=== PATIENT | male | born 1955 | race Caucasian/White ===

== ENCOUNTER 2023-07-12 13:19 | Outpatient (CLI) | payer MEDICARE, OTHER, SELFPAY ==
[2023-07-12 15:19] LABS: Absolute Lymphocyte Count 1.41 X10^3/uL (0.83-4.51); Absolute Neutrophil Count 4.5 X10^3/uL (2.0-7.7); Basophil# 0.03 X10^3/uL; Basophil% 0.4 % (0-1); Eosinophil# 0.33 X10^3/uL; Eosinophils% 4.9 % (0-5); Hematocrit 40.2 % (40-54); Hemoglobin 13.6 g/dL (13.0-16.5); Lymphocyte # 1.41 X10^3/ul (0.83-4.51); Lymphocyte % 20.8 % (19-41); Mean Corp Hgb Conc 33.8 g/dL (32-36); Mean Corpuscular Hgb 30.6 pg (27.0-32.0); Mean Corpuscular Volume 90.5 fL (80-94); Mean Platelet Vol. 8.6 fl (6.2-12.0); Monocyte# 0.49 X10^3/uL; Monocyte% 7.2 % (0-10); NRBC Flagged by Analyzer 0 % (0-5); Neutrophil # 4.48 X10^3/uL (2.7-7.7); Neutrophil % 66.1 % (47-70); Platelet Count 188 K/mm3 (150-450); RBC Distribution Width CV 14.4 % (11.6-14.6); RBC Distribution Width SD 46.5 fl (35.1-43.9); Red Blood Count 4.44 M/mm3 (4.6-6.2); White Blood Count 6.8 K/mm3 (4.4-11.0)
[2023-07-12 15:41] LABS: ALB/GLOB Ratio 0.9 RATIO (0.9-2.4); AST(SGOT) 30 U/L (15-37); Alanine Aminotransfer ALT/SGPT 50 U/L (16-61); Albumin, Serum 3.6 g/dL (3.2-5.0); Alkaline Phosphatase 79 U/L (45-117); Anion Gap 5 (5-15); BUN 16 mg/dL (7-18); Calcium,Total 9.1 mg/dL (8.5-10.1); Chloride 105 mmol/L (98-107); Cholesterol 183 mg/dL (200); Creatinine, Serum 1.23 mg/dL (0.70-1.30); EST Glomerular Filtration Rate 62 mL/min (>60); Est Glom Filt Rate - Afr Amer 75 mL/min (>60); Globulin 4.2 g/dL (2.2-4.2); Glucose 176 mg/dL (74-106); High Density Lipoprotein 37 mg/dL; PSA,Total - Annual Screen 3.16 ng/mL (0.00-4.00); Potassium 4.4 mmol/L (3.5-5.1); Protein, Total 7.8 g/dL (6.4-8.2); Sodium Level 138 mmol/L (136-145); Triglycerides 205 mg/dL; Very Low Density Lipoprotein 41 mg/dL (5-40)
== END 2023-07-12 23:59 | disposition home or self-care (01) ==
LOC: BIMLAB 13:19
PROVIDERS: PCP Physician Assistant; Referring Provider Physician Assistant; Visit Provider Physician Assistant
DX: Z12.5 Encounter for screening for malignant neoplasm of prostate (principal); E11.65 Type 2 diabetes mellitus with hyperglycemia
CPT/HCPCS: 36415; 80053; 80061; 84153; 85025; G0103

== ENCOUNTER → 2023-07-28 | Outpatient (CLI) | payer MEDICARE, OTHER, SELFPAY ==
--- NOTE | 2023-07-28 07:55 | CT_ITS ---
STUDY: CT PELVIS WITH CONTRAST REASON FOR EXAM: Male, 68 years old. Rectal abscess vs fistula -- Fistulogram / attention superior rectum RADIATION DOSAGE (If Supplied By Facility): CTDIvol = ( 19.08 ) mGy, DLP = ( 1047.56 ) mGycm TECHNIQUE: Transaxial imaging of the pelvis was performed without oral contrast. 100 CC ISOVUE 300 was administered intravenously. Multiplanar coronal and sagittal images were reformatted. Individualized dose optimization techniques were used for this CT. COMPARISON: None. FINDINGS: Distended urinary bladder. Minimally thickened bladder wall. The prostate is enlarged. It measures 4.8 cm x 4.6 cm. This causes indentation at the bladder base. Normal visualized small intestine. There are scattered colonic diverticula of the sigmoid colon consistent with chronic diverticulosis. There is no pelvic fluid. There is no pelvic lymphadenopathy or mass lesion. There is scattered atherosclerotic calcification of the pelvic arteries. Small lymph nodes are seen in both groins. The largest lymph node in the right groin measures 1.4 cm. The largest lymph node in the left groin measures 2.1 cm. There are degenerative changes of the visualized lumbar spine. CT/Pelvis WITH IV Contrast IMPRESSION: No evidence of a perirectal abscess. Prostatic enlargement with indentation of the bladder base Mild degree of bladder wall thickening. Electronically Signed: Arnaud Bello MD at 13:35 EDT ,
== END | disposition home or self-care (01) ==
LOC: CT 07:55
PROVIDERS: PCP Physician Assistant; Referring Provider Physician Assistant; Visit Provider Physician Assistant
DX: K60.4 Rectal fistula (principal)
CPT/HCPCS: 72193; Q9967

== ENCOUNTER → 2024-07-12 | Outpatient (CLI) | payer MEDICARE, SELFPAY ==
[2024-07-12 18:12] LABS: Hematocrit 44.2 % (40-54); Mean Corp Hgb Conc 33.9 g/dL (32-36); Mean Corpuscular Hgb 31.1 pg (27.0-32.0); Mean Corpuscular Volume 91.5 fL (80-94); Platelet Count 219 K/mm3 (150-450); RBC Distribution Width CV 13.7 % (11.6-14.6); Red Blood Count 4.83 M/mm3 (4.6-6.2); White Blood Count 8.4 K/mm3 (4.4-11.0)
[2024-07-12 18:43] LABS: ALB/GLOB Ratio 1.2 RATIO (0.9-2.4); AST(SGOT) 42 U/L (<=37); Alanine Aminotransfer ALT/SGPT 67 U/L (<=46); Albumin, Serum 4.2 g/dL (3.4-4.8); Alkaline Phosphatase 80 U/L (40-129); Anion Gap 12 (5-15); BUN 21 mg/dL (4-19); BUN/Creat Ratio 16.1 RATIO (10-20); Calcium,Total 9.5 mg/dL (7.6-11.0); Carbon Dioxide 22.8 mmol/L (21.0-32.0); Chloride 102 mmol/L (98-108); Cholesterol 184 mg/dL (<=200); Creatinine, Serum 1.29 mg/dL (0.70-1.20); EST Glomerular Filtration Rate 60 (>60); Globulin 3.6 g/dL (2.2-4.2); Glucose 187 mg/dL (70-99); High Density Lipoprotein 34 mg/dL; Low Density Lipoprotein Calc. 119 mg/dL; Potassium 4.8 mmol/L (3.3-5.1); Protein, Total 7.7 g/dL (5.9-8.4); Sodium Level 136 mmol/L (133-145); Total Bilirubin 0.51 mg/dL (0.00-1.30); Triglycerides 152 mg/dL; Very Low Density Lipoprotein 30 mg/dL (5-40); cholesterol:hdl ratio screen 5.38
[2024-07-12 18:46] LABS: PSA,Total - Annual Screen 2.28 ng/mL (0.02-4.00)
== END | disposition home or self-care (01) ==
LOC: BIMLAB 14:57
PROVIDERS: PCP Physician Assistant; Referring Provider Physician Assistant; Visit Provider Physician Assistant
DX: E11.65 Type 2 diabetes mellitus with hyperglycemia (principal); R03.0 Elevated blood-pressure reading, without diagnosis of hypertension; E66.9 Obesity, unspecified; Z12.5 Encounter for screening for malignant neoplasm of prostate
CPT/HCPCS: 36415; 80053; 80061; 82306; 84153; 85027; G0103

== ENCOUNTER → 2024-12-11 | Outpatient (CLI) | payer MEDICARE, SELFPAY ==
[2024-12-11 13:06] LABS: Hematocrit 41.1 % (40-54); Hemoglobin 14.2 g/dL (13.0-16.5); Immature Granulocytes Count 0.100 X10^3/uL (0.0-0.0); Mean Corp Hgb Conc 34.5 g/dL (32-36); Mean Corpuscular Volume 86.5 fL (80-94); Mean Platelet Vol. 8.9 fl (6.2-12.0); NRBC Flagged by Analyzer 0 % (0-5); POSITIVE DIFFERENTIAL YES; Platelet Count 241 K/mm3 (150-450); RBC Distribution Width CV 15.3 % (11.6-14.6); RBC Distribution Width SD 47.4 fl (35.1-43.9); Red Blood Count 4.75 M/mm3 (4.6-6.2); White Blood Count 13.0 K/mm3 (4.4-11.0)
[2024-12-11 13:13] LABS: Differential Indicated SCAN CRITERIA MET
[2024-12-11 14:14] LABS: AST(SGOT) 19 U/L (<=37); Alanine Aminotransfer ALT/SGPT 12 U/L (<=46); Albumin, Serum 3.8 g/dL (3.4-4.8); Alkaline Phosphatase 91 U/L (40-129); Anion Gap 12 (5-15); BUN 27 mg/dL (4-19); BUN/Creat Ratio 20.5 RATIO (10-20); Calcium,Total 9.3 mg/dL (7.6-11.0); Carbon Dioxide 21.2 mmol/L (21.0-32.0); Chloride 107 mmol/L (98-108); Cholesterol 73 mg/dL (<=200); Globulin 3.3 g/dL (2.2-4.2); Glucose 95 mg/dL (70-99); Low Density Lipoprotein Calc. 16 mg/dL; Potassium 3.5 mmol/L (3.3-5.1); Triglycerides 110 mg/dL; Very Low Density Lipoprotein 22 mg/dL (5-40); cholesterol:hdl ratio screen 2.09
[2024-12-12 16:09] LABS: Immunoglobulin A 242 mg/dL (61-437)
== END | disposition home or self-care (01) ==
LOC: LAB 12:03
PROVIDERS: PCP Physician Assistant; Referring Provider Physician Assistant; Visit Provider Physician Assistant
DX: E11.65 Type 2 diabetes mellitus with hyperglycemia (principal); D64.9 Anemia, unspecified; R19.7 Diarrhea, unspecified; I25.10 Atherosclerotic heart disease of native coronary artery without angina pectoris
CPT/HCPCS: 36415; 80053; 80061; 82784; 83516; 85025; 86255

== ENCOUNTER → 2024-12-14 | Outpatient (CLI) | payer MEDICARE, SELFPAY ==
--- OUTSIDE RECORDS SUMMARY | 2024-12-14 07:08 | XMS RPT_ITS | CCD ---
Author Organization [facility] Care Team Providers Care Neurophysiologist Name Role Phone BOB FELDMAN Unavailable Unavailable IMCA Unavailable Unavailable IMCA Unavailable Unavailable Errol Dove Unavailable Unavailabl e IMCA Unavailable Unavailable BOB FELDMAN Unavailable Unavailable BOB FELDMAN Unavailable Unavailable IMCA Unavailable Unavailable Dave Osman Jr. Primary Care Provider Dave Osman Jr. Primary Care Provider Trisha DOZIER, Deirdre Pastrana Primary Care Provider AMADO Ta Attending Provider [phone] AMADO Ta Primary Care Provider DEBBY Ibrahim Attending Provider Unavailable Mario Ta Primary Care Provider [phone] Mario Ta Attending Provider [phone] Mario Ta Referring Provider [phone] Mario Bellamy Primary Care Provider [phone] JANAY WEBSTER Admitting Unavailable SEAMUS WEBSTERI Attending Unavailable MARIO BELLAMY Primary Care Unavailable OSBALDO ARREOLA Consulting Unavailable Mario Ta Primary Care Provider [phone] Mario Ta Attending Provider [phone] Mario Ta Referring Provider [phone] Mario Ta Primary Care Provider [phone] Mario Ta Attending Provider [phone] Mario Ta Referring Provider [phone] EMILY TOMAS Admitting Unavailable DAVE GAINES Attending Unavailable MARIO BELLAMY Primary Care Unavailable MOISES GARCIA Consulting Unavailable MICHALE MARINELLIH Attending Unavailable WAYT, MARIO P Primary Care Unavailable PISTONE, SHANTELL Attending Unavailable WAYT, MARIO P Primary Care Unavailable WAYT, MARIO P Primary Care Unavailable MAHENDRA DENT Referring Unavailable HAWRYLUK, TANI Attending Unavailable WAYT, MARIO P Primary Care Unavailable PISTONE, SHANTELL Attending Unavailable WAYT, MARIO P Primary Care Unavailable HAWRYLUK, TANI Referring Unavailable WAYT, MARIO P Primary Care Unavailable HAWRYLUK, TANI Attending Unavailable HAWRYLUK, TANI Referring Unavailable WAYT, MARIO P Primary Care Unavailable Wayt PA, Mario Referring Unavailable Wayt PA, Mario Attending Unavailable Wayt PA, Mario Primary Care Unavailable Wayt PA, Mario Primary Care Unavailable Wayt PA, Mario Referring Unavailable Wayt PA, Mario Attending Unavailable Wayt PA, Mario Referring Unavailable Wayt PA, Mario Attending Unavailable Wayt PA, Mario Primary Care Unavailable Wayt PA, Mario Referring Unavailable Wayt PA, Mario Attending Unavailable Wayt PA, Mario Primary Care Unavailable Wayt PA, Mario Referring Unavailable Wayt PA, Mario Attending Unavailable Wayt PA, Mario Primary Care Unavailable Wayt PA, Mario Referring Unavailable Wayt PA, Mario Attending Unavailable Wayt PA, Mario Primary Care Unavailable Wayt PA, Mario Primary Care Unavailable Wayt PA, Mario Referring Unavailable Wayt PA, Mario Attending Unavailable Wayt PA, Mario Primary Care Unavailable Wayt PA, Mario Referring Unavailable Wayt PA, Mario Attending Unavailable Wayt PA, Mario Referring Unavailable Wayt PA, Mario Attending Unavailable Wayt PA, Mario Primary Care Unavailable Wayt PA, Mario Primary Care Unavailable Wayt PA, Mario Referring Unavailable Wayt PA, Mario Attending Unavailable Medications Current Medications Medication Drug Class(es) Dates Sig (Normalized) Sig (Original) acetaminophen 500 mg oral capsule (15 sources) Start: 09-25-2024 take 2 capsules by mouth every four hours as needed Acetaminophen 500 mg capsule Active 1000 mg PO Q4H as needed September 25, 2024 12:00am Start: 09-05-2024 End: 10-03-2024 take 2 tablets by mouth four times daily acetaminophen (TYLENOL) 500 mg tablet Take 2 tablets by mouth four times daily. 09/05/2024 10/03/2024 Discontinued (Course of therapy completed) aspirin 81 mg oral tablet (19 sources) Platelet Aggregation Inhibitor, Nonsteroidal Anti-inflammatory Drug Start: 12-06-2024 take 1 tablet by mouth once daily in the morning Aspirin 81 mg tablet Active 81 mg PO EVERY MORNING December 06, 2024 2:49pm Start: 10-03-2024 End: 11-02-2024 take 1 tablet by mouth once daily aspirin 81 mg chewable tablet Take 1 tablet by mouth once daily. 420 tablet 10/03/2024 Active Start: 09-25-2024 End: 12-06-2024 take 2 tablets by mouth once daily in the morning Aspirin 81 mg tablet Discontinued 162 mg PO EVERY MORNING September 25, 2024 12:00am December 06, 2024 2:50pm Start: 09-06-2024 End: 10-06-2025 take 2 tablets by mouth once daily, then take 1 tablet by mouth once daily aspirin 81 mg chewable tablet Take 2 tablets by mouth once daily for 30 days, THEN 1 tablet once daily. 420 tablet 09/06/2024 10/03/2024 Discontinued (Adjust Sig - Block E-Cancel) atorvastatin 40 mg oral tablet (20 sources) HMG-CoA Reductase Inhibitor Start: 09-25-2024 End: 10-16-2024 take 2 tablets by mouth once daily Atorvastatin 20 mg tablet Discontinued 40 mg PO daily September 25, 2024 12:57pm October 16, 2024 4:06pm Start: 09-06-2024 End: 01-01-2025 take 1 tablet by mouth once daily atorvastatin (LIPITOR) 40 mg tablet Take 1 tablet by mouth once daily. 90 tablet 10/03/2024 01/01/2025 Active Start: 08-09-2024 End: 09-25-2024 take 1 tablet by mouth once daily Atorvastatin 20 mg tablet Discontinued 20 mg PO daily 30 2 August 09, 2024 12:00am September 25, 2024 1:02pm benoxinate hydrochloride 4 mg/ml / fluorescein sodium 2.5 mg/ml ophthalmic solution (3 sources) Diagnostic Dye Start: 12-20-2021 End: 12-20-2021 fluorescein-benoxinate 0.25-0.4 % 1 Drop (FLURESS) Start: 12-09-2021 End: 12-09-2021 fluorescein-benoxinate 0.25- 0.4 % 1 Drop (FLURESS) Start: 11-17-2021 End: 11-18-2021 fluorescein-benoxinate 0.25- 0.4 % 1 Drop (FLURESS) finasteride 5 mg oral tablet (12 sources) 5-alpha Reductase Inhibitor Start: 09-20-2024 End: 10-16-2024 finasteride (PROSCAR) 5 mg tablet Take 5 mg by mouth. 09/20/2024 Active glucagon (rdna) 1 mg injection (11 sources) Antihypoglycemic Agent Start: 09-05-2024 glucago n 1 mg/mL injection Inject 1 mg intramuscularly as needed (for hypoglycemia). 09/05/2024 Active 3 ml insulin glargine 100 unt/ml pen injector (20 sources) Insulin Analog Start: 10-16-2024 End: 10-29-2024 Insulin Glargine (Lantus Solostar U-100 Insulin) 100 unit/mL (3 mL) insulin pen Active 40 U SC EVERY MORNING 15 October 29, 2024 4:30pm Start: 10-03-2024 inject 40 [IU] by duff bcutaneous injection once daily in the morning insulin glargine 100 unit/mL (3 mL) Inject 40 Units subcutaneously every morning. 10/03/2024 Active Start: 09-25-2024 End: 10-16-2024 Insulin Glargine (Lantus Yamini ostar U-100 Insulin) 100 unit/mL (3 mL) insulin pen Discontinued 32 U SC EVERY MORNING 15 September 26, 2024 5:13pm October 16, 2024 4:09pm Start: 09-05-2024 End: 10-03-2024 inject 25 [IU] by subcutaneous injection once daily in the morning insulin glargine 100 unit/mL (3 mL) Inject 25 Units subcutaneously every morning. 09/05/2024 10/03/2024 Discontinued 3 ml insulin lispro 100 unt/ml pen injector (20 sources) Insulin Analog Start: 10-16-2024 End: 10-30-2024 Insulin Lispro (Humalog Kwikpen Insulin) 100 unit/mL insulin pen Active 1 sliding scale dose SC THREE TIMES A DAY 22 06October 30, 2024 4:22pm Glucose [id number] = 0 units glucose 150 to 200 = 2 units, glucose 200 to 250 = 4 units, glucose 250 to 300 = 6 units, glucose 300 to 350 = 8 units, glucose 350 to 400 = 12 units and notify provider Start: 09-25-2024 End: 10-16-2024 Insulin Lispro (Humalog Kwik pen Insulin) 100 unit/mL insulin pen Discontinued SC September 25, 2024 12:00am October 16, 2024 5:02pm Start: 09-05-2024 insulin lispro 100 unit/mL injection Give 6 units TID with meals AND ADMINISTER CORRECTIONAL INSULIN REGARDLESS OF MEAL OR NUTRITION INTAKE Scale 2 If Blood Glucose (mg/dL) is: Less than 110 Give 0 units 111-150 Give 0 units 151-200 Give 2 unit 201-250 Give 4 units 251-300 Give 6 units 301-350 Give 8 units 351-400 Give 10 units Greater than 400 Give 10 units and Notify Provider Notify provider if 2 consecutive blood glucose values in the previous 24 hours are greater than 250 mg/dL and there have been no changes to the insulin regimen in the previous 24 hours. 09/05/2024 Active L.Acidoph,Saliva-B.Bif-S.The rm 175 mg capsule (4 sources) Start: 09-25-2024 L.Acidoph,Saliva-B.Bif-S.The rm 175 mg capsule Active NMA PO September 25, 2024 12:00am methocarbamol 500 mg oral tablet (17 sources) Muscle Relaxa nt Start: 09-05-2024 End: 11-15-2024 take 1 tablet by mouth every eight hours as needed methocarbamol (ROBAXIN) 500 mg tablet Take 1 tablet by mouth three times a day as needed (muscle spasms). 09/05/2024 Active metoprolol tartrate 25 mg or al tablet (20 sources) beta-A [facility] [place] [facility] Start: 09-25-2024 End: 10-16-2024 Metoprolol Tartrate 25 mg tablet Active 12.5 mg PO TWICE A DAY 180 October 16, 2024 4:57pm Start: 09-05-2024 End: 01-01-2025 take 0.5 tablet by mouth every twelve hours metoprolol tartrate, short acting, (LOPRESSOR) 25 mg tablet Take 0.5 tablets by mouth every 12 hours. Hold if HR 90 tablet 10/03/2024 01/01/2025 Active ondansetron 4 mg disintegrating oral tablet (14 sources) Serotonin-3 Receptor Antagonist Start: 12-06-2024 take 1 tablet by mouth every six hours as needed for nausea and vomiting Ondansetron 4 mg tablet,disintegrating Active 4 mg PO EVERY 6 HOURS as needed for nausea and vomiting 20 December 06, 2024 12:00am Start: 11-11-2024 End: 11-15-2024 take 1 tablet by mouth every six hours as needed for nausea and vomiting Ondansetron 4 mg tablet,disintegrating Discontinued 4 mg PO EVERY 6 HOURS as needed for nausea and vomiting 14 November 11, 2024 12:00am November 15, 2024 1:48pm Start: 09-05-2024 End: 10-03-2024 take 4 mg intravenously every six hours as needed ondansetron, PF, (ZOFRAN) 4 mg/2 mL soln Inject 4 mg intravenously every 6 hours as needed for nausea/vomiting. 09/05/2024 10/03/2024 Discontinued (Course of therapy completed) oxyCODONE hydrochloride 5 mg oral tablet (2 sources) Opioid Agonist Start: 09-05-2024 End: 09-12-2024 take 1 tablet by mouth every four hours as needed oxyCODONE IR (ROXICODONE) 5 mg immediate release tablet Take 1 tablet by mouth every 4 hours as needed for pain for up to 7 days. 0 09/05/2024 09/12/2024 Active pantoprazole 40 mg delayed release oral tablet (18 sources) Proton Pump Inhibitor Start: 09-06-2024 End: 11-02-2024 take 1 tablet by mouth once daily in the morning pantoprazole DR (PROTONIX) 40 mg tablet Take 1 tablet by mouth daily at 6 am. 30 tablet 1 10/03/2024 Active phenylephrine hydrochloride 25 mg/ml ophthalmic solution (3 sources) alpha-1 Adrenergic Agonist Start: 12-20-2021 End: 12-20-2021 PHENYLephrine 2.5 % 1 Drop (AK-DILATE, MARIA DE JESUS-SYNEPHRINE) Start: 12-09-2021 End: 12-09-2021 PHENYLephrine 2.5 % 1 Drop ( AK-DILATE, MARIA DE JESUS-SYNEPHRINE) Start: 11-17-2021 End: 11-18-2021 PHENYLephrine 2.5 % 1 Drop ( AK-DILATE, MARIA DE JESUS-SYNEPHRINE) polyethylene glycol 3350 45160 mg powder for oral solution (15 sources) Osmotic Laxative Start: 09-06-2024 End: 10-03-2024 Polyethylene Glycol 3350 (Miralax) 17 gram/dose powder Active 4 g PO daily as needed September 25, 2024 12:00am proparacaine hydrochloride 5 mg/ml ophthalmic solution (2 sources) Local Anesthetic Start: 12-20-2021 End: 12-20-2021 proparacaine 0.5 % 1 Drop (ALCAINE) Start: 12-09-2021 End: 12-09-2021 proparacaine 0.5 % 1 Drop (A LCAINE) Selenium (2 sources) Start: 06-23-2023 take 200 ug by mouth once daily Selenium Active 200 MCG PO DAILY June 23, 2023 12:00am Selenium 200 mcg capsule (5 sources) Start: 06-23-2023 take 1 capsule by mouth once daily Selenium 200 mcg capsule Active 200 ug PO DAILY June 23, 2023 12:00am Sennosides (Senokot) 8.6 mg tablet (4 sources) Start: 09-25-2024 take 1 tablet by mouth once daily as needed Sennosides (Senokot) 8.6 mg tablet Active 8.6 mg PO daily as needed September 25, 2024 12:00am tamsulosin hydrochloride 0.4 mg oral capsule (12 sources) alpha-Adrenergi c Gustavo Start: 09-19-2024 End: 10-16-2024 tamsulosin (FLOMAX) 0.4 mg Take 0.4 mg by mouth. 09/19/2024 Active Thyroid (Pork) (Sand Operator Thyroid) 120 mg tablet (17 sources) Start: 06-13-2024 take 1 tablet by mouth once daily Thyroid (Pork) (Sand Operator Thyroid) 120 mg tablet Active 120 mg PO DAILY June 13, 2024 4:49pm Start: 06-13-2024 take 1 tablet by ervin th once daily Thyroid (Pork) (Sand Operator Thyroid) 120 mg tablet Active 120 mg PO DAILY June 13, 2024 4:49pm Start: 12-15-2023 End: 06-13-2024 take 1 tablet by mouth once daily Thyroid (Pork) (Sand Operator Thyroid) 120 mg tablet Discontinued 120 mg PO DAILY December 15, 2023 4:56pm June 13, 2024 4:50pm Start: 12-15-2023 End: 06-13-2024 take 1 tablet by mouth once daily Thyroid (Pork) (Sand Operator Thyroid) 120 mg tablet Discontinued 120 mg PO DAILY December 15, 2023 4:56pm June 13, 2024 4:50pm Start: 06-23-2023 End: 12-15-2023 take 1 tablet by mouth once daily Thyroid (Pork) (Sand Operator Thyroid) 120 mg tablet Discontinued 120 mg PO DAILY June 23, 2023 12:00am December 15, 2023 4:57pm Start: 06-23-2023 take 1 tablet by ervin th once daily Thyroid (Pork) (Sand Operator Thyroid) 120 mg tablet Active 120 MG PO DAILY June 23, 2023 12:00am thyroid (alf) 120 mg oral tablet (20 sources) Start: 09-29-2021 End: 09-05-2024 take 1 tablet by mouth once daily thyroid, pork, 120 mg tablet Take 1 tablet by mouth once daily. 09/05/2024 Active Comment on above: Take 120 mg by mouth once daily. tropicamide 10 mg/ml ophthalmic solution (3 sources) Anticholinergic Start: 12-20-2021 End: 12-20-2021 tropicamide 1 % 1 Drop (MYDRIACYL) Start: 12-09-2021 End: 12-09-2021 tropicamide 1 % 1 Drop (MYDR IACYL) Start: 11-17-2021 End: 11-18-2021 tropicamide 1 % 1 Drop (MYDR IACYL) Completed/Discontinued Medications Medication Drug Class(es) Dates Sig (Normalized) Sig (Original) Adren-all (7 sources) Start: 06-23-2023 Adren-all Acti ve PO 1 time daily June 23, 2023 12:00am On Hold: per [facility] Start: 06-23-2023 Adren-all Acti ve PO 1 time daily June 23, 2023 12:00am albuterol 0.83 mg/ml inhalation solution (11 sources) beta2-Adrenergic Agonist Start: 09-05-2024 End: 10-03-2024 take 2.5 mg by inhalation every two hours as needed albuterol (PROVENTIL) 2.5 mg /3 mL (0.083 %) nebulizer solution Use 3 mL via nebulizer every 2 hours as needed for wheezing/shortness of breath. 09/05/2024 10/03/2024 Discontinued (Course of therapy completed) ascorbic acid 1000 mg oral capsule (19 sources) Vitamin C Start: 06-23-2023 take 1 g by mouth once daily Ascorbic Acid (Vitamin C) 1,000 mg capsule Active 1 g PO DAILY June 23, 2023 12:00am On Hold: per [facility] Start: 06-23-2023 take 1 g by mouth once daily A scorbic Acid (Vitamin C) Active 1 GM PO DAILY June 23, 2023 12:00am End: 09-05-2024 take 1 tablet by mouth once daily Ascorbic Acid 1,000 mg tablet Take 1,000 mg by mouth once daily. 09/05/2024 Discontinued Comment on above: 1 tab(s) once daily. bacillus coagulans [id number] unt / inulin 250 mg oral capsule (8 sources) Bacillus coagula ns-Inulin (PROBIOTIC FORMULA, INULIN,) 1 billion-250 cell-mg cap once daily. 0 Active Bacillus coagula ns-Inulin (PROBIOTIC FORMULA, INULIN,) 1 billion-250 cell-mg cap 1 scoop 0 Active Comment on above: 1 scoop once daily. bethanechol chloride 5 mg oral tablet (10 sources) Cholinergic Muscarinic Agonist Start: End: take 3 tablets by mouth three times daily Bethanechol Chloride 5 mg tablet Discontinued 15 mg PO THREE TIMES A DAY 90 0 October 16, 2024 5:00pm December 06, 2024 2:49pm take 1 tablet by ervin three times daily bethanechol (URECHOLINE) 5 mg tablet Vadim e 5 mg by mouth three times a day. Active Calcium Carbonate / vitamin D3 (8 sources) CALCIUM CARBONATE/VITAMIN D3 (VITAMIN D-3 ORAL) Take by mouth twice daily. 0 Active Comment on above: Take by mouth twice daily. cholecalciferol 0.125 mg oral capsule (17 sources) Vitamin D Start: 06-23-19 End: 12-22-19 24 take 3 capsules by mouth every week Cholecalciferol (Vitamin D3) 125 mcg (5,000 unit) capsule Active 125 ug PO .three times weekly December 22, 2023 11:08am On Hold: per [facility] takes 3 x/wk Mon End: 09-05-2024 cholecalciferol (VITAMIN D3) 5,000 unit tab Take 5,000 Units by mouth. M-W-F 09/05/2024 Discontinued Comment on above: Take 5,000 Units by mouth. -W- DIETARY SUPPLEMENT ORAL (8 sources) DIETARY SUPPLEME NT ORAL Take by mouth once daily. Nature-throid 0 Active Comment on above: Take by mouth once d aily. Nature-throid docusate sodium 50 mg / sennosides, alf 8.6 mg oral tablet (11 sources) Start: 09-06-19 End: 10-04-19 take 2 tablets by mouth twice daily senna-docusate (SENNA-S) 8.6-50 mg per tablet Take 2 tablets by mouth two times a day. Hold for loose stool 09/05/2024 10/03/2024 Discontinued (Course of therapy completed) empagliflozin 25 mg oral tablet (18 sources) Sodium-Glucose Cotransporter 2 Inhibitor Start: 05-14-19 End: 09-26-19 take 1 tablet by mouth once daily in the morning Empagliflozin (Jardiance) 25 mg tablet Discontinued 25 mg PO EVERY MORNING August 14, 2024 10:24pm September 25, 2024 1:00pm Start: 04-12-2024 End: 05-14-2024 take 1 tablet by mouth once daily in the morning Empagliflozin (Jardiance) 10 mg tablet Discontinued 10 mg PO EVERY MORNING 30 April 12, 2024 1:00am May 14, 2024 10:41am 0.4 ml enoxaparin sodium 100 mg/ml prefilled syringe (11 sources) Low Molecular Weight Heparin Start: 09-06-2024 End: 10-03-2024 inject 0.4 mL by subcutaneous injection once daily enoxaparin (LOVENOX) 40 mg/0.4 mL Inject 0.4 mL subcutaneously once daily. 09/06/2024 10/03/2024 Discontinued (Course of therapy completed) folic acid 1 mg oral tablet (15 sources) Start: 09-06-2024 End: 10-16-2024 take 1 tablet by mouth once daily Folic Acid 1 mg tablet Discontinued 1 mg PO daily September 25, 2024 12:00am October 16, 2024 4:07pm furosemide 40 mg oral tablet (15 sources) Loop Diuretic Start: 09-06-2024 End: 10-16-2024 take 1 tablet by mouth once daily in the morning Furosemide 40 mg tablet Discontinued 40 mg PO EVERY MORNING September 25, 2024 12:00am October 16, 2024 4:07pm gatifloxacin 5 mg/ml ophthalmic solution (6 sources) Quinolone Antimicrobial Start: 12-20-2021 take 1 drop(s) into the eye(s) four times daily Gatifloxacin 0.5 % drop Use 1 Drop in the right eye four times daily. 2.5 mL 1 12/20/2021 Active Comment on above: Use 1 Drop in the ri ght eye four times daily. glipiZIDE 5 mg oral tablet (20 sources) Sulfonylurea Start: 05-31-2024 End: 09-05-2024 take 1 tablet by mouth every twelve hours glipiZIDE (GLUCOTROL) 5 mg tablet Take 1 tablet by mouth every 12 hours. 05/31/2024 09/05/2024 Discontinued Start: 06-23-2023 End: 09-25-2024 take 1 tablet by mouth twice daily Glipizide 5 mg tablet Discontinued 5 mg PO TWICE A DAY 180 1 May 31, 2024 2:44pm September 25, 2024 1:00pm IODINE, KELP, ORAL (12 sources) End: 09-05-2024 take 0.5 tablet by mouth once daily IODINE, KELP, ORAL Take 0.5 tablets by mouth once daily. 09/05/2024 Discontinued take 0.5 tablet by mouth once da darryl IODINE, KELP, ORAL Take 0.5 tablets by mouth once daily. Suspended IODINE, KELP, OR AL Take by mouth twice daily. 0 Active Comment on above: Take by mouth twice daily. iodoral (7 sources) Start: 06-23-2023 take 12.5 mg by mouth once daily iodoral Active 12.5 mg PO 1 time daily June 23, 2023 12:00am On Hold: per [facility] Start: 06-23-2023 take 12.5 mg by mouth once cathy ly iodoral Active 12.5 mg PO 1 time daily June 23, 2023 12:00am Start: 06-23-2023 take 12.5 mg by mouth once cathy ly iodoral Active 12.5 MG PO 1 time daily June 23, 2023 12:00am ketorolac tromethamine 5 mg/ml ophthalmic solution (6 sources) Nonsteroidal Anti-inflammatory Drug, Cyclooxygenase Inhibitor Start: 12-20-2021 take 1 drop(s) into the eye(s) four times daily keTORolac (ACULAR) 0.5 % ophthalmic solution Use 1 Drop in the right eye four times daily. 5 mL 1 12/20/2021 Active Comment on above: Use 1 Drop in the ri ght eye four times daily. L. acidophilus-L. salivarius-B. bifidum-S. thermophilus (ACIDOPHILUS) 175 mg capsule (3 sources) Start: 09-20-2024 End: 10-03-2024 take 1 capsule by mouth in the morning L. acidophilus-L. salivarius-B. bifidum-S. thermophilus (ACIDOPHILUS) 175 mg capsule TAKE 1 EACH BY MOUTH IN THE MORNING FOR 8 DAYS. 09/20/2024 10/03/2024 Discontinued (Course of therapy completed) Start: 09-20-2024 take 1 capsule by mo ut in the morning L. acidophilus-L. salivarius-B. bifidum-S. thermophilus (ACIDOPHILUS) 175 mg capsule TAKE 1 EACH BY MOUTH IN THE MORNING FOR 8 DAYS. 09/20/2024 Active lidocaine 0.04 mg/mg medicated patch (11 sources) Antiarrhythmic, Amide Local Anesthetic Start: 09-06-2024 End: 10-03-2024 lidocaine (SALONPAS) 4 % patch Apply 1 patch as directed once daily. Cut patch in half lengthwise and apply to either side of midsternal incision daily. Leave on x 12 hours then remove x 12 hours 09/06/2024 10/03/2024 Discontinued (Cost of medication) MEDICATION, NON-DATABASE (11 sources) End: 09-05-2024 take 1 tablet by mouth once daily MEDICATION, NON-DATABASE Take 1 tablet by mouth once daily. Test-boost testosterone Max supplement 09/05/2024 Discontinued take 1 tablet by mouth once tobias y MEDICATION, NON-DATABASE Take 1 tablet by mouth once daily. Test-boost testosterone Max supplement Suspended MEDICATION, NON- DATABASE Test-boost testosterone supllement 0 Active Comment on above: Test-boost testoster one supllement melatonin 3 mg oral tablet (11 sources) Start: End: take 1 tablet by mouth every twenty-four hours as needed melatonin 3 mg tablet Take 1 tablet by mouth at bedtime as needed (insomnia). 09/05/2024 10/03/2024 Discontinued (Course of therapy completed) NATURE THYROID ORAL (8 sources) NATURE THYROID O RAL Nature Thyroid 0 Active Comment on above: Nature Thyroid omega-3s/dha/epa/fis h oil/D3 (VITAMIN-D + OMEGA-3 ORAL) (8 sources) omega-3s/dha/epa /fis h oil/D3 (VITAMIN-D + OMEGA-3 ORAL) Vitamin D 0 Active Comment on above: Vitamin D optiprostat (7 sources) Start: optiprostat Active PO 1 time daily June 23, 2023 12:00am On Hold: per [facility] Start: 06-23-2023 optiprostat Ac tive PO 1 time daily June 23, 2023 12:00am ORGAN CONCENTRATES (ADRENAL ORAL) (12 sources) End: 09-05-2024 take 1 capsule by mouth once daily ORGAN CONCENTRATES (ADRENAL ORAL) Take 1 capsule by mouth once daily. 09/05/2024 Discontinued take 1 capsule by mouth once cathy ly ORGAN CONCENTRATES (ADRENAL ORAL) Take 1 capsule by mouth once daily. Suspended ORGAN CONCENTRAT ES (ADRENAL ORAL) Take by mouth twice daily. 0 Active Comment on above: Take by mouth twice daily. prednisoLONE acetate 10 mg/ml ophthalmic suspension (6 sources) Corticosteroid Start: 12-20-2021 prednisoLONE acetate (PRED FORTE, ECONOPRED PLUS) 1 % ophthalmic suspension Use 1 Drop in the right eye four times daily. 5 mL 1 12/20/2021 Active Comment on above: Use 1 Drop in the ri ght eye four times daily. selenium (12 sources) End: 09-05-2024 selenium Take by mouth once daily. 09/05/2024 Discontinued selenium Take by mouth once daily. Suspended selenium Take by mouth twice daily. 0 Active Comment on above: Take by mouth twice daily. simethicone 80 mg chewable tablet (11 sources) Start: 09-06-19 End: 10-04-19 take 1 tablet by mouth every six hours as needed simethicone, chewable (MYLICON) 80 mg chewable tablet Take 1 tablet by mouth four times a day as needed (gas, bloating). 09/05/2024 10/03/2024 Discontinued (Course of therapy completed) sulfamethoxazole 800 mg / trimethoprim 160 mg oral tablet (7 sources) Dihydrofolate Reductase Inhibitor Antibacterial, Sulfonamide Antimicrobial Start: 09-26-19 End: 11-16-19 Sulfamethoxazole-Tr imethoprim 800-160 mg tablet Discontinued {tbl} PO September 25, 2024 12:00am November 15, 2024 1:50pm sulfamethoxazole -trimethoprim (BACTRIM DS) 800-160 mg per tablet PLEASE SEE ATTACHED FOR DETAILED DIRECTIONS Active test boost max (7 sources) Start: 06-23-2023 End: 10-16-2024 test boost max Discontinued PO 1 time daily June 23, 2023 12:00am October 16, 2024 4:09pm On Hold: per [facility] Start: 06-23-2023 test boost max Active PO 1 time daily June 23, 2023 12:00am On Hold: per [facility] Start: 06-23-2023 test boost max Active PO 1 time daily June 23, 2023 12:00am Problems Active Problems Problem Classification Problem Date Documented Da te Episodic/Chronic Acute myocardial infarction (18 sources) Myocardial infarction; Translations: [Non-ST elevation (NSTEMI) myocardial infarction] Onset: 5 08-15-2024 Chronic Anal and rectal conditions (16 sources) Rectal fistula; Translations: [Rectal fistula] 06-23-2023 Episodic Cardiac dysrhythmias (2 sources) Supraventricular tachycardia; Translations: [SVT (supraventricular tachycardia) (HCC)] Onset: 5 12-11-2024 Chronic Cataract (20 sources) Posterior subcapsular polar senile cataract of right eye; Translations: [Posterior subcapsular polar age-related cataract, right eye] Onset: Chronic Complications of surgical procedures or medical care (19 sources) Postoperative hypothyroidism; Translations: [Postprocedural hypothyroidism] Onset: 4 01-21-2022 Chronic Conditions associated with dizziness or vertigo (8 sources) Dizziness; Translations: [Dizziness and giddiness] 08-09-2024 Episodic Congestive heart failure; nonhypertensive (3 sources) Chronic systolic heart failure; Translations: [Chronic systolic (congestive) heart failure] Onset: 5 12-11-2024 Chronic Coronary atherosclerosis and other heart disease (20 sources) Coronary arteriosclerosis; Translations: [Atherosclerotic heart disease of [place] coronary artery with unstable angina pectoris] Onset: 5 08-20-2024 Chronic Deficiency and other anemia (1 source) Anemia, unspecified; Translations: [Anemia, unspecified] Onset: 5 Episodic Diabetes mellitus with complications (20 sources) Type II diabetes mellitus uncontrolled; Translations: [Uncontrolled type 2 diabetes mellitus] Onset: 5 06-23-2023 Chronic Diabetes mellitus without complication (1 source) Prediabetes; Translations: [Prediabetes] Episodic Fluid and electrolyte disorders (1 source) Hypervolemia; Translations: [Fluid overload, unspecified] 09-16-2024 Episodic Genitourinary symptoms and ill-defined conditions (18 sources) Disorder of urinary tract; Translations: [Disorder of urinary system, unspecified] Onset: 5 Episodic Gout and other crystal arthropathies (1 source) Acute gout; Translations: [Gout, unspecified] Onset: 5 01-21-2022 Chronic Nutritional deficiencies (15 sources) Undernutrition; Translations: [Mild protein-calorie malnutrition] Onset: 5 08-23-2024 Chronic Other aftercare (1 source) Encounter for other specified aftercare; Translations: [Encounter for care involving use of rehabilitation procedure] Onset: 5 Episodic Other circulatory disease (14 sources) Elevated blood pressure; Translations: [Elevated blood-pressure reading, without diagnosis of hypertension] 12-25-2023 Episodic Other connective tissue disease (10 sources) H/O: gout; Translations: [Personal history of other diseases of the musculoskeletal system and connective tissue] 06-23-2023 Episodic Other connective tissue disease (2 sources) Personal history of other diseases of the musculoskeletal system and connective tissue; Translations: [Personal history of other endocrine, metabolic, and immunity disorders] 06-23-2023 Episodic Other eye disorders (20 sources) Vitreous syneresis; Translations: [Other vitreous opacities, bilateral] Onset: 1 Chronic Other gastrointestinal disorders (2 sources) Diarrhea; Translations: [Diarrhea, unspecified] 12-06-2024 Episodic Other gastrointestinal disorders (1 source) Diarrhea, unspecified; Translations: [Diarrhea, unspecified] Onset: 5 Episodic Other injuries and conditions due to external causes (2 sources) Fracture of bone; Translations: [Other injury of unspecified body region, initial encounter] 10-02-2024 Episodic Other injuries and conditions due to external causes (1 source) Other injury of unspecified body region, initial encounter; Translations: [Fracture] Onset: 5 Episodic Other nutritional; endocrine; and metabolic disorders (14 sources) Obese class I; Translations: [Obesity, Class I, BMI 30-34.9] Onset: 5 09-02-2024 Chronic Unclassified (1 source) Unknown / UNK(Unknown) Onset: 8 Unclassified (7 sources) N39.9 - Disorder of urinary system, unspecified Unclassified (1 source) Multiple vessel coronary artery disease Unclassified (1 source) I25.10 - Atherosclerotic heart disease of [place] coronary artery without angina pectoris Unclassified (1 source) Post Op Onset: 5 Past or Other Problems Problem Classification Problem Date Documented Da te Episodic/Chronic Abdominal hernia (18 sources) Umbilical hernia without obstruction or gangrene; Translations: [Umbilical hernia] Onset: 06-06-2017 Resolved: 06-19-2017 06-19-2017 Episodic Acute and unspecified renal failure (15 sources) Acute renal failure syndrome; Translations: [Acute kidney failure, unspecified] Onset: 08-24-2024 08-24-2024 Episodic Blindness and vision defects (20 sources) Bilateral myopia of eyes; Translations: [Myopia, bilateral] Onset: 10-14-2020 10-14-2020 Episodic Complications of surgical procedures or medical care (14 sources) Iatrogenic hypotension; Translations: [Postprocedural hypotension] Onset: 08-31-2024 08-31-2024 Episodic Coronary atherosclerosis and other heart disease (1 source) Presence of aortocoronary bypass graft; Translations: [S/P CABG (coronary artery bypass graft)] Onset: 09-05-2024 Episodic E Codes: Fall (1 source) Unspecified fall, initial encounter; Translations: [Fall, initial encounter] Onset: 08-15-2024 Episodic Intestinal obstruction without hernia (15 sources) Intestinal obstruction co-occurrent and due to decreased peristalsis; Translations: [Ileus, unspecified] Onset: 08-23-2024 08-23-2024 Episodic Other fractures (19 sources) Closed fracture thoracic vertebra; Translations: [Unspecified fracture of T7-T8 vertebra, subsequent encounter for fracture with routine healing] Onset: 08-21-2024 08-21-2024 Episodic Other fractures (1 source) Unspecified fracture of T7-T8 vertebra, subsequent encounter for fracture with routine healing; Translations: [Closed fracture of eighth thoracic vertebra with routine healing, unspecified fracture morphology, subsequent encounter] Onset: 08-31-2024 Episodic Other lower respiratory disease (16 sources) Restrictive lung disease; Translations: [Other disorders of lung] Onset: 08-21-2024 08-21-2024 Episodic Other screening for suspected conditions (not mental disorders or infectious disease) (15 sources) Patient encounter status; Translations: [Encounter for screening for malignant neoplasm of prostate] Onset: 07-10-2024 07-25-2023 Episodic Syncope (1 source) Syncope and collapse; Translations: [Syncope, unspecified syncope type] Onset: 08-15-2024 Episodic Results Test Name Value Interpretation Reference Range Facility Celiac Disease Profileon ENDOMYSIAL IGA Negative Normal Negative [facility] Comment on above: Performed By: #### L 500.4100, L3410.2400, L100.0100, L500.4050 ####[facility] [id number] [place], [address] IMMUNOGLOB A QN 242 mg/dL Normal 61-437 [facility] Comment on above: Result Comment: Perf ormed at: - [facility] [address] [id number] [employer] Miller: Jenaro Ambrocio PhD, Phone: [phone] Performed By: #### L 500.4100, L3410.2400, L100.0100, L500.4050 ####[facility] [id number] [place], [address] tTG IGA <2 Normal 0-3 [facility] Comment on above: Result Comment: Nega tive 0 - 3 Weak Positive 4 - 10 Positive >10 Tissue Transglutaminase (tTG) has been identified as the endomysial antigen. Studies have demonstr- ated that endomysial IgA antibodies have over 99% specificity for gluten sensitive enteropathy. Performed By: #### L 500.4100, L3410.2400, L100.0100, L500.4050 ####[facility] [id number] [place], [address] CBC W/Diff, Automatedon 09-0 SMEAR COMMENT COMMENT Normal [facility] Comment on above: Result Comment: EOSI NOPHILIA. Performed By: #### L 500.4100, L3410.2400, L100.0100, L500.4050 #### [facility] [address] [place], [address] CNOVon 12-11-2024 CNOV Normal [facility] Comprehensive Metabolic Prof ilon 12-11-2024 Albumin [Mass/Vol] 3.8 g/dL Normal 3.4-4.8 [facility] Comment on above: Performed By: #### L 500.4100, L3410.2400, L100.0100, L500.4050 #### [facility] [address] [place], [address] Albumin/Globulin [Mass ratio] 1.2 {ratio} Normal 0.9-2.4 [facility] Comment on above: Performed By: #### L 500.4100, L3410.2400, L100.0100, L500.4050 #### [facility] [address] [place], [address] ALK PHOS 91 U/L Normal 40-129 [facility] Comment on above: Performed By: #### L 500.4100, L3410.2400, L100.0100, L500.4050 #### [facility] [address] [place], [address] ALT [Catalytic activity/Vol] 12 U/L Normal <=46 [facility] Comment on above: Performed By: #### L 500.4100, L3410.2400, L100.0100, L500.4050 #### [facility] [address] [place], [address] AST [Catalytic activity/Vol] 19 U/L Normal <=37 [facility] Comment on above: Performed By: #### L 500.4100, L3410.2400, L100.0100, L500.4050 #### [facility] [address] [place], [address] Bilirubin [Mass/Vol] 0.50 mg/dL Normal 0.00-1.30 [facility] Comment on above: Performed By: #### L 500.4100, L3410.2400, L100.0100, L500.4050 #### [facility] [address] [place], [address] BUN/CRE 20.5 RATIO High 10-20 [facility] Comment on above: Performed By: #### L 500.4100, L3410.2400, L100.0100, L500.4050 #### [facility] [address] [place], [address] Calcium [Mass/Vol] 9.3 mg/dL Normal 7.6-11.0 [facility] Comment on above: Performed By: #### L 500.4100, L3410.2400, L100.0100, L500.4050 #### [facility] [address] [place], [address] Chloride [Moles/Vol] 107 mmol/L Normal 98-108 [facility] Comment on above: Performed By: #### L 500.4100, L3410.2400, L100.0100, L500.4050 #### [facility] [address] [place], [address] CO2 [Moles/Vol] 21.2 mmol/L Normal 21.0-32.0 [facility] Comment on above: Performed By: #### L 500.4100, L3410.2400, L100.0100, L500.4050 #### [facility] [address] [place], [address] Creatinine [Mass/Vol] 1.32 mg/dL High 0.70-1.20 [facility] Comment on above: Performed By: #### L 500.4100, L3410.2400, L100.0100, L500.4050 #### [facility] [address] [place], [address] GAP 12 Normal 5-15 [facility] Comment on above: Performed By: #### L 500.4100, L3410.2400, L100.0100, L500.4050 #### [facility] [address] [place], [address] GFR/1.73 sq M.predicted among non-blacks MDRD (S/P/Bld) [Vol rate/Area] 58 mL/min/{1.73_m2} Low >60 [facility] Comment on above: Result Comment: mL/m in/1.73m2 CKD-EPI Creatinine Equation (2020) Performed By: #### L 500.4100, L3410.2400, L100.0100, L500.4050 #### [facility] [address] [place], [address] Globulin (S) [Mass/Vol] 3.3 g/dL Normal 2.2-4.2 [facility] Comment on above: Performed By: #### L 500.4100, L3410.2400, L100.0100, L500.4050 #### [facility] [address] [place], [address] Glucose [Mass/Vol] 95 mg/dL Normal 70-99 [facility] Comment on above: Performed By: #### L 500.4100, L3410.2400, L100.0100, L500.4050 #### [facility] [address] [place], [address] Potassium [Moles/Vol] 3.5 mmol/L Normal 3.3-5.1 [facility] Comment on above: Performed By: #### L 500.4100, L3410.2400, L100.0100, L500.4050 #### [facility] [address] [place], [address] Sodium [Moles/Vol] 140 mmol/L Normal 133-145 [facility] Comment on above: Performed By: #### L 500.4100, L3410.2400, L100.0100, L500.4050 #### [facility] [address] [place], [address] T PROT 7.1 g/dL Normal 5.9-8.4 [facility] Comment on above: Performed By: #### L 500.4100, L3410.2400, L100.0100, L500.4050 #### [facility] [address] [place], [address] Urea nitrogen [Mass/Vol] 27 mg/dL High 4-19 [facility] Comment on above: Performed By: #### L 500.4100, L3410.2400, L100.0100, L500.4050 #### [facility] [address] [place], [address] ECG B/O W INTERP (MED OFFICE )on 12-11-2024 Normal sinus rhythm at 80 bpm, NV 160, QRS 90, QTc 440, polymorphic PVCs. [facility] Lipid Profileon 12-11-2024 CHOL:HDL 2.09 Normal [facility] Comment on above: Performed By: #### L 500.4100, L3410.2400, L100.0100, L500.4050 ####[facility] [id number] [place], [address] Cholesterol [Mass/Vol] 73 mg/dL Normal <=[address] [facility] Comment on above: Result Comment: Chol esterol level, Desirable <200 mg/dL Borderline high cholesterol 200-239 mg/dL High cholesterol >=240 mg/dL Recommendations of the NCEP Adult Treatment Panel for the following risk-cutoff thresholds for the [place] population. Performed By: #### L 500.4100, L3410.2400, L100.0100, L500.4050 ####[facility] [id number] [place], [address] Cholesterol in HDL [Mass/Vol] 35 mg/dL Low [facility] Comment on above: Result Comment: Leanna onal Cholesterol Education Program (NCEP) guidelines: <40 mg/dL: Low HDL-cholesterol (major risk factor for CHD) >= 60 mg/dL: High HDL-cholesterol (negative risk factor for CHD) HDL-cholesterol is affected by a number of factors, e.g. smoking, exercise, hormones, sex and age. Performed By: #### L 500.4100, L3410.2400, L100.0100, L500.4050 ####[facility] [id number] [place], [address] Cholesterol in LDL [Mass/Vol] 16 mg/dL Normal [facility] Comment on above: Result Comment: Bord pdjbwc=115-994 mg/dL Higher Uhwj=468 mg/dL or greater Friedwald Equation for LDL-C Performed By: #### L 500.4100, L3410.2400, L100.0100, L500.4050 ####[facility] [id number] [place], [address] Cholesterol in VLDL [Mass/Vol] 22 mg/dL Normal 5-40 [facility] Comment on above: Performed By: #### L 500.4100, L3410.2400, L100.0100, L500.4050 ####[facility] [id number] [place], [address] Triglyceride [Mass/Vol] 110 mg/dL Normal [facility] Comment on above: Result Comment: The drugs N-Acetylcysteine and Metamizole may falsely depress this assay. Normal range: <150 mg/dL Borderline High: 150-199 mg/dL High: 200-499 mg/dL Very High: >500 mg/dL Performed By: #### L 500.4100, L3410.2400, L100.0100, L500.4050 ####[facility] [id number] [place], [address] Internal Medicine Office Vis francois 12-06-2024 Internal Medicine Office Visit [facility] [address] [place] [address] [place] [address] OFFICE VISIT Date of Service: 12/06/24 MR#: [id number] Acct: [id number] Name: ARIS ATKINS Rep #: [id number] : 1955 Provider: AMADO Serra Age/Sex: 69/M Location: [facility] [place] Status: Signed Intake Vital Signs 11/15/24 13:04 12/06/24 14:52 Height 5 ft 10 in 5 ft 10 in Weight: 200 lb 195 lb BMI 28.7 27.9 BP 120/72 120/82 H Blood Pressure Location Lt brachial Lt brachial Position Sitting Sitting Respiration 16 16 Pulse 85 67 Pulse Source Monitor Monitor Temp 96.6 F L 96.7 F L Temp Source Temporal Temporal Pulse Oximetry (%) 98 98 Oxygen Delivery Method room air room air Intake Visit Reasons: Nausea and diarrhea Chief Complaint: NAUSEA AND DIARRHEA Is patient in pain?: No Allergies No Known Allergies Allergy (Unverified 12/06/24 14:48) Medications ???Medication ???Instructions ???Recorded ???Confirmed ???Type Adren-all PO 1XD 06/23/23 12/06/24 History Held on 09/25/24. Instructions: per [facility] ascorbic acid (vitamin C) 1,000 mg 1 g PO DAILY 06/23/23 12/06/24 H istory capsule Held on 09/25/24. Instructions: per [facility] iodoral 12.5 mg PO 1XD 06/23/23 12/06/24 H istory Held on 09/25/24. Instructions: per [facility] optiprostat PO 1XD 06/23/23 12/06/24 History Held on 09/25/24. Instructions: per [facility] selenium 200 mcg capsule 200 mcg PO DAILY 06/23/23 12/06/24 History cholecalciferol (vitamin D3) 125 125 mcg PO .three times weekly 12/06/24 History mcg (5,000 unit) capsule Held on 09/25/24. Instructions: per [facility] thyroid (pork) 120 mg tablet (DYE COLORIST DYER 120 mg PO DAILY #90 tabs 06/13/24 12/06/24 Rx Thyroid) L.acidophil,salivari- Bifido cap PO 09/25/24 11/15/24 History bifidum-Strep thermoph 175 mg capsule acetaminophen 500 mg capsule 1,000 mg PO Q4H PRN 09/25/2412/06 History atorvastatin 40 mg tablet 40 mg PO QAM 09/25/24 12/06/24 His tory polyethylene glycol 3350 17 4 g PO QDAY PRN 09/25/24 12/06/24 History gram/dose oral powder (Miralax) sennosides 8.6 mg tablet (Senokot) 8.6 mg PO QDAY PRN 09/25/2411/09 History finasteride 5 mg tablet 5 mg PO QAM #90 tabs 10/16/2411/09 Rx metoprolol tartrate 25 mg tablet 12.5 mg (1/2 x 25 mg) PO BID #180 10/16/24 12/06/24 Rx tabs tamsulosin 0.4 mg capsule 0.4 mg PO QHS #90 caps 10/16/24 Rx insulin glargine 100 unit/mL (3 40 unit (0.4 mL) subcut QAM #15 mL 10/29/24 12/06/24 Rx mL) subcutaneous pen (Lantus Solostar U-100 Insulin) pen needle, diabetic 32 gauge x #100 ea 10/29/24 12/06/24 Rx 5/32 (Saba Pen Needle) insulin lispro 100 unit/mL 1 sliding scale dose subcut TID 12/06/24 Rx subcutaneous pen (Humalog KwikPen #15 mL (U-100) Insulin) aspirin 81 mg tablet 81 mg PO QAM 12/06/24 12/06/24 His tory ondansetron 4 mg disintegrating 4 mg PO Q6H PRN nausea and 5 12/06/24 Rx tablet vomiting #20 tabs Have you fallen in the past year?: Yes (AUGUST WHEN HAD MO) [facility] Medical History Back fracture ( 08/2024) Amputation of ring finger Hernia, umbilical Hernia, inguinal Gout Diabetes Surgical History S/P CABG (coronary artery bypass graft) History of hernia repair H/O thyroidectomy (Unknown) Family History Father Colon cancer Diabetes Hypertension Thyroid disorder Social History adopted: No household members: other details: [place] housing: house number of children: 1 current occupational status: retired pets and animals: Yes (dogs x 2 ) pets and animals: dog(s) history of recent travel: No Smoking Status: Never smoker second hand exposure: No alcohol intake: current alcohol intake frequency: other Previous attempts at quittin details: once or twice a month caffeine: Yes (minimal) what type of physical activity do you participate in: walking frequency: daily duration: 30-45 minutes/day seatbelt use: always do you feel safe at home: Yes HPI HPI Chief Complaint: NAUSEA AND DIARRHEA Details: ARIS ATKINS, is a 69 M who presents to the office today for episodes of diarrhea and vomiting. He states that these episodes just seem to have come out of nowhere. He states that one episode lasted less than a day. The other two episodes lased a few days. HE states that they seem to come together (not really one or the other). He has not had fevers but definitely has had some chills. Patient states that the diarrhea is just very watery. There is no blood or mucus. He has not had any abdominal pains or cramping. He states that he just feels like the (more content not included)... Normal [facility] Internal Medicine Office Vis iton 11-15-2024 Internal Medicine Office Visit [facility] [address] [place] [address] [place] [address] OFFICE VISIT Date of Service: 11/15/24 MR#: [id number] Acct: [id number] Name: ARIS ATKINS Rep #: [id number] : 1955 Provider: AMADO Serra Age/Sex: 69/M Location: [facility] [place] Status: Signed Intake Vital Signs 10/16/24 16:10 11/15/24 13:04 Height 5 ft 10 in 5 ft 10 in Weight: 206 lb 200 lb BMI 29.5 28.7 BP 114/78 120/72 Blood Pressure Location Lt brachial Lt brachial Position Sitting Sitting Respiration 16 16 Pulse 70 85 Pulse Source Monitor Monitor Temp 97.5 F L 96.6 F L Temp Source Temporal Temporal Pulse Oximetry (%) 99 98 Oxygen Delivery Method room air room air Intake Visit Reasons: 1 M FU Chief Complaint: 1m f/u Bilingual Receptionist Required: No Accompanied by: Is patient in pain?: No Allergies No Known Allergies Allergy (Unverified 11/15/24 12:59) Medications ???Medication ???Instructions ???Recorded ???Confirmed ???Type Adren-all PO 1XD 06/23/23 11/15/24 History Held on 09/25/24. Instructions: per [facility] ascorbic acid (vitamin C) 1,000 mg 1 g PO DAILY 06/23/23 11/15/24 H istory capsule Held on 09/25/24. Instructions: per [facility] iodoral 12.5 mg PO 1XD 06/23/23 11/15/24 H istory Held on 09/25/24. Instructions: per [facility] optiprostat PO 1XD 06/23/23 11/15/24 History Held on 09/25/24. Instructions: per [facility] selenium 200 mcg capsule 200 mcg PO DAILY 06/23/23 11/15/24 History cholecalciferol (vitamin D3) 125 125 mcg PO .three times weekly 11/15/24 History mcg (5,000 unit) capsule Held on 09/25/24. Instructions: per [facility] thyroid (pork) 120 mg tablet (DYE COLORIST DYER 120 mg PO DAILY #90 tabs 06/13/24 11/15/24 Rx Thyroid) L.acidophil,salivari- Bifido cap PO 09/25/24 11/15/24 History bifidum-Strep thermoph 175 mg capsule acetaminophen 500 mg capsule 1,000 mg PO Q4H PRN 09/25/2411/15 History aspirin 81 mg tablet 162 mg PO QAM 09/25/24 11/15/24 Hi story atorvastatin 40 mg tablet 40 mg PO QAM 09/25/24 11/15/24 His tory polyethylene glycol 3350 17 4 g PO QDAY PRN 09/25/24 11/15/24 History gram/dose oral powder (Miralax) sennosides 8.6 mg tablet (Senokot) 8.6 mg PO QDAY PRN 09/25/2412/02 History bethanechol chloride 5 mg tablet 15 mg (3 x 5 mg) PO TID #90 tabs 0 10/16/24 11/15/24 Rx finasteride 5 mg tablet 5 mg PO QAM #90 tabs 10/16/2412/02 Rx metoprolol tartrate 25 mg tablet 12.5 mg (1/2 x 25 mg) PO BID #180 10/16/24 11/15/24 Rx tabs tamsulosin 0.4 mg capsule 0.4 mg PO QHS #90 caps 10/16/24 Rx insulin glargine 100 unit/mL (3 40 unit (0.4 mL) subcut QAM #15 mL 10/29/24 11/15/24 Rx mL) subcutaneous pen (Lantus Solostar U-100 Insulin) pen needle, diabetic 32 gauge x #100 ea 10/29/24 11/15/24 Rx /32 (Saba Pen Needle) insulin lispro 100 unit/mL 1 sliding scale dose subcut TID 11/15/24 Rx subcutaneous pen (Humalog KwikPen #15 mL (U-100) Insulin) Have you fallen in the past year?: Yes Nurse's Note: Patient presents for a 1 M F/U. He is 3 months removed from back fracture. He is wearing his back brace PRN, and says he is healing well. Today he is reportedly moving better than previously. [facility] Medical History Back fracture ( 08/2024) Amputation of ring finger Hernia, umbilical Hernia, inguinal Gout Diabetes Surgical History S/P CABG (coronary artery bypass graft) History of hernia repair H/O thyroidectomy (Unknown) Family History Father Colon cancer Diabetes Hypertension Thyroid disorder Social History adopted: No household members: other details: [place] housing: house number of children: 1 current occupational status: retired pets and animals: Yes (dogs x 2 ) pets and animals: dog(s) history of recent travel: No Smoking Status: Never smoker second hand exposure: No alcohol intake: current alcohol intake frequency: other Previous attempts at quittin details: once or twice a month caffeine: Yes (minimal) what type of physical activity do you participate in: walking frequency: daily duration: 30-45 minutes/day seatbelt use: always do you feel safe at home: Yes HPI HPI Chief Complaint: 1m f/u Details: ARIS ATKINS, is a 69 M who presents to the office today for HE has not been checking his BP at home. He has been to some other appts and numbers were good. PAtient has been feeling well without any current concerns or complaints He is sleeping well at this tie He did see his orthopedic doctor for the back fracture and they are weening him out of this starting this week. (more content not included)... Normal [facility] Laboratory - Hematology and Cell countsOrdered By: Mario [place] on 08-08-2025 HbA1c (Bld) [Mass fraction] 6.8 % High 4.2-6.3 [facility] CNOVon 11-13-2024 CNOV Normal [facility] XR THORACIC 2V AP/LATon - XR THORACIC 2V AP/LAT Normal [facility] Internal Medicine Office Vis iton 10-16-2024 Internal Medicine Office Visit [facility] [address] [place] [address] [place] [address] OFFICE VISIT Date of Service: 10/16/24 MR#: [id number] Acct: [id number] Name: ARIS ATKINS Rep #: [id number] : 1955 Provider: AMADO Serra Age/Sex: 69/M Location: [facility] [facility] Status: Signed Intake Vital Signs 08/09/24 08:07 10/16/24 16:10 Height 5 ft 10 in 5 ft 10 in Weight: 214 lb 8 oz 206 lb BMI 30.7 29.5 BP 132/80 H 114/78 Blood Pressure Location Rt brachial Lt brachial Position Sitting Sitting Respiration 16 16 Pulse 73 70 Pulse Source Monitor Monitor Temp 96.2 F L 97.5 F L Temp Source Temporal Temporal Pulse Oximetry (%) 96 99 Oxygen Delivery Method room air room air Intake Visit Reasons: 1 M FU Bilingual Receptionist Required: No Is patient in pain?: No Allergies No Known Allergies Allergy (Unverified 10/16/24 15:59) Medications ???Medication ???Instructions ???Recorded ???Confirmed ???Type Adren-all PO 1XD 06/23/23 10/16/24 History Held on 09/25/24. Instructions: per [facility] ascorbic acid (vitamin C) 1,000 mg 1 g PO DAILY 06/23/23 10/16/24 H istory capsule Held on 09/25/24. Instructions: per [facility] iodoral 12.5 mg PO 1XD 06/23/23 10/16/24 H istory Held on 09/25/24. Instructions: per [facility] optiprostat PO 1XD 06/23/23 10/16/24 History Held on 09/25/24. Instructions: per [facility] selenium 200 mcg capsule 200 mcg PO DAILY 06/23/23 10/16/24 History cholecalciferol (vitamin D3) 125 125 mcg PO .three times weekly 10/16/24 History mcg (5,000 unit) capsule Held on 09/25/24. Instructions: per [facility] thyroid (pork) 120 mg tablet (DYE COLORIST DYER 120 mg PO DAILY #90 tabs 06/13/24 10/16/24 Rx Thyroid) L.acidophil,salivari- Bifido cap PO 09/25/24 10/16/24 History bifidum-Strep thermoph 175 mg capsule acetaminophen 500 mg capsule 1,000 mg PO Q4H PRN 09/25/2410/16 History aspirin 81 mg tablet 162 mg PO QAM 09/25/24 10/16/24 Hi story atorvastatin 40 mg tablet 40 mg PO QAM 09/25/24 10/16/24 His tory methocarbamol 500 mg tablet 500 mg PO TID PRN muscle spasm 10/16/24 History polyethylene glycol 3350 17 4 g PO QDAY PRN 09/25/24 10/16/24 History gram/dose oral powder (Miralax) sennosides 8.6 mg tablet (Senokot) 8.6 mg PO QDAY PRN 09/25/2401/02 History sulfamethoxazole 800 tab PO 09/25/24 10/16/24 History mg-trimethoprim 160 mg tablet bethanechol chloride 5 mg tablet 15 mg (3 x 5 mg) PO TID #90 tabs 0 10/16/24 10/16/24 Rx finasteride 5 mg tablet 5 mg PO QAM #90 tabs 10/16/24 0701/02 Rx insulin glargine 100 unit/mL (3 40 unit subcut QAM 10/16/24 Histo ry mL) subcutaneous pen (Lantus Solostar U-100 Insulin) insulin lispro 100 unit/mL 1 sliding scale dose subcut TID 10/16/24 Rx subcutaneous pen (Humalog KwikPen #15 mL (U-100) Insulin) metoprolol tartrate 25 mg tablet 12.5 mg (1/2 x 25 mg) PO BID #180 10/16/24 10/16/24 Rx tabs tamsulosin 0.4 mg capsule 0.4 mg PO QHS #90 caps 10/16/24 Rx Have you fallen in the past year?: Yes Nurse's Note: Pt recently saw septic tank installer through [facility] brought summary from them. Pt wanted to discuss meds. He was not on insulin previously and doesn't want to keep poking himself [facility] Medical History Amputation of ring finger Hernia, umbilical Hernia, inguinal Gout Diabetes Surgical History S/P CABG (coronary artery bypass graft) History of hernia repair H/O thyroidectomy (Unknown) Family History Father Colon cancer Diabetes Hypertension Thyroid disorder Social History adopted: No household members: other details: richard housing: house number of children: 1 current occupational status: retired pets and animals: Yes (dogs x 2 ) pets and animals: dog(s) history of recent travel: No Smoking Status: Never smoker second hand exposure: No alcohol intake: current alcohol intake frequency: other Previous attempts at quittin details: once or twice a month caffeine: Yes (minimal) what type of physical activity do you participate in: walking frequency: daily duration: 30-45 minutes/day seatbelt use: always do you feel safe at home: Yes HPI HPI Details: ARIS ATKINS, is a 69 M who presents to the office today for 1 month follow-up after his CABG Patient has followed with his orthopedic physician regarding his back. He states one level of the fracture was healed and the other is healing well. They want him to continue with the brace for another 6 weeks. He states that he continues to not really having any pain i (more content not included)... Normal [facility] CNOV 10-03-2024 CNOV [facility] CNOVon 10-02-2024 CNOV [facility] XR THORACIC 2V AP/LATon 09-09 XR THORACIC 2V AP/LAT Normal [facility] CNPNon 09-30-2024 CNPN [facility] Internal Medicine Office Vis iton 09-25-2024 Internal Medicine Office Visit [facility] [address] [place] [address] [place] [address] OFFICE VISIT Date of Service: 09/25/24 MR#: [id number] Acct: [id number] Name: ARIS ATKINS Rep #: [id number] : 1955 Provider: AMADO Serra Age/Sex: 69/M Location: [facility] [place] [facility] Status: Signed Intake Vital Signs 08/09/24 08:07 09/25/24 13:03 Height 5 ft 10 in Weight: 214 lb 8 oz 212 lb BMI 30.7 BP 132/80 H 122/72 H Blood Pressure Location Rt brachial Lt brachial Position Sitting Sitting Respiration 16 16 Pulse 73 74 Pulse Source Monitor Monitor Temp 96.2 F L 97 F L Temp Source Temporal Temporal Pulse Oximetry (%) 96 97 Oxygen Delivery Method room air room air Intake Visit Reasons: FOLLOW UP FROM [facility] Chief Complaint: 3m f/u Bilingual Receptionist Required: No Accompanied by: Is patient in pain?: No Allergies No Known Allergies Allergy (Unverified 08/09/24 07:48) Medications ???Medication ???Instructions ???Recorded ???Confirmed ???Type Adren-all PO 1XD 06/23/23 09/25/24 History Held on 09/25/24. Instructions: per [facility] ascorbic acid (vitamin C) 1,000 mg 1 g PO DAILY 06/23/23 09/25/24 H istory capsule Held on 09/25/24. Instructions: per [facility] iodoral 12.5 mg PO 1XD 06/23/23 09/25/24 H istory Held on 09/25/24. Instructions: per [facility] optiprostat PO 1XD 06/23/23 09/25/24 History Held on 09/25/24. Instructions: per [facility] selenium 200 mcg capsule 200 mcg PO DAILY 06/23/23 09/25/24 History test boost max PO 1XD 06/23/23 09/25/24 History Held on 09/25/24. Instructions: per [facility] cholecalciferol (vitamin D3) 125 125 mcg PO .three times weekly 09/25/24 History mcg (5,000 unit) capsule Held on 09/25/24. Instructions: per [facility] thyroid (pork) 120 mg tablet (DYE COLORIST DYER 120 mg PO DAILY #90 tabs 06/13/24 09/25/24 Rx Thyroid) L.acidophil,salivari- Bifido cap PO 09/25/24 09/25/24 History bifidum-Strep thermoph 175 mg capsule acetaminophen 500 mg capsule 1,000 mg PO Q4H PRN 09/25/2409/25 History aspirin 81 mg tablet 162 mg PO QAM 09/25/24 09/25/24 Hi story atorvastatin 20 mg tablet 40 mg PO QDAY 09/25/24 History atorvastatin 40 mg tablet 40 mg PO QAM 09/25/24 09/25/24 His tory bethanechol chloride 5 mg tablet 15 mg PO TID 09/25/24 09/25/24 His tory finasteride 5 mg tablet 5 mg PO QAM 09/25/24 09/25/24 Hist ory folic acid 1 mg tablet 1 mg PO QDAY 09/25/24 09/25/24 His tory furosemide 40 mg tablet 40 mg PO QAM 09/25/24 09/25/24 His tory insulin glargine 100 unit/mL (3 32 unit subcut QAM 09/25/24 History mL) subcutaneous pen (Lantus Solostar U-100 Insulin) insulin lispro 100 unit/mL subcut 09/25/24 09/25/24 History subcutaneous pen (Humalog KwikPen (U-100) Insulin) methocarbamol 500 mg tablet 500 mg PO TID PRN muscle spasm 09/25/24 History metoprolol tartrate 25 mg tablet 12.5 mg PO BID 09/25/24 09/25/24 H istory pantoprazole 40 mg tablet,delayed 40 mg PO QAM 09/25/24 09/25/24 Hi story release polyethylene glycol 3350 17 4 g PO QDAY PRN 09/25/24 09/25/24 History gram/dose oral powder (Miralax) sennosides 8.6 mg tablet (Senokot) 8.6 mg PO QDAY PRN 09/25/2409/08 History sulfamethoxazole 800 tab PO 09/25/24 09/25/24 History mg-trimethoprim 160 mg tablet tamsulosin 0.4 mg capsule 0.4 mg PO QHS 09/25/24 09/25/24 Hi story Have you fallen in the past year?: Yes (syncope due to MO 08/15/24) Nurse's Note: Pt went to [facility] on 08/15/24, for a MO, and back fracture, was in need of CABG, was dc'd from [facility] on 09/04/24 Transferred to [facility] on 09/05/24-09/20/24 for rehab. Has an appointment w/ [facility] SERVICE DEVELOPER provider on 09/30 and cardiology Karoline celis on 10/04/24 and all through [facility]. Pt states he is doing, but appears highly aggravated. Pt does not have discharge ppwk. [facility] release signed, [facility] Medical History (Updated 09/26/24 @ 11:59 by Mario FISCHER, PA) Amputation of ring finger Hernia, umbilical Hernia, inguinal Gout Diabetes Surgical History (Updated 09/25/24 @ 12:52 by Eden Ibrahim MA) S/P CABG (coronary artery bypass graft) History of hernia repair H/O thyroidectomy (Unknown) Family History Father Colon cancer Diabetes Hypertension Thyroid disorder Social History adopted: No household members: other details: richard housing: house number of children: 1 current occupational status: retired pets and animals: Yes (dogs x 2 ) pets and animals: dog(s) history of recent travel: No Smoking Status: Never smoker second hand exposure: No alcohol intake: current alcohol intake frequency: other Previous attempts at quittin detai (more content not included)... Normal [facility] 09-23-2024 [facility] 09-20-2024 [facility] Basic metabolic 2000 panelon 09-19-2024 Anion gap [Moles/Vol] 11 mmol/L 8 - 15 mmol/L [facility] Calcium [Mass/Vol] 8.6 mg/dL 8.5 - 10. 2 mg/dL [facility] Chloride [Moles/Vol] 103 mmol/L 98 - 10 7 mmol/L [facility] CO2 [Moles/Vol] 22 mmol/L 22 - 30 mmol/L [facility] Creatinine [Mass/Vol] 1.08 mg/dL 0.73 - 1.22 mg/dL [facility] GFR/1.73 sq M.predicted among non-blacks MDRD (S/P/Bld) [Vol rate/Area] 74 mL/min/{1.73_m2} - PINF [facility] Comment on above: Estimated Glomerular Filtration Rate (eGFR) is calculated using the 2020 CKD-EPI creatinine equation. This equation utilizes serum creatinine, sex, and age as parameters. The creatinine assay has traceable calibration to isotope dilution-mass spectrometry. Refer to KDIGO guidelines for clinical interpretation. In patients with unstable renal function, e.g. those with acute kidney injury, the eGFR may not accurately reflect actual GFR. Glucose [Mass/Vol] 224 mg/dL High 74 - 99 mg/dL [facility] Comment on above: The [place] Diab[employer] s Association (ADA) provides guidance for cutoff values for fasting glucose and random glucose. The ADA defines fasting as no caloric intake for at least 8 hours. Fasting plasma glucose results between 100 to 125 mg/dL indicate increased risk for diabetes (prediabetes). Fasting plasma glucose results greater than or equal to 126 mg/dL meet the criteria for diagnosis of diabetes. In the absence of unequivocal hyperglycemia, results should be confirmed by repeat testing. In a patient with classic symptoms of hyperglycemia or hyperglycemic crisis, random plasma glucose results greater than or equal to 200 mg/dL meet the criteria for diagnosis of diabetes. Reference: Standards of Medical Care in Diabetes 2016, [place] Diabetes Association. Diabetes Care. 2016.39(Suppl 1). Interpretation and review of laboratory results Abnormal [facility] Potassium [Moles/Vol] 4 mmol/L 3.7 - 5.1 mmol/L [facility] Sodium [Moles/Vol] 136 mmol/L 136 - 144 mmol/L [facility] Urea nitrogen [Mass/Vol] 22 mg/dL 9 - 24 mg/d L [facility] Anion gap [Moles/Vol] 11 mmol/L Normal 8-15 [facility] Comment on above: Order Comment: Speci men Type: BLOOD SPECIMEN Ordering Facility: [facility] Address: [address] [place] [address] Performed By: #### 2 4321-2 #### [facility] CLIA [id number] [address] [place] [address] [place] Calcium [Mass/Vol] 8.6 mg/dL Normal 8.5-10.2 [facility] Comment on above: Order Comment: Speci men Type: BLOOD SPECIMEN Ordering Facility: [facility] Address: [address] [place] [address] Performed By: #### 2 4321-2 #### [facility] CLIA [id number] [address] [place] [address] [place] Chloride [Moles/Vol] 103 mmol/L Normal 98-107 [facility] Comment on above: Order Comment: Speci men Type: BLOOD SPECIMEN Ordering Facility: [facility] Address: [address] [place] [address] Performed By: #### 2 4321-2 #### [facility] CLIA [id number] [address] [place] [address] [place] CO2 [Moles/Vol] 22 mmol/L Normal 22-30 [facility] Comment on above: Order Comment: Speci men Type: BLOOD SPECIMEN Ordering Facility: [facility] Address: [address] [place] [address] Performed By: #### 2 4321-2 #### [facility] CLIA [id number] [address] [place] [address] [place] Creatinine [Mass/Vol] 1.08 mg/dL Normal 0.73-1.22 [facility] Comment on above: Order Comment: Speci men Type: BLOOD SPECIMEN Ordering Facility: [facility] Address: [address] [place] [address] Performed By: #### 2 4321-2 #### [facility] CLIA [id number] [address] [place] [address] [facility] [place] Creatinine and Glomerular filtration rate.predicted panel (S/P/Bld) 74 mL/min/1.73m??? Normal >=60 [facility] Comment on above: Order Comment: Speci men Type: BLOOD SPECIMEN Ordering Facility: [facility] Address: [address] [place] [address] Result Comment: Apple mated Glomerular Filtration Rate (eGFR) is calculated using the 2020 CKD-EPI creatinine equation. This equation utilizes serum creatinine, sex, and age as parameters. The creatinine assay has traceable calibration to isotope dilution-mass spectrometry. Refer to KDIGO guidelines for clinical interpretation. In patients with unstable renal function, e.g. those with acute kidney injury, the eGFR may not accurately reflect actual GFR. Performed By: #### 2 4321-2 #### [facility] CLIA [id number] [address] [place] [address] [place] Glucose [Mass/Vol] 224 mg/dL High 74-99 [facility] Comment on above: Order Comment: Yojana riggins Type: BLOOD SPECIMEN Ordering Facility: [facility] Address: [address] [place] [address] Result Comment: The [place] Diabetes Association (ADA) provides guidance for cutoff values for fasting glucose and random glucose. The ADA defines fasting as no caloric intake for at least 8 hours. Fasting plasma glucose results between 100 to 125 mg/dL indicate increased risk for diabetes (prediabetes). Fasting plasma glucose results greater than or equal to 126 mg/dL meet the criteria for diagnosis of diabetes. In the absence of unequivocal hyperglycemia, results should be confirmed by repeat testing. In a patient with classic symptoms of hyperglycemia or hyperglycemic crisis, random plasma glucose results greater than or equal to 200 mg/dL meet the criteria for diagnosis of diabetes. Reference: Standards of Medical Care in Diabetes 2016, [place] Diabetes Association. Diabetes Care. 2016.39(Suppl 1). Performed By: #### 2 4321-2 #### [facility] CLIA [id number] [address] [place] [address] [place] Potassium [Moles/Vol] 4.0 mmol/L Normal 3.7-5.1 [facility] Comment on above: Order Comment: Yojana riggins Type: BLOOD SPECIMEN Ordering Facility: [facility] Address: [address] [place] [address] Performed By: #### 2 4321-2 #### [facility] CLIA [id number] [address] [place] [address] Sodium [Moles/Vol] 136 mmol/L Normal 136-144 [facility] Comment on above: Order Comment: Speci men Type: BLOOD SPECIMEN Ordering Facility: [facility] Address: [address] [place] [address] Performed By: #### 2 4321-2 #### [facility] CLIA [id number] [address] Urea nitrogen [Mass/Vol] 22 mg/dL Normal 9-24 [facility] Comment on above: Order Comment: Speci men Type: BLOOD SPECIMEN Ordering Facility: [facility] Address: [address] [place] [address] Performed By: #### 2 4321-2 #### [facility] CLIA [id number] [address] STATES OF [facility] CBC panel Auto (Bld)on 09-19 Erythrocyte distribution width (RBC) [Ratio] 18.4 % High 11.5 - 15.0 % [facility] Hematocrit (Bld) [Volume fraction] 27.3 % Low 39.0 - 51.0 % [facility] Hemoglobin (Bld) [Mass/Vol] 8.5 g/dL Low 13.0 - 17.0 g/dL [facility] Interpretation and review of laboratory results Abnormal [facility] MCH (RBC) [Entitic mass] 30.1 pg 26. 0 - 34.0 pg [facility] MCHC (RBC) [Mass/Vol] 31.1 g/dL 30.5 - 36.0 g/dL [facility] MCV (RBC) [Entitic vol] 96.8 fL 80.0 - 100.0 fL [facility] Nucleated RBC (Bld) [#/Vol] NINF [facility] Platelet mean volume (Bld) [Entitic vol] 8.6 fL Low 9.0 - 12.7 fL [facility] Platelets (Bld) [#/Vol] 222 10*3/uL [facility] RBC (Bld) [#/Vol] 2.82 10*6/uL Low 4.20 - 6.0 0 m/uL [facility] WBC (Bld) [#/Vol] 5.17 10*3/uL [facility] Erythrocyte distribution width (RBC) [Ratio] 18.4 % High 11.5-15.0 [facility] Comment on above: Order Comment: Speci men Type: BLOOD SPECIMEN Ordering Facility: [facility] Address: [address] [place] [address] Performed By: #### 5 8410-2 #### [facility] CLIA [id number] [address] [place] Hematocrit (Bld) [Volume fraction] 27.3 % Low 39.0-51.0 [facility] Comment on above: Order Comment: Speci men Type: BLOOD SPECIMEN Ordering Facility: [facility] Address: [address] [place] [address] Performed By: #### 5 8410-2 #### [facility] CLIA [id number] [address] [place] Hemoglobin (Bld) [Mass/Vol] 8.5 g/dL Low 13.0-17.0 [facility] Comment on above: Order Comment: Speci men Type: BLOOD SPECIMEN Ordering Facility: [facility] Address: [address] [place] [address] Performed By: #### 5 8410-2 #### [facility] CLIA [id number] [address] [place] MCH (RBC) [Entitic mass] 30.1 pg Normal 26.0-34.0 [facility] Comment on above: Order Comment: Speci men Type: BLOOD SPECIMEN Ordering Facility: [facility] Address: [address] [place] [address] Performed By: #### 5 8410-2 #### [facility] CLIA [id number] [address] [place] MCHC (RBC) [Mass/Vol] 31.1 g/dL Normal 30.5-36.0 [facility] Comment on above: Order Comment: Speci men Type: BLOOD SPECIMEN Ordering Facility: [facility] Address: [address] [place] [address] Performed By: #### 5 8410-2 #### [facility] CLIA [id number] [address] [place] [address] [place] MCV (RBC) [Entitic vol] 96.8 fL Normal 80.0-100.0 [facility] Comment on above: Order Comment: Speci men Type: BLOOD SPECIMEN Ordering Facility: [facility] Address: [address] [place] [address] Performed By: #### 5 8410-2 #### [facility] CLIA [id number] [address] [place] [address] [place] Nucleated RBC (Bld) [#/Vol] 10*3/uL Normal <0.01 [facility] Comment on above: Order Comment: Speci men Type: BLOOD SPECIMEN Ordering Facility: [facility] Address: [address] [place] [address] Performed By: #### 5 8410-2 #### [facility] CLIA [id number] [address] [place] [address] [place] Platelet mean volume (Bld) [Entitic vol] 8.6 fL Low 9.0-12.7 [facility] Comment on above: Order Comment: Speci men Type: BLOOD SPECIMEN Ordering Facility: [facility] Address: [address] [place] [address] Performed By: #### 5 8410-2 #### [facility] CLIA [id number] [address] [place] [address] [place] Platelets (Bld) [#/Vol] 222 10*3/uL Normal 150-400 [facility] Comment on above: Order Comment: Speci men Type: BLOOD SPECIMEN Ordering Facility: [facility] Address: [address] [place] [address] Performed By: #### 5 8410-2 #### [facility] CLIA [id number] [address] [place] [address] [place] RBC (Bld) [#/Vol] 2.82 10*6/uL Low 4.20-6.00 [facility] Comment on above: Order Comment: Speci men Type: BLOOD SPECIMEN Ordering Facility: [facility] Address: [address] [place] [address] Performed By: #### 5 8410-2 #### [facility] CLIA [id number] [address] [place] [address] [place] WBC (Bld) [#/Vol] 5.17 10*3/uL Normal 3.70-11.00 [facility] Comment on above: Order Comment: Speci men Type: BLOOD SPECIMEN Ordering Facility: [facility] Address: [address] [place] [address] Performed By: #### 5 8410-2 #### [facility] CLIA [id number] [address] [place] [id number] [place] Basic metabolic 2000 panelon 09-18-2024 Anion gap [Moles/Vol] 9 mmol/L 8 - 15 mmol/L [facility] Calcium [Mass/Vol] 8.7 mg/dL 8.5 - 10. 2 mg/dL [facility] Chloride [Moles/Vol] 103 mmol/L 98 - 10 7 mmol/L [facility] CO2 [Moles/Vol] 23 mmol/L 22 - 30 mmol/L [facility] Creatinine [Mass/Vol] 1.35 mg/dL High 0.73 - 1.22 mg/dL [facility] GFR/1.73 sq M.predicted among non-blacks MDRD (S/P/Bld) [Vol rate/Area] 57 mL/min/{1.73_m2} Low - PINF [facility] Comment on above: Estimated Glomerular Filtration Rate (eGFR) is calculated using the 2020 CKD-EPI creatinine equation. This equation utilizes serum creatinine, sex, and age as parameters. The creatinine assay has traceable calibration to isotope dilution-mass spectrometry. Refer to KDIGO guidelines for clinical interpretation. In patients with unstable renal function, e.g. those with acute kidney injury, the eGFR may not accurately reflect actual GFR. Glucose [Mass/Vol] 186 mg/dL High 74 - 99 mg/dL [facility] Comment on above: The [place] Diab[employer] Association (ADA) provides guidance for cutoff values for fasting glucose and random glucose. The ADA defines fasting as no caloric intake for at least 8 hours. Fasting plasma glucose results between 100 to 125 mg/dL indicate increased risk for diabetes (prediabetes). Fasting plasma glucose results greater than or equal to 126 mg/dL meet the criteria for diagnosis of diabetes. In the absence of unequivocal hyperglycemia, results should be confirmed by repeat testing. In a patient with classic symptoms of hyperglycemia or hyperglycemic crisis, random plasma glucose results greater than or equal to 200 mg/dL meet the criteria for diagnosis of diabetes. Reference: Standards of Medical Care in Diabetes 2016, [place] [employer]. Diabetes Care. 2016.39(Suppl 1). Interpretation and review of laboratory results Abnormal [facility] Potassium [Moles/Vol] 4.5 mmol/L 3.7 - 5.1 mmol/L [facility] Sodium [Moles/Vol] 135 mmol/L Low 136 - 144 mmol/L [facility] Urea nitrogen [Mass/Vol] 21 mg/dL 9 - 24 mg/d L [facility] Anion gap [Moles/Vol] 9 mmol/L Normal 8-15 [facility] Comment on above: Order Comment: Yojana riggins Type: BLOOD SPECIMEN Ordering Facility: [facility] Address: [address] [place] [address] Performed By: #### 2 4321-2 #### [facility] CLIA [id number] [address] [place] [address] [place] Calcium [Mass/Vol] 8.7 mg/dL Normal 8.5-10.2 [facility] Comment on above: Order Comment: Yojana riggins Type: BLOOD SPECIMEN Ordering Facility: [facility] Address: [address] [place] [address] Performed By: #### 2 4321-2 #### [facility] CLIA [id number] [address] [place] [address] [place] Chloride [Moles/Vol] 103 mmol/L Normal 98-107 [facility] Comment on above: Order Comment: Yojana riggins Type: BLOOD SPECIMEN Ordering Facility: [facility] Address: [address] [place] [address] Performed By: #### 2 4321-2 #### [facility] CLIA [id number] [address] [place] [address] [place] CO2 [Moles/Vol] 23 mmol/L Normal 22-30 [facility] Comment on above: Order Comment: Yojana riggins Type: BLOOD SPECIMEN Ordering Facility: [facility] Address: [address] [place] [address] Performed By: #### 2 4321-2 #### [facility] CLIA [id number] [address] [place] Creatinine [Mass/Vol] 1.35 mg/dL High 0.73-1.22 [facility] Comment on above: Order Comment: Speci men Type: BLOOD SPECIMEN Ordering Facility: [facility] Address: [address] [place] [address] Performed By: #### 2 4321-2 #### [facility] CLIA [id number] [address] Creatinine and Glomerular filtration rate.predicted panel (S/P/Bld) 57 mL/min/1.73m??? Low >=60 [facility] Comment on above: Order Comment: Yojana men Type: BLOOD SPECIMEN Ordering Facility: [facility] Address: [address] [place] [address] Result Comment: Apple mated Glomerular Filtration Rate (eGFR) is calculated using the 2020 CKD-EPI creatinine equation. This equation utilizes serum creatinine, sex, and age as parameters. The creatinine assay has traceable calibration to isotope dilution-mass spectrometry. Refer to KDIGO guidelines for clinical interpretation. In patients with unstable renal function, e.g. those with acute kidney injury, the eGFR may not accurately reflect actual GFR. Performed By: #### 2 4321-2 #### [facility] CLIA [id number] [address] [place] Glucose [Mass/Vol] 186 mg/dL High 74-99 [facility] Comment on above: Order Comment: Yojana gilson Type: BLOOD SPECIMEN Ordering Facility: [facility] Address: [address] [place] [address] Result Comment: The [place] Diabetes Association (ADA) provides guidance for cutoff values for fasting glucose and random glucose. The ADA defines fasting as no caloric intake for at least 8 hours. Fasting plasma glucose results between 100 to 125 mg/dL indicate increased risk for diabetes (prediabetes). Fasting plasma glucose results greater than or equal to 126 mg/dL meet the criteria for diagnosis of diabetes. In the absence of unequivocal hyperglycemia, results should be confirmed by repeat testing. In a patient with classic symptoms of hyperglycemia or hyperglycemic crisis, random plasma glucose results greater than or equal to 200 mg/dL meet the criteria for diagnosis of diabetes. Reference: Standards of Medical Care in Diabetes 2016, [place] [employer]. Diabetes Care. 2016.39(Suppl 1). Performed By: #### 2 4321-2 #### [facility] CLIA [id number] [address] [place] [address] [place] Potassium [Moles/Vol] 4.5 mmol/L Normal 3.7-5.1 [facility] Comment on above: Order Comment: Speci men Type: BLOOD SPECIMEN Ordering Facility: [facility] Address: [address] [place] [address] Performed By: #### 2 4321-2 #### [facility] CLIA [id number] [address] [place] [address] [place] Sodium [Moles/Vol] 135 mmol/L Low 136-144 [facility] Comment on above: Order Comment: Yojana riggins Type: BLOOD SPECIMEN Ordering Facility: [facility] Address: [address] [place] [address] Performed By: #### 2 4321-2 #### [facility] CLIA [id number] [address] [place] [facility] Urea nitrogen [Mass/Vol] 21 mg/dL Normal 9-24 [facility] Comment on above: Order Comment: Simrani men Type: BLOOD SPECIMEN Ordering Facility: [facility] Address: [address] [place] [address] Performed By: #### 2 4321-2 #### [facility] CLIA [id number] [address] [place] [address] [place] Bacteria Ur Culton 5 Bacteria identified Cx Nom (U) ORGANISM ID: 1 >=100,000 CFU/ml Enterobacter cloacae complex Morphology 1 ORGANISM ID: 2 50,000-<100,000 CFU/ml Enterobacter cloacae complex Morphology 2 ORGANISM ID: 1 (ENTEROBACTER CLOACAE COMPLEX) ------ ANTIBIOTIC INTERPRETATION ANGY STATUS REFERENCE RANGE ------ Ampicillin R F Cefepime S <=1 F Susceptible <=2 , Susceptible-Dose Dependent >2 , Resistant >=16 Ertapenem S <=0.5 F Susceptible <=0.5 , Intermediate >.5 , Resistant >1 Meropenem S <=0.25 F Susceptible <=1 , Intermediate >1 , Resistant >2 Ampicillin/Sulbact R 8 F Piperacillin/Tazobac S 8 F Susceptible <16 , Susceptible-Dose Dependent >=16 , Resistant >=32 Gentamicin S <=1 F Susceptible <=2 , Intermediate >2 , Resistant >=8 Tobramycin S <=1 F Susceptible <4 , Intermediate >=4 , Resistant >=8 Trimeth sulfameth S <=20 F Susceptible <=40 , Resistant >40 Ciprofloxacin S <=0.25 F Susceptible <0.5 , Intermediate >=.5 , Resistant >=1 Nitrofurantoin S 32 F Susceptible <=32 , Intermediate >32 , Resistant >64 ORGANISM ID: 2 (ENTEROBACTER CLOACAE COMPLEX) ------ ANTIBIOTIC INTERPRETATION ANGY STATUS REFERENCE RANGE ------ Ampicillin R F Cefepime S <=1 F Susceptible <=2 , Susceptible-Dose Dependent >2 , Resistant >=16 Ertapenem S <=0.5 F Susceptible <=0.5 , Intermediate >.5 , Resistant >1 Meropenem S <=0.25 F Susceptible <=1 , Intermediate >1 , Resistant >2 Ampicillin/Sulbact R 4 F Piperacillin/Tazobac S <=4 F Susceptible <16 , Susceptible-Dose Dependent >=16 , Resistant >=32 Gentamicin S <=1 F Susceptible <=2 , Intermediate >2 , Resistant >=8 Tobramycin S <=1 F Susceptible <4 , Intermediate >=4 , Resistant >=8 Trimeth sulfameth S <=20 F Susceptible <=40 , Resistant >40 Ciprofloxacin S <=0.25 F Susceptible <0.5 , Intermediate >=.5 , Resistant >=1 Nitrofurantoin S 32 F Susceptible <=32 , Intermediate >32 , Resistant >64 Abnormal [facility] Comment on above: Performed By: #### 6 30-4 #### [facility] CLIA [id number] [address] [place] [address] [place] Urinalysis complete panel (U )on 09-17-2024 Bacteria LM.HPF (Urine sed) [#/Area] Moderate Abnormal None Seen [facility] Comment on above: Order Comment: Speci men Type: URINE SPECIMEN Ordering Facility: [facility] Address: [address] [place] [address] Performed By: #### 2 4356-8 #### [facility] CLIA [id number] [address] [place] [address] [place] Bilirubin Ql (U) Negative Normal Negative [facility] Comment on above: Order Comment: Speci men Type: URINE SPECIMEN Ordering Facility: [facility] Address: [address] [place] [address] Performed By: #### 2 4356-8 #### [facility] CLIA [id number] [address] Clarity (Unsp spec) Turbid Abnormal Clear [facility] Comment on above: Order Comment: Speci men Type: URINE SPECIMEN Ordering Facility: [facility] Address: [address] [place] [address] Performed By: #### 2 4356-8 #### [facility] CLIA [id number] [address] [place] Color (U) Yellow Normal Yellow [facility] Comment on above: Order Comment: Speci men Type: URINE SPECIMEN Ordering Facility: [facility] Address: [address] [place] [address] Performed By: #### 2 4356-8 #### [facility] CLIA [id number] [address] Glucose Test strip (U) [Mass/Vol] Negative Normal Negative [facility] Comment on above: Order Comment: Speci men Type: URINE SPECIMEN Ordering Facility: [facility] Address: [address] [place] [address] Performed By: #### 2 4356-8 #### [facility] CLIA [id number] [address] Hemoglobin Ql (U) 2+ Abnormal Negative [facility] Comment on above: Order Comment: Speci men Type: URINE SPECIMEN Ordering Facility: [facility] Address: [address] [place] [address] Performed By: #### 2 4356-8 #### [facility] CLIA [id number] [address] Ketones Ql (U) Negative Normal Negative [facility] Comment on above: Order Comment: Speci men Type: URINE SPECIMEN Ordering Facility: [facility] Address: [address] [place] [address] Performed By: #### 2 4356-8 #### [facility] CLIA [id number] [address] Leukocyte esterase Test strip Ql (U) 3+ Abnormal Negative [facility] Comment on above: Order Comment: Speci men Type: URINE SPECIMEN Ordering Facility: [facility] Address: [address] [place] [address] Performed By: #### 2 4356-8 #### [facility] CLIA [id number] [address] [place] [address] [place] Nitrite Ql (U) Negative Normal Negative [facility] Comment on above: Order Comment: Speci men Type: URINE SPECIMEN Ordering Facility: [facility] Address: [address] [place] [address] Performed By: #### 2 4356-8 #### [facility] CLIA [id number] [address] [place] pH (U) 6.0 [pH] Normal 5.0-8.0 [facility] Comment on above: Order Comment: Speci men Type: URINE SPECIMEN Ordering Facility: [facility] Address: [address] [place] [address] Performed By: #### 2 6-8 #### [facility] CLIA [id number] [address] Protein (U) [Mass/Vol] 1+ Abnormal Negative [facility] Comment on above: Order Comment: Speci men Type: URINE SPECIMEN Ordering Facility: [facility] Address: [address] [place] [address] Performed By: #### 2 6-8 #### [facility] CLIA [id number] [address] [place] RBC LM.HPF (Urine sed) [#/Area] 3-5 /HPF Abnormal 0-3 /HPF [facility] Comment on above: Order Comment: Speci men Type: URINE SPECIMEN Ordering Facility: [facility] Address: [address] [place] [address] Performed By: #### 2 4356-8 #### [facility] CLIA [id number] [address] Specific gravity (U) [Rel density] 1.020 Normal 1.005-1.030 [facility] Comment on above: Order Comment: Speci men Type: URINE SPECIMEN Ordering Facility: [facility] Address: [address] [place] [address] Performed By: #### 2 4356-8 #### [facility] CLIA [id number] [address] Urobilinogen Ql (U) 0.2 EU/dL Normal 0.2-1.0 EU/dL [facility] Comment on above: Order Comment: Speci men Type: URINE SPECIMEN Ordering Facility: [facility] Address: [address] [place] [address] Performed By: #### 2 4356-8 #### [facility] CLIA [id number] [address] WBC LM.HPF (Urine sed) [#/Area] /[HPF] Abnormal 0-5 /HPF [facility] Comment on above: Order Comment: Speci men Type: URINE SPECIMEN Ordering Facility: [facility] Address: [address] [place] [address] Performed By: #### 2 4356-8 #### [facility] CLIA [id number] [address] [place] Basic metabolic 2000 panelon 09-16-2024 Anion gap [Moles/Vol] 12 mmol/L 8 - 15 mmol/L [facility] Calcium [Mass/Vol] 8.7 mg/dL 8.5 - 10. 2 mg/dL [facility] Chloride [Moles/Vol] 102 mmol/L 98 - 10 7 mmol/L [facility] CO2 [Moles/Vol] 23 mmol/L 22 - 30 mmol/L [facility] Creatinine [Mass/Vol] 1.25 mg/dL High 0.73 - 1.22 mg/dL [facility] GFR/1.73 sq M.predicted among non-blacks MDRD (S/P/Bld) [Vol rate/Area] 62 mL/min/{1.73_m2} - PINF [facility] Comment on above: Estimated Glomerular Filtration Rate (eGFR) is calculated using the 2020 CKD-EPI creatinine equation. This equation utilizes serum creatinine, sex, and age as parameters. The creatinine assay has traceable calibration to isotope dilution-mass spectrometry. Refer to KDIGO guidelines for clinical interpretation. In patients with unstable renal function, e.g. those with acute kidney injury, the eGFR may not accurately reflect actual GFR. Glucose [Mass/Vol] 122 mg/dL High 74 - 99 mg/dL [facility] Comment on above: The [place] Diab[employer] Association (ADA) provides guidance for cutoff values for fasting glucose and random glucose. The ADA defines fasting as no caloric intake for at least 8 hours. Fasting plasma glucose results between 100 to 125 mg/dL indicate increased risk for diabetes (prediabetes). Fasting plasma glucose results greater than or equal to 126 mg/dL meet the criteria for diagnosis of diabetes. In the absence of unequivocal hyperglycemia, results should be confirmed by repeat testing. In a patient with classic symptoms of hyperglycemia or hyperglycemic crisis, random plasma glucose results greater than or equal to 200 mg/dL meet the criteria for diagnosis of diabetes. Reference: Standards of Medical Care in Diabetes 2016, [place] [employer]. Diabetes Care. 2016.39(Suppl 1). Potassium [Moles/Vol] 4.2 mmol/L 3.7 - 5.1 mmol/L [facility] Sodium [Moles/Vol] 137 mmol/L 136 - 144 mmol/L [facility] Urea nitrogen [Mass/Vol] 23 mg/dL 9 - 24 mg/d L [facility] Anion gap [Moles/Vol] 12 mmol/L Normal 8-15 [facility] Comment on above: Order Comment: Yojana riggins Type: BLOOD SPECIMEN Ordering Facility: [facility] Address: [address] [place] [address] Performed By: #### 2 4321-2 #### [facility] CLIA [id number] [address] [place] [address] [place] Calcium [Mass/Vol] 8.7 mg/dL Normal 8.5-10.2 [facility] Comment on above: Order Comment: Yojana riggins Type: BLOOD SPECIMEN Ordering Facility: [facility] Address: [address] [place] [address] Performed By: #### 2 4321-2 #### [facility] CLIA [id number] [address] [place] [address] [place] Chloride [Moles/Vol] 102 mmol/L Normal 98-107 [facility] Comment on above: Order Comment: Speci men Type: BLOOD SPECIMEN Ordering Facility: [facility] Address: [address] [place] [address] Performed By: #### 2 4321-2 #### [facility] CLIA [id number] [address] [place] [address] [place] CO2 [Moles/Vol] 23 mmol/L Normal 22-30 [facility] Comment on above: Order Comment: Speci men Type: BLOOD SPECIMEN Ordering Facility: [facility] Address: [address] [place] [address] Performed By: #### 2 4321-2 #### [facility] CLIA [id number] [address] [place] [address] [place] Creatinine [Mass/Vol] 1.25 mg/dL High 0.73-1.22 [facility] Comment on above: Order Comment: Speci men Type: BLOOD SPECIMEN Ordering Facility: [facility] Address: [address] [place] [address] Performed By: #### 2 4321-2 #### [facility] CLIA [id number] [address] Creatinine and Glomerular filtration rate.predicted panel (S/P/Bld) 62 mL/min/1.73m??? Normal >=60 [facility] Comment on above: Order Comment: Speci men Type: BLOOD SPECIMEN Ordering Facility: [facility] Address: [address] [place] [address] Result Comment: Apple mated Glomerular Filtration Rate (eGFR) is calculated using the 2020 CKD-EPI creatinine equation. This equation utilizes serum creatinine, sex, and age as parameters. The creatinine assay has traceable calibration to isotope dilution-mass spectrometry. Refer to KDIGO guidelines for clinical interpretation. In patients with unstable renal function, e.g. those with acute kidney injury, the eGFR may not accurately reflect actual GFR. Performed By: #### 2 4321-2 #### [facility] CLIA [id number] [address] [place] [address] [place] Glucose [Mass/Vol] 122 mg/dL High 74-99 [facility] Comment on above: Order Comment: Yojana riggins Type: BLOOD SPECIMEN Ordering Facility: [facility] Address: [address] [place] [address] Result Comment: The [place] Diabetes Association (ADA) provides guidance for cutoff values for fasting glucose and random glucose. The ADA defines fasting as no caloric intake for at least 8 hours. Fasting plasma glucose results between 100 to 125 mg/dL indicate increased risk for diabetes (prediabetes). Fasting plasma glucose results greater than or equal to 126 mg/dL meet the criteria for diagnosis of diabetes. In the absence of unequivocal hyperglycemia, results should be confirmed by repeat testing. In a patient with classic symptoms of hyperglycemia or hyperglycemic crisis, random plasma glucose results greater than or equal to 200 mg/dL meet the criteria for diagnosis of diabetes. Reference: Standards of Medical Care in Diabetes 2016, [place] [employer]. Diabetes Care. 2016.39(Suppl 1). Performed By: #### 2 4321-2 #### [facility] CLIA [id number] [address] [place] [address] [place] Potassium [Moles/Vol] 4.2 mmol/L Normal 3.7-5.1 [facility] Comment on above: Order Comment: Yojana riggins Type: BLOOD SPECIMEN Ordering Facility: [facility] Address: [address] [place] [address] Performed By: #### 2 4321-2 #### [facility] CLIA [id number] [address] [place] [address] [place] Sodium [Moles/Vol] 137 mmol/L Normal 136-144 [facility] Comment on above: Order Comment: Simrani gilson Type: BLOOD SPECIMEN Ordering Facility: [facility] Address: [address] [place] [address] Performed By: #### 2 4321-2 #### [facility] CLIA [id number] [address] [place] [address] [place] Urea nitrogen [Mass/Vol] 23 mg/dL Normal 9-24 [facility] Comment on above: Order Comment: Yojana riggins Type: BLOOD SPECIMEN [facility] Address: [address] [place] [address] Performed By: #### 2 4321-2 #### [facility] CLIA [id number] [address] [place] [address] [place] CBC panel Auto (Bld)on 09-16 Erythrocyte distribution width (RBC) [Ratio] 18.9 % High 11.5 - 15.0 % [facility] Hematocrit (Bld) [Volume fraction] 27 % Low 39.0 - 51.0 % [facility] Hemoglobin (Bld) [Mass/Vol] 8.5 g/dL Low 13.0 - 17.0 g/dL [facility] Interpretation and review of laboratory results Abnormal [facility] MCH (RBC) [Entitic mass] 30.8 pg 26. 0 - 34.0 pg [facility] MCHC (RBC) [Mass/Vol] 31.5 g/dL 30.5 - 36.0 g/dL [facility] MCV (RBC) [Entitic vol] 97.8 fL 80.0 - 100.0 fL [facility] Nucleated RBC (Bld) [#/Vol] NINF [facility] Platelet mean volume (Bld) [Entitic vol] 8.7 fL Low 9.0 - 12.7 fL [facility] Platelets (Bld) [#/Vol] 245 10*3/uL [facility] RBC (Bld) [#/Vol] 2.76 10*6/uL Low 4.20 - 6.0 0 m/uL [facility] WBC (Bld) [#/Vol] 6.73 10*3/uL [facility] Erythrocyte distribution width (RBC) [Ratio] 18.9 % High 11.5-15.0 [facility] Comment on above: Order Comment: Yojana riggins Type: BLOOD SPECIMEN Ordering Facility: [facility] [employer] Address: [address] [place] [address] Performed By: #### 5 8410-2 #### [facility] CLIA [id number] [address] [place] Hematocrit (Bld) [Volume fraction] 27.0 % Low 39.0-51.0 [facility] Comment on above: Order Comment: Speci men Type: BLOOD SPECIMEN Ordering Facility: [facility] Address: [address] [place] [address] Performed By: #### 5 8410-2 #### [facility] CLIA [id number] [address] Hemoglobin (Bld) [Mass/Vol] 8.5 g/dL Low 13.0-17.0 [facility] Comment on above: Order Comment: Speci men Type: BLOOD SPECIMEN Ordering Facility: [facility] Address: [address] [place] [address] Performed By: #### 5 8410-2 #### [facility] CLIA [id number] [address] MCH (RBC) [Entitic mass] 30.8 pg Normal 26.0-34.0 [facility] Comment on above: Order Comment: Speci men Type: BLOOD SPECIMEN Ordering Facility: [facility] Address: [address] [place] [address] Performed By: #### 5 8410-2 #### [facility] CLIA [id number] [address] MCHC (RBC) [Mass/Vol] 31.5 g/dL Normal 30.5-36.0 [facility] Comment on above: Order Comment: Speci men Type: BLOOD SPECIMEN Ordering Facility: [facility] Address: [address] [place] [address] Performed By: #### 5 8410-2 #### [facility] CLIA [id number] [address] MCV (RBC) [Entitic vol] 97.8 fL Normal 80.0-100.0 [facility] Comment on above: Order Comment: Speci men Type: BLOOD SPECIMEN Ordering Facility: [facility] Address: [address] [place] [address] Performed By: #### 5 8410-2 #### [facility] CLIA [id number] [address] [place] [address] [place] Nucleated RBC (Bld) [#/Vol] 10*3/uL Normal <0.01 [facility] Comment on above: Order Comment: Speci men Type: BLOOD SPECIMEN Ordering Facility: [facility] Address: [address] [place] [address] Performed By: #### 5 8410-2 #### [facility] CLIA [id number] [address] [place] [address] [place] Platelet mean volume (Bld) [Entitic vol] 8.7 fL Low 9.0-12.7 [facility] Comment on above: Order Comment: Speci men Type: BLOOD SPECIMEN Ordering Facility: [facility] Address: [address] [place] [address] Performed By: #### 5 8410-2 #### [facility] CLIA [id number] [address] [place] [address] [place] Platelets (Bld) [#/Vol] 245 10*3/uL Normal 150-400 [facility] Comment on above: Order Comment: Speci men Type: BLOOD SPECIMEN Ordering Facility: [facility] Address: [address] [place] [address] Performed By: #### 5 8410-2 #### [facility] CLIA [id number] [address] [place] [address] [place] RBC (Bld) [#/Vol] 2.76 10*6/uL Low 4.20-6.00 [facility] Comment on above: Order Comment: Speci men Type: BLOOD SPECIMEN Ordering Facility: [facility] Address: [address] [place] [address] Performed By: #### 5 8410-2 #### [facility] CLIA [id number] [address] [place] [address] [place] WBC (Bld) [#/Vol] 6.73 10*3/uL Normal 3.70-11.00 [facility] Comment on above: Order Comment: Speci men Type: BLOOD SPECIMEN Ordering Facility: [facility] Address: [address] [place] [address] Performed By: #### 5 8410-2 #### [facility] CLIA [id number] [address] CNOVon 09-16-2024 CNOV Normal [facility] CNPNon 09-16-2024 CNPN Normal [facility] NT PRO BNPon 09-16-2024 Natriuretic peptide.B prohormone N-Terminal [Mass/Vol] 5720 pg/mL High NINF - 125 pg/mL [facility] NT-proBNP SerPl-mCncon 09-16 Natriuretic peptide.B prohormone N-Terminal [Mass/Vol] 5720 pg/mL High <125 [facility] Comment on above: Order Comment: Speci men Type: BLOOD SPECIMEN Ordering Facility: [facility] Address: [address] [place] [address] Performed By: #### 2 4321-2 #### [facility] CLIA [id number] [address] No Panel Informationon 09-16 Interpretation and review of laboratory results Abnormal [facility] Basic metabolic 2000 panelon 09-12-2024 Anion gap [Moles/Vol] 11 mmol/L 8 - 15 mmol/L [facility] Calcium [Mass/Vol] 8.5 mg/dL 8.5 - 10. 2 mg/dL [facility] Chloride [Moles/Vol] 100 mmol/L 98 - 10 7 mmol/L [facility] CO2 [Moles/Vol] 24 mmol/L 22 - 30 mmol/L [facility] Creatinine [Mass/Vol] 1.17 mg/dL 0.73 - 1.22 mg/dL [facility] GFR/1.73 sq M.predicted among non-blacks MDRD (S/P/Bld) [Vol rate/Area] 67 mL/min/{1.73_m2} - PINF [facility] Comment on above: Estimated Glomerular Filtration Rate (eGFR) is calculated using the 2020 CKD-EPI creatinine equation. This equation utilizes serum creatinine, sex, and age as parameters. The creatinine assay has traceable calibration to isotope dilution-mass spectrometry. Refer to KDIGO guidelines for clinical interpretation. In patients with unstable renal function, e.g. those with acute kidney injury, the eGFR may not accurately reflect actual GFR. Glucose [Mass/Vol] 168 mg/dL High 74 - 99 mg/dL [facility] Comment on above: The [place] Di[employer] Association (ADA) provides guidance for cutoff values for fasting glucose and random glucose. The ADA defines fasting as no caloric intake for at least 8 hours. Fasting plasma glucose results between 100 to 125 mg/dL indicate increased risk for diabetes (prediabetes). Fasting plasma glucose results greater than or equal to 126 mg/dL meet the criteria for diagnosis of diabetes. In the absence of unequivocal hyperglycemia, results should be confirmed by repeat testing. In a patient with classic symptoms of hyperglycemia or hyperglycemic crisis, random plasma glucose results greater than or equal to 200 mg/dL meet the criteria for diagnosis of diabetes. Reference: Standards of Medical Care in Diabetes 2016, [place] [employer]. Diabetes Care. 2016.39(Suppl 1). Interpretation and review of laboratory results Abnormal [facility] Potassium [Moles/Vol] 4.7 mmol/L 3.7 - 5.1 mmol/L [facility] Sodium [Moles/Vol] 135 mmol/L Low 136 - 144 mmol/L [facility] Urea nitrogen [Mass/Vol] 17 mg/dL 9 - 24 mg/d L [facility] Anion gap [Moles/Vol] 11 mmol/L Normal 8-15 [facility] Comment on above: Order Comment: Yojana riggins Type: BLOOD SPECIMEN Ordering Facility: [facility] Address: [address] [place] [address] Performed By: #### 2 4321-2 #### [facility] CLIA [id number] [address] [place] [address] [place] Calcium [Mass/Vol] 8.5 mg/dL Normal 8.5-10.2 [facility] Comment on above: Order Comment: Yojana riggins Type: BLOOD SPECIMEN Ordering Facility: [facility] Address: [address] [place] [address] Performed By: #### 2 4321-2 #### [facility] CLIA [id number] [address] [place] [address] [place] Chloride [Moles/Vol] 100 mmol/L Normal 98-107 [facility] Comment on above: Order Comment: Speci men Type: BLOOD SPECIMEN Ordering Facility: [facility] Address: [address] [place] [address] Performed By: #### 2 4321-2 #### [facility] CLIA [id number] [address] [place] [address] [place] CO2 [Moles/Vol] 24 mmol/L Normal 22-30 [facility] Comment on above: Order Comment: Speci men Type: BLOOD SPECIMEN Ordering Facility: [facility] Address: [address] [place] [address] Performed By: #### 2 4321-2 #### [facility] CLIA [id number] [address] [place] [address] [place] Creatinine [Mass/Vol] 1.17 mg/dL Normal 0.73-1.22 [facility] Comment on above: Order Comment: Speci men Type: BLOOD SPECIMEN Ordering Facility: [facility] Address: [address] [place] [address] Performed By: #### 2 4321-2 #### [facility] CLIA [id number] [address] [place] [address] [place] Creatinine and Glomerular filtration rate.predicted panel (S/P/Bld) 67 mL/min/1.73m??? Normal >=60 [facility] Comment on above: Order Comment: Speci men Type: BLOOD SPECIMEN Ordering Facility: [facility] Address: [address] [place] [address] Result Comment: Apple mated Glomerular Filtration Rate (eGFR) is calculated using the 2020 CKD-EPI creatinine equation. This equation utilizes serum creatinine, sex, and age as parameters. The creatinine assay has traceable calibration to isotope dilution-mass spectrometry. Refer to KDIGO guidelines for clinical interpretation. In patients with unstable renal function, e.g. those with acute kidney injury, the eGFR may not accurately reflect actual GFR. Performed By: #### 2 4321-2 #### [facility] CLIA [id number] [address] [place] [address] [place] Glucose [Mass/Vol] 168 mg/dL High 74-99 [facility] Comment on above: Order Comment: Yojana men Type: BLOOD SPECIMEN Ordering Facility: [facility] Address: [address] [place] [address] Result Comment: The [place] Diabetes Association (ADA) provides guidance for cutoff values for fasting glucose and random glucose. The ADA defines fasting as no caloric intake for at least 8 hours. Fasting plasma glucose results between 100 to 125 mg/dL indicate increased risk for diabetes (prediabetes). Fasting plasma glucose results greater than or equal to 126 mg/dL meet the criteria for diagnosis of diabetes. In the absence of unequivocal hyperglycemia, results should be confirmed by repeat testing. In a patient with classic symptoms of hyperglycemia or hyperglycemic crisis, random plasma glucose results greater than or equal to 200 mg/dL meet the criteria for diagnosis of diabetes. Reference: Standards of Medical Care in Diabetes 2016, [place] [employer]. Diabetes Care. 2016.39(Suppl 1). Performed By: #### 2 4321-2 #### [facility] CLIA [id number] [address] [place] [address] [place] Potassium [Moles/Vol] 4.7 mmol/L Normal 3.7-5.1 [facility] Comment on above: Order Comment: Simrani men Type: BLOOD SPECIMEN Ordering Facility: [facility] Address: [address] [place] [address] Performed By: #### 2 4321-2 #### [facility] CLIA [id number] [address] [place] [address] [place] Sodium [Moles/Vol] 135 mmol/L Low 136-144 [facility] Comment on above: Order Comment: Speci men Type: BLOOD SPECIMEN Ordering Facility: [facility] Address: [address] [place] [address] Performed By: #### 2 4321-2 #### [facility] CLIA [id number] [address] [place] [address] [place] Urea nitrogen [Mass/Vol] 17 mg/dL Normal 9-24 [facility] Comment on above: Order Comment: Simrani men Type: BLOOD SPECIMEN Ordering Facility: [facility] Address: [address] [place] [address] Performed By: #### 2 4321-2 #### [facility] CLIA [id number] [address] [place] [address] [place] CBC panel Auto (Bld)on 09-12 Erythrocyte distribution width (RBC) [Ratio] 19 % High 11.5 - 15.0 % [facility] Hematocrit (Bld) [Volume fraction] 26.1 % Low 39.0 - 51.0 % [facility] Hemoglobin (Bld) [Mass/Vol] 8.1 g/dL Low 13.0 - 17.0 g/dL [facility] Interpretation and review of laboratory results Abnormal [facility] MCH (RBC) [Entitic mass] 30.6 pg 26. 0 - 34.0 pg [facility] MCHC (RBC) [Mass/Vol] 31 g/dL 30.5 - 36.0 g/dL [facility] MCV (RBC) [Entitic vol] 98.5 fL 80.0 - 100.0 fL [facility] Nucleated RBC (Bld) [#/Vol] NINF [facility] Platelet mean volume (Bld) [Entitic vol] 8.6 fL Low 9.0 - 12.7 fL [facility] Platelets (Bld) [#/Vol] 231 10*3/uL [facility] RBC (Bld) [#/Vol] 2.65 10*6/uL Low 4.20 - 6.0 0 m/uL [facility] WBC (Bld) [#/Vol] 6.84 10*3/uL [facility] Erythrocyte distribution width (RBC) [Ratio] 19.0 % High 11.5-15.0 [facility] Comment on above: Order Comment: Yojana riggins Type: BLOOD SPECIMEN Ordering Facility: [facility] Address: [address] [place] [address] Performed By: #### 5 8410-2 #### [facility] CLIA [id number] [address] [place] Hematocrit (Bld) [Volume fraction] 26.1 % Low 39.0-51.0 [facility] Comment on above: Order Comment: Yojana riggins Type: BLOOD SPECIMEN Ordering Facility: [facility] Address: [address] [place] [address] Performed By: #### 5 8410-2 #### [facility] CLIA [id number] [address] [facility] Hemoglobin (Bld) [Mass/Vol] 8.1 g/dL Low 13.0-17.0 [facility] Comment on above: Order Comment: Speci men Type: BLOOD SPECIMEN Ordering Facility: [facility] Address: [address] [place] [address] Performed By: #### 5 8410-2 #### [facility] CLIA [id number] [address] [place] MCH (RBC) [Entitic mass] 30.6 pg Normal 26.0-34.0 [facility] Comment on above: Order Comment: Speci men Type: BLOOD SPECIMEN Ordering Facility: [facility] Address: [address] [place] [address] Performed By: #### 5 8410-2 #### [facility] CLIA [id number] [address] MCHC (RBC) [Mass/Vol] 31.0 g/dL Normal 30.5-36.0 [facility] Comment on above: Order Comment: Speci men Type: BLOOD SPECIMEN Ordering Facility: [facility] Address: [address] [place] [address] Performed By: #### 5 8410-2 #### [facility] CLIA [id number] [address] MCV (RBC) [Entitic vol] 98.5 fL Normal 80.0-100.0 [facility] Comment on above: Order Comment: Speci men Type: BLOOD SPECIMEN Ordering Facility: [facility] Address: [address] [place] [address] Performed By: #### 5 8410-2 #### [facility] CLIA [id number] [address] Nucleated RBC (Bld) [#/Vol] 10*3/uL Normal <0.01 [facility] Comment on above: Order Comment: Speci men Type: BLOOD SPECIMEN Ordering Facility: [facility] Address: [address] [place] [address] Performed By: #### 5 8410-2 #### [facility] CLIA [id number] [address] [place] [address] [place] Platelet mean volume (Bld) [Entitic vol] 8.6 fL Low 9.0-12.7 [facility] Comment on above: Order Comment: Speci men Type: BLOOD SPECIMEN Ordering Facility: [facility] Address: [address] [place] [address] Performed By: #### 5 8410-2 #### [facility] CLIA [id number] [address] [place] [address] [place] Platelets (Bld) [#/Vol] 231 10*3/uL Normal 150-400 [facility] Comment on above: Order Comment: Speci men Type: BLOOD SPECIMEN Ordering Facility: [facility] Address: [address] [place] [address] Performed By: #### 5 8410-2 #### [facility] CLIA [id number] [address] [place] [address] [place] RBC (Bld) [#/Vol] 2.65 10*6/uL Low 4.20-6.00 [facility] Comment on above: Order Comment: Speci men Type: BLOOD SPECIMEN Ordering Facility: [facility] Address: [address] [place] [address] Performed By: #### 5 8410-2 #### [facility] CLIA [id number] [address] [place] [address] [place] WBC (Bld) [#/Vol] 6.84 10*3/uL Normal 3.70-11.00 [facility] Comment on above: Order Comment: Speci men Type: BLOOD SPECIMEN Ordering Facility: [facility] Address: [address] [place] [address] Performed By: #### 5 8410-2 #### [facility] CLIA [id number] [address] [place] [address] [place] Basic metabolic 2000 panelon 09-11-2024 Anion gap [Moles/Vol] 10 mmol/L 8 - 15 mmol/L [facility] Calcium [Mass/Vol] 8.2 mg/dL Low 8.5 - 10. 2 mg/dL [facility] Chloride [Moles/Vol] 99 mmol/L 98 - 10 7 mmol/L [facility] CO2 [Moles/Vol] 25 mmol/L 22 - 30 mmol/L [facility] Creatinine [Mass/Vol] 1.07 mg/dL 0.73 - 1.22 mg/dL [facility] GFR/1.73 sq M.predicted among non-blacks MDRD (S/P/Bld) [Vol rate/Area] 75 mL/min/{1.73_m2} - PINF [facility] Comment on above: Estimated Glomerular Filtration Rate (eGFR) is calculated using the 2020 CKD-EPI creatinine equation. This equation utilizes serum creatinine, sex, and age as parameters. The creatinine assay has traceable calibration to isotope dilution-mass spectrometry. Refer to KDIGO guidelines for clinical interpretation. In patients with unstable renal function, e.g. those with acute kidney injury, the eGFR may not accurately reflect actual GFR. Glucose [Mass/Vol] 214 mg/dL High 74 - 99 mg/dL [facility] Comment on above: The [place] Diab[employer] Association (ADA) provides guidance for cutoff values for fasting glucose and random glucose. The ADA defines fasting as no caloric intake for at least 8 hours. Fasting plasma glucose results between 100 to 125 mg/dL indicate increased risk for diabetes (prediabetes). Fasting plasma glucose results greater than or equal to 126 mg/dL meet the criteria for diagnosis of diabetes. In the absence of unequivocal hyperglycemia, results should be confirmed by repeat testing. In a patient with classic symptoms of hyperglycemia or hyperglycemic crisis, random plasma glucose results greater than or equal to 200 mg/dL meet the criteria for diagnosis of diabetes. Reference: Standards of Medical Care in Diabetes 2016, [place] [employer]. Diabetes Care. 2016.39(Suppl 1). Interpretation and review of laboratory results Abnormal [facility] Potassium [Moles/Vol] 4.2 mmol/L 3.7 - 5.1 mmol/L [facility] Sodium [Moles/Vol] 134 mmol/L Low 136 - 144 mmol/L [facility] Urea nitrogen [Mass/Vol] 18 mg/dL 9 - 24 mg/d L [facility] Anion gap [Moles/Vol] 10 mmol/L Normal 8-15 [facility] Comment on above: Order Comment: Speci men Type: BLOOD SPECIMEN Ordering Facility: [facility] Address: [address] [place] [address] Performed By: #### 2 4321-2 #### [facility] CLIA [id number] [address] [place] [address] [place] Calcium [Mass/Vol] 8.2 mg/dL Low 8.5-10.2 [facility] Comment on above: Order Comment: Speci men Type: BLOOD SPECIMEN Ordering Facility: [facility] Address: [address] [place] [address] Performed By: #### 2 4321-2 #### [facility] CLIA [id number] [address] [place] [address] [place] Chloride [Moles/Vol] 99 mmol/L Normal 98-107 [facility] Comment on above: Order Comment: Speci men Type: BLOOD SPECIMEN Ordering Facility: [facility] Address: [address] [place] [address] Performed By: #### 2 4321-2 #### [facility] CLIA [id number] [address] [place] [address] [place] CO2 [Moles/Vol] 25 mmol/L Normal 22-30 [facility] Comment on above: Order Comment: Speci men Type: BLOOD SPECIMEN Ordering Facility: [facility] Address: [address] [place] [address] Performed By: #### 2 4321-2 #### [facility] CLIA [id number] [address] [place] [address] [place] Creatinine [Mass/Vol] 1.07 mg/dL Normal 0.73-1.22 [facility] Comment on above: Order Comment: Speci men Type: BLOOD SPECIMEN Ordering Facility: [facility] Address: [address] [place] [address] Performed By: #### 2 4321-2 #### [facility] CLIA [id number] [address] [place] [address] [place] Creatinine and Glomerular filtration rate.predicted panel (S/P/Bld) 75 mL/min/1.73m??? Normal >=60 [facility] Comment on above: Order Comment: Yojana riggins Type: BLOOD SPECIMEN Ordering Facility: [facility] Address: [address] [place] [address] Result Comment: Apple mated Glomerular Filtration Rate (eGFR) is calculated using the 2020 CKD-EPI creatinine equation. This equation utilizes serum creatinine, sex, and age as parameters. The creatinine assay has traceable calibration to isotope dilution-mass spectrometry. Refer to KDIGO guidelines for clinical interpretation. In patients with unstable renal function, e.g. those with acute kidney injury, the eGFR may not accurately reflect actual GFR. Performed By: #### 2 4321-2 #### [facility] CLIA [id number] [address] [place] [address] [place] Glucose [Mass/Vol] 214 mg/dL High 74-99 [facility] Comment on above: Order Comment: Yojana riggins Type: BLOOD SPECIMEN Ordering Facility: [facility] Address: [address] [place] [address] Result Comment: The [place] Diabetes Association (ADA) provides guidance for cutoff values for fasting glucose and random glucose. The ADA defines fasting as no caloric intake for at least 8 hours. Fasting plasma glucose results between 100 to 125 mg/dL indicate increased risk for diabetes (prediabetes). Fasting plasma glucose results greater than or equal to 126 mg/dL meet the criteria for diagnosis of diabetes. In the absence of unequivocal hyperglycemia, results should be confirmed by repeat testing. In a patient with classic symptoms of hyperglycemia or hyperglycemic crisis, random plasma glucose results greater than or equal to 200 mg/dL meet the criteria for diagnosis of diabetes. Reference: Standards of Medical Care in Diabetes 2016, [place] [employer]. Diabetes Care. 2016.39(Suppl 1). Performed By: #### 2 4321-2 #### [facility] CLIA [id number] [address] [place] [id number] [place] Potassium [Moles/Vol] 4.2 mmol/L Normal 3.7-5.1 [facility] Comment on above: Order Comment: Speci men Type: BLOOD SPECIMEN Ordering Facility: [facility] Address: [address] [place] [address] Performed By: #### 2 4321-2 #### [facility] CLIA [id number] [address] [place] Sodium [Moles/Vol] 134 mmol/L Low 136-144 [facility] Comment on above: Order Comment: Speci men Type: BLOOD SPECIMEN Ordering Facility: [facility] Address: [address] [place] [address] Performed By: #### 2 4321-2 #### [facility] CLIA [id number] [address] [place] Urea nitrogen [Mass/Vol] 18 mg/dL Normal 9-24 [facility] Comment on above: Order Comment: Speci men Type: BLOOD SPECIMEN Ordering Facility: [facility] Address: [address] [place] [address] Performed By: #### 2 4321-2 #### [facility] CLIA [id number] [address] [place] CBC panel Auto (Bld)on 09-11 Erythrocyte distribution width (RBC) [Ratio] 18.8 % High 11.5 - 15.0 % [facility] Hematocrit (Bld) [Volume fraction] 24.7 % Low 39.0 - 51.0 % [facility] Hemoglobin (Bld) [Mass/Vol] 7.6 g/dL Low 13.0 - 17.0 g/dL [facility] Interpretation and review of laboratory results Abnormal [facility] MCH (RBC) [Entitic mass] 29.9 pg 26. 0 - 34.0 pg [facility] MCHC (RBC) [Mass/Vol] 30.8 g/dL 30.5 - 36.0 g/dL [facility] MCV (RBC) [Entitic vol] 97.2 fL 80.0 - 100.0 fL [facility] Nucleated RBC (Bld) [#/Vol] NINF [facility] Platelet mean volume (Bld) [Entitic vol] 8.4 fL Low 9.0 - 12.7 fL [facility] Platelets (Bld) [#/Vol] 220 10*3/uL [facility] RBC (Bld) [#/Vol] 2.54 10*6/uL Low 4.20 - 6.0 0 m/uL [facility] WBC (Bld) [#/Vol] 6.47 10*3/uL [facility] Erythrocyte distribution width (RBC) [Ratio] 18.8 % High 11.5-15.0 [facility] Comment on above: Order Comment: Speci men Type: BLOOD SPECIMEN Ordering Facility: [facility] Address: [address] [place] [address] Performed By: #### 5 8410-2 #### [facility] CLIA [id number] [address] Hematocrit (Bld) [Volume fraction] 24.7 % Low 39.0-51.0 [facility] Comment on above: Order Comment: Speci men Type: BLOOD SPECIMEN Ordering Facility: [facility] Address: [address] [place] [address] Performed By: #### 5 8410-2 #### [facility] CLIA [id number] [address] [place] OF [facility] Hemoglobin (Bld) [Mass/Vol] 7.6 g/dL Low 13.0-17.0 [facility] Comment on above: Order Comment: Speci men Type: BLOOD SPECIMEN Ordering Facility: [facility] Address: [address] [place] [address] Performed By: #### 5 8410-2 #### [facility] CLIA [id number] [address] [place] OF [facility] MCH (RBC) [Entitic mass] 29.9 pg Normal 26.0-34.0 [facility] Comment on above: Order Comment: Speci men Type: BLOOD SPECIMEN Ordering Facility: [facility] Address: [address] [place] [address] Performed By: #### 5 8410-2 #### [facility] CLIA [id number] [address] [place] MCHC (RBC) [Mass/Vol] 30.8 g/dL Normal 30.5-36.0 [facility] Comment on above: Order Comment: Speci men Type: BLOOD SPECIMEN Ordering Facility: [facility] Address: [address] [place] [address] Performed By: #### 5 8410-2 #### [facility] CLIA [id number] [address] [place] MCV (RBC) [Entitic vol] 97.2 fL Normal 80.0-100.0 [facility] Comment on above: Order Comment: Speci men Type: BLOOD SPECIMEN Ordering Facility: [facility] Address: [address] [place] [address] Performed By: #### 5 8410-2 #### [facility] CLIA [id number] [address] [place] Nucleated RBC (Bld) [#/Vol] 10*3/uL Normal <0.01 [facility] Comment on above: Order Comment: Speci men Type: BLOOD SPECIMEN Ordering Facility: [facility] Address: [address] [place] [address] Performed By: #### 5 8410-2 #### [facility] CLIA [id number] [address] [place] Platelet mean volume (Bld) [Entitic vol] 8.4 fL Low 9.0-12.7 [facility] Comment on above: Order Comment: Speci men Type: BLOOD SPECIMEN Ordering Facility: [facility] Address: [address] [place] [address] Performed By: #### 5 8410-2 #### [facility] CLIA [id number] [address] [place] [address] [place] Platelets (Bld) [#/Vol] 220 10*3/uL Normal 150-400 [facility] Comment on above: Order Comment: Speci men Type: BLOOD SPECIMEN Ordering Facility: [facility] Address: [address] [place] [address] Performed By: #### 5 8410-2 #### [facility] CLIA [id number] [address] RBC (Bld) [#/Vol] 2.54 10*6/uL Low 4.20-6.00 [facility] Comment on above: Order Comment: Speci men Type: BLOOD SPECIMEN Ordering Facility: [facility] Address: [address] [place] [address] Performed By: #### 5 8410-2 #### [facility] CLIA [id number] [address] WBC (Bld) [#/Vol] 6.47 10*3/uL Normal 3.70-11.00 [facility] Comment on above: Order Comment: Speci men Type: BLOOD SPECIMEN Ordering Facility: [facility] Address: [address] [place] [address] Performed By: #### 5 8410-2 #### [facility] CLIA [id number] [address] [place] Basic metabolic 2000 panelon 09-09-2024 Anion gap [Moles/Vol] 10 mmol/L 8 - 15 mmol/L [facility] Calcium [Mass/Vol] 8.3 mg/dL Low 8.5 - 10. 2 mg/dL [facility] Chloride [Moles/Vol] 99 mmol/L 98 - 10 7 mmol/L [facility] CO2 [Moles/Vol] 24 mmol/L 22 - 30 mmol/L [facility] Creatinine [Mass/Vol] 1.14 mg/dL 0.73 - 1.22 mg/dL [facility] GFR/1.73 sq M.predicted among non-blacks MDRD (S/P/Bld) [Vol rate/Area] 70 mL/min/{1.73_m2} - PINF [facility] Comment on above: Estimated Glomerular Filtration Rate (eGFR) is calculated using the 2020 CKD-EPI creatinine equation. This equation utilizes serum creatinine, sex, and age as parameters. The creatinine assay has traceable calibration to isotope dilution-mass spectrometry. Refer to KDIGO guidelines for clinical interpretation. In patients with unstable renal function, e.g. those with acute kidney injury, the eGFR may not accurately reflect actual GFR. Glucose [Mass/Vol] 111 mg/dL High 74 - 99 mg/dL [facility] Comment on above: The [place] Di[employer] Association (ADA) provides guidance for cutoff values for fasting glucose and random glucose. The ADA defines fasting as no caloric intake for at least 8 hours. Fasting plasma glucose results between 100 to 125 mg/dL indicate increased risk for diabetes (prediabetes). Fasting plasma glucose results greater than or equal to 126 mg/dL meet the criteria for diagnosis of diabetes. In the absence of unequivocal hyperglycemia, results should be confirmed by repeat testing. In a patient with classic symptoms of hyperglycemia or hyperglycemic crisis, random plasma glucose results greater than or equal to 200 mg/dL meet the criteria for diagnosis of diabetes. Reference: Standards of Medical Care in Diabetes 2016, [place] [employer]. Diabetes Care. 2016.39(Suppl 1). Potassium [Moles/Vol] 4.1 mmol/L 3.7 - 5.1 mmol/L [facility] Sodium [Moles/Vol] 133 mmol/L Low 136 - 144 mmol/L [facility] Urea nitrogen [Mass/Vol] 20 mg/dL 9 - 24 mg/d L [facility] Anion gap [Moles/Vol] 10 mmol/L Normal 8-15 [facility] Comment on above: Order Comment: Speci men Type: BLOOD SPECIMEN Ordering Facility: [facility] Address: [address] [place] [address] Performed By: #### 2 4321-2 #### [facility] CLIA [id number] [address] [place] [address] [place] Calcium [Mass/Vol] 8.3 mg/dL Low 8.5-10.2 [facility] Comment on above: Order Comment: Speci men Type: BLOOD SPECIMEN Ordering Facility: [facility] Address: [address] [place] [address] Performed By: #### 2 4321-2 #### [facility] CLIA [id number] [address] [place] [address] [place] Chloride [Moles/Vol] 99 mmol/L Normal 98-107 [facility] Comment on above: Order Comment: Speci men Type: BLOOD SPECIMEN Ordering Facility: [facility] Address: [address] [place], [place] [id number] Performed By: #### 2 4321-2 #### [facility] CLIA [id number] [address] [place] [address] [place] CO2 [Moles/Vol] 24 mmol/L Normal 22-30 [facility] Comment on above: Order Comment: Speci gilson Type: BLOOD SPECIMEN Ordering Facility: [facility] Address: [address] [place] [address] Performed By: #### 2 4321-2 #### [facility] CLIA [id number] [address] [place] [address] [place] Creatinine [Mass/Vol] 1.14 mg/dL Normal 0.73-1.22 [facility] Comment on above: Order Comment: Simrani men Type: BLOOD SPECIMEN Ordering Facility: [facility] Address: [address] [place] [address] Performed By: #### 2 4321-2 #### [facility] CLIA [id number] [address] Creatinine and Glomerular filtration rate.predicted panel (S/P/Bld) 70 mL/min/1.73m??? Normal >=60 [facility] Comment on above: Order Comment: Yojana riggins Type: BLOOD SPECIMEN Ordering Facility: [facility] Address: [address] [place] [address] Result Comment: Apple mated Glomerular Filtration Rate (eGFR) is calculated using the 2020 CKD-EPI creatinine equation. This equation utilizes serum creatinine, sex, and age as parameters. The creatinine assay has traceable calibration to isotope dilution-mass spectrometry. Refer to KDIGO guidelines for clinical interpretation. In patients with unstable renal function, e.g. those with acute kidney injury, the eGFR may not accurately reflect actual GFR. Performed By: #### 2 4321-2 #### [facility] CLIA [id number] [address] [place] [facility] Glucose [Mass/Vol] 111 mg/dL High 74-99 [facility] Comment on above: Order Comment: Simrani men Type: BLOOD SPECIMEN Ordering Facility: [facility] Address: [address] [place] [address] Result Comment: The [place] Diabetes Association (ADA) provides guidance for cutoff values for fasting glucose and random glucose. The ADA defines fasting as no caloric intake for at least 8 hours. Fasting plasma glucose results between 100 to 125 mg/dL indicate increased risk for diabetes (prediabetes). Fasting plasma glucose results greater than or equal to 126 mg/dL meet the criteria for diagnosis of diabetes. In the absence of unequivocal hyperglycemia, results should be confirmed by repeat testing. In a patient with classic symptoms of hyperglycemia or hyperglycemic crisis, random plasma glucose results greater than or equal to 200 mg/dL meet the criteria for diagnosis of diabetes. Reference: Standards of Medical Care in Diabetes 2016, [place] [employer]. Diabetes Care. 2016.39(Suppl 1). Performed By: #### 2 4321-2 #### [facility] CLIA [id number] [address] [place] [address] [place] Potassium [Moles/Vol] 4.1 mmol/L Normal 3.7-5.1 [facility] Comment on above: Order Comment: Speci men Type: BLOOD SPECIMEN Ordering Facility: [facility] Address: [address] [place] [address] Performed By: #### 2 4321-2 #### [facility] CLIA [id number] [address] [place] [address] [place] Sodium [Moles/Vol] 133 mmol/L Low 136-144 [facility] Comment on above: Order Comment: Speci men Type: BLOOD SPECIMEN Ordering Facility: [facility] Address: [address] [place] [address] Performed By: #### 2 4321-2 #### [facility] CLIA [id number] [address] [place] [address] [place] Urea nitrogen [Mass/Vol] 20 mg/dL Normal 9-24 [facility] Comment on above: Order Comment: Speci men Type: BLOOD SPECIMEN Ordering Facility: [facility] Address: [address] [place] [address] Performed By: #### 2 4321-2 #### [facility] CLIA [id number] [address] [place] [address] [place] CBC panel Auto (Bld)on 09-09 Erythrocyte distribution width (RBC) [Ratio] 18.9 % High 11.5 - 15.0 % [facility] Hematocrit (Bld) [Volume fraction] 23.3 % Low 39.0 - 51.0 % [facility] Hemoglobin (Bld) [Mass/Vol] 7.4 g/dL Low 13.0 - 17.0 g/dL [facility] Interpretation and review of laboratory results Abnormal [facility] MCH (RBC) [Entitic mass] 30.7 pg 26. 0 - 34.0 pg [facility] MCHC (RBC) [Mass/Vol] 31.8 g/dL 30.5 - 36.0 g/dL [facility] MCV (RBC) [Entitic vol] 96.7 fL 80.0 - 100.0 fL [facility] Nucleated RBC (Bld) [#/Vol] NINF [facility] Platelet mean volume (Bld) [Entitic vol] 8.6 fL Low 9.0 - 12.7 fL [facility] Platelets (Bld) [#/Vol] 211 10*3/uL [facility] RBC (Bld) [#/Vol] 2.41 10*6/uL Low 4.20 - 6.0 0 m/uL [facility] WBC (Bld) [#/Vol] 5.56 10*3/uL [facility] Erythrocyte distribution width (RBC) [Ratio] 18.9 % High 11.5-15.0 [facility] Comment on above: Order Comment: Yojana riggins Type: BLOOD SPECIMEN Ordering Facility: [facility] Address: [address] [place] [address] Performed By: #### 2 4321-2 #### [facility] CLIA [id number] [address] Hematocrit (Bld) [Volume fraction] 23.3 % Low 39.0-51.0 [facility] Comment on above: Order Comment: Yojana riggins Type: BLOOD SPECIMEN Ordering Facility: [facility] Address: [address] [place] [address] Performed By: #### 2 4321-2 #### [facility] CLIA [id number] [address] [facility] Hemoglobin (Bld) [Mass/Vol] 7.4 g/dL Low 13.0-17.0 [facility] Comment on above: Order Comment: Speci men Type: BLOOD SPECIMEN Ordering Facility: [facility] Address: [address] [place] [address] Performed By: #### 2 4321-2 #### [facility] CLIA [id number] [address] [place] MCH (RBC) [Entitic mass] 30.7 pg Normal 26.0-34.0 [facility] Comment on above: Order Comment: Speci men Type: BLOOD SPECIMEN Ordering Facility: [facility] Address: [address] [place] [address] Performed By: #### 2 4321-2 #### [facility] CLIA [id number] [address] MCHC (RBC) [Mass/Vol] 31.8 g/dL Normal 30.5-36.0 [facility] Comment on above: Order Comment: Speci men Type: BLOOD SPECIMEN Ordering Facility: [facility] Address: [address] [place] [address] Performed By: #### 2 4321-2 #### [facility] CLIA [id number] [address] OF [facility] MCV (RBC) [Entitic vol] 96.7 fL Normal 80.0-100.0 [facility] Comment on above: Order Comment: Speci men Type: BLOOD SPECIMEN Ordering Facility: [facility] Address: [address] [place] [address] Performed By: #### 2 4321-2 #### [facility] CLIA [id number] [address] Nucleated RBC (Bld) [#/Vol] 10*3/uL Normal <0.01 [facility] Comment on above: Order Comment: Speci men Type: BLOOD SPECIMEN Ordering Facility: [facility] Address: [address] [place] [address] Performed By: #### 2 4321-2 #### [facility] CLIA [id number] [address] [place] [address] [place] Platelet mean volume (Bld) [Entitic vol] 8.6 fL Low 9.0-12.7 [facility] Comment on above: Order Comment: Speci men Type: BLOOD SPECIMEN Ordering Facility: [facility] Address: [address] [place] [address] Performed By: #### 2 4321-2 #### [facility] CLIA [id number] [address] [place] [address] [place] Platelets (Bld) [#/Vol] 211 10*3/uL Normal 150-400 [facility] Comment on above: Order Comment: Speci men Type: BLOOD SPECIMEN Ordering Facility: [facility] Address: [address] [place] [address] Performed By: #### 2 4321-2 #### [facility] CLIA [id number] [address] [place] [address] [place] RBC (Bld) [#/Vol] 2.41 10*6/uL Low 4.20-6.00 [facility] Comment on above: Order Comment: Speci men Type: BLOOD SPECIMEN Ordering Facility: [facility] Address: [address] [place] [address] Performed By: #### 2 4321-2 #### [facility] CLIA [id number] [address] [place] [address] [place] WBC (Bld) [#/Vol] 5.56 10*3/uL Normal 3.70-11.00 [facility] Comment on above: Order Comment: Speci men Type: BLOOD SPECIMEN Ordering Facility: [facility] Address: [address] [place] [address] Performed By: #### 2 4321-2 #### [facility] CLIA [id number] [address] [place] [address] [place] CNPNon 09-09-2024 CNPN Normal [facility] NT PRO BNPon 09-09-2024 Natriuretic peptide.B prohormone N-Terminal [Mass/Vol] 5754 pg/mL High NINF - 125 pg/mL [facility] NT-proBNP SerPl-mCncon 09-09 Natriuretic peptide.B prohormone N-Terminal [Mass/Vol] 5754 pg/mL High <125 [facility] Comment on above: Order Comment: Speci men Type: BLOOD SPECIMEN Ordering Facility: [facility] Address: [address] [place] [address] Performed By: #### 2 4321-2 #### [facility] CLIA [id number] [address] [place] [address] [place] No Panel Informationon 09-09 Interpretation and review of laboratory results Abnormal [facility] Basic metabolic 2000 panelon 09-08-2024 Anion gap [Moles/Vol] 10 mmol/L Normal 8-15 [facility] Comment on above: Order Comment: Simrani men Type: BLOOD SPECIMEN Ordering Facility: [facility] Address: [address] [place] [address] Performed By: #### 2 4321-2 #### [facility] CLIA [id number] [address] [place] [address] [place] Calcium [Mass/Vol] 8.2 mg/dL Low 8.5-10.2 [facility] Comment on above: Order Comment: Speci men Type: BLOOD SPECIMEN Ordering Facility: [facility] Address: [address] [place] [address] Performed By: #### 2 4321-2 #### [facility] CLIA [id number] [address] [place] [address] [place] Chloride [Moles/Vol] 100 mmol/L Normal 98-107 [facility] Comment on above: Order Comment: Speci men Type: BLOOD SPECIMEN Ordering Facility: [facility] Address: [address] [place] [address] Performed By: #### 2 4321-2 #### [facility] CLIA [id number] [address] [place] [address] [place] CO2 [Moles/Vol] 24 mmol/L Normal 22-30 [facility] Comment on above: Order Comment: Speci men Type: BLOOD SPECIMEN Ordering Facility: [facility] Address: [address] [place] [address] Performed By: #### 2 4321-2 #### [facility] CLIA [id number] [address] Creatinine [Mass/Vol] 1.17 mg/dL Normal 0.73-1.22 [facility] Comment on above: Order Comment: Yojana men Type: BLOOD SPECIMEN Ordering Facility: [facility] Address: [address] [place] [address] Performed By: #### 2 4321-2 #### [facility] CLIA [id number] [address] Creatinine and Glomerular filtration rate.predicted panel (S/P/Bld) 67 mL/min/1.73m??? Normal >=60 [facility] Comment on above: Order Comment: Yojana riggins Type: BLOOD SPECIMEN Ordering Facility: [facility] Address: [address] [place] [address] Result Comment: Apple mated Glomerular Filtration Rate (eGFR) is calculated using the 2020 CKD-EPI creatinine equation. This equation utilizes serum creatinine, sex, and age as parameters. The creatinine assay has traceable calibration to isotope dilution-mass spectrometry. Refer to KDIGO guidelines for clinical interpretation. In patients with unstable renal function, e.g. those with acute kidney injury, the eGFR may not accurately reflect actual GFR. Performed By: #### 2 4321-2 #### [facility] CLIA [id number] [address] STATES OF [facility] Glucose [Mass/Vol] 148 mg/dL High 74-99 [facility] Comment on above: Order Comment: Simrani gilson Type: BLOOD SPECIMEN Ordering Facility: [facility] Address: [address] [place] [address] Result Comment: The [place] Diabetes [employer] (ADA) provides guidance for cutoff values for fasting glucose and random glucose. The ADA defines fasting as no caloric intake for at least 8 hours. Fasting plasma glucose results between 100 to 125 mg/dL indicate increased risk for diabetes (prediabetes). Fasting plasma glucose results greater than or equal to 126 mg/dL meet the criteria for diagnosis of diabetes. In the absence of unequivocal hyperglycemia, results should be confirmed by repeat testing. In a patient with classic symptoms of hyperglycemia or hyperglycemic crisis, random plasma glucose results greater than or equal to 200 mg/dL meet the criteria for diagnosis of diabetes. Reference: Standards of Medical Care in Diabetes 2016, [place] [employer]. Diabetes Care. 2016.39(Suppl 1). Performed By: #### 2 4321-2 #### [facility] CLIA [id number] [address] STATES OF [facility] Potassium [Moles/Vol] 4.2 mmol/L Normal 3.7-5.1 [facility] Comment on above: Order Comment: Yojana riggins Type: BLOOD SPECIMEN Ordering Facility: [facility] Address: [address] [place] [address] Performed By: #### 2 4321-2 #### [facility] CLIA [id number] [address] [place] [facility] Sodium [Moles/Vol] 134 mmol/L Low 136-144 [facility] Comment on above: Order Comment: Yojana riggins Type: BLOOD SPECIMEN Ordering Facility: [facility] Address: [address] [place] [address] Performed By: #### 2 4321-2 #### [facility] CLIA [id number] [address] [place] [facility] Urea nitrogen [Mass/Vol] 26 mg/dL High 9-24 [facility] Comment on above: Order Comment: Yojana riggins Type: BLOOD SPECIMEN Ordering Facility: [facility] Address: [address] [place] [address] Performed By: #### 2 4321-2 #### [facility] CLIA [id number] [address] [place] CBC panel Auto (Bld)on 09-08 Erythrocyte distribution width (RBC) [Ratio] 19.0 % High 11.5-15.0 [facility] Comment on above: Order Comment: Yojana riggins Type: BLOOD SPECIMEN Ordering Facility: [facility] Address: [address] [place] [address] Performed By: #### 5 8410-2 #### [facility] CLIA [id number] [address] Hematocrit (Bld) [Volume fraction] 22.8 % Low 39.0-51.0 [facility] Comment on above: Order Comment: Speci men Type: BLOOD SPECIMEN Ordering Facility: [facility] Address: [address] [place] [address] Performed By: #### 5 8410-2 #### [facility] CLIA [id number] [address] [place] Hemoglobin (Bld) [Mass/Vol] 7.3 g/dL Low 13.0-17.0 [facility] Comment on above: Order Comment: Speci men Type: BLOOD SPECIMEN Ordering Facility: [facility] Address: [address] [place] [address] Performed By: #### 5 8410-2 #### [facility] CLIA [id number] [address] MCH (RBC) [Entitic mass] 30.3 pg Normal 26.0-34.0 [facility] Comment on above: Order Comment: Speci men Type: BLOOD SPECIMEN Ordering Facility: [facility] Address: [address] [place] [address] Performed By: #### 5 8410-2 #### [facility] CLIA [id number] [address] [place] MCHC (RBC) [Mass/Vol] 32.0 g/dL Normal 30.5-36.0 [facility] Comment on above: Order Comment: Speci men Type: BLOOD SPECIMEN Ordering Facility: [facility] Address: [address] [place] [address] Performed By: #### 5 8410-2 #### [facility] CLIA [id number] [address] MCV (RBC) [Entitic vol] 94.6 fL Normal 80.0-100.0 [facility] Comment on above: Order Comment: Speci men Type: BLOOD SPECIMEN Ordering Facility: [facility] Address: [address] [place] [address] Performed By: #### 5 8410-2 #### [facility] CLIA [id number] [address] [place] [address] [place] Nucleated RBC (Bld) [#/Vol] 10*3/uL Normal <0.01 [facility] Comment on above: Order Comment: Speci men Type: BLOOD SPECIMEN Ordering Facility: [facility] Address: [address] [place] [address] Performed By: #### 5 8410-2 #### [facility] CLIA [id number] [address] [place] [address] [place] Platelet mean volume (Bld) [Entitic vol] 8.5 fL Low 9.0-12.7 [facility] Comment on above: Order Comment: Speci men Type: BLOOD SPECIMEN Ordering Facility: [facility] Address: [address] [place] [address] Performed By: #### 5 8410-2 #### [facility] CLIA [id number] [address] [place] [address] [place] Platelets (Bld) [#/Vol] 215 10*3/uL Normal 150-400 [facility] Comment on above: Order Comment: Speci men Type: BLOOD SPECIMEN Ordering Facility: [facility] Address: [address] [place] [address] Performed By: #### 5 8410-2 #### [facility] CLIA [id number] [address] [place] [address] [place] RBC (Bld) [#/Vol] 2.41 10*6/uL Low 4.20-6.[address] [facility] Comment on above: Order Comment: Speci men Type: BLOOD SPECIMEN Ordering Facility: [facility] Address: [address] [place] [address] Performed By: #### 5 8410-2 #### [facility] CLIA [id number] [address] [place] WBC (Bld) [#/Vol] 5.89 10*3/uL Normal 3.70-11.[address] [facility] Comment on above: Order Comment: Speci men Type: BLOOD SPECIMEN Ordering Facility: [facility] Address: [address] [place] [address] Performed By: #### 5 8410-2 #### [facility] CLIA [id number] [address] CBC panel Auto (Bld)on 09-07 Erythrocyte distribution width (RBC) [Ratio] 19.2 % High 11.5-15.0 [facility] Comment on above: Order Comment: Speci men Type: BLOOD SPECIMEN Ordering Facility: [facility] Address: [address] [place] [address] Performed By: #### 5 8410-2 #### [facility] CLIA [id number] [address] Hematocrit (Bld) [Volume fraction] 21.7 % Low 39.0-51.0 [facility] Comment on above: Order Comment: Speci men Type: BLOOD SPECIMEN Ordering Facility: [facility] Address: [address] [place] [address] Performed By: #### 5 8410-2 #### [facility] CLIA [id number] [address] Hemoglobin (Bld) [Mass/Vol] 7.1 g/dL Low 13.0-17.0 [facility] Comment on above: Order Comment: Speci men Type: BLOOD SPECIMEN Ordering Facility: [facility] Address: [address] [place] [address] Performed By: #### 5 8410-2 #### [facility] CLIA [id number] [address] Interpretation and review of laboratory results Abnormal [facility] MCH (RBC) [Entitic mass] 30.6 pg Normal 26.0-34.0 [facility] Comment on above: Order Comment: Speci men Type: BLOOD SPECIMEN Ordering Facility: [facility] Address: [address] [place] [address] Performed By: #### 5 8410-2 #### [facility] CLIA [id number] [address] [place] MCHC (RBC) [Mass/Vol] 32.7 g/dL Normal 30.5-36.0 [facility] Comment on above: Order Comment: Speci men Type: BLOOD SPECIMEN Ordering Facility: [facility] Address: [address] [place] [address] Performed By: #### 5 8410-2 #### [facility] CLIA [id number] [address] [place] [address] [place] MCV (RBC) [Entitic vol] 93.5 fL Normal 80.0-100.0 [facility] Comment on above: Order Comment: Speci men Type: BLOOD SPECIMEN Ordering Facility: [facility] Address: [address] [place] [address] Performed By: #### 5 8410-2 #### [facility] CLIA [id number] [address] [place] [address] [place] Nucleated RBC (Bld) [#/Vol] NINF [facility] Platelet mean volume (Bld) [Entitic vol] 8.7 fL Low 9.0-12.7 [facility] Comment on above: Order Comment: Speci men Type: BLOOD SPECIMEN Ordering Facility: [facility] Address: [address] [place] [address] Performed By: #### 5 8410-2 #### [facility] CLIA [id number] [address] [place] [address] [place] Platelets (Bld) [#/Vol] 220 10*3/uL Normal 150-400 [facility] Comment on above: Order Comment: Speci men Type: BLOOD SPECIMEN Ordering Facility: [facility] Address: [address] [place] [address] Performed By: #### 5 8410-2 #### [facility] CLIA [id number] [address] [place] [address] [place] RBC (Bld) [#/Vol] 2.32 10*6/uL Low 4.20-6.00 [facility] Comment on above: Order Comment: Speci men Type: BLOOD SPECIMEN Ordering Facility: [facility] Address: [address] [place] [address] Performed By: #### 5 8410-2 #### [facility] CLIA [id number] [address] [place] [address] [place] WBC (Bld) [#/Vol] 6.86 10*3/uL Normal 3.70-11.00 [facility] Comment on above: Order Comment: Speci men Type: BLOOD SPECIMEN Ordering Facility: [facility] Address: [address] [place] [address] Performed By: #### 5 8410-2 #### [facility] CLIA [id number] [address] [place] [address] [place] [facility] Nucleated RBC (Bld) [#/Vol] 10*3/uL Normal <0.01 [facility] Comment on above: Order Comment: Speci men Type: BLOOD SPECIMEN Ordering Facility: [facility] Address: [address] [place] [address] Performed By: #### 5 8410-2 #### [facility] CLIA [id number] [address] [place] TYPE + SCREENon 09-07-2024 ABO O Normal [facility] Comment on above: Order Comment: Speci men Type: BLOOD SPECIMEN Ordering Facility: [facility] Address: [address] [place] [address] Performed By: #### T SCR #### [facility] CLIA [id number] [address] [place] Rh Nom (Bld) Positive Normal [facility] Comment on above: Order Comment: Speci men Type: BLOOD SPECIMEN Ordering Facility: [facility] Address: [address] [place] [address] Performed By: #### T SCR #### [facility] CLIA [id number] [address] [place] TYPE AND SCREEN EXPIRATION 09/10/2024 23:59 Normal [facility] Comment on above: Order Comment: Speci men Type: BLOOD SPECIMEN Ordering Facility: [facility] Address: [address] [place] [address] Performed By: #### T SCR #### [facility] CLIA [id number] [address] Urinalysis complete panel (U )on 09-07-2024 Bacteria LM.HPF (Urine sed) [#/Area] Rare Abnormal None Seen [facility] Comment on above: Order Comment: Speci men Type: URINE SPECIMEN Ordering Facility: [facility] Address: [address] [place] [address] Performed By: #### 2 4356-8 #### [facility] CLIA [id number] [address] Bilirubin Ql (U) Negative Normal Negative [facility] Comment on above: Order Comment: Speci men Type: URINE SPECIMEN Ordering Facility: [facility] Address: [address] [place] [address] Performed By: #### 2 4356-8 #### [facility] CLIA [id number] [address] Clarity (Unsp spec) Clear Normal Clear [facility] Comment on above: Order Comment: Speci men Type: URINE SPECIMEN Ordering Facility: [facility] Address: [address] [place] [address] Performed By: #### 2 4356-8 #### [facility] CLIA [id number] [address] Color (U) Yellow Normal Yellow [facility] Comment on above: Order Comment: Speci men Type: URINE SPECIMEN Ordering Facility: [facility] Address: [address] [place] [address] Performed By: #### 2 4356-8 #### [facility] CLIA [id number] [address] Glucose Test strip (U) [Mass/Vol] Negative Normal Negative [facility] Comment on above: Order Comment: Speci men Type: URINE SPECIMEN Ordering Facility: [facility] Address: [address] [place] [address] Performed By: #### 2 4356-8 #### [facility] CLIA [id number] [address] [place] [address] [place] Hemoglobin Ql (U) 3+ Abnormal Negative [facility] Comment on above: Order Comment: Speci men Type: URINE SPECIMEN Ordering Facility: [facility] Address: [address] [place] [address] Performed By: #### 2 4356-8 #### [facility] CLIA [id number] [address] [place] [address] [place] Ketones Ql (U) Negative Normal Negative [facility] Comment on above: Order Comment: Speci men Type: URINE SPECIMEN Ordering Facility: [facility] Address: [address] [place] [address] Performed By: #### 2 6-8 #### [facility] CLIA [id number] [address] [place] Leukocyte esterase Test strip Ql (U) Trace Abnormal Negative [facility] Comment on above: Order Comment: Speci men Type: URINE SPECIMEN Ordering Facility: [facility] Address: [address] [place] [address] Performed By: #### 2 6-8 #### [facility] CLIA [id number] [address] [place] [address] [place] Nitrite Ql (U) Negative Normal Negative [facility] Comment on above: Order Comment: Speci men Type: URINE SPECIMEN Ordering Facility: [facility] Address: [address] [place] [address] Performed By: #### 2 4356-8 #### [facility] CLIA [id number] [address] [place] [address] [place] pH (U) 6.0 [pH] Normal 5.0-8.0 [facility] Comment on above: Order Comment: Speci men Type: URINE SPECIMEN Ordering Facility: [facility] Address: [address] [place] [address] Performed By: #### 2 4356-8 #### [facility] CLIA [id number] [address] [place] [address] [place] Protein (U) [Mass/Vol] Negative Normal Negative [facility] Comment on above: Order Comment: Speci men Type: URINE SPECIMEN Ordering Facility: [facility] Address: [address] [place] [address] Performed By: #### 2 4356-8 #### [facility] CLIA [id number] [address] [place] [address] [place] RBC LM.HPF (Urine sed) [#/Area] 11-25 /HPF Abnormal 0-3 /HPF [facility] Comment on above: Order Comment: Speci men Type: URINE SPECIMEN Ordering Facility: [facility] Address: [address] [place] [address] Performed By: #### 2 4356-8 #### [facility] CLIA [id number] [address] [place] [address] [place] Specific gravity (U) [Rel density] 1.015 Normal 1.005-1.030 [facility] Comment on above: Order Comment: Speci men Type: URINE SPECIMEN Ordering Facility: [facility] Address: [address] [place] [address] Performed By: #### 2 4356-8 #### [facility] CLIA [id number] [address] [place] Urobilinogen Ql (U) 0.2 EU/dL Normal 0.2-1.0 EU/dL [facility] Comment on above: Order Comment: Speci men Type: URINE SPECIMEN Ordering Facility: [facility] Address: [address] [place] [address] Performed By: #### 2 4356-8 #### [facility] CLIA [id number] [address] [place] WBC LM.HPF (Urine sed) [#/Area] 0-5 /HPF Normal 0-5 /HPF [facility] Comment on above: Order Comment: Speci men Type: URINE SPECIMEN Ordering Facility: [facility] Address: [address] [place] [address] Performed By: #### 2 4356-8 #### [facility] CLIA [id number] [address] [place] [address] [place] Basic metabolic 2000 panelon 09-06-2024 Anion gap [Moles/Vol] 11 mmol/L 8 - 15 mmol/L [facility] Calcium [Mass/Vol] 8.6 mg/dL 8.5 - 10. 2 mg/dL [facility] Chloride [Moles/Vol] 94 mmol/L Low 98 - 10 7 mmol/L [facility] CO2 [Moles/Vol] 24 mmol/L 22 - 30 mmol/L [facility] Creatinine [Mass/Vol] 1.5 mg/dL High 0.73 - 1.22 mg/dL [facility] GFR/1.73 sq M.predicted among non-blacks MDRD (S/P/Bld) [Vol rate/Area] 50 mL/min/{1.73_m2} Low - PINF [facility] Comment on above: Estimated Glomerular Filtration Rate (eGFR) is calculated using the 2020 CKD-EPI creatinine equation. This equation utilizes serum creatinine, sex, and age as parameters. The creatinine assay has traceable calibration to isotope dilution-mass spectrometry. Refer to KDIGO guidelines for clinical interpretation. In patients with unstable renal function, e.g. those with acute kidney injury, the eGFR may not accurately reflect actual GFR. Glucose [Mass/Vol] 90 mg/dL 74 - 99 mg/dL [facility] Comment on above: The [place] Di[employer] Association (ADA) provides guidance for cutoff values for fasting glucose and random glucose. The ADA defines fasting as no caloric intake for at least 8 hours. Fasting plasma glucose results between 100 to 125 mg/dL indicate increased risk for diabetes (prediabetes). Fasting plasma glucose results greater than or equal to 126 mg/dL meet the criteria for diagnosis of diabetes. In the absence of unequivocal hyperglycemia, results should be confirmed by repeat testing. In a patient with classic symptoms of hyperglycemia or hyperglycemic crisis, random plasma glucose results greater than or equal to 200 mg/dL meet the criteria for diagnosis of diabetes. Reference: Standards of Medical Care in Diabetes 2016, [place] [employer]. Diabetes Care. 2016.39(Suppl 1). Interpretation and review of laboratory results Abnormal [facility] Potassium [Moles/Vol] 3.9 mmol/L 3.7 - 5.1 mmol/L [facility] Sodium [Moles/Vol] 129 mmol/L Low 136 - 144 mmol/L [facility] Urea nitrogen [Mass/Vol] 35 mg/dL High 9 - 24 mg/d L [facility] Anion gap [Moles/Vol] 11 mmol/L Normal 8-15 [facility] Comment on above: Order Comment: Speci men Type: BLOOD SPECIMEN Ordering Facility: [facility] Address: [address] [place] [address] Performed By: #### 2 4321-2 #### [facility] CLIA [id number] [address] [place] [address] [place] Calcium [Mass/Vol] 8.6 mg/dL Normal 8.5-10.2 [facility] Comment on above: Order Comment: Speci men Type: BLOOD SPECIMEN Ordering Facility: [facility] Address: [address] [place] [address] Performed By: #### 2 4321-2 #### [facility] CLIA [id number] [address] [place] [address] [place] Chloride [Moles/Vol] 94 mmol/L Low 98-107 [facility] Comment on above: Order Comment: Speci men Type: BLOOD SPECIMEN Ordering Facility: [facility] Address: [address] [place] [address] Performed By: #### 2 4321-2 #### [facility] CLIA [id number] [address] [place] [address] [place] CO2 [Moles/Vol] 24 mmol/L Normal 22-30 [facility] Comment on above: Order Comment: Speci men Type: BLOOD SPECIMEN Ordering Facility: [facility] Address: [address] [place] [address] Performed By: #### 2 4321-2 #### [facility] CLIA [id number] [address] [place] [address] [place] Creatinine [Mass/Vol] 1.50 mg/dL High 0.73-1.22 [facility] Comment on above: Order Comment: Speci men Type: BLOOD SPECIMEN Ordering Facility: [facility] Address: [address] [place] [address] Performed By: #### 2 4321-2 #### [facility] CLIA [id number] [address] [place] [address] [place] Creatinine and Glomerular filtration rate.predicted panel (S/P/Bld) 50 mL/min/1.73m??? Low >=60 [facility] Comment on above: Order Comment: Yojana riggins Type: BLOOD SPECIMEN Ordering Facility: [facility] Address: [address] [place] [address] Result Comment: Apple mated Glomerular Filtration Rate (eGFR) is calculated using the 2020 CKD-EPI creatinine equation. This equation utilizes serum creatinine, sex, and age as parameters. The creatinine assay has traceable calibration to isotope dilution-mass spectrometry. Refer to KDIGO guidelines for clinical interpretation. In patients with unstable renal function, e.g. those with acute kidney injury, the eGFR may not accurately reflect actual GFR. Performed By: #### 2 4321-2 #### [facility] CLIA [id number] [address] [place] [address] [place] Glucose [Mass/Vol] 90 mg/dL Normal 74-99 [facility] Comment on above: Order Comment: Yojana riggins Type: BLOOD SPECIMEN Ordering Facility: [facility] Address: [address] [place] [address] Result Comment: The [place] Diabetes Association (ADA) provides guidance for cutoff values for fasting glucose and random glucose. The ADA defines fasting as no caloric intake for at least 8 hours. Fasting plasma glucose results between 100 to 125 mg/dL indicate increased risk for diabetes (prediabetes). Fasting plasma glucose results greater than or equal to 126 mg/dL meet the criteria for diagnosis of diabetes. In the absence of unequivocal hyperglycemia, results should be confirmed by repeat testing. In a patient with classic symptoms of hyperglycemia or hyperglycemic crisis, random plasma glucose results greater than or equal to 200 mg/dL meet the criteria for diagnosis of diabetes. Reference: Standards of Medical Care in Diabetes 2016, [place] [employer]. Diabetes Care. 2016.39(Suppl 1). Performed By: #### 2 4321-2 #### [facility] CLIA [id number] [address] [place] [id number] [place] Potassium [Moles/Vol] 3.9 mmol/L Normal 3.7-5.1 [facility] Comment on above: Order Comment: Speci men Type: BLOOD SPECIMEN Ordering Facility: [facility] Address: [address] [place] [address] Performed By: #### 2 4321-2 #### [facility] CLIA [id number] [address] Sodium [Moles/Vol] 129 mmol/L Low 136-144 [facility] Comment on above: Order Comment: Speci men Type: BLOOD SPECIMEN Ordering Facility: [facility] Address: [address] [place] [address] Performed By: #### 2 4321-2 #### [facility] CLIA [id number] [address] [place] Urea nitrogen [Mass/Vol] 35 mg/dL High 9-24 [facility] Comment on above: Order Comment: Speci men Type: BLOOD SPECIMEN Ordering Facility: [facility] Address: [address] [place] [address] Performed By: #### 2 4321-2 #### [facility] CLIA [id number] [address] [place] CBC panel Auto (Bld)on 09-06 Erythrocyte distribution width (RBC) [Ratio] 18.6 % High 11.5 - 15.0 % [facility] Hematocrit (Bld) [Volume fraction] 22.2 % Low 39.0 - 51.0 % [facility] Hemoglobin (Bld) [Mass/Vol] 7.4 g/dL Low 13.0 - 17.0 g/dL [facility] Interpretation and review of laboratory results Abnormal [facility] MCH (RBC) [Entitic mass] 30.8 pg 26. 0 - 34.0 pg [facility] MCHC (RBC) [Mass/Vol] 33.3 g/dL 30.5 - 36.0 g/dL [facility] MCV (RBC) [Entitic vol] 92.5 fL 80.0 - 100.0 fL [facility] Nucleated RBC (Bld) [#/Vol] NINF [facility] Platelet mean volume (Bld) [Entitic vol] 8.7 fL Low 9.0 - 12.7 fL [facility] Platelets (Bld) [#/Vol] 209 10*3/uL [facility] RBC (Bld) [#/Vol] 2.4 10*6/uL Low 4.20 - 6.0 0 m/uL [facility] WBC (Bld) [#/Vol] 8.3 10*3/uL [facility] Erythrocyte distribution width (RBC) [Ratio] 18.6 % High 11.5-15.0 [facility] Comment on above: Order Comment: Speci men Type: BLOOD SPECIMEN Ordering Facility: [facility] Address: [address] [place] [address] Performed By: #### 2 4321-2 #### [facility] CLIA [id number] [address] [facility] Hematocrit (Bld) [Volume fraction] 22.2 % Low 39.0-51.0 [facility] Comment on above: Order Comment: Simrani gilson Type: BLOOD SPECIMEN Ordering Facility: [facility] Address: [address] [place] [address] Performed By: #### 2 4321-2 #### [facility] CLIA [id number] [address] [place] Hemoglobin (Bld) [Mass/Vol] 7.4 g/dL Low 13.0-17.0 [facility] Comment on above: Order Comment: Speci men Type: BLOOD SPECIMEN Ordering Facility: [facility] Address: [address] [place] [address] Performed By: #### 2 4321-2 #### [facility] CLIA [id number] [address] STATES [facility] MCH (RBC) [Entitic mass] 30.8 pg Normal 26.0-34.0 [facility] Comment on above: Order Comment: Speci men Type: BLOOD SPECIMEN Ordering Facility: [facility] Address: [address] [place] [address] Performed By: #### 2 4321-2 #### [facility] CLIA [id number] [address] [place] MCHC (RBC) [Mass/Vol] 33.3 g/dL Normal 30.5-36.0 [facility] Comment on above: Order Comment: Speci men Type: BLOOD SPECIMEN Ordering Facility: [facility] Address: [address] [place] [address] Performed By: #### 2 4321-2 #### [facility] CLIA [id number] [address] [place] [address] [place] MCV (RBC) [Entitic vol] 92.5 fL Normal 80.0-100.0 [facility] Comment on above: Order Comment: Speci men Type: BLOOD SPECIMEN Ordering Facility: [facility] Address: [address] [place] [address] Performed By: #### 2 4321-2 #### [facility] CLIA [id number] [address] [place] [address] [place] Nucleated RBC (Bld) [#/Vol] 10*3/uL Normal <0.01 [facility] Comment on above: Order Comment: Speci men Type: BLOOD SPECIMEN Ordering Facility: [facility] Address: [address] [place] [address] Performed By: #### 2 4321-2 #### [facility] CLIA [id number] [address] [place] [address] [place] Platelet mean volume (Bld) [Entitic vol] 8.7 fL Low 9.0-12.7 [facility] Comment on above: Order Comment: Speci men Type: BLOOD SPECIMEN Ordering Facility: [facility] Address: [address] [place] [address] Performed By: #### 2 4321-2 #### [facility] CLIA [id number] [address] [place] [address] [place] Platelets (Bld) [#/Vol] 209 10*3/uL Normal 150-400 [facility] Comment on above: Order Comment: Speci men Type: BLOOD SPECIMEN Ordering Facility: [facility] Address: [address] [place] [address] Performed By: #### 2 4321-2 #### [facility] CLIA [id number] [address] [place] [address] [place] RBC (Bld) [#/Vol] 2.40 10*6/uL Low 4.20-6.00 [facility] Comment on above: Order Comment: Speci men Type: BLOOD SPECIMEN Ordering Facility: [facility] Address: [address] [place] [address] Performed By: #### 2 4321-2 #### [facility] CLIA [id number] [address] [place] [address] [place] WBC (Bld) [#/Vol] 8.30 10*3/uL Normal 3.70-11.00 [facility] Comment on above: Order Comment: Speci men Type: BLOOD SPECIMEN Ordering Facility: [facility] Address: [address] [place] [address] Performed By: #### 2 4321-2 #### [facility] CLIA [id number] [address] [place] NT PRO BNPon 09-06-2024 Natriuretic peptide.B prohormone N-Terminal [Mass/Vol] 8521 pg/mL High NINF - 125 pg/mL [facility] NT-proBNP SerPl-mCncon 09-06 Natriuretic peptide.B prohormone N-Terminal [Mass/Vol] 8521 pg/mL High <125 [facility] Comment on above: Order Comment: Speci men Type: BLOOD SPECIMEN Ordering Facility: [facility] Address: [address] [place] [address] Performed By: #### 2 4321-2 #### [facility] CLIA [id number] [address] [place] [address] [place] [facility] [place] Natriuretic peptide.B prohor j carlos N-Terminal [Mass/Vol]on 09-06-2024 Interpretation and review of laboratory results Abnormal [facility] Basic metabolic 2000 panelon 09-05-2024 Anion gap [Moles/Vol] 10 mmol/L Normal 8-[address] [facility] Comment on above: Order Comment: Speci men Type: BLOOD SPECIMENOrdering Facility: [facility] Address: [address] [place] [address] Performed By: #### 2 4321-2 ####[facility] [id number] [place] [address] [place] Calcium [Mass/Vol] 8.8 mg/dL Normal 8.5-10.2 [facility] Comment on above: Order Comment: Speci men Type: BLOOD SPECIMENOrdering Facility: [facility] Address: [address] [place] [address] Performed By: #### 2 4321-2 ####[facility] [id number] [place] [address] [place] Chloride [Moles/Vol] 95 mmol/L Low 98-107 [facility] Comment on above: Order Comment: Speci men Type: BLOOD SPECIMENOrdering Facility: [facility] Address: [address] [place] [address] Performed By: #### 2 4321-2 ####[facility] [id number] [address] [place] CO2 [Moles/Vol] 24 mmol/L Normal 22-30 [facility] Comment on above: Order Comment: Speci men Type: BLOOD SPECIMENOrdering Facility: [facility] Address: [address] [place] [address] Performed By: #### 2 4321-2 ####[facility]ORY[facility] [id number] [address] [place] Creatinine [Mass/Vol] 1.54 mg/dL High 0.73-1.22 [facility] Comment on above: Order Comment: Speci men Type: BLOOD SPECIMENOrdering Facility: [facility] Address: [address] [place] [address] Performed By: #### 2 4321-2 ####[facility]ORYCLIA [id number] [address] [place] Creatinine and Glomerular filtration rate.predicted panel (S/P/Bld) 49 mL/min/1.73m??? Low >=60 [facility] Comment on above: Order Comment: Speci men Type: BLOOD SPECIMENOrdering Facility: [facility] Address: [address] [place] [address] Result Comment: Apple mated Glomerular Filtration Rate (eGFR) is calculated using the 2020 CKD-EPI creatinine equation. This equation utilizes serum creatinine, sex, and age as parameters. The creatinine assay has traceable calibration to isotope dilution-mass spectrometry. Refer to KDIGO guidelines for clinical interpretation. In patients with unstable renal function, e.g. those with acute kidney injury, the eGFR may not accurately reflect actual GFR. Performed By: #### 2 4321-2 ####[facility]ORYCLIA [id number] [place] [address] [place] Glucose [Mass/Vol] 89 mg/dL Normal 74-99 [facility] Comment on above: Order Comment: Yojana riggins Type: BLOOD SPECIMENOrdering Facility: [facility] Address: [address] [place] [address] Result Comment: The [place] Diabetes Association (ADA) provides guidance for cutoff values for fasting glucose and random glucose. The ADA defines fasting as no caloric intake for at least 8 hours. Fasting plasma glucose results between 100 to 125 mg/dL indicate increased risk for diabetes (prediabetes).Fasting plasma glucose results greater than or equal to 126 mg/dL meet the criteria for diagnosis of diabetes. In the absence of unequivocal hyperglycemia, results should be confirmed by repeat testing. In a patient with classic symptoms of hyperglycemia or hyperglycemic crisis, random plasma glucose results greater than or equal to 200 mg/dL meet the criteria for diagnosis of diabetes.Reference: Standards of Medical Care in Diabetes 2016, [place] [employer]. Diabetes Care. 2016.39(Suppl 1). Performed By: #### 2 4321-2 ####[facility]ORYCLIA [id number] [place] [address] [place] Potassium [Moles/Vol] 4.0 mmol/L Normal 3.7-5.1 [facility] Comment on above: Order Comment: Yojana riggins Type: BLOOD SPECIMENOrdering Facility: [facility] Address: [address] [place] [id number] Performed By: #### 2 4321-2 ####[facility] LABORATORYCLIA [id number] [place] [id number] [place] Sodium [Moles/Vol] 129 mmol/L Low 136-144 [facility] Comment on above: Order Comment: Speci men Type: BLOOD SPECIMENOrdering Facility: [facility] Address: [address] [place] [address] Performed By: #### 2 4321-2 ####[facility] LABORATORYCLIA [id number] [place] [address] [place] Urea nitrogen [Mass/Vol] 36 mg/dL High 9-24 [facility] Comment on above: Order Comment: Speci men Type: BLOOD SPECIMENOrdering Facility: [facility] Address: [address] [place] [address] Performed By: #### 2 4321-2 ####[facility] LABORATORYCLIA [id number] [address] [place] CASE MANAGEMon 09-05-2024 CASE MANAGEM Normal [facility] CASE MANAGEM Normal [facility] CBC panel Auto (Bld)on 09-05 Erythrocyte distribution width (RBC) [Ratio] 18.3 % High 11.5-15.0 [facility] Comment on above: Order Comment: Speci men Type: BLOOD SPECIMENOrdering Facility: [facility] Address: [address] [place] [address] Performed By: #### 5 8410-2 ####[facility]ORATORYCLIA [id number] [place] [address] [place] Hematocrit (Bld) [Volume fraction] 23.5 % Low 39.0-51.0 [facility] Comment on above: Order Comment: Speci men Type: BLOOD SPECIMENOrdering Facility: [facility] Address: [address] [place] [address] Performed By: #### 5 8410-2 ####[facility] LABORATORYCLIA [id number] [address] [place] Hemoglobin (Bld) [Mass/Vol] 7.6 g/dL Low 13.0-17.0 [facility] Comment on above: Order Comment: Speci men Type: BLOOD SPECIMENOrdering Facility: [facility] Address: [address] [place] [address] Performed By: #### 5 8410-2 ####[facility] LABORATORYCLIA [id number] [address] MCH (RBC) [Entitic mass] 29.9 pg Normal 26.0-34.0 [facility] Comment on above: Order Comment: Speci men Type: BLOOD SPECIMENOrdering Facility: [facility] Address: [address] [place] [address] Performed By: #### 5 8410-2 ####[facility] LABORATORYCLIA [id number] [address] MCHC (RBC) [Mass/Vol] 32.3 g/dL Normal 30.5-36.0 [facility] Comment on above: Order Comment: Speci men Type: BLOOD SPECIMENOrdering Facility: [facility] Address: [address] [place] [address] Performed By: #### 5 8410-2 ####[facility] LABORATORYCLIA [id number] [address] MCV (RBC) [Entitic vol] 92.5 fL Normal 80.0-100.0 [facility] Comment on above: Order Comment: Speci men Type: BLOOD SPECIMENOrdering Facility: [facility] Address: [address] [place] [address] Performed By: #### 5 8410-2 ####[facility] LABORATORYCLIA [id number] [address] Nucleated RBC (Bld) [#/Vol] 10*3/uL Normal <0.01 [facility] Comment on above: Order Comment: Speci men Type: BLOOD SPECIMENOrdering Facility: [facility] Address: [address] [place] [address] Performed By: #### 5 8410-2 ####[facility] LABORATORYCLIA [id number] [address] Platelet mean volume (Bld) [Entitic vol] 9.0 fL Normal 9.0-12.7 [facility] Comment on above: Order Comment: Speci men Type: BLOOD SPECIMENOrdering Facility: [facility] Address: [address] [place] [address] Performed By: #### 5 8410-2 ####[facility] LABORATORYCLIA [id number] [address] [place] Platelets (Bld) [#/Vol] 220 10*3/uL Normal 150-400 [facility] Comment on above: Order Comment: Speci men Type: BLOOD SPECIMENOrdering Facility: [facility] Address: [address] [place] [address] Performed By: #### 5 8410-2 ####[facility]STERCLIA [id number] [address] STATES [facility] RBC (Bld) [#/Vol] 2.54 10*6/uL Low 4.20-6.00 [facility] Comment on above: Order Comment: Speci men Type: BLOOD SPECIMENOrdering Facility: [facility] Address: [address] [place] [address] Performed By: #### 5 8410-2 ####[facility] LABORATORYCLIA [id number] [address] WBC (Bld) [#/Vol] 10.65 10*3/uL Normal 3.70-11.00 [facility] Comment on above: Order Comment: Speci men Type: BLOOD SPECIMENOrdering Facility: [facility] Address: [address] [place] [address] Performed By: #### 5 8410-2 ####[facility] LABORATORYCLIA [id number] [address] [place] CNDSon 09-05-2024 CNDS Normal [facility] CNPNon 09-05-2024 CNPN Telephone (HCSIND) ARIS ATKINS ([id number]) 1955 M Date Time Provider Department 09/05/24 GABRIELA GARDUNO During your visit today, we recorded the following information about you: Allergies As of Date: 09/05/2024 (No Known Allergies) Date Reviewed: 09/05/2024 Reviewed by: Krystyna Sands, BERT - Fully Assessed Reason for Visit: Home Care [4073] Cmt: Confirmation Call Prescriptions as of 09/05/2024 - atorvastatin (LIPITOR) 20 mg tablet Take 1 tablet by mouth once daily. - JARDIANCE 25 mg tablet Take 25 mg by mouth once daily. - glipiZIDE (GLUCOTROL) 5 mg tablet Take 1 tablet by mouth every 12 hours. - cholecalciferol (VITAMIN D3) 5,000 unit tab Take 5,000 Units by mouth. M-W-F - MEDICATION, NON-DATABASE Take 1 tablet by mouth once daily. Test-boost testosterone Max supplement - DYE COLORIST DYER THYROID 120 mg tablet Take 120 mg by mouth once daily. - Ascorbic Acid 1,000 mg tablet Take 1,000 mg by mouth once daily. - ORGAN CONCENTRATES (ADRENAL ORAL) Take 1 capsule by mouth once daily. - selenium Take by mouth once daily. - IODINE, KELP, ORAL Take 0.5 tablets by mouth once daily. Facility-Administered Medications as of 09/05/2024 - furosemide 40 mg tab(s) (LASIX) - simethicone, chewable 80 mg tab(s) (MYLICON) - melatonin 3 mg tab(s) - senna-docusate 8.6-50 mg 2 tablet (SENNA-S) - metoprolol tartrate (short acting) 12.5 mg tab(s) (LOPRESSOR) - folic acid 1 mg tab(s) - insulin glargine 25 Units pen (long acting) - insulin lispro injection (rapid acting) (ADMElog) - dextrose 15 gram/32 mL 15 g (TRUEPLUS) - glucagon 1 mg injection - dextrose 10% iv bolus - thyroid (pork) 120 mg tab(s) - polyethylene glycol 3350 17 g packet - pantoprazole DR 40 mg tab(s) (PROTONIX) - oxyCODONE IR 5-10 mg tab(s) (ROXICODONE) - insulin lispro 6 Units injection (rapid acting) (ADMElog) - lidocaine 4 % 1 patch (SALONPAS) - lidocaine patch - REMOVE - lidocaine - VERIFY PATCH - atorvastatin 40 mg tab(s) (LIPITOR) - enoxaparin 40 mg injection (LOVENOX) - dextrose 10% iv bolus - albuterol 2.5 mg /3 mL (0.083 %) 2.5 mg (PROVENTIL) - aspirin 162 mg chewable tab(s) - ondansetron (PF) 4 mg injection (ZOFRAN) - acetaminophen 1,000 mg tab(s) (TYLENOL) - magnesium oxide 400 mg tab(s) (MAG-OX) - methocarbamol 500 mg tab(s) (ROBAXIN) Meds Comments as of 12/20/2021: 12/20/21 The medications are managed by this patient by: PATIENT Ishan Rahat, COT Problem List As Of Date 09/05/2024 Noted Resolved Umbilical hernia without obstruction or gangren*06/06/2017 06/19/2017 Cataract, nuclear sclerotic, both eyes [H25.13] 10/14/2020 Cortical cataract of both eyes [H26.9] 10/14/2020 Vitreous syneresis, bilateral [H43.393] 10/14/2020 Myopia of both eyes [H52.13] 10/14/2020 Regular astigmatism of both eyes [H52.223] 10/14/2020 Posterior subcapsular polar age-related catarac*11/17/2021 NSTEMI (non-ST elevated myocardial infarction) *08/15/2024 Type 2 diabetes mellitus with hyperglycemia (HC*08/17/2024 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] 08/17/2024 Preoperative respiratory examination [Z01.811] 08/21/2024 Restrictive lung disease [J98.4] 08/21/2024 Coronary artery disease due to lipid rich plaqu*08/21/2024 Closed fracture of eighth thoracic vertebra wit*08/21/2024 Ileus (HCC) [K56.7] 08/23/2024 Malnutrition of mild degree (HCC) [E44.1] 08/23/2024 OLGA (acute kidney injury) [N17.9] 08/24/2024 Postprocedural hypotension [I95.81] 08/31/2024 S/P CABG (coronary artery bypass graft) [Z95.1] 08/31/2024 Obesity, Class I, BMI 30-34.9 [E66.811] 09/02/2024 Encounter Status:Closed by GABRIELA GARDUNO on 09/05/24 Normal [facility] NUTRITIONon 09-05-2024 NUTRITION Normal [facility] PT EDon 09-05-2024 PT ED Normal [facility] THERAPY NTon 09-05-2024 THERAPY NT Normal [facility] XR CHEST 1V FRONTALon 2024 XR CHEST 1V FRONTAL Normal [facility] Basic metabolic 2000 panelon 09-04-2024 Anion gap [Moles/Vol] 11 mmol/L Normal 8-15 [facility] Comment on above: Order Comment: Speci men Type: BLOOD SPECIMENOrdering Facility: [facility] Address: [address] [place] [address] Performed By: #### 2 4321-2 ####[facility] LABORATORYCLIA [id number] [place] [address] [place] Calcium [Mass/Vol] 8.5 mg/dL Normal 8.5-10.2 [facility] Comment on above: Order Comment: Speci men Type: BLOOD SPECIMENOrdering Facility: [facility] Address: [address] [place] [address] Performed By: #### 2 4321-2 ####[facility] LABORATORYCLIA [id number] [place] [address] [place] Chloride [Moles/Vol] 93 mmol/L Low 98-107 [facility] Comment on above: Order Comment: Speci men Type: BLOOD SPECIMENOrdering Facility: [facility] Address: [address] [place] [address] Performed By: #### 2 4321-2 ####[facility] LABORATORYCLIA [id number] [address] STATES OF [facility] CO2 [Moles/Vol] 24 mmol/L Normal 22-30 [facility] Comment on above: Order Comment: Speci men Type: BLOOD SPECIMENOrdering Facility: [facility] Address: [address] [place] [address] Performed By: #### 2 4321-2 ####[facility] LABORATORYCLIA [id number] [address] [place] Creatinine [Mass/Vol] 1.56 mg/dL High 0.73-1.22 [facility] Comment on above: Order Comment: Speci men Type: BLOOD SPECIMENOrdering Facility: [facility] Address: [address] [place] [address] Performed By: #### 2 4321-2 ####[facility]STERCLIA [id number] [address] Creatinine and Glomerular filtration rate.predicted panel (S/P/Bld) 48 mL/min/1.73m??? Low >=60 [facility] Comment on above: Order Comment: Speci men Type: BLOOD SPECIMENOrdering Facility: [facility] Address: [address] [place] [address] Result Comment: Apple mated Glomerular Filtration Rate (eGFR) is calculated using the 2020 CKD-EPI creatinine equation. This equation utilizes serum creatinine, sex, and age as parameters. The creatinine assay has traceable calibration to isotope dilution-mass spectrometry. Refer to KDIGO guidelines for clinical interpretation. In patients with unstable renal function, e.g. those with acute kidney injury, the eGFR may not accurately reflect actual GFR. Performed By: #### 2 4321-2 ####[facility]ORATORYCLIA [id number] [address] Glucose [Mass/Vol] 81 mg/dL Normal 74-99 [facility] Comment on above: Order Comment: Speci men Type: BLOOD SPECIMENOrdering Facility: [facility] Address: [address] [place] [address] Result Comment: The [place] Diabetes [employer] (ADA) provides guidance for cutoff values for fasting glucose and random glucose. The ADA defines fasting as no caloric intake for at least 8 hours. Fasting plasma glucose results between 100 to 125 mg/dL indicate increased risk for diabetes (prediabetes).Fasting plasma glucose results greater than or equal to 126 mg/dL meet the criteria for diagnosis of diabetes. In the absence of unequivocal hyperglycemia, results should be confirmed by repeat testing. In a patient with classic symptoms of hyperglycemia or hyperglycemic crisis, random plasma glucose results greater than or equal to 200 mg/dL meet the criteria for diagnosis of diabetes.Reference: Standards of Medical Care in Diabetes 2016, [place] [employer]. Diabetes Care. 2016.39(Suppl 1). Performed By: #### 2 4321-2 ####[facility]ORATORYCLIA [id number] [address] [place] Potassium [Moles/Vol] 4.1 mmol/L Normal 3.7-5.1 [facility] Comment on above: Order Comment: Speci men Type: BLOOD SPECIMENOrdering Facility: [facility] Address: [address] [place] [address] Performed By: #### 2 4321-2 ####[facility]ORATORYCLIA [id number] [address] STATES [facility] Sodium [Moles/Vol] 128 mmol/L Low 136-144 [facility] Comment on above: Order Comment: Speci men Type: BLOOD SPECIMENOrdering Facility: [facility] Address: [address] [place] [address] Performed By: #### 2 4321-2 ####[facility]ORATORYCLIA [id number] [address] [place] Urea nitrogen [Mass/Vol] 39 mg/dL High 9-24 [facility] Comment on above: Order Comment: Speci men Type: BLOOD SPECIMENOrdering Facility: [facility] Address: [address] [place] [address] Performed By: #### 2 4321-2 ####[facility] LABORATORYCLIA [id number] [address] CASE MANAGEMon 09-04-2024 CASE MANAGEM Normal [facility] CBC panel Auto (Bld)on 09-04 Erythrocyte distribution width (RBC) [Ratio] 17.6 % High 11.5-15.0 [facility] Comment on above: Order Comment: Speci men Type: BLOOD SPECIMENOrdering Facility: [facility] Address: [address] [place] [address] Performed By: #### 5 8410-2 ####[facility] LABORATORYCLIA [id number] [address] Hematocrit (Bld) [Volume fraction] 22.7 % Low 39.0-51.0 [facility] Comment on above: Order Comment: Speci men Type: BLOOD SPECIMENOrdering Facility: [facility] Address: [address] [place] [address] Performed By: #### 5 8410-2 ####[facility]ORATORYCLIA [id number] [address] Hemoglobin (Bld) [Mass/Vol] 7.4 g/dL Low 13.0-17.0 [facility] Comment on above: Order Comment: Speci men Type: BLOOD SPECIMENOrdering Facility: [facility] Address: [address] [place] [address] Performed By: #### 5 8410-2 ####[facility]ORATORYCLIA [id number] [address] MCH (RBC) [Entitic mass] 30.6 pg Normal 26.0-34.0 [facility] Comment on above: Order Comment: Speci men Type: BLOOD SPECIMENOrdering Facility: [facility] Address: [address] [place] [address] Performed By: #### 5 8410-2 ####[facility]ORATORYCLIA [id number] [address] STATES OF [facility] MCHC (RBC) [Mass/Vol] 32.6 g/dL Normal 30.5-36.0 [facility] Comment on above: Order Comment: Speci men Type: BLOOD SPECIMENOrdering Facility: [facility] Address: [address] [place] [address] Performed By: #### 5 8410-2 ####[facility]ORATORYCLIA [id number] [address] MCV (RBC) [Entitic vol] 93.8 fL Normal 80.0-100.0 A [facility] Comment on above: Order Comment: Speci men Type: BLOOD SPECIMENOrdering Facility: [facility] Address: [address] [place] [address] Performed By: #### 5 8410-2 ####[facility]ORATORYCLIA [id number] [address] Nucleated RBC (Bld) [#/Vol] 0.02 10*3/uL High <0.01 [facility] Comment on above: Order Comment: Speci men Type: BLOOD SPECIMENOrdering Facility: [facility] Address: [address] [place] [address] Performed By: #### 5 8410-2 ####[facility]ORATORYCLIA [id number] [address] Platelet mean volume (Bld) [Entitic vol] 9.3 fL Normal 9.0-12.7 [facility] Comment on above: Order Comment: Speci men Type: BLOOD SPECIMENOrdering Facility: [facility] Address: [address] [place] [address] Performed By: #### 5 8410-2 ####[facility]ORATORYCLIA [id number] [address] Platelets (Bld) [#/Vol] 195 10*3/uL Normal 150-400 [facility] Comment on above: Order Comment: Speci men Type: BLOOD SPECIMENOrdering Facility: [facility] Address: [address] [place] [address] Performed By: #### 5 8410-2 ####[facility] LABORATORYCLIA [id number] [place] [address] [place] RBC (Bld) [#/Vol] 2.42 10*6/uL Low 4.20-6.00 [facility] Comment on above: Order Comment: Speci men Type: BLOOD SPECIMENOrdering Facility: [facility] Address: [address] [place] [address] Performed By: #### 5 8410-2 ####[facility]ORATORYCLIA [id number] [place] [address] [place] WBC (Bld) [#/Vol] 10.66 10*3/uL Normal 3.70-11.00 [facility] Comment on above: Order Comment: Speci men Type: BLOOD SPECIMENOrdering Facility: [facility] Address: [address] [place] [address] Performed By: #### 5 8410-2 ####[facility] LABORATORYCLIA [id number] [address] CONSULT PROGon 09-04-2024 CONSULT PROG Normal [facility] PT EDon 09-04-2024 PT ED Normal [facility] THERAPY NTon 09-04-2024 THERAPY NT Normal [facility] XR CHEST 2V FRONTAL/LATon XR CHEST 2V FRONTAL/LAT Normal A [facility] Basic metabolic 2000 panelon 09-03-2024 Anion gap [Moles/Vol] 12 mmol/L Normal 8-15 [facility] Comment on above: Order Comment: Speci men Type: BLOOD SPECIMENOrdering Facility: [facility] Address: [address] [place] [address] Performed By: #### 2 4321-2 ####[facility]ORATORYCLIA [id number] [address] STATES OF [facility] Calcium [Mass/Vol] 8.8 mg/dL Normal 8.5-10.2 [facility] Comment on above: Order Comment: Speci men Type: BLOOD SPECIMENOrdering Facility: [facility] Address: [address] [place] [address] Performed By: #### 2 4321-2 ####[facility]ORATORYCLIA [id number] [address] [place] Chloride [Moles/Vol] 94 mmol/L Low 98-107 [facility] Comment on above: Order Comment: Speci men Type: BLOOD SPECIMENOrdering Facility: [facility] Address: [address] [place] [address] Performed By: #### 2 4321-2 ####[facility]ORATORYCLIA [id number] [address] STATES OF [facility] CO2 [Moles/Vol] 22 mmol/L Normal 22-30 [facility] Comment on above: Order Comment: Speci men Type: BLOOD SPECIMENOrdering Facility: [facility] Address: [address] [place] [address] Performed By: #### 2 4321-2 ####[facility]STERCLIA [id number] [address] STATES OF [facility] Creatinine [Mass/Vol] 1.47 mg/dL High 0.73-1.22 [facility] Comment on above: Order Comment: Speci men Type: BLOOD SPECIMENOrdering Facility: [facility] Address: [address] [place] [address] Performed By: #### 2 4321-2 ####[facility]ORATORYCLIA [id number] [address] Creatinine and Glomerular filtration rate.predicted panel (S/P/Bld) 51 mL/min/1.73m??? Low >=60 [facility] Comment on above: Order Comment: Speci men Type: BLOOD SPECIMENOrdering Facility: [facility] Address: [address] [place] [address] Result Comment: Apple mated Glomerular Filtration Rate (eGFR) is calculated using the 2020 CKD-EPI creatinine equation. This equation utilizes serum creatinine, sex, and age as parameters. The creatinine assay has traceable calibration to isotope dilution-mass spectrometry. Refer to KDIGO guidelines for clinical interpretation. In patients with unstable renal function, e.g. those with acute kidney injury, the eGFR may not accurately reflect actual GFR. Performed By: #### 2 4321-2 ####[facility]ATORYCLIA [id number] [place] [address] [place] Glucose [Mass/Vol] 107 mg/dL High 74-99 [facility] Comment on above: Order Comment: Speci men Type: BLOOD SPECIMENOrdering Facility: [facility] Address: [address] [place] [address] Result Comment: The [place] Diabetes [employer] (ADA) provides guidance for cutoff values for fasting glucose and random glucose. The ADA defines fasting as no caloric intake for at least 8 hours. Fasting plasma glucose results between 100 to 125 mg/dL indicate increased risk for diabetes (prediabetes).Fasting plasma glucose results greater than or equal to 126 mg/dL meet the criteria for diagnosis of diabetes. In the absence of unequivocal hyperglycemia, results should be confirmed by repeat testing. In a patient with classic symptoms of hyperglycemia or hyperglycemic crisis, random plasma glucose results greater than or equal to 200 mg/dL meet the criteria for diagnosis of diabetes.Reference: Standards of Medical Care in Diabetes 2016, [place] [employer]. Diabetes Care. 2016.39(Suppl 1). Performed By: #### 2 4321-2 ####[facility]ORATORYCLIA [id number] [place] [address] [place] Potassium [Moles/Vol] 4.6 mmol/L Normal 3.7-5.1 [facility] Comment on above: Order Comment: Yojana gilson Type: BLOOD SPECIMENOrdering Facility: [facility] Address: [address] [place] [address] Performed By: #### 2 4321-2 ####[facility]ATORYCLIA [id number] [place] [address] [place] Sodium [Moles/Vol] 128 mmol/L Low 136-144 [facility] Comment on above: Order Comment: Speci men Type: BLOOD SPECIMENOrdering Facility: [facility] Address: [address] [place] [address] Performed By: #### 2 4321-2 ####[facility]ATORYCLIA [id number] [place] [address] [place] Urea nitrogen [Mass/Vol] 37 mg/dL High 9-24 [facility] Comment on above: Order Comment: Speci men Type: BLOOD SPECIMENOrdering Facility: [facility] Address: [address] [place] [address] Performed By: #### 2 4321-2 ####[facility]ORATORYCLIA [id number] [place] [id number] [place] CASE MANAGEMon 09-03-2024 CASE MANAGEM Normal [facility] CBC panel Auto (Bld)on 09-03 Erythrocyte distribution width (RBC) [Ratio] 17.7 % High 11.5-15.0 [facility] Comment on above: Order Comment: Speci men Type: BLOOD SPECIMENOrdering Facility: [facility] Address: [address] [place] [address] Performed By: #### 5 8410-2 ####[facility]ATORYCLIA [id number] [address] [place] Hematocrit (Bld) [Volume fraction] 23.7 % Low 39.0-51.0 [facility] Comment on above: Order Comment: Speci men Type: BLOOD SPECIMENOrdering Facility: [facility] Address: [address] [place] [address] Performed By: #### 5 8410-2 ####[facility]ATORYCLIA [id number] [address] [place] Hemoglobin (Bld) [Mass/Vol] 7.9 g/dL Low 13.0-17.0 [facility] Comment on above: Order Comment: Speci men Type: BLOOD SPECIMENOrdering Facility: [facility] Address: [address] [place] [address] Performed By: #### 5 8410-2 ####[facility] LABORATORYCLIA [id number] [address] [place] MCH (RBC) [Entitic mass] 30.5 pg Normal 26.0-34.0 [facility] Comment on above: Order Comment: Speci men Type: BLOOD SPECIMENOrdering Facility: [facility] Address: [address] [place] [address] Performed By: #### 5 8410-2 ####[facility] LABORATORYCLIA [id number] [address] MCHC (RBC) [Mass/Vol] 33.3 g/dL Normal 30.5-36.0 [facility] Comment on above: Order Comment: Speci men Type: BLOOD SPECIMENOrdering Facility: [facility] Address: [address] [place] [address] Performed By: #### 5 8410-2 ####[facility] LABORATORYCLIA [id number] [address] MCV (RBC) [Entitic vol] 91.5 fL Normal 80.0-100.0 [facility] Comment on above: Order Comment: Speci men Type: BLOOD SPECIMENOrdering Facility: [facility] Address: [address] [place] [address] Performed By: #### 5 8410-2 ####[facility] LABORATORYCLIA [id number] [address] Nucleated RBC (Bld) [#/Vol] 0.02 10*3/uL High <0.01 [facility] Comment on above: Order Comment: Speci men Type: BLOOD SPECIMENOrdering Facility: [facility] Address: [address] [place] [address] Performed By: #### 5 8410-2 ####[facility] LABORATORYCLIA [id number] [address] Platelet mean volume (Bld) [Entitic vol] 9.1 fL Normal 9.0-12.7 [facility] Comment on above: Order Comment: Speci men Type: BLOOD SPECIMENOrdering Facility: [facility] Address: [address] [place] [address] Performed By: #### 5 8410-2 ####[facility] LABORATORYCLIA [id number] [address] [place] Platelets (Bld) [#/Vol] 174 10*3/uL Normal 150-400 [facility] Comment on above: Order Comment: Speci men Type: BLOOD SPECIMENOrdering Facility: [facility] Address: [address] [place] [address] Performed By: #### 5 8410-2 ####[facility] LABORATORYCLIA [id number] [place] [address] [place] RBC (Bld) [#/Vol] 2.59 10*6/uL Low 4.20-6.00 [facility] Comment on above: Order Comment: Speci men Type: BLOOD SPECIMENOrdering Facility: [facility] Address: [address] [place] [address] Performed By: #### 5 8410-2 ####[facility] LABORATORYCLIA [id number] [place] [address] [place] WBC (Bld) [#/Vol] 14.24 10*3/uL High 3.70-11.00 [facility] Comment on above: Order Comment: Speci men Type: BLOOD SPECIMENOrdering Facility: [facility] Address: [address] [place] [address] Performed By: #### 5 8410-2 ####[facility] LABORATORYCLIA [id number] [address] [place] CONSULT PROGon 09-03-2024 CONSULT PROG Normal [facility] PT EDon 09-03-2024 PT ED Normal [facility] THERAPY NTon 09-03-2024 THERAPY NT Normal [facility] THERAPY NT Normal [facility] XR CHEST 1V FRONTALon 2024 XR CHEST 1V FRONTAL Normal [facility] Basic metabolic 2000 panelon 09-02-2024 Anion gap [Moles/Vol] 7 mmol/L Low 8-15 [facility] Comment on above: Order Comment: Speci men Type: BLOOD SPECIMENOrdering Facility: [facility] Address: [address] [place] [address] Performed By: #### 2 4321-2 ####[facility] LABORATORYCLIA [id number] [place] [address] [place] Calcium [Mass/Vol] 8.6 mg/dL Normal 8.5-10.2 [facility] Comment on above: Order Comment: Speci men Type: BLOOD SPECIMENOrdering Facility: [facility] Address: [address] [place] [address] Performed By: #### 2 4321-2 ####[facility]ORATORYCLIA [id number] [place] [address] [place] Chloride [Moles/Vol] 98 mmol/L Normal 98-107 [facility] Comment on above: Order Comment: Speci men Type: BLOOD SPECIMENOrdering Facility: [facility] Address: [address] [place] [address] Performed By: #### 2 4321-2 ####[facility] LABORATORYCLIA [id number] [place] [address] [place] CO2 [Moles/Vol] 22 mmol/L Normal 22-30 [facility] Comment on above: Order Comment: Speci men Type: BLOOD SPECIMENOrdering Facility: [facility] Address: [address] [place] [address] Performed By: #### 2 4321-2 ####[facility] LABORATORYCLIA [id number] [place] [address] [place] Creatinine [Mass/Vol] 1.52 mg/dL High 0.73-1.22 [facility] Comment on above: Order Comment: Speci men Type: BLOOD SPECIMENOrdering Facility: [facility] Address: [address] [place] [address] Performed By: #### 2 4321-2 ####[facility] LABORATORYCLIA [id number] [address] [place] Creatinine and Glomerular filtration rate.predicted panel (S/P/Bld) 49 mL/min/1.73m??? Low >=60 [facility] Comment on above: Order Comment: Speci men Type: BLOOD SPECIMENOrdering Facility: [facility] Address: [address] [place] [address] Result Comment: Apple mated Glomerular Filtration Rate (eGFR) is calculated using the 2020 CKD-EPI creatinine equation. This equation utilizes serum creatinine, sex, and age as parameters. The creatinine assay has traceable calibration to isotope dilution-mass spectrometry. Refer to KDIGO guidelines for clinical interpretation. In patients with unstable renal function, e.g. those with acute kidney injury, the eGFR may not accurately reflect actual GFR. Performed By: #### 2 4321-2 ####[facility]ORATORYCLIA [id number] [place] [address] [place] Glucose [Mass/Vol] 139 mg/dL High 74-99 [facility] Comment on above: Order Comment: Yojana riggins Type: BLOOD SPECIMENOrdering Facility: [facility] Address: [address] [place] [address] Result Comment: The [place] Diabetes [employer] (ADA) provides guidance for cutoff values for fasting glucose and random glucose. The ADA defines fasting as no caloric intake for at least 8 hours. Fasting plasma glucose results between 100 to 125 mg/dL indicate increased risk for diabetes (prediabetes).Fasting plasma glucose results greater than or equal to 126 mg/dL meet the criteria for diagnosis of diabetes. In the absence of unequivocal hyperglycemia, results should be confirmed by repeat testing. In a patient with classic symptoms of hyperglycemia or hyperglycemic crisis, random plasma glucose results greater than or equal to 200 mg/dL meet the criteria for diagnosis of diabetes.Reference: Standards of Medical Care in Diabetes 2016, [place] [employer]. Diabetes Care. 2016.39(Suppl 1). Performed By: #### 2 4321-2 ####[facility] LABORATORYCLIA [id number] [place] [id number] [place] Potassium [Moles/Vol] 4.4 mmol/L Normal 3.7-5.1 [facility] Comment on above: Order Comment: Yojana riggins Type: BLOOD SPECIMENOrdering Facility: [facility] Address: [address] [place] [address] Performed By: #### 2 4321-2 ####[facility] LABORATORYCLIA [id number] [place] [address] [place] Sodium [Moles/Vol] 127 mmol/L Low 136-144 [facility] Comment on above: Order Comment: Speci men Type: BLOOD SPECIMENOrdering Facility: [facility] Address: [address] [place] [address] Performed By: #### 2 4321-2 ####[facility] LABORATORYCLIA [id number] [address] STATES OF [facility] Urea nitrogen [Mass/Vol] 34 mg/dL High 9-24 [facility] Comment on above: Order Comment: Speci men Type: BLOOD SPECIMENOrdering Facility: [facility] Address: [address] [place] [address] Performed By: #### 2 4321-2 ####[facility] LABORATORYCLIA [id number] [address] [place] OF [facility] CBC panel Auto (Bld)on 09-02 Erythrocyte distribution width (RBC) [Ratio] 17.1 % High 11.5-15.0 [facility] Comment on above: Order Comment: Speci men Type: BLOOD SPECIMENOrdering Facility: [facility] Address: [address] [place] [address] Performed By: #### 5 8410-2 ####[facility]ORATORYCLIA [id number] [address] STATES OF [facility] Hematocrit (Bld) [Volume fraction] 22.5 % Low 39.0-51.0 [facility] Comment on above: Order Comment: Speci men Type: BLOOD SPECIMENOrdering Facility: [facility] Address: [address] [place] [address] Performed By: #### 5 8410-2 ####[facility]ORATORYCLIA [id number] [address] STATES OF [facility] Hemoglobin (Bld) [Mass/Vol] 7.5 g/dL Low 13.0-17.0 [facility] Comment on above: Order Comment: Speci men Type: BLOOD SPECIMENOrdering Facility: [facility] Address: [address] [place] [address] Performed By: #### 5 8410-2 ####[facility] LABORATORYCLIA [id number] [address] MCH (RBC) [Entitic mass] 30.4 pg Normal 26.0-34.0 [facility] Comment on above: Order Comment: Speci men Type: BLOOD SPECIMENOrdering Facility: [facility] Address: [address] [place] [address] Performed By: #### 5 8410-2 ####[facility]ORATORYCLIA [id number] [address] MCHC (RBC) [Mass/Vol] 33.3 g/dL Normal 30.5-36.0 [facility] Comment on above: Order Comment: Speci men Type: BLOOD SPECIMENOrdering Facility: [facility] Address: [address] [place] [address] Performed By: #### 5 8410-2 ####[facility]ORATORYCLIA [id number] [address] MCV (RBC) [Entitic vol] 91.1 fL Normal 80.0-100.0 [facility] Comment on above: Order Comment: Speci men Type: BLOOD SPECIMENOrdering Facility: [facility] Address: [address] [place] [address] Performed By: #### 5 8410-2 ####[facility]ORATORYCLIA [id number] [address] Nucleated RBC (Bld) [#/Vol] 0.02 10*3/uL High <0.01 [facility] Comment on above: Order Comment: Speci men Type: BLOOD SPECIMENOrdering Facility: [facility] Address: [address] [place] [address] Performed By: #### 5 8410-2 ####[facility]ORATORYCLIA [id number] [address] Platelet mean volume (Bld) [Entitic vol] 9.3 fL Normal 9.0-12.7 [facility] Comment on above: Order Comment: Speci men Type: BLOOD SPECIMENOrdering Facility: [facility] Address: [address] [place] [address] Performed By: #### 5 8410-2 ####[facility] LABORATORYCLIA [id number] [address] Platelets (Bld) [#/Vol] 163 10*3/uL Normal 150-400 [facility] Comment on above: Order Comment: Speci men Type: BLOOD SPECIMENOrdering Facility: [facility] Address: [address] [place] [address] Result Comment: No c lot detected. Performed By: #### 5 8410-2 ####[facility]ORATORYCLIA [id number] [address] OF [facility] RBC (Bld) [#/Vol] 2.47 10*6/uL Low 4.20-6.00 [facility] Comment on above: Order Comment: Speci men Type: BLOOD SPECIMENOrdering Facility: [facility] Address: [address] [place] [address] Performed By: #### 5 8410-2 ####[facility]ORATORYCLIA [id number] [address] OF [facility] WBC (Bld) [#/Vol] 15.49 10*3/uL High 3.70-11.00 [facility] Comment on above: Order Comment: Speci men Type: BLOOD SPECIMENOrdering Facility: [facility] Address: [address] [place] [address] Performed By: #### 5 8410-2 ####[facility]ORATORYCLIA [id number] [address] CONSULT PROGon 09-02-2024 CONSULT PROG Normal [facility] THERAPY NTon 09-02-2024 THERAPY NT Normal [facility] XR CHEST 1V FRONTALon 2024 XR CHEST 1V FRONTAL Normal [facility] Basic metabolic 2000 panelon 09-01-2024 Anion gap [Moles/Vol] 9 mmol/L Normal 8-15 [facility] Comment on above: Order Comment: Speci men Type: BLOOD SPECIMENOrdering Facility: [facility] Address: [address] [place] [address] Performed By: #### 2 4321-2 ####[facility]ORATORYCLIA [id number] [place] [address] [place] Calcium [Mass/Vol] 8.8 mg/dL Normal 8.5-10.2 [facility] Comment on above: Order Comment: Speci men Type: BLOOD SPECIMENOrdering Facility: [facility] Address: [address] [place] [address] Performed By: #### 2 4321-2 ####[facility]ORATORYCLIA [id number] [place] [address] [place] Chloride [Moles/Vol] 96 mmol/L Low 98-107 [facility] Comment on above: Order Comment: Speci men Type: BLOOD SPECIMENOrdering Facility: [facility] Address: [address] [place] [address] Performed By: #### 2 4321-2 ####[facility]ATORYCLIA [id number] [place] [address] [place] CO2 [Moles/Vol] 22 mmol/L Normal 22-30 [facility] Comment on above: Order Comment: Speci men Type: BLOOD SPECIMENOrdering Facility: [facility] Address: [address] [place] [address] Performed By: #### 2 4321-2 ####[facility]ORATORYCLIA [id number] [place] [address] [place] Creatinine [Mass/Vol] 1.56 mg/dL High 0.73-1.22 [facility] Comment on above: Order Comment: Speci men Type: BLOOD SPECIMENOrdering Facility: [facility] Address: [address] [place] [address] Performed By: #### 2 4321-2 ####[facility]ORATORYCLIA [id number] [address] [place] Creatinine and Glomerular filtration rate.predicted panel (S/P/Bld) 48 mL/min/1.73m??? Low >=60 [facility] Comment on above: Order Comment: Yojana riggins Type: BLOOD SPECIMENOrdering Facility: [facility] Address: [address] [place] [address] Result Comment: Apple mated Glomerular Filtration Rate (eGFR) is calculated using the 2020 CKD-EPI creatinine equation. This equation utilizes serum creatinine, sex, and age as parameters. The creatinine assay has traceable calibration to isotope dilution-mass spectrometry. Refer to KDIGO guidelines for clinical interpretation. In patients with unstable renal function, e.g. those with acute kidney injury, the eGFR may not accurately reflect actual GFR. Performed By: #### 2 4321-2 ####[facility]ORATORYCLIA [id number] [place] [address] [place] Glucose [Mass/Vol] 197 mg/dL High 74-99 [facility] Comment on above: Order Comment: Yojana riggins Type: BLOOD SPECIMENOrdering Facility: [facility] Address: [address] [place] [address] Result Comment: The [place] Diabetes Association (ADA) provides guidance for cutoff values for fasting glucose and random glucose. The ADA defines fasting as no caloric intake for at least 8 hours. Fasting plasma glucose results between 100 to 125 mg/dL indicate increased risk for diabetes (prediabetes).Fasting plasma glucose results greater than or equal to 126 mg/dL meet the criteria for diagnosis of diabetes. In the absence of unequivocal hyperglycemia, results should be confirmed by repeat testing. In a patient with classic symptoms of hyperglycemia or hyperglycemic crisis, random plasma glucose results greater than or equal to 200 mg/dL meet the criteria for diagnosis of diabetes.Reference: Standards of Medical Care in Diabetes 2016, [place] [employer]. Diabetes Care. 2016.39(Suppl 1). Performed By: #### 2 4321-2 ####[facility]ORATORYCLIA [id number] [place] [address] [place] Potassium [Moles/Vol] 4.9 mmol/L Normal 3.7-5.1 [facility] Comment on above: Order Comment: Yojana riggins Type: BLOOD SPECIMENOrdering Facility: [facility] Address: [address] [place] [address] Performed By: #### 2 4321-2 ####[facility]ORATORYCLIA [id number] [place] [address] [place] Sodium [Moles/Vol] 127 mmol/L Low 136-144 [facility] Comment on above: Order Comment: Speci men Type: BLOOD SPECIMENOrdering Facility: [facility] Address: [address] [place] [address] Performed By: #### 2 4321-2 ####[facility]ORATORYCLIA [id number] [place] [address] [place] Urea nitrogen [Mass/Vol] 29 mg/dL High 9-24 [facility] Comment on above: Order Comment: Speci men Type: BLOOD SPECIMENOrdering Facility: [facility] Address: [address] [place] [address] Performed By: #### 2 4321-2 ####[facility]ORATORYCLIA [id number] [place] [address] [place] Anion gap [Moles/Vol] 9 mmol/L Normal 8-15 [facility] Comment on above: Order Comment: Speci men Type: BLOOD SPECIMENOrdering Facility: [facility] Address: [address] [place] [address] Performed By: #### 2 4321-2, ####[facility]ORATORYCLIA [id number] [place] [address] [place] Calcium [Mass/Vol] 8.4 mg/dL Low 8.5-10.2 [facility] Comment on above: Order Comment: Speci men Type: BLOOD SPECIMENOrdering Facility: [facility] Address: [address] [place] [address] Performed By: #### 2 4321-2, ####[facility]ORATORYCLIA [id number] [place] [address] [place] Chloride [Moles/Vol] 97 mmol/L Low 98-107 [facility] Comment on above: Order Comment: Speci men Type: BLOOD SPECIMENOrdering Facility: [facility] Address: [address] [place], [place] [address] Performed By: #### 2 4320-05, ####[facility]ORATORYCLIA [id number] [place] [address] [place] CO2 [Moles/Vol] 21 mmol/L Low 22-30 [facility] Comment on above: Order Comment: Speci men Type: BLOOD SPECIMENOrdering Facility: [facility] Address: [address] [place] [address] Performed By: #### 2 4320-05, ####[facility]ORATORYCLIA [id number] [address] [place] Creatinine [Mass/Vol] 1.57 mg/dL High 0.73-1.22 [facility] Comment on above: Order Comment: Speci men Type: BLOOD SPECIMENOrdering Facility: [facility] Address: [address] [place] [address] Performed By: #### 2 4320-05, ####[facility]ATORYCLIA [id number] [address] Creatinine and Glomerular filtration rate.predicted panel (S/P/Bld) 47 mL/min/1.73m??? Low >=60 [facility] Comment on above: Order Comment: Speci men Type: BLOOD SPECIMENOrdering Facility: [facility] Address: [address] [place] [address] Result Comment: Apple mated Glomerular Filtration Rate (eGFR) is calculated using the 2020 CKD-EPI creatinine equation. This equation utilizes serum creatinine, sex, and age as parameters. The creatinine assay has traceable calibration to isotope dilution-mass spectrometry. Refer to KDIGO guidelines for clinical interpretation. In patients with unstable renal function, e.g. those with acute kidney injury, the eGFR may not accurately reflect actual GFR. Performed By: #### 2 4320-05, ####[facility]ATORYCLIA [id number] [place] [id number] [place] Glucose [Mass/Vol] 192 mg/dL High 74-99 [facility] Comment on above: Order Comment: Speci men Type: BLOOD SPECIMENOrdering Facility: [facility] Address: [address] [place] [address] Result Comment: The [place] Diabetes Association (ADA) provides guidance for cutoff values for fasting glucose and random glucose. The ADA defines fasting as no caloric intake for at least 8 hours. Fasting plasma glucose results between 100 to 125 mg/dL indicate increased risk for diabetes (prediabetes).Fasting plasma glucose results greater than or equal to 126 mg/dL meet the criteria for diagnosis of diabetes. In the absence of unequivocal hyperglycemia, results should be confirmed by repeat testing. In a patient with classic symptoms of hyperglycemia or hyperglycemic crisis, random plasma glucose results greater than or equal to 200 mg/dL meet the criteria for diagnosis of diabetes.Reference: Standards of Medical Care in Diabetes 2016, [place] [employer]. Diabetes Care. 2016.39(Suppl 1). Performed By: #### 2 43204-11, ####[facility]ATORYCLIA [id number] [place] [address] [place] Potassium [Moles/Vol] 5.2 mmol/L High 3.7-5.1 [facility] Comment on above: Order Comment: Yojana riggins Type: BLOOD SPECIMENOrdering Facility: [facility] Address: [address] [place] [address] Performed By: #### 2 4320-05, ####[facility]ATORYCLIA [id number] [place] [address] [place] Sodium [Moles/Vol] 127 mmol/L Low 136-144 [facility] Comment on above: Order Comment: Speci men Type: BLOOD SPECIMENOrdering Facility: [facility] Address: [address] [place], [place] [address] Performed By: #### 2 4320-05, ####[facility]ATORYCLIA [id number] [place] [address] [place] Urea nitrogen [Mass/Vol] 26 mg/dL High 9-24 [facility] Comment on above: Order Comment: Speci men Type: BLOOD SPECIMENOrdering Facility: [facility] Address: [address] [place] [address] Performed By: #### 2 4321-2, 66322-0 ####[facility]ORATORYCLIA [id number] [address] CBC panel Auto (Bld)on 09-01 Erythrocyte distribution width (RBC) [Ratio] 16.7 % High 11.5-15.0 [facility] Comment on above: Order Comment: Speci men Type: BLOOD SPECIMENOrdering Facility: [facility] Address: [address] [place] [address] Performed By: #### 5 8410-2 ####[facility]ORATORYCLIA [id number] [address] Hematocrit (Bld) [Volume fraction] 19.7 % Low 39.0-51.0 [facility] Comment on above: Order Comment: Speci men Type: BLOOD SPECIMENOrdering Facility: [facility] Address: [address] [place] [address] Performed By: #### 5 8410-2 ####[facility]ORATORYCLIA [id number] [address] [place] Hemoglobin (Bld) [Mass/Vol] 6.7 g/dL Low 13.0-17.0 [facility] Comment on above: Order Comment: Speci men Type: BLOOD SPECIMENOrdering Facility: [facility] Address: [address] [place] [address] Performed By: #### 5 8410-2 ####[facility] [place] [facility]ORATORYCLIA [id number] [address] [place] MCH (RBC) [Entitic mass] 30.6 pg Normal 26.0-34.0 [facility] Comment on above: Order Comment: Speci men Type: BLOOD SPECIMENOrdering Facility: [facility] Address: [address] [place] [address] Performed By: #### 5 8410-2 ####[facility] [place] [facility]ORATORYCLIA [id number] [address] STATES OF [facility] MCHC (RBC) [Mass/Vol] 34.0 g/dL Normal 30.5-36.0 [facility] Comment on above: Order Comment: Speci men Type: BLOOD SPECIMENOrdering Facility: [facility] Address: [address] [place] [address] Performed By: #### 5 8410-2 ####[facility] [place] [facility]ORATORYCLIA [id number] [address] [place] MCV (RBC) [Entitic vol] 90.0 fL Normal 80.0-100.0 [facility] Comment on above: Order Comment: Speci men Type: BLOOD SPECIMENOrdering Facility: [facility] Address: [address] [place] [address] Performed By: #### 5 8410-2 ####[facility] [place] LABORATORYCLIA [id number] [address] Nucleated RBC (Bld) [#/Vol] 10*3/uL Normal <0.01 [facility] Comment on above: Order Comment: Speci men Type: BLOOD SPECIMENOrdering Facility: [facility] Address: [address] [place] [address] Performed By: #### 5 8410-2 ####[facility] [place] LABORATORYCLIA [id number] [address] [place] Platelet mean volume (Bld) [Entitic vol] 9.3 fL Normal 9.0-12.7 [facility] Comment on above: Order Comment: Speci men Type: BLOOD SPECIMENOrdering Facility: [facility] Address: [address] [place] [address] Performed By: #### 5 8410-2 ####[facility] [place] [facility]ORATORYCLIA [id number] [address] Platelets (Bld) [#/Vol] 141 10*3/uL Low 150-400 [facility] Comment on above: Order Comment: Speci men Type: BLOOD SPECIMENOrdering Facility: [facility] Address: [address] [place] [address] Result Comment: No c lot detected. Performed By: #### 5 8410-2 ####[facility] [place] LABORATORYCLIA [id number] [address] OF [facility] RBC (Bld) [#/Vol] 2.19 10*6/uL Low 4.20-6.00 [facility] Comment on above: Order Comment: Speci men Type: BLOOD SPECIMENOrdering Facility: [facility] Address: [address] [place] [address] Performed By: #### 5 8410-2 ####[facility] [place] LABORATORYCLIA [id number] [address] OF [facility] WBC (Bld) [#/Vol] 16.19 10*3/uL High 3.70-11.00 [facility] Comment on above: Order Comment: Speci men Type: BLOOD SPECIMENOrdering Facility: [facility] Address: [address] [place] [address] Performed By: #### 5 8410-2 ####[facility] [place] LABORATORYCLIA [id number] [address] Erythrocyte distribution width (RBC) [Ratio] 16.3 % High 11.5-15.0 [facility] Comment on above: Order Comment: Speci men Type: BLOOD SPECIMENOrdering Facility: [facility] Address: [address] [place] [address] Performed By: #### 5 8410-2 ####[facility] [place] LABORATORYCLIA [id number] [address] Hematocrit (Bld) [Volume fraction] 17.2 % Low 39.0-51.0 [facility] Comment on above: Order Comment: Speci men Type: BLOOD SPECIMENOrdering Facility: [facility] Address: [address] [place] [address] Performed By: #### 5 8410-2 ####[facility] [place] LABORATORYCLIA [id number] [address] Hemoglobin (Bld) [Mass/Vol] 5.8 g/dL Critically low 13.0-17.0 [facility] Comment on above: Order Comment: Speci men Type: BLOOD SPECIMENOrdering Facility: [facility] Address: [address] [place] [address] Performed By: #### 5 8410-2 ####[facility] [place] LABORATORYCLIA [id number] [address] MCH (RBC) [Entitic mass] 31.7 pg Normal 26.0-34.0 [facility] Comment on above: Order Comment: Speci men Type: BLOOD SPECIMENOrdering Facility: [facility] Address: [address] [place] [address] Performed By: #### 5 8410-2 ####[facility] [place] LABORATORYCLIA [id number] [address] OF [facility] MCHC (RBC) [Mass/Vol] 33.7 g/dL Normal 30.5-36.0 [facility] Comment on above: Order Comment: Speci men Type: BLOOD SPECIMENOrdering Facility: [facility] Address: [address] [place] [address] Performed By: #### 5 8410-2 ####[facility] [place] [facility]ORATORYCLIA [id number] [address] MCV (RBC) [Entitic vol] 94.0 fL Normal 80.0-100.0 [facility] Comment on above: Order Comment: Speci men Type: BLOOD SPECIMENOrdering Facility: [facility] Address: [address] [place] [address] Performed By: #### 5 8410-2 ####[facility] [place] LABORATORYCLIA [id number] [address] Nucleated RBC (Bld) [#/Vol] 10*3/uL Normal <0.01 [facility] Comment on above: Order Comment: Speci men Type: BLOOD SPECIMENOrdering Facility: [facility] Address: [address] [place] [address] Performed By: #### 5 8410-2 ####[facility] [place] [facility]ORATORYCLIA [id number] [place] [address] [place] Platelet mean volume (Bld) [Entitic vol] 9.3 fL Normal 9.0-12.7 [facility] Comment on above: Order Comment: Speci men Type: BLOOD SPECIMENOrdering Facility: [facility] Address: [address] [place] [address] Performed By: #### 5 8410-2 ####[facility] [place] [facility]ORATORYCLIA [id number] [place] [address] [place] Platelets (Bld) [#/Vol] 129 10*3/uL Low 150-400 [facility] Comment on above: Order Comment: Speci men Type: BLOOD SPECIMENOrdering Facility: [facility] Address: [address] [place] [address] Result Comment: No c lot detected. Performed By: #### 5 8410-2 ####[facility] [place] [facility]ORATORYCLIA [id number] [place] [address] [place] RBC (Bld) [#/Vol] 1.83 10*6/uL Low 4.20-6.00 [facility] Comment on above: Order Comment: Speci men Type: BLOOD SPECIMENOrdering Facility: [facility] Address: [address] [place] [address] Performed By: #### 5 8410-2 ####[facility] [place] [facility]ORATORYCLIA [id number] [place] [address] [place] WBC (Bld) [#/Vol] 14.31 10*3/uL High 3.70-11.00 [facility] Comment on above: Order Comment: Speci men Type: BLOOD SPECIMENOrdering Facility: [facility] Address: [address] [place] [address] Performed By: #### 5 8410-2 ####[facility] [place] LABORATORYCLIA [id number] [address] [place] CONSULT PROGon 09-01-2024 CONSULT PROG Normal [facility] CONSULT PROG Normal [facility] Hgb Bld-mCncon 09-01-2024 Hemoglobin (Bld) [Mass/Vol] 7.7 g/dL Low 13.0-17.0 [facility] Comment on above: Order Comment: Speci men Type: BLOOD SPECIMENOrdering Facility: [facility] Address: [address] [place] [address] Performed By: #### 7 18-7 ####[facility] [place] [facility]ORATORYCLIA [id number] [place] [address] [place] Magnesium SerPl-mCncon 09-01 Magnesium [Mass/Vol] 1.8 mg/dL Normal 1.7-2.3 [facility] Comment on above: Order Comment: Speci men Type: BLOOD SPECIMENOrdering Facility: [facility] Address: [address] [place] [address] Performed By: #### 2 4321-2, 41319-4 ####[facility] [place] [facility]ORATORYCLIA [id number] [address] [place] XR CHEST 1V FRONTALon 2024 XR CHEST 1V FRONTAL Normal [facility] ARTERIAL BLOOD GASESon 08-31 Base deficit (BldA) [Moles/Vol] -3 mmol/L Low -2-0 [facility] Comment on above: Order Comment: Speci men Type: ARTERIAL BLOOD SPECIMENOrdering Facility: [facility] Address: [address] [place] [address] Performed By: #### A LLBG ####[facility] [place] [facility]ORATORYCLIA [id number] [address] [place] Body temperature 99.68 [degF] Normal [facility] Comment on above: Order Comment: Speci men Type: ARTERIAL BLOOD SPECIMENOrdering Facility: [facility] Address: [address] [place] [address] Performed By: #### A LLBG ####[facility] [place] LABORATORYCLIA [id number] [address] [place] Calcium.ionized (BldV) [Mass/Vol] 1.23 mmol/L Normal 1.08-1.30 [facility] Comment on above: Order Comment: Speci men Type: ARTERIAL BLOOD SPECIMENOrdering Facility: [facility] Address: [address] [place] [address] Performed By: #### A LLBG ####[facility] [place] [facility]ORATORYCLIA [id number] [place] [address] [place] Calcium.ionized adjusted to pH 7.4 (BldA) [Moles/Vol] 1.24 mmol/L Normal 1.08-1.30 [facility] Comment on above: Order Comment: Speci men Type: ARTERIAL BLOOD SPECIMENOrdering Facility: [facility] Address: [address] [place] [address] Performed By: #### A LLBG ####[facility] [place] [facility]ORATORYCLIA [id number] [address] OF [facility] Carboxyhemoglobin (BldA) [Mass fraction] 1.9 % Normal 0.0-2.0 [facility] Comment on above: Order Comment: Speci men Type: ARTERIAL BLOOD SPECIMENOrdering Facility: [facility] Address: [address] [place] [address] Result Comment: Carb oxyhemoglobin Reference Range for Smokers: 2.0-8.0% Performed By: #### A LLBG ####[facility] [place] [facility]ORATORYCLIA [id number] [place] [address] [place] Chloride [Moles/Vol] 104 mmol/L Normal 97-105 [facility] Comment on above: Order Comment: Speci men Type: ARTERIAL BLOOD SPECIMENOrdering Facility: [facility] Address: [address] [place] [address] Performed By: #### A LLBG ####[facility] [place] [facility]ORATORYCLIA [id number] [address] [place] CO2 (Bld) [Partial pressure] 34 mm Hg Low 36-46 [facility] Comment on above: Order Comment: Speci men Type: ARTERIAL BLOOD SPECIMENOrdering Facility: [facility] Address: [address] [place] [address] Performed By: #### A LLBG ####[facility] [place] [facility]ORATORYCLIA [id number] [address] [place] CO2 adjusted to patient's actual temperature (Bld) [Partial pressure] 35 mmHg Low 36-46 [facility] Comment on above: Order Comment: Speci men Type: ARTERIAL BLOOD SPECIMENOrdering Facility: [facility] Address: [address] [place] [address] Performed By: #### A LLBG ####[facility] [place] [facility]ORATORYCLIA [id number] [address] [place] Glucose [Mass/Vol] 109 mg/dL High 60-105 [facility] Comment on above: Order Comment: Speci men Type: ARTERIAL BLOOD SPECIMENOrdering Facility: [facility] Address: [address] [place] [address] Performed By: #### A LLBG ####[facility] [place] [facility]ORATORYCLIA [id number] [address] [place] HCO3 (Bld) [Moles/Vol] 21 mmol/L Low 22-26 [facility] Comment on above: Order Comment: Speci men Type: ARTERIAL BLOOD SPECIMENOrdering Facility: [facility] Address: [address] [place] [address] Performed By: #### A LLBG ####[facility] [place] [facility]ORATORYCLIA [id number] [address] [place] Hematocrit (Bld) [Volume fraction] 25.0 % Low 39.0-51.0 [facility] Comment on above: Order Comment: Speci men Type: ARTERIAL BLOOD SPECIMENOrdering Facility: [facility] Address: [address] [place] [address] Performed By: #### A LLBG ####[facility] [place] [facility]ORATORYCLIA [id number] [address] [place] Hemoglobin (Bld) [Mass/Vol] 8.0 g/dL Low 13.0-17.0 [facility] Comment on above: Order Comment: Speci men Type: ARTERIAL BLOOD SPECIMENOrdering Facility: [facility] Address: [address] [place] [address] Performed By: #### A LLBG ####[facility] [place] LABORATORYCLIA [id number] [address] Order Comment: Speci men Type: BLOOD SPECIMENOrdering Facility: [facility] Address: [address] [place] [address] Performed By: #### 5 8410-2 ####[facility] [place] LABORATORYCLIA [id number] [address] Lactate [Moles/Vol] 1.4 mmol/L Normal 0.5-2.2 [facility] Comment on above: Order Comment: Speci men Type: ARTERIAL BLOOD SPECIMENOrdering Facility: [facility] Address: [address] [place] [address] Performed By: #### A LLBG ####[facility] [place] LABORATORYCLIA [id number] [address] STATES [facility] 2 Liters/min Normal [facility] Comment on above: Order Comment: Speci men Type: ARTERIAL BLOOD SPECIMENOrdering Facility: [facility] Address: [address] [place] [address] Performed By: #### A LLBG ####[facility] [place] [facility]ORATORYCLIA [id number] [address] Methemoglobin (Bld) [Mass fraction] 0.5 % Normal 0.0-1.5 [facility] Comment on above: Order Comment: Speci men Type: ARTERIAL BLOOD SPECIMENOrdering Facility: [facility] Address: [address] [place] [address] Performed By: #### A LLBG ####[facility] [place] LABORATORYCLIA [id number] [address] O2 THERAPY NC = Nasal Cannula Normal [facility] Comment on above: Order Comment: Speci men Type: ARTERIAL BLOOD SPECIMENOrdering Facility: [facility] Address: [address] [place] [address] Performed By: #### A LLBG ####[facility] [place] [facility]ORATORYCLIA [id number] [address] [place] Oxygen (Bld) [Partial pressure] 93 mm Hg Normal 85-95 [facility] Comment on above: Order Comment: Speci men Type: ARTERIAL BLOOD SPECIMENOrdering Facility: [facility] Address: [address] [place] [address] Performed By: #### A LLBG ####[facility] [place] [facility]ORATORYCLIA [id number] [address] [place] Oxygen adjusted to patient's actual temperature (Bld) [Partial pressure] 96 mmHg High 85-95 [facility] Comment on above: Order Comment: Speci men Type: ARTERIAL BLOOD SPECIMENOrdering Facility: [facility] Address: [address] [place] [address] Performed By: #### A LLBG ####[facility] [place] [facility]ORATORYCLIA [id number] [address] [place] Oxyhemoglobin (BldA) [Mass fraction] 95 % Normal 95-98 [facility] Comment on above: Order Comment: Speci men Type: ARTERIAL BLOOD SPECIMENOrdering Facility: [facility] Address: [address] [place] [address] Performed By: #### A LLBG ####[facility] [place] [facility]ORATORYCLIA [id number] [address] [place] pH (Bld) 7.41 [pH] Normal 7.35-7.45 [facility] Comment on above: Order Comment: Speci men Type: ARTERIAL BLOOD SPECIMENOrdering Facility: [facility] Address: [address] [place] [address] Performed By: #### A LLBG ####[facility] [place] [facility]ORATORYCLIA [id number] [address] pH adjusted to patient's actual temperature (Bld) 7.40 Normal 7.35-7.45 [facility] Comment on above: Order Comment: Speci men Type: ARTERIAL BLOOD SPECIMENOrdering Facility: [facility] Address: [address] [place] [address] Performed By: #### A LLBG ####[facility]ORATORYCLIA [id number] [address] [place] Potassium [Moles/Vol] 5.5 mmol/L High 3.5-5.0 [facility] Comment on above: Order Comment: Speci men Type: ARTERIAL BLOOD SPECIMENOrdering Facility: [facility] Address: [address] [place] [address] Performed By: #### A LLBG ####[facility] LABORATORYCLIA [id number] [place] [address] [place] Sodium [Moles/Vol] 131 mmol/L Low 136-144 [facility] Comment on above: Order Comment: Speci men Type: ARTERIAL BLOOD SPECIMENOrdering Facility: [facility] Address: [address] [place] [address] Performed By: #### A LLBG ####[facility] [place] [facility]ORATORYCLIA [id number] [place] [address] [place] Basic metabolic 2000 panelon 08-31-2024 Anion gap [Moles/Vol] 6 mmol/L Low 8-15 [facility] Comment on above: Order Comment: Speci men Type: BLOOD SPECIMENOrdering Facility: [facility] Address: [address] [place] [address] Performed By: #### 2 4321-2 ####[facility]ORATORYCLIA [id number] [place] [address] [place] Calcium [Mass/Vol] 8.3 mg/dL Low 8.5-10.2 [facility] Comment on above: Order Comment: Speci men Type: BLOOD SPECIMENOrdering Facility: [facility] Address: [address] [place] [address] Performed By: #### 2 4321-2 ####[facility]ORATORYCLIA [id number] [place] [address] [place] Chloride [Moles/Vol] 100 mmol/L Normal 98-107 [facility] Comment on above: Order Comment: Speci men Type: BLOOD SPECIMENOrdering Facility: [facility] Address: [address] [place] [address] Performed By: #### 2 4321-2 ####[facility] [place] [facility]ATORYCLIA [id number] [place] [address] [place] CO2 [Moles/Vol] 23 mmol/L Normal 22-30 [facility] Comment on above: Order Comment: Speci men Type: BLOOD SPECIMENOrdering Facility: [facility] Address: [address] [place] [address] Performed By: #### 2 4321-2 ####[facility] [place] [facility]ORATORYCLIA [id number] [address] [place] Creatinine [Mass/Vol] 1.45 mg/dL High 0.73-1.22 [facility] Comment on above: Order Comment: Speci men Type: BLOOD SPECIMENOrdering Facility: [facility] Address: [address] [place] [address] Performed By: #### 2 4321-2 ####[facility] [place] [facility]ORATORYCLIA [id number] [address] Creatinine and Glomerular filtration rate.predicted panel (S/P/Bld) 52 mL/min/1.73m??? Low >=60 [facility] Comment on above: Order Comment: Speci men Type: BLOOD SPECIMENOrdering Facility: [facility] Address: [address] [place] [address] Result Comment: Apple mated Glomerular Filtration Rate (eGFR) is calculated using the 2020 CKD-EPI creatinine equation. This equation utilizes serum creatinine, sex, and age as parameters. The creatinine assay has traceable calibration to isotope dilution-mass spectrometry. Refer to KDIGO guidelines for clinical interpretation. In patients with unstable renal function, e.g. those with acute kidney injury, the eGFR may not accurately reflect actual GFR. Performed By: #### 2 4321-2 ####[facility] [place] [facility]ORATORYCLIA [id number] [address] STATES OF [facility] Glucose [Mass/Vol] 99 mg/dL Normal 74-99 [facility] Comment on above: Order Comment: Speci men Type: BLOOD SPECIMENOrdering Facility: [facility] Address: [address] [place] [address] Result Comment: The [place] Diabetes [employer] (ADA) provides guidance for cutoff values for fasting glucose and random glucose. The ADA defines fasting as no caloric intake for at least 8 hours. Fasting plasma glucose results between 100 to 125 mg/dL indicate increased risk for diabetes (prediabetes).Fasting plasma glucose results greater than or equal to 126 mg/dL meet the criteria for diagnosis of diabetes. In the absence of unequivocal hyperglycemia, results should be confirmed by repeat testing. In a patient with classic symptoms of hyperglycemia or hyperglycemic crisis, random plasma glucose results greater than or equal to 200 mg/dL meet the criteria for diagnosis of diabetes.Reference: Standards of Medical Care in Diabetes 2016, [place] [employer]. Diabetes Care. 2016.39(Suppl 1). Performed By: #### 2 4321-2 ####[facility] [place] [facility]ORATORYCLIA [id number] [place] [address] [place] Potassium [Moles/Vol] 5.0 mmol/L Normal 3.7-5.1 [facility] Comment on above: Order Comment: Yojana riggins Type: BLOOD SPECIMENOrdering Facility: [facility] Address: [address] [place] [address] Performed By: #### 2 4321-2 ####[facility] [place] [facility]ORATORYCLIA [id number] [place] [address] [place] Sodium [Moles/Vol] 129 mmol/L Low 136-144 [facility] Comment on above: Order Comment: Yojana riggins Type: BLOOD SPECIMENOrdering Facility: [facility] Address: [address] [place] [address] Performed By: #### 2 4321-2 ####[facility] [place] [facility]ORATORYCLIA [id number] [place] [address] [place] Urea nitrogen [Mass/Vol] 18 mg/dL Normal 9-24 [facility] Comment on above: Order Comment: Yojana riggins Type: BLOOD SPECIMENOrdering Facility: [facility] Address: [address] [place] [address] Performed By: #### 2 4321-2 ####[facility]ORATORYCLIA [id number] [place] [address] [place] Anion gap [Moles/Vol] 7 mmol/L Low 8-15 [facility] Comment on above: Order Comment: Speci men Type: BLOOD SPECIMENOrdering Facility: [facility] Address: [address] [place] [address] Performed By: #### 2 4321-2 ####[facility]ORATORYCLIA [id number] [place] [address] [place] Calcium [Mass/Vol] 8.4 mg/dL Low 8.5-10.2 [facility] Comment on above: Order Comment: Speci men Type: BLOOD SPECIMENOrdering Facility: [facility] Address: [address] [place] [address] Performed By: #### 2 4321-2 ####[facility]ORATORYCLIA [id number] [place] [address] [place] Chloride [Moles/Vol] 102 mmol/L Normal 98-107 [facility] Comment on above: Order Comment: Speci men Type: BLOOD SPECIMENOrdering Facility: [facility] Address: [address] [place] [address] Performed By: #### 2 4321-2 ####[facility]ORATORYCLIA [id number] [place] [address] [place] CO2 [Moles/Vol] 23 mmol/L Normal 22-30 [facility] Comment on above: Order Comment: Speci men Type: BLOOD SPECIMENOrdering Facility: [facility] Address: [address] [place] [address] Performed By: #### 2 4321-2 ####[facility] LABORATORYCLIA [id number] [place] [address] [place] Creatinine [Mass/Vol] 1.31 mg/dL High 0.73-1.22 [facility] Comment on above: Order Comment: Speci men Type: BLOOD SPECIMENOrdering Facility: [facility] Address: [address] [place] [address] Performed By: #### 2 4321-2 ####[facility]STERCLIA [id number] [place] [id number] [facility] Creatinine and Glomerular filtration rate.predicted panel (S/P/Bld) 59 mL/min/1.73m??? Low >=60 [facility] Comment on above: Order Comment: Yojana riggins Type: BLOOD SPECIMENOrdering Facility: [facility] Address: [address] [place] [address] Result Comment: Apple mated Glomerular Filtration Rate (eGFR) is calculated using the 2020 CKD-EPI creatinine equation. This equation utilizes serum creatinine, sex, and age as parameters. The creatinine assay has traceable calibration to isotope dilution-mass spectrometry. Refer to KDIGO guidelines for clinical interpretation. In patients with unstable renal function, e.g. those with acute kidney injury, the eGFR may not accurately reflect actual GFR. Performed By: #### 2 4321-2 ####[facility] [id number] [place] [id number] [place] [facility] Glucose [Mass/Vol] 117 mg/dL High 74-99 [facility] Comment on above: Order Comment: Yojana riggins Type: BLOOD SPECIMENOrdering Facility: [facility] Address: [address] [place] [address] Result Comment: The [place] Diabetes Association (ADA) provides guidance for cutoff values for fasting glucose and random glucose. The ADA defines fasting as no caloric intake for at least 8 hours. Fasting plasma glucose results between 100 to 125 mg/dL indicate increased risk for diabetes (prediabetes).Fasting plasma glucose results greater than or equal to 126 mg/dL meet the criteria for diagnosis of diabetes. In the absence of unequivocal hyperglycemia, results should be confirmed by repeat testing. In a patient with classic symptoms of hyperglycemia or hyperglycemic crisis, random plasma glucose results greater than or equal to 200 mg/dL meet the criteria for diagnosis of diabetes.Reference: Standards of Medical Care in Diabetes 2016, [place] Diabetes Association. Diabetes Care. 2016.39(Suppl 1). Performed By: #### 2 4321-2 ####[facility]ORATORYIA [id number] [place] [id number] [place] Potassium [Moles/Vol] 5.2 mmol/L High 3.7-5.1 [facility] Comment on above: Order Comment: Speci men Type: BLOOD SPECIMENOrdering Facility: [facility] Address: [address] [place] [address] Performed By: #### 2 4321-2 ####[facility] LABORATORYCLIA [id number] [place] [address] [place] Sodium [Moles/Vol] 132 mmol/L Low 136-144 [facility] Comment on above: Order Comment: Speci men Type: BLOOD SPECIMENOrdering Facility: [facility] Address: [address] [place] [address] Performed By: #### 2 4321-2 ####[facility] LABORATORYCLIA [id number] [place] [address] [place] Urea nitrogen [Mass/Vol] 17 mg/dL Normal 9-24 [facility] Comment on above: Order Comment: Speci men Type: BLOOD SPECIMENOrdering Facility: [facility] Address: [address] [place] [address] Performed By: #### 2 4321-2 ####[facility] LABORATORYCLIA [id number] [place] [address] [place] Anion gap [Moles/Vol] 8 mmol/L Normal 8-15 [facility] Comment on above: Order Comment: Speci men Type: BLOOD SPECIMENOrdering Facility: [facility] Address: [address] [place] [address] Performed By: #### 2 4321-2, ####[facility] LABORATORYCLIA [id number] [place] [address] [place] Calcium [Mass/Vol] 8.3 mg/dL Low 8.5-10.2 [facility] Comment on above: Order Comment: Speci men Type: BLOOD SPECIMENOrdering Facility: [facility] Address: [address] [place] [address] Performed By: #### 2 4321-2, ####[facility] LABORATORYCLIA [id number] [place] [address] [place] Chloride [Moles/Vol] 102 mmol/L Normal 98-107 [facility] Comment on above: Order Comment: Speci men Type: BLOOD SPECIMENOrdering Facility: [facility] Address: [address] [place] [address] Performed By: #### 2 4321-2, ####[facility]ORATORYCLIA [id number] [place] [id number] [place] CO2 [Moles/Vol] 20 mmol/L Low 22-30 [facility] Comment on above: Order Comment: Speci men Type: BLOOD SPECIMENOrdering Facility: [facility] Address: [address] [place] [address] Performed By: #### 2 432-2, ####[facility]ORATORYCLIA [id number] [address] OF [facility] Creatinine [Mass/Vol] 1.20 mg/dL Normal 0.73-1.22 [facility] Comment on above: Order Comment: Speci men Type: BLOOD SPECIMENOrdering Facility: [facility] Address: [address] [place] [address] Performed By: #### 2 432-2, ####[facility]ATORYCLIA [id number] [address] Creatinine and Glomerular filtration rate.predicted panel (S/P/Bld) 65 mL/min/1.73m??? Normal >=60 [facility] Comment on above: Order Comment: Speci men Type: BLOOD SPECIMENOrdering Facility: [facility] Address: [address] [place] [address] Result Comment: Apple mated Glomerular Filtration Rate (eGFR) is calculated using the 2020 CKD-EPI creatinine equation. This equation utilizes serum creatinine, sex, and age as parameters. The creatinine assay has traceable calibration to isotope dilution-mass spectrometry. Refer to KDIGO guidelines for clinical interpretation. In patients with unstable renal function, e.g. those with acute kidney injury, the eGFR may not accurately reflect actual GFR. Performed By: #### 2 43204-11, ####[facility]ATORYCLIA [id number] [place] [address] [place] Glucose [Mass/Vol] 101 mg/dL High 74-99 [facility] Comment on above: Order Comment: Speci men Type: BLOOD SPECIMENOrdering Facility: [facility] Address: [address] [place] [address] Result Comment: The [place] Diabetes Association (ADA) provides guidance for cutoff values for fasting glucose and random glucose. The ADA defines fasting as no caloric intake for at least 8 hours. Fasting plasma glucose results between 100 to 125 mg/dL indicate increased risk for diabetes (prediabetes).Fasting plasma glucose results greater than or equal to 126 mg/dL meet the criteria for diagnosis of diabetes. In the absence of unequivocal hyperglycemia, results should be confirmed by repeat testing. In a patient with classic symptoms of hyperglycemia or hyperglycemic crisis, random plasma glucose results greater than or equal to 200 mg/dL meet the criteria for diagnosis of diabetes.Reference: Standards of Medical Care in Diabetes 2016, [place] [employer]. Diabetes Care. 2016.39(Suppl 1). Performed By: #### 2 43204-11, ####[facility]ATORYCLIA [id number] [place] [address] [place] Potassium [Moles/Vol] 5.6 mmol/L High 3.7-5.1 [facility] Comment on above: Order Comment: Speci men Type: BLOOD SPECIMENOrdering Facility: [facility] Address: [address] [place] [address] Performed By: #### 2 43204-11, ####[facility]ATORYCLIA [id number] [place] [id number] [place] Sodium [Moles/Vol] 130 mmol/L Low 136-144 [facility] Comment on above: Order Comment: Speci men Type: BLOOD SPECIMENOrdering Facility: [facility] Address: [address] [place] [address] Performed By: #### 2 4320-05, ####[facility]ORATORYCLIA [id number] [place] [address] [place] Urea nitrogen [Mass/Vol] 16 mg/dL Normal 9- [facility] Comment on above: Order Comment: Speci men Type: BLOOD SPECIMENOrdering Facility: [facility] Address: [address] [place] [address] Performed By: #### 2 4320-2, ####[facility]ORATORYCLIA [id number] [address] OF [facility] CBC panel Auto (Bld)on 08-31 Erythrocyte distribution width (RBC) [Ratio] 14.8 % Normal 11.5-15.0 [facility] Comment on above: Order Comment: Speci men Type: BLOOD SPECIMENOrdering Facility: [facility] Address: [address] [place] [address] Performed By: #### 5 8410-2 ####[facility]ORATORYCLIA [id number] [address] Hematocrit (Bld) [Volume fraction] 22.9 % Low 39.0-51.0 [facility] Comment on above: Order Comment: Speci men Type: BLOOD SPECIMENOrdering Facility: [facility] Address: [address] [place] [address] Performed By: #### 5 8410-2 ####[facility]ORATORYCLIA [id number] [address] [place] MCH (RBC) [Entitic mass] 31.0 pg Normal 26.0-34.0 [facility] Comment on above: Order Comment: Speci men Type: BLOOD SPECIMENOrdering Facility: [facility] Address: [address] [place] [address] Performed By: #### 5 8410-2 ####[facility]ORATORYCLIA [id number] [address] [place] MCHC (RBC) [Mass/Vol] 34.9 g/dL Normal 30.5-36.0 [facility] Comment on above: Order Comment: Speci men Type: BLOOD SPECIMENOrdering Facility: [facility] Address: [address] [place] [address] Performed By: #### 5 8410-2 ####[facility]ORATORYCLIA [id number] [address] [place] MCV (RBC) [Entitic vol] 88.8 fL Normal 80.0-100.0 A [facility] Comment on above: Order Comment: Speci men Type: BLOOD SPECIMENOrdering Facility: [facility] Address: [address] [place] [address] Performed By: #### 5 8410-2 ####[facility]ATORYCLIA [id number] [address] OF [facility] Nucleated RBC (Bld) [#/Vol] 10*3/uL Normal <0.01 [facility] Comment on above: Order Comment: Speci men Type: BLOOD SPECIMENOrdering Facility: [facility] Address: [address] [place] [address] Performed By: #### 5 8410-2 ####[facility]ATORYCLIA [id number] [address] Platelet mean volume (Bld) [Entitic vol] 8.8 fL Low 9.0-12.7 [facility] Comment on above: Order Comment: Speci men Type: BLOOD SPECIMENOrdering Facility: [facility] Address: [address] [place] [address] Performed By: #### 5 8410-2 ####[facility]ORATORYCLIA [id number] [address] [place] Platelets (Bld) [#/Vol] 172 10*3/uL Normal 150-400 [facility] Comment on above: Order Comment: Speci men Type: BLOOD SPECIMENOrdering Facility: [facility] Address: [address] [place] [address] Performed By: #### 5 8410-2 ####[facility]ORATORYCLIA [id number] [place] [address] [place] RBC (Bld) [#/Vol] 2.58 10*6/uL Low 4.20-6.00 [facility] Comment on above: Order Comment: Speci men Type: BLOOD SPECIMENOrdering Facility: [facility] Address: [address] [place] [address] Performed By: #### 5 8410-2 ####[facility]ORATORYCLIA [id number] [place] [address] [place] WBC (Bld) [#/Vol] 18.54 10*3/uL High 3.70-11.00 [facility] Comment on above: Order Comment: Speci men Type: BLOOD SPECIMENOrdering Facility: [facility] Address: [address] [place] [address] Performed By: #### 5 8410-2 ####[facility]ORATORYCLIA [id number] [address] CONSULT PROGon 08-31-2024 CONSULT PROG Normal [facility] Magnesium SerPl-mCncon 08-31 Magnesium [Mass/Vol] 1.9 mg/dL Normal 1.7-2.3 [facility] Comment on above: Order Comment: Speci men Type: BLOOD SPECIMENOrdering Facility: [facility] Address: [address] [place] [address] Performed By: #### 2 4321-2, 69606-1 ####[facility]ATORYCLIA [id number] [address] [place] NUTRITIONon 08-31-2024 NUTRITION Normal [facility] XR CHEST 1V FRONTALon 2024 XR CHEST 1V FRONTAL Normal [facility] ANES POSTPROC EVALon 025 ANES POSTPROC EVAL Normal [facility] ANES PRE-OPon 08-30-2024 ANES PRE-OP Normal [facility] ARTERIAL BLOOD GASESon 08-30 Base deficit (BldA) [Moles/Vol] -2 mmol/L Normal -2-0 [facility] Comment on above: Order Comment: Speci men Type: ARTERIAL BLOOD SPECIMENOrdering Facility: [facility] Address: [address] [place] [address] Performed By: #### A LLBG ####[facility]ORATORYCLIA [id number] [address] Body temperature 98.6 [degF] Normal [facility] Comment on above: Order Comment: Speci men Type: ARTERIAL BLOOD SPECIMENOrdering Facility: [facility] Address: [address] [place] [address] Performed By: #### A LLBG ####[facility]ORATORYCLIA [id number] [address] OF [facility] Calcium.ionized (BldV) [Mass/Vol] 1.28 mmol/L Normal 1.08-1.30 [facility] Comment on above: Order Comment: Speci men Type: ARTERIAL BLOOD SPECIMENOrdering Facility: [facility] Address: [address] [place] [address] Performed By: #### A LLBG ####[facility]ATORYCLIA [id number] [address] Calcium.ionized adjusted to pH 7.4 (BldA) [Moles/Vol] 1.26 mmol/L Normal 1.08-1.30 [facility] Comment on above: Order Comment: Speci men Type: ARTERIAL BLOOD SPECIMENOrdering Facility: [facility] Address: [address] [place] [address] Performed By: #### A LLBG ####[facility]ATORYCLIA [id number] [address] [place] Carboxyhemoglobin (BldA) [Mass fraction] 1.8 % Normal 0.0-2.0 [facility] Comment on above: Order Comment: Speci men Type: ARTERIAL BLOOD SPECIMENOrdering Facility: [facility] Address: [address] [place] [address] Result Comment: Carb oxyhemoglobin Reference Range for Smokers: 2.0-8.0% Performed By: #### A LLBG ####[facility]ORATORYCLIA [id number] [place] [address] [place] Chloride [Moles/Vol] 105 mmol/L Normal 97-105 [facility] Comment on above: Order Comment: Speci men Type: ARTERIAL BLOOD SPECIMENOrdering Facility: [facility] Address: [address] [place] [address] Performed By: #### A LLBG ####[facility]ATORYCLIA [id number] [address] [place] CO2 (Bld) [Partial pressure] 40 mm Hg Normal 36-46 [facility] Comment on above: Order Comment: Speci men Type: ARTERIAL BLOOD SPECIMENOrdering Facility: [facility] Address: [address] [place] [address] Performed By: #### A LLBG ####[facility]ATORYCLIA [id number] [address] [place] Glucose [Mass/Vol] 137 mg/dL High 60-105 [facility] Comment on above: Order Comment: Speci men Type: ARTERIAL BLOOD SPECIMENOrdering Facility: [facility] Address: [address] [place] [address] Performed By: #### A LLBG ####[facility]ATORYCLIA [id number] [address] [place] HCO3 (Bld) [Moles/Vol] 22 mmol/L Normal 22-26 [facility] Comment on above: Order Comment: Speci men Type: ARTERIAL BLOOD SPECIMENOrdering Facility: [facility] Address: [address] [place] [address] Performed By: #### A LLBG ####[facility]ORATORYCLIA [id number] [address] [place] Hematocrit (Bld) [Volume fraction] 27.9 % Low 39.0-51.0 [facility] Comment on above: Order Comment: Speci men Type: ARTERIAL BLOOD SPECIMENOrdering Facility: [facility] Address: [address] [place] [address] Performed By: #### A LLBG ####[facility]ORATORYCLIA [id number] [address] [place] Hemoglobin (Bld) [Mass/Vol] 9.0 g/dL Low 13.0-17.0 [facility] Comment on above: Order Comment: Speci men Type: ARTERIAL BLOOD SPECIMENOrdering Facility: [facility] Address: [address] [place] [address] Performed By: #### A LLBG ####[facility]ATORYCLIA [id number] [address] OF [facility] Lactate [Moles/Vol] 1.6 mmol/L Normal 0.5-2.2 [facility] Comment on above: Order Comment: Speci men Type: ARTERIAL BLOOD SPECIMENOrdering Facility: [facility] Address: [address] [place] [address] Performed By: #### A LLBG ####[facility]ATORYCLIA [id number] [address] Methemoglobin (Bld) [Mass fraction] 0.7 % Normal 0.0-1.5 [facility] Comment on above: Order Comment: Speci men Type: ARTERIAL BLOOD SPECIMENOrdering Facility: [facility] Address: [address] [place] [address] Performed By: #### A LLBG ####[facility]ATORYCLIA [id number] [address] O2 THERAPY NC = Nasal Cannula Normal [facility] Comment on above: Order Comment: Speci men Type: ARTERIAL BLOOD SPECIMENOrdering Facility: [facility] Address: [address] [place] [address] Performed By: #### A LLBG ####[facility]ORATORYCLIA [id number] [address] Oxygen (Bld) [Partial pressure] 92 mm Hg Normal 85-95 [facility] Comment on above: Order Comment: Speci men Type: ARTERIAL BLOOD SPECIMENOrdering Facility: [facility] Address: [address] [place] [address] Performed By: #### A LLBG ####[facility]ATORYCLIA [id number] [address] [place] Oxyhemoglobin (BldA) [Mass fraction] 95 % Normal 95-98 [facility] Comment on above: Order Comment: Speci men Type: ARTERIAL BLOOD SPECIMENOrdering Facility: [facility] Address: [address] [place] [address] Performed By: #### A LLBG ####[facility]ATORYCLIA [id number] [place] [address] [place] pH (Bld) 7.37 [pH] Normal 7.35-7.45 [facility] Comment on above: Order Comment: Speci men Type: ARTERIAL BLOOD SPECIMENOrdering Facility: [facility] Address: [address] [place] [address] Performed By: #### A LLBG ####[facility]ATORYCLIA [id number] [address] [place] Potassium [Moles/Vol] 4.7 mmol/L Normal 3.5-5.0 [facility] Comment on above: Order Comment: Speci men Type: ARTERIAL BLOOD SPECIMENOrdering Facility: [facility] Address: [address] [place] [address] Performed By: #### A LLBG ####[facility]ATORYCLIA [id number] [address] [place] Sodium [Moles/Vol] 133 mmol/L Low 136-144 [facility] Comment on above: Order Comment: Speci men Type: ARTERIAL BLOOD SPECIMENOrdering Facility: [facility] Address: [address] [place] [address] Performed By: #### A LLBG ####[facility]ATORYCLIA [id number] [address] [place] Base deficit (BldA) [Moles/Vol] -3 mmol/L Low -2-0 [facility] Comment on above: Order Comment: Speci men Type: ARTERIAL BLOOD SPECIMENOrdering Facility: [facility] Address: [address] [place] [address] Performed By: #### A LLBG ####[facility]ATORYCLIA [id number] [address] Body temperature 98.6 [degF] Normal [facility] Comment on above: Order Comment: Speci men Type: ARTERIAL BLOOD SPECIMENOrdering Facility: [facility] Address: [address] [place] [address] Performed By: #### A LLBG ####[facility]ATORYCLIA [id number] [address] Calcium.ionized (BldV) [Mass/Vol] 1.33 mmol/L High 1.08-1.30 [facility] Comment on above: Order Comment: Speci men Type: ARTERIAL BLOOD SPECIMENOrdering Facility: [facility] Address: [address] [place] [address] Performed By: #### A LLBG ####[facility]ATORYCLIA [id number] [address] Calcium.ionized adjusted to pH 7.4 (BldA) [Moles/Vol] 1.29 mmol/L Normal 1.08-1.30 [facility] Comment on above: Order Comment: Speci men Type: ARTERIAL BLOOD SPECIMENOrdering Facility: [facility] Address: [address] [place] [address] Performed By: #### A LLBG ####[facility]ATORYCLIA [id number] [address] [place] Carboxyhemoglobin (BldA) [Mass fraction] 2.2 % High 0.0-2.0 [facility] Comment on above: Order Comment: Speci men Type: ARTERIAL BLOOD SPECIMENOrdering Facility: [facility] Address: [address] [place] [address] Result Comment: Carb oxyhemoglobin Reference Range for Smokers: 2.0-8.0% Performed By: #### A LLBG ####[facility]ORATORYCLIA [id number] [place] [address] [place] Chloride [Moles/Vol] 105 mmol/L Normal 97-105 [facility] Comment on above: Order Comment: Speci men Type: ARTERIAL BLOOD SPECIMENOrdering Facility: [facility] Address: [address] [place] [address] Performed By: #### A LLBG ####[facility]ORATORYCLIA [id number] [address] [place] CO2 (Bld) [Partial pressure] 43 mm Hg Normal 36-46 [facility] Comment on above: Order Comment: Speci men Type: ARTERIAL BLOOD SPECIMENOrdering Facility: [facility] Address: [address] [place] [address] Performed By: #### A LLBG ####[facility]ATORYCLIA [id number] [address] [place] Glucose [Mass/Vol] 150 mg/dL High 60-105 [facility] Comment on above: Order Comment: Speci men Type: ARTERIAL BLOOD SPECIMENOrdering Facility: [facility] Address: [address] [place] [address] Performed By: #### A LLBG ####[facility]ATORYCLIA [id number] [address] [place] HCO3 (Bld) [Moles/Vol] 23 mmol/L Normal 22-26 [facility] Comment on above: Order Comment: Speci men Type: ARTERIAL BLOOD SPECIMENOrdering Facility: [facility] Address: [address] [place] [address] Performed By: #### A LLBG ####[facility]ORATORYCLIA [id number] [address] [place] Hematocrit (Bld) [Volume fraction] 31.3 % Low 39.0-51.0 [facility] Comment on above: Order Comment: Speci men Type: ARTERIAL BLOOD SPECIMENOrdering Facility: [facility] Address: [address] [place] [address] Performed By: #### A LLBG ####[facility]ORATORYCLIA [id number] [address] [place] Hemoglobin (Bld) [Mass/Vol] 10.1 g/dL Low 13.0-17.0 [facility] Comment on above: Order Comment: Speci men Type: ARTERIAL BLOOD SPECIMENOrdering Facility: [facility] Address: [address] [place] [address] Performed By: #### A LLBG ####[facility]ATORYCLIA [id number] [address] [place] Lactate [Moles/Vol] 1.9 mmol/L Normal 0.5-2.2 [facility] Comment on above: Order Comment: Speci men Type: ARTERIAL BLOOD SPECIMENOrdering Facility: [facility] Address: [address] [place] [address] Performed By: #### A LLBG ####[facility]ATORYCLIA [id number] [address] [place] Methemoglobin (Bld) [Mass fraction] 0.7 % Normal 0.0-1.5 [facility] Comment on above: Order Comment: Speci men Type: ARTERIAL BLOOD SPECIMENOrdering Facility: [facility] Address: [address] [place] [address] Performed By: #### A LLBG ####[facility]ORATORYCLIA [id number] [address] [place] O2 THERAPY VENT=Ventilator Normal [facility] Comment on above: Order Comment: Speci men Type: ARTERIAL BLOOD SPECIMENOrdering Facility: [facility] Address: [address] [place] [address] Performed By: #### A LLBG ####[facility]ORATORYCLIA [id number] [address] [place] Oxygen (Bld) [Partial pressure] 100 mm Hg High 85-95 [facility] Comment on above: Order Comment: Speci men Type: ARTERIAL BLOOD SPECIMENOrdering Facility: [facility] Address: [address] [place] [address] Performed By: #### A LLBG ####[facility]ORATORYCLIA [id number] [address] [place] Oxyhemoglobin (BldA) [Mass fraction] 95 % Normal 95-98 [facility] Comment on above: Order Comment: Speci men Type: ARTERIAL BLOOD SPECIMENOrdering Facility: [facility] Address: [address] [place] [address] Performed By: #### A LLBG ####[facility]ORATORYCLIA [id number] [place] [address] [place] pH (Bld) 7.34 [pH] Low 7.35-7.45 [facility] Comment on above: Order Comment: Speci men Type: ARTERIAL BLOOD SPECIMENOrdering Facility: [facility] Address: [address] [place] [address] Performed By: #### A LLBG ####[facility]ATORYCLIA [id number] [address] [place] Potassium [Moles/Vol] 3.8 mmol/L Normal 3.5-5.0 [facility] Comment on above: Order Comment: Speci men Type: ARTERIAL BLOOD SPECIMENOrdering Facility: [facility] Address: [address] [place] [address] Performed By: #### A LLBG ####[facility]ORATORYCLIA [id number] [place] [address] [place] Sodium [Moles/Vol] 135 mmol/L Low 136-144 [facility] Comment on above: Order Comment: Speci men Type: ARTERIAL BLOOD SPECIMENOrdering Facility: [facility] Address: [address] [place] [address] Performed By: #### A LLBG ####[facility]ORATORYCLIA [id number] [place] [address] [place] Basic metabolic 2000 panelon 08-30-2024 Anion gap [Moles/Vol] 7 mmol/L Low 8-15 [facility] Comment on above: Order Comment: Speci men Type: BLOOD SPECIMENOrdering Facility: [facility] Address: [address] [place] [address] Performed By: #### 1 9123-9, 39009-2 ####[facility]ORATORYCLIA [id number] [place] [address] [place] Calcium [Mass/Vol] 9.2 mg/dL Normal 8.5-10.2 [facility] Comment on above: Order Comment: Speci men Type: BLOOD SPECIMENOrdering Facility: [facility] Address: [address] [place] [address] Performed By: #### 1 9123-9, 70997-9 ####[facility]ATORYCLIA [id number] [place] [address] [place] Chloride [Moles/Vol] 104 mmol/L Normal 98-107 [facility] Comment on above: Order Comment: Speci men Type: BLOOD SPECIMENOrdering Facility: [facility] Address: [address] [place] [address] Performed By: #### 1 91239, 09050-2 ####[facility]ORATORYCLIA [id number] [place] [address] [place] CO2 [Moles/Vol] 23 mmol/L Normal 22-30 [facility] Comment on above: Order Comment: Speci men Type: BLOOD SPECIMENOrdering Facility: [facility] Address: [address] [place] [address] Performed By: #### 1 91239, 87009-7 ####[facility]ATORYCLIA [id number] [place] [address] [place] Creatinine [Mass/Vol] 1.15 mg/dL Normal 0.73-1.22 [facility] Comment on above: Order Comment: Speci men Type: BLOOD SPECIMENOrdering Facility: [facility] Address: [address] [place] [address] Performed By: #### 1 9123-9, 26831-6 ####[facility]ORATORYCLIA [id number] [place] [address] [place] Creatinine and Glomerular filtration rate.predicted panel (S/P/Bld) 69 mL/min/1.73m??? Normal >=60 [facility] Comment on above: Order Comment: Yojana riggins Type: BLOOD SPECIMENOrdering Facility: [facility] Address: [address] [place] [address] Result Comment: Apple mated Glomerular Filtration Rate (eGFR) is calculated using the 2020 CKD-EPI creatinine equation. This equation utilizes serum creatinine, sex, and age as parameters. The creatinine assay has traceable calibration to isotope dilution-mass spectrometry. Refer to KDIGO guidelines for clinical interpretation. In patients with unstable renal function, e.g. those with acute kidney injury, the eGFR may not accurately reflect actual GFR. Performed By: #### 1 9123-9, 83313-0 ####[facility]ORATORYCLIA [id number] [place] [address] [place] Glucose [Mass/Vol] 152 mg/dL High 74-99 [facility] Comment on above: Order Comment: Yojana riggins Type: BLOOD SPECIMENOrdering Facility: [facility] Address: [address] [place] [address] Result Comment: The [place] [employer] (ADA) provides guidance for cutoff values for fasting glucose and random glucose. The ADA defines fasting as no caloric intake for at least 8 hours. Fasting plasma glucose results between 100 to 125 mg/dL indicate increased risk for diabetes (prediabetes).Fasting plasma glucose results greater than or equal to 126 mg/dL meet the criteria for diagnosis of diabetes. In the absence of unequivocal hyperglycemia, results should be confirmed by repeat testing. In a patient with classic symptoms of hyperglycemia or hyperglycemic crisis, random plasma glucose results greater than or equal to 200 mg/dL meet the criteria for diagnosis of diabetes.Reference: Standards of Medical Care in Diabetes 2016, [place] [employer]. Diabetes Care. 2016.39(Suppl 1). Performed By: #### 1 9123-9, 83663-9 ####[facility]ORATORYCLIA [id number] [place] [address] [place] Potassium [Moles/Vol] 3.9 mmol/L Normal 3.7-5.1 [facility] Comment on above: Order Comment: Yojana riggins Type: BLOOD SPECIMENOrdering Facility: [facility] Address: [address] [place] [address] Performed By: #### 1 9123-9, 77910-7 ####[facility]ORATORYCLIA [id number] [place] [address] [place] Sodium [Moles/Vol] 134 mmol/L Low 136-144 [facility] Comment on above: Order Comment: Speci men Type: BLOOD SPECIMENOrdering Facility: [facility] Address: [address] [place] [address] Performed By: #### 1 9123-9, 66382-4 ####[facility]ORATORYCLIA [id number] [place] [address] [place] Urea nitrogen [Mass/Vol] 12 mg/dL Normal 9-24 [facility] Comment on above: Order Comment: Speci men Type: BLOOD SPECIMENOrdering Facility: [facility] Address: [address] [place] [address] Performed By: #### 1 9123-9, 93472-1 ####[facility]ORATORYCLIA [id number] [place] [address] [place] Anion gap [Moles/Vol] 9 mmol/L Normal 8-15 [facility] Comment on above: Order Comment: Speci men Type: BLOOD SPECIMENOrdering Facility: [facility] Address: [address] [place] [address] Performed By: #### 2 4321-2 ####[facility]ORATORYCLIA [id number] [place] [address] [place] Calcium [Mass/Vol] 9.2 mg/dL Normal 8.5-10.2 [facility] Comment on above: Order Comment: Speci men Type: BLOOD SPECIMENOrdering Facility: [facility] Address: [address] [place] [address] Performed By: #### 2 4321-2 ####[facility] LABORATORYCLIA [id number] [place] [address] [place] Chloride [Moles/Vol] 100 mmol/L Normal 98-107 [facility] Comment on above: Order Comment: Speci men Type: BLOOD SPECIMENOrdering Facility: [facility] Address: [address] [place] [address] Performed By: #### 2 4321-2 ####[facility]ORATORYCLIA [id number] [place] [id number] [place] CO2 [Moles/Vol] 25 mmol/L Normal 22-30 [facility] Comment on above: Order Comment: Speci men Type: BLOOD SPECIMENOrdering Facility: [facility] Address: [address] [place] [address] Performed By: #### 2 4321-2 ####[facility]ORATORYCLIA [id number] [address] [place] Creatinine [Mass/Vol] 1.14 mg/dL Normal 0.73-1.22 [facility] Comment on above: Order Comment: Speci men Type: BLOOD SPECIMENOrdering Facility: [facility] Address: [address] [place] [address] Performed By: #### 2 4321-2 ####[facility]ORATORYCLIA [id number] [address] Creatinine and Glomerular filtration rate.predicted panel (S/P/Bld) 70 mL/min/1.73m??? Normal >=60 [facility] Comment on above: Order Comment: Speci men Type: BLOOD SPECIMENOrdering Facility: [facility] Address: [address] [place] [address] Result Comment: Apple mated Glomerular Filtration Rate (eGFR) is calculated using the 2020 CKD-EPI creatinine equation. This equation utilizes serum creatinine, sex, and age as parameters. The creatinine assay has traceable calibration to isotope dilution-mass spectrometry. Refer to KDIGO guidelines for clinical interpretation. In patients with unstable renal function, e.g. those with acute kidney injury, the eGFR may not accurately reflect actual GFR. Performed By: #### 2 4321-2 ####[facility]ATORYCLIA [id number] [address] [place] Glucose [Mass/Vol] 159 mg/dL High 74-99 [facility] Comment on above: Order Comment: Speci men Type: BLOOD SPECIMENOrdering Facility: [facility] Address: [address] [place] [address] Result Comment: The [place] Diabetes Association (ADA) provides guidance for cutoff values for fasting glucose and random glucose. The ADA defines fasting as no caloric intake for at least 8 hours. Fasting plasma glucose results between 100 to 125 mg/dL indicate increased risk for diabetes (prediabetes).Fasting plasma glucose results greater than or equal to 126 mg/dL meet the criteria for diagnosis of diabetes. In the absence of unequivocal hyperglycemia, results should be confirmed by repeat testing. In a patient with classic symptoms of hyperglycemia or hyperglycemic crisis, random plasma glucose results greater than or equal to 200 mg/dL meet the criteria for diagnosis of diabetes.Reference: Standards of Medical Care in Diabetes 2016, [place] [employer]. Diabetes Care. 2016.39(Suppl 1). Performed By: #### 2 4321-2 ####[facility]ORATORYCLIA [id number] [place] [address] [place] Potassium [Moles/Vol] 4.3 mmol/L Normal 3.7-5.1 [facility] Comment on above: Order Comment: Simrani men Type: BLOOD SPECIMENOrdering Facility: [facility] Address: [address] [place] [address] Performed By: #### 2 4321-2 ####[facility]ORATORYCLIA [id number] [place] [address] [place] Sodium [Moles/Vol] 134 mmol/L Low 136-144 [facility] Comment on above: Order Comment: Speci men Type: BLOOD SPECIMENOrdering Facility: [facility] Address: [address] [place] [address] Performed By: #### 2 4321-2 ####[facility]ORATORYCLIA [id number] [place] [address] [place] Urea nitrogen [Mass/Vol] 13 mg/dL Normal 9-24 [facility] Comment on above: Order Comment: Speci men Type: BLOOD SPECIMENOrdering Facility: [facility] Address: [address] [place] [address] Performed By: #### 2 4321-2 ####[facility]ORATORYCLIA [id number] [address] CBC panel Auto (Bld)on 08-30 Erythrocyte distribution width (RBC) [Ratio] 14.6 % Normal 11.5-15.0 [facility] Comment on above: Order Comment: Speci men Type: BLOOD SPECIMENOrdering Facility: [facility] Address: [address] [place] [address] Performed By: #### 5 8410-2 ####[facility]ORATORYCLIA [id number] [address] Hematocrit (Bld) [Volume fraction] 29.4 % Low 39.0-51.0 [facility] Comment on above: Order Comment: Speci men Type: BLOOD SPECIMENOrdering Facility: [facility] Address: [address] [place] [address] Performed By: #### 5 8410-2 ####[facility]ORATORYCLIA [id number] [address] Hemoglobin (Bld) [Mass/Vol] 10.0 g/dL Low 13.0-17.0 [facility] Comment on above: Order Comment: Speci men Type: BLOOD SPECIMENOrdering Facility: [facility] Address: [address] [place] [address] Performed By: #### 5 8410-2 ####[facility]ORATORYCLIA [id number] [address] MCH (RBC) [Entitic mass] 31.2 pg Normal 26.0-34.0 [facility] Comment on above: Order Comment: Speci men Type: BLOOD SPECIMENOrdering Facility: [facility] Address: [address] [place] [address] Performed By: #### 5 8410-2 ####[facility]ATORYCLIA [id number] [address] MCHC (RBC) [Mass/Vol] 34.0 g/dL Normal 30.5-36.0 [facility] Comment on above: Order Comment: Speci men Type: BLOOD SPECIMENOrdering Facility: [facility] Address: [facility] [place] [address] Performed By: #### 5 8410-2 ####[facility]ORATORYCLIA [id number] [address] [place] MCV (RBC) [Entitic vol] 91.6 fL Normal 80.0-100.0 [facility] Comment on above: Order Comment: Speci men Type: BLOOD SPECIMENOrdering Facility: [facility] Address: [address] [place] [address] Performed By: #### 5 8410-2 ####[facility]ORATORYCLIA [id number] [address] [facility] Nucleated RBC (Bld) [#/Vol] 10*3/uL Normal <0.01 [facility] Comment on above: Order Comment: Speci men Type: BLOOD SPECIMENOrdering Facility: [facility] Address: [address] [place] [address] Performed By: #### 5 8410-2 ####[facility]ATORYCLIA [id number] [address] [place] Platelet mean volume (Bld) [Entitic vol] 8.4 fL Low 9.0-12.7 [facility] Comment on above: Order Comment: Speci men Type: BLOOD SPECIMENOrdering Facility: [facility] Address: [address] [place] [address] Performed By: #### 5 8410-2 ####[facility]ATORYCLIA [id number] [address] [place] Platelets (Bld) [#/Vol] 155 10*3/uL Normal 150-400 [facility] Comment on above: Order Comment: Speci men Type: BLOOD SPECIMENOrdering Facility: [facility] Address: [address] [place] [address] Performed By: #### 5 8410-2 ####[facility]ATORYCLIA [id number] [address] [place] RBC (Bld) [#/Vol] 3.21 10*6/uL Low 4.20-6.00 [facility] Comment on above: Order Comment: Speci men Type: BLOOD SPECIMENOrdering Facility: [facility] Address: [address] [place] [address] Performed By: #### 5 8410-2 ####[facility]ATORYCLIA [id number] [address] [place] WBC (Bld) [#/Vol] 23.57 10*3/uL High 3.70-11.00 [facility] Comment on above: Order Comment: Speci men Type: BLOOD SPECIMENOrdering Facility: [facility] Address: [address] [place] [address] Performed By: #### 5 8410-2 ####[facility]ATORYCLIA [id number] [address] [place] Erythrocyte distribution width (RBC) [Ratio] 14.8 % Normal 11.5-15.0 [facility] Comment on above: Order Comment: Speci men Type: BLOOD SPECIMENOrdering Facility: [facility] Address: [address] [place] [address] Performed By: #### 5 8410-2 ####[facility]ATORYCLIA [id number] [address] [place] Hematocrit (Bld) [Volume fraction] 37.0 % Low 39.0-51.0 [facility] Comment on above: Order Comment: Speci men Type: BLOOD SPECIMENOrdering Facility: [facility] Address: [address] [place] [address] Performed By: #### 5 8410-2 ####[facility]ATORYCLIA [id number] [address] [place] Hemoglobin (Bld) [Mass/Vol] 12.7 g/dL Low 13.0-17.0 [facility] Comment on above: Order Comment: Speci men Type: BLOOD SPECIMENOrdering Facility: [facility] Address: [address] [place] [address] Performed By: #### 5 8410-2 ####[facility]ATORYCLIA [id number] [address] MCH (RBC) [Entitic mass] 30.8 pg Normal 26.0-34.0 [facility] Comment on above: Order Comment: Speci men Type: BLOOD SPECIMENOrdering Facility: [facility] Address: [address] [place] [address] Performed By: #### 5 8410-2 ####[facility]ATORYCLIA [id number] [address] MCHC (RBC) [Mass/Vol] 34.3 g/dL Normal 30.5-36.0 [facility] Comment on above: Order Comment: Speci men Type: BLOOD SPECIMENOrdering Facility: [facility] Address: [address] [place] [address] Performed By: #### 5 8410-2 ####[facility]ATORYCLIA [id number] [address] MCV (RBC) [Entitic vol] 89.8 fL Normal 80.0-100.0 [facility] Comment on above: Order Comment: Speci men Type: BLOOD SPECIMENOrdering Facility: [facility] Address: [address] [place] [address] Performed By: #### 5 8410-2 ####[facility]ATORYCLIA [id number] [address] Nucleated RBC (Bld) [#/Vol] 10*3/uL Normal <0.01 [facility] Comment on above: Order Comment: Speci men Type: BLOOD SPECIMENOrdering Facility: [facility] Address: [address] [place] [address] Performed By: #### 5 8410-2 ####[facility]ATORYCLIA [id number] [address] Platelet mean volume (Bld) [Entitic vol] 8.4 fL Low 9.0-12.7 [facility] Comment on above: Order Comment: Speci men Type: BLOOD SPECIMENOrdering Facility: [facility] Address: [address] [place] [address] Performed By: #### 5 8410-2 ####[facility]ATORYCLIA [id number] [address] [place] Platelets (Bld) [#/Vol] 188 10*3/uL Normal 150-400 [facility] Comment on above: Order Comment: Speci men Type: BLOOD SPECIMENOrdering Facility: [facility] Address: [address] [place] [address] Performed By: #### 5 8410-2 ####[facility]ATORYCLIA [id number] [place] [address] [place] RBC (Bld) [#/Vol] 4.12 10*6/uL Low 4.20-6.00 [facility] Comment on above: Order Comment: Speci men Type: BLOOD SPECIMENOrdering Facility: [facility] Address: [address] [place] [address] Performed By: #### 5 8410-2 ####[facility]ATORYCLIA [id number] [address] [place] WBC (Bld) [#/Vol] 6.87 10*3/uL Normal 3.70-11.00 [facility] Comment on above: Order Comment: Speci men Type: BLOOD SPECIMENOrdering Facility: [facility] Address: [address] [place] [address] Performed By: #### 5 8410-2 ####[facility]ATORYCLIA [id number] [address] [place] CONSULTon 08-30-2024 CONSULT Normal [facility] ECG COMPLETEon 08-30-2024 ECG COMPLETE Normal [facility] Fibrinogen PPP-mCncon 2024 Fibrinogen Coag (PPP) [Mass/Vol] 193 mg/dL Low 200-400 [facility] Comment on above: Order Comment: Speci men Type: BLOOD SPECIMENOrdering Facility: [facility] Address: [address] [place] [address] Performed By: #### 3 255-7 ####[facility]ORATORYCLIA [id number] [place] [id number] [facility] [place] INTRAOPERATIVE ECHO PREon INTRAOPERATIVE ECHO PRE Normal A [facility] Magnesium SerPl-mCncon 08-30 Magnesium [Mass/Vol] 1.8 mg/dL Normal 1.7-2.3 [facility] Comment on above: Order Comment: Yojana riggins Type: BLOOD SPECIMENOrdering Facility: [facility] Address: [address] [place] [address] Performed By: #### 1 9123-9, 87938-4 ####[facility]ATORYCLIA [id number] [address] OPERATIVE NOon 08-30-2024 OPERATIVE NO Normal [facility] PT panel Coag (PPP)on 2024 INR Coag (PPP) [Relative time] 1.2 {INR} Normal 0.9-1.3 [facility] Comment on above: Order Comment: Yojana riggins Type: BLOOD SPECIMENOrdering Facility: [facility] Address: [address] [place] [address] Result Comment: Trish min K Antagonist (VKA) Therapeutic Range: INR 2 to 3 (Target INR of 2.5)Note: For patients treated with VKA drugs, such as warfarin, the [place] [employer] 2012 Guideline recommends a therapeutic INR range of 2 to 3 (target INR of 2.5). This recommendation includes high-risk patients with antiphospholipid syndrome with previous arterial or venous thromboembolism, current-generation mechanical or bioprosthetic aortic heart valve replacement.Note: Patients with mechanical aortic valve replacement and additional risk factors for thromboembolic events (atrial fibrillation, previous thromboembolism, LV dysfunction, hypercoagulable conditions) or an older generation mechanical AVR (i.e., ball in-Cage) or any mechanical MVR should have a INR therapeutic range of 2.5 to 3.5 (target INR of 3).Marti GH, et al. Chest 2012, 141:7S-47SNishimura RA, et al. [facility] 2017, 70: 252-289 Performed By: #### 3 4528-0, 05629-9 ####[facility]ORATORYCLIA [id number] [address] OF [facility] PT Coag (PPP) [Time] 13.1 s High 9.7-13.0 [facility] Comment on above: Order Comment: Speci men Type: BLOOD SPECIMENOrdering Facility: [facility] Address: [address] [place] [address] Performed By: #### 3 4528-0, 47089-1 ####[facility]ATORYCLIA [id number] [address] Platelets Auto (Bld) [#/Vol] on 08-30-2024 Platelets (Bld) [#/Vol] 134 10*3/uL Low 150-400 [facility] Comment on above: Order Comment: Speci men Type: BLOOD SPECIMENOrdering Facility: [facility] Address: [address] [place] [address] Performed By: #### 7 77-3 ####[facility]CL[facility] [id number] [address] [facility] XR CHEST 1V FRONTALon 2024 XR CHEST 1V FRONTAL Normal [facility] aPTT PPPon 08-30-2024 aPTT Coag (PPP) [Time] 32.2 s Normal 23.0-32.4 [facility] Comment on above: Order Comment: Speci men Type: BLOOD SPECIMENOrdering Facility: [facility] Address: [address] [place] [address] Performed By: #### 3 4528-0, 61327-3 ####[facility] LABORATORYCLIA [id number] [address] CASE MANAGEMon 08-29-2024 CASE MANAGEM Normal [facility] CBC panel Auto (Bld)on 08-29 Erythrocyte distribution width (RBC) [Ratio] 14.7 % Normal 11.5-15.0 [facility] Comment on above: Order Comment: Speci men Type: BLOOD SPECIMENOrdering Facility: [facility] Address: [address] [place] [address] Performed By: #### 5 8410-2 ####[facility] LABORATORYCLIA [id number] [address] [place] Hematocrit (Bld) [Volume fraction] 34.7 % Low 39.0-51.0 [facility] Comment on above: Order Comment: Speci men Type: BLOOD SPECIMENOrdering Facility: [facility] Address: [address] [place] [address] Performed By: #### 5 8410-2 ####[facility] LABORATORYCLIA [id number] [address] [place] Hemoglobin (Bld) [Mass/Vol] 11.9 g/dL Low 13.0-17.0 [facility] Comment on above: Order Comment: Speci men Type: BLOOD SPECIMENOrdering Facility: [facility] Address: [address] [place] [address] Performed By: #### 5 8410-2 ####[facility] LABORATORYCLIA [id number] [address] [place] MCH (RBC) [Entitic mass] 30.5 pg Normal 26.0-34.0 [facility] Comment on above: Order Comment: Speci men Type: BLOOD SPECIMENOrdering Facility: [facility] Address: [address] [place] [address] Performed By: #### 5 8410-2 ####[facility] LABORATORYCLIA [id number] [address] [place] MCHC (RBC) [Mass/Vol] 34.3 g/dL Normal 30.5-36.0 [facility] Comment on above: Order Comment: Speci men Type: BLOOD SPECIMENOrdering Facility: [facility] Address: [address] [place] [address] Performed By: #### 5 8410-2 ####[facility] LABORATORYCLIA [id number] [address] STATES OF [facility] MCV (RBC) [Entitic vol] 89.0 fL Normal 80.0-100.0 A [facility] Comment on above: Order Comment: Speci men Type: BLOOD SPECIMENOrdering Facility: [facility] Address: [address] [place] [address] Performed By: #### 5 8410-2 ####[facility] LABORATORYCLIA [id number] [address] Nucleated RBC (Bld) [#/Vol] 10*3/uL Normal <0.01 [facility] Comment on above: Order Comment: Speci men Type: BLOOD SPECIMENOrdering Facility: [facility] Address: [address] [place] [address] Performed By: #### 5 8410-2 ####[facility] LABORATORYCLIA [id number] [address] Platelet mean volume (Bld) [Entitic vol] 8.3 fL Low 9.0-12.7 [facility] Comment on above: Order Comment: Speci men Type: BLOOD SPECIMENOrdering Facility: [facility] Address: [address] [place] [address] Performed By: #### 5 8410-2 ####[facility] LABORATORYCLIA [id number] [address] Platelets (Bld) [#/Vol] 184 10*3/uL Normal 150-400 [facility] Comment on above: Order Comment: Speci men Type: BLOOD SPECIMENOrdering Facility: [facility] Address: [address] [place] [address] Performed By: #### 5 8410-2 ####[facility] LABORATORYCLIA [id number] [address] [place] RBC (Bld) [#/Vol] 3.90 10*6/uL Low 4.20-6.00 [facility] Comment on above: Order Comment: Speci men Type: BLOOD SPECIMENOrdering Facility: [facility] Address: [address] [place] [address] Performed By: #### 5 8410-2 ####[facility] LABORATORYCLIA [id number] [address] WBC (Bld) [#/Vol] 6.63 10*3/uL Normal 3.70-11.00 [facility] Comment on above: Order Comment: Speci men Type: BLOOD SPECIMENOrdering Facility: [facility] Address: [address] [place] [address] Performed By: #### 5 8410-2 ####[facility] LABORATORYCLIA [id number] [address] CONSULT PROGon 08-29-2024 CONSULT PROG Normal [facility] TYPE + SCREENon 08-29-2024 ABO O Normal [facility] Comment on above: Order Comment: Speci men Type: BLOOD SPECIMENOrdering Facility: [facility] Address: [address] [place] [address] Performed By: #### T SCR ####[facility] BLOOD BANKCLIA [id number] [address] Rh Nom (Bld) Positive Normal [facility] Comment on above: Order Comment: Speci men Type: BLOOD SPECIMENOrdering Facility: [facility] Address: [address] [place] [address] Performed By: #### T SCR ####[facility] BLOOD BANKCLIA [id number] [address] TYPE AND SCREEN EXPIRATION 09/01/2024 23:59 Normal [facility] Comment on above: Order Comment: Speci men Type: BLOOD SPECIMENOrdering Facility: [facility] Address: [address] [place] [address] Performed By: #### T SCR ####[facility] BLOOD BANKCLIA [id number] [address] [place] aPTT PPPon 08-29-2024 aPTT Coag (PPP) [Time] 58.7 s High 23.0-32.4 [facility] Comment on above: Order Comment: Speci men Type: BLOOD SPECIMENOrdering Facility: [facility] Address: [address] [place] [address] Performed By: #### 1 4979-9 ####[facility] LABORATORYCLIA [id number] [address] [place] CASE MANAGEMon 08-28-2024 CASE MANAGEM Normal [facility] CBC panel Auto (Bld)on 08-28 Erythrocyte distribution width (RBC) [Ratio] 14.2 % Normal 11.5-15.0 [facility] Comment on above: Order Comment: Speci men Type: BLOOD SPECIMENOrdering Facility: [facility] Address: [address] [place] [address] Performed By: #### 5 8410-2 ####[facility] LABORATORYCLIA [id number] [address] [place] Hematocrit (Bld) [Volume fraction] 35.2 % Low 39.0-51.0 [facility] Comment on above: Order Comment: Speci men Type: BLOOD SPECIMENOrdering Facility: [facility] Address: [address] [place] [address] Performed By: #### 5 8410-2 ####[facility] LABORATORYCLIA [id number] [address] [place] Hemoglobin (Bld) [Mass/Vol] 11.7 g/dL Low 13.0-17.0 [facility] Comment on above: Order Comment: Speci men Type: BLOOD SPECIMENOrdering Facility: [facility] Address: [address] [place] [address] Performed By: #### 5 8410-2 ####[facility] LABORATORYCLIA [id number] [address] [place] MCH (RBC) [Entitic mass] 30.7 pg Normal 26.0-34.0 [facility] Comment on above: Order Comment: Speci men Type: BLOOD SPECIMENOrdering Facility: [facility] Address: [address] [place] [address] Performed By: #### 5 8410-2 ####[facility] LABORATORYCLIA [id number] [address] MCHC (RBC) [Mass/Vol] 33.2 g/dL Normal 30.5-36.0 [facility] Comment on above: Order Comment: Speci men Type: BLOOD SPECIMENOrdering Facility: [facility] Address: [address] [place] [address] Performed By: #### 5 8410-2 ####[facility] LABORATORYCLIA [id number] [address] MCV (RBC) [Entitic vol] 92.4 fL Normal 80.0-100.0 [facility] Comment on above: Order Comment: Speci men Type: BLOOD SPECIMENOrdering Facility: [facility] Address: [address] [place] [address] Performed By: #### 5 8410-2 ####[facility] LABORATORYCLIA [id number] [address] Nucleated RBC (Bld) [#/Vol] 10*3/uL Normal <0.01 [facility] Comment on above: Order Comment: Speci men Type: BLOOD SPECIMENOrdering Facility: [facility] Address: [address] [place] [address] Performed By: #### 5 8410-2 ####[facility] LABORATORYCLIA [id number] [address] Platelet mean volume (Bld) [Entitic vol] 8.6 fL Low 9.0-12.7 [facility] Comment on above: Order Comment: Speci men Type: BLOOD SPECIMENOrdering Facility: [facility] Address: [address] [place] [address] Performed By: #### 5 8410-2 ####[facility] LABORATORYCLIA [id number] [address] [place] Platelets (Bld) [#/Vol] 187 10*3/uL Normal 150-400 [facility] Comment on above: Order Comment: Speci men Type: BLOOD SPECIMENOrdering Facility: [facility] Address: [address] [place] [address] Performed By: #### 5 8410-2 ####[facility] LABORATORYCLIA [id number] [place] [address] [place] RBC (Bld) [#/Vol] 3.81 10*6/uL Low 4.20-6.00 [facility] Comment on above: Order Comment: Speci men Type: BLOOD SPECIMENOrdering Facility: [facility] Address: [address] [place] [address] Performed By: #### 5 8410-2 ####[facility] LABORATORYCLIA [id number] [address] STATES OF [facility] WBC (Bld) [#/Vol] 6.80 10*3/uL Normal 3.70-11.00 [facility] Comment on above: Order Comment: Speci men Type: BLOOD SPECIMENOrdering Facility: [facility] Address: [address] [place] [address] Performed By: #### 5 8410-2 ####[facility] LABORATORYCLIA [id number] [address] [place] aPTT PPPon 08-28-2024 aPTT Coag (PPP) [Time] 52.0 s High 23.0-32.4 [facility] Comment on above: Order Comment: Speci men Type: BLOOD SPECIMENOrdering Facility: [facility] Address: [address] [place] [address] Performed By: #### 1 4979-9 ####[facility] LABORATORYCLIA [id number] [address] aPTT Coag (PPP) [Time] 73.7 s High 23.0-32.4 [facility] Comment on above: Order Comment: Speci men Type: BLOOD SPECIMENOrdering Facility: [facility] Address: [address] [place] [address] Performed By: #### 1 4979-9 ####[facility] LABORATORYCLIA [id number] [address] STATES OF [facility] aPTT Coag (PPP) [Time] 47.0 s High 23.0-32.4 [facility] Comment on above: Order Comment: Speci men Type: BLOOD SPECIMENOrdering Facility: [facility] Address: [address] [place] [address] Performed By: #### 1 4979-9 ####[facility] LABORATORYCLIA [id number] [address] CBC panel Auto (Bld)on 08-27 Erythrocyte distribution width (RBC) [Ratio] 14.2 % Normal 11.5-15.0 [facility] Comment on above: Order Comment: Speci men Type: BLOOD SPECIMENOrdering Facility: [facility] Address: [address] [place] [address] Performed By: #### 5 8410-2 ####[facility]UNSTERCLIA [id number] [address] STATES OF [facility] Hematocrit (Bld) [Volume fraction] 35.8 % Low 39.0-51.0 [facility] Comment on above: Order Comment: Speci men Type: BLOOD SPECIMENOrdering Facility: [facility] Address: [address] [place] [address] Performed By: #### 5 8410-2 ####[facility] LABORATORYCLIA [id number] [address] [place] Hemoglobin (Bld) [Mass/Vol] 11.9 g/dL Low 13.0-17.0 [facility] Comment on above: Order Comment: Speci men Type: BLOOD SPECIMENOrdering Facility: [facility] Address: [address] [place] [address] Performed By: #### 5 8410-2 ####[facility] LABORATORYCLIA [id number] [address] [place] MCH (RBC) [Entitic mass] 30.4 pg Normal 26.0-34.0 [facility] Comment on above: Order Comment: Speci men Type: BLOOD SPECIMENOrdering Facility: [facility] Address: [address] [place] [address] Performed By: #### 5 8410-2 ####[facility] LABORATORYCLIA [id number] [address] MCHC (RBC) [Mass/Vol] 33.2 g/dL Normal 30.5-36.0 [facility] Comment on above: Order Comment: Speci men Type: BLOOD SPECIMENOrdering Facility: [facility] Address: [address] [place] [address] Performed By: #### 5 8410-2 ####[facility] LABORATORYCLIA [id number] [address] [place] MCV (RBC) [Entitic vol] 91.3 fL Normal 80.0-100.0 [facility] Comment on above: Order Comment: Speci men Type: BLOOD SPECIMENOrdering Facility: [facility] Address: [address] [place] [address] Performed By: #### 5 8410-2 ####[facility] LABORATORYCLIA [id number] [address] Nucleated RBC (Bld) [#/Vol] 10*3/uL Normal <0.01 [facility] Comment on above: Order Comment: Speci men Type: BLOOD SPECIMENOrdering Facility: [facility] Address: [address] [place] [address] Performed By: #### 5 8410-2 ####[facility] LABORATORYCLIA [id number] [address] Platelet mean volume (Bld) [Entitic vol] 8.7 fL Low 9.0-12.7 [facility] Comment on above: Order Comment: Speci men Type: BLOOD SPECIMENOrdering Facility: [facility] Address: [address] [place] [address] Performed By: #### 5 8410-2 ####[facility] LABORATORYCLIA [id number] [place] [address] [place] Platelets (Bld) [#/Vol] 198 10*3/uL Normal 150-400 [facility] Comment on above: Order Comment: Speci men Type: BLOOD SPECIMENOrdering Facility: [facility] Address: [address] [place] [address] Performed By: #### 5 8410-2 ####[facility] LABORATORYCLIA [id number] [place] [address] [place] RBC (Bld) [#/Vol] 3.92 10*6/uL Low 4.20-6.00 [facility] Comment on above: Order Comment: Speci men Type: BLOOD SPECIMENOrdering Facility: [facility] Address: [address] [place] [address] Performed By: #### 5 8410-2 ####[facility] LABORATORYCLIA [id number] [place] [address] [place] WBC (Bld) [#/Vol] 7.39 10*3/uL Normal 3.70-11.00 [facility] Comment on above: Order Comment: Speci men Type: BLOOD SPECIMENOrdering Facility: [facility] Address: [address] [place] [address] Performed By: #### 5 8410-2 ####[facility] LABORATORYCLIA [id number] [place] [id number] [facility] CONSULT PROGon 08-27-2024 CONSULT PROG Normal [facility] aPTT PPPon 08-27-2024 aPTT Coag (PPP) [Time] 44.7 s High 23.0-32.4 [facility] Comment on above: Order Comment: Speci men Type: BLOOD SPECIMENOrdering Facility: [facility] Address: [address] [place] [address] Performed By: #### 1 4979-9 ####[facility] LABORATORYCLIA [id number] [address] [place] aPTT Coag (PPP) [Time] 67.2 s High 23.0-32.4 [facility] Comment on above: Order Comment: Speci men Type: BLOOD SPECIMENOrdering Facility: [facility] Address: [address] [place] [address] Performed By: #### 1 4979-9 ####[facility] LABORATORYCLIA [id number] [address] aPTT Coag (PPP) [Time] 81.8 s High 23.0-32.4 [facility] Comment on above: Order Comment: Speci men Type: BLOOD SPECIMENOrdering Facility: [facility] Address: [address] [place] [address] Performed By: #### 1 4979-9 ####[facility] LABORATORYCLIA [id number] [address] aPTT Coag (PPP) [Time] 60.0 s High 23.0-32.4 [facility] Comment on above: Order Comment: Speci men Type: BLOOD SPECIMENOrdering Facility: [facility] Address: [address] [place] [address] Performed By: #### 1 4979-9 ####[facility] LABORATORYCLIA [id number] [address] CASE MANAGEMon 08-26-2024 CASE MANAGEM Normal [facility] CBC panel Auto (Bld)on 08-26 Erythrocyte distribution width (RBC) [Ratio] 14.2 % Normal 11.5-15.0 [facility] Comment on above: Order Comment: Speci men Type: BLOOD SPECIMENOrdering Facility: [facility] Address: [address] [place] [address] Performed By: #### 5 8410-2 ####[facility] LABORATORYCLIA [id number] [address] Hematocrit (Bld) [Volume fraction] 36.9 % Low 39.0-51.0 [facility] Comment on above: Order Comment: Speci men Type: BLOOD SPECIMENOrdering Facility: [facility] Address: [address] [place] [address] Performed By: #### 5 8410-2 ####[facility] LABORATORYCLIA [id number] [address] OF [facility] Hemoglobin (Bld) [Mass/Vol] 12.7 g/dL Low 13.0-17.0 [facility] Comment on above: Order Comment: Speci men Type: BLOOD SPECIMENOrdering Facility: [facility] Address: [address] [place] [address] Performed By: #### 5 8410-2 ####[facility] LABORATORYCLIA [id number] [address] OF [facility] MCH (RBC) [Entitic mass] 30.5 pg Normal 26.0-34.0 [facility] Comment on above: Order Comment: Speci men Type: BLOOD SPECIMENOrdering Facility: [facility] Address: [address] [place] [address] Performed By: #### 5 8410-2 ####[facility] LABORATORYCLIA [id number] [address] MCHC (RBC) [Mass/Vol] 34.4 g/dL Normal 30.5-36.0 [facility] Comment on above: Order Comment: Speci men Type: BLOOD SPECIMENOrdering Facility: [facility] Address: [address] [place] [address] Performed By: #### 5 8410-2 ####[facility] LABORATORYCLIA [id number] [address] [place] MCV (RBC) [Entitic vol] 88.7 fL Normal 80.0-100.0 [facility] Comment on above: Order Comment: Speci men Type: BLOOD SPECIMENOrdering Facility: [facility] Address: [address] [place] [address] Performed By: #### 5 8410-2 ####[facility] LABORATORYCLIA [id number] [address] OF [facility] Nucleated RBC (Bld) [#/Vol] 10*3/uL Normal <0.01 [facility] Comment on above: Order Comment: Speci men Type: BLOOD SPECIMENOrdering Facility: [facility] Address: [address] [place] [address] Performed By: #### 5 8410-2 ####[facility] LABORATORYCLIA [id number] [place] [address] [place] Platelet mean volume (Bld) [Entitic vol] 8.7 fL Low 9.0-12.7 [facility] Comment on above: Order Comment: Speci men Type: BLOOD SPECIMENOrdering Facility: [facility] Address: [address] [place] [address] Performed By: #### 5 8410-2 ####[facility] LABORATORYCLIA [id number] [address] [place] Platelets (Bld) [#/Vol] 226 10*3/uL Normal 150-400 [facility] Comment on above: Order Comment: Speci men Type: BLOOD SPECIMENOrdering Facility: [facility] Address: [address] [place] [address] Performed By: #### 5 8410-2 ####[facility] LABORATORYCLIA [id number] [place] [address] [place] RBC (Bld) [#/Vol] 4.16 10*6/uL Low 4.20-6.00 [facility] Comment on above: Order Comment: Speci men Type: BLOOD SPECIMENOrdering Facility: [facility] Address: [address] [place] [address] Performed By: #### 5 8410-2 ####[facility] LABORATORYCLIA [id number] [place] [address] [place] WBC (Bld) [#/Vol] 7.84 10*3/uL Normal 3.70-11.00 [facility] Comment on above: Order Comment: Speci men Type: BLOOD SPECIMENOrdering Facility: [facility] Address: [address] [place] [address] Performed By: #### 5 8410-2 ####[facility] LABORATORYCLIA [id number] [address] STATES OF [facility] CONSULT PROGon 08-26-2024 CONSULT PROG Normal [facility] CONSULT PROG Normal [facility] NUTRITIONon 08-26-2024 NUTRITION Normal [facility] aPTT PPPon 08-26-2024 aPTT Coag (PPP) [Time] 46.1 s High 23.0-32.4 [facility] Comment on above: Order Comment: Speci men Type: BLOOD SPECIMENOrdering Facility: [facility] Address: [address] [place] [address] Performed By: #### 1 4979-9 ####[facility] LABORATORYCLIA [id number] [address] aPTT Coag (PPP) [Time] 56.2 s High 23.0-32.4 [facility] Comment on above: Order Comment: Speci men Type: BLOOD SPECIMENOrdering Facility: [facility] Address: [address] [place] [address] Performed By: #### 1 4979-9 ####[facility] LABORATORYCLIA [id number] [address] aPTT Coag (PPP) [Time] 70.2 s High 23.0-32.4 [facility] Comment on above: Order Comment: Speci men Type: BLOOD SPECIMENOrdering Facility: [facility] Address: [address] [place] [address] Performed By: #### 1 4979-9 ####[facility] LABORATORYCLIA [id number] [address] OF [facility] Basic metabolic 2000 panelon 08-25-2024 Anion gap [Moles/Vol] 9 mmol/L Normal 8-15 [facility] Comment on above: Order Comment: Speci men Type: BLOOD SPECIMENOrdering Facility: [facility] Address: [address] [place] [address] Performed By: #### 2 4321-2 ####[facility] LABORATORYCLIA [id number] [place] [address] [place] Calcium [Mass/Vol] 8.9 mg/dL Normal 8.5-10.2 [facility] Comment on above: Order Comment: Speci men Type: BLOOD SPECIMENOrdering Facility: [facility] Address: [address] [place] [address] Performed By: #### 2 4321-2 ####[facility] LABORATORYCLIA [id number] [place] [address] [place] Chloride [Moles/Vol] 101 mmol/L Normal 98-107 [facility] Comment on above: Order Comment: Speci men Type: BLOOD SPECIMENOrdering Facility: [facility] Address: [address] [place] [address] Performed By: #### 2 4321-2 ####[facility] LABORATORYCLIA [id number] [address] [place] CO2 [Moles/Vol] 23 mmol/L Normal 22-30 [facility] Comment on above: Order Comment: Speci men Type: BLOOD SPECIMENOrdering Facility: [facility] Address: [address] [place] [address] Performed By: #### 2 4321-2 ####[facility] LABORATORYCLIA [id number] [address] [place] Creatinine [Mass/Vol] 1.10 mg/dL Normal 0.73-1.22 [facility] Comment on above: Order Comment: Speci men Type: BLOOD SPECIMENOrdering Facility: [facility] Address: [address] [place] [address] Performed By: #### 2 4321-2 ####[facility] LABORATORYCLIA [id number] [address] [place] Creatinine and Glomerular filtration rate.predicted panel (S/P/Bld) 73 mL/min/1.73m??? Normal >=60 [facility] Comment on above: Order Comment: Speci men Type: BLOOD SPECIMENOrdering Facility: [facility] Address: [address] [place] [address] Result Comment: Apple mated Glomerular Filtration Rate (eGFR) is calculated using the 2020 CKD-EPI creatinine equation. This equation utilizes serum creatinine, sex, and age as parameters. The creatinine assay has traceable calibration to isotope dilution-mass spectrometry. Refer to KDIGO guidelines for clinical interpretation. In patients with unstable renal function, e.g. those with acute kidney injury, the eGFR may not accurately reflect actual GFR. Performed By: #### 2 4321-2 ####[facility] LABORATORYCLIA [id number] [place] [address] [place] Glucose [Mass/Vol] 120 mg/dL High 74-99 [facility] Comment on above: Order Comment: Yojana riggins Type: BLOOD SPECIMENOrdering Facility: [facility] Address: [address] [place] [address] Result Comment: The [place] Diabetes Association (ADA) provides guidance for cutoff values for fasting glucose and random glucose. The ADA defines fasting as no caloric intake for at least 8 hours. Fasting plasma glucose results between 100 to 125 mg/dL indicate increased risk for diabetes (prediabetes).Fasting plasma glucose results greater than or equal to 126 mg/dL meet the criteria for diagnosis of diabetes. In the absence of unequivocal hyperglycemia, results should be confirmed by repeat testing. In a patient with classic symptoms of hyperglycemia or hyperglycemic crisis, random plasma glucose results greater than or equal to 200 mg/dL meet the criteria for diagnosis of diabetes.Reference: Standards of Medical Care in Diabetes 2016, [place] [employer]. Diabetes Care. 2016.39(Suppl 1). Performed By: #### 2 4321-2 ####[facility] LABORATORYCLIA [id number] [place] [address] [place] Potassium [Moles/Vol] 3.8 mmol/L Normal 3.7-5.1 [facility] Comment on above: Order Comment: Yojana riggins Type: BLOOD SPECIMENOrdering Facility: [facility] Address: [address] [place] [address] Performed By: #### 2 4321-2 ####[facility] LABORATORYCLIA [id number] [place] [id number] [place] Sodium [Moles/Vol] 133 mmol/L Low 136-144 [facility] Comment on above: Order Comment: Speci men Type: BLOOD SPECIMENOrdering Facility: [facility] Address: [address] [place] [address] Performed By: #### 2 4321-2 ####[facility] LABORATORYCLIA [id number] [address] [place] Urea nitrogen [Mass/Vol] 24 mg/dL Normal 9-24 [facility] Comment on above: Order Comment: Speci men Type: BLOOD SPECIMENOrdering Facility: [facility] Address: [address] [place] [address] Performed By: #### 2 4321-2 ####[facility] LABORATORYCLIA [id number] [address] STATES OF [facility] CBC panel Auto (Bld)on 08-25 Erythrocyte distribution width (RBC) [Ratio] 13.9 % Normal 11.5-15.0 [facility] Comment on above: Order Comment: Speci men Type: BLOOD SPECIMENOrdering Facility: [facility] Address: [address] [place] [address] Performed By: #### 5 8410-2 ####[facility] LABORATORYCLIA [id number] [address] [place] Hematocrit (Bld) [Volume fraction] 35.0 % Low 39.0-51.0 [facility] Comment on above: Order Comment: Speci men Type: BLOOD SPECIMENOrdering Facility: [facility] Address: [address] [place] [address] Performed By: #### 5 8410-2 ####[facility] LABORATORYCLIA [id number] [address] [place] Hemoglobin (Bld) [Mass/Vol] 11.9 g/dL Low 13.0-17.0 [facility] Comment on above: Order Comment: Speci men Type: BLOOD SPECIMENOrdering Facility: [facility] Address: [address] [place] [address] Performed By: #### 5 8410-2 ####[facility] LABORATORYCLIA [id number] [address] MCH (RBC) [Entitic mass] 30.5 pg Normal 26.0-34.0 [facility] Comment on above: Order Comment: Speci men Type: BLOOD SPECIMENOrdering Facility: [facility] Address: [address] [place] [address] Performed By: #### 5 8410-2 ####[facility] LABORATORYCLIA [id number] [address] STATES OF [facility] MCHC (RBC) [Mass/Vol] 34.0 g/dL Normal 30.5-36.0 [facility] Comment on above: Order Comment: Speci men Type: BLOOD SPECIMENOrdering Facility: [facility] Address: [address] [place] [address] Performed By: #### 5 8410-2 ####[facility] LABORATORYCLIA [id number] [address] MCV (RBC) [Entitic vol] 89.7 fL Normal 80.0-100.0 [facility] Comment on above: Order Comment: Speci men Type: BLOOD SPECIMENOrdering Facility: [facility] Address: [address] [place] [address] Performed By: #### 5 8410-2 ####[facility] LABORATORYCLIA [id number] [address] Nucleated RBC (Bld) [#/Vol] 10*3/uL Normal <0.01 [facility] Comment on above: Order Comment: Speci men Type: BLOOD SPECIMENOrdering Facility: [facility] Address: [address] [place] [address] Performed By: #### 5 8410-2 ####[facility] LABORATORYCLIA [id number] [address] Platelet mean volume (Bld) [Entitic vol] 8.7 fL Low 9.0-12.7 [facility] Comment on above: Order Comment: Speci men Type: BLOOD SPECIMENOrdering Facility: [facility] Address: [address] [place] [address] Performed By: #### 5 8410-2 ####[facility] LABORATORYCLIA [id number] [address] [place] Platelets (Bld) [#/Vol] 205 10*3/uL Normal 150-400 [facility] Comment on above: Order Comment: Speci men Type: BLOOD SPECIMENOrdering Facility: [facility] Address: [address] [place] [address] Performed By: #### 5 8410-2 ####[facility] LABORATORYCLIA [id number] [place] [address] [place] RBC (Bld) [#/Vol] 3.90 10*6/uL Low 4.20-6.00 [facility] Comment on above: Order Comment: Speci men Type: BLOOD SPECIMENOrdering Facility: [facility] Address: [address] [place] [address] Performed By: #### 5 8410-2 ####[facility] LABORATORYCLIA [id number] [address] OF [facility] WBC (Bld) [#/Vol] 7.45 10*3/uL Normal 3.70-11.00 [facility] Comment on above: Order Comment: Speci men Type: BLOOD SPECIMENOrdering Facility: [facility] Address: [address] [place] [address] Performed By: #### 5 8410-2 ####[facility] LABORATORYCLIA [id number] [address] [place] CONSULT PROGon 08-25-2024 CONSULT PROG Normal [facility] CONSULT PROG Normal [facility] TYPE + SCREENon 08-25-2024 ABO O Normal [facility] Comment on above: Order Comment: Speci men Type: BLOOD SPECIMENOrdering Facility: [facility] Address: [address] [place] [address] Performed By: #### T SCR ####[facility] BLOOD BANKCLIA [id number] [address] Rh Nom (Bld) Positive Normal [facility] Comment on above: Order Comment: Speci men Type: BLOOD SPECIMENOrdering Facility: [facility] Address: [address] [place] [address] Performed By: #### T SCR ####[facility] BLOOD BANKCLIA [id number] [address] TYPE AND SCREEN EXPIRATION 08/28/2024 23:59 Normal [facility] Comment on above: Order Comment: Speci men Type: BLOOD SPECIMENOrdering Facility: [facility] Address: [address] [place] [address] Performed By: #### T SCR ####[facility] BLOOD BANKCLIA [id number] [address] aPTT PPPon 08-25-2024 aPTT Coag (PPP) [Time] 50.8 s High 23.0-32.4 [facility] Comment on above: Order Comment: Speci men Type: BLOOD SPECIMENOrdering Facility: [facility] Address: [address] [place] [address] Performed By: #### 1 4979-9 ####[facility] LABORATORYCLIA [id number] [address] aPTT Coag (PPP) [Time] 53.7 s High 23.0-32.4 [facility] Comment on above: Order Comment: Speci men Type: BLOOD SPECIMENOrdering Facility: [facility] Address: [address] [place] [address] Performed By: #### 1 4979-9 ####[facility] LABORATORYCLIA [id number] [address] aPTT Coag (PPP) [Time] 73.9 s High 23.0-32.4 [facility] Comment on above: Order Comment: Speci men Type: BLOOD SPECIMENOrdering Facility: [facility] Address: [address] [place] [address] Performed By: #### 1 4979 ####[facility]UNSTERCLIA [id number] [place] [address] [place] Basic metabolic 2000 panelon 08-24-2024 Anion gap [Moles/Vol] 14 mmol/L Normal 8-15 [facility] Comment on above: Order Comment: Speci men Type: BLOOD SPECIMENOrdering Facility: [facility] Address: [address] [place] [address] Performed By: #### 2 4321-2, , 2776-04 ####[facility] LABORATORYCLIA [id number] [place] [address] [place] Calcium [Mass/Vol] 9.3 mg/dL Normal 8.5-10.2 [facility] Comment on above: Order Comment: Speci men Type: BLOOD SPECIMENOrdering Facility: [facility] Address: [address] [place] [address] Performed By: #### 2 432-2, , 2776-04 ####[facility] LABORATORYCLIA [id number] [place] [address] [place] Chloride [Moles/Vol] 98 mmol/L Normal 98-107 [facility] Comment on above: Order Comment: Speci men Type: BLOOD SPECIMENOrdering Facility: [facility] Address: [address] [place] [address] Performed By: #### 2 4321-2, , 2776-04 ####[facility] LABORATORYCLIA [id number] [place] [address] [place] CO2 [Moles/Vol] 21 mmol/L Low 22-30 [facility] Comment on above: Order Comment: Speci men Type: BLOOD SPECIMENOrdering Facility: [facility] Address: [address] [place] [address] Performed By: #### 2 4321-2, , 2776-04 ####[facility] LABORATORYCLIA [id number] [place] [address] [place] Creatinine [Mass/Vol] 1.19 mg/dL Normal 0.73-1.22 [facility] Comment on above: Order Comment: Yojana riggins Type: BLOOD SPECIMENOrdering Facility: [facility] Address: [address] [place] [address] Performed By: #### 2 4321-2, , 2776-04 ####[facility] LABORATORYCLIA [id number] [place] [id number] [facility] [place] Creatinine and Glomerular filtration rate.predicted panel (S/P/Bld) 66 mL/min/1.73m??? Normal >=60 [facility] Comment on above: Order Comment: Yojana riggins Type: BLOOD SPECIMENOrdering Facility: [facility] Address: [address] [place] [address] Result Comment: Apple mated Glomerular Filtration Rate (eGFR) is calculated using the 2020 CKD-EPI creatinine equation. This equation utilizes serum creatinine, sex, and age as parameters. The creatinine assay has traceable calibration to isotope dilution-mass spectrometry. Refer to KDIGO guidelines for clinical interpretation. In patients with unstable renal function, e.g. those with acute kidney injury, the eGFR may not accurately reflect actual GFR. Performed By: #### 2 4321-2, , 2776-04 ####[facility] LABORATORYCLIA [id number] [place] [id number] [place] Glucose [Mass/Vol] 107 mg/dL High 74-99 [facility] Comment on above: Order Comment: Yojana riggins Type: BLOOD SPECIMENOrdering Facility: [facility] Address: [address] [place] [address] Result Comment: The [place] Diabetes [employer] (ADA) provides guidance for cutoff values for fasting glucose and random glucose. The ADA defines fasting as no caloric intake for at least 8 hours. Fasting plasma glucose results between 100 to 125 mg/dL indicate increased risk for diabetes (prediabetes).Fasting plasma glucose results greater than or equal to 126 mg/dL meet the criteria for diagnosis of diabetes. In the absence of unequivocal hyperglycemia, results should be confirmed by repeat testing. In a patient with classic symptoms of hyperglycemia or hyperglycemic crisis, random plasma glucose results greater than or equal to 200 mg/dL meet the criteria for diagnosis of diabetes.Reference: Standards of Medical Care in Diabetes 2016, [place] [employer]. Diabetes Care. 2016.39(Suppl 1). Performed By: #### 2 4321-2, , 2776-04 ####[facility] LABORATORYCLIA [id number] [place] [address] [place] Potassium [Moles/Vol] 4.2 mmol/L Normal 3.7-5.1 [facility] Comment on above: Order Comment: Speci men Type: BLOOD SPECIMENOrdering Facility: [facility] Address: [address] [place] [address] Performed By: #### 2 4321-2, , 2776-04 ####[facility] LABORATORYCLIA [id number] [address] [place] Sodium [Moles/Vol] 133 mmol/L Low 136-144 [facility] Comment on above: Order Comment: Speci men Type: BLOOD SPECIMENOrdering Facility: [facility] Address: [address] [place] [address] Performed By: #### 2 4321-2, , 2776-04 ####[facility] LABORATORYCLIA [id number] [address] [place] Urea nitrogen [Mass/Vol] 27 mg/dL High 9-24 [facility] Comment on above: Order Comment: Speci men Type: BLOOD SPECIMENOrdering Facility: [facility] Address: [address] [place] [address] Performed By: #### 2 4321-2, , 2776-04 ####[facility] LABORATORYCLIA [id number] [place] [address] [place] CBC W Auto Differential pane l (Bld)on 08-24-2024 Basophils (Bld) [#/Vol] 0.03 10*3/uL Normal <0.11 [facility] Comment on above: Order Comment: Speci men Type: BLOOD SPECIMENOrdering Facility: [facility] Address: [address] [place] [address] Performed By: #### 5 7021-8 ####[facility] LABORATORYCLIA [id number] [address] STATES [facility] Basophils/100 WBC (Bld) 0.3 % Normal A [facility] Comment on above: Order Comment: Speci men Type: BLOOD SPECIMENOrdering Facility: [facility] Address: [address] [place] [address] Performed By: #### 5 7021-8 ####[facility] LABORATORYCLIA [id number] [address] OF [facility] Differential cell count method Nom (Bld) Auto Normal [facility] Comment on above: Order Comment: Speci men Type: BLOOD SPECIMENOrdering Facility: [facility] Address: [address] [place] [address] Performed By: #### 5 7021-8 ####[facility] LABORATORYCLIA [id number] [address] [place] Eosinophils (Bld) [#/Vol] 0.18 10*3/uL Normal <0.46 [facility] Comment on above: Order Comment: Speci men Type: BLOOD SPECIMENOrdering Facility: [facility] Address: [address] [place] [address] Performed By: #### 5 7021-8 ####[facility] LABORATORYCLIA [id number] [address] Eosinophils/100 WBC (Bld) 1.9 % Normal [facility] Comment on above: Order Comment: Speci men Type: BLOOD SPECIMENOrdering Facility: [facility] Address: [address] [place] [address] Performed By: #### 5 7021-8 ####[facility] LABORATORYCLIA [id number] [address] Erythrocyte distribution width (RBC) [Ratio] 14.0 % Normal 11.5-15.0 [facility] Comment on above: Order Comment: Speci men Type: BLOOD SPECIMENOrdering Facility: [facility] Address: [address] [place] [address] Performed By: #### 5 7021-8 ####[facility] LABORATORYCLIA [id number] [address] [place] Hematocrit (Bld) [Volume fraction] 37.7 % Low 39.0-51.0 [facility] Comment on above: Order Comment: Speci men Type: BLOOD SPECIMENOrdering Facility: [facility] Address: [address] [place] [address] Performed By: #### 5 7021-8 ####[facility] LABORATORYCLIA [id number] [address] [place] Hemoglobin (Bld) [Mass/Vol] 12.7 g/dL Low 13.0-17.0 [facility] Comment on above: Order Comment: Speci men Type: BLOOD SPECIMENOrdering Facility: [facility] Address: [address] [place] [address] Performed By: #### 5 7021-8 ####[facility] LABORATORYCLIA [id number] [address] [place] Immature granulocytes (Bld) [#/Vol] 0.04 10*3/uL Normal <0.10 [facility] Comment on above: Order Comment: Speci men Type: BLOOD SPECIMENOrdering Facility: [facility] Address: [address] [place] [address] Performed By: #### 5 7021-8 ####[facility] LABORATORYCLIA [id number] [address] [place] Immature granulocytes/100 WBC (Bld) 0.4 % Normal [facility] Comment on above: Order Comment: Speci men Type: BLOOD SPECIMENOrdering Facility: [facility] Address: [address] [place] [address] Performed By: #### 5 7021-8 ####[facility] LABORATORYCLIA [id number] [place] [address] [place] Lymphocytes (Bld) [#/Vol] 1.23 10*3/uL Normal 1.00-4.00 [facility] Comment on above: Order Comment: Speci men Type: BLOOD SPECIMENOrdering Facility: [facility] Address: [address] [place] [address] Performed By: #### 5 7021-8 ####[facility] LABORATORYCLIA [id number] [address] STATES [facility] Lymphocytes/100 WBC (Bld) 12.9 % Normal [facility] Comment on above: Order Comment: Speci men Type: BLOOD SPECIMENOrdering Facility: [facility] Address: [address] [place] [address] Performed By: #### 5 7021-8 ####[facility] LABORATORYCLIA [id number] [address] STATES OF [facility] MCH (RBC) [Entitic mass] 30.3 pg Normal 26.0-34.0 [facility] Comment on above: Order Comment: Speci men Type: BLOOD SPECIMENOrdering Facility: [facility] Address: [address] [place] [address] Performed By: #### 5 7021-8 ####[facility] LABORATORYCLIA [id number] [address] MCHC (RBC) [Mass/Vol] 33.7 g/dL Normal 30.5-36.0 [facility] Comment on above: Order Comment: Speci men Type: BLOOD SPECIMENOrdering Facility: [facility] Address: [address] [place] [address] Performed By: #### 5 7021-8 ####[facility] LABORATORYCLIA [id number] [address] [place] MCV (RBC) [Entitic vol] 90.0 fL Normal 80.0-100.0 [facility] Comment on above: Order Comment: Speci men Type: BLOOD SPECIMENOrdering Facility: [facility] Address: [address] [place] [address] Performed By: #### 5 7021-8 ####[facility] LABORATORYCLIA [id number] [place] [address] [place] Monocytes (Bld) [#/Vol] 0.83 10*3/uL Normal <0.87 [facility] Comment on above: Order Comment: Speci men Type: BLOOD SPECIMENOrdering Facility: [facility] Address: [address] [place] [address] Performed By: #### 5 7021-8 ####[facility] LABORATORYCLIA [id number] [address] [place] Monocytes/100 WBC (Bld) 8.7 % Normal [facility] Comment on above: Order Comment: Speci men Type: BLOOD SPECIMENOrdering Facility: [facility] Address: [address] [place] [address] Performed By: #### 5 7021-8 ####[facility] [facility] LABORATORYCLIA [id number] [address] [place] Neutrophils (Bld) [#/Vol] 7.26 10*3/uL Normal 1.45-7.50 [facility] Comment on above: Order Comment: Speci men Type: BLOOD SPECIMENOrdering Facility: [facility] Address: [address] [place] [address] Performed By: #### 5 7021-8 ####[facility] LABORATORYCLIA [id number] [address] [place] Neutrophils/100 WBC (Bld) 75.8 % Normal [facility] Comment on above: Order Comment: Speci men Type: BLOOD SPECIMENOrdering Facility: [facility] Address: [address] [place] [address] Performed By: #### 5 7021-8 ####[facility] [facility] LABORATORYCLIA [id number] [place] [address] [place] Nucleated RBC (Bld) [#/Vol] 10*3/uL Normal <0.01 [facility] Comment on above: Order Comment: Speci men Type: BLOOD SPECIMENOrdering Facility: [facility] Address: [address] [place] [address] Performed By: #### 5 7021-8 ####[facility] [facility] LABORATORYCLIA [id number] [address] [place] Nucleated RBC/100 WBC (Bld) [Ratio] 0.0 /100 WBC Normal [facility] Comment on above: Order Comment: Speci men Type: BLOOD SPECIMENOrdering Facility: [facility] Address: [address] [place] [address] Performed By: #### 5 7021-8 ####[facility] LABORATORYCLIA [id number] [place] [address] [place] Platelet mean volume (Bld) [Entitic vol] 8.8 fL Low 9.0-12.7 [facility] Comment on above: Order Comment: Speci men Type: BLOOD SPECIMENOrdering Facility: [facility] Address: [address] [place] [address] Performed By: #### 5 7021-8 ####[facility] LABORATORYCLIA [id number] [address] [place] Platelets (Bld) [#/Vol] 252 10*3/uL Normal 150-400 [facility] Comment on above: Order Comment: Speci men Type: BLOOD SPECIMENOrdering Facility: [facility] Address: [address] [place] [address] Performed By: #### 5 7021-8 ####[facility] LABORATORYCLIA [id number] [address] [place] RBC (Bld) [#/Vol] 4.19 10*6/uL Low 4.20-6.00 [facility] Comment on above: Order Comment: Speci men Type: BLOOD SPECIMENOrdering Facility: [facility] Address: [address] [place] [address] Performed By: #### 5 7021-8 ####[facility] LABORATORYCLIA [id number] [address] [place] WBC (Bld) [#/Vol] 9.57 10*3/uL Normal 3.70-11.00 [facility] Comment on above: Order Comment: Speci men Type: BLOOD SPECIMENOrdering Facility: [facility] Address: [address] [place] [address] Performed By: #### 5 7021-8 ####[facility] LABORATORYCLIA [id number] [address] [place] CONSULTon 08-24-2024 CONSULT Normal [facility] CONSULT PROGon 08-24-2024 CONSULT PROG Normal [facility] CONSULT PROG Normal [facility] Magnesium SerPl-mCncon 08-24 Magnesium [Mass/Vol] 2.0 mg/dL Normal 1.7-2.3 [facility] Comment on above: Order Comment: Speci men Type: BLOOD SPECIMENOrdering Facility: [facility] [facility] Address: [address] [place] [address] Performed By: #### 2 4321-2, 76114-0, 2777-1 ####[facility] LABORATORYCLIA [id number] [address] [place] Phosphate SerPl-mCncon 08-24 Phosphate [Mass/Vol] 3.8 mg/dL Normal 2.7-4.8 [facility] Comment on above: Order Comment: Speci men Type: BLOOD SPECIMENOrdering Facility: [facility] Address: [address] [place] [address] Performed By: #### 2 4321-2, 24480-9, 2777-1 ####[facility] LABORATORYCLIA [id number] [address] [place] XR ABDOMEN 1V SUPINEon 08-24 XR ABDOMEN 1V SUPINE Normal [facility] XR CHEST 2V FRONTAL/LATon XR CHEST 2V FRONTAL/LAT Normal [facility] aPTT PPPon 08-24-2024 aPTT Coag (PPP) [Time] 57.4 s High 23.0-32.4 [facility] Comment on above: Order Comment: Speci men Type: BLOOD SPECIMENOrdering Facility: [facility] Address: [address] [place] [address] Performed By: #### 1 4979-9 ####[facility] LABORATORYCLIA [id number] [address] [place] [facility] aPTT Coag (PPP) [Time] 67.5 s High 23.0-32.4 [facility] Comment on above: Order Comment: Speci men Type: BLOOD SPECIMENOrdering Facility: [facility] Address: [address] [place] [address] Performed By: #### 1 4979-9 ####[facility] LABORATORYCLIA [id number] [address] [place] [facility] aPTT Coag (PPP) [Time] s High 23.0-32.4 [facility] Comment on above: Order Comment: Speci men Type: BLOOD SPECIMENOrdering Facility: [facility] Address: [address] [place] [address] Performed By: #### 1 4979-9 ####[facility] LABORATORYCLIA [id number] [address] [place] [facility] aPTT Coag (PPP) [Time] 64.9 s High 23.0-32.4 [facility] Comment on above: Order Comment: Speci men Type: BLOOD SPECIMENOrdering Facility: [facility] Address: [address] [place] [address] Performed By: #### 1 4979-9 ####[facility] LABORATORYCLIA [id number] [address] OF [facility] Basic metabolic 2000 panelon 08-23-2024 Anion gap [Moles/Vol] 12 mmol/L Normal 8-15 [facility] Comment on above: Order Comment: Speci men Type: BLOOD SPECIMENOrdering Facility: [facility] Address: [address] [place] [address] Performed By: #### 2 4321-2 ####[facility] LABORATORYCLIA [id number] [address] STATES OF [facility] Calcium [Mass/Vol] 9.1 mg/dL Normal 8.5-10.2 [facility] Comment on above: Order Comment: Speci men Type: BLOOD SPECIMENOrdering Facility: [facility] Address: [address] [place] [address] Performed By: #### 2 4321-2 ####[facility] LABORATORYCLIA [id number] [place] [address] [place] Chloride [Moles/Vol] 97 mmol/L Low 98-107 [facility] Comment on above: Order Comment: Speci men Type: BLOOD SPECIMENOrdering Facility: [facility] Address: [address] [place] [address] Performed By: #### 2 4321-2 ####[facility] LABORATORYCLIA [id number] [address] [place] CO2 [Moles/Vol] 21 mmol/L Low 22-30 [facility] Comment on above: Order Comment: Speci men Type: BLOOD SPECIMENOrdering Facility: [facility] Address: [address] [place] [address] Performed By: #### 2 4321-2 ####[facility] LABORATORYCLIA [id number] [address] [place] Creatinine [Mass/Vol] 1.12 mg/dL Normal 0.73-1.22 [facility] Comment on above: Order Comment: Speci men Type: BLOOD SPECIMENOrdering Facility: [facility] Address: [address] [place] [address] Performed By: #### 2 4321-2 ####[facility] LABORATORYCLIA [id number] [address] Creatinine and Glomerular filtration rate.predicted panel (S/P/Bld) 71 mL/min/1.73m??? Normal >=60 [facility] Comment on above: Order Comment: Speci men Type: BLOOD SPECIMENOrdering Facility: [facility] Address: [address] [place] [address] Result Comment: Apple mated Glomerular Filtration Rate (eGFR) is calculated using the 2020 CKD-EPI creatinine equation. This equation utilizes serum creatinine, sex, and age as parameters. The creatinine assay has traceable calibration to isotope dilution-mass spectrometry. Refer to KDIGO guidelines for clinical interpretation. In patients with unstable renal function, e.g. those with acute kidney injury, the eGFR may not accurately reflect actual GFR. Performed By: #### 2 4321-2 ####[facility] LABORATORYCLIA [id number] [place] [address] [place] Glucose [Mass/Vol] 147 mg/dL High 74-99 [facility] Comment on above: Order Comment: Yojana riggins Type: BLOOD SPECIMENOrdering Facility: [facility] Address: [address] [place] [address] Result Comment: The [place] Diabetes [employer] (ADA) provides guidance for cutoff values for fasting glucose and random glucose. The ADA defines fasting as no caloric intake for at least 8 hours. Fasting plasma glucose results between 100 to 125 mg/dL indicate increased risk for diabetes (prediabetes).Fasting plasma glucose results greater than or equal to 126 mg/dL meet the criteria for diagnosis of diabetes. In the absence of unequivocal hyperglycemia, results should be confirmed by repeat testing. In a patient with classic symptoms of hyperglycemia or hyperglycemic crisis, random plasma glucose results greater than or equal to 200 mg/dL meet the criteria for diagnosis of diabetes.Reference: Standards of Medical Care in Diabetes 2016, [place] [employer]. Diabetes Care. 2016.39(Suppl 1). Performed By: #### 2 4321-2 ####[facility] LABORATORYCLIA [id number] [place] [address] [place] Potassium [Moles/Vol] 4.6 mmol/L Normal 3.7-5.1 [facility] Comment on above: Order Comment: Yojana riggins Type: BLOOD SPECIMENOrdering Facility: [facility] Address: [address] [place] [address] Performed By: #### 2 4321-2 ####[facility] LABORATORYCLIA [id number] [place] [address] [place] Sodium [Moles/Vol] 130 mmol/L Low 136-144 [facility] Comment on above: Order Comment: Yojana riggins Type: BLOOD SPECIMENOrdering Facility: [facility] Address: [address] [place] [address] Performed By: #### 2 4321-2 ####[facility] LABORATORYCLIA [id number] [address] [place] [facility] Urea nitrogen [Mass/Vol] 24 mg/dL Normal 9-24 [facility] Comment on above: Order Comment: Speci men Type: BLOOD SPECIMENOrdering Facility: [facility] Address: [address] [place] [address] Performed By: #### 2 4321-2 ####[facility] LABORATORYCLIA [id number] [address] CASE MANAGEMon 08-23-2024 CASE MANAGEM Normal [facility] CBC panel Auto (Bld)on 08-23 Erythrocyte distribution width (RBC) [Ratio] 13.6 % Normal 11.5-15.0 [facility] Comment on above: Order Comment: Speci men Type: BLOOD SPECIMENOrdering Facility: [facility] Address: [address] [place] [address] Performed By: #### 5 8410-2 ####[facility] LABORATORYCLIA [id number] [address] [place] [facility] Hematocrit (Bld) [Volume fraction] 39.3 % Normal 39.0-51.0 [facility] Comment on above: Order Comment: Speci men Type: BLOOD SPECIMENOrdering Facility: [facility] Address: [address] [place] [address] Performed By: #### 5 8410-2 ####[facility] LABORATORYCLIA [id number] [address] Hemoglobin (Bld) [Mass/Vol] 13.2 g/dL Normal 13.0-17.0 [facility] Comment on above: Order Comment: Speci men Type: BLOOD SPECIMENOrdering Facility: [facility] Address: [address] [place] [address] Performed By: #### 5 8410-2 ####[facility] LABORATORYCLIA [id number] [address] [place] [facility] MCH (RBC) [Entitic mass] 30.1 pg Normal 26.0-34.0 [facility] Comment on above: Order Comment: Speci men Type: BLOOD SPECIMENOrdering Facility: [facility] Address: [address] [place] [address] Performed By: #### 5 8410-2 ####[facility] LABORATORYCLIA [id number] [address] [place] [facility] MCHC (RBC) [Mass/Vol] 33.6 g/dL Normal 30.5-36.0 [facility] Comment on above: Order Comment: Speci men Type: BLOOD SPECIMENOrdering Facility: [facility] Address: [address] [place] [address] Performed By: #### 5 8410-2 ####[facility] LABORATORYCLIA [id number] [address] STATES OF [facility] MCV (RBC) [Entitic vol] 89.5 fL Normal 80.0-100.0 [facility] Comment on above: Order Comment: Speci men Type: BLOOD SPECIMENOrdering Facility: [facility] Address: [address] [place] [address] Performed By: #### 5 8410-2 ####[facility] LABORATORYCLIA [id number] [address] Nucleated RBC (Bld) [#/Vol] 10*3/uL Normal <0.01 [facility] Comment on above: Order Comment: Speci men Type: BLOOD SPECIMENOrdering Facility: [facility] Address: [address] [place] [address] Performed By: #### 5 8410-2 ####[facility] LABORATORYCLIA [id number] [address] Platelet mean volume (Bld) [Entitic vol] 8.5 fL Low 9.0-12.7 [facility] Comment on above: Order Comment: Speci men Type: BLOOD SPECIMENOrdering Facility: [facility] Address: [address] [place] [address] Performed By: #### 5 8410-2 ####[facility] LABORATORYCLIA [id number] [place] [address] [place] Platelets (Bld) [#/Vol] 195 10*3/uL Normal 150-400 [facility] Comment on above: Order Comment: Speci men Type: BLOOD SPECIMENOrdering Facility: [facility] Address: [address] [place] [address] Performed By: #### 5 8410-2 ####[facility] LABORATORYCLIA [id number] [place] [address] [place] RBC (Bld) [#/Vol] 4.39 10*6/uL Normal 4.20-6.00 [facility] Comment on above: Order Comment: Speci men Type: BLOOD SPECIMENOrdering Facility: [facility] Address: [address] [place] [address] Performed By: #### 5 8410-2 ####[facility] LABORATORYCLIA [id number] [place] [address] [place] WBC (Bld) [#/Vol] 8.38 10*3/uL Normal 3.70-11.00 [facility] Comment on above: Order Comment: Speci men Type: BLOOD SPECIMENOrdering Facility: [facility] Address: [address] [place] [address] Performed By: #### 5 8410-2 ####[facility] LABORATORYCLIA [id number] [address] [place] CONSULT PROGon 08-23-2024 CONSULT PROG Normal [facility] CONSULT PROG Normal [facility] Hematocrit Auto (Bld) [Volum e fraction]on 08-23-2024 Hematocrit (Bld) [Volume fraction] 38.4 % Low 39.0-51.0 [facility] Comment on above: Order Comment: Speci men Type: BLOOD SPECIMENOrdering Facility: [facility] Address: [address] [place] [address] Performed By: #### 4 544-3, 718-7 ####[facility] LABORATORYCLIA [id number] [address] Hgb Bld-mCncon 08-23-2024 Hemoglobin (Bld) [Mass/Vol] 12.7 g/dL Low 13.0-17.0 [facility] Comment on above: Order Comment: Speci men Type: BLOOD SPECIMENOrdering Facility: [facility] Address: [address] [place] [address] Performed By: #### 4 544-3, 718-7 ####[facility] LABORATORYCLIA [id number] [address] [place] NUTRITIONon 08-23-2024 NUTRITION Normal [facility] aPTT PPPon 08-23-2024 aPTT Coag (PPP) [Time] 88.7 s High 23.0-32.4 [facility] Comment on above: Order Comment: Speci men Type: BLOOD SPECIMENOrdering Facility: [facility] Address: [address] [place] [address] Performed By: #### 1 4979-9 ####[facility] LABORATORYCLIA [id number] [address] [place] aPTT Coag (PPP) [Time] s High 23.0-32.4 [facility] Comment on above: Order Comment: Speci men Type: BLOOD SPECIMENOrdering Facility: [facility] Address: [address] [place] [address] Performed By: #### 1 4979-9 ####[facility] LABORATORYCLIA [id number] [address] [place] aPTT Coag (PPP) [Time] 39.0 s High 23.0-32.4 [facility] Comment on above: Order Comment: Speci men Type: BLOOD SPECIMENOrdering Facility: [facility] Address: [address] [place] [address] Performed By: #### 1 4979-9 ####[facility] LABORATORYCLIA [id number] [address] aPTT Coag (PPP) [Time] 69.1 s High 23.0-32.4 [facility] Comment on above: Order Comment: Speci men Type: BLOOD SPECIMENOrdering Facility: [facility] Address: [facility] [place] [address] Performed By: #### 1 4979-9 ####[facility] LABORATORYCLIA [id number] [place] [address] [place] ALLIED HEALTHon 08-22-2024 ALLIED HEALTH Normal [facility] Basic metabolic 2000 panelon 08-22-2024 Anion gap [Moles/Vol] 10 mmol/L Normal 8-15 [facility] Comment on above: Order Comment: Speci men Type: BLOOD SPECIMENOrdering Facility: [facility] Address: [address] [place] [address] Performed By: #### 2 4321-2 ####[facility] LABORATORYCLIA [id number] [place] [address] [place] Calcium [Mass/Vol] 9.3 mg/dL Normal 8.5-10.2 [facility] Comment on above: Order Comment: Speci men Type: BLOOD SPECIMENOrdering Facility: [facility] Address: [address] [place] [address] Performed By: #### 2 4321-2 ####[facility] LABORATORYCLIA [id number] [place] [address] [place] Chloride [Moles/Vol] 98 mmol/L Normal 98-107 [facility] Comment on above: Order Comment: Speci men Type: BLOOD SPECIMENOrdering Facility: [facility] Address: [address] [place] [address] Performed By: #### 2 4321-2 ####[facility] LABORATORYCLIA [id number] [place] [address] [place] CO2 [Moles/Vol] 23 mmol/L Normal 22-30 [facility] Comment on above: Order Comment: Speci men Type: BLOOD SPECIMENOrdering Facility: [facility] Address: [address] [place] [address] Performed By: #### 2 4321-2 ####[facility]STERCLIA [id number] [place] [address] [place] Creatinine [Mass/Vol] 1.16 mg/dL Normal 0.73-1.22 [facility] Comment on above: Order Comment: Yojana riggins Type: BLOOD SPECIMENOrdering Facility: [facility] Address: [address] [place] [address] Performed By: #### 2 4321-2 ####[facility] [id number] [address] Creatinine and Glomerular filtration rate.predicted panel (S/P/Bld) 68 mL/min/1.73m??? Normal >=60 [facility] Comment on above: Order Comment: Yojana riggins Type: BLOOD SPECIMENOrdering Facility: [facility] Address: [address] [place] [address] Result Comment: Apple mated Glomerular Filtration Rate (eGFR) is calculated using the 2020 CKD-EPI creatinine equation. This equation utilizes serum creatinine, sex, and age as parameters. The creatinine assay has traceable calibration to isotope dilution-mass spectrometry. Refer to KDIGO guidelines for clinical interpretation. In patients with unstable renal function, e.g. those with acute kidney injury, the eGFR may not accurately reflect actual GFR. Performed By: #### 2 4321-2 ####[facility] [id number] [address] [place] Glucose [Mass/Vol] 153 mg/dL High 74-99 [facility] Comment on above: Order Comment: Yojana riggins Type: BLOOD SPECIMENOrdering Facility: [facility] Address: [address] [place] [address] Result Comment: The [place] Diabetes [employer] (ADA) provides guidance for cutoff values for fasting glucose and random glucose. The ADA defines fasting as no caloric intake for at least 8 hours. Fasting plasma glucose results between 100 to 125 mg/dL indicate increased risk for diabetes (prediabetes).Fasting plasma glucose results greater than or equal to 126 mg/dL meet the criteria for diagnosis of diabetes. In the absence of unequivocal hyperglycemia, results should be confirmed by repeat testing. In a patient with classic symptoms of hyperglycemia or hyperglycemic crisis, random plasma glucose results greater than or equal to 200 mg/dL meet the criteria for diagnosis of diabetes.Reference: Standards of Medical Care in Diabetes 2016, [place] [employer]. Diabetes Care. 2016.39(Suppl 1). Performed By: #### 2 4321-2 ####[facility] LABORATORYCLIA [id number] [address] STATES OF [facility] Potassium [Moles/Vol] 4.2 mmol/L Normal 3.7-5.1 [facility] Comment on above: Order Comment: Speci men Type: BLOOD SPECIMENOrdering Facility: [facility] Address: [address] [place] [address] Performed By: #### 2 4321-2 ####[facility] LABORATORYCLIA [id number] [address] Sodium [Moles/Vol] 131 mmol/L Low 136-144 [facility] Comment on above: Order Comment: Speci men Type: BLOOD SPECIMENOrdering Facility: [facility] Address: [address] [place] [address] Performed By: #### 2 4321-2 ####[facility] LABORATORYCLIA [id number] [address] [place] [facility] Urea nitrogen [Mass/Vol] 23 mg/dL Normal 9-24 [facility] Comment on above: Order Comment: Speci men Type: BLOOD SPECIMENOrdering Facility: [facility] Address: [address] [place] [address] Performed By: #### 2 4321-2 ####[facility] LABORATORYCLIA [id number] [address] [place] CBC panel Auto (Bld)on 08-22 Erythrocyte distribution width (RBC) [Ratio] 13.9 % Normal 11.5-15.0 [facility] Comment on above: Order Comment: Speci men Type: BLOOD SPECIMENOrdering Facility: [facility] Address: [address] [place] [address] Performed By: #### 5 8410-2 ####[facility] LABORATORYCLIA [id number] [address] Hematocrit (Bld) [Volume fraction] 40.6 % Normal 39.0-51.0 [facility] Comment on above: Order Comment: Speci men Type: BLOOD SPECIMENOrdering Facility: [facility] Address: [address] [place] [address] Performed By: #### 5 8410-2 ####[facility] LABORATORYCLIA [id number] [address] OF [facility] Hemoglobin (Bld) [Mass/Vol] 13.7 g/dL Normal 13.0-17.0 [facility] Comment on above: Order Comment: Speci men Type: BLOOD SPECIMENOrdering Facility: [facility] Address: [address] [place] [address] Performed By: #### 5 8410-2 ####[facility] LABORATORYCLIA [id number] [address] OF [facility] MCH (RBC) [Entitic mass] 30.5 pg Normal 26.0-34.0 [facility] Comment on above: Order Comment: Speci men Type: BLOOD SPECIMENOrdering Facility: [facility] Address: [address] [place] [address] Performed By: #### 5 8410-2 ####[facility] LABORATORYCLIA [id number] [address] [place] MCHC (RBC) [Mass/Vol] 33.7 g/dL Normal 30.5-36.0 [facility] Comment on above: Order Comment: Speci men Type: BLOOD SPECIMENOrdering Facility: [facility] Address: [address] [place] [address] Performed By: #### 5 8410-2 ####[facility] LABORATORYCLIA [id number] [address] MCV (RBC) [Entitic vol] 90.4 fL Normal 80.0-100.0 [facility] Comment on above: Order Comment: Speci men Type: BLOOD SPECIMENOrdering Facility: [facility] Address: [address] [place] [address] Performed By: #### 5 8410-2 ####[facility] LABORATORYCLIA [id number] [address] [place] Nucleated RBC (Bld) [#/Vol] 10*3/uL Normal <0.01 [facility] Comment on above: Order Comment: Speci men Type: BLOOD SPECIMENOrdering Facility: [facility] Address: [address] [place] [address] Performed By: #### 5 8410-2 ####[facility] LABORATORYCLIA [id number] [place] [address] [place] Platelet mean volume (Bld) [Entitic vol] 8.9 fL Low 9.0-12.7 [facility] Comment on above: Order Comment: Speci men Type: BLOOD SPECIMENOrdering Facility: [facility] Address: [address] [place] [address] Performed By: #### 5 8410-2 ####[facility] LABORATORYCLIA [id number] [address] [place] Platelets (Bld) [#/Vol] 208 10*3/uL Normal 150-400 [facility] Comment on above: Order Comment: Speci men Type: BLOOD SPECIMENOrdering Facility: [facility] Address: [address] [place] [address] Performed By: #### 5 8410-2 ####[facility] LABORATORYCLIA [id number] [place] [address] [place] RBC (Bld) [#/Vol] 4.49 10*6/uL Normal 4.20-6.00 [facility] Comment on above: Order Comment: Speci men Type: BLOOD SPECIMENOrdering Facility: [facility] Address: [address] [place] [address] Performed By: #### 5 8410-2 ####[facility] LABORATORYCLIA [id number] [place] [address] [place] WBC (Bld) [#/Vol] 8.44 10*3/uL Normal 3.70-11.00 [facility] Comment on above: Order Comment: Speci men Type: BLOOD SPECIMENOrdering Facility: [facility] Address: [address] [place] [address] Performed By: #### 5 8410-2 ####[facility] LABORATORYCLIA [id number] [place] [address] [place] CNCOon 08-22-2024 CNCO Letter Text Normal [facility] CONSULTon 08-22-2024 CONSULT Normal [facility] CT ABD/PEL W IVCONon 025 CT ABD/PEL W IVCON Normal [facility] XR ABDOMEN 1V SUPINEon 08-22 XR ABDOMEN 1V SUPINE Normal [facility] aPTT PPPon 08-22-2024 aPTT Coag (PPP) [Time] 60.1 s High 23.0-32.4 [facility] Comment on above: Order Comment: Speci men Type: BLOOD SPECIMENOrdering Facility: [facility] Address: [address] [place] [address] Performed By: #### 1 4979-9 ####[facility] LABORATORYCLIA [id number] [place] [address] [place] Basic metabolic 2000 panelon 08-21-2024 Anion gap [Moles/Vol] 13 mmol/L Normal 8-15 [facility] Comment on above: Order Comment: Speci men Type: BLOOD SPECIMENOrdering Facility: [facility] [facility] Address: [address] [place] [address] Performed By: #### 2 4321-2 ####[facility]ORATORYCLIA [id number] [place] [address] [place] Calcium [Mass/Vol] 9.2 mg/dL Normal 8.5-10.2 [facility] Comment on above: Order Comment: Speci men Type: BLOOD SPECIMENOrdering Facility: [facility] Address: [address] [place] [address] Performed By: #### 2 4321-2 ####[facility] LABORATORYCLIA [id number] [address] [place] Chloride [Moles/Vol] 100 mmol/L Normal 98-107 [facility] Comment on above: Order Comment: Speci men Type: BLOOD SPECIMENOrdering Facility: [facility] Address: [address] [place] [address] Performed By: #### 2 4321-2 ####[facility] LABORATORYCLIA [id number] [address] [place] CO2 [Moles/Vol] 19 mmol/L Low 22-30 [facility] Comment on above: Order Comment: Speci men Type: BLOOD SPECIMENOrdering Facility: [facility] Address: [address] [place] [address] Performed By: #### 2 4321-2 ####[facility] [id number] [address] STATES OF [facility] Creatinine [Mass/Vol] 1.25 mg/dL High 0.73-1.22 [facility] Comment on above: Order Comment: Speci men Type: BLOOD SPECIMENOrdering Facility: [facility] Address: [address] [place] [address] Performed By: #### 2 4321-2 ####[facility] LABORATORYCLIA [id number] [address] Creatinine and Glomerular filtration rate.predicted panel (S/P/Bld) 62 mL/min/1.73m??? Normal >=60 [facility] Comment on above: Order Comment: Speci men Type: BLOOD SPECIMENOrdering Facility: [facility] Address: [address] [place] [address] Result Comment: Apple mated Glomerular Filtration Rate (eGFR) is calculated using the 2020 CKD-EPI creatinine equation. This equation utilizes serum creatinine, sex, and age as parameters. The creatinine assay has traceable calibration to isotope dilution-mass spectrometry. Refer to KDIGO guidelines for clinical interpretation. In patients with unstable renal function, e.g. those with acute kidney injury, the eGFR may not accurately reflect actual GFR. Performed By: #### 2 4321-2 ####[facility] LABORATORYCLIA [id number] [place] [address] [place] Glucose [Mass/Vol] 129 mg/dL High 74-99 [facility] Comment on above: Order Comment: Yojana riggins Type: BLOOD SPECIMENOrdering Facility: [facility] Address: [address] [place] [address] Result Comment: The [place] Diabetes Association (ADA) provides guidance for cutoff values for fasting glucose and random glucose. The ADA defines fasting as no caloric intake for at least 8 hours. Fasting plasma glucose results between 100 to 125 mg/dL indicate increased risk for diabetes (prediabetes).Fasting plasma glucose results greater than or equal to 126 mg/dL meet the criteria for diagnosis of diabetes. In the absence of unequivocal hyperglycemia, results should be confirmed by repeat testing. In a patient with classic symptoms of hyperglycemia or hyperglycemic crisis, random plasma glucose results greater than or equal to 200 mg/dL meet the criteria for diagnosis of diabetes.Reference: Standards of Medical Care in Diabetes 2016, [place] [employer]. Diabetes Care. 2016.39(Suppl 1). Performed By: #### 2 4321-2 ####[facility]ORATORYCLIA [id number] [place] [address] [place] Potassium [Moles/Vol] 4.6 mmol/L Normal 3.7-5.1 [facility] Comment on above: Order Comment: Yojana riggins Type: BLOOD SPECIMENOrdering Facility: [facility] Address: [address] [place] [address] Performed By: #### 2 4321-2 ####[facility] LABORATORYCLIA [id number] [place] [address] [place] Sodium [Moles/Vol] 132 mmol/L Low 136-144 [facility] Comment on above: Order Comment: Yojana riggins Type: BLOOD SPECIMENOrdering Facility: [facility] Address: [address] [place] [address] Performed By: #### 2 4321-2 ####[facility]ORATORYCLIA [id number] [place] [address] [place] Urea nitrogen [Mass/Vol] 24 mg/dL Normal 9-24 [facility] Comment on above: Order Comment: Speci men Type: BLOOD SPECIMENOrdering Facility: [facility] Address: [address] [place] [address] Performed By: #### 2 4321-2 ####[facility] LABORATORYCLIA [id number] [address] OF [facility] CASE MANAGEMon 08-21-2024 CASE MANAGEM Normal [facility] CBC panel Auto (Bld)on 08-21 Erythrocyte distribution width (RBC) [Ratio] 13.9 % Normal 11.5-15.0 [facility] Comment on above: Order Comment: Speci men Type: BLOOD SPECIMENOrdering Facility: [facility] Address: [address] [place] [address] Performed By: #### 5 8410-2 ####[facility] LABORATORYCLIA [id number] [address] STATES [facility] Hematocrit (Bld) [Volume fraction] 41.2 % Normal 39.0-51.0 [facility] Comment on above: Order Comment: Speci men Type: BLOOD SPECIMENOrdering Facility: [facility] Address: [address] [place] [address] Performed By: #### 5 8410-2 ####[facility]ORATORYCLIA [id number] [address] [place] Hemoglobin (Bld) [Mass/Vol] 14.0 g/dL Normal 13.0-17.0 [facility] Comment on above: Order Comment: Speci men Type: BLOOD SPECIMENOrdering Facility: [facility] Address: [address] [place] [address] Performed By: #### 5 8410-2 ####[facility]ORATORYCLIA [id number] [address] STATES [facility] MCH (RBC) [Entitic mass] 30.8 pg Normal 26.0-34.0 [facility] Comment on above: Order Comment: Speci men Type: BLOOD SPECIMENOrdering Facility: [facility] Address: [address] [place] [address] Performed By: #### 5 8410-2 ####[facility] LABORATORYCLIA [id number] [address] MCHC (RBC) [Mass/Vol] 34.0 g/dL Normal 30.5-36.0 [facility] Comment on above: Order Comment: Speci men Type: BLOOD SPECIMENOrdering Facility: [facility] Address: [address] [place] [address] Performed By: #### 5 8410-2 ####[facility]ORATORYCLIA [id number] [address] [place] MCV (RBC) [Entitic vol] 90.7 fL Normal 80.0-100.0 [facility] Comment on above: Order Comment: Speci men Type: BLOOD SPECIMENOrdering Facility: [facility] Address: [address] [place] [address] Performed By: #### 5 8410-2 ####[facility] LABORATORYCLIA [id number] [address] OF [facility] Nucleated RBC (Bld) [#/Vol] 10*3/uL Normal <0.01 [facility] Comment on above: Order Comment: Speci men Type: BLOOD SPECIMENOrdering Facility: [facility] Address: [address] [place] [address] Performed By: #### 5 8410-2 ####[facility]ORATORYCLIA [id number] [address] STATES [facility] Platelet mean volume (Bld) [Entitic vol] 8.6 fL Low 9.0-12.7 [facility] Comment on above: Order Comment: Speci men Type: BLOOD SPECIMENOrdering Facility: [facility] Address: [address] [place] [address] Performed By: #### 5 8410-2 ####[facility]ORATORYCLIA [id number] [address] [place] Platelets (Bld) [#/Vol] 216 10*3/uL Normal 150-400 [facility] Comment on above: Order Comment: Speci men Type: BLOOD SPECIMENOrdering Facility: [facility] Address: [address] [place] [address] Performed By: #### 5 8410-2 ####[facility]ORATORYCLIA [id number] [place] [address] [place] RBC (Bld) [#/Vol] 4.54 10*6/uL Normal 4.20-6.00 [facility] Comment on above: Order Comment: Speci men Type: BLOOD SPECIMENOrdering Facility: [facility] Address: [address] [place] [address] Performed By: #### 5 8410-2 ####[facility] LABORATORYCLIA [id number] [address] OF [facility] WBC (Bld) [#/Vol] 8.97 10*3/uL Normal 3.70-11.00 [facility] Comment on above: Order Comment: Speci men Type: BLOOD SPECIMENOrdering Facility: [facility] Address: [address] [place] [address] Performed By: #### 5 8410-2 ####[facility] LABORATORYCLIA [id number] [address] OF [facility] CONSULTon 08-21-2024 CONSULT Normal [facility] CONSULT PROGon 08-21-2024 CONSULT PROG Normal [facility] NURSING PROGon 08-21-2024 NURSING PROG Normal [facility] XR ABDOMEN 1V SUPINEon 08-21 XR ABDOMEN 1V SUPINE Normal [facility] XR THORACIC 3V AP/LAT/SWIMME RSon 08-21-2024 XR THORACIC 3V AP/LAT/SWIMMERS Normal [facility] aPTT PPPon 08-21-2024 aPTT Coag (PPP) [Time] 64.3 s High 23.0-32.4 [facility] Comment on above: Order Comment: Speci men Type: BLOOD SPECIMENOrdering Facility: [facility] Address: [address] [place] [address] Performed By: #### 1 4979-9 ####[facility]ORATORYCLIA [id number] [place] [address] [place] ALLIED HEALTHon 08-20-2024 ALLIED HEALTH Normal [facility] Basic metabolic 2000 panelon 08-20-2024 Anion gap [Moles/Vol] 11 mmol/L Normal 8-15 [facility] Comment on above: Order Comment: Speci men Type: BLOOD SPECIMENOrdering Facility: [facility] Address: [address] [place] [address] Performed By: #### 2 4321-2 ####[facility]ORATORYCLIA [id number] [place] [address] [place] Calcium [Mass/Vol] 8.9 mg/dL Normal 8.5-10.2 [facility] Comment on above: Order Comment: Speci men Type: BLOOD SPECIMENOrdering Facility: [facility] Address: [address] [place] [address] Performed By: #### 2 4321-2 ####[facility]ORATORYCLIA [id number] [place] [address] [place] Chloride [Moles/Vol] 101 mmol/L Normal 98-107 [facility] Comment on above: Order Comment: Speci men Type: BLOOD SPECIMENOrdering Facility: [facility] Address: [address] [place] [address] Performed By: #### 2 4321-2 ####[facility]ORATORYCLIA [id number] [place] [address] [place] CO2 [Moles/Vol] 21 mmol/L Low 22-30 [facility] Comment on above: Order Comment: Speci men Type: BLOOD SPECIMENOrdering Facility: [facility] Address: [address] [place] [address] Performed By: #### 2 4321-2 ####[facility]ORATORYCLIA [id number] [place] [address] [place] Creatinine [Mass/Vol] 1.31 mg/dL High 0.73-1.22 [facility] Comment on above: Order Comment: Speci men Type: BLOOD SPECIMENOrdering Facility: [facility] Address: [address] [place] [address] Performed By: #### 2 4321-2 ####[facility]ORATORYCLIA [id number] [place] [id number] [place] Creatinine and Glomerular filtration rate.predicted panel (S/P/Bld) 59 mL/min/1.73m??? Low >=60 [facility] Comment on above: Order Comment: Yojana riggins Type: BLOOD SPECIMENOrdering Facility: [facility] Address: [address] [place] [address] Result Comment: Apple mated Glomerular Filtration Rate (eGFR) is calculated using the 2020 CKD-EPI creatinine equation. This equation utilizes serum creatinine, sex, and age as parameters. The creatinine assay has traceable calibration to isotope dilution-mass spectrometry. Refer to KDIGO guidelines for clinical interpretation. In patients with unstable renal function, e.g. those with acute kidney injury, the eGFR may not accurately reflect actual GFR. Performed By: #### 2 4321-2 ####[facility]ORATORYCLIA [id number] [place] [address] [place] Glucose [Mass/Vol] 133 mg/dL High 74-99 [facility] Comment on above: Order Comment: Yojana gilson Type: BLOOD SPECIMENOrdering Facility: [facility] Address: [address] [place] [address] Result Comment: The [place] Diabetes Association (ADA) provides guidance for cutoff values for fasting glucose and random glucose. The ADA defines fasting as no caloric intake for at least 8 hours. Fasting plasma glucose results between 100 to 125 mg/dL indicate increased risk for diabetes (prediabetes).Fasting plasma glucose results greater than or equal to 126 mg/dL meet the criteria for diagnosis of diabetes. In the absence of unequivocal hyperglycemia, results should be confirmed by repeat testing. In a patient with classic symptoms of hyperglycemia or hyperglycemic crisis, random plasma glucose results greater than or equal to 200 mg/dL meet the criteria for diagnosis of diabetes.Reference: Standards of Medical Care in Diabetes 2016, [place] [employer]. Diabetes Care. 2016.39(Suppl 1). Performed By: #### 2 4321-2 ####[facility]ORATORYCLIA [id number] [place] [address] [place] Potassium [Moles/Vol] 4.1 mmol/L Normal 3.7-5.1 [facility] Comment on above: Order Comment: Speci men Type: BLOOD SPECIMENOrdering Facility: [facility] Address: [address] [place] [address] Performed By: #### 2 4321-2 ####[facility]ORATORYCLIA [id number] [address] [place] Sodium [Moles/Vol] 133 mmol/L Low 136-144 [facility] Comment on above: Order Comment: Speci men Type: BLOOD SPECIMENOrdering Facility: [facility] Address: [address] [place] [address] Performed By: #### 2 4321-2 ####[facility]ORATORYCLIA [id number] [address] [place] Urea nitrogen [Mass/Vol] 34 mg/dL High 9-24 [facility] Comment on above: Order Comment: Speci men Type: BLOOD SPECIMENOrdering Facility: [facility] Address: [address] [place] [address] Performed By: #### 2 4321-2 ####[facility]ORATORYCLIA [id number] [address] [place] CBC panel Auto (Bld)on 08-20 Erythrocyte distribution width (RBC) [Ratio] 13.8 % Normal 11.5-15.0 [facility] Comment on above: Order Comment: Speci men Type: BLOOD SPECIMENOrdering Facility: [facility] Address: [address] [place] [address] Performed By: #### 5 8410-2 ####[facility] LABORATORYCLIA [id number] [address] [place] Hematocrit (Bld) [Volume fraction] 40.0 % Normal 39.0-51.0 [facility] Comment on above: Order Comment: Speci men Type: BLOOD SPECIMENOrdering Facility: [facility] Address: [address] [place] [address] Performed By: #### 5 8410-2 ####[facility]ORATORYCLIA [id number] [address] Hemoglobin (Bld) [Mass/Vol] 13.6 g/dL Normal 13.0-17.0 [facility] Comment on above: Order Comment: Speci men Type: BLOOD SPECIMENOrdering Facility: [facility] Address: [address] [place] [address] Performed By: #### 5 8410-2 ####[facility]ORATORYCLIA [id number] [address] MCH (RBC) [Entitic mass] 30.5 pg Normal 26.0-34.0 [facility] Comment on above: Order Comment: Speci men Type: BLOOD SPECIMENOrdering Facility: [facility] Address: [address] [place] [address] Performed By: #### 5 8410-2 ####[facility]ORATORYCLIA [id number] [address] MCHC (RBC) [Mass/Vol] 34.0 g/dL Normal 30.5-36.0 [facility] Comment on above: Order Comment: Speci men Type: BLOOD SPECIMENOrdering Facility: [facility] Address: [address] [place] [address] Performed By: #### 5 8410-2 ####[facility]ORATORYCLIA [id number] [address] MCV (RBC) [Entitic vol] 89.7 fL Normal 80.0-100.0 [facility] Comment on above: Order Comment: Speci men Type: BLOOD SPECIMENOrdering Facility: [facility] Address: [address] [place] [address] Performed By: #### 5 8410-2 ####[facility]ORATORYCLIA [id number] [address] Nucleated RBC (Bld) [#/Vol] 10*3/uL Normal <0.01 [facility] Comment on above: Order Comment: Speci men Type: BLOOD SPECIMENOrdering Facility: [facility] Address: [address] [place] [address] Performed By: #### 5 8410-2 ####[facility]ORATORYCLIA [id number] [place] [address] [place] Platelet mean volume (Bld) [Entitic vol] 8.9 fL Low 9.0-12.7 [facility] Comment on above: Order Comment: Speci men Type: BLOOD SPECIMENOrdering Facility: [facility] Address: [address] [place] [address] Performed By: #### 5 8410-2 ####[facility]ATORYCLIA [id number] [address] [place] Platelets (Bld) [#/Vol] 219 10*3/uL Normal 150-400 [facility] Comment on above: Order Comment: Speci men Type: BLOOD SPECIMENOrdering Facility: [facility] Address: [address] [place] [address] Performed By: #### 5 8410-2 ####[facility]ATORYCLIA [id number] [place] [address] [place] RBC (Bld) [#/Vol] 4.46 10*6/uL Normal 4.20-6.00 [facility] Comment on above: Order Comment: Speci men Type: BLOOD SPECIMENOrdering Facility: [facility] Address: [address] [place] [address] Performed By: #### 5 8410-2 ####[facility]ATORYCLIA [id number] [place] [address] [place] WBC (Bld) [#/Vol] 7.56 10*3/uL Normal 3.70-11.00 [facility] Comment on above: Order Comment: Speci men Type: BLOOD SPECIMENOrdering Facility: [facility] Address: [address] [place] [address] Performed By: #### 5 8410-2 ####[facility]ORATORYCLIA [id number] [place], [place] [address] [place] [address] [place] CNPNon 08-20-2024 CNPN Normal [facility] CONSULTon 08-20-2024 CONSULT Normal [facility] MRI THORACIC SPINE WO IVCONo n 08-20-2024 MRI THORACIC SPINE WO IVCON Normal [facility] US CAROTID BILon 08-20-2024 US CAROTID SHIVANI Normal [facility] aPTT PPPon 08-20-2024 aPTT Coag (PPP) [Time] 66.7 s High 23.0-32.4 [facility] Comment on above: Order Comment: Speci men Type: BLOOD SPECIMENOrdering Facility: [facility] Address: [address] [place] [address] Performed By: #### 1 4979-9 ####[facility]ORATORYCLIA [id number] [address] [place] ALLIED HEALTHon 08-19-2024 ALLIED HEALTH Normal [facility] ANES POSTPROC EVALon 025 ANES POSTPROC EVAL Normal [facility] ANES PRE-OPon 08-19-2024 ANES PRE-OP Normal [facility] BRIEF OP NOTon 08-19-2024 BRIEF OP NOT Normal [facility] Basic metabolic 2000 panelon 08-19-2024 Anion gap [Moles/Vol] 16 mmol/L High 8-15 [facility] Comment on above: Order Comment: Speci men Type: BLOOD SPECIMENOrdering Facility: [facility] Address: [address] [place] [address] Performed By: #### 2 4321-2 ####[facility]ORATORYCLIA [id number] [address] STATES OF [facility] Calcium [Mass/Vol] 9.1 mg/dL Normal 8.5-10.2 [facility] Comment on above: Order Comment: Speci men Type: BLOOD SPECIMENOrdering Facility: [facility] Address: [address] [place] [address] Performed By: #### 2 4321-2 ####[facility]ATORYCLIA [id number] [address] [place] Chloride [Moles/Vol] 97 mmol/L Low 98-107 [facility] Comment on above: Order Comment: Speci men Type: BLOOD SPECIMENOrdering Facility: [facility] Address: [address] [place] [address] Performed By: #### 2 4321-2 ####[facility] LABORATORYCLIA [id number] [address] OF [facility] CO2 [Moles/Vol] 21 mmol/L Low 22-30 [facility] Comment on above: Order Comment: Speci men Type: BLOOD SPECIMENOrdering Facility: [facility] Address: [address] [place] [address] Performed By: #### 2 4321-2 ####[facility]ORATORYCLIA [id number] [address] STATES OF [facility] Creatinine [Mass/Vol] 1.50 mg/dL High 0.73-1.22 [facility] Comment on above: Order Comment: Speci men Type: BLOOD SPECIMENOrdering Facility: [facility] Address: [address] [place] [address] Performed By: #### 2 4321-2 ####[facility]ORATORYCLIA [id number] [address] Creatinine and Glomerular filtration rate.predicted panel (S/P/Bld) 50 mL/min/1.73m??? Low >=60 [facility] Comment on above: Order Comment: Speci men Type: BLOOD SPECIMENOrdering Facility: [facility] Address: [address] [place] [address] Result Comment: Apple mated Glomerular Filtration Rate (eGFR) is calculated using the 2020 CKD-EPI creatinine equation. This equation utilizes serum creatinine, sex, and age as parameters. The creatinine assay has traceable calibration to isotope dilution-mass spectrometry. Refer to KDIGO guidelines for clinical interpretation. In patients with unstable renal function, e.g. those with acute kidney injury, the eGFR may not accurately reflect actual GFR. Performed By: #### 2 4321-2 ####[facility]ATORYCLIA [id number] [place] [address] [place] Glucose [Mass/Vol] 80 mg/dL Normal 74-99 [facility] Comment on above: Order Comment: Simrani gilson Type: BLOOD SPECIMENOrdering Facility: [facility] Address: [address] [place] [address] Result Comment: The [place] Diabetes [employer] (ADA) provides guidance for cutoff values for fasting glucose and random glucose. The ADA defines fasting as no caloric intake for at least 8 hours. Fasting plasma glucose results between 100 to 125 mg/dL indicate increased risk for diabetes (prediabetes).Fasting plasma glucose results greater than or equal to 126 mg/dL meet the criteria for diagnosis of diabetes. In the absence of unequivocal hyperglycemia, results should be confirmed by repeat testing. In a patient with classic symptoms of hyperglycemia or hyperglycemic crisis, random plasma glucose results greater than or equal to 200 mg/dL meet the criteria for diagnosis of diabetes.Reference: Standards of Medical Care in Diabetes 2016, [place] [employer]. Diabetes Care. 2016.39(Suppl 1). Performed By: #### 2 4321-2 ####[facility] LABORATORYCLIA [id number] [place] [address] [place] Potassium [Moles/Vol] 3.9 mmol/L Normal 3.7-5.1 [facility] Comment on above: Order Comment: Yojana gilson Type: BLOOD SPECIMENOrdering Facility: [facility] Address: [address] [place] [address] Performed By: #### 2 4321-2 ####[facility] LABORATORYCLIA [id number] [place] [id number] [place] Sodium [Moles/Vol] 134 mmol/L Low 136-144 [facility] Comment on above: Order Comment: Speci men Type: BLOOD SPECIMENOrdering Facility: [facility] Address: [address] [place] [address] Performed By: #### 2 4321-2 ####[facility] LABORATORYCLIA [id number] [place] [address] [place] Urea nitrogen [Mass/Vol] 33 mg/dL High 9-24 [facility] Comment on above: Order Comment: Speci men Type: BLOOD SPECIMENOrdering Facility: [facility] Address: [address] [place] [address] Performed By: #### 2 4321-2 ####[facility] LABORATORYCLIA [id number] [place] [id number] [place] CASE MGT INIT ASSESon 2024 CASE MGT INIT ASSES Normal [facility] CBC panel Auto (Bld)on 08-19 Erythrocyte distribution width (RBC) [Ratio] 13.3 % Normal 11.5-15.0 [facility] Comment on above: Order Comment: Speci men Type: BLOOD SPECIMENOrdering Facility: [facility] Address: [address] [place] [address] Performed By: #### 5 8410-2 ####[facility] LABORATORYCLIA [id number] [address] [place] [facility] Hematocrit (Bld) [Volume fraction] 41.4 % Normal 39.0-51.0 [facility] Comment on above: Order Comment: Speci men Type: BLOOD SPECIMENOrdering Facility: [facility] Address: [address] [place] [address] Performed By: #### 5 8410-2 ####[facility] LABORATORYCLIA [id number] [place] [address] [place] Hemoglobin (Bld) [Mass/Vol] 13.9 g/dL Normal 13.0-17.0 [facility] Comment on above: Order Comment: Speci men Type: BLOOD SPECIMENOrdering Facility: [facility] Address: [address] [place] [address] Performed By: #### 5 8410-2 ####[facility] LABORATORYCLIA [id number] [address] [place] MCH (RBC) [Entitic mass] 30.3 pg Normal 26.0-34.0 [facility] Comment on above: Order Comment: Speci men Type: BLOOD SPECIMENOrdering Facility: [facility] Address: [address] [place] [address] Performed By: #### 5 8410-2 ####[facility] LABORATORYCLIA [id number] [address] MCHC (RBC) [Mass/Vol] 33.6 g/dL Normal 30.5-36.0 [facility] Comment on above: Order Comment: Speci men Type: BLOOD SPECIMENOrdering Facility: [facility] Address: [address] [place] [address] Performed By: #### 5 8410-2 ####[facility] LABORATORYCLIA [id number] [address] [place] MCV (RBC) [Entitic vol] 90.4 fL Normal 80.0-100.0 [facility] Comment on above: Order Comment: Speci men Type: BLOOD SPECIMENOrdering Facility: [facility] Address: [address] [place] [address] Performed By: #### 5 8410-2 ####[facility] LABORATORYCLIA [id number] [address] Nucleated RBC (Bld) [#/Vol] 10*3/uL Normal <0.01 [facility] Comment on above: Order Comment: Speci men Type: BLOOD SPECIMENOrdering Facility: [facility] Address: [address] [place] [address] Performed By: #### 5 8410-2 ####[facility] LABORATORYCLIA [id number] [address] Platelet mean volume (Bld) [Entitic vol] 8.8 fL Low 9.0-12.7 [facility] Comment on above: Order Comment: Speci men Type: BLOOD SPECIMENOrdering Facility: [facility] Address: [address] [place] [address] Performed By: #### 5 8410-2 ####[facility] LABORATORYCLIA [id number] [place] [address] [place] Platelets (Bld) [#/Vol] 223 10*3/uL Normal 150-400 [facility] Comment on above: Order Comment: Speci men Type: BLOOD SPECIMENOrdering Facility: [facility] Address: [address] [place] [address] Performed By: #### 5 8410-2 ####[facility]ORATORYCLIA [id number] [place] [address] [place] RBC (Bld) [#/Vol] 4.58 10*6/uL Normal 4.20-6.00 [facility] Comment on above: Order Comment: Speci men Type: BLOOD SPECIMENOrdering Facility: [facility] Address: [address] [place] [address] Performed By: #### 5 8410-2 ####[facility] LABORATORYCLIA [id number] [address] [place] WBC (Bld) [#/Vol] 9.30 10*3/uL Normal 3.70-11.00 [facility] Comment on above: Order Comment: Speci men Type: BLOOD SPECIMENOrdering Facility: [facility] Address: [address] [place] [address] Performed By: #### 5 8410-2 ####[facility] LABORATORYCLIA [id number] [address] OF [facility] CONSULT PROGon 08-19-2024 CONSULT PROG Normal [facility] Creatinine Unsp time (U) [Ma ss/Vol]on 08-19-2024 Creatinine (U) [Mass/Vol] 98.4 mg/dL Normal 46.8-314.5 [facility] Comment on above: Order Comment: Speci men Type: URINE SPECIMENOrdering Facility: [facility] Address: [address] [place] [address] Performed By: #### 3 5674-1, 63840-0 ####[facility] LABORATORYCLIA [id number] [place] [address] [place] ECHO TRANSESOPHAGEALon 08-19 ECHO TRANSESOPHAGEAL Normal [facility] Sodium ?Tm Ur-sCncon 025 Sodium Unsp time (U) [Moles/Vol] <20 Normal 14-216 [facility] Comment on above: Order Comment: Speci men Type: URINE SPECIMENOrdering Facility: [facility] Address: [address] [place] [address] Performed By: #### 3 5674-1, 10452-1 ####[facility] LABORATORYCLIA [id number] [address] STATES OF [facility] XR LUMBAR 3V AP/LAT/L5-S1on 08-19-2024 XR LUMBAR 3V AP/LAT/L5-S1 Normal [facility] XR THORACIC 3V AP/LAT/SWIMME RSon 08-19-2024 XR THORACIC 3V AP/LAT/SWIMMERS Normal [facility] aPTT PPPon 08-19-2024 aPTT Coag (PPP) [Time] 61.8 s High 23.0-32.4 [facility] Comment on above: Order Comment: Speci men Type: BLOOD SPECIMENOrdering Facility: [facility] Address: [address] [place] [address] Performed By: #### 1 4979-9 ####[facility] LABORATORYCLIA [id number] [place] [address] [place] Basic metabolic 2000 panelon 08-18-2024 Anion gap [Moles/Vol] 13 mmol/L Normal 8-15 [facility] Comment on above: Order Comment: Speci men Type: BLOOD SPECIMENOrdering Facility: [facility] Address: [address] [place] [address] Performed By: #### 2 4321-2 ####[facility] LABORATORYCLIA [id number] [place] [address] [place] Calcium [Mass/Vol] 9.1 mg/dL Normal 8.5-10.2 [facility] Comment on above: Order Comment: Speci men Type: BLOOD SPECIMENOrdering Facility: [facility] Address: [address] [place] [address] Performed By: #### 2 4321-2 ####[facility] LABORATORYCLIA [id number] [address] [place] Chloride [Moles/Vol] 98 mmol/L Normal 98-107 [facility] Comment on above: Order Comment: Speci men Type: BLOOD SPECIMENOrdering Facility: [facility] Address: [address] [place] [address] Performed By: #### 2 4321-2 ####[facility] LABORATORYCLIA [id number] [address] [place] CO2 [Moles/Vol] 23 mmol/L Normal 22-30 [facility] Comment on above: Order Comment: Speci men Type: BLOOD SPECIMENOrdering Facility: [facility] Address: [address] [place] [address] Performed By: #### 2 4321-2 ####[facility] LABORATORYCLIA [id number] [address] OF [facility] Creatinine [Mass/Vol] 1.26 mg/dL High 0.73-1.22 [facility] Comment on above: Order Comment: Speci men Type: BLOOD SPECIMENOrdering Facility: [facility] Address: [address] [place] [address] Performed By: #### 2 4321-2 ####[facility] LABORATORYCLIA [id number] [address] Creatinine and Glomerular filtration rate.predicted panel (S/P/Bld) 62 mL/min/1.73m??? Normal >=60 [facility] Comment on above: Order Comment: Speci men Type: BLOOD SPECIMENOrdering Facility: [facility] Address: [address] [place] [address] Result Comment: Apple mated Glomerular Filtration Rate (eGFR) is calculated using the 2020 CKD-EPI creatinine equation. This equation utilizes serum creatinine, sex, and age as parameters. The creatinine assay has traceable calibration to isotope dilution-mass spectrometry. Refer to KDIGO guidelines for clinical interpretation. In patients with unstable renal function, e.g. those with acute kidney injury, the eGFR may not accurately reflect actual GFR. Performed By: #### 2 4321-2 ####[facility]ORATORYCLIA [id number] [place] [address] [place] Glucose [Mass/Vol] 111 mg/dL High 74-99 [facility] Comment on above: Order Comment: Yojana gilson Type: BLOOD SPECIMENOrdering Facility: [facility] Address: [address] [place] [address] Result Comment: The [place] Diabetes [employer] (ADA) provides guidance for cutoff values for fasting glucose and random glucose. The ADA defines fasting as no caloric intake for at least 8 hours. Fasting plasma glucose results between 100 to 125 mg/dL indicate increased risk for diabetes (prediabetes).Fasting plasma glucose results greater than or equal to 126 mg/dL meet the criteria for diagnosis of diabetes. In the absence of unequivocal hyperglycemia, results should be confirmed by repeat testing. In a patient with classic symptoms of hyperglycemia or hyperglycemic crisis, random plasma glucose results greater than or equal to 200 mg/dL meet the criteria for diagnosis of diabetes.Reference: Standards of Medical Care in Diabetes 2016, [place] [employer]. Diabetes Care. 2016.39(Suppl 1). Performed By: #### 2 4321-2 ####[facility] LABORATORYCLIA [id number] [place] [address] [place] Potassium [Moles/Vol] 3.6 mmol/L Low 3.7-5.1 [facility] Comment on above: Order Comment: Yojana gilson Type: BLOOD SPECIMENOrdering Facility: [facility] Address: [address] [place] [address] Performed By: #### 2 4321-2 ####[facility] LABORATORYCLIA [id number] [place] [address] [place] Sodium [Moles/Vol] 134 mmol/L Low 136-144 [facility] Comment on above: Order Comment: Yojana gilson Type: BLOOD SPECIMENOrdering Facility: [facility] Address: [address] [place] [address] Performed By: #### 2 4321-2 ####[facility] LABORATORYCLIA [id number] [place] [address] [place] Urea nitrogen [Mass/Vol] 29 mg/dL High 9-24 [facility] Comment on above: Order Comment: Speci men Type: BLOOD SPECIMENOrdering Facility: [facility] Address: [address] [place] [address] Performed By: #### 2 4321-2 ####[facility]ORATORYCLIA [id number] [address] [place] CBC panel Auto (Bld)on 08-18 Erythrocyte distribution width (RBC) [Ratio] 13.5 % Normal 11.5-15.0 [facility] Comment on above: Order Comment: Speci men Type: BLOOD SPECIMENOrdering Facility: [facility] Address: [address] [place] [address] Performed By: #### 5 8410-2 ####[facility] LABORATORYCLIA [id number] [address] [place] [facility] Hematocrit (Bld) [Volume fraction] 42.6 % Normal 39.0-51.0 [facility] Comment on above: Order Comment: Speci men Type: BLOOD SPECIMENOrdering Facility: [facility] Address: [address] [place] [address] Performed By: #### 5 8410-2 ####[facility]ORATORYCLIA [id number] [address] [place] [facility] Hemoglobin (Bld) [Mass/Vol] 14.4 g/dL Normal 13.0-17.0 [facility] Comment on above: Order Comment: Speci men Type: BLOOD SPECIMENOrdering Facility: [facility] Address: [address] [place] [address] Performed By: #### 5 8410-2 ####[facility]ORATORYCLIA [id number] [address] [place] [facility] MCH (RBC) [Entitic mass] 30.8 pg Normal 26.0-34.0 [facility] Comment on above: Order Comment: Speci men Type: BLOOD SPECIMENOrdering Facility: [facility] Address: [address] [place] [address] Performed By: #### 5 8410-2 ####[facility]ORATORYCLIA [id number] [address] [place] MCHC (RBC) [Mass/Vol] 33.8 g/dL Normal 30.5-36.0 [facility] Comment on above: Order Comment: Speci men Type: BLOOD SPECIMENOrdering Facility: [facility] Address: [address] [place] [address] Performed By: #### 5 8410-2 ####[facility] LABORATORYCLIA [id number] [address] [place] MCV (RBC) [Entitic vol] 91.0 fL Normal 80.0-100.0 [facility] Comment on above: Order Comment: Speci men Type: BLOOD SPECIMENOrdering Facility: [facility] Address: [address] [place] [address] Performed By: #### 5 8410-2 ####[facility] LABORATORYCLIA [id number] [address] Nucleated RBC (Bld) [#/Vol] 10*3/uL Normal <0.01 [facility] Comment on above: Order Comment: Speci men Type: BLOOD SPECIMENOrdering Facility: [facility] Address: [address] [place] [address] Performed By: #### 5 8410-2 ####[facility] LABORATORYCLIA [id number] [address] [place] Platelet mean volume (Bld) [Entitic vol] 8.6 fL Low 9.0-12.7 [facility] Comment on above: Order Comment: Speci men Type: BLOOD SPECIMENOrdering Facility: [facility] Address: [address] [place] [address] Performed By: #### 5 8410-2 ####[facility] LABORATORYCLIA [id number] [address] [place] Platelets (Bld) [#/Vol] 241 10*3/uL Normal 150-400 [facility] Comment on above: Order Comment: Speci men Type: BLOOD SPECIMENOrdering Facility: [facility] Address: [address] [place] [address] Performed By: #### 5 8410-2 ####[facility]ORATORYCLIA [id number] [address] STATES OF [facility] RBC (Bld) [#/Vol] 4.68 10*6/uL Normal 4.20-6.00 [facility] Comment on above: Order Comment: Speci men Type: BLOOD SPECIMENOrdering Facility: [facility] Address: [address] [place] [address] Performed By: #### 5 8410-2 ####[facility]ORATORYCLIA [id number] [address] STATES OF [facility] WBC (Bld) [#/Vol] 9.41 10*3/uL Normal 3.70-11.00 [facility] Comment on above: Order Comment: Speci men Type: BLOOD SPECIMENOrdering Facility: [facility] Address: [address] [place] [address] Performed By: #### 5 8410-2 ####[facility] LABORATORYCLIA [id number] [address] CONSULT PROGon 08-18-2024 CONSULT PROG Normal [facility] aPTT PPPon 08-18-2024 aPTT Coag (PPP) [Time] 63.5 s High 23.0-32.4 [facility] Comment on above: Order Comment: Speci men Type: BLOOD SPECIMENOrdering Facility: [facility] Address: [address] [place] [address] Performed By: #### 1 4979-9 ####[facility]ORATORYCLIA [id number] [address] aPTT Coag (PPP) [Time] 61.7 s High 23.0-32.4 [facility] Comment on above: Order Comment: Speci men Type: BLOOD SPECIMENOrdering Facility: [facility] Address: [address] [place] [address] Performed By: #### 1 4979-9 ####[facility] LABORATORYCLIA [id number] [place] [address] [place] Basic metabolic 2000 panelon 08-17-2024 Anion gap [Moles/Vol] 11 mmol/L Normal 8-15 [facility] Comment on above: Order Comment: Speci men Type: BLOOD SPECIMENOrdering Facility: [facility] Address: [address] [place] [address] Performed By: #### 2 4321-2 ####[facility] LABORATORYCLIA [id number] [place] [address] [place] Calcium [Mass/Vol] 9.2 mg/dL Normal 8.5-10.2 [facility] Comment on above: Order Comment: Speci men Type: BLOOD SPECIMENOrdering Facility: [facility] Address: [address] [place] [address] Performed By: #### 2 4321-2 ####[facility] LABORATORYCLIA [id number] [address] [place] Chloride [Moles/Vol] 102 mmol/L Normal 98-107 [facility] Comment on above: Order Comment: Speci men Type: BLOOD SPECIMENOrdering Facility: [facility] Address: [address] [place] [address] Performed By: #### 2 4321-2 ####[facility] LABORATORYCLIA [id number] [place] [address] [place] CO2 [Moles/Vol] 23 mmol/L Normal 22-30 [facility] Comment on above: Order Comment: Speci men Type: BLOOD SPECIMENOrdering Facility: [facility] Address: [address] [place] [address] Performed By: #### 2 4321-2 ####[facility]ORATORYCLIA [id number] [place] [address] [place] Creatinine [Mass/Vol] 1.26 mg/dL High 0.73-1.22 [facility] Comment on above: Order Comment: Speci men Type: BLOOD SPECIMENOrdering Facility: [facility] Address: [address] [place] [address] Performed By: #### 2 4321-2 ####[facility]UNSTERCLIA [id number] [place] [id number] [place] Creatinine and Glomerular filtration rate.predicted panel (S/P/Bld) 62 mL/min/1.73m??? Normal >=60 [facility] Comment on above: Order Comment: Yojana men Type: BLOOD SPECIMENOrdering Facility: [facility] Address: [address] [place] [address] Result Comment: Apple mated Glomerular Filtration Rate (eGFR) is calculated using the 2020 CKD-EPI creatinine equation. This equation utilizes serum creatinine, sex, and age as parameters. The creatinine assay has traceable calibration to isotope dilution-mass spectrometry. Refer to KDIGO guidelines for clinical interpretation. In patients with unstable renal function, e.g. those with acute kidney injury, the eGFR may not accurately reflect actual GFR. Performed By: #### 2 4321-2 ####[facility]IA [id number] [place] [address] [place] Glucose [Mass/Vol] 155 mg/dL High 74-99 [facility] Comment on above: Order Comment: Yojana riggins Type: BLOOD SPECIMENOrdering Facility: [facility] Address: [address] [place] [address] Result Comment: The [place] Diabetes [employer] (ADA) provides guidance for cutoff values for fasting glucose and random glucose. The ADA defines fasting as no caloric intake for at least 8 hours. Fasting plasma glucose results between 100 to 125 mg/dL indicate increased risk for diabetes (prediabetes).Fasting plasma glucose results greater than or equal to 126 mg/dL meet the criteria for diagnosis of diabetes. In the absence of unequivocal hyperglycemia, results should be confirmed by repeat testing. In a patient with classic symptoms of hyperglycemia or hyperglycemic crisis, random plasma glucose results greater than or equal to 200 mg/dL meet the criteria for diagnosis of diabetes.Reference: Standards of Medical Care in Diabetes 2016, [place] [employer]. Diabetes Care. 2016.39(Suppl 1). Performed By: #### 2 4321-2 ####[facility] LABORATORYIA [id number] [address] [place] Potassium [Moles/Vol] 4.0 mmol/L Normal 3.7-5.1 [facility] Comment on above: Order Comment: Speci men Type: BLOOD SPECIMENOrdering Facility: [facility] Address: [address] [place] [address] Performed By: #### 2 4321-2 ####[facility] LABORATORYCLIA [id number] [address] [place] Sodium [Moles/Vol] 136 mmol/L Normal 136-144 [facility] Comment on above: Order Comment: Speci men Type: BLOOD SPECIMENOrdering Facility: [facility] Address: [address] [place] [address] Performed By: #### 2 4321-2 ####[facility]ORATORYCLIA [id number] [address] [place] Urea nitrogen [Mass/Vol] 25 mg/dL High 9-24 [facility] Comment on above: Order Comment: Speci men Type: BLOOD SPECIMENOrdering Facility: [facility] Address: [address] [place] [address] Performed By: #### 2 4321-2 ####[facility]ORATORYCLIA [id number] [address] [place] CBC panel Auto (Bld)on 08-17 Erythrocyte distribution width (RBC) [Ratio] 13.7 % Normal 11.5-15.0 [facility] Comment on above: Order Comment: Speci men Type: BLOOD SPECIMENOrdering Facility: [facility] Address: [address] [place] [address] Performed By: #### 5 8410-2 ####[facility]ORATORYCLIA [id number] [address] [place] [facility] Hematocrit (Bld) [Volume fraction] 40.5 % Normal 39.0-51.0 [facility] Comment on above: Order Comment: Speci men Type: BLOOD SPECIMENOrdering Facility: [facility] Address: [address] [place] [address] Performed By: #### 5 8410-2 ####[facility]ORATORYCLIA [id number] [address] OF [facility] Hemoglobin (Bld) [Mass/Vol] 13.3 g/dL Normal 13.0-17.0 [facility] Comment on above: Order Comment: Speci men Type: BLOOD SPECIMENOrdering Facility: [facility] Address: [address] [place] [address] Performed By: #### 5 8410-2 ####[facility]ORATORYCLIA [id number] [address] STATES OF [facility] MCH (RBC) [Entitic mass] 30.0 pg Normal 26.0-34.0 [facility] Comment on above: Order Comment: Speci men Type: BLOOD SPECIMENOrdering Facility: [facility] Address: [address] [place] [address] Performed By: #### 5 8410-2 ####[facility]ORATORYCLIA [id number] [address] MCHC (RBC) [Mass/Vol] 32.8 g/dL Normal 30.5-36.0 [facility] Comment on above: Order Comment: Speci men Type: BLOOD SPECIMENOrdering Facility: [facility] Address: [address] [place] [address] Performed By: #### 5 8410-2 ####[facility]ORATORYCLIA [id number] [address] STATES [facility] MCV (RBC) [Entitic vol] 91.4 fL Normal 80.0-100.0 [facility] Comment on above: Order Comment: Speci men Type: BLOOD SPECIMENOrdering Facility: [facility] Address: [address] [place] [address] Performed By: #### 5 8410-2 ####[facility]ORATORYCLIA [id number] [address] Nucleated RBC (Bld) [#/Vol] 10*3/uL Normal <0.01 [facility] Comment on above: Order Comment: Speci men Type: BLOOD SPECIMENOrdering Facility: [facility] Address: [address] [place] [address] Performed By: #### 5 8410-2 ####[facility] LABORATORYCLIA [id number] [place] [address] [place] Platelet mean volume (Bld) [Entitic vol] 8.7 fL Low 9.0-12.7 [facility] Comment on above: Order Comment: Speci men Type: BLOOD SPECIMENOrdering Facility: [facility] Address: [address] [place] [address] Performed By: #### 5 8410-2 ####[facility] LABORATORYCLIA [id number] [address] [place] Platelets (Bld) [#/Vol] 210 10*3/uL Normal 150-400 [facility] Comment on above: Order Comment: Speci men Type: BLOOD SPECIMENOrdering Facility: [facility] Address: [address] [place] [address] Performed By: #### 5 8410-2 ####[facility]ORATORYCLIA [id number] [place] [address] [place] RBC (Bld) [#/Vol] 4.43 10*6/uL Normal 4.20-6.00 [facility] Comment on above: Order Comment: Speci men Type: BLOOD SPECIMENOrdering Facility: [facility] Address: [address] [place] [address] Performed By: #### 5 8410-2 ####[facility]ORATORYCLIA [id number] [place] [address] [place] WBC (Bld) [#/Vol] 8.49 10*3/uL Normal 3.70-11.00 [facility] Comment on above: Order Comment: Speci men Type: BLOOD SPECIMENOrdering Facility: [facility] Address: [address] [place] [address] Performed By: #### 5 8410-2 ####[facility]ORATORYCLIA [id number] [place] [address] [place] CONSULTon 08-17-2024 CONSULT Normal [facility] NURSING PROGon 08-17-2024 NURSING PROG Normal [facility] Urinalysis complete panel (U )on 08-17-2024 Bilirubin Ql (U) Negative Normal Negative [facility] Comment on above: Order Comment: Speci men Type: URINE SPECIMENOrdering Facility: [facility] Address: [address] [place] [address] Performed By: #### 2 4356-8 ####[facility] LABORATORYCLIA [id number] [address] [place] Clarity (Unsp spec) Clear Normal Clear [facility] Comment on above: Order Comment: Speci men Type: URINE SPECIMENOrdering Facility: [facility] Address: [address] [place] [address] Performed By: #### 2 4356-8 ####[facility] LABORATORYCLIA [id number] [address] [place] Color (U) Light Yellow Normal yellow [facility] Comment on above: Order Comment: Speci men Type: URINE SPECIMENOrdering Facility: [facility] Address: [address] [place] [address] Performed By: #### 2 4356-8 ####[facility] LABORATORYCLIA [id number] [address] [place] Epithelial cells LM.HPF (Urine sed) [#/Area] Few Abnormal None Seen [facility] Comment on above: Order Comment: Speci men Type: URINE SPECIMENOrdering Facility: [facility] Address: [address] [place] [address] Performed By: #### 2 4356-8 ####[facility]ORATORYCLIA [id number] [address] [place] Glucose Test strip (U) [Mass/Vol] 4+ Abnormal Trace, Negative [facility] Comment on above: Order Comment: Speci men Type: URINE SPECIMENOrdering Facility: [facility] Address: [address] [place] [address] Performed By: #### 2 4356-8 ####[facility]ORATORYCLIA [id number] [place] [address] [place] Hemoglobin Ql (U) Negative Normal Negative, Trace [facility] Comment on above: Order Comment: Speci men Type: URINE SPECIMENOrdering Facility: [facility] Address: [address] [place] [address] Performed By: #### 2 4356-8 ####[facility]ORATORYCLIA [id number] [place] [address] [place] Ketones Ql (U) Negative Normal Negative, Trace [facility] Comment on above: Order Comment: Speci men Type: URINE SPECIMENOrdering Facility: [facility] Address: [address] [place] [address] Performed By: #### 2 4356-8 ####[facility]ORATORYCLIA [id number] [address] [place] Leukocyte esterase Test strip Ql (U) 250 Jairo/uL Abnormal Negative, 25 Jairo/uL [facility] Comment on above: Order Comment: Speci men Type: URINE SPECIMENOrdering Facility: [facility] Address: [address] [place] [address] Performed By: #### 2 4356-8 ####[facility] LABORATORYCLIA [id number] [address] [place] Nitrite Ql (U) Negative Normal Negative [facility] Comment on above: Order Comment: Speci men Type: URINE SPECIMENOrdering Facility: [facility] Address: [address] [place] [address] Performed By: #### 2 4356-8 ####[facility]ORATORYCLIA [id number] [address] [place] pH (U) 5.5 [pH] Normal 5.0-8.0 [facility] Comment on above: Order Comment: Speci men Type: URINE SPECIMENOrdering Facility: [facility] Address: [address] [place] [address] Performed By: #### 2 4356-8 ####[facility]ORATORYCLIA [id number] [address] Protein (U) [Mass/Vol] Negative Normal Trace , Negative [facility] Comment on above: Order Comment: Speci men Type: URINE SPECIMENOrdering Facility: [facility] Address: [address] [place] [address] Performed By: #### 2 4356-8 ####[facility]ORATORYCLIA [id number] [address] STATES [facility] RBC LM.HPF (Urine sed) [#/Area] 6-10 /HPF Abnormal 0-3 /HPF [facility] Comment on above: Order Comment: Speci men Type: URINE SPECIMENOrdering Facility: [facility] Address: [address] [place] [address] Performed By: #### 2 4356-8 ####[facility]STERCL[facility] [id number] [address] Specific gravity (U) [Rel density] 1.021 Normal 1.005-1.030 [facility] Comment on above: Order Comment: Speci men Type: URINE SPECIMENOrdering Facility: [facility] Address: [address] [place] [address] Performed By: #### 2 4356-8 ####[facility]ORATORYCLIA [id number] [address] Urobilinogen Ql (U) Normal Normal Normal [facility] Comment on above: Order Comment: Speci men Type: URINE SPECIMENOrdering Facility: [facility] Address: [address] [place] [address] Performed By: #### 2 4356-8 ####[facility]ATORYCLIA [id number] [address] WBC LM.HPF (Urine sed) [#/Area] 0-5 /HPF Normal 0-5 /HPF [facility] Comment on above: Order Comment: Speci men Type: URINE SPECIMENOrdering Facility: [facility] Address: [address] [place] [address] Performed By: #### 2 4356-8 ####[facility]ORATORYCLIA [id number] [address] aPTT PPPon 08-17-2024 aPTT Coag (PPP) [Time] 73.8 s High 23.0-32.4 [facility] Comment on above: Order Comment: Speci men Type: BLOOD SPECIMENOrdering Facility: [facility] Address: [address] [place] [address] Performed By: #### 1 4979-9 ####[facility]ATORYCLIA [id number] [address] aPTT Coag (PPP) [Time] 47.8 s High 23.0-32.4 [facility] Comment on above: Order Comment: Speci men Type: BLOOD SPECIMENOrdering Facility: [facility] Address: [address] [place] [address] Performed By: #### 1 4979-9 ####[facility]ATORYCLIA [id number] [address] aPTT Coag (PPP) [Time] 62.9 s High 23.0-32.4 [facility] Comment on above: Order Comment: Speci men Type: BLOOD SPECIMENOrdering Facility: [facility] Address: [address] [place] [address] Performed By: #### 1 4979-9 ####[facility]ATORYCLIA [id number] [address] BRIEF OP NOTon 08-16-2024 BRIEF OP NOT Normal [facility] Basic metabolic 2000 panelon 08-16-2024 Anion gap [Moles/Vol] 11 mmol/L Normal 8-15 [facility] Comment on above: Order Comment: Speci men Type: BLOOD SPECIMENOrdering Facility: [facility] Address: [address] [place] [address] Performed By: #### 2 4331-1, 54919-1 ####[facility]ATORYCLIA [id number] [place] [address] [place] Calcium [Mass/Vol] 9.2 mg/dL Normal 8.5-10.2 [facility] Comment on above: Order Comment: Speci men Type: BLOOD SPECIMENOrdering Facility: [facility] Address: [address] [place] [address] Performed By: #### 2 4331-1, 41754-4 ####[facility]ORATORYCLIA [id number] [place] [address] [place] Chloride [Moles/Vol] 99 mmol/L Normal 98-107 [facility] Comment on above: Order Comment: Speci men Type: BLOOD SPECIMENOrdering Facility: [facility] Address: [address] [place] [address] Performed By: #### 2 4331-1, 47062-8 ####[facility]ORATORYCLIA [id number] [address] STATES OF [facility] CO2 [Moles/Vol] 20 mmol/L Low 22-30 [facility] Comment on above: Order Comment: Speci men Type: BLOOD SPECIMENOrdering Facility: [facility] Address: [address] [place] [address] Performed By: #### 2 4331-1, 84226-8 ####[facility]ATORYCLIA [id number] [place] [address] [place] Creatinine [Mass/Vol] 1.18 mg/dL Normal 0.73-1.22 [facility] Comment on above: Order Comment: Speci men Type: BLOOD SPECIMENOrdering Facility: [facility] Address: [address] [place] [address] Performed By: #### 2 4331-1, 95432-7 ####[facility]ORATORYCLIA [id number] [address] [place] Creatinine and Glomerular filtration rate.predicted panel (S/P/Bld) 67 mL/min/1.73m??? Normal >=60 [facility] Comment on above: Order Comment: Yojana riggins Type: BLOOD SPECIMENOrdering Facility: [facility] Address: [address] [place] [address] Result Comment: Apple mated Glomerular Filtration Rate (eGFR) is calculated using the 2020 CKD-EPI creatinine equation. This equation utilizes serum creatinine, sex, and age as parameters. The creatinine assay has traceable calibration to isotope dilution-mass spectrometry. Refer to KDIGO guidelines for clinical interpretation. In patients with unstable renal function, e.g. those with acute kidney injury, the eGFR may not accurately reflect actual GFR. Performed By: #### 2 4331-1, 82095-2 ####[facility]ORATORYCLIA [id number] [place] [address] [place] Glucose [Mass/Vol] 234 mg/dL High 74-99 [facility] Comment on above: Order Comment: Yojana riggins Type: BLOOD SPECIMENOrdering Facility: [facility] Address: [address] [place] [address] Result Comment: The [place] Diabetes Association (ADA) provides guidance for cutoff values for fasting glucose and random glucose. The ADA defines fasting as no caloric intake for at least 8 hours. Fasting plasma glucose results between 100 to 125 mg/dL indicate increased risk for diabetes (prediabetes).Fasting plasma glucose results greater than or equal to 126 mg/dL meet the criteria for diagnosis of diabetes. In the absence of unequivocal hyperglycemia, results should be confirmed by repeat testing. In a patient with classic symptoms of hyperglycemia or hyperglycemic crisis, random plasma glucose results greater than or equal to 200 mg/dL meet the criteria for diagnosis of diabetes.Reference: Standards of Medical Care in Diabetes 2016, [place] [employer] Association. Diabetes Care. 2016.39(Suppl 1). Performed By: #### 2 4331-1, 91660-3 ####[facility]ORATORYCLIA [id number] [place] [address] [place] Potassium [Moles/Vol] 4.5 mmol/L Normal 3.7-5.1 [facility] Comment on above: Order Comment: Yojana riggins Type: BLOOD SPECIMENOrdering Facility: [facility] Address: [address] [place] [address] Performed By: #### 2 4331-1, 88994-9 ####[facility] LABORATORYCLIA [id number] [place] [id number] [place] [facility] Sodium [Moles/Vol] 130 mmol/L Low 136-144 [facility] Comment on above: Order Comment: Speci men Type: BLOOD SPECIMENOrdering Facility: [facility] Address: [address] [place] [address] Performed By: #### 2 4331-1, 28113-9 ####[facility]ATORYCLIA [id number] [address] [place] Urea nitrogen [Mass/Vol] 27 mg/dL High 9-24 [facility] Comment on above: Order Comment: Speci men Type: BLOOD SPECIMENOrdering Facility: [facility] Address: [address] [place] [address] Performed By: #### 2 4331-1, 72877-3 ####[facility]ORATORYCLIA [id number] [address] CARD CATH DIAGNOSTICon 08-16 CARD CATH DIAGNOSTIC Normal [facility] CBC panel Auto (Bld)on 08-16 Erythrocyte distribution width (RBC) [Ratio] 13.6 % Normal 11.5-15.0 [facility] Comment on above: Order Comment: Speci men Type: BLOOD SPECIMENOrdering Facility: [facility] Address: [address] [place] [address] Performed By: #### 5 8410-2 ####[facility]ATORYCLIA [id number] [address] Hematocrit (Bld) [Volume fraction] 40.7 % Normal 39.0-51.0 [facility] Comment on above: Order Comment: Speci men Type: BLOOD SPECIMENOrdering Facility: [facility] Address: [address] [place] [address] Performed By: #### 5 8410-2 ####[facility]ORATORYCLIA [id number] [place] [address] [place] Hemoglobin (Bld) [Mass/Vol] 13.7 g/dL Normal 13.0-17.0 [facility] Comment on above: Order Comment: Speci men Type: BLOOD SPECIMENOrdering Facility: [facility] Address: [address] [place] [address] Performed By: #### 5 8410-2 ####[facility]ORATORYCLIA [id number] [address] [place] MCH (RBC) [Entitic mass] 31.1 pg Normal 26.0-34.0 [facility] Comment on above: Order Comment: Speci men Type: BLOOD SPECIMENOrdering Facility: [facility] Address: [address] [place] [address] Performed By: #### 5 8410-2 ####[facility]ORATORYCLIA [id number] [address] [place] MCHC (RBC) [Mass/Vol] 33.7 g/dL Normal 30.5-36.0 [facility] Comment on above: Order Comment: Speci men Type: BLOOD SPECIMENOrdering Facility: [facility] Address: [address] [place] [address] Performed By: #### 5 8410-2 ####[facility]ORATORYCLIA [id number] [address] [place] MCV (RBC) [Entitic vol] 92.5 fL Normal 80.0-100.0 [facility] Comment on above: Order Comment: Speci men Type: BLOOD SPECIMENOrdering Facility: [facility] Address: [address] [place] [address] Performed By: #### 5 8410-2 ####[facility]ATORYCLIA [id number] [address] [place] Nucleated RBC (Bld) [#/Vol] 10*3/uL Normal <0.01 [facility] Comment on above: Order Comment: Speci men Type: BLOOD SPECIMENOrdering Facility: [facility] Address: [address] [place] [address] Performed By: #### 5 8410-2 ####[facility]ATORYCLIA [id number] [place] [address] [place] Platelet mean volume (Bld) [Entitic vol] 9.0 fL Normal 9.0-12.7 [facility] Comment on above: Order Comment: Speci men Type: BLOOD SPECIMENOrdering Facility: [facility] Address: [address] [place] [address] Performed By: #### 5 8410-2 ####[facility]ATORYCLIA [id number] [place] [address] [place] Platelets (Bld) [#/Vol] 242 10*3/uL Normal 150-400 [facility] Comment on above: Order Comment: Speci men Type: BLOOD SPECIMENOrdering Facility: [facility] Address: [address] [place] [address] Performed By: #### 5 8410-2 ####[facility]ATORYCLIA [id number] [place] [address] [place] RBC (Bld) [#/Vol] 4.40 10*6/uL Normal 4.20-6.00 [facility] Comment on above: Order Comment: Speci men Type: BLOOD SPECIMENOrdering Facility: [facility] Address: [address] [place] [address] Performed By: #### 5 8410-2 ####[facility]ORATORYCLIA [id number] [place] [address] [place] WBC (Bld) [#/Vol] 8.41 10*3/uL Normal 3.70-11.00 [facility] Comment on above: Order Comment: Speci men Type: BLOOD SPECIMENOrdering Facility: [facility] Address: [address] [place] [address] Performed By: #### 5 8410-2 ####[facility]ORATORYCLIA [id number] [address] [place] CNPNon 08-16-2024 CNPN Normal [facility] CONSULTon 08-16-2024 CONSULT Normal [facility] ECHO WITH AGITATED SALINE CO NTRASTon 08-16-2024 ECHO WITH AGITATED SALINE CONTRAST Normal [facility] ED NOTEon 08-16-2024 ED NOTE HNO ID: [id number] Author: CHENG MENA RN Service: Emergency Medicine Author Type: Registered Nurse Type: ED Notes Filed: 08/16/2024 12:12 Note Text: Report called to BERT Izaguirre Normal [facility] ED NOTE HNO ID: [id number] Author: CHENG MENA RN Service: Emergency Medicine Author Type: Registered Nurse Type: ED Notes Filed: 08/16/2024 11:18 Note Text: Pt updated on POC Normal [facility] ED NOTE HNO ID: [id number] Author: CHENG MENA RN Service: Emergency Medicine Author Type: Registered Nurse Type: ED Notes Filed: 08/16/2024 11:11 Note Text: Cardiac paged for POC Normal [facility] ED NOTE HNO ID: [id number] Author: CHENG MENA RN Service: Emergency Medicine Author Type: Registered Nurse Type: ED Notes Filed: 08/16/2024 09:15 Note Text: Echo bedside. Normal [facility] HIGH SENSITIVITY TROPONIN To n 08-16-2024 Troponin T.cardiac High sensitivity method [Mass/Vol] 428 ng/L High <12 [facility] Comment on above: Order Comment: Speci men Type: BLOOD SPECIMENOrdering Facility: [facility] Address: [address] [place] [address] Performed By: #### H STNT ####[facility]ORATORYCLIA [id number] [address] [place] Troponin T.cardiac High sensitivity method [Mass/Vol] 415 ng/L High <12 [facility] Comment on above: Order Comment: Speci men Type: BLOOD SPECIMENOrdering Facility: [facility] Address: [address] [place] [address] Performed By: #### H STNT ####[facility]ORATORYCLIA [id number] [address] [place] Troponin T.cardiac High sensitivity method [Mass/Vol] 408 ng/L High <12 [facility] Comment on above: Order Comment: Speci men Type: BLOOD SPECIMENOrdering Facility: [facility] Address: [address] [place] [address] Performed By: #### H STNT ####[facility]ATORYCLIA [id number] [address] Troponin T.cardiac High sensitivity method [Mass/Vol] 427 ng/L High <12 [facility] Comment on above: Order Comment: Speci men Type: BLOOD SPECIMENOrdering Facility: [facility] Address: [address] [place] [address] Performed By: #### H STNT ####[facility]ORATORYCLIA [id number] [address] [place] Troponin T.cardiac High sensitivity method [Mass/Vol] 399 ng/L High <12 [facility] Comment on above: Order Comment: Speci men Type: BLOOD SPECIMENOrdering Facility: [facility] Address: [address] [place] [address] Performed By: #### H STNT ####[facility]ORATORYCLIA [id number] [address] Troponin T.cardiac High sensitivity method [Mass/Vol] 379 ng/L High <12 [facility] Comment on above: Order Comment: Speci men Type: BLOOD SPECIMENOrdering Facility: [facility] Address: [address] [place] [address] Performed By: #### H STNT ####[facility]ORATORYCLIA [id number] [address] [place] Lipid 1996 panelon 5 Cholesterol [Mass/Vol] 128 mg/dL Normal <200 [facility] Comment on above: Order Comment: Speci men Type: BLOOD SPECIMENOrdering Facility: [facility] Address: [address] [place] [address] Result Comment: <200 mg/dL, Desirable 200-239 mg/dL, Borderline high>239 mg/dL, High Performed By: #### 2 4331-1, 93055-3 ####[facility]ORATORYCLIA [id number] [place] [address] [facility] Cholesterol in HDL [Mass/Vol] 29 mg/dL Low >39 [facility] Comment on above: Order Comment: Speci men Type: BLOOD SPECIMENOrdering Facility: [facility] Address: [address] [place] [address] Result Comment: 40-5 9 mg/dL, Acceptable>59 mg/dL, High: Negative risk factor for coronary heart disease<40 mg/dL, Low: Positive risk factor for coronary heart disease Performed By: #### 2 4331-1, 65472-7 ####[facility]ATORYCLIA [id number] [address] Cholesterol in LDL [Mass/Vol] 82 mg/dL Normal <100 [facility] Comment on above: Order Comment: Speci men Type: BLOOD SPECIMENOrdering Facility: [facility] Address: [address] [place] [address] Result Comment: <100 mg/dL, Optimal 100-129 mg/dL, Near optimal/above optimal 130-159 mg/dL, Borderline high 160-189 mg/dL, High>189 mg/dL, Very highSecondary prevention optimal LDL Cholesterol levels are recommended to be <70 mg/dLLDL cholesterol is calculated using the Berger-NIH equation. Performed By: #### 2 4331-1, 20008-2 ####[facility]ATORYCLIA [id number] [address] Cholesterol in LDL/Cholesterol in HDL [Mass ratio] 2.83 {ratio} High <2.54 [facility] Comment on above: Order Comment: Speci men Type: BLOOD SPECIMENOrdering Facility: [facility] Address: [address] [place] [address] Result Comment: Brook proctor:1. National Cholesterol Education Program ATP III Guideline At-A-Glance Quick Desk Reference: National Heart, Lung, and Blood Adams. National Institutes of Health. 2001: NIH Publication No. 01-3305.2. An International Atherosclerosis Society position paper: global recommendations for the management of dyslipidemia: executive summary, Atherosclerosis. 2014: 232(2):410-413. Performed By: #### 2 4331-1, 09804-3 ####[facility]ATORYCLIA [id number] [address] Cholesterol in VLDL [Mass/Vol] 13 mg/dL Normal <30 [facility] Comment on above: Order Comment: Speci men Type: BLOOD SPECIMENOrdering Facility: [facility] Address: [address] [place] [address] Performed By: #### 2 4331-1, 56806-9 ####[facility] [facility]ATORYCLIA [id number] [address] Cholesterol non HDL [Mass/Vol] 99 mg/dL Normal <130 [facility] Comment on above: Order Comment: Speci men Type: BLOOD SPECIMENOrdering Facility: [facility] Address: [address] [place] [address] Result Comment: <130 mg/dL, Optimal 130-159 mg/dL, Near optimal/above optimal 160-189 mg/dL, Borderline high 190-219 mg/dL, High>219 mg/dL, Very highSecondary prevention optimal non HDL Cholesterol levels are recommended to be <100 mg/dL Performed By: #### 2 4331-1, 46466-4 ####[facility] LABORATORYCLIA [id number] [address] Cholesterol.total/Choles terol in HDL [Mass ratio] 4.41 {ratio} Normal <5.10 [facility] Comment on above: Order Comment: Speci men Type: BLOOD SPECIMENOrdering Facility: [facility] Address: [address] [place] [address] Performed By: #### 2 4331-1, 36479-4 ####[facility] LABORATORYCLIA [id number] [address] FASTING TIME 5 hrs Normal [facility] Comment on above: Order Comment: Speci men Type: BLOOD SPECIMENOrdering Facility: [facility] Address: [address] [place] [address] Performed By: #### 2 4331-1, 46761-0 ####[facility] LABORATORYCLIA [id number] [address] STATES OF [facility] Triglyceride [Mass/Vol] 84 mg/dL Normal <150 A [facility] Comment on above: Order Comment: Speci men Type: BLOOD SPECIMENOrdering Facility: [facility] Address: [address] [place] [address] Result Comment: <150 mg/dL, Normal 150-199 mg/dL, Borderline high 200-499 mg/dL, High>499 mg/dL, Very high Performed By: #### 2 4331-1, 91448-2 ####[facility] LABORATORYCLIA [id number] [address] STAPHYLOCOCCUS AUREUS AND MR SA SCREEN, PCR, NASALon 08-16-2024 S. aureus and MRSA panel MADELYN+probe (Nose) Methicillin-SUSCEPTIB LE Staphylococcus aureus Detected Abnormal Not Detected [facility] Comment on above: Order Comment: Speci men Type: SWABOrdering Facility: [facility] Address: [address] [place] [address] Performed By: #### S APCR ####[facility] LABORATORYCLIA [id number] [address] [place] TSH SerPl-aCncon 08-16-2024 TSH Qn 2.960 m[IU]/L Normal 0.270-4.200 [facility] Comment on above: Order Comment: Speci men Type: BLOOD SPECIMENOrdering Facility: [facility] Address: [address] [place] [address] Performed By: #### 3 016-3 ####[facility] LABORATORYCLIA [id number] [address] [place] aPTT PPPon 08-16-2024 aPTT Coag (PPP) [Time] 39.3 s High 23.0-32.4 [facility] Comment on above: Order Comment: Speci men Type: BLOOD SPECIMENOrdering Facility: [facility] Address: [address] [place] [address] Performed By: #### 1 4979-9 ####[facility] LABORATORYCLIA [id number] [address] aPTT Coag (PPP) [Time] 43.8 s High 23.0-32.4 [facility] Comment on above: Order Comment: Speci men Type: BLOOD SPECIMENOrdering Facility: [facility] Address: [address] [place] [address] Performed By: #### 1 4979-9 ####[facility] LAB[facility]ATORYCLIA [id number] [address] aPTT Coag (PPP) [Time] 35.0 s High 23.0-32.4 [facility] Comment on above: Order Comment: Speci men Type: BLOOD SPECIMENOrdering Facility: [facility] Address: [address] [place] [address] Performed By: #### 1 4979-9 ####[facility] LABORATORYCLIA [id number] [address] OF [facility] ALLIED HEALTHon 08-15-2024 ALLIED HEALTH Normal [facility] CBC W Auto Differential pane l (Bld)on 08-15-2024 Basophils (Bld) [#/Vol] 0.04 10*3/uL Normal <0.11 [facility] Comment on above: Order Comment: Speci men Type: BLOOD SPECIMENOrdering Facility: [facility] Address: [address] [place] [address] Performed By: #### 5 7021-8 ####[facility] LABORATORYCLIA [id number] [address] OF [place]#### 16363-7 ####[facility] LABCLIA [id number] [address] Basophils/100 WBC (Bld) 0.3 % Normal A [facility] Comment on above: Order Comment: Speci men Type: BLOOD SPECIMENOrdering Facility: [facility] Address: [address] [place], [place] [address] Performed By: #### 5 7021-8 ####[facility] LABORATORYCLIA [id number] [place] [address] [facility] [place]#### 15244-6 ####[facility] LABCLIA [id number] [place] [address] [place] Differential cell count method Nom (Bld) Auto Normal [facility] Comment on above: Order Comment: Speci men Type: BLOOD SPECIMENOrdering Facility: [facility] Address: [address] [place] [address] Performed By: #### 5 7021-8 ####[facility] LABORATORYCLIA [id number] [address]#### 23019-0 ####[facility] LABCLIA [id number] [place] [address] [place] Eosinophils (Bld) [#/Vol] 0.23 10*3/uL Normal <0.46 [facility] Comment on above: Order Comment: Speci men Type: BLOOD SPECIMENOrdering Facility: [facility] Address: [address] [place] [address] Performed By: #### 5 7021-8 ####[facility] LABORATORYCLIA [id number] [address] [place]#### 00838-0 ####[facility] LABCLIA [id number] [address] [place] Eosinophils/100 WBC (Bld) 1.9 % Normal [facility] Comment on above: Order Comment: Speci men Type: BLOOD SPECIMENOrdering Facility: [facility] Address: [address] [place] [address] Performed By: #### 5 7021-8 ####[facility]ORATORYCLIA [id number] [place] [address] [place]#### 15832-9 ####[facility] LABCLIA [id number] [place] [address] [place] Erythrocyte distribution width (RBC) [Ratio] 13.8 % Normal 11.5-15.0 [facility] Comment on above: Order Comment: Speci men Type: BLOOD SPECIMENOrdering Facility: [facility] Address: [address] [place] [address] Performed By: #### 5 7021-8 ####[facility] LABORATORYCLIA [id number] [address] [place]#### 25778-3 ####[facility] LABCLIA [id number] [place] [address] [place] Hematocrit (Bld) [Volume fraction] 43.4 % Normal 39.0-51.0 [facility] Comment on above: Order Comment: Speci men Type: BLOOD SPECIMENOrdering Facility: [facility] Address: [address] [place] [address] Performed By: #### 5 7021-8 ####[facility] LABORATORYCLIA [id number] [address] STATES [facility]#### 32728-7 ####[facility] LABCLIA [id number] [address] [place] Hemoglobin (Bld) [Mass/Vol] 14.8 g/dL Normal 13.0-17.0 [facility] Comment on above: Order Comment: Speci men Type: BLOOD SPECIMENOrdering Facility: [facility] Address: [address] [place] [address] Performed By: #### 5 7021-8 ####[facility] LABORATORYCLIA [id number] [address] [place]#### 12552-3 ####[facility] LABCLIA [id number] [place] [address] [place] Immature granulocytes (Bld) [#/Vol] 0.07 10*3/uL Normal <0.10 [facility] Comment on above: Order Comment: Speci men Type: BLOOD SPECIMENOrdering Facility: [facility] Address: [address] [place] [address] Performed By: #### 5 7021-8 ####[facility] LABORATORYCLIA [id number] [address]#### 92583-1 ####[facility] LABCLIA [id number] [address] [place] Immature granulocytes/100 WBC (Bld) 0.6 % Normal [facility] Comment on above: Order Comment: Speci men Type: BLOOD SPECIMENOrdering Facility: [facility] Address: [address] [place] [address] Performed By: #### 5 7021-8 ####[facility] LABORATORYCLIA [id number] [address]#### 53177-6 ####[facility] LABCLIA [id number] [place] [address] [place] Lymphocytes (Bld) [#/Vol] 1.93 10*3/uL Normal 1.00-4.00 [facility] Comment on above: Order Comment: Speci men Type: BLOOD SPECIMENOrdering Facility: [facility] Address: [address] [place] [address] Performed By: #### 5 7021-8 ####[facility]ORATORYCLIA [id number] [address] [place]#### 72744-9 ####[facility] LABCLIA [id number] [address] [place] Lymphocytes/100 WBC (Bld) 16.3 % Normal [facility] Comment on above: Order Comment: Speci men Type: BLOOD SPECIMENOrdering Facility: [facility] Address: [address] [place], [place] [address] Performed By: #### 5 7021-8 ####[facility]ORATORYCLIA [id number] [address]#### 03364-5 ####[facility] LABCLIA [id number] [address] [place] MCH (RBC) [Entitic mass] 30.8 pg Normal 26.0-34.0 [facility] Comment on above: Order Comment: Speci men Type: BLOOD SPECIMENOrdering Facility: [facility] Address: [address] [place] [address] Performed By: #### 5 7021-8 ####[facility]ATORYCLIA [id number] [address]#### 90292-1 ####[facility] LABCLIA [id number] [address] [place] MCHC (RBC) [Mass/Vol] 34.1 g/dL Normal 30.5-36.0 [facility] Comment on above: Order Comment: Speci men Type: BLOOD SPECIMENOrdering Facility: [facility] Address: [address] [place] [address] Performed By: #### 5 7021-8 ####[facility]ORATORYCLIA [id number] [address] [place]#### 63344-0 ####[facility] LABCLIA [id number] [address] [place] MCV (RBC) [Entitic vol] 90.2 fL Normal 80.0-100.0 [facility] Comment on above: Order Comment: Speci men Type: BLOOD SPECIMENOrdering Facility: [facility] Address: [address] [place] [address] Performed By: #### 5 7021-8 ####[facility]ORATORYCLIA [id number] [address] OF [place]#### 38636-1 ####[facility] LABCLIA [id number] [place] [address] [place] Monocytes (Bld) [#/Vol] 0.87 10*3/uL High <0.87 [facility] Comment on above: Order Comment: Speci men Type: BLOOD SPECIMENOrdering Facility: [facility] Address: [address] [place] [address] Performed By: #### 5 7021-8 ####[facility]ATORYCLIA [id number] [address] [place]#### 87241-1 ####[facility] LABCLIA [id number] [address] [place] Monocytes/100 WBC (Bld) 7.3 % Normal A [facility] Comment on above: Order Comment: Speci men Type: BLOOD SPECIMENOrdering Facility: [facility] Address: [address] [place] [address] Performed By: #### 5 7021-8 ####[facility]ORATORYCLIA [id number] [address] OF [place]#### 10380-3 ####[facility] LABCLIA [id number] [place] [address] [place] Neutrophils (Bld) [#/Vol] 8.73 10*3/uL High 1.45-7.50 [facility] Comment on above: Order Comment: Speci men Type: BLOOD SPECIMENOrdering Facility: [facility] Address: [address] [place] [address] Performed By: #### 5 7021-8 ####[facility] LABORATORYCLIA [id number] [address] OF [place]#### 92513-9 ####[facility] LABCLIA [id number] [address] [place] Neutrophils/100 WBC (Bld) 73.6 % Normal [facility] Comment on above: Order Comment: Speci men Type: BLOOD SPECIMENOrdering Facility: [facility] Address: [address] [place] [address] Performed By: #### 5 7021-8 ####[facility]ORATORYCLIA [id number] [address]#### 22231-8 ####[facility] LABCLIA [id number] [place] [address] [place] Nucleated RBC (Bld) [#/Vol] 10*3/uL Normal <0.01 [facility] Comment on above: Order Comment: Speci men Type: BLOOD SPECIMENOrdering Facility: [facility] Address: [address] [place] [address] Performed By: #### 5 7021-8 ####[facility]ATORYCLIA [id number] [address] [place]#### 93372-6 ####[facility] LABCLIA [id number] [place] [address] [place] Nucleated RBC/100 WBC (Bld) [Ratio] 0.0 /100 WBC Normal [facility] Comment on above: Order Comment: Speci men Type: BLOOD SPECIMENOrdering Facility: [facility] Address: [address] [place] [address] Performed By: #### 5 7021-8 ####[facility]ORATORYCLIA [id number] [address] OF [place]#### 19999-8 ####[facility] LABCLIA [id number] [place] [address] [place] Platelet mean volume (Bld) [Entitic vol] 9.1 fL Normal 9.0-12.7 [facility] Comment on above: Order Comment: Speci men Type: BLOOD SPECIMENOrdering Facility: [facility] Address: [address] [place] [address] Performed By: #### 5 7021-8 ####[facility] LABORATORYCLIA [id number] [address]#### 07983-3 ####[facility] LABCLIA [id number] [place] [id number] [place] Platelets (Bld) [#/Vol] 242 10*3/uL Normal 150-400 [facility] Comment on above: Order Comment: Speci men Type: BLOOD SPECIMENOrdering Facility: [facility] Address: [address] [place] [address] Performed By: #### 5 7021-8 ####[facility]ATORYCLIA [id number] [address] [place]#### 03132-9 ####[facility] LABCLIA [id number] [place] [address] [place] RBC (Bld) [#/Vol] 4.81 10*6/uL Normal 4.20-6.00 [facility] Comment on above: Order Comment: Speci men Type: BLOOD SPECIMENOrdering Facility: [facility] Address: [address] [place] [address] Performed By: #### 5 7021-8 ####[facility]ORATORYCLIA [id number] [address] [place]#### 50799-7 ####[facility] LABCLIA [id number] [address] [address] [place] WBC (Bld) [#/Vol] 11.87 10*3/uL High 3.70-11.00 [facility] Comment on above: Order Comment: Speci men Type: BLOOD SPECIMENOrdering Facility: [facility] Address: [facility] [place] [address] Performed By: #### 5 7021-8 ####[facility] LABORATORYCLIA [id number] [place] [address] [place]#### 48945-9 ####[facility] LABCLIA [id number] [address] [address] [place] CONFIRM BLOOD TYPEon 025 ABO O Normal [facility] Comment on above: Order Comment: Speci men Type: BLOOD SPECIMENOrdering Facility: [facility] Address: [address] [place] [address] Performed By: #### C ONABO ####[facility] BLOOD BANKCLIA [id number] [place] [address] [place] Rh Nom (Bld) Positive Normal [facility] Comment on above: Order Comment: Speci men Type: BLOOD SPECIMENOrdering Facility: [facility] Address: [address] [place] [address] Performed By: #### C ONABO ####[facility] BLOOD BANKCLIA [id number] [place] [address] [place] BRAIN WO IVCONon 08-16-19 CT BRAIN WO IVCON Normal [facility] CT CERVICAL SPINE WO IVCONon 08-15-2024 CT CERVICAL SPINE WO IVCON Normal [facility] CTA CHEST (NON GATED) W IVCO N PEon 08-15-2024 CTA CHEST (NON GATED) W IVCON PE Normal [facility] Comprehensive metabolic 2000 panelon 08-15-2024 Albumin [Mass/Vol] 3.7 g/dL Low 3.9-4.9 [facility] Comment on above: Order Comment: Speci men Type: BLOOD SPECIMENOrdering Facility: [facility] Address: [address] [place] [address] Performed By: #### 1 9123-9, 39985-2, 28063-9 ####[facility] LABORATORYCLIA [id number] [place] [address] [place] ALP [Catalytic activity/Vol] 68 U/L Normal 38-113 [facility] Comment on above: Order Comment: Speci men Type: BLOOD SPECIMENOrdering Facility: [facility] Address: [address] [place] [address] Performed By: #### 1 9123-9, 31183-5, 40283-3 ####[facility] LABORATORYCLIA [id number] [address] [place] ALT With P-5'-P [Catalytic activity/Vol] 31 U/L Normal 10-54 [facility] Comment on above: Order Comment: Speci men Type: BLOOD SPECIMENOrdering Facility: [facility] Address: [address] [place] [address] Performed By: #### 1 9123-9, 00549-9, 30704-4 ####[facility] LABORATORYCLIA [id number] [address] STATES OF [facility] Anion gap [Moles/Vol] 15 mmol/L Normal 8-15 [facility] Comment on above: Order Comment: Speci men Type: BLOOD SPECIMENOrdering Facility: [facility] Address: [address] [place] [address] Performed By: #### 1 9123-9, 82947-5, 84417-9 ####[facility] LABORATORYCLIA [id number] [address] STATES OF [facility] AST With P-5'-P [Catalytic activity/Vol] Normal [facility] Comment on above: Order Comment: Speci men Type: BLOOD SPECIMENOrdering Facility: [facility] Address: [address] [place] [address] Result Comment: Unab le to assay due to interference from hemolysis. Suggest reorder as clinically indicated. Performed By: #### 1 9123-9, 40395-5, 71076-5 ####[facility] LABORATORYCLIA [id number] [address] [place] Bilirubin [Mass/Vol] 0.4 mg/dL Normal 0.2-1.3 [facility] Comment on above: Order Comment: Speci men Type: BLOOD SPECIMENOrdering Facility: [facility] Address: [address] [place] [address] Performed By: #### 1 9123-9, 73687-1, 43009-7 ####[facility] LABORATORYCLIA [id number] [place] [address] [place] Calcium [Mass/Vol] 9.1 mg/dL Normal 8.5-10.2 [facility] Comment on above: Order Comment: Speci men Type: BLOOD SPECIMENOrdering Facility: [facility] Address: [address] [place] [address] Performed By: #### 1 9123-9, 56787-9, 87198-9 ####[facility] LABORATORYCLIA [id number] [place] [address] [place] Chloride [Moles/Vol] 99 mmol/L Normal 98-107 [facility] Comment on above: Order Comment: Speci men Type: BLOOD SPECIMENOrdering Facility: [facility] Address: [address] [place] [address] Performed By: #### 1 9123-9, 70475-5, 46307-4 ####[facility] LABORATORYCLIA [id number] [place] [address] [place] CO2 [Moles/Vol] 19 mmol/L Low 22-30 [facility] Comment on above: Order Comment: Speci men Type: BLOOD SPECIMENOrdering Facility: [facility] Address: [facility] [place] [address] Performed By: #### 1 9123-9, 71623-9, 20502-4 ####[facility] LABORATORYCLIA [id number] [place] [address] [place] Creatinine [Mass/Vol] 1.23 mg/dL High 0.73-1.22 [facility] Comment on above: Order Comment: Speci men Type: BLOOD SPECIMENOrdering Facility: [facility] Address: [address] [place] [address] Performed By: #### 1 9123-9, 79282-2, 53991-8 ####[facility]ORATORYCLIA [id number] [place] [address] [place] Creatinine and Glomerular filtration rate.predicted panel (S/P/Bld) 64 mL/min/1.73m??? Normal >=60 [facility] Comment on above: Order Comment: Yojana riggins Type: BLOOD SPECIMENOrdering Facility: [facility] Address: [address] [place] [address] Result Comment: Apple mated Glomerular Filtration Rate (eGFR) is calculated using the 2020 CKD-EPI creatinine equation. This equation utilizes serum creatinine, sex, and age as parameters. The creatinine assay has traceable calibration to isotope dilution-mass spectrometry. Refer to KDIGO guidelines for clinical interpretation. In patients with unstable renal function, e.g. those with acute kidney injury, the eGFR may not accurately reflect actual GFR. Performed By: #### 1 9123-9, 29713-7, 90884-3 ####[facility] LABORATORYCLIA [id number] [place] [address] [place] Glucose [Mass/Vol] 241 mg/dL High 74-99 [facility] Comment on above: Order Comment: Yojana riggins Type: BLOOD SPECIMENOrdering Facility: [facility] Address: [address] [place] [address] Result Comment: The [place] Diabetes [employer] (ADA) provides guidance for cutoff values for fasting glucose and random glucose. The ADA defines fasting as no caloric intake for at least 8 hours. Fasting plasma glucose results between 100 to 125 mg/dL indicate increased risk for diabetes (prediabetes).Fasting plasma glucose results greater than or equal to 126 mg/dL meet the criteria for diagnosis of diabetes. In the absence of unequivocal hyperglycemia, results should be confirmed by repeat testing. In a patient with classic symptoms of hyperglycemia or hyperglycemic crisis, random plasma glucose results greater than or equal to 200 mg/dL meet the criteria for diagnosis of diabetes.Reference: Standards of Medical Care in Diabetes 2016, [place] [employer]. Diabetes Care. 2016.39(Suppl 1). Performed By: #### 1 9123-9, 52778-6, 67977-0 ####[facility] LABORATORYCLIA [id number] [place] [id number] [place] Potassium [Moles/Vol] 4.5 mmol/L Normal 3.7-5.1 [facility] Comment on above: Order Comment: Speci men Type: BLOOD SPECIMENOrdering Facility: [facility] Address: [address] [place] [address] Performed By: #### 1 9123-9, 15431-5, 98412-6 ####[facility] LABORATORYCLIA [id number] [address] STATES OF [facility] Protein [Mass/Vol] 7.4 g/dL Normal 6.3-8.0 [facility] Comment on above: Order Comment: Speci men Type: BLOOD SPECIMENOrdering Facility: [facility] Address: [address] [place] [address] Performed By: #### 1 9123-9, 38076-9, 50763-8 ####[facility] LABORATORYCLIA [id number] [address] STATES OF [facility] Sodium [Moles/Vol] 133 mmol/L Low 136-144 [facility] Comment on above: Order Comment: Speci men Type: BLOOD SPECIMENOrdering Facility: [facility] Address: [address] [place] [address] Performed By: #### 1 9123-9, 37291-1, 23532-5 ####[facility] LABORATORYCLIA [id number] [address] [place] Urea nitrogen [Mass/Vol] 29 mg/dL High 9-24 [facility] Comment on above: Order Comment: Speci men Type: BLOOD SPECIMENOrdering Facility: [facility] Address: [address] [place] [address] Performed By: #### 1 9123-9, 95085-6, 86586-2 ####[facility] LABORATORYCLIA [id number] [address] [place] ECG COMPLETEon 08-15-2024 ECG COMPLETE Normal [facility] ED NOTEon 08-15-2024 ED NOTE HNO ID: [id number] Author: REKHA FLORES RN Service: ? Author Type: Registered Nurse Type: ED Notes Filed: 08/15/2024 23:47 Note Text: Pt informed of NPO after midnight order, pt given food and drink at this time [facility] ED NOTE HNO ID: [id number] Author: REKHA FLORES RN Service: ? Author Type: Registered Nurse Type: ED Notes Filed: 08/15/2024 22:30 Note Text: CVICU attending and resident at bedside [facility] ED NOTE HNO ID: [id number] Author: REKHA FLORES RN Service: ? Author Type: Registered Nurse Type: ED Notes Filed: 08/15/2024 21:37 Note Text: ED resident Dr. Morillo spoke to CVICU resident that returned the page. [facility] ED NOTE [facility] ED NOTE HNO ID: [id number] Author: REKHA FLORES RN Service: ? Author Type: Registered Nurse Type: ED Notes Filed: 08/15/2024 20:41 Note Text: Physician stated to wait until CT brain results in order to start heparin gtt [facility] ED NOTE HNO ID: [id number] Author: REKHA FLORES RN Service: ? Author Type: Registered Nurse Type: ED Notes Filed: 08/15/2024 20:05 Note Text: CT notified [facility] ED NOTE HNO ID: [id number] Author: REKHA FLORES RN Service: ? 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 Author Type: Registered Nurse Type: ED Notes Filed: 08/15/2024 19:30 Note Text: Instructional Support Technician at bedside, Dr. Tomas [facility] ED NOTE HNO ID: [id number] Author: REKHA FLORES RN Service: ? Author Type: Registered Nurse Type: ED Notes Filed: 08/15/2024 19:12 Note Text: Cardiology resident at bedside [facility] ED NOTE [facility] ED NOTE HNO ID: [id number] Author: COLIN HERBERT RN Service: ? Author Type: Registered Nurse Type: ED Notes Filed: 08/15/2024 19:08 Note Text: Bed: 08-ED Expected date: Expected time: Means of arrival: Comments: STEMI? Normal [facility] ED PROV NOTEon 08-15-2024 ED PROV NOTE Normal [facility] ED PROV NOTE Normal [facility] HIGH SENSITIVITY TROPONIN T (INITIAL)on 08-15-2024 Troponin T.cardiac High sensitivity method [Mass/Vol] 433 ng/L High <12 [facility] Comment on above: Order Comment: Speci men Type: BLOOD SPECIMENOrdering Facility: [facility] Address: [address] [place] [address] Performed By: #### L [id number] ####[facility] LABORATORYCLIA [id number] [address] HIGH SENSITIVITY TROPONIN T (SECOND)on 08-15-2024 Troponin T.cardiac High sensitivity method [Mass/Vol] 367 ng/L High <12 [facility] Comment on above: Order Comment: Yojana riggins Type: BLOOD SPECIMENOrdering Facility: [facility] Address: [address] [place] [address] Performed By: #### L [id number] ####[facility] LABORATORYCLIA [id number] [address] HIGH SENSITIVITY TROPONIN T (THIRD) 3 HRS AFTER INITIALon 08-15-2024 Troponin T.cardiac High sensitivity method [Mass/Vol] 387 ng/L High <12 [facility] Comment on above: Order Comment: Speci men Type: BLOOD SPECIMENOrdering Facility: [facility] Address: [address] [place] [address] Performed By: #### L [id number] ####[facility] LABORATORYCLIA [id number] [address] [place] HISTORY PHYSICALon HISTORY PHYSICAL [facility] HbA1c (Bld)on 08-15-2024 Average glucose Estimated from glycated hemoglobin (Bld) [Mass/Vol] 177 mg/dL Normal [facility] Comment on above: Order Comment: Yojana riggins Type: BLOOD SPECIMENOrdering Facility: [facility] Address: [address] [place] [address] Result Comment: eAG: (Estimated average glucose) is a calculated value from HgbA1c and is hr representative of the average blood glucose level in the last 2-3 month period. Performed By: #### 5 7021-8 ####[facility] LABORATORYCLIA [id number] [address]#### [address]-0 ####[facility] LABIA [id number] [address] [place] HbA1c (Bld) [Mass fraction] 7.8 % High 4.3-5.6 [facility] Comment on above: Order Comment: Yojana riggins Type: BLOOD SPECIMENOrdering Facility: [facility] Address: [address] [place] [address] Result Comment: Amer [place] Diabetes Association guidelines indicate that patients with HgbA1c in the range 5.7-6.4% are at increased risk for development of diabetes, and intervention by lifestyle modification may be beneficial. HgbA1c greater or equal to 6.5% is considered diagnostic of diabetes. Performed By: #### 5 7021-8 ####[facility] LABORATORYCLIA [id number] [address] [place]#### [address]-0 ####[facility] LABIA [id number] [address] [place] Magnesium SerPl-mCncon 08-15 Magnesium [Mass/Vol] 2.2 mg/dL Normal 1.7-2.3 [facility] Comment on above: Order Comment: Yojana riggins Type: BLOOD SPECIMENOrdering Facility: [facility] Address: [address] [place] [address] Performed By: #### 1 9123-9, 49837-3, 86128-0 ####[facility]CLIA [id number] [place] [address] [facility] NT-proBNP [facility] 08-15 Natriuretic peptide.B prohormone N-Terminal [Mass/Vol] 3787 pg/mL High <125 [facility] Comment on above: Order Comment: Speci gilson Type: BLOOD SPECIMENOrdering Facility: [facility] Address: [address] [place] [address] Performed By: #### 1 9123-9, 61078-8, 06976-6 ####[facility]CLIA [id number] [place] [id number] [facility] PT panel Coag (PPP)on 2024 INR Coag (PPP) [Relative time] 1.1 {INR} Normal 0.9-1.3 [facility] Comment on above: Order Comment: Speci gilson Type: BLOOD SPECIMENOrdering Facility: [facility] Address: [address] [place] [address] Result Comment: Trish min K Antagonist (VKA) Therapeutic Range: INR 2 to 3 (Target INR of 2.5)Note: For patients treated with VKA drugs, such as warfarin, the [place] [employer] 2012 Guideline recommends a therapeutic INR range of 2 to 3 (target INR of 2.5). This recommendation includes high-risk patients with antiphospholipid syndrome with previous arterial or venous thromboembolism, current-generation mechanical or bioprosthetic aortic heart valve replacement.Note: Patients with mechanical aortic valve replacement and additional risk factors for thromboembolic events (atrial fibrillation, previous thromboembolism, LV dysfunction, hypercoagulable conditions) or an older generation mechanical AVR (i.e., ball in-Cage) or any mechanical MVR should have a INR therapeutic range of 2.5 to 3.5 (target INR of 3).Marti GH, et al. Chest 2012, 141:7S-47SNishmarleny RA, et al. [facility] 2017, 70: 252-289 Performed By: #### 3 4528-0, 71732-4 ####[facility] LABORATORYCLIA [id number] [place] [id number] [place] PT Coag (PPP) [Time] 11.6 s Normal 9.7-13.0 [facility] Comment on above: Order Comment: Speci men Type: BLOOD SPECIMENOrdering Facility: [facility] Address: [address] [place] [address] Performed By: #### 3 4528-0, 81735-8 ####[facility] LABORATORYCLIA [id number] [address] TYPE + SCREENon 08-15-2024 ABO O Normal [facility] Comment on above: Order Comment: Speci men Type: BLOOD SPECIMENOrdering Facility: [facility] Address: [address] [place] [address] Performed By: #### T SCR ####[facility] BLOOD BANKCLIA [id number] [address] Rh Nom (Bld) Positive Normal [facility] Comment on above: Order Comment: Speci men Type: BLOOD SPECIMENOrdering Facility: [facility] Address: [address] [place] [address] Performed By: #### T SCR ####[facility] BLOOD BANKCLIA [id number] [address] TYPE AND SCREEN EXPIRATION 08/18/2024 23:59 Normal [facility] Comment on above: Order Comment: Speci men Type: BLOOD SPECIMENOrdering Facility: [facility] Address: [address] [place] [address] Performed By: #### T SCR ####[facility] BLOOD BANKCLIA [id number] [address] [place] XR PELVIS 1V APon 08-15-2024 XR PELVIS 1V AP Normal [facility] aPTT PPPon 08-15-2024 aPTT Coag (PPP) [Time] 27.4 s Normal 23.0-32.4 [facility] Comment on above: Order Comment: Speci men Type: BLOOD SPECIMENOrdering Facility: [facility] Address: [address] [place] [address] Performed By: #### 3 4528-0, 82831-5 ####[facility] LABORATORYCLIA [id number] [place] [address] [facility] Internal Medicine Office Vis ito 08-09-2024 Internal Medicine Office Visit [facility] [address] [place] [address] OFFICE VISIT Date of Service: 08/09/24 MR#: [id number] Acct: [id number] Name: ARIS ATKINS Rep #: [id number] : 1955 Provider: AMADO Serra Age/Sex: 69/M Location: [facility] Status: Signed Intake Vital Signs 07/10/24 10:21 08/09/24 08:07 Height 5 ft 10 in 5 ft 10 in Weight: 219 lb 6 oz 214 lb 8 oz BMI 31.4 30.7 BP 124/78 H 132/80 H Blood Pressure Location Rt brachial Rt brachial Position Sitting Sitting Respiration 16 16 Pulse 76 73 Pulse Source Monitor Monitor Temp 95.1 F L 96.2 F L Temp Source Temporal Temporal Pulse Oximetry (%) 95 96 Oxygen Delivery Method room air room air Intake Visit Reasons: fu on symptoms Bilingual Receptionist Required: No Accompanied by: Self Is patient in pain?: No Allergies No Known Allergies Allergy (Unverified 08/09/24 07:48) Medications ???Medication ???Instructions ???Recorded ???Confirmed ???Type Adren-all PO 1XD 06/23/23 08/09/24 History ascorbic acid (vitamin C) 1,000 mg 1 g PO DAILY 06/23/23 08/09/24 H istory capsule iodoral 12.5 mg PO 1XD 06/23/23 08/09/24 H istory optiprostat PO 1XD 06/23/23 08/09/24 History selenium 200 mcg capsule 200 mcg PO DAILY 06/23/23 08/09/24 History test boost max PO 1XD 06/23/23 08/09/24 History cholecalciferol (vitamin D3) 125 125 mcg PO .three times weekly 08/09/24 History mcg (5,000 unit) capsule empagliflozin 25 mg tablet 25 mg PO QAM #90 tabs 05/14/2406/04 Rx glipizide 5 mg tablet 5 mg PO BID #180 tabs 05/31/2406/04 Rx thyroid (pork) 120 mg tablet (DYE COLORIST DYER 120 mg PO DAILY #90 tabs 06/13/24 08/09/24 Rx Thyroid) atorvastatin 20 mg tablet 20 mg PO QDAY #30 tabs 08/09/24 Rx Have you fallen in the past year?: No PFSH Medical History Amputation of ring finger Hernia, umbilical Hernia, inguinal Gout Diabetes Surgical History History of hernia repair H/O thyroidectomy (Unknown) Family History Father Colon cancer Diabetes Hypertension Thyroid disorder Social History adopted: No household members: other details: richard housing: house number of children: 1 current occupational status: retired pets and animals: Yes (dogs x 2 ) pets and animals: dog(s) history of recent travel: No Smoking Status: Never smoker second hand exposure: No alcohol intake: current alcohol intake frequency: other Previous attempts at quittin details: once or twice a month caffeine: Yes (minimal) what type of physical activity do you participate in: walking frequency: daily duration: 30-45 minutes/day seatbelt use: always do you feel safe at home: Yes HPI HPI Details: ARIS ATKINS, is a 69 M who presents to the office today for f/u after an episode at [employer] (patient had called in and we requested he make an appointment today). He states that morning he had gone to [employer] and states that he had not eaten for probably 12-13 hours and he states that during y[employer]. HE states that he went to stand up and as soon as he stood up his vision was swimming. He states that he ended up going to the restroom and had some dry heaves. He also states that he was even clammy in the bathroom. He states that the episode lasted a few minutes. He ended up lying down and then 1-2 hours later he got up and ate (had already been roughly 18 hours since he had eaten). Patient denied having any chest pains or pressures, shortness of breath, arm pain, neck pain or really any pains at all. He states that he is sort of had some minor episodes that were similar but not really like this 1. Patient is taking his ASA daily He admits that he has not been doing good again with his eating (states that he just decided that enough is enough). he states that he has this week done a much better job and has even noticed a little bit of weight loss already. Since April he actually has lost 14 pounds which is good. ROS Const Constitutional: No body ache, excessive sweating, fatigue, fever(s), frequent falls, headache(s), snoring, weakness, weight change, sleep problems or change in appetite Eyes Eyes: No blurry vision, change in vision, eye pain or Light sensitivity ENT ENT: No abnormal hearing, ear or mastoid pain, tinnitus, nasal congestion, headache(s), neck pain or sore throat Resp Respiratory: No cough, shortness of breath, snoring or wheezing Cardio Cardiology: No chest pain at rest, chest pain with exertion, excessive sweating, shortness of breath, dyspnea on exertion, lightheadedness, orthopnea or palpitations Gastro GI: N (more content not included)... Normal [facility] Anion gap in Serum or Plasma Ordered By: Mario Bellamy on 07-12-2024 Anion gap [Moles/Vol] 12 mmol/L 5-15 [facility] BUN/creatinine ratioOrdered By: Mario Bellamy on 07-12-2024 Urea nitrogen/Creatinine [Mass ratio] 16.1 mg/mg 10-20 [facility] Bilirubin, totalOrdered By: Mario Bellamy on 07-12-2024 Bilirubin [Mass/Vol] 0.51 mg/dL 0.00-1.30 [facility] CBC-Complete Blood Cnt No Di ffon 07-12-2024 Erythrocyte distribution width (RBC) [Ratio] 13.7 % Normal 11.6-14.6 [facility] Comment on above: Performed By: #### L 100.0500, L500.4100, L501.9910, L500.4050, L506.1001 #### [facility] [address] [place], [address] Hematocrit (Bld) [Volume fraction] 44.2 % Normal 40-54 [facility] Comment on above: Performed By: #### L 100.0500, L500.4100, L501.9910, L500.4050, L506.1001 #### [facility] [address] [place], [address] Hemoglobin (Bld) [Mass/Vol] 15.0 g/dL Normal 13.0-16.5 [facility] Comment on above: Performed By: #### L 100.0500, L500.4100, L501.9910, L500.4050, L506.1001 #### [facility] [address] [place], [address] MCH (RBC) [Entitic mass] 31.1 pg Normal 27.0-32.0 [facility] Comment on above: Performed By: #### L 100.0500, L500.4100, L501.9910, L500.4050, L506.1001 #### [facility] [address] [place], [address] MCHC (RBC) [Mass/Vol] 33.9 g/dL Normal 32-36 [facility] Comment on above: Performed By: #### L 100.0500, L500.4100, L501.9910, L500.4050, L506.1001 #### [facility] [address] [place], [address] MCV (RBC) [Entitic vol] 91.5 fL Normal 80-94 [facility] Comment on above: Performed By: #### L 100.0500, L500.4100, L501.9910, L500.4050, L506.1001 #### [facility] [address] [place], [address] Platelet mean volume (Bld) [Entitic vol] 9.0 fL Normal 6.2-12.0 [facility] Comment on above: Performed By: #### L 100.0500, L500.4100, L501.9910, L500.4050, L506.1001 #### [facility] [address] [place], [address] Platelets (Bld) [#/Vol] 219 10*3/uL Normal 150-450 [facility] Comment on above: Performed By: #### L 100.0500, L500.4100, L501.9910, L500.4050, L506.1001 #### [facility] [address] [place], [address] RBC (Bld) [#/Vol] 4.83 10*6/uL Normal 4.6-6.2 [facility] Comment on above: Performed By: #### L 100.0500, L500.4100, L501.9910, L500.4050, L506.1001 #### [facility] [address] [place], [address] RDW SD 46.0 fl High 35.1-43.9 [facility] Comment on above: Performed By: #### L 100.0500, L500.4100, L501.9910, L500.4050, L506.1001 #### [facility] [address] [place], [address] WBC (Bld) [#/Vol] 8.4 10*3/uL Normal 4.4-11.0 [facility] Comment on above: Performed By: #### L 100.0500, L500.4100, L501.9910, L500.4050, L506.1001 #### [facility] [address] [place], [address] Calculated very low density lipoprotein (VLDL) cholesterol measurementOrdered By: Mario Bellamy on 07-12-2024 Calculated very low density lipoprotein (VLDL) cholesterol measurement 30 mg/dL 5-40 [facility] VLDL Cholesterol 30 mg/dL 5-40 [facility] Carbon dioxide, total [Moles /volume] in Central venous bloodOrdered By: Mario Bellamy on 07-12-2024 CO2 [Moles/Vol] 22.8 mmol/L 21.0-32.0 [facility] Chloride assayOrdered By: Debby Bellamy on 07-12-2024 Chloride [Moles/Vol] 102 mmol/L 98-108 [facility] Comprehensive Metabolic Prof ilon 07-12-2024 Albumin [Mass/Vol] 4.2 g/dL Normal 3.4-4.8 [facility] Comment on above: Performed By: #### L 100.0500, L500.4100, L501.9910, L500.4050, L506.1001 #### [facility] [address] [place], [address] Albumin/Globulin [Mass ratio] 1.2 {ratio} Normal 0.9-2.4 [facility] Comment on above: Performed By: #### L 100.0500, L500.4100, L501.9910, L500.4050, L506.1001 #### [facility] [address] [place], [address] ALK PHOS 80 U/L Normal 40-129 [facility] Comment on above: Performed By: #### L 100.0500, L500.4100, L501.9910, L500.4050, L506.1001 #### [facility] [address] [place], [address] ALT [Catalytic activity/Vol] 67 U/L High <=46 [facility] Comment on above: Performed By: #### L 100.0500, L500.4100, L501.9910, L500.4050, L506.1001 #### [facility] [address] [place], [address] AST [Catalytic activity/Vol] 42 U/L High <=37 [facility] Comment on above: Performed By: #### L 100.0500, L500.4100, L501.9910, L500.4050, L506.1001 #### [facility] [address] [place], [address] Bilirubin [Mass/Vol] 0.51 mg/dL Normal 0.00-1.30 [facility] Comment on above: Performed By: #### L 100.0500, L500.4100, L501.9910, L500.4050, L506.1001 #### [facility] [address] [place], [address] BUN/CRE 16.1 RATIO Normal 10-20 [facility] Comment on above: Performed By: #### L 100.0500, L500.4100, L501.9910, L500.4050, L506.1001 #### [facility] [address] [place], [address] Calcium [Mass/Vol] 9.5 mg/dL Normal 7.6-11.0 [facility] Comment on above: Performed By: #### L 100.0500, L500.4100, L501.9910, L500.4050, L506.1001 #### [facility] [address] [place], [address] Chloride [Moles/Vol] 102 mmol/L Normal 98-108 [facility] Comment on above: Performed By: #### L 100.0500, L500.4100, L501.9910, L500.4050, L506.1001 #### [facility] [address] [place], [address] CO2 [Moles/Vol] 22.8 mmol/L Normal 21.0-32.0 [facility] Comment on above: Performed By: #### L 100.0500, L500.4100, L501.9910, L500.4050, L506.1001 #### [facility] [address] [place], [address] Creatinine [Mass/Vol] 1.29 mg/dL High 0.70-1.20 [facility] Comment on above: Performed By: #### L 100.0500, L500.4100, L501.9910, L500.4050, L506.1001 #### [facility] [address] [place], [address] GAP 12 Normal 5-15 [facility] Comment on above: Performed By: #### L 100.0500, L500.4100, L501.9910, L500.4050, L506.1001 #### [facility] [address] [place], [address] GFR/1.73 sq M.predicted among non-blacks MDRD (S/P/Bld) [Vol rate/Area] 60 mL/min/{1.73_m2} Normal >60 [facility] Comment on above: Result Comment: mL/m in/1.73m2 CKD-EPI Creatinine Equation (2020) Performed By: #### L 100.0500, L500.4100, L501.9910, L500.4050, L506.1001 #### [facility] [address] [place], [address] Globulin (S) [Mass/Vol] 3.6 g/dL Normal 2.2-4.2 [facility] Comment on above: Performed By: #### L 100.0500, L500.4100, L501.9910, L500.4050, L506.1001 #### [facility] [address] [place], [address] Glucose [Mass/Vol] 187 mg/dL High 70-99 [facility] Comment on above: Performed By: #### L 100.0500, L500.4100, L501.9910, L500.4050, L506.1001 #### [facility] [address] [place], [address] Potassium [Moles/Vol] 4.8 mmol/L Normal 3.3-5.1 [facility] Comment on above: Performed By: #### L 100.0500, L500.4100, L501.9910, L500.4050, L506.1001 #### [facility] [address] [place], [address] Sodium [Moles/Vol] 136 mmol/L Normal 133-145 [facility] Comment on above: Performed By: #### L 100.0500, L500.4100, L501.9910, L500.4050, L506.1001 #### [facility] [address] [place], [address] T PROT 7.7 g/dL Normal 5.9-8.4 [facility] Comment on above: Performed By: #### L 100.0500, L500.4100, L501.9910, L500.4050, L506.1001 #### [facility] [address] [place], [address] Urea nitrogen [Mass/Vol] 21 mg/dL High 4-19 [facility] Comment on above: Performed By: #### L 100.0500, L500.4100, L501.9910, L500.4050, L506.1001 #### [facility] [address] [place], [address] Erythrocyte distribution wid th (RBC) [Ratio]Ordered By: Mario Bellamy on 07-12-2024 Erythrocyte distribution width (RBC) [Entitic vol] 46.0 fL High 35.1-43.9 [facility] Erythrocyte distribution wid th ratioOrdered By: Mario Bellamy on 07-12-2024 Erythrocyte distribution width (RBC) [Ratio] 13.7 % 11.6-14.6 [facility] Erythrocyte distribution wid th standard deviationOrdered By: Mario Bellamy on 07-12-2024 Erythrocyte distribution width (RBC) [Ratio] 46.0 fl High 35.1-43.9 [facility] GFR/1.73 sq M.predicted gregor g non-blacks MDRD (S/P/Bld) [Vol rate/Area]Ordered By: Mario Bellamy on 07-12-2024 Estimated GFR (MDRD) Non-Af Amer 60 >60 [facility] [facility] Comment on above: mL/min/1.73m2 CKD-EP I Creatinine Equation (2020) Glomerular filtration rate ( GFR) estimation/1.73 sq m using serum, plasma, or whole bOrdered By: Mario Bellamy on 07-12-2024 GFR/1.73 sq M.predicted among non-blacks MDRD (S/P/Bld) [Vol rate/Area] 60 mL/min/{1.73_m2} >60 [facility] Comment on above: mL/min/1.73m2 CKD-EP I Creatinine Equation (2020) Hematocrit Auto (Bld) [Volum e fraction]Ordered By: Mario Bellamy on 07-12-2024 Hematocrit (Bld) [Volume fraction] 44.2 % 40-54 [facility] Hemoglobin measurementOrdere d By: Mario Bellamy on 07-12-2024 Hemoglobin (Bld) [Mass/Vol] 15.0 g/dL 13.0-16.5 [facility] LDL calc ser/plasOrdered By: Mario Bellamy on 07-12-2024 Cholesterol in LDL [Mass/Vol] 119 mg/dL [facility] Comment on above: Rtczuwbreb=200-651 m g/dL & Higher Tbcg=195 mg/dL or greater LDL Cholesterol, Calculated 119 mg/dL [facility] Comment on above: Fwuhhoiexk=230-462 m g/dL & Higher Dvnp=695 mg/dL or greater Laboratory - Chemistry and C hemistry - challengeOrdered By: Mario Bellamy on 07-12-2024 AST [Catalytic activity/Vol] 42 U/L High <38 [facility] Lipid Profileon 07-12-2024 CHOL:HDL 5.38 Normal [facility] Comment on above: Performed By: #### L 100.0500, L500.4100, L501.9910, L500.4050, L506.1001 #### [facility] [address] [place], [address] Cholesterol [Mass/Vol] 184 mg/dL Normal <=[address] [facility] Comment on above: Result Comment: Chol esterol level, Desirable <200 mg/dL Borderline high cholesterol 200-239 mg/dL High cholesterol >=240 mg/dL Recommendations of the NCEP Adult Treatment Panel for the following risk-cutoff thresholds for the [place] population. Performed By: #### L 100.0500, L500.4100, L501.9910, L500.4050, L506.1001 #### [facility] [address] [place], [address] Cholesterol in HDL [Mass/Vol] 34 mg/dL Low [facility] Comment on above: Result Comment: Leanna onal Cholesterol Education Program (NCEP) guidelines: <40 mg/dL: Low HDL-cholesterol (major risk factor for CHD) >= 60 mg/dL: High HDL-cholesterol (negative risk factor for CHD) HDL-cholesterol is affected by a number of factors, e.g. smoking, exercise, hormones, sex and age. Performed By: #### L 100.0500, L500.4100, L501.9910, L500.4050, L506.1001 #### [facility] [address] [place], [address] Cholesterol in LDL [Mass/Vol] 119 mg/dL Normal [facility] Comment on above: Result Comment: Bord wsxpnm=130-438 mg/dL Higher Mpyu=572 mg/dL or greater Performed By: #### L 100.0500, L500.4100, L501.9910, L500.4050, L506.1001 #### [facility] [address] [place], [address] Cholesterol in VLDL [Mass/Vol] 30 mg/dL Normal 5-40 [facility] Comment on above: Performed By: #### L 100.0500, L500.4100, L501.9910, L500.4050, L506.1001 #### [facility] [address] [place], [address] Triglyceride [Mass/Vol] 152 mg/dL Normal [facility] Comment on above: Result Comment: The drugs N-Acetylcysteine and Metamizole may falsely depress this assay. Normal range: <150 mg/dL Borderline High: 150-199 mg/dL High: 200-499 mg/dL Very High: >500 mg/dL Performed By: #### L 100.0500, L500.4100, L501.9910, L500.4050, L506.1001 #### [facility] [address] [place], [place], [id number] MCV (mean corpuscular volume ) determinationOrdered By: Mario Bellamy on 07-12-2024 MCV (RBC) [Entitic vol] 91.5 fL 80-94 [facility] Mean corpuscular hemoglobin (MCH) determinationOrdered By: Mario Bellamy on 07-12-2024 MCH (RBC) [Entitic mass] 31.1 pg 27.0-32.0 [facility] Mean corpuscular hemoglobin concentration (MCHC) determinationOrdered By: Mario Bellamy on 07-12-2024 MCHC (RBC) [Mass/Vol] 33.9 g/dL 32-36 [facility] Mean platelet volume determi nationOrdered By: Mario Bellamy on 07-12-2024 Platelet mean volume (Bld) [Entitic vol] 9.0 fL 6.2-12.0 [facility] PSA, total screeningOrdered By: Mario Bellamy on 07-12-2024 Prostate Specific Antigen Screen 2.28 ng/mL 0.02-4.00 [facility] Comment on above: This test was perfor med using the [employer] tPSA method. Measured values of a patient sample can vary depending on the testing procedure used. PSA values determined on patient samples by different testing procedures cannot be used interchangeably. If there is a change in PSA assays while monitoring therapy, sequential testing should be performed to confirm baseline values. PSA,Total - Annual Screenon 07-12-2024 PSA,TOT SCREEN 2.28 ng/mL Normal 0.02-4.00 [facility] Comment on above: Result Comment: This test was performed using the [employer] tPSA method. Measured values of a patient??sample can vary depending on the testing procedure used. PSA values determined on patient samples by different testing procedures cannot be used interchangeably. If there is a change in PSA assays while monitoring therapy, sequential testing should be performed to confirm baseline values. Performed By: #### L 100.0500, L500.4100, L501.9910, L500.4050, L506.1001 #### [facility] [address] [place], [address] Platelet countOrdered By: Debby Bellamy on 07-12-2024 Platelets (Bld) [#/Vol] 219 10*3/uL 150-450 [facility] Potassium (Unsp spec) [Mass/ Vol]Ordered By: Mario Bellamy on 07-12-2024 Potassium [Moles/Vol] 4.8 mmol/L 3.3-5.1 [facility] Potassium measurement (mass/ volume)Ordered By: Mario Bellamy on 07-12-2024 Potassium (Unsp spec) [Mass/Vol] 4.8 mmol/L 3.3-5.1 [facility] RBC Auto (Bld) [#/Vol]Ordere d By: Mario Bellamy on 07-12-2024 RBC (Bld) [#/Vol] 4.83 10*6/uL 4.6-6.2 [facility] Screening total cholesterol/ high density lipoprotein (HDL) cholesterol ratioOrdered By: Mario Bellamy on 07-12-2024 Cholesterol.total/Choles terol in HDL [Mass ratio] 5.38 {ratio} [facility] Serum creatinine measurement (mass/volume)Ordered By: Mario Bellamy on 07-12-2024 Creatinine [Mass/Vol] 1.29 mg/dL High 0.70-1.20 [facility] Serum globulin measurementOr dered By: Mario Bellamy on 07-12-2024 Globulin (S) [Mass/Vol] 3.6 g/dL 2.2-4.2 [facility] Serum glucose measurement (m ass/volume)Ordered By: Mario Bellamy on 07-12-2024 Glucose [Mass/Vol] 187 mg/dL High 70-99 [facility] Serum or plasma alanine sullivan otransferase (ALT) measurementOrdered By: Mario Bellamy on 07-12-2024 ALT [Catalytic activity/Vol] 67 U/L High <47 [facility] Serum or plasma albumin jolene urement (mass/volume)Ordered By: Mario Bellamy on 07-12-2024 Albumin [Mass/Vol] 4.2 g/dL 3.4-4.8 [facility] Serum or plasma albumin/glob ulin mass ratioOrdered By: Mario Bellamy on 07-12-2024 Albumin/Globulin [Mass ratio] 1.2 {ratio} 0.9-2.4 [facility] Serum or plasma alkaline janae sphatase measurementOrdered By: Mario Bellamy on 07-12-2024 ALP [Catalytic activity/Vol] 80 U/L 40-129 [facility] Serum or plasma calcium jolene urement (mass/volume)Ordered By: Mario Bellamy on 07-12-2024 Calcium [Mass/Vol] 9.5 mg/dL 7.6-11.0 [facility] Serum or plasma cholesterol in HDL measurement (mass/volume)Ordered By: Mario Bellamy on 07-12-2024 Cholesterol in HDL [Mass/Vol] 34 mg/dL Low >40 [facility] Comment on above: National Cholesterol Education Program (NCEP) guidelines:<40 mg/dL: Low HDL-cholesterol (major risk factor for CHD)>= 60 mg/dL: High HDL-cholesterol (negative risk factor for CHD)HDL-cholesterol is affected by a number of factors, e.g. smoking, exercise, hormones, sex and age. Serum or plasma cholesterol measurement (mass/volume)Ordered By: Mario Bellamy on 07-12-2024 Cholesterol [Mass/Vol] 184 mg/dL <[address] [facility] Comment on above: Cholesterol level, D esirable <200 mg/dLBorderline high cholesterol 200-239 mg/dLHigh cholesterol >=240 mg/dLRecommendations of the NCEP Adult Treatment Panel for the following risk-cutoff thresholds for the [place] population. Serum or plasma urea nitroge n measurement (mass/volume)Ordered By: Mario Bellamy on 07-12-2024 Urea nitrogen [Mass/Vol] 21 mg/dL High 4-19 [facility] Sodium levelOrdered By: Slim Bellamy on 07-12-2024 Sodium [Moles/Vol] 136 mmol/L 133-145 [facility] Total proteinOrdered By: Luis Alberto Bellamy on 07-12-2024 Protein [Mass/Vol] 7.7 g/dL 5.9-8.4 [facility] Triglycerides measurementOrd ered By: Mario Bellamy on 07-12-2024 Triglyceride [Mass/Vol] 152 mg/dL <199 [facility] Comment on above: The drugs N-Acetylcy steine and Metamizole may falsely depress this assay. Normal range: <150 mg/dLBorderline High: 150-199 mg/dLHigh: 200-499 mg/dLVery High: >500 mg/dL Vitamin D, 25-hydroxyOrdered By: Mario Bellamy on 07-12-2024 Vitamin D 25-Hydroxy 32.0 ng/mL 30-100 [facility] Comment on above: Vitamin D StatusDefi ciency: <20 ng/mL (50nmol/L)Insufficiency: 20-30 ng/mL (50-75 nmol/L)Sufficiency: 30-100 ng/mL (75-250 nmol/L)Toxicity: >100 ng/mL (>250 nmol/L) Vitamin D,25 Hydroxyon 07-12 Vitamin D 25-OH 32.0 ng/mL Normal 30-100 [facility] Comment on above: Result Comment: Trish min D Status Deficiency: <20 ng/mL (50nmol/L) Insufficiency: 20-30 ng/mL (50-75 nmol/L) Sufficiency: 30-100 ng/mL (75-250 nmol/L) Toxicity: >100 ng/mL (>250 nmol/L) Performed By: #### L 100.0500, L500.4100, L501.9910, L500.4050, L506.1001 #### [facility] [place], [address] White blood cell (WBC) count Ordered By: Mario Bellamy on 07-12-2024 WBC (Bld) [#/Vol] 8.4 10*3/uL 4.4-11.0 [facility] Internal Medicine Office Vis iton 07-10-2024 Internal Medicine Office Visit [facility] [address] [place] [address] [place] [address] OFFICE VISIT Date of Service: 07/10/24 MR#: [id number] Acct: [id number] Name: ARIS ATKINS Rep #: [id number] : 1955 Provider: AMADO Serra Age/Sex: 69/M Location: [facility] [place] Status: Signed Intake Vital Signs 04/12/24 11:05 07/10/24 10:21 Height 5 ft 10 in 5 ft 10 in Weight: 226 lb 219 lb 6 oz BMI 32.4 31.4 BP 136/80 H 124/78 H Blood Pressure Location Lt brachial Rt brachial Position Sitting Sitting Respiration 16 16 Pulse 64 76 Pulse Source Monitor Monitor Temp 97.8 F 95.1 F L Temp Source Temporal Temporal Pulse Oximetry (%) 97 95 Oxygen Delivery Method room air room air Intake Visit Reasons: 3 M FU Chief Complaint: 3m f/u Bilingual Receptionist Required: No Accompanied by: Self Is patient in pain?: No Allergies No Known Allergies Allergy (Unverified 07/10/24 10:20) Medications ???Medication ???Instructions ???Recorded ???Confirmed ???Type Adren-all PO 1XD 06/23/23 07/10/24 History ascorbic acid (vitamin C) 1,000 mg 1 g PO DAILY 06/23/23 07/10/24 H istory capsule iodoral 12.5 mg PO 1XD 06/23/23 07/10/24 H istory optiprostat PO 1XD 06/23/23 07/10/24 History selenium 200 mcg capsule 200 mcg PO DAILY 06/23/23 07/10/24 History test boost max PO 1XD 06/23/23 07/10/24 History cholecalciferol (vitamin D3) 125 125 mcg PO .three times weekly 07/10/24 History mcg (5,000 unit) capsule empagliflozin 25 mg tablet 25 mg PO QAM #90 tabs 05/14/2406/04 Rx glipizide 5 mg tablet 5 mg PO BID #180 tabs 05/31/2406/04 Rx thyroid (pork) 120 mg tablet (DYE COLORIST DYER 120 mg PO DAILY #90 tabs 06/13/24 07/10/24 Rx Thyroid) Have you fallen in the past year?: No PFSH Medical History Amputation of ring finger Hernia, umbilical Hernia, inguinal Gout Diabetes Surgical History History of hernia repair H/O thyroidectomy (Unknown) Family History Father Colon cancer Diabetes Hypertension Thyroid disorder Social History adopted: No household members: other details: [place] housing: house number of children: 1 current occupational status: retired pets and animals: Yes (dogs x 2 ) pets and animals: dog(s) history of recent travel: No Smoking Status: Never smoker second hand exposure: No alcohol intake: current alcohol intake frequency: other Previous attempts at quittin details: once or twice a month caffeine: Yes (minimal) what type of physical activity do you participate in: walking frequency: daily duration: 30-45 minutes/day seatbelt use: always do you feel safe at home: Yes HPI HPI Chief Complaint: 3m f/u Details: ARIS ATKINS, is a 69 M who presents to the office today for diabetes f/u. He states that he admits that he has not been doing great with remembering his Glipizide 5mg twice daily. He states that some days he does not remember to take it twice and sometimes not even once. He does admit that he still has not made really any significant dietary changes. He is not at this point getting any regular exercise however he continues to bowl several times a week and he states he his getting into golf season therefore will be out golfing a lot. Patient currently is feeling well and denies having any recent symptoms or concerns. He denies any chest pains, pressures, shortness of breath, palpitations, headaches, dizziness, fatigue/lethargy, myalgias, or other symptoms. Patient has not been recently checking his blood pressure. Again patient has not seen an eye doctor in well over a year now. Continues to check his feet regularly No nicotine use Minimal caffeine use Infrequent alcohol use ROS Const Constitutional: No body ache, excessive sweating, fatigue, fever(s), frequent falls, headache(s), snoring, weakness, weight change, sleep problems or change in appetite Eyes Eyes: No blurry vision, change in vision, eye pain or Light sensitivity ENT ENT: No abnormal hearing, ear or mastoid pain, tinnitus, nasal congestion, headache(s), neck pain or sore throat Resp Respiratory: No cough, shortness of breath, snoring or wheezing Cardio Cardiology: No chest pain at rest, chest pain with exertion, excessive sweating, shortness of breath, dyspnea on exertion, lightheadedness, orthopnea or palpitations Gastro GI: No abdominal pain, change in bowel habits, constipation, cramping, diarrhea, nausea/dyspepsia or vomiting Genitourinary Male: No burning urination, painful urination, urinary incontinence, urinary frequency or blood in urine Musc Musculoskeletal: No abnormal gait, (more content not included)... Normal [facility] Laboratory - Hematology and Cell countsOrdered By: Mario Bellamy on 07-10-2024 HbA1c (Bld) [Mass fraction] 9.1 % High 4.2-6.3 [facility] Internal Medicine Office Vis iton 04-12-2024 Internal Medicine Office Visit [facility] [address] [place] [address] [place] [address] OFFICE VISIT Date of Service: 04/12/24 MR#: [id number] Acct: [id number] Name: ARIS ATKINS Rep #: [id number] : 1955 Provider: AMADO Serra Age/Sex: 69/M Location: [facility] [place] Status: Signed Intake Vital Signs 12/22/23 11:11 04/12/24 11:05 Height 5 ft 10 in 5 ft 10 in Weight: 225 lb 226 lb BMI 32.3 32.4 BP 146/82 H 136/80 H Blood Pressure Location Lt brachial Lt brachial Position Sitting Sitting Respiration 16 16 Pulse 63 64 Pulse Source Monitor Monitor Temp 96.9 F L 97.8 F Temp Source Temporal Temporal Pulse Oximetry (%) 98 97 Oxygen Delivery Method room air room air Intake Visit Reasons: 3 M FU Chief Complaint: 3m f/u Bilingual Receptionist Required: No Accompanied by: Self Is patient in pain?: No Allergies No Known Allergies Allergy (Unverified 04/12/24 10:59) Medications ???Medication ???Instructions ???Recorded ???Confirmed ???Type Adren-all PO 1XD 06/23/23 04/12/24 History ascorbic acid (vitamin C) 1,000 mg 1 g PO DAILY 06/23/23 04/12/24 History capsule iodoral 12.5 mg PO 1XD 06/23/23 04/12/24 History optiprostat PO 1XD 06/23/23 04/12/24 History selenium 200 mcg capsule 200 mcg PO DAILY 06/23/23 04/12/24 History test boost max PO 1XD 06/23/23 04/12/24 History thyroid (pork) 120 mg tablet (DYE COLORIST DYER 120 mg PO DAILY #90 tabs 12/15/23 04/12/24 Rx Thyroid) cholecalciferol (vitamin D3) 125 125 mcg PO .three times weekly 12/22/23 04/12/24 History mcg (5,000 unit) capsule glipizide 5 mg tablet 5 mg PO BID #180 tabs 12/26/23 04/12/24 Rx empagliflozin 10 mg tablet 10 mg PO QAM #30 tabs 04/12/24 04/12/24 Rx (Jardiance) Have you fallen in the past year?: No PFSH Medical History Amputation of ring finger Hernia, umbilical Hernia, inguinal Gout Diabetes Surgical History History of hernia repair H/O thyroidectomy (Unknown) Family History Father Colon cancer Diabetes Hypertension Thyroid disorder Social History adopted: No household members: other details: [place] housing: house number of children: 1 current occupational status: retired pets and animals: Yes (dogs x 2 ) pets and animals: dog(s) history of recent travel: No Smoking Status: Never smoker second hand exposure: No alcohol intake: current alcohol intake frequency: other Previous attempts at quittin details: once or twice a month caffeine: Yes (minimal) what type of physical activity do you participate in: walking frequency: daily duration: 30-45 minutes/day seatbelt use: always do you feel safe at home: Yes HPI HPI Chief Complaint: 3m f/u Details: ARIS ATKINS, is a 69 M who presents to the office today for 3 month diabetes check -up. Patient states that it has been a tough several months in terms of life being a whirlwind and so his dietary habits have not been good. He does state though that is been a very good 3 months and he has no concerns or complaints at this time. He denies any chest pains, pressures, shortness of breath, palpitations, headaches, dizziness, fatigue/lethargy, myalgias, or other symptoms. Patient does check his BP and states that its between 130s and 140s systolically and 80s diastolically Patient is not currently doing exercise Diet is ok. He states that he got in January, then there was giving, then there was [place] and so he has not been great at the diet. He states that the has a sweet tooth and so he needs to reduce the sweets He has not seen eye doctor since at least over a year. He is going to be seeing them early this year. He has had a little change in the right eye having periodic floater He has not had any gout flares recently He does drink a lot of water He has not seen podiatry but checks his feet regularly Denies any anxiety or depression ROS Const Constitutional: No body ache, chills, excessive sweating, fatigue, fever(s), frequent falls, headache(s), snoring, weakness or change in appetite Eyes Eyes: No blurry vision, change in vision, eye pain or Light sensitivity ENT ENT: No abnormal hearing, ear or mastoid pain, tinnitus, nasal congestion, headache(s), neck pain or sore throat Resp Respiratory: No cough, shortness of breath, snoring or wheezing Cardio Cardiology: No chest pain at rest, chest pain with exertion, excessive sweating, dyspnea on exertion, lightheadedness, orthopnea or palpitations Gastro GI: No abdominal pain, change in bowel habits, constipation, cramping, diarrhea, nausea/dyspepsia or vomiting Genitourinary Male: No burning urinatio (more content not included)... Normal [facility] - Hematology and Cell countson 04-12-2024 HbA1c (Bld) [Mass fraction] 9.6 % High 4.2-6.3 [facility] Internal Medicine Office Vis iton 12-22-2023 Internal Medicine Office Visit [facility] [address] [place] [address] [place] [address] OFFICE VISIT Date of Service: 12/22/23 MR#: [id number] Acct: [id number] Name: ARIS ATKINS Rep #: [id number] : 1955 Provider: AMADO Serra Age/Sex: 68/M Location: [facility] [place] Status: Signed Intake Vital Signs 06/23/23 11:04 12/22/23 11:11 Height 5 ft 10 in 5 ft 10 in Weight: 210 lb 225 lb BMI 30.1 32.3 BP 136/78 H 146/82 H Blood Pressure Location Rt brachial Lt brachial Position Sitting Sitting Respiration 16 16 Pulse 66 63 Pulse Source Monitor Monitor Temp 97.8 F 96.9 F L Temp Source Temporal Temporal Pulse Oximetry (%) 98 98 Oxygen Delivery Method room air room air Intake Visit Reasons: MED FU Chief Complaint: MED FU Is patient in pain?: No Allergies No Known Allergies Allergy (Unverified 12/22/23 11:08) Medications ???Medication ???Instructions ???Recorded ???Confirmed ???Type Adren-all PO 1XD 06/23/23 12/22/23 History ascorbic acid (vitamin C) 1,000 mg 1 g PO DAILY 06/23/23 12/22/23 History capsule glipizide 5 mg tablet 5 mg PO BID #180 tabs 06/23/23 12/22/23 Rx iodoral 12.5 mg PO 1XD 06/23/23 12/22/23 History optiprostat PO 1XD 06/23/23 12/22/23 History selenium 200 mcg capsule 200 mcg PO DAILY 06/23/23 12/22/23 History test boost max PO 1XD 06/23/23 12/22/23 History thyroid (pork) 120 mg tablet (DYE COLORIST DYER 120 mg PO DAILY #90 tabs 12/15/23 12/22/23 Rx Thyroid) cholecalciferol (vitamin D3) 125 125 mcg PO .three times weekly 12/22/23 12/22/23 History mcg (5,000 unit) capsule Have you fallen in the past year?: No PFSH Medical History Amputation of ring finger Hernia, umbilical Hernia, inguinal Gout Diabetes Surgical History History of hernia repair H/O thyroidectomy (Unknown) Family History Father Colon cancer Diabetes Hypertension Thyroid disorder Social History adopted: No household members: other details: [place] housing: house number of children: 1 current occupational status: retired pets and animals: Yes (dogs x 2 ) pets and animals: dog(s) history of recent travel: No Smoking Status: Never smoker second hand exposure: No alcohol intake: current alcohol intake frequency: other Previous attempts at quittin details: once or twice a month caffeine: Yes (minimal) what type of physical activity do you participate in: walking frequency: daily duration: 30-45 minutes/day seatbelt use: always do you feel safe at home: Yes HPI HPI Chief Complaint: MED FU Details: ARIS ATKINS, is a 68 M who presents to the office today for 3 month diabetes check. Patient states that overall he is doing well. He does not have any concerns or complaints at this time. He states that he busy with work and his upcoming wedding and bowling season coming up. Patient states that he does check his sugars but not as often as he should maybe once or twice a week. Patient states that he typically sees the numbers in the 200s. So he knows that this is higher. Patient states that he walks the dogs everyday and he bowls and golfs so he does stay active and gets regular exercise. Patient does try and watch his diet. He states that his is a good cook and so he knows that he probably doesn't eat the best of foods. Patient has seen an eye doctor at the same time has been a year and he is due to see them. No significant changes (he does wear a contact lens in one eye). Patient has not seen podiatry for a very long time. he states that he does do regular feet / skin checks. He states that he does not have any numbness / tingling. Patient does not check BP at home. ROS Const Constitutional: No body ache, chills, excessive sweating, fatigue, fever(s), frequent falls, headache(s), snoring, weakness, sleep problems or change in appetite Eyes Eyes: No blurry vision, change in vision or Light sensitivity ENT ENT: No abnormal hearing, ear or mastoid pain, tinnitus, nasal congestion, nasal discharge, headache(s), neck pain or sore throat Resp Respiratory: Positive for cough (EVERY AM X2 MONTHS) Cough: Yes non-productive; No shortness of breath, snoring or wheezing Cardio Cardiology: No chest pain at rest, chest pain with exertion, excessive sweating, shortness of breath, dyspnea on exertion, lightheadedness, orthopnea or palpitations Gastro GI: No abdominal pain, change in bowel habits, constipation, cramping, diarrhea or nausea/dyspepsia Genitourinary Male: No burning urination, painful urination, urinary incontinence or urinary frequency Musc Musculoskeletal: No abnormal gait, joint pain, back pain, li (more content not included)... Normal [facility] Absolute lymphocyte countOrd ered By: Mario Bellamy on 07-12-2023 Lymphocytes Auto (Unsp spec) [#/Vol] 1.41 10*3/uL 0.83-4.51 [facility] Automated lymphocyte count a s percentage of total leukocytesOrdered By: Mario Bellamy on 07-12-2023 Lymphocytes/100 WBC Auto (Unsp spec) 20.8 % 19-41 [facility] Basophil percentageOrdered B y: Mario Bellamy on 07-12-2023 Basophils/100 WBC (Bld) 0.4 % 0-1 [facility] Bilirubin [Mass/Vol] 0.50 mg/dL 0.20-1.00 [facility] Comment on above: For patients on eltr ombopag therapy, use of Dimension Castell TBIL is not recommended. Chloride [Moles/Vol] 105 mmol/L 98-107 [facility] Cholesterol [Mass/Vol] 183 mg/dL <[address] [facility] Comment on above: <200 mg/dL Desirable 200-240 mg/dL Borderline >240 mg/dL High Risk Eosinophils/100 WBC (Bld) 4.9 % 0-5 [facility] Glucose [Mass/Vol] 176 mg/dL 74-106 [facility] Comment on above: Fasting Glucose resu lt greater than or equal to 126 mg/dL suggests DIABETES MELLITUS per A.D.A. criteria. Hemoglobin (Bld) [Mass/Vol] 13.6 g/dL 13.0-16.5 [facility] Monocytes/100 WBC (Bld) 7.2 % 0-10 [facility] Neutrophils (Bld) [#/Vol] 4.5 10*3/uL 2.0-7.7 [facility] Neutrophils/100 WBC (Bld) 66.1 % 47-70 [facility] Potassium [Moles/Vol] 4.4 mmol/L 3.5-5.1 [facility] Protein [Mass/Vol] 7.8 g/dL 6.4-8.2 [facility] Sodium [Moles/Vol] 138 mmol/L 136-145 [facility] Triglyceride [Mass/Vol] 205 mg/dL <199 [facility] Comment on above: The drugs N-Acetylcy steine and Metamizole may falsely depress this assay.Serum Triglycerides Reference Interval Normal <150 mg/dL Borderline high 150 - 199 mg/dL High 200 - 499 mg/dL Very High > or = 500 mg/dL WBC (Bld) [#/Vol] 6.8 10*3/uL 4.4-11.0 [facility] Determination of erythrocyte mean corpuscular volume (MCV)Ordered By: Mario Bellamy on 07-12-2023 MCV (RBC) [Entitic vol] 90.5 fL 80-94 [facility] Erythrocyte distribution wid th ratioOrdered By: Mario Bellamy on 07-12-2023 Erythrocyte distribution width (RBC) [Ratio] 14.4 % 11.6-14.6 [facility] Erythrocyte distribution wid th standard deviationOrdered By: Mario Bellamy on 07-12-2023 Erythrocyte distribution width (RBC) [Entitic vol] 46.5 fL 35.1-43.9 [facility] Hematocrit Auto (Bld) [Volum e fraction]Ordered By: Mario Bellamy on 07-12-2023 Hematocrit (Bld) [Volume fraction] 40.2 % 40-54 [facility] Immature granulocytes/100 WB C Auto (Bld)Ordered By: Mario Bellamy on 07-12-2023 Immature granulocytes/100 WBC (Bld) 0.600 % 0.0-0.9 [facility] Comment on above: IG% - Immature Granu locytes (promyelocytes, myelocytes and metamyelocytes) > 1% indicates that a LEFT SHIFT is Present. Laboratory - Chemistry and C hemistry - challengeOrdered By: Mario Bellamy on 07-12-2023 Albumin/Globulin [Mass ratio] 0.9 {ratio} 0.9-2.4 [facility] ALP [Catalytic activity/Vol] 79 U/L 45-117 [facility] ALT [Catalytic activity/Vol] 50 U/L 16-61 [facility] Cholesterol in HDL [Mass/Vol] 37 mg/dL >40 [facility] Comment on above: The drugs N-Acetylcy steine and Metamizole may falsely depress this assay. Reference Range HDL <40 mg/dL Low HDL Cholesterol HDL >or= 60 mg/dL High HDL Cholesterol Cholesterol in LDL [Mass/Vol] 105 mg/dL 0-130 [facility] CO2 [Moles/Vol] 28.0 mmol/L 21.0-32.0 [facility] Globulin (S) [Mass/Vol] 4.2 g/dL 2.2-4.2 [facility] Urea nitrogen/Creatinine [Mass ratio] 13.0 mg/mg 10-20 [facility] Laboratory - Hematology and Cell countsOrdered By: Mario Bellamy on 07-12-2023 MCH (RBC) [Entitic mass] 30.6 pg 27.0-32.0 [facility] MCHC (RBC) [Mass/Vol] 33.8 g/dL 32-36 [facility] Nucleated RBC/100 WBC (Bld) [Ratio] 0 % 0-5 [facility] Platelet mean volume (Bld) [Entitic vol] 8.6 fL 6.2-12.0 [facility] Platelets (Bld) [#/Vol] 188 10*3/uL 150-450 [facility] No Panel InformationOrdered By: Mario Bellamy on 07-12-2023 Estimated GFR (MDRD) Amer 75 mL/min >60 [facility] Comment on above: GFR Calc Estimated GFR (MDRD) Non-Af Amer 62 mL/min >60 [facility] Comment on above: Non- GFR Calc Prostate Specific Antigen Screen 3.16 ng/mL 0.00-4.00 [facility] Comment on above: This test was perfor med using the TPSA assay method for [employer] chemistry system. Values obtained with differentassay methods cannot be used interchangably.When changing PSA assays in the course of monitoring apatient, additional sequential testing should be carriedout to confirm baseline values. VLDL Cholesterol 41 mg/dL 5-40 [facility] RBC Auto (Bld) [#/Vol]Ordere d By: Mario Bellamy on 07-12-2023 RBC (Bld) [#/Vol] 4.44 10*6/uL 4.6-6.2 [facility] Serum or plasma calcium jolene urement (mass/volume)Ordered By: Mario Bellamy on 07-12-2023 Calcium [Mass/Vol] 9.1 mg/dL 8.5-10.1 [facility] Serum or plasma creatinine m easurement (mass/volume)Ordered By: Mario Bellamy on 07-12-2023 Creatinine [Mass/Vol] 1.23 mg/dL 0.70-1.30 [facility] Comment on above: The validity of the calculated GFR & GFRAA in patients over 70 years has not been determined. Clinical correlation is essential. Serum or plasma urea nitroge n measurement (mass/volume)Ordered By: Mraio Bellamy on 07-12-2023 Urea nitrogen [Mass/Vol] 16 mg/dL 7-18 [facility] Thin prep Papanicolaou smear with manual screeningOrdered By: Mario Bellamy on 07-12-2023 Thin prep Papanicolaou smear with manual screening 3.6 g/dL 3.2-5.0 [facility] Thin prep Papanicolaou smear with manual screening 30 U/L 15-37 [facility] Thin prep Papanicolaou smear with manual screening 5 5-15 [facility] Laboratory - Hematology and Cell countson 06-23-2023 HbA1c (Bld) [Mass fraction] 10.4 % 4.2-6.3 [facility] 36on 11-28-2022 36 Preferred contact number: [phone] Reason for Visit: Pt cx appt for 8. due to not feeling well. Please call to r/s Message in ecw Urgency of Appointment: n/a Medications in need of refill: n/a Normal [facility] US SOFT TISSUE HEAD/NECK 765 36on 05-15-2017 US SOFT TISSUE HEAD/NECK 94099 Performed at [facility] APPROVED BY: NOEL SAENZ MD THYROID ULTRASOUND CLINICAL INDICATION: Thyroid nodule. History of thyroidectomy 10/2012. COMPARISON: None. FINDINGS/IMPRESSION:T here has been prior thyroidectomy. In the left thyroid bed, there is a 1.3 x 0.7 x 1.4 cm well-defined ovoid hypoechoic solid nodule. Differential diagnosis includes a mildly enlarged lymph node, parathyroid gland/adenoma or residual thyroid tissue. This would be amenable to ultrasound-guided percutaneous FNA. No other abnormality identified. Normal [facility] IOL BIOMETRY W/ IOL CALC OU (BOTH EYES) [facility] Vital Signs Date Time Vital Sign Value Performing Clinician Facility 12-11-2024 10:01040 Body mass index (BMI) [Ratio] 28.89 kg/m2 Michael Marinelli MD Work Phone: [facility] 12-11-2024 10:01040 Body weight 88.72 kg Michael Marinelli MD Work Phone: [facility] 12-11-2024 10:01-040 Diastolic blood pressure 70 mm[Hg] Michael domínguez MD Work Phone: [facility] 12-11-2024 10:01-040 Heart rate 55 /min Michael Marinelli MD Work Phone: [facility] 12-11-2024 10:01-0400 SaO2% (BldA) [Mass fraction] 98 % Michael Marinelli MD Work Phone: [facility] 12-11-2024 10:01-0400 Systolic blood pressure 109 mm[Hg] Michael Marinelli MD Work Phone: [facility] 12-06-2024 14:52-0400 Body height 177.8 cm Mario Wayt PA Work Phone: [facility] 12-06-2024 14:52-0400 Body mass index (BMI) [Ratio] 27.9 kg/m2 Mario Wayt PA Work Phone: [facility] 12-06-2024 14:52-0400 Body temperature 96.7 [degF] Mario Wayt PA Work Phone: [facility] 12-06-2024 14:52-0400 Body weight 88.45 kg Mario Wayt PA Work Phone: [facility] 12-06-2024 14:52-0400 Diastolic blood pressure 82 mm[Hg] Mario Wayt PA Work Phone: [facility] 12-06-2024 14:52-0400 Heart rate 67 /min Mario Wayt PA Work Phone: [facility] 12-06-2024 14:52-0400 Respiratory rate 16 /min Mario Wayt PA Work Phone: [facility] 12-06-2024 14:52-0400 SaO2% (BldA) [Mass fraction] 98 % Mario Wayt PA Work Phone: [facility] 12-06-2024 14:52-0400 Systolic blood pressure 120 mm[Hg] Mario Wayt PA Work Phone: [facility] 11-15-2024 13:04-0400 Body height 177.8 cm Mario Wayt PA Work Phone: [facility] 11-15-2024 13:04-0400 Body mass index (BMI) [Ratio] 28.7 kg/m2 Mario Wayt PA Work Phone: [facility] 11-15-2024 13:04-0400 Body temperature 96.6 [degF] Mario Wayt PA Work Phone: [facility] 11-15-2024 13:04-0400 Body weight 90.71 kg Mario Wayt PA Work Phone: [facility] 11-15-2024 13:04-0400 Diastolic blood pressure 72 mm[Hg] Mario Wayt PA Work Phone: [facility] 11-15-2024 13:04-0400 Heart rate 85 /min Mario Wayt PA Work Phone: [facility] 11-15-2024 13:04-0400 Respiratory rate 16 /min Mario Wayt PA Work Phone: [facility] 11-15-2024 13:04-0400 SaO2% (BldA) [Mass fraction] 98 % Mario Wayt PA Work Phone: [facility] 11-15-2024 13:04-0400 Systolic blood pressure 120 mm[Hg] Mario Wayt PA Work Phone: [facility] 10-16-2024 16:10-0400 Body height 177.8 cm Mario Wayt PA Work Phone: [facility] 10-16-2024 16:10-0400 Body mass index (BMI) [Ratio] 29.5 kg/m2 Mario Wayt PA Work Phone: [facility] 10-16-2024 16:10-0400 Body temperature 97.5 [degF] Mario Wayt PA Work Phone: [facility] 10-16-2024 16:10-0400 Body weight 93.44 kg Mario Wayt PA Work Phone: [facility] 10-16-2024 16:10-0400 Diastolic blood pressure 78 mm[Hg] Mario Wayt PA Work Phone: [facility] 10-16-2024 16:10-0400 Heart rate 70 /min Mario Wayt PA Work Phone: [facility] 10-16-2024 16:10-0400 Respiratory rate 16 /min Mario Wayt PA Work Phone: [facility] 10-16-2024 16:10-0400 SaO2% (BldA) [Mass fraction] 99 % Mario Wayt PA Work Phone: [facility] 10-16-2024 16:10-0400 Systolic blood pressure 114 mm[Hg] Mario Davidt PA Work Phone: [facility] 10-03-2024 13:10-0400 Body height 175.3 cm Shantell Escobare CASTING MACHINE CONTROL BOARD OPERATOR.CONTINUING EDUCATION DEAN Work Phone: [facility] 10-03-2024 13:10-0400 Body mass index (BMI) [Ratio] 29.56 kg/m2 Shantell Samanotone CASTING MACHINE CONTROL BOARD OPERATOR.CONTINUING EDUCATION DEAN Work Phone: [facility] 10-03-2024 13:10-0400 Body weight 90.81 kg hSantell Escobare CASTING MACHINE CONTROL BOARD OPERATOR.CONTINUING EDUCATION DEAN Work Phone: [facility] 10-03-2024 13:10-0400 Diastolic blood pressure 70 mm[Hg] Shantell Samanoton e CASTING MACHINE CONTROL BOARD OPERATOR.CONTINUING EDUCATION DEAN Work Phone: [facility] 10-03-2024 13:10-0400 Heart rate 76 /min Shantell Pistone CASTING MACHINE CONTROL BOARD OPERATOR.CONTINUING EDUCATION DEAN Work Phone: [facility] 10-03-2024 13:10-0400 Respiratory rate 16 /min Shantell Pistone CASTING MACHINE CONTROL BOARD OPERATOR.CONTINUING EDUCATION DEAN Work Phone: [facility] 10-03-2024 13:10-0400 SaO2% (BldA) [Mass fraction] 96 % Shantell Pistone CASTING MACHINE CONTROL BOARD OPERATOR.CONTINUING EDUCATION DEAN Work Phone: [facility] 10-03-2024 13:10-0400 Systolic blood pressure 122 mm[Hg] Shantell Byrd CONTINUING EDUCATION DEAN Work Phone: [facility] 10-02-2024 08:33-0400 Diastolic blood pressure 74 mm[Hg] Tani parmar MD, PhD Work Phone: [facility] 10-02-2024 08:33-0400 Heart rate 70 /min Tani Mendoza MD, PhD Work Phone: [facility] 10-02-2024 08:33-0400 Respiratory rate 16 /min Tani Mendoza MD, PhD Work Phone: [facility] 10-02-2024 08:33-0400 SaO2% (BldA) [Mass fraction] 99 % Tani Mendoza MD, PhD Work Phone: [facility] 10-02-2024 08:33-0400 Systolic blood pressure 120 mm[Hg] Tani Mendoza MD, PhD Work Phone: [facility] 09-25-2024 13:03-0400 Body temperature 97 [degF] Mario Wayt PA Work Phone: [facility] 09-25-2024 13:03-0400 Body weight 96.16 kg Mario Wayt PA Work Phone: [facility] 09-25-2024 13:03-0400 Diastolic blood pressure 72 mm[Hg] Mario Wayt PA Work Phone: [facility] 09-25-2024 13:03-0400 Heart rate 74 /min Mario Wayt PA Work Phone: [facility] 09-25-2024 13:03-0400 Respiratory rate 16 /min Mario Wayt PA Work Phone: [facility] 09-25-2024 13:03-0400 SaO2% (BldA) [Mass fraction] 97 % Mario Wayt PA Work Phone: [facility] 09-25-2024 13:03-0400 Systolic blood pressure 122 mm[Hg] Mario FISCHER Work Phone: [facility] 09-16-2024 14:01-0400 Body height 175.3 cm Shantell Samanodonnie CASTING MACHINE CONTROL BOARD OPERATOR.CONTINUING EDUCATION DEAN Work Phone: [facility] Comment on above: patient reports 09-16-2024 14:01-0400 Body mass index (BMI) [Ratio] 31.45 kg/m2 Shantell Byrd CASTING MACHINE CONTROL BOARD OPERATOR.CONTINUING EDUCATION DEAN Work Phone: [facility] 09-16-2024 14:01-0400 Body weight 96.62 kg Shantell Samanodonnie CASTING MACHINE CONTROL BOARD OPERATOR.CONTINUING EDUCATION DEAN Work Phone: [facility] Comment on above: patient has a plastic binder on; doesn't have stability 09-16-2024 14:01-0400 Diastolic blood pressure 60 mm[Hg] Shantell hair CASTING MACHINE CONTROL BOARD OPERATOR.CONTINUING EDUCATION DEAN Work Phone: [facility] 09-16-2024 14:01-0400 Heart rate 73 /min Shantell Byrd CASTING MACHINE CONTROL BOARD OPERATOR.CONTINUING EDUCATION DEAN Work Phone: [facility] 09-16-2024 14:01-0400 SaO2% (BldA) [Mass fraction] 99 % Shantell Jazmynedonnie CASTING MACHINE CONTROL BOARD OPERATOR.CONTINUING EDUCATION DEAN Work Phone: [facility] 09-16-2024 14:01-0400 Systolic blood pressure 110 mm[Hg] Shantell Pisdonnie CASTING MACHINE CONTROL BOARD OPERATOR.CONTINUING EDUCATION DEAN Work Phone: [facility] 08-31-2024 03:57-0400 SaO2% (BldA) [Mass fraction] 98 % EMILY TOMAS [facility] Comment on above: Order Comment: Specimen Type: ARTERIAL B LOOD SPECIMENOrdering Facility: [facility] Address: [address] [place] [address] Performed By: #### A LLBG ####[facility] LABORATORYCLIA [id number] [place] [address] [place] 08-30-2024 20:07-0400 SaO2% (BldA) [Mass fraction] 97 % [facility] Comment on above: Order Comment: Specimen Type: ARTERIAL B LOOD SPECIMENOrdering Facility: [facility] Address: [address] [place] [address] Performed By: #### A LLBG ####[facility]ORATORYCLIA [id number] [address] 08-30-2024 14:26-0400 SaO2% (BldA) [Mass fraction] 98 % [facility] Comment on above: Order Comment: Specimen Type: ARTERIAL B LOOD SPECIMENOrdering Facility: [facility] Address: [address] [place] [address] Performed By: #### A LLBG ####[facility] LABORATORYCLIA [id number] [address] 08-09-2024 08:07-0400 Body height 177.8 cm Mario Bellamy PA Work Phone: [facility] 08-09-2024 08:07-0400 Body mass index (BMI) [Ratio] 30.7 kg/m2 Mario Bellamy PA Work Phone: [facility] 08-09-2024 08:07-0400 Body temperature 96.2 [degF] Mario Bellamy PA Work Phone: [facility] 08-09-2024 08:07-0400 Body weight 97.29 kg Mario Bellamy PA Work Phone: [facility] 08-09-2024 08:07-0400 Diastolic blood pressure 80 mm[Hg] Mario Bellamy PA Work Phone: [facility] 08-09-2024 08:07-0400 Heart rate 73 /min Mario Bellamy PA Work Phone: [facility] 08-09-2024 08:07-0400 Respiratory rate 16 /min Mario Bellamy PA Work Phone: [facility] 08-09-2024 08:07-0400 SaO2% (BldA) [Mass fraction] 96 % Mario Wayt PA Work Phone: [facility] 08-09-2024 08:07-0400 Systolic blood pressure 132 mm[Hg] Mario Wayt PA Work Phone: [facility] 07-10-2024 10:21-0400 Body height 177.8 cm Mario Wayt PA Work Phone: [facility] 07-10-2024 10:21-0400 Body mass index (BMI) [Ratio] 31.4 kg/m2 Mario Wayt PA Work Phone: [facility] 07-10-2024 10:21-0400 Body temperature 95.1 [degF] Mario Wayt PA Work Phone: [facility] 07-10-2024 10:21-0400 Body weight 99.5 kg Mario Wayt PA Work Phone: [facility] 07-10-2024 10:21-0400 Diastolic blood pressure 78 mm[Hg] Mario Wayt PA Work Phone: [facility] 07-10-2024 10:21-0400 Heart rate 76 /min Mario Wayt PA Work Phone: [facility] 07-10-2024 10:21-0400 Respiratory rate 16 /min Mario Wayt PA Work Phone: [facility] 07-10-2024 10:21-0400 SaO2% (BldA) [Mass fraction] 95 % Mario Wayt PA Work Phone: [facility] 07-10-2024 10:21-0400 Systolic blood pressure 124 mm[Hg] Mario Wayt PA Work Phone: [facility] 04-12-2024 11:05-0500 Body mass index (BMI) [Ratio] 32.4 kg/m2 Mario Wayt PA Work Phone: [facility] 04-12-2024 11:05-0500 Body temperature 97.8 [degF] Mario Wayt PA Work Phone: [facility] 04-12-2024 11:05-0500 Body weight 102.51 kg Mario Wayt PA Work Phone: [facility] 04-12-2024 11:05-0500 Diastolic blood pressure 80 mm[Hg] Mario Wayt PA Work Phone: [facility] 04-12-2024 11:05-0500 Heart rate 64 /min Mario Wayt PA Work Phone: [facility] 04-12-2024 11:05-0500 Respiratory rate 16 /min Mario Wayt PA Work Phone: [facility] 04-12-2024 11:05-0500 SaO2% (BldA) [Mass fraction] 97 % Mario Wayt PA Work Phone: [facility] 04-12-2024 11:05-0500 Systolic blood pressure 136 mm[Hg] Mario Wayt PA Work Phone: [facility] 06-23-2023 11:04-0400 Body height 177.8 cm PA Mario Wayt PA Work Phone: [facility] 06-23-2023 11:04-0400 Body mass index (BMI) [Ratio] 30.1 kg/m2 PA Mario Wayt PA Work Phone: [facility] 06-23-2023 11:04-0400 Body temperature 97.8 [degF] PA Mario Wayt PA Work Phone: [facility] 06-23-2023 11:04-0400 Body weight 95.25 kg PA Mario Wayt PA Work Phone: [facility] 06-23-2023 11:04-0400 Diastolic blood pressure 78 mm[Hg] PA Mario Wayt PA Work Phone: [facility] 06-23-2023 11:04-0400 Heart rate 66 /min PA Mario Wayt PA Work Phone: [facility] 06-23-2023 11:04-0400 Respiratory rate 16 /min AMADO FISCHER Work Phone: [facility] 06-23-2023 11:04-0400 SaO2% (BldA) [Mass fraction] 98 % AMADO FISCHER Work Phone: [facility] 06-23-2023 11:04-0400 Systolic blood pressure 136 mm[Hg] AMADO FISCHER Work Phone: [facility] Encounters Encounter Date Encounter Type Care Provider Facility Start: 12-11-2024 ambulatory Mario FISCHER Facilit y:[facility] Start: 12-11-2024 End: 12-11-2024 Patient encounter procedure Michael Marinelli MD Work Phone: [facility] [place] Comment on above: Chronic systolic con gestive heart failure (HCC) (Primary Dx); S/P CABG (coronary artery bypass graft); SVT (supraventricular tachycardia) (HCC) Start: 12-11-2024 End: 12-11-2024 ambulatory MICHAEL MARINELLI Facility:[facility] Start: 12-06-2024 End: 12-06-2024 Patient encounter procedure Mario FISCHER -[facility] Work Phone: Start: 12-06-2024 End: 12-06-2024 ambulatory Mario FISCHER Work Phone: -[facility] Start: 11-21-2024 End: 11-21-2024 Transcribe Orders Mario Bellamy Work Phone: Referring Physician Comment on above: Disorder of urinary system (Primary Dx) Start: 11-15-2024 End: 11-15-2024 Patient encounter procedure Mario FISCHER -[facility] Work Phone: Start: 11-15-2024 End: 11-15-2024 ambulatory Mario FISCHER Work Phone: -[facility] Start: 11-13-2024 End: 11-13-2024 ambulatory TANI MENDOZA Facility:[facility] Start: 10-16-2024 End: 10-16-2024 Patient encounter procedure Mario FISCHER -[facility] Work Phone: Start: 10-16-2024 End: 10-16-2024 ambulatory Mario FISCHER Work Phone: -[facility] Start: 10-03-2024 End: 10-03-2024 ambulatory SHANTELLPANTERA SAMANODONNIE Facility:[facility] Start: 10-03-2024 End: 10-03-2024 Patient encounter procedure Shantell Byrd CASTING MACHINE CONTROL BOARD OPERATOR.CONTINUING EDUCATION DEAN Work Phone: [facility] Comment on above: 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 (HCC) (Primary Dx); S/P CABG (coronary artery bypass graft) Start: 10-02-2024 End: 10-02-2024 Patient encounter procedure Tani Mendoza MD, PhD Work Phone: [facility] Comment on above: Fracture (Primary Dx ); Encounter for care involving use of rehabilitation procedure Start: 10-02-2024 End: 10-02-2024 ambulatory TANI CINDYSAMANTHA Facility:[facility] Start: 10-02-2024 End: 10-02-2024 Subsequent hospital visit by physician Carly [place] [employer] [facility] Comment on above: Closed fracture of e ighth thoracic vertebra with routine healing, unspecified fracture morphology, subsequent encounter [S22.069D] Start: 09-30-2024 End: 09-30-2024 Telephone encounter Jeanne Fregoso APRN.CONTINUING EDUCATION DEAN Work Phone: [facility] Comment on above: Appointment Start: 09-25-2024 End: 09-25-2024 Patient encounter procedure Mario FISCHER -[facility] Work Phone: Start: 09-25-2024 End: 09-25-2024 ambulatory Mario FISCHER Work Phone: [facility] Work Phone: Start: 09-23-2024 End: 09-23-2024 Telephone encounter Dave Gaines MD Work Phone: [facility] Comment on above: Appointment (Appoint ment ) Start: 09-20-2024 End: 09-20-2024 Telephone encounter Jeanne Zazuetakens CASTING MACHINE CONTROL BOARD OPERATOR.CONTINUING EDUCATION DEAN Work Phone: [facility] Comment on above: Appointment Start: 09-16-2024 End: 09-16-2024 Patient encounter procedure Shantell Byrd [facility].CONTINUING EDUCATION DEAN Work Phone: [facility] Comment on above: 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 (HCC) (Primary Dx); S/P CABG (coronary artery bypass graft); Closed fracture of eighth thoracic vertebra with routine healing, unspecified fracture morphology, subsequent encounter; Closed fracture of ninth thoracic vertebra with routine healing, unspecified fracture morphology, subsequent encounter; Hypervolemia, unspecified hypervolemia type Start: 09-16-2024 End: 09-16-2024 Telephone encounter Dave Gaines MD Work Phone: [facility] Comment on above: Patient Update (Whitney Conde, [facility] with report/hand-off) Start: 09-16-2024 End: 09-16-2024 ambulatory SHANTELL BYRD Facility:[facility] Start: 09-09-2024 End: 09-09-2024 Telephone encounter Cathie Duffy [facility] Comment on above: Cardiac Rehab (Initi al Outreach - to determine location) Start: 09-05-2024 End: 09-20-2024 ambulatory JANAY WEBSTER Facility:[facility] Start: 09-05-2024 End: 09-20-2024 Subsequent hospital visit by physician Janay Webster MD Work Phone: [facility] Start: 09-05-2024 End: 09-05-2024 Admission to same day surgery center Anna Hill APRN.CONTINUING EDUCATION DEAN Work Phone: [place] [facility] Comment on above: cardiothoracic surge ry Start: 09-05-2024 End: 09-05-2024 E-mail encounter from caregiver Anna Hill APRN.CONTINUING EDUCATION DEAN Work Phone: [place] [facility] Start: 09-05-2024 End: 09-05-2024 Telephone encounter Gabriela KyleMicaela THERMOSCREW OPERATOR Work Phone: [facility] Comment on above: Home Care (Confirmat ion Call) Start: 08-31-2024 Patient encounter status Gabriela KyleMicaela THERMOSCREW OPERATOR Work Phone: [facility] Start: 08-26-2024 End: 08-26-2024 Follow-up encounter Ki Ch MD Work Phone: [place] [facility] Comment on above: Results Start: 08-21-2024 Patient encounter status Dave Gaines MD Work Phone: [facility] Work Phone: Start: 08-20-2024 End: 08-21-2024 Telephone encounter Dave Gaines MD Work Phone: [facility] Comment on above: Orders Start: 08-16-2024 End: 08-19-2024 Telephone encounter Michael Marinelli MD Work Phone: [place] [facility] Start: 08-15-2024 End: 09-05-2024 Evaluation and management of inpatient EMILY TOMAS Facility:[facility] Start: 08-09-2024 End: 08-09-2024 Patient encounter procedure Mario FISCHER -[facility] Work Phone: Start: 08-09-2024 End: 08-09-2024 ambulatory Mario FISCHER Facility:[facility] Start: 07-12-2024 End: 07-12-2024 ambulatory Mario FISCHER Work Phone: [facility] Work Phone: Start: 07-12-2024 End: 07-12-2024 Patient encounter procedure Mario FISCHER -Laboratory, [facility] Start: 07-12-2024 End: 07-12-2024 ambulatory Mario Wayt PA Facility:[facility] Start: 07-10-2024 End: 07-10-2024 Patient encounter procedure Mario Bellamy PA -[facility] Work Phone: Start: 07-10-2024 End: 07-10-2024 ambulatory Mario Davidt PA Facility:[facility] Start: 04-12-2024 End: 04-12-2024 Patient encounter procedure Mario Bellamy PA -[facility] Work Phone: Start: 04-12-2024 End: 04-12-2024 ambulatory Mario Davidt PA Facility:[facility] Start: 12-22-2023 End: 12-22-2023 ambulatory Mario Davidt PA Facility:[facility] Start: 07-28-2023 End: 07-28-2023 ambulatory PA Mario Davidt PA Work Phone: [facility] Work Phone: Start: 07-28-2023 End: 07-28-2023 Patient encounter procedure PA Mario Davidt PA Work Phone: [facility] Work Phone: Start: 07-24-2023 Non-patient / Non-visit PA Mario Davidt PA Work Phone: [facility] Work Phone: Start: 07-12-2023 End: 07-12-2023 ambulatory PA Mario Wayt PA Work Phone: [facility] Work Phone: Start: 07-12-2023 End: 07-12-2023 Patient encounter procedure PA Mario Wayt PA Work Phone: [facility] [place] Start: 06-23-2023 End: 06-23-2023 Patient encounter procedure PA Mario Wayt PA Work Phone: [facility] Work Phone: Start: 11-28-2022 Telephone encounter Dave Osman MD Work Phone: [facility] Clinical Communication Comment on above: Cancelled Appointmen t (Pt cx appt for 11.29 due to not feeling well. Please call to r/s ) Start: 01-27-2022 Telephone encounter Emilia Winchester MD Work Phone: [facility] Comment on above: Preparations For Madai rafy (IOL Order Right Eye for 02/01/22 surgery) Start: 01-26-2022 Telephone encounter Emilia Winchester MD Work Phone: [facility] Comment on above: Appointment Start: 01-25-2022 Telephone encounter Emilia Winchester MD Work Phone: [facility] Comment on above: Patient Request (josh l) Start: 01-17-2022 End: 01-17-2022 Patient encounter procedure [facility] [place] Work Phone: [facility] Comment on above: 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) Start: 01-14-2022 Telephone encounter Emilia Winchester MD Work Phone: [facility] Comment on above: Appointment (A-scan reminder) Start: 12-20-2021 End: 12-20-2021 Patient encounter procedure Emilia Marroquin MD Work Phone: [facility] Comment on above: Posterior subcapsula r polar age-related cataract of right eye (Primary Dx); Nuclear senile cataract of both eyes; Prediabetes; Refractive error; Regular astigmatism of both eyes; Posterior subcapsular polar age-related cataract, right eye Start: 12-09-2021 End: 12-09-2021 Patient encounter procedure Latha Albarran MD Work Phone: [facility] Comment on above: 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, both eyes (Primary Dx); Myopia of both eyes; Regular astigmatism of both eyes Start: 11-17-2021 End: 11-17-2021 Patient encounter procedure Sissy Peterson OD Work Phone: [facility] Comment on above: Posterior subcapsula r polar age-related cataract of right eye (Primary Dx); Cataract, nuclear sclerotic, both eyes; Vitreous syneresis, bilateral Start: 06-19-2017 End: 06-19-2017 Evaluation and management of inpatient BOB FELDMAN Facility:[facility] Start: 06-06-2017 End: 06-06-2017 Ambulatory BOB FELDMAN Facility:[facility] Start: 05-15-2017 Ambulatory Errol Dove Fa cility:[facility] Procedures Date Procedure Procedure Detail Performing Clinician Start: 12-11-2024 Ecg routine ecg w/le ast 12 lds w/i&r Michael Marinelli MD Work Phone: Start: 09-19-2024 Basic metabolic pane l calcium total Janay Webster MD Work Phone: Start: 09-18-2024 Basic metabolic pane l calcium total Nelson Veliz APRN Work Phone: Start: 09-16-2024 Basic metabolic pane l calcium total Janay Webster MD Work Phone: Start: 09-12-2024 Basic metabolic pane l calcium total Janay Webster MD Work Phone: Start: 09-11-2024 Basic metabolic pane l calcium total Nelson Veliz APRN Work Phone: Start: 09-09-2024 Basic metabolic pane l calcium total Janay Webster MD Work Phone: Start: 09-07-2024 Antibody screen JANAY WEBSTER Comment on above: Order Comment: Speci men Type: BLOOD SPECIMEN Ordering Facility: [facility] Address: [address] [place] [address] Performed By: #### T SCR #### [facility] CLIA [id number] [address] [employer], [place] [address] [place] [address] [place] Start: 09-07-2024 Blood count complete automated Nelson Veliz APRN Work Phone: Start: 09-06-2024 Basic metabolic pane l calcium total Nelson Veliz CASTING MACHINE CONTROL BOARD OPERATOR Work Phone: Start: 08-31-2024 History of coronary artery bypass grafting S/P CABG (coronary artery bypass graft) Gabriela Garduno THERMOSCREW OPERATOR Work Phone: Start: 08-31-2024 Electrocardiogram AHMET TOMAS Start: 08-29-2024 Antibody screen DORA TOMSA Comment on above: Order Comment: Speci men Type: BLOOD SPECIMENOrdering Facility: [facility] Address: [address] [place] [address] Performed By: #### T SCR ####[facility] [id number] [address] Start: 08-25-2024 Antibody screen DORA TOMAS Comment on above: Order Comment: Speci men Type: BLOOD SPECIMENOrdering Facility: [facility] Address: [address] [place] [address] Performed By: #### T SCR ####[facility] [id number] [address] Start: 08-16-2024 Electrocardiogram AHMET TOMAS Start: 08-15-2024 End: 08-15-2024 Electrocardiogram EMILY TOMAS Start: 08-15-2024 Antibody screen DORA TOMAS Comment on above: Order Comment: Speci men Type: BLOOD SPECIMENOrdering Facility: [facility] Address: [address] [place] [address] Performed By: #### T SCR ####[facility] [id number] [address] Start: 07-12-2024 Prostate specific an tigen measurement Mario FISCHER Work Phone: Comment on above: This test was perfor med using the [employer] tPSA method. Measured values of a patient sample can vary depending on the testing procedure used. PSA values determined on patient samples by different testing procedures cannot be used interchangeably. If there is a change in PSA assays while monitoring therapy, sequential testing should be performed to confirm baseline values. Start: 07-12-2024 Vitamin D, 25-hydrox y measurement Mario FISCHER Work Phone: Comment on above: Vitamin D StatusDefi ciency: <20 ng/mL (50nmol/L)Insufficiency: 20-30 ng/mL (50-75 nmol/L)Sufficiency: 30-100 ng/mL (75-250 nmol/L)Toxicity: >100 ng/mL (>250 nmol/L) Start: 07-28-2023 CT of pelvis with contrast AMADO FISCHER Work Phone: Start: 01-17-2022 IOL BIOMETRY W/ IOL CALC OU (BOTH EYES) Emilia Marroquin MD Work Phone: Start: 07-27-2020 Colonoscopy Sissy Prieto er OD Work Phone: Start: 01-28-2019 Follow-up visit History of coronary artery bypass grafting S/P CABG (coronary artery bypass graft) Shantell Byrd APRN.CONTINUING EDUCATION DEAN Work Phone: History of coronary artery bypass grafting S/P CABG (coronary artery bypass graft) Shantell Byrd APRN.CONTINUING EDUCATION DEAN Work Phone: History of coronary artery bypass grafting S/P CABG (coronary artery bypass graft) Michael Marinelli MD Work Phone: Plan of Treatment Date Care Activity Detail Author Start: 08-16-2025 Hepatitis B surface antibody level LDL Cholesterol [facility] Start: 07-27-2025 Colonoscopy COLONOSCOPY [facility] Start: 07-27-2025 COLORECTAL CANCER SCREENING COLORECTAL CANCER SCREENING [facility] Start: 07-27-2025 Screening for malign ant neoplasm of colon [facility] Start: 03-14-2025 End: 03-14-2025 Patient encounter procedure 03/14/2025 11:00 AM EST Office Visit [facility] [address] [place], [place] [phone] Michael Marinelli MD [address] [place] [phone] 3 month follow up- hlk [facility] Comment on above: 3 month follow up- h lk Start: 02-15-2025 Hemoglobin A1c measurement HbA1C [facility] Start: 01-04-2025 DIABETES SCREEN DIABETES SCREEN [facility] Start: 12-16-2024 End: 12-16-2024 Patient encounter procedure [facility] [employer] [employer] DEVELOPER Comment on above: XR 1 month follow up xr ay today XR THORACIC AP/LAT/S WIMMERS Start: 12-11-2024 End: 12-11-2024 Patient encounter procedure 12/11/2024 10:00 AM EDT Office Visit [facility] [address] [place], [place] [phone] Michael Marinelli MD [address] [place] [phone] 3 month follow up, s/p CABG [facility] Comment on above: 3 month follow up, s /p CABG Start: 12-09-2024 Influenza vaccination C [facility] Start: 11-13-2024 End: 11-13-2024 Patient encounter procedure [employer] DEVELOPER Comment on above: XR fx follow up xray to day Start: 10-03-2024 End: 10-03-2024 Patient encounter procedure 10/03/2024 1:00 PM EDT Office Visit [facility] [address] [place] [address] Shantell Byrd APRN.CONTINUING EDUCATION DEAN [address] [facility] [address] [place], [place] [phone] 3-4 week F/up - discuss about starting cardiac rehab [facility] Comment on above: 3-4 week F/up - disc uss about starting cardiac rehab Start: 10-02-2024 End: 10-02-2024 Patient encounter procedure [employer] DEVELOPER Comment on above: XR THORACIC 2V AP/LA T fx follow up xray to day Start: 09-30-2024 End: 09-30-2024 Patient encounter procedure [employer] DEVELOPER Comment on above: XR THORACIC LIMITED 2V AP/LAT follow up xray today XR THORACIC AP/LAT Start: 09-25-2024 Patient referral [facility] Work Phone: Start: 09-25-2024 End: 09-25-2024 Patient encounter procedure 09/25/2024 11:00 AM EDT Office Visit [facility] [address] [place] [phone] PostletNajma harrison, CASTING MACHINE CONTROL BOARD OPERATOR.CONTINUING EDUCATION DEAN [address] [place] [address] would like to establish with urology for retension [facility] Comment on above: would like to establ jed with urology for retension Start: 09-16-2024 End: 09-16-2024 Patient encounter procedure 09/16/2024 2:00 PM EDT Office Visit [facility] [address] [place] [address] Shantell Byrd, LUH.CONTINUING EDUCATION DEAN [address] [facility] [address] [place], [place] [phone] 2 weewk p/o - s/p cabg (08/16/24 ok per MF) [facility] Comment on above: 2 weewk p/o - s/p ca bg (08/16/24 ok per MF) Start: 09-10-2024 End: 09-10-2024 Patient encounter procedure [employer] DEVELOPER Comment on above: XR THORACIC 2V AP/LA T hospital follow up F x - xray today Start: 08-26-2024 End: 08-26-2024 Cabg w/arterial graft three arterial grafts BYPASS GRAFT ARTERY CORONARY ON-PUMP THREE CORONARY ARTERIAL GRAFTS Coronary artery disease 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 pectoris (HCC) 08/26/2024 7:15 AM EDT [place] Start: 08-26-2024 End: 08-26-2024 Evaluation and management of inpatient 08/26/2024 7:15 AM EDT - 08/26/2024 2:00 PM EDT Surgery [place] [facility] [address] [place] [address] Dave Gaines MD [address] [place] [address] BYPASS GRAFT ARTERY CORONARY ON-PUMP THREE CORONARY ARTERIAL GRAFTS [facility] Comment on above: BYPASS GRAFT ARTERY CORONARY ON-PUMP THREE CORONARY ARTERIAL GRAFTS Start: 08-19-2024 End: 08-19-2024 Echo transesophag r-t 2d w/prb img acquisj i&r ECHOCARDIOGRAM TRANSESOPHOGEAL, REAL TIME W/IMAGE DOCUMENT (2D) Mitral valve disease 08/19/2024 2:27 PM EDT [facility] Start: 04-10-2024 Advance Directive Discussion Advance Directive Discussion [facility] Start: 04-10-2024 Medicare Advantage A nnual Wellness Visit Medicare Advantage Annual Wellness Visit [facility] Start: 12-10-2023 Covid-19 Vaccine () Covid-19 Vaccine () [facility] Start: 08-25-2023 Glaucoma screening Dilated Retinal E xam [facility] Start: 06-23-2023 Patient referral [facility] Work Phone: Start: 01-04-2023 End: 06-13-2023 IOL BIOMETRY W/ IOL CALC OU (BOTH EYES) IOL BIOMETRY W/ IOL CALC OU (BOTH EYES) OPHT Imaging Routine Nuclear senile cataract of both eyes Posterior subcapsular polar age-related cataract of right eye Expected: 01/04/2023, Expires: 06/13/2023 [facility] Work Phone: Comment on above: Expected: 01/04/2023 , Expires: 06/13/2023 Start: 12-09-2021 Influenza vaccination INFLUENZA (#1) [facility] Start: 10-12-2021 COVID-19 VACCINE (5 - Booster for Moderna series) COVID-19 VACCINE (5 - Booster for Moderna series) [facility] Start: 07-27-2021 Colonoscopy COLONOSCOPY [facility] Start: 07-27-2021 COLORECTAL CANCER SCREENING COLORECTAL CANCER SCREENING [facility] Start: 04-10-2021 ADVANCE DIRECTIVE DISCUSSION ADVANCE DIRECTIVE DISCUSSION [facility] Start: 04-10-2021 DEPRESSION ASSESSMENT DEPRESSION ASS ESSMENT [facility] Start: 11-24-2020 COVID-19 VACCINE (3 - Booster for Moderna series) COVID-19 VACCINE (3 - Booster for Moderna series) [facility] Start: 02-15-2020 PNEUMOCOCCAL: 65+ (1 - PCV) PNEUMOCOCCAL: 65+ (1 - PCV) [facility] Start: 2015 RSV Vaccine (1 - Ris k 60-74 years 1-dose series) RSV Vaccine (1 - Risk 60-74 years 1-dose series) [facility] Start: 2010 PROSTATE CANCER SCRE ENING DISCUSSION PROSTATE CANCER SCREENING DISCUSSION [facility] Start: 2005 SHINGRIX VACCINE (1 of 2) SCHWARZ GRIX VACCINE (1 of 2) [facility] Start: 02-15-2000 COLOGUARD (FIT-DNA) COLOGUARD (FIT-D NA) [facility] Start: 02-15-[address] COLONOGRAPHY [facility] Start: 02-15-2000 DIABETES SCREEN DIABETES SCREEN [facility] Start: 02-15-2000 FECAL OCCULT BLOOD FECAL OCCULT BLOO D [facility] Start: 02-15-2000 Screening for malign ant neoplasm of colon [facility] Start: 02-15-2000 SIGMOIDOSCOPY SIGMOIDOSCOPY [facility] Start: 1990 LIPID SCREEN LIPID SCREEN [facility] Start: 1974 Pneumococcal Vaccine : 50+ (1 of 2 - PCV) Pneumococcal Vaccine: 50+ (1 of 2 - PCV) [facility] Start: 1974 Urine microalbumin profile [facility] Start: 1973 Annual PCP Team Splicing Machine Operator Automatic maryanne Disease Visit Annual PCP Team Chronic Disease Visit [facility] Start: 1973 Anxiety Screening Anxiety Screening [facility] Start: 1973 Depression Screening Depression Scre ening [facility] Start: 1973 HEPATITIS C SCREENING HEPATITIS C [facility] Start: 1973 Hepatitis C screening Hepatitis C [facility] Start: 1967 Adult depression screening assessment DEPRESSION SCREENING [facility] Start: 1965 Diabetic foot examination Diabetic F oot Exam [facility] Start: 1965 Hepatitis B screening Urine Albumin:Creatinine Ratio [facility] Cabg w/arterial caleb t three arterial grafts BYPASS GRAFT ARTERY CORONARY ON-PUMP THREE CORONARY ARTERIAL GRAFTS Coronary artery disease 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 pectoris (HCC) [place] CBC W Auto Different ial panel - Blood [facility] CBC W Auto Different ial panel - Blood [facility] Celiac disease screen [facility] Clostridioides diffi cile DNA [Presence] in Unspecified specimen by MADELYN with probe detection [facility] Comprehensive metabo lic 2000 panel - Serum or Plasma [facility] CORNEAL TOPOGRAPHY A TLAS OU (BOTH EYES) CORNEAL TOPOGRAPHY ATLAS OU (BOTH EYES) OPHT Imaging Routine 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 cataract of both eyes 01/17/2022 8:32 AM EDT [facility] Work Phone: CORNEAL TOPOGRAPHY PENTACAM OU (BOTH EYES) CORNEAL TOPOGRAPHY PENTACAM OU (BOTH EYES) OPHT Imaging Routine 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 cataract of both eyes 01/17/2022 8:32 AM EDT [facility] Work Phone: End: 12-11-2025 Echocardiography ECHO Cardiology Routine S/P CABG (coronary artery bypass graft) Chronic systolic congestive heart failure (HCC) 1 Occurrences starting 12/11/2024 until 12/11/2025 [facility] Work Phone: Comment on above: 1 Occurrences starti ng 12/11/2024 until 12/11/2025 Lipid 1996 panel - S sima or Plasma [facility] OCT MACULA CIRRUS OU (BOTH EYES) OCT MACULA CIRRUS OU (BOTH EYES) OPHT Imaging Routine 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 cataract of both eyes 01/17/2022 8:16 AM EDT [facility] Work Phone: OUTSIDE VENDOR CARDI AC OUTPATIENT EVENT RECORDER OUTSIDE VENDOR CARDIAC OUTPATIENT EVENT RECORDER Holter Routine S/P CABG (coronary artery bypass graft) Chronic systolic congestive heart failure (HCC) SVT (supraventricular tachycardia) (HCC) Ordered: 12/11/2024 [facility] Comment on above: Ordered: 12/11/2024 Patient referral [facility] Work Phone: Prostate specific an tigen measurement [facility] Radionuclide [facility] of [facility] of [facility] under [facility] End: 11-01-2025 XR Thoracic spine AP and Lateral XR THORACIC LIMITED 2V AP/LAT Radiology Routine Fracture 1 Occurrences starting 10/02/2024 until 11/01/2025 [facility] Work Phone: Comment on above: 1 Occurrences starti ng 10/02/2024 until 11/01/2025 XR Thoracic spine AP and Lateral XR THORACIC LIMITED 2V AP/LAT Radiology Routine Closed fracture of eighth thoracic vertebra with routine healing, unspecified fracture morphology, subsequent encounter 10/02/2024 8:22 AM EDT [facility] Work Phone: [facility] Payers Date Payer Category Payer Medicare (Managed Care) LUCY [facility] [id number] 2024 Medicare [id number] 2023 Self-pay 2023 Medicare [id number] 2023 Unknown [id number] 2020 Medicare MEDICARE MEDICAR E A AND B [id number] 2020-Present [phone] [place] [address] Medicare [id number] 2020 Unknown [id number] Private Health Insurance [id number] Unknown [id number] Unknown [id number] Unknown [id number] Unknown [id number] Unknown [id number] 462 Unknown [id number] Unknown [id number] 462 Unknown [id number] 462 Unknown [id number] 462 Unknown [id number] 462 Social History Date Type Detail Facility Start: 06-06-2017 End: 12-09-2021 Tobacco smoking status MSIS Never smoked tobacco [facility] Start: 06-06-2017 End: 12-09-2021 Tobacco use and exposure Smokeless tobacco non-user [facility] Start: 11-17-2021 End: 12-11-2024 Alcohol intake Current non-drinker of alcohol (finding) [facility] Start: 1955 Sex Assigned At Not on file [facility] Start: 12-10-2021 End: 02-01-2022 Exposure to SARS-CoV-2 (event) Not sure [facility] Start: 02-18-2015 Alcohol intake Not Asked Nohelia garnica Start: 08-16-2024 End: 08-19-2024 Gender identity Not on file [facility] Work Phone: Start: 06-23-2023 [facility] Start: 1955 Sex Assigned At Male [facility] Start: 07-15-2024 Sex Male (finding) [facility] Start: 08-16-2024 End: 08-19-2024 History of Social function [facility] maryanne Work Phone: Has the [employer], [employer], or water [employer] threatened to shut off services in your home in past 12Mo No [facility] Work Phone: (I/We) worried kemar blackman (my/our) food would run out before (I/we) got money to buy more. Never true [facility] Start: 03-11-2012 In the past 12 month s, has lack of transportation kept you from medical appointments or from getting medications? No [facility] Medical Equipment Procedure Code Equipment Code Equipment Origin al Text Equipment Identifier Dates Patch Ventralex St Sepra Sorbaflex 2.5in Medium [place] Polypropylene - [id number] Start: 06-19-2017 Lens Iol Acrysof Trc3 19.0 - [id number] Start: 02-01-2022 Plate Titanium X 1.8mm Bone 8 Hole Mini Sternotomy Sternal - [id number] Start: 08-30-2024 Screw Drill-Free Maxdrive 2.3mm Titanium 13mm Bone Self Retaining Lock - [id number] Start: 08-30-2024 Pen Needle, Diab etic (Saba Pen Needle) 32 gauge x 5/32 needle Start: 10-29-2024 Pen Needle, Diab etic (Saba Pen Needle) 32 gauge x 5/32 needle Start: 10-29-2024 End: 10-29-2024 Pen Needle, Diab etic (Saba Pen Needle) 32 gauge x 5/32 needle Start: 10-29-2024 Pen Needle, Diab etic (Saba Pen Needle) 32 gauge x 5/32 needle Start: 10-29-2024 End: 10-29-2024 Goals Date Patient Goal Desired Activity /State Personal health goal Functional Status Date Assessment Result Facility 09-05-2024 Are you deaf, or do you have serious difficulty hearing No 09/05/2024 5:57 PM EDT Krystyna Sands RN No [facility] 09-05-2024 Are you blind, or do you have serious difficulty seeing, even when wearing glasses No 09/05/2024 5:57 PM EDT Krystyna Sands RN No [facility] 09-05-2024 Do you have serious difficulty walking or climbing stairs Yes 09/05/2024 5:57 PM EDT Krystyna Sands RN Yes [facility] 09-05-2024 Do you have difficul ty dressing or bathing Yes 09/05/2024 5:57 PM EDT Krystyna Sands RN Yes [facility] 09-05-2024 Because of a physica l, mental, or emotional condition, do you have difficulty doing errands alone such as visiting a physician's office or shopping Yes 09/05/2024 5:57 PM EDT Krystyna Sands RN Yes [facility] Mental Status Date Assessment Result Facility 09-05-2024 Because of a physica l, mental, or emotional condition, do you have serious difficulty concentrating, remembering, or making decisions Yes 09/05/2024 5:57 PM EDT Krystyna aSnds RN Yes [facility] Clinical Notes 06-06-2017 to 12-11-2024 Michael Marinelli MD - 12/11/2024 10:37 AM EDTPatient Shantell Ruiz APRN.CONTINUING [facility]UCATION DEAN - 10/03/2024 1:00 PM Tani Chan MD, PhD - 10/02/2024 9:00 AM EDT Note Date & Type Note Facility 12-11-2024 Note [facility] 12-11-2024 History of Present illness Narrative Images from the original note were not included. [facility] SECTION OF CARDIAC PACING and ELECTROPHYSIOLOGY OUTPATIENT VISIT DATE December 11, 2024 OUTPATIENT VISIT TYPE ESTABLISHED PRIMARY CARE PHYSICIAN: AMADO Workman [address] [address] HISTORY OF PRESENT ILLNESS: 69-year-old male with history of hypertension, diabetes, presented in August 2024 with inferior STEMI and syncope, found to have multivessel coronary disease, LVEF of 25%, underwent CABG. Had T-spine fracture from the fall as well. During hospitalization had an episode of a regular narrow complex tachycardia with likely retrograde P waves in the terminal portion of the QRS, advised to undergo EP evaluation after surgical revascularization. Mr. Maria presents for an office visit. He reports feeling well, denies chest pain, palpitation, or dizziness. He wore a back brace for 4 months and was recently cleared to discontinue it. About to start cardiac rehab. Plans to reestablish cardiology follow-up with Dr. Renteria. Not on optimal GDMT yet. ECG shows sinus rhythm at 80 beats minute with polymorphic PVCs. PAST MEDICAL HISTORY Diagnosis Date Adenomatous polyp BPH (benign prostatic hyperplasia) CAD (coronary artery disease) Delayed emergence from general anesthesia Gout PONV (postoperative nausea and vomiting) Postsurgical hypothyroidism pt does not have a PCP or duplicating machine servicer. He sees a naturopathic doctor. 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 Gaines on 08/30/24 MEDICATIONS: aspirin 81 mg chewable tablet Take 1 tablet by mouth once daily. atorvastatin (LIPITOR) 40 mg tablet Take 1 tablet by mouth once daily. insulin glargine 100 unit/mL (3 mL) Inject 40 Units subcutaneously every morning. metoprolol tartrate, short acting, (LOPRESSOR) 25 mg tablet Take 0.5 tablets by mouth every 12 hours. Hold if HR < 60 or SBP < 100 finasteride (PROSCAR) 5 mg tablet Take 5 mg by mouth. tamsulosin (FLOMAX) 0.4 mg Take 0.4 mg by mouth. thyroid, pork, 120 mg tablet Take 1 tablet by mouth once daily. insulin lispro 100 unit/mL injection Give 6 units TID with meals AND ADMINISTER CORRECTIONAL INSULIN REGARDLESS OF MEAL OR NUTRITION INTAKE Scale 2 If Blood Glucose (mg/dL) is: Less than 110 Give 0 units 111-150 Give 0 units 151-200 Give 2 unit 201-250 Give 4 units 251-300 Give 6 units 301-350 Give 8 units 351-400 Give 10 units Greater than 400 Give 10 units and Notify Provider Notify provider if 2 consecutive blood glucose values in the previous 24 hours are greater than 250 mg/dL and there have been no changes to the insulin regimen in the previous [address] (PROTONIX) 40 mg tablet Take 1 tablet by mouth daily at 6 am. (Patient not taking: Reported on 12/11/2024) methocarbamol (ROBAXIN) 500 mg tablet Take 1 tablet by mouth three times a day as needed (muscle spasms). (Patient not taking: Reported on 12/11/2024) Review of Systems Constitutional: Negative for fatigue. HENT: Negative for hearing loss. Respiratory: Negative for shortness of breath. Cardiovascular: Negative for chest pain and palpitations. Gastrointestinal: Negative for abdominal pain. Endocrine: Negative for cold intolerance. Genitourinary: Negative for hematuria. Skin: Negative for pallor. Neurological: Negative for syncope. Psychiatric/Behavioral: The patient is not nervous/anxious. PHYSICAL EXAMINATION: BP 109/70 (BP Site: Right Arm, BP Position: Sitting, BP Cuff Size: Large Adult) Pulse (!) 55 Wt 195 lb 9.6 oz (88.7 kg) SpO2 98% BMI 28.89 kg/m BP w/Orthostatic Vitals Date and Time Orthostatic BP Orthostatic Pulse BP Pulse BP Position BP Site BP Cuff Size 12/11/24 1001 -- -- 109/70 55 Sitting Right Arm Large Adult Physical Exam Constitutional: Appearance: Normal appearance. HENT: Head: Normocephalic and atraumatic. Eyes: Conjunctiva/sclera: Conjunctivae normal. Cardiovascular: Rate and Rhythm: Normal rate and regular rhythm. Pulmonary: Effort: Pulmonary effort is normal. No respiratory distress. Breath sounds: No stridor. Skin: General: Skin is dry. Coloration: Skin is not pale. Neurological: Mental Status: He is alert and oriented to person, place, and time. Psychiatric: Mood and Affect: Mood normal. I have personally reviewed the Electrocardiogram. Assessment PLAN AND RECOMMENDATIONS: ASSESSMENT/PLAN: 1. Chronic systolic congestive heart failure (HCC) - ICD9: 428.22, 428.0, ICD10: I50.22 (primary diagnosis) Status post recent surgical revascularization. LVEF is severely depressed before procedure. Will need at least 3 months of GDMT followed by LV function reassessment to determine ICD candidacy. 2. S/P CABG (coronary artery bypass graft) - ICD9: V45.81, ICD10: Z95.1 Plans to reestablish follow-up with Dr. Renteria. 3. SVT (supraventricular tachycardia) (HCC) - ICD9: 427.89, ICD10: I47.10 Episode noted during recent hospitalization. 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 Will consider an elective EP study once heart failure has been optimized. Office visit in 3 months. - OUTSIDE VENDOR CARDIAC OUTPATIENT EVENT RECORDER Michael Marinelli MD CONTACT INFORMATION: Michael Marinelli MD documented in this encounter [facility] 11-13-2024 Note [facility] 10-03-2024 Instructions Shantell Byrd APRN.[facility] - 10/03/2024 1:25 PM EDT You have done a great job recovering from you surgery, moving forward, here are the recommendations: Increase glargine (long acting) insulin to 40 units daily No meal insulin (short acting) only take sliding scale insulin as needed. Medications: please continue taking Aspirin, beta gustavo and statin for coronary artery disease. Please avoid taking NSAIDs (Aleve, Ibuprofen, Motrin, Advil, Mobic etc) Driving: Ok to drive now, when neurosurgery is clears you Cardiac Rehab: when neurosurgery is clears you [phone] ([facility]) or [phone] ([facility]) [phone] ([place] [facility], floor 1) You will have a EKG stress test before and after the cardiac rehab, which will be arranged by rehab center. Restrictions: slowly increase weight bearing in a gradual fashion (5-10 lbs increment each month) over the next 2-3 months to allow further healing, then gradually resume your normal activities depending on how you feel. Follow-ups: It is crucial to establish future appointments with your main providers, they are you septic tank installer ,and primary care doctor for medications refills/questions and future health management. Dr. Renteria Instructional Support Technician in [facility] You can follow up with cardiac surgery team on as needed basis. Please don't hesitate to contact us if you have any concerns/questions: [phone] Thanks for coming in to see me today. Shantell Byrd APRN.CONTINUING EDUCATION DEAN documented in this encounter [facility] 10-03-2024 History of Present illness Narrative HPI: Aris Atkins is a 69 year old male with a PMHx significant for DMII, hypothyroidism, and gout who presented to the ED 08/15/24 following a syncopal episode. Patient was reportedly pushing his mower in the garage when he began to feel diaphoretic, dizzy, short of breath, and was having palpitations. He then lost consciousness and was found by his who brought him to the emergency room to be evaluated. Upon evaluation, patient was experiencing mild SOB and nausea but denied chest pain. EKG without ST elevation in ER. HST was positive (peaked at 433). Pro BNP was 3,787. Patient was ruled in as an NSTEMI and patient was admitted to CVICU. He did experience an episode of SVT with which he spontaneously converted to NSR. Patient underwent LHC which revealed severe MV CAD including 99% stenosis of the mid LAD, 90% stenosis of the left circ with complete occlusion of the OM1 branch, as well as 99% mid RCA disease. Initial TTE revealed an EF of 24%. CTS was consulted for possible CABG. During the course of his workup, he was also found to have T8/T9 chalk stick fracture requiring essentially constant bracing for conservative/non-op management. The patient ultimately underwent CABG x [address] Gaines on 08/30 after extensive work-up and consultation with other specialists. Mr Guaman underwent CABG x 3 (ASHFORD-LAD, SVG-diag, SVG-PDA) with Dr. Gaines on 08/30. The patient was ultimately transferred to CVICU in stable condition on pressor support. He was extubated on time by early parameters and had an uneventful night overall. POD 2 patient received 2 units PRBC for Hgb 5.8 with subsequent improvement. The patient's chest tubes were maintained through the morning of POD 3 due to persistently high output, thus the patient has remained on bedrest to this point due to his spine fractures. POD 4 HDS off pressor support, stable on room air. He transferred to stepdown unit. On POD#6, patient was d/c'ed to Acute Rehab w/ instructions to follow up w/ both neurosurgery and CTS. Patient remains at Acute Rehab. Has been participating in rehab w/ little to no issues. Has been abiding by both neurosurgery and CTS restrictions while there. Plans for possible dc to home at the end of this week. States that he has been wearing the TLSO brace almost the entire time he has been there. He states he has not been washing his incision, as Shant Cano instructed him to not touch it. Has been covering his CT sites with occlusive drs daily given that they continue to drain. Notices that he remains swollen in his bilateral legs. Does and feels better when he attends therapy, as he did not have therapy 2 days and feels like that was a set back. States he walks around his room at rehab w/walker Aris Atkins is a 69 year old male that returns to the office today for one month post-discharge follow up. Interval events: Presented to [facility] today with . States has followed w/Neurosurgery yesterday. Pt states he is sad that he will not be able to start cardiac rehab yet. Per Neurosurgery, recommend were TLSO brace for another 6 weeks. Other then that,pt states he is feeling significantly better, states last lost a lot of water weight, feels like he should be more active and doing more. Aris Atkins reports home recovery as listed below: Discharge Post Operative Course: Palpations/LH/DZ:denies VS: reviewed per home log: BP 120/70, HR 70-80s BS: Checking BS daily, averaging 200 in am, and then 115-150s during the day. States he has been taking 32 unit(s) lantus daily w/ 6 unit lispro w/meals and SSI, is ok to start adjusting medication to take less injections WTs: Admission weight 94.8kg, current weight 90.8 (96.6), Discharge weight 102.8kg Pain scale : none, worst discomfort is from back fx Appetite:improving, states he is attempting to eat a better diet Activity:good, attempting to walk more, but would like to start to lift and do more once able Elimination:no issues Sleep:good, denies any issues Mood:improving Incisions/Wounds:healing well, states has been washing daily Subjective: Current Outpatient Medications Medication Sig bethanechol (URECHOLINE) 5 mg tablet Take 5 mg by mouth three times a day. finasteride (PROSCAR) 5 mg tablet Take 5 mg by mouth. tamsulosin (FLOMAX) 0.4 mg Take 0.4 mg by mouth. thyroid, pork, 120 mg tablet Take 1 tablet by mouth once daily. insulin lispro 100 unit/mL injection Give 6 units TID with meals AND ADMINISTER CORRECTIONAL INSULIN REGARDLESS OF MEAL OR NUTRITION INTAKE Scale 2 If Blood Glucose (mg/dL) is: Less than 110 Give 0 units 111-150 Give 0 units 151-200 Give 2 unit 201-250 Give 4 units 251-300 Give 6 units 301-350 Give 8 units 351-400 Give 10 units Greater than 400 Give 10 units and Notify Provider Notify provider if 2 consecutive blood glucose values in the previous 24 hours are greater than 250 mg/dL and there have been no changes to the insulin regimen in the previous 24 hours. methocarbamol (ROBAXIN) 500 mg tablet Take 1 tablet by mouth three times a day as needed (muscle spasms). aspirin 81 mg chewable tablet Take 1 tablet by mouth once daily. atorvastatin (LIPITOR) 40 mg tablet Take 1 tablet by mouth once daily. insulin glargine 100 unit/mL (3 mL) Inject 40 Units subcutaneously every morning. metoprolol tartrate, short acting, (LOPRESSOR) 25 mg tablet Take 0.5 tablets by mouth every 12 hours. Hold if HR < 60 or SBP < [address] (PROTONIX) 40 mg tablet Take 1 tablet by mouth daily at 6 am. sulfamethoxazole-trimethoprim (BACTRIM DS) 800-160 mg per tablet PLEASE SEE ATTACHED FOR DETAILED DIRECTIONS (Patient not taking: Reported on 10/03/2024) glucagon 1 mg/mL injection Inject 1 mg intramuscularly as needed (for hypoglycemia). No current facility-administered medications for this visit. Patient has no known allergies. PAST MEDICAL HISTORY Diagnosis Date Adenomatous polyp BPH (benign prostatic hyperplasia) CAD (coronary artery disease) Delayed emergence from general anesthesia Gout PONV (postoperative nausea and vomiting) Postsurgical hypothyroidism pt does not have a PCP or duplicating machine servicer. He sees a naturopathic doctor. 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 Gaines on 08/30/24 PAST SURGICAL HISTORY Procedure Laterality Date CABG, ARTERY-VEIN, FIVE 08/30/2024 CABG x 3 (ashford-lad, svg-diag, svg- pda;ev) with Dr. 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 Reece Charlee THYROIDECTOMY TOTAL/COMPLETE 2012 Total- removed due to nodules per pt FAMILY HISTORY Problem Relation Age of Onset Cataract Father Heart Failure Father No Ocular Disease Mother other (Cancer (colon) aunt; Breast cancer (aunt)) Other Social History Tobacco Use Smoking status: Never Smokeless tobacco: Never Vaping Use Vaping status: Never Used Substance Use Topics Alcohol use: No Drug use: No ROS-See HPI Objective: Thoracic xray: 10/02/24 Personal interpretation: Improved aeration, no further effusions or atelectasis noted Physical Examination: Vitals:BP 122/70 Pulse 76 Resp 16 Ht 5' 9 (1.75m) Wt 200 lb 3.2 oz (90.8kg) SpO2 96% BMI 29.55 kg/(m^2). Last 2 Encounter Wt Readings: Date: Wt: 09/16/2024 213 lb (96.6 kg) 08/15/2024 226 lb 9.6 oz (102.8 kg) Physical Exam Vitals reviewed. Constitutional: General: He is not in acute distress. Appearance: Normal appearance. He is normal weight. He is not ill-appearing, toxic-appearing or diaphoretic. HENT: Right Ear: External ear normal. Left Ear: External ear normal. Nose: Nose normal. Mouth/Throat: Pharynx: Oropharynx is clear. Eyes: Conjunctiva/sclera: Conjunctivae normal. Cardiovascular: Rate and Rhythm: Normal rate and regular rhythm. Pulses: Normal pulses. Heart sounds: Normal heart sounds. Comments: Pulmonary: Effort: Pulmonary effort is normal. Breath sounds: Normal breath sounds. Abdominal: General: Abdomen is flat. Palpations: Abdomen is soft. Musculoskeletal: General: No swelling or tenderness. Normal range of motion. Cervical back: Normal range of motion and neck supple. Skin: General: Skin is warm and dry. Capillary Refill: Capillary refill takes less than 2 seconds. Comments: MSI healed all edges are well approximately No s/s of infection Sternum stable w/ cough CT sites are healing well, improved significantly since last visit, no have small scabs over site, no other drainage or s/s of infection TLSO brace intact, removed by to observe incisions SVG sites: left leg, Incision with approximated edges, glue intact. no s/s of infection. Mild 1+ edema noted to leg Neurological: Mental Status: He is oriented to person, place, and time. Psychiatric: Mood and Affect: Mood normal. Behavior: Behavior normal. Assessment and Plan: CAD/NSTEMI -S/p CABG x 3 (ashford-lad, svg-diag, svg- pda;evh) with Dr. Gaines on 08/30/24 -EF 25% pre-operatively -D/c'd POD #6 (09/05/24) -Continue medical management with ASA can decrease to 81 mg daily, atorvastatin 40mg, metoprolol tartrate 12.5mg BID with hold parameters - Good post-op recovery for 1 month follow up - Ok to start driving and gradually resume normal ADLs as tolerated when cleared by neurosurgery - May increase your pushing/pulling/ lifting to <15-20 lbs for this next month, and then <25-30 pounds for the following month, then after 12 weeks from surgery, no restrictions when cleared by neurosurgery -Discontinue thoracic vest -Cardiac rehabilitation: ordered placed previously, proceed as scheduled, once cleared by neurosurgery. -Instructional Support Technician follow up appointment: scheduled for 12/11 -PCP follow up appointment in 3-4 weeks -Cardiothoracic surgery follow up with us only as needed, otherwise discharged from our service. T8/T9 chalk stick fracture -Clamshell at all times when OOB or when HOB is > 30 degrees; Clarifying with NSGY about wearing clamshell vs removing for bathing -- sent two messages to CYNDI's today without response; use bath wipes until can clarify. -Pt care per neurosurgery recommendations -Neurosurgery f/u yesterday 10/02: fx stable, cont w/brace for additional 6 wks, repeat f/u in 6 wks, Will reassess the possibility of initiating cardiac rehab during the brace weaning process in 6 weeks. Hypervolemia -Admission weight 94.8kg, current weight 96.6, Discharge weight 102.8kg -Mild OLGA during admission, resolved -Continue furosemide 40mg po daily, would benefit from increased diuresis -Continue daily weights -CXR ordered Anticipated Post-Op Respiratory Insufficiency Bilateral pleural effusions -Currently 96% on RA -Encourage mobilization, IS, cough, and deep breathing -Continue diuresis -CXR ordered -Evaluated by pulm pre op - consider PSG as outpatient Post Op Pain-stable -Continue modified ERAS with: -1000mg Tylenol q 6 -5-10 oxy IR q 4 PRN - using ~ 1-3x /day -400mg Magnesium daily -- discontinuing at discharge due to loose stool, see below -Lidocaine patches -Robaxin for back spasms Acute Blood Loss Anemia - stable -H&H currently 8.5/ (7.6/23.5) (7.4/22.7 < 7.9/23.7) -Received 2 units pRBCS on 09/01 for Hgb 5.8 -Can be monitored by PCP Transient Post-Op Hyperglycemia -Last HA1C was 7.8 -Blood glucose checked at [facility] -Current regimen: adjusted Lantus 40units daily and SSI, no lispro with meals -Discussed if BS are low then can back down on daily lantus dose. -Pt to discuss w/PCP diabetic regimen at next visit in a few weeks HLD -Continue with 40mg of atorvastatin -Followed by PCP Instructional Support Technician follow up appointment: Scheduled for 12/11 PCP follow up appointment: in the next few weeks Cardiac rehabilitation: ON hold until cleared by neurosurgery to start, likely in 6 weeks, see neurosurgery note Instructional Support Technician follow up appointment: scheduled for 12/11 PCP follow up appointment: encouraged to schedule In summary, Aris Atkins is a 69 year old male that returns to the office today for one month post-discharge follow up. Patient is doing well overall after the MV CABG surgery, with no major complaints. Patient is released to drive, work and gradually resume normal daily activities once cleared by neurosurgery. It's recommended that patient should start cardiac rehab from this point on once cleared by neurosurgery. he should follow up with his septic tank installer and PCP as scheduled, and only needs to be seen here on a as needed basis. Thanks. Electronically signed by Shantell Byrd APRN.[facility] on October 02, 2024, 8:25 PM documented in this encounter [facility] 10-03-2024 Note [facility] 10-02-2024 History of Present illness Narrative SPINE SURGERY CONSULT NOTE Tani Mendoza MD Date of visit: October 02, 2024 Patient Name: Mr.John Kevin Atkins Date of : 1955 Current Age: [age] year old Sex: male MRN/E# [id number] Last Office Visit: 09/30/2024 Chief Complaint: Patient presents with: Established Patient HPI Mr.John Kevin Atkins presented to [facility] on 08/16/24 after a syncopal fall on 08/15/24. On arrival patient was ruled in as an NSTEMI, he underwent left heart catheterization and found to have severe CAD. Cardiothoracic sx consulted, plan for CABG x3 which he underwent on 08/30/2024. Neurosurgery, Dr. Mendoza, consulted for T8/9 chalkstick fracture. Patient reported significant back pain that began following fall. He denied back pain prior to fall. Due to cardiac ischemia and planned CABG procedure, Dr. Mendoza noted high risk spinal surgery candidate and therefore recommended bracing with a clamshell. Patient was recommended to wear clamshell brace when OOB or when HOB is >30 degrees. He was discharged to longterm facility on 09/05/2024 with instructions to follow-up outpatient with neurosurgery in 2 weeks time. He presents to the office today for initial posthospitalization follow-up monitoring of T8/9 chalkstick fracture, 6.5 weeks since initial injury. Aris Atkins is a 69-year-old male presenting for follow-up of a T8/9 chalk stick fracture. Aris experienced a syncopal fall on August 15, leading to a T8/9 chalk stick fracture. He subsequently underwent triple bypass surgery and spent time in rehabilitation. He was then admitted to a longterm facility and has been home for 11 days. He reports no pain, numbness, tingling, or loss of bowel or bladder control. He does not endorse any additional falls. He mentions some weakness, which he attributes to the recent cardiac surgery. He is currently using a walker and takes Tylenol as needed. He has been wearing a brace at all times as directed but is eager to remove it to begin cardiac rehabilitation, which is currently on hold until the brace is removed. He presents for imaging review, evaluation and plan of care. Symptoms: use of walker PAIN EVALUATION No data found in the last 1 encounters. PAST MEDICAL HISTORY Diagnosis Date Adenomatous polyp BPH (benign prostatic hyperplasia) CAD (coronary artery disease) Delayed emergence from general anesthesia Gout PONV (postoperative nausea and vomiting) Postsurgical hypothyroidism pt does not have a PCP or duplicating machine servicer. He sees a naturopathic doctor. S/P CABG x 3 08/30/2024 CABG x 3 (ashford-lad, svg-diag, svg- pda;[facility]) with Dr. Gaines on 08/30/24 PAST SURGICAL HISTORY Procedure Laterality Date CABG, ARTERY-VEIN, FIVE 08/30/2024 CABG x 3 (ashford-lad, svg-diag, svg- pda;ev) with Dr. 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 Reece Charlee THYROIDECTOMY TOTAL/COMPLETE 2012 Total- removed due to nodules per pt FAMILY HISTORY Problem Relation Age of Onset Cataract Father Heart Failure Father No Ocular Disease Mother other (Cancer (colon) aunt; Breast cancer (aunt)) Other ALLERGIES No Known Allergies Current Outpatient Medications Medication Sig Dispense Refill bethanechol (URECHOLINE) 5 mg tablet Take 5 mg by mouth three times a day. finasteride (PROSCAR) 5 mg tablet Take 5 mg by mouth. tamsulosin (FLOMAX) 0.4 mg Take 0.4 mg by mouth. L. acidophilus-L. salivarius-B. bifidum-S. thermophilus (ACIDOPHILUS) 175 mg capsule TAKE 1 EACH BY MOUTH IN THE MORNING FOR 8 DAYS. sulfamethoxazole-trimethoprim (BACTRIM DS) 800-160 mg per tablet PLEASE SEE ATTACHED FOR DETAILED DIRECTIONS atorvastatin (LIPITOR) 40 mg tablet Take 1 tablet by mouth once daily. 90 tablet thyroid, pork, 120 mg tablet Take 1 tablet by mouth once daily. acetaminophen (TYLENOL) 500 mg tablet Take 2 tablets by mouth four times daily. aspirin 81 mg chewable tablet Take 2 tablets by mouth once daily for 30 days, THEN 1 tablet once daily. 420 tablet 0 folic acid 1 mg tablet Take 1 tablet by mouth once daily. furosemide (LASIX) 40 mg tablet Take 1 tablet by mouth once daily. Patient should start on September 06, 2024. 90 tablet insulin glargine 100 unit/mL (3 mL) Inject 25 Units subcutaneously every morning. (Patient taking differently: Inject 32 Units subcutaneously every morning.) insulin lispro 100 unit/mL injection Give 6 units TID with meals AND ADMINISTER CORRECTIONAL INSULIN REGARDLESS OF MEAL OR NUTRITION INTAKE Scale 2 If Blood Glucose (mg/dL) is: Less than 110 Give 0 units 111-150 Give 0 units 151-200 Give 2 unit 201-250 Give 4 units 251-300 Give 6 units 301-350 Give 8 units 351-400 Give 10 units Greater than 400 Give 10 units and Notify Provider Notify provider if 2 consecutive blood glucose values in the previous 24 hours are greater than 250 mg/dL and there have been no changes to the insulin regimen in the previous 24 hours. methocarbamol (ROBAXIN) 500 mg tablet Take 1 tablet by mouth three times a day as needed (muscle spasms). metoprolol tartrate, short acting, (LOPRESSOR) 25 mg tablet Take 0.5 tablets by mouth every 12 hours. Hold if HR < 60 or SBP < [address] (PROTONIX) 40 mg tablet Take 1 tablet by mouth daily at 6 am. polyethylene glycol 3350 17 gram packet Take 1 packet by mouth once daily. Dissolve dose in 4 - 8 ounces of liquid and take as directed. albuterol (PROVENTIL) 2.5 mg /3 mL (0.083 %) nebulizer solution Use 3 mL via nebulizer every 2 hours as needed for wheezing/shortness of breath. enoxaparin (LOVENOX) 40 mg/0.4 mL Inject 0.4 mL subcutaneously once daily. glucagon 1 mg/mL injection Inject 1 mg intramuscularly as needed (for hypoglycemia). lidocaine (SALONPAS) 4 % patch Apply 1 patch as directed once daily. Cut patch in half lengthwise and apply to either side of midsternal incision daily. Leave on x 12 hours then remove x 12 hours melatonin 3 mg tablet Take 1 tablet by mouth at bedtime as needed (insomnia). ondansetron, PF, (ZOFRAN) 4 mg/2 mL soln Inject 4 mg intravenously every 6 hours as needed for nausea/vomiting. senna-docusate (SENNA-S) 8.6-50 mg per tablet Take 2 tablets by mouth two times a day. Hold for loose stool simethicone, chewable (MYLICON) 80 mg chewable tablet Take 1 tablet by mouth four times a day as needed (gas, bloating). No current facility-administered medications for this visit. REVIEW OF SYSTEMS Review of Systems Constitutional: Negative for diaphoresis, fatigue and fever. HENT: Negative for congestion, sinus pressure and sore throat. Eyes: Negative for discharge and itching. Respiratory: Negative for cough, chest tightness and shortness of breath. Cardiovascular: Negative for chest pain, palpitations and leg swelling. Gastrointestinal: Negative for constipation, diarrhea, nausea and vomiting. Endocrine: Negative for cold intolerance and heat intolerance. Genitourinary: Negative for difficulty urinating, frequency and urgency. Musculoskeletal: Negative for back pain, gait problem, neck pain and neck stiffness. Skin: Negative for rash and wound. Allergic/Immunologic: Negative for environmental allergies and food allergies. Neurological: Positive for weakness. Negative for dizziness, light-headedness, numbness and headaches. Hematological: Does not bruise/bleed easily. Psychiatric/Behavioral: Negative for agitation. The patient is not nervous/anxious. Musculoskeletal: (+) pain with movement, (+) generalized weakness Neurological: (-) numbness, (-) tingling Genitourinary: (-) urinary incontinence OBJECTIVE: BP 120/74 Pulse 70 Resp 16 SpO2 99% PHYSICAL EXAM: General: No acute distress. MSK/Ext: Using a walker; bilateral lower extremity strength and sensation intact on my exam. Back: Wearing a clamshell brace. Data Review: MRI thoracic spine completed on 08/20/2024: IMPRESSION: Acute fracture through T8-T9 disc space, with fractures through superior aspect of the T9 vertebral body. Widening of anterior T8-T9 disc space, with disruption of anterior longitudinal ligament. Minimal vertebral body height loss at T9. No additional vertebral body height loss within thoracic spine. No convincing evidence of thoracic epidural hematoma. No convincing evidence of thoracic spinal cord compression. No significant the thoracic spinal canal stenosis. Apparent intramedullary T2 hyperintense signal within thoracic spinal cord at T9-T10 intervertebral disc level on STIR sagittal sequences is not confirmed on T2 sagittal sequence or axial T2 sequences. Although this may be artifactual, clinical correlation is recommended for any neurological symptoms. Additional findings, as detailed above. Anatomic Thoracic/Lumbar Variant: None. L4-5 is considered the level of the iliac crest and assume there are 5 lumbar-type vertebrae. X-ray thoracic spine completed on 10/02/2024: in process Myinterpretation of Imaging: - Today's X-ray: T8/9 chalk stick fracture with stable alignment; no new displacement or evidence of shifting. Assessment/Plan: 1. Fracture (T14.8XXA) - Patient sustained a T8/9 chalk stick fracture following a syncopal fall on 08/15, post-CABG surgery. - Currently using a thoracic brace; no significant pain, numbness, or tingling reported. - Physical examination reveals no neurological deficits in the lower extremities. - Recent imaging shows no evidence of vertebral displacement; fracture is stable. - Educated patient on the serious nature of the fracture and the high surgical risk due to recent cardiac surgery. - Advised continuation of brace use for an additional 6 weeks to ensure proper healing. - Follow-up appointment scheduled in 6 weeks for repeat imaging and evaluation. 2. Encounter for care involving use of rehabilitation procedure (Z51.89) - Patient has been home for 11 days post-rehabilitation. - Cardiac rehabilitation is on hold until brace removal; discussed potential for modified rehab activities. - Will reassess the possibility of initiating cardiac rehab during the brace weaning process in 6 weeks. Attestation: The following portions of the patient's history were reviewed, confirmed, and updated as necessary: allergies, current medications, past family history, past medical history, past social history, past surgical history, problem list, HPI, and ROS obtained by others. Some elements may be copied from a previous office note and have been reviewed/updated where appropriate. All portions reflect current medical decision making from today. The clinical and radiographic findings as well as the risks, benefits and alternatives of treatment have been reviewed in detail with the patient. The patient was advised to call the office if symptoms worsen or new symptoms develop. The patient expressed understanding and is in agreement with plan. Tani Mendoza MD, PhD This note was partially generated using rVue voice recognition system, and there may be some incorrect words, spellings, and punctuation that were not noted in checking the note before saving. documented in this encounter [facility] 10-02-2024 Note [facility] 10-02-2024 History of Present illness Narrative Radiology Service Progress Note PATIENT NAME: Aris Atkins DATE OF SERVICE: October 02, 2024 TIME: 8:22 AM PATIENT IDENTITY VERIFICATION COMPLETED USING TWO (2) IDENTIFIERS: Name and Date of confirmed by patient verbally. FALL SCREENING: Has the patient had 2 falls in the last year or 1 fall with injury or currently using an Ambulatory Assistive Device (Walker, Cane, Wheelchair, Crutches, etc.)? No PATIENT GENDER DATA: Assigned male at PATIENT RELEVANT IMPLANT DATA REVIEWED: Not Applicable PATIENT PRESENTS WITH AN IMPLANTABLE OR ATTACHED CLOTH PRINTING BACK TENDER: No RADIOLOGY DEPARTMENT: General X-ray: Exam(s) Completed: Spine X-Ray(s): Thoracic PERIPHERAL IV DATA: Not applicable SIGNED BY: RT Raegan(R) October 02, 2024 8:22 AM documented in this encounter [facility] 10-02-2024 Amrit Decker [facility] 09-30-2024 Telephone encounter Note Follow up appointment changed to 10/[address] Mendoza. Melina [facility] 09-30-2024 Miscellaneous Notes Follow up appointment changed to 10/[address] Mendoza. Melina documented in this encounter [facility] 09-23-2024 Telephone encounter Note LMOM to schedule office visit with wastewater supervisor 3-4 week F/up - discuss about starting cardiac rehab [facility] 09-23-2024 Miscellaneous Notes LMOM to schedule office visit with wastewater supervisor 3-4 week F/up - discuss about starting cardiac rehab documented in this encounter [facility] 09-20-2024 Telephone encounter Note Returned patients call regarding follow up appointment. Contact information left for patients to return my call to confirm the follow up day/time will work for them. Carley Tena [facility] 09-20-2024 Miscellaneous Notes Returned patients call regarding follow up appointment. Contact information left for patients to return my call to confirm the follow up day/time will work for them. Carley Tena documented in this encounter [facility] 09-16-2024 Instructions Shantell Byrd APRN.CNP - 09/16/2024 2:43 PM EDT Please attempt to leave the chest tube sites open to area as much as possible. The midsternal incision needs to be washed daily with mild soap and water, can be manually washed by hand. Please start wearing compression stocking during the day and then remove at night Continue to use incentive spirometer Continue to monitor weights daily and heart rates, blood pressures and bring with you to next appointment Should have updated Chest xray, likely would need a portable chest xray Could also benefit from extra diuresis to be below pre operative weight Please call to schedule an appointment to see us after you see the neurosurgeon. Shantell Byrd APRN.CNP [phone] documented in this encounter [facility] 09-16-2024 Telephone encounter Note Patient at appointment to see Shantell Byrd NP at 2:00 with in attendance. Eugenie Whitney LPN September 16, 2024 2:16 PM [facility] 09-16-2024 Miscellaneous Notes Patient at appointment to see Shantell Byrd NP at 2:00 with in attendance. Eugenie Whitney LPN September 16, 2024 2:16 PM Nurse Conde, [facility], , calling in leaving message on Nurse's Line stating he needed a return call prior to patient coming in today at 1400. This Nurse returned call. Nurse Conde states that he needs to give report and hand-off due to patient returning back to [facility] Cano after visit today. Nurse Conde states patient is: 69 year old mail, 1 month post-op CABG, coming in for a follow-up. Patient uses a walker, can stand and pivot, and is independent. Ax0x4. Continent of both bladder and bowel. Room Air. No complaints of pain. Patient is wearing surgical vest. Patient will be brought in by spouse. Eugenie Whitney LPN September 16, 2024 12:25 PM documented in this encounter [facility] 09-16-2024 History of Present illness Narrative HPI: Aris Atkins is a 69 year old male with a PMHx significant for DMII, hypothyroidism, and gout who presented to the ED 08/15/24 following a syncopal episode. Patient was reportedly pushing his mower in the garage when he began to feel diaphoretic, dizzy, short of breath, and was having palpitations. He then lost consciousness and was found by his who brought him to the emergency room to be evaluated. Upon evaluation, patient was experiencing mild SOB and nausea but denied chest pain. EKG without ST elevation in ER. HST was positive (peaked at 433). Pro BNP was 3,787. Patient was ruled in as an NSTEMI and patient was admitted to CVICU. He did experience an episode of SVT with which he spontaneously converted to NSR. Patient underwent LHC which revealed severe MV CAD including 99% stenosis of the mid LAD, 90% stenosis of the left circ with complete occlusion of the OM1 branch, as well as 99% mid RCA disease. Initial TTE revealed an EF of 24%. CTS was consulted for possible CABG. During the course of his workup, he was also found to have T8/T9 chalk stick fracture requiring essentially constant bracing for conservative/non-op management. The patient ultimately underwent CABG x [address] Gaines on 08/30 after extensive work-up and consultation with other specialists. Mr Guaman underwent CABG x 3 (ASHFORD-LAD, SVG-diag, SVG-PDA) with Dr. Gaines on 08/30. The patient was ultimately transferred to CVICU in stable condition on pressor support. He was extubated on time by early parameters and had an uneventful night overall. POD 2 patient received 2 units PRBC for Hgb 5.8 with subsequent improvement. The patient's chest tubes were maintained through the morning of POD 3 due to persistently high output, thus the patient has remained on bedrest to this point due to his spine fractures. POD 4 HDS off pressor support, stable on room air. He transferred to stepdown unit. On POD#6, patient was d/c'ed to [facility]hab w/ instructions to follow up w/ both neurosurgery and CTS. Patient remains at Acute Rehab. Has been participating in rehab w/ little to no issues. Has been abiding by both neurosurgery and CTS restrictions while there. Plans for possible dc to home at the end of this week. States that he has been wearing the TLSO brace almost the entire time he has been there. He states he has not been washing his incision, as [facility] Cano instructed him to not touch it. Has been covering his CT sites with occlusive drs daily given that they continue to drain. Notices that he remains swollen in his bilateral legs. Does and feels better when he attends therapy, as he did not have therapy 2 days and feels like that was a set back. States he walks around his room at rehab w/walker Aris Atkins is a 69 year old male that returns to the office today post-discharge follow up. Presents to OV today with . Interval events: Aris Atkins reports home recovery as listed below: Discharge Post Operative Course: Palpations/LH/DZ:denies VS: reviewed per home log: unknown-stable per patient WTs: Current wt 96.6 , D/C wt102.8kg, Admission weight 94.8kg, Pain scale : mild sternal pain/incision pain, more discomfort to L SVG site Appetite:good, although would be better if food at rehab was better Activity:good, improving with rehab Elimination: no issues w/BM, mild issues with urination, likely r/t TSLO brace Sleep:r/t TSLO brace Mood:normal Incisions/Wounds:See HPI Subjective: Current Outpatient Medications Medication Sig atorvastatin (LIPITOR) 40 mg tablet Take 1 tablet by mouth once daily. thyroid, pork, 120 mg tablet Take 1 tablet by mouth once daily. acetaminophen (TYLENOL) 500 mg tablet Take 2 tablets by mouth four times daily. albuterol (PROVENTIL) 2.5 mg /3 mL (0.083 %) nebulizer solution Use 3 mL via nebulizer every 2 hours as needed for wheezing/shortness of breath. aspirin 81 mg chewable tablet Take 2 tablets by mouth once daily for 30 days, THEN 1 tablet once daily. enoxaparin (LOVENOX) 40 mg/0.4 mL Inject 0.4 mL subcutaneously once daily. glucagon 1 mg/mL injection Inject 1 mg intramuscularly as needed (for hypoglycemia). folic acid 1 mg tablet Take 1 tablet by mouth once daily. furosemide (LASIX) 40 mg tablet Take 1 tablet by mouth once daily. Patient should start on September 06, 2024. insulin glargine 100 unit/mL (3 mL) Inject 25 Units subcutaneously every morning. insulin lispro 100 unit/mL injection Give 6 units TID with meals AND ADMINISTER CORRECTIONAL INSULIN REGARDLESS OF MEAL OR NUTRITION INTAKE Scale 2 If Blood Glucose (mg/dL) is: Less than 110 Give 0 units 111-150 Give 0 units 151-200 Give 2 unit 201-250 Give 4 units 251-300 Give 6 units 301-350 Give 8 units 351-400 Give 10 units Greater than 400 Give 10 units and Notify Provider Notify provider if 2 consecutive blood glucose values in the previous 24 hours are greater than 250 mg/dL and there have been no changes to the insulin regimen in the previous 24 hours. lidocaine (SALONPAS) 4 % patch Apply 1 patch as directed once daily. Cut patch in half lengthwise and apply to either side of midsternal incision daily. Leave on x 12 hours then remove x 12 hours melatonin 3 mg tablet Take 1 tablet by mouth at bedtime as needed (insomnia). methocarbamol (ROBAXIN) 500 mg tablet Take 1 tablet by mouth three times a day as needed (muscle spasms). metoprolol tartrate, short acting, (LOPRESSOR) 25 mg tablet Take 0.5 tablets by mouth every 12 hours. Hold if HR < 60 or SBP < 100 ondansetron, PF, (ZOFRAN) 4 mg/2 mL soln Inject 4 mg intravenously every 6 hours as needed for nausea/vomiting. pantoprazole DR (PROTONIX) 40 mg tablet Take 1 tablet by mouth daily at 6 am. polyethylene glycol 3350 17 gram packet Take 1 packet by mouth once daily. Dissolve dose in 4 - 8 ounces of liquid and take as directed. senna-docusate (SENNA-S) 8.6-50 mg per tablet Take 2 tablets by mouth two times a day. Hold for loose stool simethicone, chewable (MYLICON) 80 mg chewable tablet Take 1 tablet by mouth four times a day as needed (gas, bloating). No current facility-administered medications for this visit. Patient has no known allergies. PAST MEDICAL HISTORY Diagnosis Date Adenomatous polyp BPH (benign prostatic hyperplasia) CAD (coronary artery disease) Delayed emergence from general anesthesia Gout PONV (postoperative nausea and vomiting) Postsurgical hypothyroidism pt does not have a PCP or duplicating machine servicer. He sees a naturopathic doctor. 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 Gaines on 08/30/24 PAST SURGICAL HISTORY Procedure Laterality Date CABG, ARTERY-VEIN, FIVE 08/30/2024 CABG x 3 (ashford-lad, svg-diag, svg- pda;evh) with Dr. 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 Reece Charlee THYROIDECTOMY TOTAL/COMPLETE 2012 Total- removed due to nodules per pt FAMILY HISTORY Problem Relation Age of Onset Cataract Father Heart Failure Father No Ocular Disease Mother other (Cancer (colon) aunt; Breast cancer (aunt)) Other Social History Tobacco Use Smoking status: Never Smokeless tobacco: Never Vaping Use Vaping status: Never Used Substance Use Topics Alcohol use: No Drug use: No ROS-See HPI Objective: Physical Examination: Vitals:BP 110/60 Pulse 73 Ht 5' 9[patient reports[ (1.75m) Wt 213 lb (96.6kg) SpO2 99% BMI 31.44 kg/(m^2). Last 2 Encounter Wt Readings: Date: Wt: 08/15/2024 226 lb 9.6 oz (102.8 kg) 12/20/2021 220 lb (99.8 kg) Physical Exam Vitals reviewed. Constitutional: Appearance: Normal appearance. He is obese. He is not ill-appearing or diaphoretic. HENT: Head: Normocephalic. Right Ear: External ear normal. Left Ear: External ear normal. Nose: Nose normal. Mouth/Throat: Mouth: Mucous membranes are moist. Eyes: Conjunctiva/sclera: Conjunctivae normal. Cardiovascular: Rate and Rhythm: Normal rate and regular rhythm. Chest Wall: PMI is not displaced. Pulses: Radial pulses are 2+ on the right side and 2+ on the left side. Dorsalis pedis pulses are 1+ on the right side and 1+ on the left side. Heart sounds: Normal heart sounds, S1 normal and S2 normal. No murmur heard. Pulmonary: Effort: Pulmonary effort is normal. Breath sounds: Normal breath sounds. Abdominal: General: Abdomen is flat. Bowel sounds are normal. Palpations: Abdomen is soft. Musculoskeletal: General: Normal range of motion. Right lower leg: Edema (2+) present. Left lower leg: Edema (2+) present. Skin: General: Skin is warm and dry. Capillary Refill: Capillary refill takes less than 2 seconds. Comments: MSI: egdes well approximated. glue intact. unable to test sternum stability d/t anterior portion of brace off. No s/s of infection noted SVG sites: left leg, Incision with approximated edges, glue intact. no s/s of infection. Mild 1+ edema noted to leg CT sites: removed occlusive dressing, moderate amount of serosanguinous drainage noted. Cleansed site with betadine, cut suture and removed, redressed w/ occlusive dressing No s/s of infection noted Wearing TSLO brace Neurological: General: No focal deficit present. Mental Status: He is alert and oriented to person, place, and time. Psychiatric: Mood and Affect: Mood normal. Behavior: Behavior normal. Assessment and Plan: CAD/NSTEMI -S/p CABG x 3 (ashford-lad, svg-diag, svg- pda;evh) with Dr. Gaines on 08/30/24 -EF 25% pre-operatively -D/c'd POD #6 (09/05/24) -Continue medical management with ASA 162mg x 30 days then decrease to 81 mg daily, atorvastatin 40mg, metoprolol tartrate 12.5mg BID with hold parameters - Pt doing well overall - Pain controlled; continue ERAS - Continue HH diet; reinforced low NA diet and 2Liter fluid restriction, daily weight monitoring - Continue thoracic vest and sternal precautions (no lifting, pushing, pulling > 10 lbs. No driving) - Continue TEDs and BLE elevation while in bed or chair - Continue IS, VNS, mobilization - Outpt cardiac rehab in 1 month: orders placed-on hold for now,pt NOT cleared to start - Follow-up after seen by Neurosurgery and d/c'd from [facility] with CXR prior - Follow-up with [facility] as previously scheduled T8/T9 chalk stick fracture -Clamshell at all times when OOB or when HOB is > 30 degrees; Clarifying with NSGY about wearing clamshell vs removing for bathing -- sent two messages to CYNDI's today without response; use bath wipes until can clarify. -Log roll for all patient care. -Neuro checks. -Neuro spine has signed off for now. Outpatient follow up arranged for 09/10/24-pt missed -Has not followed with Neurosurgery yet, encouraged to set up f/u appt MIRIAM OLGA-resolved -Baseline creatinine 1-1.1 -Cr 1.25 (1.56 < 1.47). Stable. -Lasix 40 mg po daily Hyponatremia -137 (129, 128) -4 gm sodium restriction (liberated from 2 gm) -Continue diuresis -Fluid restriction Hypervolemia -Admission weight 94.8kg, current weight 96.6, Discharge weight 102.8kg -Mild OLGA during admission, resolved -Continue furosemide 40mg po daily, would benefit from increased diuresis -Continue daily weights -CXR ordered Anticipated Post-Op Respiratory Insufficiency Bilateral pleural effusions -Currently 96% on RA -Encourage mobilization, IS, cough, and deep breathing -Continue diuresis -CXR ordered -Evaluated by pulm pre op - consider PSG as outpatient Post Op Pain-stable -Continue modified ERAS with: -1000mg Tylenol q 6 -5-10 oxy IR q 4 PRN - using ~ 1-3x /day -400mg Magnesium daily -- discontinuing at discharge due to loose stool, see below -Lidocaine patches -Robaxin for back spasms Acute Blood Loss Anemia - stable -H&H currently 8.09/03 (7.6/23.5) (7.4/22.7 < 7.9/23.7) -Received 2 units pRBCS on 09/01 for Hgb 5.8 -Continue to monitor Transient Post-Op Hyperglycemia -Last HA1C was 7.8 -Blood glucose checked at [facility] -Current regimen: Lantus 25 units daily, lispro 6 units TID with meals and SSI Hx of ileus this admission-resolved No further issues -Managed conservatively -Initially today felt bloated/uncomfortable with distended firm lower abdomen for which KUB ordered -Later upon reassessment, had several Lg soft BM's and abdomen soft, nt/nd so KUB cancelled -This evening, patient reports frequent loose bowel movements and incontinence, will de escalate bowel regimen and monitor closely -- hold senna if loose stool, continue miralax, and dc magnesium oxide -Simethicone available for bloating. -Monitor closely. HLD -Continue with 40mg of atorvastatin -Followed by PCP Patient to follow up with CTS service AFTER neurosurgery visit. Need to have updated restrictions from neurosurgery to know what patient's next steps are after cardiac surgery. Holding off on cardiac rehab until have update Instructed both patient and to call or mychart message with any questions or concerns. Instructional Support Technician follow up appointment: Scheduled for 12/11 PCP follow up appointment: Encourage pt to schedule In summary, Aris Atkins is a 69 year old male that returns to the office today for one week post-discharge follow up. Patient is doing well overall after the MV CABG surgery, with no major complaints. We would like to have patient follow up in 3-4 weeks with CXR order, we would also like to discuss about starting cardiac rehab at the next visit. Electronically signed by Shantell Byrd APRN.CNP on September 16, 2024, 5:07 PM documented in this encounter [facility] 09-16-2024 Note [facility] 09-16-2024 Telephone encounter Note Nurse Conde, [facility], , calling in leaving message on Nurse's Line stating he needed a return call prior to patient coming in today at 1400. This Nurse returned call. Nurse Conde states that he needs to give report and hand-off due to patient returning back to [facility] after visit today. Nurse Elton states patient is: 69 year old mail, 1 month post-op CABG, coming in for a follow-up. Patient uses a walker, can stand and pivot, and is independent. Ax0x4. Continent of both bladder and bowel. Room Air. No complaints of pain. Patient is wearing surgical vest. Patient will be brought in by spouse. Eugenie Whitney LPN September 16, 2024 12:25 PM [facility] 09-09-2024 Telephone encounter Note Pt currently at [facility] and prefers [facility] for [facility] Rehab when appropriate. Forward to [facility] scheduling pool. [facility] 09-09-2024 Miscellaneous Notes Pt currently at [facility] and prefers [facility] for Cardiac Rehab when appropriate. [facility] to [facility] scheduling pool. Left message for patient regarding Cardiac Rehab. Trying to determine which location is closest for patient Encouraged patient to call and schedule orientation at [phone] option 1. documented in this encounter [facility] 09-09-2024 Telephone encounter Note Left message for patient regarding Cardiac Rehab. Trying to determine which location is closest for patient Encouraged patient to call and schedule orientation at [phone] option 1. [facility] 09-05-2024 Note [facility] 09-04-2024 Note [facility] 09-03-2024 Note [facility] 09-02-2024 Note [facility] 09-02-2024 Note [facility] 09-02-2024 Note [facility] 09-01-2024 Note [facility] 09-01-2024 Note [facility] 08-31-2024 Note [facility] 08-31-2024 Note [facility] 08-30-2024 Note [facility] 08-30-2024 Note [facility] 08-30-2024 Note [facility] 08[facility]30-2024 Note [facility] 08-30-2024 Note [facility] 08-29-2024 Note [facility] 08-29-2024 Note [facility] 08-28-2024 Note [facility] 08-27-2024 Note [facility] 08-27-2024 Note [facility] 08-27-2024 Note [facility] 08-26-2024 Note [facility] 08-26-2024 Telephone encounter Note Spoke with patient about test results. Patient about test results. Patient verbalizes understanding. Shantell Nichole LPN [facility] 08-26-2024 Miscellaneous Notes Spoke with patient about test results. Patient about test results. Patient verbalizes understanding. Shantell Nichole LPN ----- Message from Ki Ch MD sent at 08/26/2024 12:20 PM EDT ----- Can you please let Mr. Atkins know that his CBC revealed normal blood counts. Thanks, Ki Ch MD documented in this encounter [facility] 08-26-2024 Telephone encounter Note ----- Message from Ki Ch MD sent at 08/26/2024 12:20 PM EDT ----- Can you please let Mr. Atkins know that his CBC revealed normal blood counts. Thanks, Ki Ch MD [facility] 08-26-2024 Note [facility] 08-25-2024 Note [facility] 08-25-2024 Note [facility] 08-25-2024 Note HNO ID: [id number] Author: NOTE, INTERFACE, ? Service: ? Author Type: ? Type: Progress Notes Filed: 08/25/2024 02:54 Note Text: Epic Scheduled Downtime: 08/25/2024 1:00:00 AM to 08/25/2024 2:37:00 AM [facility] 08-24-2024 Note [facility] 08-24-2024 Note [facility] 08-24-2024 Note HNO ID: [id number] Author: NOTE, INTERFACE, ? Service: ? Author Type: ? Type: Progress Notes Filed: 08/24/2024 03:47 Note Text: Epic Scheduled Downtime: 08/24/2024 1:00:00 AM to 08/24/2024 3:39:00 AM [facility] 08-23-2024 Note [facility] 08-23-2024 Note [facility] 08-22-2024 Note [facility] 08-22-2024 Note [facility] 08-22-2024 Note [facility] 08-21-2024 Note [facility] 08-21-2024 Note [facility] 08-21-2024 Note [facility] 08-21-2024 Note [facility] 08-21-2024 Note [facility] 08-20-2024 Note [facility] 08-20-2024 Note [facility] 08-19-2024 Note [facility] 08-19-2024 Note [facility] 08-19-2024 Telephone encounter Note Follow up(s) scheduled. Patient to be notified upon discharge. Dee Mena [facility] 08-19-2024 Miscellaneous Notes Follow up(s) scheduled. Patient to be notified upon discharge. 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 Michael Marinelli MD [facility] Work Phone: 08-16-2024 Note [facility] 08-16-2024 Note [facility] 08-15-2024 Note [facility] 08-15-2024 Note [facility] 08-15-2024 Note [facility] 08-09-2024 Evaluation note Diagnosis Onset Date Resolution Diabetes type 2, uncontrolled acute August 09, 2024 7: 48am Dizziness acute August 09, 2024 7:48am Old myocardial infarct acute Ma y 2024 7:48am CAD, multiple vessel acute September 25, 2024 12:35pm Diabetes type 2, uncontrolled acute September 25, 2024 12:35pm Elevated blood pressure reading acute September 25, 2024 12:35pm Urinary tract disorder acute Ju ne 2024 12:35pm CAD, multiple vessel acute October 16, 2024 3:54pm Diabetes type 2, uncontrolled acute October 16, 2024 3 :54pm Elevated blood pressure reading acute October 16, 2024 3 :54pm Urinary tract disorder acute Ju ly 2024 3:54pm Urinary tract disorder acute Au konrad 2024 12:38pm [facility] Work Phone: 1(792) 624-126005-02-2025 Evaluation note* Diagnosis Onset Date Resolution Status Admit Date Diabetes type 2, uncontrolled acute August 09, 2024 7:48am Dizziness acute August 09, 2024 7:48am Old myocardial infarct acute Ma y 2024 7:48am CAD, multiple vessel acute September 25, 2024 12:35pm Diabetes type 2, uncontrolled acute September 25, 2024 12:35pm Elevated blood pressure reading acut e September 25, 2024 12:35pm Urinary tract disorder acute Ju ne 2024 12:35pm CAD, multiple vessel acute October 16, 2024 3:54pm Diabetes type 2, uncontrolled acute October 16, 2024 3:54pm Elevated blood pressure reading acut e October 16, 2024 3:54pm Urinary tract disorder acute Ju ly 2024 3:54pm CAD, multiple vessel acute Augu st 2024 12:38pm Diabetes type 2, uncontrolled acute November 15, 2024 12:38pm Urinary tract disorder acute Au konrad 2024 12:38pm Diarrhea acute December 06 2:22pm [facility] Work Phone: 1(925) 869-896204-02-2025 Evaluation note* Diagnosis Onset Date Resolution Status Admit Date Diabetes type 2, uncontrolled acute July 10, 2024 10:17am Elevated blood pressure reading acut e July 10, 2024 10:17am Encounter for screening for malignant neoplasm of prostate acute A pril 2024 10:17am History of gout acute July 10:17am Diabetes type 2, uncontrolled acute August 09, 2024 7:48am Dizziness acute August 09, 2024 7:48am Old myocardial infarct acute Ma y 2024 7:48am [facility] Work Phone: [phone]) [phone] Evaluation note* Diagnosis Onset Date Resolution Status Admit Date Diabetes type 2, uncontrolled acute July 10, 2024 10:17am Elevated blood pressure reading acut e July 10, 2024 10:17am Encounter for screening for malignant neoplasm of prostate acute A pril 2024 10:17am History of gout acute July 10:17am Diabetes type 2, uncontrolled acute August 09, 2024 7:48am Dizziness acute August 09, 2024 7:48am Old myocardial infarct acute Ma y 2024 7:48am CAD, multiple vessel acute September 25, 2024 12:35pm Diabetes type 2, uncontrolled acute September 25, 2024 12:35pm Elevated blood pressure reading acut e September 25, 2024 12:35pm Urinary tract disorder acute Ju 2024 12:35pm [facility] Work Phone: 1(217) 342-326901-03-2025 Evaluation note* Diagnosis Onset Date Resolution Status Admit Date Diabetes type 2, uncontrolled acute April 12, 2024 10:55am Elevated blood pressure reading acut e April 12, 2024 10:55am Diabetes type 2, uncontrolled acute July 10, 2024 10:17am Elevated blood pressure reading acut e July 10, 2024 10:17am Encounter for screening for malignant neoplasm of prostate acute A pril 2024 10:17am History of gout acute July 10:17am [facility] Work Phone: 1(276) 869-286908-21-2023 Telephone encounter Note* Telephone Encounter - Endy Peterson - 11/28/2022 7:35 AM EDT Preferred contact number: [phone] Reason for Visit: Pt cx appt for 8.22 due to not feeling well. Please call to r/s Message in ecw Urgency of Appointment: n/a Medications in need of refill: n/a [id number] Miscellaneous Notes* Telephone Encounter - Endy Peterson - 11/28/2022 7:35 AM EDT Preferred contact number: [phone] Reason for Visit: Pt cx appt for 11.29 due to not feeling well. Please call to r/s Message in ecw Urgency of Appointment: n/a Medications in need of refill: n/a documented in this [facility]10-20-2022 Miscellaneous Notes* Telephone Encounter - Chanelle Arzate - 01/27/2022 12:40 PM EDT INTRAOCULAR LENS ORDER ATTN: [facility] PATIENTS NAME: Aris Atkins SURGERY DATE: 02/01/2022 EYE: OD SURGEON: Emilia Deshpande MD LENS: TORIC LIFE SCIENCE TECHNICIAN: Khang MODEL: [id number] POWER: + 19.00 ADDITIONAL NOTES: TORIC / ORA documented in this [facility]-2022 Miscellaneous Notes* Telephone Encounter - Ryder Raines - 01/26/2022 11:10 AM EDT Attempted to contact patient to inform to arrive at [address] [place] [address] at 10:55 am for 02/01/22 surgery with Emilia Deshpande MD, to refrain from eating or drinking for 8 hours prior to arrival for surgery, except for up to 12 oz of clear liquids up until 08:55 am, and to begin the eyedrops in the right eye on 01/30/22. Left message on machine to call with any questions or concerns. documented in this [facility]10-18-2022 Miscellaneous Notes* Telephone Encounter - Brook Shafer - 01/25/2022 3:09 PM EDT Received call from patient. Wants a call back when we receive his preop notes from his primary carephysician. documented in this encounterUniversity [facility]-2022 Miscellaneous Notes* Telephone Encounter - Chanelle Arzate - 01/14/2022 2:43 PM EDT Left voicemail to remind patient of appointment in our [place] office at [address] [place] [address], [address],on 01/17/22 at 8:00 a.m. Advised that contact lens wearers must be out of contacts for at least twoweeks before this appointment and to call back at [phone] to let us know when scheduled with primary care for the pre op physical exam. documented in this encounterUniversity [facility]als [facility] System09-12-2022 Instructions* Patient Instructions* Emilia Marroquin MD - 12/20/2021 8:38 AM EDT Pre-Operative Instructions for patients of Dr. Emilia Marroquin You are going to be scheduled for cataract surgery. The surgery scheduling team will call you in about 2 to 3 weeks to find dates and coordinate your appointments with you. Dr. Marroquin does her surgeries on certain Tuesdays and . You will need a funeral car driver the day of surgery. Please look at your personal schedule and your drivers schedule and select a few days approximately 3 to 4 weeks out that would work for you. Dr Linette Deshpande has sent in prescriptions to your pharmacy for eye drops that you will use. Do not pick them up until you hear from the parks recreation coordinator as to the date of your surgery. You will notbegin them until 2 days prior to your surgery date. 2 days prior to surgery start: Prednisolone Acetate-use one drop four times a day In operative eye Gatifloxacin, Moxifloxacin, OR Polytrim( you will be prescribed only one of the three )- use one drop four times each day in operative eye Ketorolac ( if you did not receive this one it is due to a cross allergy and you will only have theabove two drops)- use one drop four times each day in operative eye You may use the drops in any order, but close your eye for 5 minutes after each drop. Continue to use any previous eye drops unless instructed otherwise. Day of Surgery: Do not eat or drink anything 8 hours prior to procedure time. Take all of your morning medication with only enough water to swallow them unless instructed otherwise by Dr. Marroquin or Primary Care physician. Get one drop of each in the operative eye prior to arriving at the surgery center. After your surgery: Do not remove your eye shield at home, except to instill your medication eye drops. Your eye shieldwill be removed in the office the following day. No heavy lifting or bending from the waist. Limit your activity. Avoid bumping or rubbing the operative eye. Restart your eye drops the night of surgery, get at least 2 or 3 sets of each in that evening and use the drops four times a day beginning the day after surgery. Call the office if you have any questions or concerns at If the call is after business hours you will automatically connect with the answering service and they will contact your doctor as needed. 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 I recommend follow up in one year for repeat evaluation. I stressed good Diabetes Mellitus control to avoid loss of vision. Cataract Presurgical Documentation Cataract: Right eye (OD) Current Visual Acuity Right Eye Distance CC 20/50 Left Eye Distance CC 20/25 Glare Testing: Visual Function: Aris Atknis states that the decline in vision from the cataract impedes his abilities as listed in the HPI, as well as other activities of daily living. Aris Brown has confirmed that he is no longer able to function adequately on a day-to-day basis because of his current visual condition. Further, it is my medical opinion that the cataract is the primary cause, or at least a significantly contributory cause of his visual dysfunction. With uncomplicated cataract surgery and lens implantation, it is my expectation that his visual function and quality of life will improve, significantly. The risks, benefits, alternatives, personnel and complications of cataract surgery with lens implantation were discussed with Aris Atkins in detail. he appeared to understand and asked that I proceedwith plans for surgery. Offered traditional vs toric for distance. Patient would like to do toric Intraocular lens Right eye for distance. Will also need intracameral lidocaine and phenylephrine and antibiotic Both eyes The patient was offered a surgery/procedure at a [facility]. The surgeon/proceduralist and patient have discussed in detail the risk of exposure to and/or potential harm posed by the COVID-19 virus with having a surgery/procedure at this time versus the risk of delaying the surgery/pr ocedure. It is not possible to know either the risk of delaying the surgery or procedure or chance of getting an infection with perfect accuracy, but a joint decision was made between the patient andthe surgeon/proceduralist to proceed at this time with the scheduled surgery/procedure as indicatedon the consent form. I have confirmed and edited as necessary the relevant ophthalmic history, ROS, and the neuro exam findings as obtained by others. I have seen and examined Aris Atkins. I have discussed the case and the management of this patient's care with the Resident/Fellow, if applicable. I also have reviewed and agree with the assessment and plan as stated above and agree withall of its relevant components. Emilia Deshpande MD documented in this encounterUniversity Hospitals Health System09-01-2022 Miscellaneous Notes* Addendum Note - Latha Albarran MD - 12/09/2021 9:55 AM EDTAddended by: LATHA ALBARRAN on: 12/09/2021 09:55 AM Modules accepted: Orders documented in this encounterUniversity Hospitals Health System09-01-2022 History of Present illness Narrative* Latha Albarran MD - 12/09/2021 8:49 AM EDT Assessment and Plan 1. Combined form of age-related cataract, both eyes Cataract Presurgical Documentation Cataract: Right eye (OD) Current Visual Acuity Right Eye Distance CC 20/50 Left Eye Distance CC 20/20 Glare Testing: Right Eye Off 20/50 Right Eye Low 20/70 Right Eye Medium 20/80 Right Eye High 20/125 Left Eye Off 20/20 Left Eye Low 20/20 Left Eye Medium 20/20 Visual Function: Aris Atkins states that the decline in vision from the cataract impedes his abilities as listed in the HPI, as well as other activities of daily living. Aris Atkins has confirmed that he is no longer able to function adequately on a day-to-day basis because of his current visual condition. Further, it is my medical opinion that the cataract is the primary cause, or at least a significantly contributory cause of his visual dysfunction. With uncomplicated cataract surgery and lens implantation, it is my expectation that his visual function and quality of life will improve, significantly. The risks, benefits, alternatives, personnel and complications of cataract surgery with lens implantation were discussed with Aris Atkins in detail. he appeared to understand and asked that I proceedwith plans for surgery. 2. Myopia of both eyes 3. Regular astigmatism of both eyes -wears glasses for distance Plan: Cataract: Right eye (OD) Aim -0.25 [id number] power + Flomax N Diabetes N Glaucoma N Astigmatism Possible. Will need to check Pentacam and call patient Refractive surgery N Fuchs N Trypan blue N Malyugin ring N Other N/A I have confirmed and edited as necessary the relevant ophthalmic history, ROS, and the neuro exam findings as obtained by others. I have seen and examined Aris Atkins. I have discussed the case and the management of this patient's care with the Resident/Fellow, if applicable. I also have reviewed and agree with the assessment and plan as stated above and agree withall of its relevant components. Latha Albarran MD December 09, 2021 8:49 AM documented in this encounterUniversity Hospitals Health System09-01-2022 Instructions* Patient Instructions* Latha Albarran MD - 12/09/2021 8:49 AM EDT Images from the original note were not included. Pre-Op Instructions for patients of Dr. Latha Albarran 2 days prior to surgery start: Prednisolone acetate-use one drop four times a day in operative eye Moxifloxacin- use one drop four times each day in operative eye Ketorolac - use one drop four times each day in operative eye You may use the drops in any order, but close your eye for 5 minutes after each drop. Continue to use any previous eye drops unless instructed otherwise. Day of Surgery: Do not eat or drink anything 8 hours prior to procedure time. Take all of your morning medication with only enough water to swallow them unless instructed otherwise by Dr. Albarran or Primary Care physician. Get one drop of Moxifloxacin and Ketorolac in the operative eye prior to arriving at the surgery center. After your surgery: Do not remove your eye shield at home, except to instill your medication eye drops. Your eye shieldwill be removed in the office the following day. No heavy lifting or bending from the waist. Limit your activity. Avoid bumping or rubbing the operative eye. You will be given instructions in the surgery center about starting the three eyedrops after surgery. Call the office if you have any questions or concerns at , option 1. If the call is after business hours you will automatically connect with the answering service and they will contact your doctor as needed documented in this encounterUniversity Hospitals Health System08-10-2022 History of Present illness Narrative* Sissy Nicholas, OD - 11/17/2021 2:29 PM EDT Assessment/Plan: 1. Posterior subcapsular polar age-related cataract of right eye Patient educated on exam findings and condition; discussed in detail with patient option of cataract surgery evaluation vs monitoring, patient wishes to purse CE evaluation; discussed importance of strict follow up for pre and post op appts with using eye drops as directed. Refer for next availableCE evaluation. Return to optometry clinic as directed by surgeon. 2. Cataract, nuclear sclerotic, both eyes See plan 1 3. Vitreous syneresis, bilateral Patient educated on exam findings and condition; educated patient on symptoms and signs of retinal detachment and to RTC stat with sudden shower of floaters, flashes, or black curtain coming down/over vision OU. Monitor 1 year or sooner PRN changes. Sissy Peterson, SHAMA RTC cataract evaluation OD documented in this encounter[facility]22 Instructions* Patient Instructions* Sissy Peterson OD - 11/17/2021 2:29 PM EDT Images from the original note were not included. documented in this encounterUniversity [facility]als [facility] System02-27-2018 History of Past illness Narrative* Problem Noted Date Resolved Date Umbilical hernia without obstruction or gangrene 06/06/2017 06/19/2017 Overview: Added automatically from request for surgery [id number] documented as of this encounter (statuses as of 11/17/2021) [facility] of Past illness Narrative* Problem Noted Date Resolved Date Umbilical hernia without obstruction or gangrene 06/06/2017 06/19/2017 Overview: Added automatically from request for surgery [id number] documented as of this encounter (statuses as of 12/09/2021) [facility] History of Past illness Narrative* Problem Noted Date Resolved Date Umbilical hernia without obstruction or gangrene 06/06/2017 06/19/2017 Overview: Added automatically from request for surgery [id number] documented as of this encounter (statuses as of 12/20/2021) [facility] History of Past illness Narrative* Problem Noted Date Resolved Date Umbilical hernia without obstruction or gangrene 06/06/2017 06/19/2017 Overview: Added automatically from request for surgery [id number] documented as of this encounter (statuses as of 01/14/2022) [facility] of Past illness Narrative* Problem Noted Date Resolved Date Umbilical hernia without obstruction or gangrene 06/06/2017 06/19/2017 Overview: Added automatically from request for surgery [id number] documented as of this encounter (statuses as of 01/17/2022) [facility] of Past illness Narrative* Problem Noted Date Resolved Date Umbilical hernia without obstruction or gangrene 06/06/2017 06/19/2017 Overview: Added automatically from request for surgery [id number] documented as of this encounter (statuses as of 01/26/2022) [facility] of Past illness Narrative* Problem Noted Date Resolved Date Umbilical hernia without obstruction or gangrene 06/06/2017 06/19/2017 Overview: Added automatically from request for surgery [id number] documented as of this encounter (statuses as of 01/27/2022) [facility] History of Past illness Narrative* Problem Noted Date Resolved Date Umbilical hernia without obstruction or gangrene 06/06/2017 06/19/2017 Overview: Added automatically from request for surgery [id number] documented as of this encounter (statuses as of 02/17/2022) [facility]* Diagnosis Posterior subcapsular polar age-related cataract of right eye- Primary Posterior subcapsular polar senile cataract Cataract, nuclear sclerotic, both eyes Senile nuclear sclerosis Vitreous syneresis, bilateral [facility] Combined form of age-related cataract, both eyes- Primary Myopia of both eyes Myopia Regular astigmatism of both eyes Regular astigmatism [facility] Diagnosis Posterior subcapsular polar age-related cataract of right eye- Primary Posterior subcapsular polar senile cataract Nuclear senile cataract of both eyes Prediabetes Other abnormal glucose Refractive error Unspecified disorder of refraction and accommodation Regular astigmatism of both eyes Regular astigmatism Posterior subcapsular polar age-related cataract, right eye [facility] Diagnosis 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 cataract of both eyes- Primary Cortical senile cataract Regular astigmatism of right eye Regular astigmatism Posterior subcapsular polar age-related cataract, right eye documented in this encounter [facility]* Diagnosis Onset Date Resolution Status Diabetes type 2, uncontrolled acute History of gout acute Brittanie-rectal abscess acute [facility] Work Phone: Evaluation note* Diagnosis Coronary artery disease 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 pectoris (HCC)- Primary Coronary artery disease 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 pectoris (HCC) documented in this encounter [facility]* Diagnosis Coronary artery disease 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 pectoris (HCC)- Primary S/P CABG (coronary artery bypass graft) Postsurgical aortocoronary bypass status Closed fracture of eighth thoracic vertebra with routine healing, unspecified fracture morphology, subsequent encounter Closed fracture of ninth thoracic vertebra with routine healing, unspecified fracture morphology, subsequent encounter Hypervolemia, unspecified hypervolemia type documented in this encounter [facility]* Diagnosis Fracture- Primary Closed fracture of unspecified bone Encounter for care involving use of rehabilitation procedure documented [facility] this encounter [facility]* Diagnosis Closed fracture of eighth thoracic vertebra with routine healing, unspecified fracture morphology, subsequent encounter [facility] Diagnosis Coronary artery disease 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 pectoris (HCC)- Primary S/P CABG (coronary artery bypass graft) Postsurgical aortocoronary bypass status documented [facility] this encounter [facility]* Diagnosis Disorder of urinary system- Primary Unspecified disorder of urethra and urinary tract documented in this encounter [facility]* Diagnosis Chronic systolic congestive heart failure (HCC)- Primary Chronic systolic heart failure S/P CABG (coronary artery bypass graft) Postsurgical aortocoronary bypass status SVT (supraventricular tachycardia) (HCC) Other specified cardiac dysrhythmias documented in this encounter [facility] Discharge instructionsAmbulatory Orders* Urology Location: None [facility] Work Phone: Reason for referral (narrative)No reason for referral information availableWFostoria City Hospital Work Phone: Reason for visit Narrative* Auth/Cert - New Request Specialty Diagnoses / Procedures Referred By Jose A michelle Referred To Contact [facility] [address] [place] [address] Referral ID Status Reason Start Date Expiration Date V isits Requested Visits Authorized New Request 09/06/2024 11/05/2024 [facility] N[facility]ative* Diagnostic Procedure Only (Routine) - Closed Specialty Diagnoses / Procedures Referred By Contac t Referred To Contact XR IMAGING Diagnoses Closed fracture of eighth thoracic vertebra with routine healing, unspecified fracture morphology, subsequent encounter Procedures XR THORACIC LIMITED 2V AP/LAT RADEX SPINE THORACIC 2 VIEWS Mahendra Dent PA-C [address] [place] [address] Phone: tel: fax: [place] [id number] Referral ID Status Reason Start Date Expiration Date V isits Requested Visits Authorized [id number] Closed Auto-Generate d Referral 08/23/2024 09/22/2025 1 1 [facility] Summary Purpose Family History No Family History Records Found Relationship Condition Age at Onset Recorded Date/T marlin father Malignant neoplasm of colon Unknown Diabetes mellitus Unknown Hypertension Unknown Disorder of thyroid Unknown Advance Directives No Advanced Directives Records Found Date Activated Date Inactivated Comments 08/15/2024 9:47 PM 09/05/2024 10:04 PM Question Answer Comments Full Code Order Discussed With: Patient Date Activated Date Inactivated Comments 08/15/2024 9:47 PM Date Activated Date Inactivated Comments 08/15/2024 9:47 PM 09/05/2024 10:04 PM Question Answer Comments Full Code Order Discussed With: Patient Medications Administered Section Active Administered Medications - up to 3 most recent administrations Medication Order MAR Action Action Date Dose Rate Site fluorescein-benoxinate 0.25-0.4 % 1 Drop (FLURESS) 1 Drop, BOTH EYES, DIRECTED, Starting on Mon11/17/21 at 1346, Until Magalis 11/18/21 at 0145, Administer for applanation tonometry. In the event of a Fluress shortage, administer Kamala-Fluor 1 drop into both eyes as directed for applanation tonometry, [facility] MED ORDERS Given 11/17/2021 2:01 PM EDT 1 Drop PHENYLephrine 2.5 % 1 Drop (AK-DILATE, MARIA DE JESUS-SYNEPHRINE) 1 Drop, BOTH EYES, DIRECTED, Starting on Mon11/17/21 at 1346, Until Mon11/18/21 at 0145, Administer for dilation PROTECT FROM LIGHT, [facility] MED ORDERS Given 11/17/2021 2:01 PM EDT 1 Drop tropicamide 1 % 1 Drop (MYDRIACYL) 1 Drop, BOTH EYES, DIRECTED, Starting on 11/17/21 at 1346, Until Magalis 11/18/21 at 0145, Administer for dilation, [facility] MED ORDERS Given 11/17/2021 2:01 PM EDT 1 Drop Active Administered Medications - up to 3 most recent administrations Medication Order MAR Action Action Date Dose Rate Site fluorescein-benoxinate 0.25-0.4 % 1 Drop (FLURESS) 1 Drop, BOTH EYES, DIRECTED, Starting on Magalis 12/09/21 at 0830, Until Magalis 12/09/21 at 2028, Administer for applanation tonometry. In the event of a Fluress shortage, administer [place]-Fluor 1 drop into both eyes as directed for applanation tonometry Given 12/09/2021 8:30 AM EDT 1 Drop PHENYLephrine 2.5 % 1 Drop (AK-DILATE, MARIA DE JESUS-SYNEPHRINE) 1 Drop, BOTH EYES, DIRECTED, Starting on Magalis 12/09/21 at 0830, Until Magalis 12/09/21 at 2028, Administer for dilation PROTECT FROM LIGHT Given 12/09/2021 8:30 AM EDT 1 Drop tropicamide 1 % 1 Drop (MYDRIACYL) 1 Drop, BOTH EYES, DIRECTED, Starting on Magalis 12/09/21 at 0830, Until Magalis 12/09/21 at 2028, Administer for dilation Given 12/09/2021 8:30 AM EDT 1 Drop Active Administered Medications - up to 3 most recent administrations Medication Order MAR Action Action Date Dose Rate Site fluorescein-benoxinate 0.25-0.4 % 1 Drop (FLURESS) 1 Drop, BOTH EYES, DIRECTED, Starting on Mon12/20/21 at 0800, Until Mon12/20/21 at 1959, Administer for applanation tonometry. In the event of a Fluress shortage, administer 1 drop of [place]-Fluor into both eyes as directed for applanation tonometry., [facility] MED ORDERS Given 12/20/2021 8:00 AM EDT 1 Drop PHENYLephrine 2.5 % 1 Drop (AK-DILATE, MARIA DE JESUS-SYNEPHRINE) 1 Drop, BOTH EYES, DIRECTED, Starting on Mon12/20/21 at 0800, Until Mon12/20/21 at 1959, Administer for dilation PROTECT FROM LIGHT, [facility] MED ORDERS Given 12/20/2021 8:00 AM EDT 1 Drop tropicamide 1 % 1 Drop (MYDRIACYL) 1 Drop, BOTH EYES, DIRECTED, Starting on Mon12/20/21 at 0800, Until Mon12/20/21 at 195, Administer for dilation, [facility] MED ORDERS Given 12/20/2021 8:00 AM EDT 1 Drop Chief Complaint and Reason for Visit 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 Reason for Visit Diabetes type 2, unc ontrolled History of gout Brittanie-rectal abscess 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 Amb Documentation BRITTANIE-RECTAL ABSCESS VS FISTULA Reason for Visit Diabetes type 2, unc ontrolled History of gout Brittanie-rectal abscess Chief Complaint Admit Date 3 M FU April 12, 2024 10 :55am 3 M FU July 10, 2024 10:1 7am Reason for Visit Admit Date Diabetes type 2, uncontrolled April 10:55am Elevated blood pressure reading April 12, 2024 10:55am Diabetes type 2, uncontrolled July 10, 2024 10:17am Elevated blood pressure reading July 10:17am Encounter for screening for malignant ne oplasm of prostate July 10, 2024 10:17am History of gout July 10, 2024 10:1 7am Chief Complaint Admit Date 3 M FU July 10, 2024 10:1 7am fu on symptoms August 09, 2024 7:48am FOLLOW UP FROM [facility] September 25, 2024 12:35pm Reason for Visit Admit Date Diabetes type 2, uncontrolled July 10, 2024 10:17am Elevated blood pressure reading July 10:17am Encounter for screening for malignant ne oplasm of prostate July 10, 2024 10:17am History of gout July 10, 2024 10:1 7am Diabetes type 2, uncontrolled August 09, 2 025 7:48am Dizziness August 09, 2024 7:48am Old myocardial infarct August 09, 2024 7:4 8am Chief Complaint Admit Date 3 M FU July 10, 2024 10:1 7am fu on symptoms August 09, 2024 7:48am FOLLOW UP FROM [facility] September 25, 2024 12:35pm 1 M FU October 16, 2024 3:54p m Reason for Visit Admit Date Diabetes type 2, uncontrolled July 10, 2024 10:17am Elevated blood pressure reading July 10:17am Encounter for screening for malignant ne oplasm of prostate July 10, 2024 10:17am History of gout July 10, 2024 10:1 7am Diabetes type 2, uncontrolled August 09, 2 025 7:48am Dizziness August 09, 2024 7:48am Old myocardial infarct August 09, 2024 7:4 8am CAD, multiple vessel September 25, 2024 12: 35pm Diabetes type 2, uncontrolled September 25, 2024 12:35pm Elevated blood pressure reading September 12:35pm Urinary tract disorder September 25, 2024 1 2:35pm Chief Complaint Admit Date fu on symptoms August 09, 2024 7:48am FOLLOW UP FROM [facility] September 25, 2024 12:35pm 1 M FU October 16, 2024 3:54p m 1 M FU November 15, 2024 12: 38pm Reason for Visit Admit Date Diabetes type 2, uncontrolled August 09, 2 025 7:48am Dizziness August 09, 2024 7:48am Old myocardial infarct August 09, 2024 7:4 8am CAD, multiple vessel September 25, 2024 12: 35pm Diabetes type 2, uncontrolled September 25, 2024 12:35pm Elevated blood pressure reading September 12:35pm Urinary tract disorder September 25, 2024 1 2:35pm CAD, multiple vessel October 16, 2024 3:54 pm Diabetes type 2, uncontrolled October 16, 2024 3:54pm Elevated blood pressure reading October 3:54pm Urinary tract disorder October 16, 2024 3: 54pm Urinary tract disorder November 15, 2024 12:38pm Chief Complaint Admit Date fu on symptoms August 09, 2024 7:48am FOLLOW UP FROM [facility] September 25, 2024 12:35pm 1 M FU October 16, 2024 3:54p m 1 M FU November 15, 2024 12: 38pm Nausea and diarrhea December 06, 2024 2: 22pm Reason for Visit Admit Date Diabetes type 2, uncontrolled August 09, 025 7:48am Dizziness August 09, 2024 7:48am Old myocardial infarct August 09, 2024 7:4 8am CAD, multiple vessel September 25, 2024 12: 35pm Diabetes type 2, uncontrolled September 25, 2024 12:35pm Elevated blood pressure reading September 12:35pm Urinary tract disorder September 25, 2024 1 2:35pm CAD, multiple vessel October 16, 2024 3:54 pm Diabetes type 2, uncontrolled October 16, 2024 3:54pm Elevated blood pressure reading October 3:54pm Urinary tract disorder October 16, 2024 3: 54pm CAD, multiple vessel November 15, 2024 12 :38pm Diabetes type 2, uncontrolled November 12:38pm Urinary tract disorder November 15, 2024 12:38pm Diarrhea December 06, 2024 2: 22pm Additional Source Comments (unrecognized sect ion and content) No Status Records FoundNo Status Records FoundNo Status Records FoundNo Status Records FoundNo Status Records FoundNo Status Records FoundNo Status Records Found INFORMATION SOURCE (unrecogn ized section and content) DATE CREATED AUTHOR 09/29/2017 [facility] DATE CREATED AUTHOR AUTHOR'S ORGANIZ ATION 01/29/2019 [employer] DATE CREATED AUTHOR AUTHOR'S ORGANIZ ATION 11/28/2022 [facility] DATE CREATED AUTHOR AUTHOR'S ORGANIZ ATION 09/23/2024 [facility] DATE CREATED AUTHOR AUTHOR'S ORGANIZ ATION 09/23/2024 [facility] DATE CREATED AUTHOR AUTHOR'S ORGANIZ ATION 12/12/2024 [facility] DATE CREATED AUTHOR AUTHOR'S ORGANIZ ATION 12/13/2024 [facility] Source Comments (unrecognize d section and content) In the event this informatio n is protected by the Federal Confidentiality of Alcohol and Drug Abuse Patient Records regulations: The Federal rules restrict any use of the information to criminally investigate or prosecute any alcohol or drug abuse patient.[facility] SystemIn the event this information is protected by the Federal Confidentiality of Alcohol and Drug Abuse Patient Records regulations: The Federal rules restrict any use of the information to criminally investigate or prosecute any alcohol or drug abuse patient.[facility] SystemIn the event this information is protected by the Federal Confidentiality of Alcohol and Drug Abuse Patient Records regulations: The Federal rules restrict any use of the information to criminally investigate or prosecute any alcohol or drug abuse patient.[facility] SystemIn the event this information is protected by the Federal Confidentiality of Alcohol and Drug Abuse Patient Records regulations: The Federal rules restrict any use of the information to criminally investigate or prosecute any alcohol or drug abuse patient.[facility] SystemIn the event this information is protected by the Federal Confidentiality of Alcohol and Drug Abuse Patient Records regulations: The Federal rules restrict any use of the information to criminally investigate or prosecute any alcohol or drug abuse patient.[facility] SystemIn the event this information is protected by the Federal Confidentiality of Alcohol and Drug Abuse Patient Records regulations: The Federal rules restrict any use of the information to criminally investigate or prosecute any alcohol or drug abuse patient.[facility] SystemIn the event this information is protected by the Federal Confidentiality of Alcohol and Drug Abuse Patient Records regulations: The Federal rules restrict any use of the information to criminally investigate or prosecute any alcohol or drug abuse patient.[facility] SystemIn the event this information is protected by the Federal Confidentiality of Alcohol and Drug Abuse Patient Records regulations: The Federal rules restrict any use of the information to criminally investigate or prosecute any alcohol or drug abuse patient.[facility] SystemIn the event this information is protected by the Federal Confidentiality of Alcohol and Drug Abuse Patient Records regulations: The Federal rules restrict any use of the information to criminally investigate or prosecute any alcohol or drug abuse patient.[facility] SystemIn the event this information is protected by the Federal Confidentiality of Alcohol and Drug Abuse Patient Records regulations: The Federal rules restrict any use of the information to criminally investigate or prosecute any alcohol or drug abuse patient.[facility] SystemIn the event this information is protected by the Federal Confidentiality of Alcohol and Drug Abuse Patient Records regulations: The Federal rules restrict any use of the information to criminally investigate or prosecute any alcohol or drug abuse patient.[facility] SystemIn the event this information is protected by the Federal Confidentiality of Alcohol and Drug Abuse Patient Records regulations: The Federal rules restrict any use of the information to criminally investigate or prosecute any alcohol or drug abuse patient.[facility] SystemIn the event this information is protected by the Federal Confidentiality of Alcohol and Drug Abuse Patient Records regulations: The Federal rules restrict any use of the information to criminally investigate or prosecute any alcohol or drug abuse patient.[facility] SystemIn the event this information is protected by the Federal Confidentiality of Alcohol and Drug Abuse Patient Records regulations: The Federal rules restrict any use of the information to criminally investigate or prosecute any alcohol or drug abuse patient.[facility] SystemIn the event this information is protected by the Federal Confidentiality of Alcohol and Drug Abuse Patient Records regulations: The Federal rules restrict any use of the information to criminally investigate or prosecute any alcohol or drug abuse patient.[facility] SystemIn the event this information is protected by the Federal Confidentiality of Alcohol and Drug Abuse Patient Records regulations: The Federal rules restrict any use of the information to criminally investigate or prosecute any alcohol or drug abuse patient.[facility] SystemIn the event this information is protected by the Federal Confidentiality of Alcohol and Drug Abuse Patient Records regulations: The Federal rules restrict any use of the information to criminally investigate or prosecute any alcohol or drug abuse patient.[facility] SystemIn the event this information is protected by the Federal Confidentiality of Alcohol and Drug Abuse Patient Records regulations: The Federal rules restrict any use of the information to criminally investigate or prosecute any alcohol or drug abuse patient.[facility] SystemIn the event this information is protected by the Federal Confidentiality of Alcohol and Drug Abuse Patient Records regulations: The Federal rules restrict any use of the information to criminally investigate or prosecute any alcohol or drug abuse patient.[facility] SystemIn the event this information is protected by the Federal Confidentiality of Alcohol and Drug Abuse Patient Records regulations: The Federal rules restrict any use of the information to criminally investigate or prosecute any alcohol or drug abuse patient.[facility] SystemIn the event this information is protected by the Federal Confidentiality of Alcohol and Drug Abuse Patient Records regulations: The Federal rules restrict any use of the information to criminally investigate or prosecute any alcohol or drug abuse patient.[facility] SystemIn the event this information is protected by the Federal Confidentiality of Alcohol and Drug Abuse Patient Records regulations: The Federal rules restrict any use of the information to criminally investigate or prosecute any alcohol or drug abuse patient.[facility] SystemIn the event this information is protected by the Federal Confidentiality of Alcohol and Drug Abuse Patient Records regulations: The Federal rules restrict any use of the information to criminally investigate or prosecute any alcohol or drug abuse patient.[facility] SystemIn the event this information is protected by the Federal Confidentiality of Alcohol and Drug Abuse Patient Records regulations: The Federal rules restrict any use of the information to criminally investigate or prosecute any alcohol or drug abuse patient.[facility] SystemIn the event this information is protected by the Federal Confidentiality of Alcohol and Drug Abuse Patient Records regulations: The Federal rules restrict any use of the information to criminally investigate or prosecute any alcohol or drug abuse patient.[facility] Reason for Visit (unrecogniz ed section and content) Reason Comments Blurred Vision Right Eye Reason Comments Cataract Evaluation Reason Comments Appointment A-scan reminder Reason Comments A-scan IOL Calculations Reason Comments Appointment Reason Comments Preparations For Surgery IOL Order Right Eye for 02/01/22 surgery Reason Comments Patient Request call Reason Onset Date Comments Cancelled Appointment 11/28/2022 Pt cx appt for 11.29 due to not feeling well. Please call to r/s Reason Comments Orders Reason Onset Date Comments Results 08/26/2024 Reason Comments Home Care Confirmation Call Reason Comments Cardiac Rehab Initial Outreach - t o determine location Reason Comments Patient Update Nurse [facility] with report/hand-off Reason Comments Post Op CABG Follow Up 2-week follow-up Reason Comments Appointment Appointment Reason Comments Established Patient Reason Comments Post Op 08/30/24 CABG Reason Comments CARD Follow Up 3 Month s/p CABG Care Teams (unrecognized sec tion and content) Neurophysiologist Relationship Specialty Start Date End Date Dave Osman Jr. [address] [place] [address] PCP - General Family Practice 07/06/20 Neurophysiologist Relationship Specialty Start Date End Date Dave Osman Jr. [address] [place] [address] PCP - General Family Practice 07/06/20 Neurophysiologist Relationship Specialty Start Date End Date Dave Osman [address] [facility] [place] [address] PCP - General Family Practice 07/06/20 Neurophysiologist Relationship Specialty Start Date End Date Dave Osman Jr. [address] [facility] [place] [address] PCP - General Family Medicine 07/06/20 Neurophysiologist Relationship Specialty Start Date End Date Dave Osman JrRon [address] [place] [address] PCP - General Family Medicine 07/06/20 Neurophysiologist Relationship Specialty Start Date End Date Dave Osman [address] [place] [address] PCP - General Family Medicine 07/06/20 Neurophysiologist Relationship Specialty Start Date End Date Dave Osman [address] [place] [address] PCP - General Family Medicine 07/06/20 Neurophysiologist Relationship Specialty Start Date End Date Deirdre Rico MD [address] [place] [address] PCP - General 02/22/13 Team Status: Active Member Role Status Dates AMADO Wood Primary Care Provider Active Team Status: Inactive Member Role Status Dates AMADO Wood Attending Provider Active Team Status: Inactive Member Role Status Dates AMADO Wood Primary Care Provide r, Attending Provider, Referring Provider Active Team Status: Active Member Role Status Dates AMADO Wood Primary Care Provider Active Eden Ibrahim MA Attending Provider Acti manuel Team Status: Inactive Member Role Status Dates AMADO Wood Primary Care Provider Active Start: April 12, 2024 End: April 12, 2024 Mario FISCHER PA Attending Provider Active St art: April 12, 2024 End: April 12, 2024 Mario FISCHER PA Referring Provider Active St art: April 12, 2024 End: April 12, 2024 Team Status: Inactive Member Role Status Dates Mario FISCHER PA Primary Care Provider Active Start: July 10, 2024 End: July 10, 2024 Mario FISCHER PA Attending Provider Active St art: July 10, 2024 End: July 10, 2024 Mario FISCHER PA Referring Provider Active St art: July 10, 2024 End: July 10, 2024 Team Status: Inactive Member Role Status Dates Mario FISCHER PA Primary Care Provider Active Start: July 12, 2024 End: July 12, 2024 Mario FISCHER PA Attending Provider Active St art: July 12, 2024 End: July 12, 2024 Mario FISCHER PA Referring Provider Active St art: July 12, 2024 End: July 12, 2024 Neurophysiologist Relationship Specialty Start Date End Date Mario Bellamy [address] [address] PCP - General Family Medicine 08/15/24 Neurophysiologist Relationship Specialty Start Date End Date Mario Bellamy [address] [address] PCP - General Family Medicine 08/15/24 Neurophysiologist Relationship Specialty Start Date End Date Mario Bellamy [address] [address] PCP - General Family Medicine 08/15/24 Neurophysiologist Relationship Specialty Start Date End Date Mario Bellamy [address] [address] PCP - General Family Medicine 08/15/24 Neurophysiologist Relationship Specialty Start Date End Date Mario Bellamy [address] [facility] [address] [place] [address] PCP - General Family Medicine 08/15/24 Neurophysiologist Relationship Specialty Start Date End Date Osmin Bellamygerardo Garcia [address] [facility] [address] [place] [address] PCP - General Family Medicine 08/15/24 Neurophysiologist Relationship Specialty Start Date End Date Kiya Mario P [address] [facility] [address] [place] [address] PCP - General Family Medicine 08/15/24 Neurophysiologist Relationship Specialty Start Date End Date KiyaMario [address] [facility] [address] [place] [address] PCP - General Family Medicine 08/15/24 Neurophysiologist Relationship Specialty Start Date End Date FrankieMario michelle [address] [facility] [address] [place] [address] PCP - General Family Medicine 08/15/24 Team Status: Inactive Member Role Status Dates Mario FISCHER PA Primary Care Provider Active Start: August 09, 2024 End: August 09, 2024 Mario FISCHER PA Attending Provider Active St art: August 09, 2024 End: August 09, 2024 Mario FISCHER, PA Referring Provider Active St art: August 09, 2024 End: August 09, 2024 Team Status: Inactive Member Role Status Dates Mario FISCHER PA Primary Care Provider Active Start: September 25, 2024 End: September 25, 2024 Mario FISCHER, PA Attending Provider Active St art: September 25, 2024 End: September 25, 2024 Mario FISCHER, PA Referring Provider Active St art: September 25, 2024 End: September 25, 2024 Neurophysiologist Relationship Specialty Start Date End Date Mario Bellamy [address] [facility] [address] [place] [address] PCP - General Family Medicine 08/15/24 Neurophysiologist Relationship Specialty Start Date End Date Mario Bellamy [address] [address] PCP - General Family Medicine 08/15/24 Neurophysiologist Relationship Specialty Start Date End Date Mario Bellamy [address] [id number] PCP - General Family Medicine 08/15/24 Team Status: Active Member Role/Relationship Status Dates Mario Bellamy PA, PA Primary Care Provider Active Team Status: Inactive Member Role/Relationship Status Dates Mario Bellamy PA, PA Primary Care Provider Active Start: July 10, 2024 End: July 10, 2024 Mario Bellamy PA, PA Attending Provider Active St art: July 10, 2024 End: July 10, 2024 Mario Bellamy PA, PA Referring Provider Active St art: July 10, 2024 End: July 10, 2024 Team Status: Inactive Member Role/Relationship Status Dates Mario Bellamy PA, PA Primary Care Provider Active Start: July 12, 2024 End: July 12, 2024 Mario Bellamy PA, PA Attending Provider Active St art: July 12, 2024 End: July 12, 2024 Mario Bellamy PA, PA Referring Provider Active St art: July 12, 2024 End: July 12, 2024 Team Status: Inactive Member Role/Relationship Status Dates Mario Bellamy PA, PA Primary Care Provider Active Start: August 09, 2024 End: August 09, 2024 Mario Bellamy PA, PA Attending Provider Active St art: August 09, 2024 End: August 09, 2024 Mario Bellamy PA, PA Referring Provider Active St art: August 09, 2024 End: August 09, 2024 Team Status: Inactive Member Role/Relationship Status Dates Mario Bellamy PA, PA Primary Care Provider Active Start: September 25, 2024 End: September 25, 2024 Mario Bellamy PA, PA Attending Provider Active St art: September 25, 2024 End: September 25, 2024 Mario Bellamy PA, PA Referring Provider Active St art: September 25, 2024 End: September 25, 2024 Team Status: Inactive Member Role/Relationship Status Dates Mario Bellamy PA, PA Primary Care Provider Active Start: October 16, 2024 End: October 16, 2024 Mario Bellamy PA, PA Attending Provider Active St art: October 16, 2024 End: October 16, 2024 Mario Bellamy PA, PA Referring Provider Active St art: October 16, 2024 End: October 16, 2024 Team Status: Inactive Member Role/Relationship Status Dates Mario Bellamy PA, PA Primary Care Provider Active Start: August 09, 2024 End: August 09, 2024 Mario Bellamy PA, PA Attending Provider Active St art: August 09, 2024 End: August 09, 2024 Mario Bellamy PA, PA Referring Provider Active St art: August 09, 2024 End: August 09, 2024 Team Status: Inactive Member Role/Relationship Status Dates Mario Bellamy PA, PA Primary Care Provider Active Start: September 25, 2024 End: September 25, 2024 Mario Bellamy PA, PA Attending Provider Active St art: September 25, 2024 End: September 25, 2024 Mario Bellamy PA, PA Referring Provider Active St art: September 25, 2024 End: September 25, 2024 Team Status: Inactive Member Role/Relationship Status Dates Mario Bellamy PA, PA Primary Care Provider Active Start: October 16, 2024 End: October 16, 2024 Mario Bellamy PA, PA Attending Provider Active St art: October 16, 2024 End: October 16, 2024 Mario Bellamy PA, PA Referring Provider Active St art: October 16, 2024 End: October 16, 2024 Team Status: Inactive Member Role/Relationship Status Dates Mario Bellamy PA, PA Primary Care Provider Active Start: November 15, 2024 End: November 15, 2024 Mario Bellamy PA, PA Attending Provider Active St art: November 15, 2024 End: November 15, 2024 Mario Bellamy PA, PA Referring Provider Active St art: November 15, 2024 End: November 15, 2024 Neurophysiologist Relationship Specialty Start Date End Date Mario Bellamy [address] [facility] [address] [place] [address] PCP - General Family Medicine 08/15/24 Team Status: Inactive Member Role/Relationship Status Dates AMADO Wood Primary Care Provider Active Start: December 06, 2024 End: December 06, 2024 AMADO Wood Attending Provider Active St art: December 06, 2024 End: December 06, 2024 AMADO Wood Referring Provider Active St art: December 06, 2024 End: December 06, 2024 Neurophysiologist Relationship Specialty Start Date End Date Mario Bellamy [address] [facility] [address] [place], [place] [id number] PCP - General Family Medicine 08/15/24 Goals (unrecognized section and content) Goals may be documented in a n alternate sectionGoals may be documented in an alternate sectionGoals may be documented in an alternate sectionGoals may be documented in an alternate sectionGoals may be documented in an alternate sectionGoals may be documented in an alternate sectionGoals may be documented in an alternate section FOR RECORDS PERTAINING TO PATIENTS WHO ARE OR HAVE BEEN ENROLLED IN A CHEMICAL DEPENDENCY/SUBSTANCEABUSE PROGRAM, SOME INFORMATION MAY BE OMITTED. This clinical summary was aggregated from multiple sources. Caution should be exercised in using it in the provision of clinical care. This summary normalizes information from multiple sources, and as a consequence, information in this document may materially change the coding, format and clinical context of patient data. In addition, data may be omitted in some cases. CLINICAL DECISIONS SHOULD BE BASED ON THE PRIMARY CLINICAL RECORDS. [facility] provides no warranty or guarantee of the accuracy or completeness of information in this document.
== END | disposition home or self-care (01) ==
LOC: LABSPEC 07:04
PROVIDERS: PCP Physician Assistant; Referring Provider Physician Assistant; Visit Provider Physician Assistant
DX: K58.0 Irritable bowel syndrome with diarrhea (principal)
CPT/HCPCS: 87493; 87506

== ENCOUNTER 2025-01-03 13:56 | Outpatient (RCR) | payer MEDICARE, SELFPAY ==
--- NOTE | 2025-01-03 14:01 | PCM.CR.HP2 ---
CR - History & Physical General Arrival date:: 01/03/25 Arrival time:: 14:01 Date of Referral:: 08/31/24 Date of CR Evaluation:: 01/03/25 Referring Physician: Dr. Metcalf Primary Diagnosis: CABG History of Present Cardiac Event Onset Date Coronary Artery Bypass Graft:: Yes (onset 08/30/24) Vessel: LAMAS-LAD, SVG-diag, SVG-PDA Medications Ambulatory Orders ?Medication ?Instructions ?Recorded Adren-all PO 1XD 06/23/23 Held on 09/25/24. Instructions: per [facility] ascorbic acid (vitamin C) 1,000 mg 1 g PO DAILY 06/23/23 capsule Held on 09/25/24. Instructions: per [facility] iodoral 12.5 mg PO 1XD 06/23/23 Held on 09/25/24. Instructions: per [facility] optiprostat PO 1XD 06/23/23 Held on 09/25/24. Instructions: per [facility] selenium 200 mcg capsule 200 mcg PO DAILY 06/23/23 cholecalciferol (vitamin D3) 125 125 mcg PO .three times weekly 12/22/23 mcg (5,000 unit) capsule Held on 09/25/24. Instructions: per [facility] thyroid (pork) 120 mg tablet (SHOOTING GALLERY OPERATOR 120 mg PO DAILY #90 tabs 06/13/24 Thyroid) L.acidophil,salivari-Bifido cap PO 09/25/24 bifidum-Strep thermoph 175 mg capsule acetaminophen 500 mg capsule 1,000 mg PO Q4H PRN 09/25/24 atorvastatin 40 mg tablet 40 mg PO QAM 09/25/24 polyethylene glycol 3350 17 4 g PO QDAY PRN 09/25/24 gram/dose oral powder (Miralax) sennosides 8.6 mg tablet (Senokot) 8.6 mg PO QDAY PRN 09/25/24 finasteride 5 mg tablet 5 mg PO QAM #90 tabs 10/16/24 metoprolol tartrate 25 mg tablet 12.5 mg (1/2 x 25 mg) PO BID #180 10/16/24 tabs tamsulosin 0.4 mg capsule 0.4 mg PO QHS #90 caps 10/16/24 insulin glargine 100 unit/mL (3 40 unit (0.4 mL) subcut QAM #15 mL 10/29/24 mL) subcutaneous pen (Lantus Solostar U-100 Insulin) pen needle, diabetic 32 gauge x #100 ea 10/29/2432 (Saba Pen Needle) insulin lispro 100 unit/mL 1 sliding scale dose subcut TID 10/30/24 subcutaneous pen (Humalog KwikPen #15 mL (U-100) Insulin) aspirin 81 mg tablet 81 mg PO QAM 12/06/24 ondansetron 4 mg disintegrating 4 mg PO Q6H PRN nausea and 12/06/24 tablet vomiting #20 tabs Allergies Allergies No Known Allergies Allergy (Unverified 12/06/24 14:48) Sleep Disorder Evaluation Hx of Sleep Apnea: No Do you snore loudly (louder than talking or can be heard through closed doors)?: No Do you often feel tired/ fatigued/ sleepy during daytime?: No Has anyone observed you stop breathing during sleep?: No History of Hypertension (for STOP score): No STOP Results: Negative Advanced Directives Advanced Directives Do you have a Healthcare Power of Transport Assistant?: No Living Will: No Advance Directives Information Provided: No Advance Directives on File: No DNR Order?:: No Past Medical History Covid-19 Screening Physicial Symptoms Other Clinical Concerns Exposure Risk Pertinent Comorbidities 65 years or older:: Yes Has a serious heart condition:: Yes Past Medical Illness Medical History Back fracture (~08/2024) Amputation of ring finger Hernia, umbilical Hernia, inguinal Gout Diabetes Past Surgical History Surgical History S/P CABG (coronary artery bypass graft) History of hernia repair H/O thyroidectomy (Unknown) Family History Summary Family History Father Colon cancer Diabetes Hypertension Thyroid disorder Social History Smoking History Smoking Status: Never smoker Alcohol Use Alcohol Usage: No Occupation Occupation (List type of work in comments):: Retired Social Environment Status Marital Status: Current Living Arrangements Living Environment:: Spouse Children How many children do you have?: 1 Do any of your children live nearby?: No Safety Do you feel safe in your surroundings?: Yes Assistance Do you need any assistance at home?: no Review of Systems Review of Systems Hints Review of Present Symptoms: Reports Fatigue, Appetite - Normal, Appetite - Special Diet and Sleep - Normal; Denies Shortness of Breath at Rest, Shortness of Breath with Exertion, PVD, Operative Discomfort, Angina, Wound Healing, Dizziness/Lightheadedness, Heart Arrhythmia/Irregularities or Sexual Changes Pain Is Patient Pain Free?: Yes Risk Factor Assessment Chief Complaint Chief Complaint: CABG Vital Signs Pulse Ox: 98 Blood Pressure: 109/70 Pulse Pulse Rate: 55 Hypertension Blood Pressure Sitting - Right Arm: 109/70 Diabetes Diabetic History: Type II Obesity Height: 5 ft 10 in Weight:: 195 lb Weight in Pounds: 195.0 lbs Body Mass Index (BMI): 27.9 Physical Inactivity Physical Inactivity: Reg Exercise 30 min/day Risk Stratification Risk Guidelines: Lowest Risk: Risk Factor for Smoking, Moderate Risk: Risk Factor for Diabetes, Risk Factor for Obesity, Risk Factor for Sedentary Lifestyle and Risk Factor for Depression and Highest Risk: Risk Factor for Dyslipidemia and Risk Factor for Hypertension For Smoking Smoking Risk Guidelines For Dyslipidemia Dyslipidemia Risk Guidelines For Diabetes Mellitus Diabetes Risk Guidelines For Obesity/Overweight Obesity/Overweight Risk Guidelines For Hypertension Hypertension Risk Guidelines For Sedentary Lifestyle Sedentary Lifestyle Risk Guidelines For Depression Depression Risk Guidelines Family History Family History Father Colon cancer Diabetes Hypertension Thyroid disorder Motivation Motivation to Participate On a scale of 1 to 10, how prepared are you to commit to attending program?: 10 What do you see as barriers to successfully being able to complete the program?: nothing What do you see as the benefits of succesfully completing the program? In other words, what do you hope to get out of participating in the program?: get stronger Are there issues you are dealing with that will interfere with completing the program?: no Do you have a spouse or signficant other, family or friends who will help support you to complete the program?: yes
[2025-01-03 14:09] VITALS: BP 109/70; PULSE 55; O2SAT 98
--- NOTE | 2025-01-03 14:09 | PCM.CR.ITP ---
Diagnosis General Information Admitting Diagnosis: CABG Personal Learning Style:: Audio/Visual Barriers to Learning: No Barriers Stage of change r/t lifestyle modifications:: Contemplation Gave educational material for:: Treating Heart Disease, How The Heart Works, What it means to have Heart Disease, How Coronary Artery Disease is Diagnosed, Heart Procedures, What Heart Medications Do, Risk Factors & Modifications, Living an Active Life, Nutrition, Emotions & Heart Disease, Stress Management & Relaxation and Sleep Disorders & Heart Disease Education/Goals Cardiac Rehabilitation Goals Personal Goals: Initial Assessment: Improve energy level, Get back to work, or to resume activities faster, Improve knowledge of cardiac disease, Improve muscle strength and endurance and Control risk factors (learn risk factor modification) Scale for measuring improvement of personal goals Diagnosis & Disease Process Outcomes/Goals: Pt IDs own risk factors & lifestyle modifications by Session 10, Verbalizes symptoms of angina & response by session 3. and Pt independently manages Plan/Interventions: Assist Pt to ID & engage in lifestyle modification to reduce CVD risk, Instruct on individual risk factors, Review symptoms of angina & emergency actions, Review secondary diagnosis & identify educational needs. and Other see comment 30 day Reassessments:: Not Met 30 day Reassessments:: Not Met 30 day Reassessments:: Not Met 30 day Reassessments:: Not Met Final Reassessments:: Not Met Safety Referral to Physical Therapy: No Referral to [facility] Case Management: No Fall Risk Assessed:: Yes Assistive Devices:: None Exercise - Initial Assessment Visit Date of Eval: 01/03/25 (initial eval ) Mets: Pre-: >3 METS for 30 minutes by discharge, >5 METS for 30 minutes by discharge, >7 METS for 30 minutes by discharge and Unable to meet goal due to: (see comment below) Physician Prescribed Exercise Modalities: Treadmill, Rower, Schwinn Airdyne AD-7, SciFit Stepper, SciFit Pro-II Ergometer and SciFit Lateral [place] Frequency: 3x/week for 12 weeks [36 sessions] Intensity: 60-80% of age predicted maximum heart rate reserve Duration: 30 - 45 minutes Current METSs:: 3 Target Heart Rate:: 91-113 Resting Blood Pressure: 109/70 EKG Type: SR with frequent PVC Outcomes & Goals Goals:: Verbalizes understanding of THR, RPE & goal METS by session 6, Documents in home exercise log/reports 30 min aerobic 5 day/wk by DC, Demonstrates accurate pulse taking by DC and Other additional outcome/goals: see below Intervention & Plan Exercise Program Goals: Instruct on personal THR & RPE, Instruct on MET level & personal MET goal, Show patient to take own pulse /validate performance until accurate, Instruct on home exercise and Other additional plan/int Physical Activity Home Exercise Physical Activity - Home Exercise: Safe Exercise, Warm-up, Self-monitoring, Cool-Down, Home Exercise > 30 min Daily and Sitting Time <3 hours/daily Outcomes & Goals Outcomes/Goals: Demonstrates correct Warm-up/exercise Cool-Down (S3) if = 2.5 METs, Verbalizes symptoms of exercise intolerance by Session 3 (S3), Demonstrate safe equipment use (S3) & follows exercise prescrition (6) and Other: See below Intervention & Plan Plan/Intervention: Instruct warm-up & cool-down if exercising at > 2 METs, Instruct on symptoms of exercise intolerance & actions to take, Instruct & monitor on saf, Assess intial functional capacity & safety risk and Other See below Nutrition - Initial Assessment Program Goals Nutrition Program Goals Patient has diagnosis of Hyperlipidemia (ICD E78)?: Yes Visit Date of Eval: 01/03/25 (Initial eval. Nutrition survey score 3.) Cholesterol/Lipids (Other Core Measures) Determine presence & major risk factors that modify LDL goal: Hypertension or hypertensive medication, Low HDL cholesterol <40 mg/dL*, Family history of premature CHD in Male < 55 years: female <65 yearsFa and Age men > 45 years; women >/= 55 years Outcomes/Goals: Pt IDs own risk factors & lifestyle modifications by Session 10, Verbalizes symptoms of angina & response by session 3. and Pt independently manages Intervention/Plan: Advocate for lipid panel cholesterol medication if applicable, Instruct on personal lipid levels & lipid goals/NCEP guidelines and Instruct on cholesterol Referral to dietitian:: No (declines) Diabetes (Other Core Measures) Diabetes Type: Diagnosis Type II ICD-10 E11 Insulin dependent injection/pump?: Yes Non-Insulin Dependent?: No Do you monitor your blood sugar at home?: Yes Referral to Diabetic Clinic:: No Weight Mgt (Other Care) Height: 5 ft 10 in Weight:: 195 lb BMI: 27.9 Diagnosis Overweight/Obesity BMI> 30% ICD-10 E66: No Diagnosis High BMI/Morbid Obesity BMI> 35% ICD-10 Z68: No Outcomes/Goals: Pt sets, maintains & shows weight loss goal & trend during rehab Intervention/Plan: Instruct on ideal BMI & set weight loss goal w/patient, Assist pt to ID & incorporate diet changes for weight loss by S9, Refer to Structured Weight Loss program as appropriate and Encourage goal of using 250-300dcal per session for weight loss Healthy Eating Habits Will attend diet classes:: Yes Outcomes/Goals:: Consume diet rich in vegs,fruits,whole grain/high fiber,fish,lean meat and Limit sat/trans fats,cholesterol & added salts & sugars Intervention/Plan:: Assess current eating habits Education Gave educational materials for:: Signs & symptoms of hypoglycemia, Signs & symptoms of hyperglycemia, Relate diabetes to coronary artery disease and Healthy eating Core - Initial Assessment Visit Date of Eval: 01/03/25 (initial eval ) Medication Compliance Preventative Medication(s):: Aspirin, Statin/lipid and Beta gustavo H/O mental health issues: depression, anxiety, or addiction?: No Doesn?t believe in the benefits of treatment?: No Believes medications are unnecessary or harmful?: No Has a concern about medication side effects?: No Expresses concern over the cost of medications?: No Outcomes/Goals: Verbalizes medications,desired effect & common side effects @ DC, Pt self-reports following medication regimen, Keeps card in wallet w/medications listed by DC and Other additional outcome/goals: Interventions/plans: Instruct on medication effects & side effects, Review medication list w/patient every two weeks, Instruct importance of taking meds as ordered & assist problem solving and Other additional Tobacco Use Tobacco Use: Non-smoker Hypertension Resting Blood Pressure:: 109/70 [place] [employer] Hypertension Guidelines Outcomes/Goals: Able to verbalize/achieve optimal blood pressure <130/80, Incorporates diet changes & exercise for blood pressure control by DC and Other additional outcomes/goals Interventions/plan: Instruct on optimal blood pressure, hypertension & medications, Instruct on effects of sodium, alcohol, stress, exercise &hypertension and Other additional plan/interventions Tobacco Cessation Referral Smoking Cessation Referral:: No Individual Education/Counseling:: No Education Schedule Given:: Yes Psychosocial - Initial Assess VIsit Date of Eval: 01/03/25 (initial eval) History of previous Mental disease:: No Psychosocial Test Tool Used:: PHQ-9 Questionnaire phq-9 Severity See PHQ-9 Score: 0 Referral to Behavioral Health PS - Interventions: Yes: Attend Stress Management Classes Outcomes/Goals: See list Psychosocial Outcomes/Goals:: ID's personal stressors & 2 strategies to manage stress by discharge and Other Additional outcome/goals: Intervention/Plan: See List Interventions/Plan:: Assess stressors,coping strategies & signs of derpression on admission, Instruct/assist pt to develop coping & personal stress Mgt strategies, Refer to Behavioral Health if appropriate, Refer to Physician if appropriate, Instruct patient to recognize signs & symptoms of depression, Instruct patient to recog and Other additional plan/intervention Patient Health Questionnaire PHQ-9 Screening Initial Assessment: 1. Little interest or pleasure in doing things: Not at all 2. Feeling down, depressed, or hopeless: Not at all 3. Trouble falling or staying asleep, or sleeping too much: Not at all 4. Feeling tired or having little energy: Not at all 5. Poor appetite or overeating: Not at all 6. Feeling bad about yourself -- or that you are a failure or have let yourself or your family down: Not at all 7. Trouble concentrating on things, such as reading the newspaper or watching television: Not at all 8. Moving or speaking so slowly that other people could have noticed. Or the opposite - being so fidgety or restless that you have been moving around a lot more than usual: Not at all 9. Thoughts that you would be better off , or of hurting yourself in some way: Not at all How difficult have these problems made it for you to do your work, take care of things at home, or get along with other people?: Not difficult at all Total Score: 0 Nutrition Survey Nutrition Survey Initial: Have you lost >10 lbs over the past 2 months without trying?: Yes Are you following a special diet at home for diabetes, low fat, or low salt?: Yes Are you interested in meeting with a dietitian for help understanding your diet?: No Do you eat less than 3 meals a day?: Yes Do you eat fatty meats (abreu, sausage, ribs, etc), fried foods, desserts, large amounts of salad dressings, margarine, butter, or cheese most days?: No Do you have food allergies? [Enter types in comment field]: No Do you eat in restaurants more than 3 times a week?: No Do you season food with salt, seasoning salt, or garlic salt?: No Do you used canned, boxed, frozen meals, or soups, seasoning packets?: No Total Score:: 3 Exercise - 30-day Assessment Physician Prescribed Exercise Modalities: Treadmill, Rower, Schwinn Airdyne AD-7, SciFit Stepper, SciFit Pro-II Ergometer and SciFit Lateral Environmental Resource Specialist Exercise - 60-day Assessment Physician Prescribed Exercise Modalities: Treadmill, Rower, Schwinn Airdyne AD-7, SciFit Stepper, SciFit Pro-II Ergometer and SciFit Lateral Environmental Resource Specialist Exercise - 90-day Assessment Physician Prescribed Exercise Modalities: Treadmill, Rower, Schwinn Airdyne AD-7, SciFit Stepper, SciFit Pro-II Ergometer and SciFit Lateral Environmental Resource Specialist Exercise - Final/Discharge Physician Prescribed Exercise Modalities: Treadmill, Rower, Schwinn Airdyne AD-7, SciFit Stepper, SciFit Pro-II Ergometer and SciFit Lateral [place] Frequency: 3x/week for 12 weeks [36 sessions] Intensity: 60-80% of age predicted maximum heart rate reserve Current METSs:: 3 Target Heart Rate:: 91-113 Nutrition - 30-Day Assessment Weight Mgt (Other Care) Height: 5 ft 10 in Weight:: 195 lb BMI: 27.9 Nutrition - 60-Day Assessment Weight Mgt (Other Care) Height: 5 ft 10 in Weight:: 195 lb BMI: 27.9 Core - Final Assessment Hypertension Resting Blood Pressure:: 109/70 [place] [employer] Hypertension Guidelines Core - 60-Day Assessment Hypertension Resting Blood Pressure:: 109/70 [place] [employer] Hypertension Guidelines Psychosocial - 30-Day Assess Referral to Behavioral Health PS - Interventions: Yes: Attend Stress Management Classes Psychosocial - 60-Day Assess Referral to Behavioral Health PS - Interventions: Yes: Attend Stress Management Classes Psychosocial - 90-Day Assess Referral to Behavioral Health PS - Interventions: Yes: Attend Stress Management Classes Psychosocial - Final Assessmen Psychosocial Test phq-9 Severity See PHQ-9 Score: 0 Referral to Behavioral Health PS - Interventions: Yes: Attend Stress Management Classes Nutrition - 90-Day Assessment Weight Mgt (Other Care) Height: 5 ft 10 in Weight:: 195 lb BMI: 27.9 Nutrition - Final Assessment Program Goals Patient has diagnosis of Hyperlipidemia (ICD E78)?: Yes Weight Mgt (Other Care) Height: 5 ft 10 in Weight:: 195 lb BMI: 27.9
[2025-01-03 14:12] VITALS: BP 109/70
[2025-01-03 14:22] VITALS: BMI 27.9
[2025-01-03 14:59] VITALS: BP 109/70; BMI 27.9
== END 2025-01-07 23:59 ==
LOC: CR 13:56
PROVIDERS: PCP Physician Assistant; Referring Provider Thoracic Surgery (Cardiothoracic Vascular Surgery); Visit Provider Thoracic Surgery (Cardiothoracic Vascular Surgery)
DX: Z95.1 Presence of aortocoronary bypass graft (principal)
CPT/HCPCS: 93798

== ENCOUNTER 2025-01-06 09:07 | Outpatient (RCR) | payer MEDICARE, SELFPAY | END 2025-01-07 23:59 | LOC: CR 09:07 | PROVIDERS: PCP Physician Assistant; Referring Provider Thoracic Surgery (Cardiothoracic Vascular Surgery); Visit Provider Thoracic Surgery (Cardiothoracic Vascular Surgery) | DX: Z95.1 Presence of aortocoronary bypass graft (principal) | CPT/HCPCS: 93798 ==

== ENCOUNTER → 2025-01-31 | Outpatient (CLI) | payer MEDICARE, SELFPAY ==
[2025-01-30 07:44] VITALS: BMI 29.7
--- OUTSIDE RECORDS SUMMARY | 2025-01-31 07:33 | XMS RPT_ITS | CCD ---
Author Organization [facility] Care Team Providers Care Director [employer] Name Role Phone BOB FELDMAN Unavailable Unavailable IMCA Unavailable Unavailable IMCA Unavailable Unavailable Errol Dove Unavailable Unavailabl e IMCA Unavailable Unavailable BOB FELDMAN Unavailable Unavailable BOB FELDMAN Unavailable Unavailable IMCA Unavailable Unavailable Dave Osman Jr. Primary Care Provider Dave Osman Jr. Primary Care Provider Trisha DOZIER, Deirdre Pastrana Primary Care Provider [phone] AMADO Ta Attending Provider [phone] AMADO Ta Primary Care Provider DEBBY Ibrahim Attending Provider Unavailable Mario Ta Primary Care Provider [phone] Mario Ta Attending Provider [phone] Mario Ta Referring Provider [phone] Mario Bellamy Primary Care Provider [phone] SAKLECJHONNY, JANAY Admitting Unavailable DARIN JANAY Attending Unavailable MARIO BELLAMY P Primary Care Unavailable OSBALDO ARREOLA Consulting Unavailable Mario Ta Primary Care Provider [phone] Mario Ta Attending Provider [phone] Mario Ta Referring Provider [phone] Mario Ta Primary Care Provider [phone] Mario Ta Attending Provider [phone] Mario Ta Referring Provider [phone] Mario Ta Primary Care Physician Mario Ta Attending Physician Mario Ta Referring Provider Dr. Dave Gaines MD Attending Physician [phone] Dr. Dave Gaines MD Referring Provider Ritika Restrepo Attending Physician [phone] WAYT, MARIO P Primary Care Unavailable HAWRYLUKTANI Attending Unavailable HAWRYLUK, TANI Referring Unavailable WAYT, MARIO P Primary Care Unavailable MICHAEL MARINELLI Attending Unavailable WAYT, MARIO P Primary Care Unavailable HAWRYLUKTANI Attending Unavailable WAYT, MARIO P Primary Care Unavailable MOISES GARCIA Consulting Unavailable EMILY TOMAS Admitting Unavailable WAYT, MARIO P Primary Care Unavailable DAVE GAINES Attending Unavailable WAYT, MARIO P Primary Care Unavailable SHANTELL BYRD Attending Unavailable WAYT, MARIO P Primary Care Unavailable GISELAMAHENDRA Referring Unavailable WAYT, MARIO P Primary Care Unavailable WAYT, MARIO P Primary Care Unavailable HAWRYLUKTANI Attending Unavailable WAYT, MARIO P Primary Care Unavailable SHANTELL BYRD Attending Unavailable WAYT, MARIO P Primary Care Unavailable HAWRYLUKTANI Referring Unavailable Wayt PA, Mario Attending Unavailable Wayt PA, Mario Referring Unavailable Wayt PA, Mario Primary Care Unavailable Wayt PA, Mario Attending Unavailable Wayt PA, Mario Referring Unavailable Wayt PA, Mario Primary Care Unavailable Wayt PA, Mario Attending Unavailable Wayt PA, Mario Referring Unavailable Wayt PA, Mario Primary Care Unavailable Wayt PA, Mario Primary Care Unavailable Wayt PA, Mario Referring Unavailable Wayt PA, Mario Attending Unavailable Wayt PA, Mario Primary Care Unavailable Wayt PA, Mario Referring Unavailable Wayt PA, Mario Attending Unavailable Nickolas Renteria Attending Unavailable Wayt PA, Mario Primary Care Unavailable Wayt PA, Mario Referring Unavailable Ritika Gomes Attending Unavailable Wayt PA, Mario Primary Care Unavailable Wayt PA, Mario Referring Unavailable Dave Gaines Referring Unavailable Wayt PA, Mario Primary Care Unavailable Dave Gaines Attending Unavailable Dave Gaines Attending Unavailable Dave Gaines Referring Unavailable Wayt PA, Mario Primary Care Unavailable Dave Gaines Referring Unavailable Tea, Dave Attending Unavailable Wayt PA, Mario Primary Care Unavailable Wayt PA, Mario Attending Unavailable Wayt PA, Mario Primary Care Unavailable Wayt PA, Mario Referring Unavailable Wayt PA, Mario Attending Unavailable Wayt PA, Mario Primary Care Unavailable Wayt PA, Mario Referring Unavailable Wayt PA, Mario Attending Unavailable Wayt PA, Mario Referring Unavailable Wayt PA, Mario Primary Care Unavailable Tea, Dave Referring Unavailable Tea, Dave Attending Unavailable Wayt PA, Mario Primary Care Unavailable Wayt PA, Mario Primary Care Unavailable Dexter, Nickolas Referring Unavailable Dexter, Nickolas Attending Unavailable Wayt PA, Mario Attending Unavailable Wayt PA, Mario Primary Care Unavailable Wayt PA, Mario Referring Unavailable Wayt PA, Mario Attending Unavailable Wayt PA, Mario Referring Unavailable Wayt PA, Mario Primary Care Unavailable Medications Current Medications Medication Drug Class(es) Dates Sig (Normalized) Sig (Original) acetaminophen 500 mg oral capsule (20 sources) Start: 09-25-2024 take 2 capsules by mouth every four hours as needed Acetaminophen 500 mg capsule Active 1000 mg PO Q4H as needed September 25, 2024 12:00am Complies with drug therapy Start: 09-05-2024 End: 10-03-2024 take 2 tablets by mouth four times daily acetaminophen (TYLENOL) 500 mg tablet Take 2 tablets by mouth four times daily. 09/05/2024 10/03/2024 Discontinued (Course of therapy completed) aspirin 81 mg oral tablet (20 sources) Platelet Aggregation Inhibitor, Nonsteroidal Anti-inflammatory Drug Start: 12-06-2024 take 1 tablet by mouth once daily in the morning Aspirin 81 mg tablet Active 81 mg PO EVERY MORNING December 06, 2024 2:49pm Complies with drug therapy Start: 10-03-2024 End: 11-02-2024 take 1 tablet [...] 10/03/2024 Discontinued (Adjust Sig - Block E-Cancel) benoxinate hydrochloride 4 mg/ml / fluorescein sodium 2.5 mg/ml ophthalmic solution (3 sources) Diagnostic Dye Start: 12-20-2021 End: 12-20-2021 fluorescein-benoxinate 0.25-0.4 % 1 Drop (FLURESS) Start: 12-09-2021 End: 12-09-2021 fluorescein-benoxinate 0.25- 0.4 % 1 Drop (FLURESS) Start: 11-17-2021 End: 11-18-2021 fluorescein-benoxinate 0.25- 0.4 % 1 Drop (FLURESS) glucagon (rdna) 1 mg injection (11 sources) [...] EVERY MORNING 15 October 29, 2024 4:30pm Complies with drug therapy Start: 10-03-2024 inject 40 [IU] by duff [...] scale dose SC THREE TIMES A DAY 15 October 30, 2024 4:22pm Glucose [id number] = 0 units glucose 150 to 200 = 2 units, glucose 200 to 250 = 4 units, glucose 250 to 300 = 6 units, glucose 300 to 350 = 8 units, glucose 350 to 400 = 12 units and notify provider Complies with drug therapy Start: 09-25-2024 End: 10-16-2024 Insulin Lispro (Humalog [...] in the previous 24 hours. 09/05/2024 Active Lawanda Salgado-B.Bif-S.The rm 175 mg capsule (9 sources) Start: 09-25-2024 Lawanda Salgado-B.Bif-S.The rm 175 mg capsule Active NMA PO September 25, 2024 12:00am Complies with drug therapy Start: 09-25-2024 Start: 09-25-2024 John Salgado va-B.Bif-S.Therm 175 mg capsule Active NMA PO September 25, 2024 12:00am metoprolol tartrate 25 mg oral tablet (20 sources) beta-Adrenergic Gustavo Start: 09-25-2024 End: 10-16-2024 Metoprolol Tartrate 25 mg tablet Active 12.5 mg PO TWICE A DAY 180 October 16, 2024 4:57pm Complies with drug therapy Start: 09-05-2024 End: 01-01-2025 take 0.5 tablet by mouth every twelve hours metoprolol tartrate, short acting, (LOPRESSOR) 25 mg tablet Take 0.5 tablets by mouth every 12 hours. Hold if HR 90 tablet 10/03/2024 01/01/2025 Active oxyCODONE hydrochloride 5 mg oral tablet (2 sources) Opioid Agonist Start: 09-05-2024 End: 09-12-2024 take 1 tablet by mouth every four hours as needed oxyCODONE IR (ROXICODONE) 5 mg immediate release tablet Take 1 tablet by mouth every 4 hours as needed for pain for up to 7 days. 0 09/05/2024 09/12/2024 Active phenylephrine hydrochloride 25 mg/ml ophthalmic solution (3 sources) alpha-1 Adrenergic Agonist Start: 12-20-2021 End: 12-20-2021 PHENYLephrine 2.5 % 1 Drop (AK-DILATE, MARIA DE JESUS-SYNEPHRINE) Start: 12-09-2021 End: 12-09-2021 PHENYLephrine 2.5 % 1 Drop ( AK-DILATE, MARIA DE JESUS-SYNEPHRINE) Start: 11-17-2021 End: 11-18-2021 PHENYLephrine 2.5 % 1 Drop ( AK-DILATE, MARIA DE JESUS-SYNEPHRINE) polyethylene glycol 3350 39615 mg powder for oral solution (20 sources) Osmotic Laxative Start: 09-06-2024 End: 10-03-2024 Polyethylene Glycol 3350 (Miralax) 17 gram/dose powder Active 4 g PO daily as needed September 25, 2024 12:00am Complies with drug therapy proparacaine hydrochloride 5 mg/ml ophthalmic solution (2 sources) Local Anesthetic Start: 12-20-2021 End: 12-20-2021 proparacaine 0.5 % 1 Drop (ALCAINE) Start: 12-09-2021 End: 12-09-2021 proparacaine 0.5 % 1 Drop (A LCAINE) Selenium (2 sources) Start: 06-23-2023 take 200 ug by mouth once daily Selenium Active 200 MCG PO DAILY June 23, 2023 12:00am Sennosides (Senokot) 8.6 mg tablet (4 sources) Start: 09-25-2024 take 1 tablet by mouth once daily as needed Sennosides (Senokot) 8.6 mg tablet Active 8.6 mg PO daily as needed September 25, 2024 12:00am Thyroid (Pork) (Maintenance Supervisor Thyroid) 120 mg tablet (17 sources) Start: 06-13-2024 take 1 tablet by mouth once daily Thyroid (Pork) (Maintenance Supervisor Thyroid) 120 mg tablet Active 120 mg PO DAILY June 13, 2024 4:49pm Start: 06-13-2024 take 1 tablet by ervin th once daily Thyroid (Pork) (Maintenance Supervisor Thyroid) 120 mg tablet Active 120 mg PO DAILY June 13, 2024 4:49pm Start: 12-15-2023 End: 06-13-2024 take 1 tablet by mouth once daily Thyroid (Pork) (Maintenance Supervisor Thyroid) 120 mg tablet Discontinued 120 mg PO DAILY December 15, 2023 4:56pm June 13, 2024 4:50pm Start: 12-15-2023 End: 06-13-2024 take 1 tablet by mouth once daily Thyroid (Pork) (Maintenance Supervisor Thyroid) 120 mg tablet Discontinued 120 mg PO DAILY December 15, 2023 4:56pm June 13, 2024 4:50pm Start: 06-23-2023 End: 12-15-2023 take 1 tablet by mouth once daily Thyroid (Pork) (Maintenance Supervisor Thyroid) 120 mg tablet Discontinued 120 mg PO DAILY June 23, 2023 12:00am December 15, 2023 4:57pm Start: 06-23-2023 take 1 tablet by ervin th once daily Thyroid (Pork) (Maintenance Supervisor Thyroid) 120 mg tablet Active 120 MG PO DAILY June 23, 2023 12:00am tropicamide 10 mg/ml ophthalmic solution (3 sources) Anticholinergic Start: 12-20-2021 End: 12-20-2021 tropicamide 1 % 1 Drop (MYDRIACYL) Start: 12-09-2021 End: 12-09-2021 tropicamide 1 % 1 Drop (MYDR IACYL) Start: 11-17-2021 End: 11-18-2021 tropicamide 1 % 1 Drop (MYDR IACYL) Completed/Discontinued Medications Medication Drug Class(es) Dates Sig (Normalized) Sig (Original) Adren-all (12 sources) Start: 06-23-2023 Start: 06-23-2023 Adren-all Acti ve PO 1 [...] completed) ascorbic acid 1000 mg oral capsule (20 sources) Vitamin C Start: 06-23-2023 take 1 g by mouth once daily Start: 06-23-2023 take 1 g by mouth once daily A scorbic Acid (Vitamin C) Active 1 GM PO DAILY June 23, 2023 12:00am End: 09-05-2024 take 1 tablet by mouth once daily Ascorbic Acid 1,000 mg tablet Take 1,000 mg by mouth once daily. 09/05/2024 Discontinued Comment on above: 1 tab(s) once daily. atorvastatin 20 mg oral tablet (20 sources) HMG-CoA Reductase Inhibitor Start: End: take 2 tablets by mouth once daily Atorvastatin 20 mg tablet Discontinued 40 mg PO daily September 25, 2024 12:57pm October 16, 2024 4:06pm Start: 09-06-2024 End: 01-01-2025 take 1 tablet by mouth once daily in the morning Atorvastatin 40 mg tablet Active 40 mg PO EVERY MORNING September 25, 2024 12:00am Complies with drug therapy Start: 08-09-2024 End: 09-25-2024 take 1 tablet by mouth once daily Atorvastatin 20 mg tablet Discontinued 20 mg PO daily 30 2 August 09, 2024 12:00am September 25, 2024 1:02pm bacillus coagulans [id number] unt / inulin 250 mg oral capsule (8 sources) Bacillus coagula ns-Inulin (PROBIOTIC FORMULA, INULIN,) 1 billion-250 cell-mg cap once daily. 0 Active Bacillus coagula ns-Inulin (PROBIOTIC FORMULA, INULIN,) 1 billion-250 cell-mg cap 1 scoop 0 Active Comment on above: 1 scoop once daily. bethanechol chloride 5 mg oral tablet (20 sources) Cholinergic Muscarinic Agonist Start: 5 End: 5 take 3 tablets by mouth three times daily Bethanechol Chloride 5 mg tablet Discontinued 15 mg PO THREE TIMES A DAY 90 0 October 16, 2024 5:00pm December 06, 2024 2:49pm take 1 tablet by ervin th three times daily bethanechol (URECHOLINE) 5 mg tablet Vadim e 5 mg by mouth three times a day. Active Calcium Carbonate / vitamin D3 (8 sources) CALCIUM CARBONATE/VITAMIN D3 (VITAMIN D-3 ORAL) Take by mouth twice daily. 0 Active Comment on above: Take by mouth twice daily. cholecalciferol 0.125 mg oral capsule (20 sources) Vitamin D Start: 06-23-19 24 End: 12-22-19 24 take 3 capsules by mouth every week End: 09-05-2024 cholecalciferol (VITAMIN D3) 5,000 unit tab Take 5,000 Units by mouth. M-W-F 09/05/2024 Discontinued Comment on above: Take 5,000 Units by mouth. -W-F DIETARY SUPPLEMENT ORAL (8 sources) DIETARY SUPPLEME NT ORAL Take by mouth once daily. Nature-throid 0 Active Comment on above: Take by mouth once d aily. Nature-throid docusate sodium 50 mg / sennosides, chcf 8.6 mg oral tablet (11 sources) Start: 09-06-19 25 End: 10-04-19 25 take 2 tablets by mouth twice daily senna-docusate (SENNA-S) 8.6-50 mg per tablet Take 2 tablets by mouth two times a day. Hold for loose stool 09/05/2024 10/03/2024 Discontinued (Course of therapy completed) empagliflozin 25 mg oral tablet (20 sources) Sodium-Glucose Cotransporter 2 Inhibitor Start: 05-14-19 25 End: 09-26-19 25 take 1 tablet by mouth once daily in the morning Empagliflozin (Jardiance) 25 mg tablet Discontinued 25 mg PO EVERY MORNING 90 August 14, 2024 10:24pm September 25, 2024 [...] 09/06/2024 10/03/2024 Discontinued (Course of therapy completed) finasteride 5 mg oral tablet (20 sources) 5-alpha Reductase Inhibitor Start: 09-20-2024 End: 10-16-2024 take 1 tablet by mouth once daily in the morning Finasteride 5 mg tablet Discontinued 5 mg PO EVERY MORNING September 25, 2024 12:00am October 16, 2024 5:02pm folic acid 1 mg oral tablet (20 sources) Start: 09-06-2024 End: 10-16-2024 take 1 tablet by mouth once daily Folic Acid 1 mg tablet Discontinued 1 mg PO daily September 25, 2024 12:00am October 16, 2024 4:07pm furosemide 40 mg oral tablet (20 sources) Loop Diuretic Start: 09-06-2024 End: 10-16-2024 [...] above: Take by mouth twice daily. iodoral (12 sources) Start: 06-23-2023 take 12.5 mg by mout h once daily Start: 06-23-2023 take 12.5 mg by mouth [...] completed) Start: 09-20-2024 take 1 capsule by [facility] in the morning L. acidophilus-L. salivarius-B. bifidum-S. [...] 3 mg oral tablet (11 sources) Start: 09-06-19 End: 10-04-19 take 1 tablet by mouth every twenty-four hours as needed melatonin 3 mg tablet Take 1 tablet by mouth at bedtime as needed (insomnia). 09/05/2024 10/03/2024 Discontinued (Course of therapy completed) methocarbamol 500 mg oral tablet (20 sources) Muscle Relaxant Start: 09-06-19 End: 11-16-19 take 1 tablet by mouth three times daily as needed for muscle spasms Methocarbamol 500 mg tablet Discontinued 500 mg PO THREE TIMES A DAY as needed for muscle spasm September 25, 2024 12:00am November 15, 2024 1:49pm NATURE THYROID ORAL (8 sources) NATURE THYROID O RAL Nature Thyroid 0 Active Comment on above: Nature Thyroid omega-3s/dha/epa/fish oil/D3 (VITAMIN-D + OMEGA-3 ORAL) (8 sources) omega-3s/dha/epa /fis h oil/D3 (VITAMIN-D + OMEGA-3 ORAL) Vitamin D 0 Active Comment on above: Vitamin D ondansetron 4 mg disintegrating oral tablet (20 sources) Serotonin-3 Receptor Antagonist Start: 12-07-19 End: 01-09-20 take 1 tablet by mouth every six hours as needed for nausea and vomiting Ondansetron 4 mg tablet,disintegratin g Discontinued 4 mg PO EVERY 6 HOURS as needed for nausea and vomiting 20 December 06, 2024 12:00am January 08, 2025 2:39pm Start: 11-11-2024 End: 11-15-2024 take 1 tablet by mouth every six hours as needed for nausea and vomiting Ondansetron 4 mg tablet,disintegrating Discontinued 4 mg PO EVERY 6 HOURS as needed for nausea and vomiting 14 0 November 11, 2024 12:00am November 15, 2024 1:48pm Start: 09-05-2024 End: 10-03-2024 take 4 mg intravenously every six hours as needed ondansetron, PF, (ZOFRAN) 4 mg/2 mL soln Inject 4 mg intravenously every 6 hours as needed for nausea/vomiting. 09/05/2024 10/03/2024 Discontinued (Course of therapy completed) optiprostat (12 sources) Start: 06-23-2023 Start: 06-23-2023 optiprostat Ac tive PO 1 [...] on above: Take by mouth twice daily. pantoprazole 40 mg delayed release oral tablet (20 sources) Proton Pump Inhibitor Start: 09-07-19 End: 11-03-19 take 1 tablet by mouth once daily in the morning Pantoprazole 40 mg tablet,delayed release (DR/EC) Discontinued 40 mg PO EVERY MORNING September 25, 2024 12:00am October 16, 2024 4:08pm prednisoLONE acetate 10 mg/ml ophthalmic suspension (6 sources) Corticosteroid Start: 12-21-19 prednisoLONE acetate (PRED FORTE, ECONOPRED PLUS) 1 % ophthalmic suspension Use 1 Drop in the right eye four times daily. 5 mL 1 12/20/2021 Active Comment on above: Use 1 Drop in the ri ght eye four times daily. selenium (12 sources) End: 09-06-19 selenium Take by mouth once daily. 09/05/2024 Discontinued selenium Take by mouth once daily. Suspended selenium Take by mouth twice daily. 0 Active Comment on above: Take by mouth twice daily. Selenium 200 mcg capsule (10 sources) Start: 06-23-2023 End: 01-08-2025 take 1 capsule by mouth once daily Selenium 200 mcg capsule Discontinued 200 ug PO DAILY June 23, 2023 12:00am January 08, 2025 2:40pm Start: 06-23-2023 take 1 capsule by [facility] once daily Start: 06-23-2023 take 1 capsule by [facility] once daily Selenium 200 mcg capsule Active 200 ug PO DAILY June 23, 2023 12:00am sennosides, chcf 8.6 mg oral tablet (5 sources) Start: 09-25-2024 End: 01-08-2025 take 1 tablet by mouth once daily as needed Sennosides (Senokot) 8.6 mg tablet Discontinued 8.6 mg PO daily as needed September 25, 2024 12:00am January 08, 2025 2:35pm simethicone 80 mg chewable tablet (11 sources) Start: 09-05-2024 End: 10-03-2024 take 1 tablet by mouth every six hours as needed simethicone, chewable (MYLICON) 80 mg chewable tablet Take 1 tablet by mouth four times a day as needed (gas, bloating). 09/05/2024 10/03/2024 Discontinued (Course of therapy completed) sulfamethoxazole 800 mg / trimethoprim 160 mg oral tablet (12 sources) Dihydrofolate Reductase Inhibitor Antibacterial, Sulfonamide Antimicrobial Start: 09-25-2024 End: 11-15-2024 Sulfamethoxazole- Trimethoprim 800-160 mg tablet Discontinued {tbl} PO September 25, 2024 12:00am November 15, 2024 1:50pm sulfamethoxazole -trimethoprim (BACTRIM DS) 800-160 mg per tablet PLEASE SEE ATTACHED FOR DETAILED DIRECTIONS Active tamsulosin hydrochloride 0.4 mg oral capsule (20 sources) alpha-Adrenergic Gustavo Start: 09-19-2024 End: 10-16-2024 take 1 capsule by mouth at bedtime Tamsulosin 0.4 mg capsule Discontinued 0.4 mg PO AT BEDTIME September 25, 2024 12:00am October 16, 2024 5:02pm test boost max (12 sources) Start: 06-23-2023 End: 10-16-2024 test boost max Discontinued PO 1 time daily June 23, 2023 12:00am October 16, 2024 4:09pm On Hold: per ccf Start: 06-23-2023 test boost max Active PO 1 time daily June 23, 2023 12:00am On Hold: per [facility]cf Start: 06-23-2023 test boost max Active PO 1 time daily June 23, 2023 12:00am thyroid (chcf) 120 mg oral tablet (20 sources) Start: 09-29-2021 End: 09-05-2024 take 1 tablet by mouth once daily Thyroid (Pork) (Maintenance Supervisor Thyroid) 120 mg tablet Discontinued 120 mg PO DAILY December 15, 2023 4:56pm June 13, 2024 4:50pm Comment on above: Take 120 mg by mouth once daily. Problems Active Problems Problem Classification Problem Date Documented Da te Episodic/Chronic Abdominal hernia (20 sources) Umbilical hernia without obstruction or gangrene; Translations: [Umbilical hernia] Onset: 8 Resolved: 8 06-19-2017 Episodic Acute myocardial infarction (20 sources) Myocardial infarction; Translations: [Non-ST elevation (NSTEMI) myocardial infarction] Onset: 5 08-15-2024 Chronic Anal and rectal conditions (20 sources) Rectal fistula; Translations: [Rectal fistula] 06-23-2023 Episodic Cardiac dysrhythmias (8 sources) Supraventricular tachycardia; Translations: [SVT (supraventricular tachycardia) (HCC)] Onset: 5 12-11-2024 Chronic Cardiac dysrhythmias (5 sources) Palpitations; Translations: [Palpitations] 01-06-2025 Episodic Cataract (20 sources) Posterior subcapsular polar senile cataract of right eye; Translations: [Posterior subcapsular polar age-related cataract, right eye] Onset: Chronic Complications of surgical procedures or medical care (20 sources) Postoperative hypothyroidism; Translations: [Postprocedural hypothyroidism] Onset: 4 01-21-2022 Chronic Conditions associated with dizziness or vertigo (14 sources) Dizziness; Translations: [Dizziness and giddiness] Onset: 5 08-09-2024 Episodic Congestive heart failure; nonhypertensive (10 sources) Chronic systolic heart failure; Translations: [Chronic systolic (congestive) heart failure] Onset: 5 12-11-2024 Chronic Coronary atherosclerosis and other heart disease (20 sources) Coronary arteriosclerosis; Translations: [Atherosclerotic heart disease of [place] coronary artery with unstable angina pectoris] Onset: 5 08-20-2024 Chronic Diabetes mellitus with complications (20 sources) Type II diabetes mellitus uncontrolled; Translations: [Uncontrolled type 2 diabetes mellitus] Onset: 5 06-23-2023 Chronic Diabetes mellitus without complication (1 source) Prediabetes; Translations: [Prediabetes] Episodic Essential hypertension (6 sources) Essential hypertension; Translations: [Essential (primary) hypertension] Onset: 5 01-06-2025 Chronic Fluid and electrolyte disorders (1 source) Hypervolemia; Translations: [Fluid overload, unspecified] 09-16-2024 Episodic Genitourinary symptoms and ill-defined conditions (20 sources) Disorder of urinary tract; Translations: [Disorder of urinary system, unspecified] Onset: 5 Episodic Gout and other crystal arthropathies (6 sources) Acute gout; Translations: [Gout, unspecified] Onset: 5 01-21-2022 Chronic Hyperplasia of prostate (5 sources) Benign prostatic hyperplasia; Translations: [Benign prostatic hyperplasia without lower urinary tract symptoms] 01-06-2025 Chronic Nausea and vomiting (10 sources) Nausea and vomiting; Translations: [Nausea with vomiting, unspecified] 01-06-2025 Episodic Nutritional deficiencies (19 sources) Undernutrition; Translations: [Mild protein-calorie malnutrition] Onset: 5 08-23-2024 Chronic Other circulatory disease (20 sources) Elevated blood pressure; Translations: [Elevated blood-pressure reading, without diagnosis of hypertension] 12-25-2023 Episodic Other connective tissue disease (15 sources) H/O: gout; Translations: [Personal history of [...] bilateral] Onset: 1 Chronic Other gastrointestinal disorders (1 source) Irritable bowel syndrome with diarrhea; Translations: [Irritable bowel syndrome with diarrhea] Onset: 5 Chronic Other gastrointestinal disorders (15 sources) Diarrhea; Translations: [Diarrhea, unspecified] 12-06-2024 Episodic Other gastrointestinal disorders (6 sources) Constipation; Translations: [Constipation, unspecified] 01-08-2025 Episodic Other gastrointestinal disorders (1 source) Diarrhea, [...] Episodic Other nutritional; endocrine; and metabolic disorders (18 sources) Obese class I; Translations: [Obesity, Class I, BMI 30-34.9] Onset: 5 09-02-2024 Chronic Thyroid disorders (5 sources) Hypothyroidism; Translations: [Hypothyroidism, unspecified] 01-06-2025 Chronic Unclassified (1 source) Unknown / UNK(Unknown) Onset: 8 Unclassified (12 sources) N39.9 - Disorder of urinary system, unspecified Unclassified (1 source) Multiple vessel coronary artery disease Unclassified (6 sources) I25.10 - Atherosclerotic heart disease of [place] coronary artery without angina pectoris Unclassified (1 source) Established Patient Onset: 5 Unclassified (1 source) Supraventricular tachycardia, unspecified; Translations: [Supraventricular tachycardia, unspecified] Onset: 5 Past or Other Problems Problem Classification Problem Date Documented Da te Episodic/Chronic Acute and unspecified renal failure (19 sources) Acute renal failure syndrome; Translations: [Acute kidney failure, unspecified] Onset: 08-24-2024 08-24-2024 Episodic Blindness and vision defects (20 sources) Bilateral myopia of eyes; Translations: [Myopia, bilateral] Onset: 10-14-2020 10-14-2020 Episodic Complications of surgical procedures or medical care (18 sources) Iatrogenic hypotension; Translations: [Postprocedural hypotension] Onset: 08-31-2024 08-31-2024 Episodic Coronary atherosclerosis and other heart disease (1 source) Presence of aortocoronary bypass graft; Translations: [S/P CABG (coronary artery bypass graft)] Onset: 09-05-2024 Episodic Deficiency and other anemia (1 source) Anemia, unspecified; Translations: [Anemia, unspecified] Onset: 09-25-2024 Episodic E Codes: Fall (1 source) Unspecified fall, initial encounter; Translations: [Fall, initial encounter] Onset: 08-15-2024 Episodic Intestinal obstruction without hernia (19 sources) Intestinal obstruction co-occurrent and due to decreased peristalsis; Translations: [Ileus, unspecified] Onset: 08-23-2024 08-23-2024 Episodic Other aftercare (1 source) Encounter for other specified aftercare; Translations: [Encounter for care involving use of rehabilitation procedure] Onset: 10-02-2024 Episodic Other fractures (20 sources) Closed fracture thoracic vertebra; Translations: [Unspecified fracture of T7-T8 vertebra, subsequent encounter for fracture with routine healing] Onset: 08-21-2024 08-21-2024 Episodic Other fractures (1 source) Unspecified fracture of T7-T8 vertebra, subsequent encounter for fracture with routine healing; Translations: [Closed fracture of eighth thoracic vertebra with routine healing, unspecified fracture morphology, subsequent encounter] Onset: 08-31-2024 Episodic Other lower respiratory disease (20 sources) Restrictive lung disease; Translations: [Other disorders of lung] Onset: 08-21-2024 08-21-2024 Episodic Other screening for suspected conditions (not mental disorders or infectious disease) (20 sources) Patient encounter status; Translations: [Encounter for screening for malignant neoplasm of prostate] Onset: 07-10-2024 07-25-2023 Episodic Syncope (6 sources) Syncope; Translations: [Syncope and collapse] Onset: 08-15-2024 01-06-2025 Episodic Results Test Name Value Interpretation Reference Range Facility Cardiology Visit Reporton Cardiology Visit Report [facility] [address] [place] [address] OFFICE VISIT Date of Service: 01/22/25 MR#: [id number] Acct: [id number] Name: ARIS ATKINS Rep #: [id number] : 1955 Provider: Dr. Nickolas Renteria MD Age/Sex: 69/M [place] [facility] [place] Status: Signed HPI HPI History of Present Illness Details: The patient is a 69-year-old male with a history of CAD, status post CABG, and T2DM, presenting for follow-up. The patient reports a syncopal episode on August 15, during which he lost consciousness and sustained a fall, resulting in T8 and T9 vertebral fractures. He was initially evaluated in the ED, where initial X-rays did not reveal fractures. However, after persistent back pain, repeat imaging on the fifth day confirmed the fractures. He was noted to have a non-ST elevation myocardial infarction and due to his abnormal enzymes he underwent a cardiac catheterization which demonstrated left main trunk with mild disease in mid LAD with 99% stenosis of left circumflex artery with a proximal 90% stenosis first obtuse marginal branch which was 100% occluded in the proximal vessel had a foot 7090% focal stenosis. The second obtuse marginal branch had a proximal 99% stenosis. The right coronary artery was dominant severely diseased with a proximal 80% stenosis and mid 99% focal stenosis the PDA was small. Cardiac surgery was consulted he underwent a TTE which demonstrated ejection fraction of 24% and he also underwent a coronary bypass surgery with a ASHFORD to the LAD saphenous vein graft to the diagonal branch saphenous vein of the posterior descending artery. He was eventually extubated and did well in sinus rhythm and was scheduled to undergo cardiac rehabilitation which he had done here in [facility]. He has continued and completed that since. He denies any chest pain or shortness of breath or paroxysmal nocturnal dyspnea or pedal edema he has had no neck arm or jaw discomfort suggest angina. With regard to his thoracic fracture he was managed conservatively with immobilization using a brace, which he wore for 3.5 months. He denies any current back pain and has been cleared by his orthopedic surgeon. He reports a similar episode of dizziness, diaphoresis, and feeling cold and clammy two weeks prior to the syncopal event while at [employer]. He has a history of T2DM, recently started on insulin therapy, which he reports is managing his blood glucose levels well. He expresses a desire to transition back to oral medications. He has lost approximately 30 pounds since his cardiac event. His physical exam is unremarkable his electrocardiogram demonstrates sinus rhythm with a rate of 81 bpm premature ventricular complexes are noted a previous inferior infarct is present. He inquires about resuming activities such as bowling and golfing, as well as mowing lawns. He has a family history of CAD, with a sister who experienced a myocardial infarction at a young age. He is currently taking aspirin, a cholesterol-lowering medication, insulin, finasteride, and metoprolol. Intake Vital Signs 12/06/24 14:52 01/03/25 14:59 01/22/25 13:22 Height 5 ft 10 in 5 ft 10 in 5 ft 10 in Weight: 204 lb BMI 29.2 BP 122/70 H Blood Pressure Location Lt brachial Position Sitting Respiration 16 Pulse 77 Pulse Source Monitor Intake Visit Reasons: CAD (WAYT) Warehouse Operations Manager Required: No Accompanied by: Significant Other Is patient in pain?: No Allergies No Known Allergies Allergy (Unverified 01/22/25 13:26) Medications ???Medication ???Instructions ???Recorded ???Confirmed ???Type Adren-all PO 1XD 06/23/23 01/22/25 History Held on 09/25/24. Instructions: per [facility] ascorbic acid (vitamin C) 1,000 mg 1 g PO DAILY 06/23/23 01/22/25 H istory capsule Held on 09/25/24. Instructions: per [facility] iodoral 12.5 mg PO 1XD 06/23/23 01/22/25 H istory Held on 09/25/24. Instructions: per [facility] cholecalciferol (vitamin D3) 125 125 mcg PO .three times weekly 01/22/25 History mcg (5,000 unit) capsule Held on 09/25/24. Instructions: per [facility] L.acidophil,salivari- Bifido cap PO 09/25/24 01/22/25 History bifidum-Strep thermoph 175 mg capsule acetaminophen 500 mg capsule 1,000 mg PO Q4H PRN 09/25/2401/22 History polyethylene glycol 3350 17 4 g PO QDAY PRN 09/25/24 01/22/25 History gram/dose oral powder (Miralax) finasteride 5 mg tablet 5 mg PO QAM #90 tabs 10/16/2401/08 Rx metoprolol tartrate 25 mg tablet 12.5 mg (1/2 x 25 mg) PO BID #180 10/16/24 01/22/25 Rx tabs tamsulosin 0.4 mg capsule 0.4 mg PO QHS #90 caps 10/16/24 Rx insulin glargine 100 unit/mL (3 40 unit (0.4 mL) subcut QAM #15 mL 10/29/24 01/22/25 Rx mL) subcutaneous pen (Lantus Solostar U-100 Insuli (more content not included)... Normal [facility] Gastroenterology Visit Repor ton 01-08-2025 Gastroenterology Visit Report [facility] [address] [place] [address] OFFICE VISIT Date of Service: 01/08/25 MR#: [id number] Acct: [id number] Name: ARIS ATKINS Rep #: [id number] : 1955 Provider: AMADO Elliott Age/Sex: 69/M [place] [facility] [place] Status: Signed Intake Vital Signs 12/06/24 14:52 01/03/25 14:59 Height 5 ft 10 in 5 ft 10 in Intake Visit Reasons: BOWEL ISSUES LOOSE STOOLS CONSTIPATION Chief Complaint: NAUSEA AND DIARRHEA Warehouse Operations Manager Required: No Accompanied by: Is patient in pain?: No Allergies No Known Allergies Allergy (Unverified 12/06/24 14:48) Medications ???Medication ???Instructions ???Recorded ???Confirmed ???Type Adren-all PO 1XD 06/23/23 01/06/25 History Held on 09/25/24. Instructions: per [facility] ascorbic acid (vitamin C) 1,000 mg 1 g PO DAILY 06/23/23 01/06/25 H istory capsule Held on 09/25/24. Instructions: per [facility] iodoral 12.5 mg PO 1XD 06/23/23 01/06/25 H istory Held on 09/25/24. Instructions: per [facility] optiprostat PO 1XD 06/23/23 01/06/25 History Held on 09/25/24. Instructions: per [facility] cholecalciferol (vitamin D3) 125 125 mcg PO .three times weekly 01/06/25 History mcg (5,000 unit) capsule Held on 09/25/24. Instructions: per [facility] thyroid (pork) 120 mg tablet (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 06/13/24 01/08/25 Rx Thyroid) L.acidophil,salivari- Bifido cap PO 09/25/24 01/08/25 History bifidum-Strep thermoph 175 mg capsule acetaminophen 500 mg capsule 1,000 mg PO Q4H PRN 09/25/2401/08 History atorvastatin 40 mg tablet 40 mg PO QAM 09/25/24 01/08/25 His tory polyethylene glycol 3350 17 4 g PO QDAY PRN 09/25/24 01/08/25 History gram/dose oral powder (Miralax) finasteride 5 mg tablet 5 mg PO QAM #90 tabs 10/16/2405/04 Rx metoprolol tartrate 25 mg tablet 12.5 mg (1/2 x 25 mg) PO BID #180 10/16/24 01/08/25 Rx tabs tamsulosin 0.4 mg capsule 0.4 mg PO QHS #90 caps 10/16/24 Rx insulin glargine 100 unit/mL (3 40 unit (0.4 mL) subcut QAM #15 mL 10/29/24 01/08/25 Rx mL) subcutaneous pen (Lantus Solostar U-100 Insulin) pen needle, diabetic 32 gauge x #100 ea 10/29/24 01/06/25 Rx 5/32" (Saba Pen Needle) insulin lispro 100 unit/mL 1 sliding scale dose subcut TID 01/08/25 Rx subcutaneous pen (Humalog KwikPen #15 mL (U-100) Insulin) aspirin 81 mg tablet 81 mg PO QAM 12/06/24 01/08/25 His tory Have you fallen in the past year?: Yes PFSH Medical History (Updated 01/08/25 @ 15:07 by AMADO Elliott) UTI (urinary tract infection) Palpitations SVT (supraventricular tachycardia) Chronic systolic CHF (congestive heart failure) Hypothyroidism BPH (benign prostatic hyperplasia) Syncope Essential (primary) hypertension Diarrhea CAD, multiple vessel Abnormal EKG Old myocardial infarct Dizziness History of gout Rectal fistula Diabetes type 2, uncontrolled Back fracture ( 08/2024) Amputation of ring finger Hernia, umbilical Hernia, inguinal Gout Surgical History (Updated 01/06/25 @ 14:33 by Felisa Hardin RN) S/P CABG (coronary artery bypass graft) (08/30/24) History of hernia repair H/O thyroidectomy (Unknown) Family History (Updated 01/08/25 @ 14:48 by Brandy Tobias) Father Colon cancer Diabetes Hypertension Thyroid disorder Brother Crohn's disease Social History (Updated 01/08/25 @ 14:48 by Brandy Tobias) adopted: No household members: other details: richard housing: house number of children: 1 current occupational status: retired pets and animals: Yes (dogs x 2 ) pets and animals: dog(s) history of recent travel: No Smoking Status: Never smoker second hand exposure: No alcohol intake: former Previous attempts at quittin details: once or twice a month caffeine: Yes ("minimal") what type of physical activity do you participate in: walking frequency: daily duration: 30-45 minutes/day seatbelt use: always do you feel safe at home: Yes HPI HPI Chief Complaint: NAUSEA AND DIARRHEA Details: ARIS ATKINS, is a 69 M who presents to the office today for establishment. In August 2024 patient had a heart attack and during his heart attack he fell and broke his back. He was sent to [facility] and underwent CABG. Patient did not require surgery for his back but was in an immobilizer for 3 months. During this time patient had severe constipation which required a nasogastric tube placement. Since then he has had issues with intermittent diarrhea, nausea, vomiting and constipation. He has not had any diarrhea over the past month and is mostly now constipated. He would take Imodium on occasion when he had diarrhea. He has a bowel movement typically every few days. In the past he has also had cons (more content not included)... Normal [facility] Cardiac rehabilitation evalu ation reportOrdered By: Dileep Kern on 01-06-2025 Study report [facility] [address] [place] [address] CR - History & Physical MR#: [id number] Acct: [id number] Name: ARIS ATKINS Rep #:[id number] : 1955 69 From: Dileep So BS, RVT PCP: AMADO Serra DOS: 01/03/25 CR - History & Physical General Arrival date:: 01/03/25 Arrival time:: 14:01 Date of Referral:: 08/31/24 Date of CR Evaluation:: 01/03/25 Referring Physician: Dr. Gaines Primary Diagnosis: CABG History of Present Cardiac Event Onset Date Coronary Artery Bypass Graft:: Yes (onset 08/30/24) Vessel: ASHFORD-LAD, SVG-diag, SVG-PDA Medications Ambulatory Orders ?Medication ?Instructions ?Recorded Adren-all PO 1XD 06/23/23 Held on 09/25/24. Instructions: per [facility] ascorbic acid (vitamin C) 1,000 mg 1 g PO DAILY capsule Held on 09/25/24. Instructions: per [facility] iodoral 12.5 mg PO 1XD 06/23/23 Held on 09/25/24. Instructions: per [facility] optiprostat PO 1XD 06/23/23 Held on 09/25/24. Instructions: per [facility] selenium 200 mcg capsule 200 mcg PO DAILY 06/23/23 cholecalciferol (vitamin D3) 125 125 mcg PO .three dileep es weekly 12/22/23 mcg (5,000 unit) capsule Held on 09/25/24. Instructions: per [facility] thyroid (pork) 120 mg tablet (ELECTRICAL ENGINEERING DESIGNER 120 mg PO DAILY #90 t abs 06/13/24 Thyroid) L.acidophil,salivari- Bifido cap PO 09/25/24 bifidum-Strep thermoph 175 mg capsule acetaminophen 500 mg capsule 1,000 mg PO Q4H PRN 09/25 atorvastatin 40 mg tablet 40 mg PO QAM 09/25/24 polyethylene glycol 3350 17 4 g PO QDAY PRN 09/25/24 gram/dose oral powder (Miralax) sennosides 8.6 mg tablet (Senokot) 8.6 mg PO QDAY PRN 09/25/24 finasteride 5 mg tablet 5 mg PO QAM #90 tabs 5 metoprolol tartrate 25 mg tablet 12.5 mg (1/2 x 25 mg) PO BID #180 10/16/24 tabs tamsulosin 0.4 mg capsule 0.4 mg PO QHS #90 caps 10/16 insulin glargine 100 unit/mL (3 40 unit (0.4 mL) subcu t QAM #15 mL 10/29/24 mL) subcutaneous pen (Lantus Solostar U-100 Insulin) pen needle, diabetic 32 gauge x #100 ea 10/29/24 5/32" (Saba Pen Needle) insulin lispro 100 unit/mL 1 sliding scale dose subcut TID 10/30/24 subcutaneous pen (Humalog KwikPen #15 mL (U-100) Insulin) aspirin 81 mg tablet 81 mg PO QAM 12/06/24 ondansetron 4 mg disintegrating 4 mg PO Q6H PRN nausea and 12/06/24 tablet vomiting #20 tabs Allergies Allergies No Known Allergies Allergy (Unverified 12/06/24 14:48) Sleep Disorder Evaluation Hx of Sleep Apnea: No Do you snore loudly (louder than talking or can be heard through closed doors)?:No Do you often feel tired/ fatigued/ sleepy during daytime?: No Has anyone observed you stop breathing during sleep?: No History of Hypertension (for STOP score): No STOP Results: Negative Advanced Directives Advanced Directives Do you have a Healthcare Power of Envelope Stuffer?: No Living Will: No Advance Directives Information Provided: No Advance Directives on File: No DNR Order?:: No Past Medical History Covid-19 Screening Physicial Symptoms Other Clinical Concerns Exposure Risk Pertinent Comorbidities 65 years or older:: Yes Has a serious heart condition:: Yes Past Medical Illness Medical History Back fracture (~08/2024) Amputation of ring finger Hernia, umbilical Hernia, inguinal Gout Diabetes Past Surgical History Surgical History S/P CABG (coronary artery bypass graft) History of hernia repair H/O thyroidectomy (Unknown) Family History Summary Family History Father Colon cancer Diabetes Hypertension Thyroid disorder Social History Smoking History Smoking Status: Never smoker Alcohol Use Alcohol Usage: No Occupation Occupation (List type of work in comments):: Retired Social Environment Status Marital Status: Current Living Arrangements Living Environment:: Spouse Children How many children do you have?: 1 Do any of your children live nearby?: No Safety Do you feel safe in your surroundings?: Yes Assistance Do you need any assistance at home?: no Review of Systems Review of Systems Hints Review of Present Symptoms: Reports Fatigue, Appetite - Normal, Appetite - Special Diet and Sleep - Normal; Denies Shortness of Breath at Rest, Shortness of Breath with Exertion, PVD, Operative Discomfort, Angina, Wound Healing, Dizziness/Lightheaded ness, Heart Arrhythmia/Irregulari ties or Sexual Changes Pain Is Patient Pain Free?: Yes Risk Factor Assessment Chief Complaint Chief Complaint: CABG Vital Signs Pulse Ox: 98 Blood Pressure: 109/70 Pulse Pulse Rate: 55 Hypertension Blood Pressure Sitting - Right Arm: 109/70 Diabetes Diabetic History: Type II Obesity Height: 5 ft 10 in Weight:: 195 lb Weight in Pounds: 195.0 lbs Body Mass Index (BMI): 27.9 Physical Inactivity Physical Inactivity: Reg Exercise 30 min/day Risk Stratification Risk Guidelines: Lowest Risk: Risk Factor for Smoking, Moderate Risk: Risk Factor for Diabetes, Risk Fac (more content not included)... [facility] No Panel InformationOrdered By: Dileep Kern on 01-06-2025 [facility] [address] [place] [address] CR - Individual Treatment Plan MR#: [id number] Acct: [id number] Name: ARIS ATKINS Rep #:[id number] : 1955 69 From: Dileep So BS, RVT PCP: AMADO Serra DOS: 01/03/25 Diagnosis General Information Admitting Diagnosis: CABG Personal Learning Style:: Audio/Visual Barriers to Learning: No Barriers Stage of change r/t lifestyle modifications:: Contemplation Gave educational material for:: Treating Heart Disease, How The Heart Works, What it means to have Heart Disease, How Coronary Artery Disease is Diagnosed, Heart Procedures, What Heart Medications Do, Risk Factors & Modifications, Living an Active Life, Nutrition, Emotions & Heart Disease, Stress Management & Relaxation and Sleep Disorders & Heart Disease Education/Goals Cardiac Rehabilitation Goals Personal Goals: Initial Assessment: Improve energy level, Get back to work, or to resume activities faster, Improve knowledge of cardiac disease, Improve muscle strength and endurance and Control risk factors (learn risk factor modification) Scale for measuring improvement of personal goals Diagnosis & Disease Process Outcomes/Goals: Pt IDs own risk factors & lifestyle modifications by Session 10,Verbalizes symptoms of angina & response by session 3. and Pt independently manages Plan/Interventions: Assist Pt to ID & engage in lifestyle modification to reduceCVD risk, Instruct on individual risk factors, Review symptoms of angina & emergency actions, Review secondary diagnosis & identify educational needs. and Other see comment 30 day Reassessments:: Not Met 30 day Reassessments:: Not Met 30 day Reassessments:: Not Met 30 day Reassessments:: Not Met Final Reassessments:: Not Met Safety Referral to Physical Therapy: No Referral to [facility] Case Management: No Fall Risk Assessed:: Yes Assistive Devices:: None Exercise - Initial Assessment Visit Date of Eval: 01/03/25 (initial eval ) Mets: Pre-: >3 METS for 30 minutes by discharge, >5 METS for 30 minutes by discharge, >7 METS for 30 minutes by discharge and Unable to meet goal due to: (see comment below) Physician Prescribed Exercise Modalities: Treadmill, Rower, Schwinn Airdyne AD-7, SciFit Stepper, SciFit Pro-II Ergometer and SciFit Lateral [place] Frequency: 3x/week for 12 weeks [36 sessions] Intensity: 60-80% of age predicted maximum heart rate reserve Duration: 30 - 45 minutes Current METSs:: 3 Target Heart Rate:: 91-113 Resting Blood Pressure: 109/70 EKG Type: SR with frequent PVC Outcomes & Goals Goals:: Verbalizes understanding of THR, RPE & goal METS by session 6, Documentsin home exercise log/reports 30 min aerobic 5 day/wk by DC, Demonstrates accurate pulse taking by DC and Other additional outcome/goals: see below Intervention & Plan Exercise Program Goals: Instruct on personal THR & RPE, Instruct on MET level & personal MET goal, Show patient to take own pulse /validate performance until accurate, Instruct on home exercise and Other additional plan/int Physical Activity Home Exercise Physical Activity - Home Exercise: Safe Exercise, Warm-up, Self-monitoring, Cool-Down, Home Exercise > 30 min Daily and Sitting Time <3 hours/daily Outcomes & Goals Outcomes/Goals: Demonstrates correct Warm-up/exercise Cool-Down (S3) if = 2.5 METs, Verbalizes symptoms of exercise intolerance by Session 3 (S3), Demonstratesafe equipment use (S3) & follows exercise prescrition (6) and Other: See below Intervention & Plan Plan/Intervention: Instruct warm-up & cool-down if exercising at > 2 METs, Instruct on symptoms of exercise intolerance & actions to take, Instruct & monitor on saf, Assess intial functional capacity & safety risk and Other See below Nutrition - Initial Assessment Program Goals Nutrition Program Goals Patient has diagnosis of Hyperlipidemia (ICD E78)?: Yes Visit Date of Eval: 01/03/25 (Initial eval. Nutrition survey score 3.) Cholesterol/Lipids (Other Core Measures) Determine presence & major risk factors that modify LDL goal: Hypertension or hypertensive medication, Low HDL cholesterol <40 mg/dL*, Family history of premature CHD in Male < 55 years: female <65 yearsFa and Age men > 45 years; women >/= 55 years Outcomes/Goals: Pt IDs own risk factors & lifestyle modifications by Session 10,Verbalizes symptoms of angina & response by session 3. and Pt independently manages Intervention/Plan: Advocate for lipid panel cholesterol medication if applicable, Instruct on personal lipid levels & lipid goals/NCEP guidelines and Instruct on cholesterol Referral to dietitian:: No (declines) Diabetes (Other Core Measures) Diabetes Type: Diagnosis Type II ICD-10 E11 Insulin dependent injection/pump?: Yes Non-Insulin Dependent?: No Do you monitor your blood sugar at home?: Yes Referral to Diabetic Clinic:: No Weight Mgt (Other Care) Height: 5 ft 10 in Weight:: 195 lb BMI: 27.9 Diagnosis Overweight/Obesity BMI> 30% ICD-10 E66: No Diagnosis High BMI/Morbid Obesity BMI> 35% ICD-10 Z68: No Outcomes/Goals: Pt sets, (more content not included)... [facility] CR - History AND Physicalon 01-03-2025 CR - History & Physical [facility] [address] [place] [address] CR - History Physical MR#: [id number] Acct: [id number] Name: ARIS ATKINS Rep #: [id number] : 1955 69 From: Dileep So BS, RVT PCP: AMADO Serra DOS: 01/03/25 CR - History Physical General Arrival date:: 01/03/25 Arrival time:: 14:01 Date of Referral:: 08/31/24 Date of CR Evaluation:: 01/03/25 Referring Physician: Dr. Gaines Primary Diagnosis: CABG History of Present Cardiac Event Onset Date Coronary Artery Bypass Graft:: Yes (onset 08/30/24) Vessel: ASHFORD-LAD, SVG-diag, SVG-PDA Medications Ambulatory Orders ???Medication ???Instructions ???Recorded Adren-all PO 1XD 06/23/23 Held on 09/25/24. Instructions: per [facility] ascorbic acid (vitamin C) 1,000 mg 1 g PO DAILY 06/23/23 capsule Held on 09/25/24. Instructions: per [facility] iodoral 12.5 mg PO 1XD 06/23/23 Held on 09/25/24. Instructions: per [facility] optiprostat PO 1XD 06/23/23 Held on 09/25/24. Instructions: per [facility] selenium 200 mcg capsule 200 mcg PO DAILY 06/23/23 cholecalciferol (vitamin D3) 125 125 mcg PO .three times weekly mcg (5,000 unit) capsule Held on 09/25/24. Instructions: per [facility] thyroid (pork) 120 mg tablet (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 06/13/24 Thyroid) L.acidophil,salivari- Bifido cap PO 09/25/24 bifidum-Strep thermoph 175 mg capsule acetaminophen 500 mg capsule 1,000 mg PO Q4H PRN 09/25/24 atorvastatin 40 mg tablet 40 mg PO QAM 09/25/24 polyethylene glycol 3350 17 4 g PO QDAY PRN 09/25/24 gram/dose oral powder (Miralax) sennosides 8.6 mg tablet (Senokot) 8.6 mg PO QDAY PRN 09/25/24 finasteride 5 mg tablet 5 mg PO QAM #90 tabs 10/16/24 metoprolol tartrate 25 mg tablet 12.5 mg (1/2 x 25 mg) PO BID #180 10/16/24 tabs tamsulosin 0.4 mg capsule 0.4 mg PO QHS #90 caps 10/16/24 insulin glargine 100 unit/mL (3 40 unit (0.4 mL) subcut QAM #15 mL 10/29/24 mL) subcutaneous pen (Lantus Solostar U-100 Insulin) pen needle, diabetic 32 gauge x #100 ea 10/29/24 5/32" (Saba Pen Needle) insulin lispro 100 unit/mL 1 sliding scale dose subcut TID subcutaneous pen (Humalog KwikPen #15 mL (U-100) Insulin) aspirin 81 mg tablet 81 mg PO QAM 12/06/24 ondansetron 4 mg disintegrating 4 mg PO Q6H PRN nausea and 5 tablet vomiting #20 tabs Allergies Allergies No Known Allergies Allergy (Unverified 12/06/24 14:48) Sleep Disorder Evaluation Hx of Sleep Apnea: No Do you snore loudly (louder than talking or can be heard through closed doors)?: No Do you often feel tired/ fatigued/ sleepy during daytime?: No Has anyone observed you stop breathing during sleep?: No History of Hypertension (for STOP score): No STOP Results: Negative Advanced Directives Advanced Directives Do you have a Healthcare Power of Envelope Stuffer?: No Living Will: No Advance Directives Information Provided: No Advance Directives on File: No DNR Order?:: No Past Medical History Covid-19 Screening Physicial Symptoms Other Clinical Concerns Exposure Risk Pertinent Comorbidities 65 years or older:: Yes Has a serious heart condition:: Yes Past Medical Illness Medical History Back fracture ( 08/2024) Amputation of ring finger Hernia, umbilical Hernia, inguinal Gout Diabetes Past Surgical History Surgical History S/P CABG (coronary artery bypass graft) History of hernia repair H/O thyroidectomy (Unknown) Family History Summary Family History Father Colon cancer Diabetes Hypertension Thyroid disorder Social History Smoking History Smoking Status: Never smoker Alcohol Use Alcohol Usage: No Occupation Occupation (List type of work in comments):: Retired Social Environment Status Marital Status: Current Living Arrangements Living Environment:: Spouse Children How many children do you have?: 1 Do any of your children live nearby?: No Safety Do you feel safe in your surroundings?: Yes Assistance Do you need any assistance at home?: no Review of Systems Review of Systems Hints Review of Present Symptoms: Reports Fatigue, Appetite - Normal, Appetite - Special Diet and Sleep - Normal; Denies Shortness of Breath at Rest, Shortness of Breath with Exertion, PVD, Operative Discomfort, Angina, Wound Healing, Dizziness/Lightheaded ness, Heart Arrhythmia/Irregulari ties or Sexual Changes Pain Is Patient Pain Free?: Yes Risk Factor Assessment Chief Complaint Chief Complaint: CABG Vital Signs Pulse Ox: 98 Blood Pressure: 109/70 Pulse Pulse Rate: 55 Hypertension Blood Pressure Sitting - Right Arm: 109/70 Diabetes Diabetic History: Type I (more content not included)... [facility] CNPNon 12-18-2024 CNPN Normal [facility] CNOVon 12-16-2024 CNOV [facility] XR THORACIC 3V AP/LAT/SWIMME RSon 12-16-2024 XR THORACIC 3V AP/LAT/SWIMMERS [facility] Clostridium Diff Toxin/Agon 12-14-2024 CDIFF (EIA) UNABLE TO PERFORM TEST BY PCR METHOD, INVALID RESULT X2 Interpretation of C. diff by EIA Method C diff Stl Ql Negative for toxigenic C. difficile, or below limit of detection. C. difficile Antigen Negative C. diff A/B Antigen C. difficile Toxin Negative C. diff Toxin Normal [facility] Comment on above: Performed By: #### M 100.6795 #### [facility] [address] [place], [address] ENTERIC PATHOGEN PANEL STOOL on 12-14-2024 EP PANEL Normal Reference Range = Not Detected Not detected for Campylobacter group, Salmonella species, Shigella species, Vibrio Group, Yersinia enterocolitica, EHEC (Shiga Toxin 1, Shiga Toxin 2), Norovirus Gl/Gll, and Rotavirus A. Other common stool pathogens are not detected on this panel include: Aeromonas/Plesiomonas or parasites. Order testing for these organisms separately if suspected. This is an amplified DNA test which makes it both specific and sensitive. CAMPYLOBACTER Not Detected Norovirus Not Detected Rotavirus Not Detected Salmonella Not Detected Shiga Toxin Not Detected Shigella sp. Not Detected VIBRIO Not Detected Yersinia Not Detected Normal [facility] Comment on above: Performed By: #### M 100.637 #### [facility] [address] [place], [address] Stool Clostridium difficile detectionOrdered By: Mario Bellamy on 12-14-2024 C. difficile Ql (Stl) [facility] Celiac Disease Profileon ENDOMYSIAL IGA Negative Normal Negative [facility] Comment on above: Performed By: #### L 500.4100, L3410.2400, L100.0100, L500.4050 #### [facility] [address] [place], [address] IMMUNOGLOB A QN 242 mg/dL Normal 61-437 [facility] Comment on above: Result Comment: Perf ormed at: - [facility] [address] [id number] Sales And Service Change Leader: Jenaro Ambrocio PhD, Phone: [phone] Performed By: #### L 500.4100, L3410.2400, L100.0100, L500.4050 #### [facility] [address] [place], [address] tTG IGA <2 Normal 0-3 [facility] Comment on above: Result Comment: Nega tive 0 - 3 Weak Positive 4 - 10 Positive >10 Tissue Transglutaminase (tTG) has been identified as the endomysial antigen. Studies have demonstr- ated that endomysial IgA antibodies have over 99% specificity for gluten sensitive enteropathy. Performed By: #### L 500.4100, L3410.2400, L100.0100, L500.4050 #### [facility] [address], [address] Absolute lymphocyte countOrd ered By: Mario Bellamy on 12-11-2024 Lymphocytes Auto (Unsp spec) [#/Vol] 3.17 10*3/uL 0.83-4.51 [facility] Absolute neutrophil countOrd ered By: Mario Bellamy on 12-11-2024 Neutrophils (Bld) [#/Vol] 6.0 10*3/uL 2.0-7.7 [facility] Anion gap in Serum or Plasma Ordered By: Mario Bellamy on 12-11-2024 Anion gap [Moles/Vol] 12 mmol/L 5-15 [facility] Automated lymphocyte count a s percentage of total leukocytesOrdered By: Mario Bellamy on 12-11-2024 Lymphocytes/100 WBC Auto (Unsp spec) 24.4 % 19-41 [facility] BUN/creatinine ratioOrdered By: Mario Bellamy on 12-11-2024 Urea nitrogen/Creatinine [Mass ratio] 20.5 mg/mg High 10-20 [facility] Basophil percentageOrdered B y: Mario Bellamy on 12-11-2024 Basophils/100 WBC (Bld) 0.5 % 0-1 [facility] Bilirubin, totalOrdered By: Mario Bellamy on 12-11-2024 Bilirubin [Mass/Vol] 0.50 mg/dL 0.00-1.30 [facility] Blood manual differential co mment interpretation (narrative result)Ordered By: Mario Bellamy on 12-11-2024 Manual differential comment Shawn (Bld) [Interp] COMMENT [facility] Comment on above: EOSINOPHILIA. CBC W/Diff, Automatedon - SMEAR COMMENT COMMENT Normal [facility] Comment on above: Result Comment: EOSI NOPHILIA. Performed By: #### L 500.4100, L3410.2400, L100.0100, L500.4050 #### [facility] [address] [place], [address] CNOVon 12-11-2024 CNOV Normal [facility] Calculated very low density lipoprotein (VLDL) cholesterol measurementOrdered By: Mario Bellamy on 12-11-2024 Calculated very low density lipoprotein (VLDL) cholesterol measurement 22 mg/dL 5-40 [facility] Carbon dioxide, total [Moles /volume] in Central venous bloodOrdered By: Mario Bellamy on 12-11-2024 CO2 [Moles/Vol] 21.2 mmol/L 21.0-32.0 [facility] Chloride assayOrdered By: Debby Bellamy on 12-11-2024 Chloride [Moles/Vol] 107 mmol/L 98-108 [facility] Comprehensive Metabolic Prof ilon 12-11-2024 Albumin [Mass/Vol] 3.8 g/dL Normal 3.4-4.8 [facility] Comment on above: Performed By: #### L 500.4100, L3410.2400, L100.0100, L500.4050 #### [facility] [address] [place], [address] Albumin/Globulin [Mass ratio] 1.2 {ratio} Normal 0.9-2.4 [facility] Comment on above: Performed By: #### L 500.4100, L3410.2400, L100.0100, L500.4050 #### [facility] [address] [place], [address] ALK PHOS 91 U/L Normal 40-129 [facility] Comment on above: Performed By: #### L 500.4100, L3410.2400, L100.0100, L500.4050 #### [facility] [address] [place], [address] ALT [Catalytic activity/Vol] 12 U/L Normal <=46 [facility] Comment on above: Performed By: #### L 500.4100, L3410.2400, L100.0100, L500.4050 #### [facility] [address] [place], [address] AST [Catalytic activity/Vol] 19 U/L Normal <=37 [facility] Comment on above: Performed By: #### L 500.4100, L3410.2400, L100.0100, L500.4050 #### [facility] [address] [place], [address] Bilirubin [Mass/Vol] 0.50 mg/dL Normal 0.00-1.30 [facility] Comment on above: Performed By: #### L 500.4100, L3410.2400, L100.0100, L500.4050 #### [facility] [address] [place], [address] BUN/CRE 20.5 RATIO High 10-20 [facility] Comment on above: Performed By: #### L 500.4100, L3410.2400, L100.0100, L500.4050 #### [facility] [address] [place], [address] Calcium [Mass/Vol] 9.3 mg/dL Normal 7.6-11.0 [facility] Comment on above: Performed By: #### L 500.4100, L3410.2400, L100.0100, L500.4050 #### [facility] [address] [place], [address] Chloride [Moles/Vol] 107 mmol/L Normal 98-108 [facility] Comment on above: Performed By: #### L 500.4100, L3410.2400, L100.0100, L500.4050 #### [facility] [address] [place], [address] CO2 [Moles/Vol] 21.2 mmol/L Normal 21.0-32.0 [facility] Comment on above: Performed By: #### L 500.4100, L3410.2400, L100.0100, L500.4050 #### [facility] [address] [place], [address] Creatinine [Mass/Vol] 1.32 mg/dL High 0.70-1.20 [facility] Comment on above: Performed By: #### L 500.4100, L3410.2400, L100.0100, L500.4050 #### [facility] [address] [place], [address] GAP 12 Normal 5-15 [facility] Comment on above: Performed By: #### L 500.4100, L3410.2400, L100.0100, L500.4050 #### [facility] [address] [place], [address] GFR/1.73 sq M.predicted among non-blacks MDRD (S/P/Bld) [Vol rate/Area] 58 mL/min/{1.73_m2} Low >60 [facility] Comment on above: Result Comment: mL/m in/1.73m2 CKD-EPI Creatinine Equation (2020) Performed By: #### L 500.4100, L3410.2400, L100.0100, L500.4050 #### [facility] [address] [place], [address] Globulin (S) [Mass/Vol] 3.3 g/dL Normal 2.2-4.2 [facility] Comment on above: Performed By: #### L 500.4100, L3410.2400, L100.0100, L500.4050 #### [facility] [address] [place], [address] Glucose [Mass/Vol] 95 mg/dL Normal 70-99 [facility] Comment on above: Performed By: #### L 500.4100, L3410.2400, L100.0100, L500.4050 #### [facility] [address] [place], [address] Potassium [Moles/Vol] 3.5 mmol/L Normal 3.3-5.1 [facility] Comment on above: Performed By: #### L 500.4100, L3410.2400, L100.0100, L500.4050 #### [facility] [address] [place], [address] Sodium [Moles/Vol] 140 mmol/L Normal 133-145 [facility] Comment on above: Performed By: #### L 500.4100, L3410.2400, L100.0100, L500.4050 #### [facility] [address] [place], [address] T PROT 7.1 g/dL Normal 5.9-8.4 [facility] Comment on above: Performed By: #### L 500.4100, L3410.2400, L100.0100, L500.4050 #### [facility] [address] [place], [address] Urea nitrogen [Mass/Vol] 27 mg/dL High 4-19 [facility] Comment on above: Performed By: #### L 500.4100, L3410.2400, L100.0100, L500.4050 #### [facility] [address] [place], [address] ECG B/O W INTERP (MED OFFICE )on 12-11-2024 Normal sinus rhythm at 80 bpm, [place] 160, QRS 90, QTc 440, polymorphic PVCs. [facility] Eosinophil percentageOrdered By: Mario Bellamy on 12-11-2024 Eosinophils/100 WBC (Bld) 22.1 % High 0-5 [facility] Erythrocyte distribution wid th ratioOrdered By: Mario Bellamy on 12-11-2024 Erythrocyte distribution width (RBC) [Ratio] 15.3 % High 11.6-14.6 [facility] Erythrocyte distribution wid th standard deviationOrdered By: Mario Bellamy on 12-11-2024 Erythrocyte distribution width (RBC) [Ratio] 47.4 fl High 35.1-43.9 [facility] Glomerular filtration rate ( GFR) estimation/1.73 sq m using serum, plasma, or whole bOrdered By: Mario Bellamy on 12-11-2024 GFR/1.73 sq M.predicted among non-blacks MDRD (S/P/Bld) [Vol rate/Area] 58 mL/min/{1.73_m2} Low >60 [facility] Comment on above: mL/min/1.73m2 CKD-EP I Creatinine Equation (2020) Hematocrit Auto (Bld) [Volum e fraction]Ordered By: Mario Bellamy on 12-11-2024 Hematocrit (Bld) [Volume fraction] 41.1 % 40-54 [facility] Hemoglobin measurementOrdere d By: Mario Bellamy on 12-11-2024 Hemoglobin (Bld) [Mass/Vol] 14.2 g/dL 13.0-16.5 [facility] Immature granulocytes/100 WB C Auto (Bld)Ordered By: Mario Bellamy on 12-11-2024 Immature granulocytes/100 WBC (Bld) 0.800 % 0.0-0.9 [facility] Comment on above: IG% - Immature Granu locytes (promyelocytes, myelocytes and metamyelocytes) > 1% indicates that a LEFT SHIFT is Present. LDL calc ser/plasOrdered By: Mario Bellamy on 12-11-2024 Cholesterol in LDL [Mass/Vol] 16 mg/dL [facility] Comment on above: Halcrxdnow=473-885 m g/dL & Higher Ewbt=917 mg/dL or greaterFriedwald Equation for LDL-C Laboratory - Chemistry and C hemistry - challengeOrdered By: Mario Bellamy on 12-11-2024 AST [Catalytic activity/Vol] 19 U/L <38 [facility] Lipid Profileon 12-11-2024 CHOL:HDL 2.09 Normal [facility] Comment on above: Performed By: #### L 500.4100, L3410.2400, L100.0100, L500.4050 #### [facility] [address] [place], [address] Cholesterol [Mass/Vol] 73 mg/dL Normal <=200 [facility] Comment on above: Result Comment: Chol esterol level, Desirable <200 mg/dL Borderline high cholesterol 200-239 mg/dL High cholesterol >=240 mg/dL Recommendations of the NCEP Adult Treatment Panel for the following risk-cutoff thresholds for the [place] population. Performed By: #### L 500.4100, L3410.2400, L100.0100, L500.4050 #### [facility] [address] [place], [address] Cholesterol in HDL [Mass/Vol] 35 mg/dL Low [facility] Comment on above: Result Comment: Leanna onal Cholesterol Education Program (NCEP) guidelines: <40 mg/dL: Low HDL-cholesterol (major risk factor for CHD) >= 60 mg/dL: High HDL-cholesterol (negative risk factor for CHD) HDL-cholesterol is affected by a number of factors, e.g. smoking, exercise, hormones, sex and age. Performed By: #### L 500.4100, L3410.2400, L100.0100, L500.4050 #### [facility] [address] [place], [address] Cholesterol in LDL [Mass/Vol] 16 mg/dL Normal [facility] Comment on above: Result Comment: Bord lvzlwp=820-810 mg/dL Higher Lcts=932 mg/dL or greater Friedwald Equation for LDL-C Performed By: #### L 500.4100, L3410.2400, L100.0100, L500.4050 #### [facility] [address] [place], [address] Cholesterol in VLDL [Mass/Vol] 22 mg/dL Normal 5-40 [facility] Comment on above: Performed By: #### L 500.4100, L3410.2400, L100.0100, L500.4050 #### [facility] [address] [place], [address] Triglyceride [Mass/Vol] 110 mg/dL Normal [facility] Comment on above: Result Comment: The drugs N-Acetylcysteine and Metamizole may falsely depress this assay. Normal range: <150 mg/dL Borderline High: 150-199 mg/dL High: 200-499 mg/dL Very High: >500 mg/dL Performed By: #### L 500.4100, L3410.2400, L100.0100, L500.4050 #### [facility] [address] [place], [address] MCV (mean corpuscular volume ) determinationOrdered By: Mario Bellamy on 12-11-2024 MCV (RBC) [Entitic vol] 86.5 fL 80-94 [facility] Mean corpuscular hemoglobin (MCH) determinationOrdered By: Mario Bellamy on 12-11-2024 MCH (RBC) [Entitic mass] 29.9 pg 27.0-32.0 [facility] Mean corpuscular hemoglobin concentration (MCHC) determinationOrdered By: Mario Bellamy on 12-11-2024 MCHC (RBC) [Mass/Vol] 34.5 g/dL 32-36 [facility] Mean platelet volume determi nationOrdered By: Mario Bellamy on 12-11-2024 Platelet mean volume (Bld) [Entitic vol] 8.9 fL 6.2-12.0 [facility] Monocyte percentageOrdered B y: Mario Bellamy on 12-11-2024 Monocytes/100 WBC (Bld) 5.7 % 0-10 [facility] Neutrophil percentageOrdered By: Mario Bellamy on 12-11-2024 Neutrophils/100 WBC (Bld) 46.5 % Low 47-70 [facility] Nucleated red blood cell per centageOrdered By: Mario Bellamy on 12-11-2024 Nucleated RBC/100 WBC (Bld) [Ratio] 0 % 0-5 [facility] Platelet countOrdered By: Debby ttjian Bellamy on 12-11-2024 Platelets (Bld) [#/Vol] 241 10*3/uL 150-450 [facility] Potassium measurement (mass/ volume)Ordered By: Mario Bellamy on 12-11-2024 Potassium (Unsp spec) [Mass/Vol] 3.5 mmol/L 3.3-5.1 [facility] RBC Auto (Bld) [#/Vol]Ordere d By: Mario Bellamy on 12-11-2024 RBC (Bld) [#/Vol] 4.75 10*6/uL 4.6-6.2 [facility] Screening total cholesterol/ high density lipoprotein (HDL) cholesterol ratioOrdered By: Mario Bellamy on 12-11-2024 Cholesterol.total/Choles terol in HDL [Mass ratio] 2.09 {ratio} [facility] Serum creatinine measurement (mass/volume)Ordered By: Mario Bellamy on 12-11-2024 Creatinine [Mass/Vol] 1.32 mg/dL High 0.70-1.20 [facility] Serum globulin measurementOr dered By: Mario Bellamy on 12-11-2024 Globulin (S) [Mass/Vol] 3.3 g/dL 2.2-4.2 [facility] Serum glucose measurement (m ass/volume)Ordered By: Mario Bellamy on 12-11-2024 Glucose [Mass/Vol] 95 mg/dL 70-99 [facility] Serum or plasma IgA measurem ent (mass/volume)Ordered By: Mario Bellamy on 12-11-2024 IgA [Mass/Vol] 242 mg/dL 61-437 [facility] Comment on above: Performed at: [address] [id number] Director: Jenaro Ambrocio PhD, Phone: [phone] Serum or plasma alanine sullivan otransferase (ALT) measurementOrdered By: Mario Bellamy on 12-11-2024 ALT [Catalytic activity/Vol] 12 U/L <47 [facility] Serum or plasma albumin jolene urement (mass/volume)Ordered By: Mario Bellamy on 12-11-2024 Albumin [Mass/Vol] 3.8 g/dL 3.4-4.8 [facility] Serum or plasma albumin/glob ulin mass ratioOrdered By: Mario Bellamy on 12-11-2024 Albumin/Globulin [Mass ratio] 1.2 {ratio} 0.9-2.4 [facility] Serum or plasma alkaline janae sphatase measurementOrdered By: Mario Bellamy on 12-11-2024 ALP [Catalytic activity/Vol] 91 U/L 40-129 [facility] Serum or plasma calcium jolene urement (mass/volume)Ordered By: Mario Bellamy on 12-11-2024 Calcium [Mass/Vol] 9.3 mg/dL 7.6-11.0 [facility] Serum or plasma cholesterol in HDL measurement (mass/volume)Ordered By: Mario Bellamy on 12-11-2024 Cholesterol in HDL [Mass/Vol] 35 mg/dL Low >40 [facility] Comment on above: National Cholesterol Education Program (NCEP) guidelines:<40 mg/dL: Low HDL-cholesterol (major risk factor for CHD)>= 60 mg/dL: High HDL-cholesterol (negative risk factor for CHD)HDL-cholesterol is affected by a number of factors, e.g. smoking, exercise, hormones, sex and age. Serum or plasma cholesterol measurement (mass/volume)Ordered By: Mario Bellamy on 12-11-2024 Cholesterol [Mass/Vol] 73 mg/dL <201 [facility] Comment on above: Cholesterol level, D esirable <200 mg/dLBorderline high cholesterol 200-239 mg/dLHigh cholesterol >=240 mg/dLRecommendations of the NCEP Adult Treatment Panel for the following risk-cutoff thresholds for the [place] population. Serum or plasma urea nitroge n measurement (mass/volume)Ordered By: Mario Bellamy on 12-11-2024 Urea nitrogen [Mass/Vol] 27 mg/dL High 4-19 [facility] Serum tissue transglutaminas e (tTG) IgA antibody assay (units/volume)Ordered By: Mario Bellamy on 09-03-2025 tTG IgA Qn (S) <2 U/mL 0-3 [facility] Comment on above: Negative 0 - 3 Weak Positive 4 - 10 Positive >10 Tissue Transglutaminase (tTG) has been identified as the endomysial antigen. Studies have demonstr- ated that endomysial IgA antibodies have over 99% specificity for gluten sensitive enteropathy. Sodium levelOrdered By: Slim Bellamy on 12-11-2024 Sodium [Moles/Vol] 140 mmol/L 133-145 [facility] Total proteinOrdered By: Luis Alberto Bellamy on 12-11-2024 Protein [Mass/Vol] 7.1 g/dL 5.9-8.4 [facility] Triglycerides measurementOrd ered By: Mario Bellamy on 12-11-2024 Triglyceride [Mass/Vol] 110 mg/dL <199 [facility] Comment on above: The drugs N-Acetylcy steine and Metamizole may falsely depress this assay. Normal range: <150 mg/dLBorderline High: 150-199 mg/dLHigh: 200-499 mg/dLVery High: >500 mg/dL White blood cell (WBC) count Ordered By: Mario Bellamy on 12-11-2024 WBC (Bld) [#/Vol] 13.0 10*3/uL High 4.4-11.0 [facility] Internal Medicine Office Vis iton 12-06-2024 Internal Medicine Office Visit [facility] [place] [address] [place] [address] OFFICE VISIT Date of Service: 12/06/24 MR#: [id number] Acct: [id number] Name: ARIS ATKINS Rep #: [id number] : 1955 Provider: AMADO Serra Age/Sex: 69/M Location[place] [facility] Status: Signed Intake Vital Signs 11/15/24 13:04 [...] per [facility] thyroid (pork) 120 mg tablet (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 [facility] Medical History Back fracture ( 08/2024) Amputation [...] once or twice a month caffeine: Yes ("minimal") what type of physical activity do you [...] this week. (more content not included)... Normal [facility] - Hematology and Cell countsOrdered By: Maroi Bellamy on 11-15-2024 HbA1c (Bld) [Mass fraction] 6.8 % High 4.2-6.3 [facility] CNOVon 11-13-2024 CNOV Normal [facility] XR THORACIC 2V AP/LATon 08-0 XR THORACIC 2V AP/LAT Normal [facility] Internal Medicine Office Vis iton 10-16-2024 Internal Medicine Office Visit [facility] [address] [place] [address] [place] [address] OFFICE VISIT Date of Service: 10/16/24 MR#: [id number] Acct: [id number] Name: ARIS ATKINS Rep #: [id number] : 1955 Provider: AMADO Serra Age/Sex: 69/M Location: [facility] Status: Signed Intake Vital Signs 08/09/24 08:07 [...] air Intake Visit Reasons: 1 M FU 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 Pt wanted to discuss meds. He was not on insulin previously and doesn't want to keep poking himself PFSH Medical History Amputation of ring finger Hernia, umbilical Hernia, inguinal Gout Diabetes Surgical History S/P CABG (coronary artery bypass graft) History of hernia repair H/O thyroidectomy (Unknown) Family History Father Colon cancer Diabetes Hypertension Thyroid disorder Social History adopted: No household members: other details: [place] housing: house number of children: 1 current occupational status: retired pets and animals: Yes (dogs x 2 ) pets and animals: dog(s) history of recent travel: No Smoking Status: Never smoker second hand exposure: No alcohol intake: current alcohol intake frequency: other Previous attempts at quittin details: once or twice a month caffeine: Yes ("minimal") what type of physical activity do you [...] pain i (more content not included)... Normal [facility] 10-03-2024 [facility] CNon 10-02-2024 [facility] XR THORACIC 2V AP/LATon 09-09 XR THORACIC 2V AP/LAT Normal [facility] CNPNon 09-30-2024 CNPN Normal [facility] Internal Medicine Office Vis itoeris 09-25-2024 Internal Medicine Office Visit [facility] [address] [place] [address] [place] [address] OFFICE VISIT Date of Service: 09/25/24 MR#: [id number] Acct: [id number] Name: ARIS ATKINS Rep #: [id number] : 1955 Provider: AMADO Serra Age/Sex: 69/M Location[place] [facility] Status: Signed Intake Vital Signs 08/09/24 08:07 [...] air Intake Visit Reasons: FOLLOW UP FROM [facility] Chief Complaint: 3m f/u 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 Has an appointment w/ [facility] DEVELOPMENT AND HOUSING DIRECTOR provider on 09/30 and cardiology Karoline celis on 10/04/24 and all through [facility]. Pt states he is doing, but appears highly aggravated. Pt does not have discharge ppwk. [facility] release signed, [facility] Medical History (Updated 09/26/24 @ 11:59 by [...] at quittin detai (more content not included)... [facility] 09-23-2024 [facility] 09-20-2024 [facility] Basic metabolic 2000 panelon 09-19-2024 Anion gap [Moles/Vol] 11 mmol/L 8 - 15 mmol/L [facility] Calcium [Mass/Vol] 8.6 mg/dL 8.5 - 10. 2 mg/dL [facility] Chloride [Moles/Vol] 103 mmol/L 98 - 10 7 mmol/L [facility] CO2 [Moles/Vol] 22 mmol/L 22 - 30 mmol/L [facility] Creatinine [Mass/Vol] 1.08 mg/dL 0.73 - 1.22 mg/dL [facility] GFR/1.73 sq M.predicted among non-blacks MDRD (S/P/Bld) [Vol rate/Area] 74 mL/min/{1.73_m2} - PINF [facility] Comment on above: Estimated Glomerular Filtration Rate [...] 224 mg/dL High 74 - 99 mg/dL [facility] Comment on above: The [place] Diabete s Association (ADA) provides guidance for [...] Standards of Medical Care in Diabetes 2016, [place] Diabetes Association. Diabetes Care. 2016.39(Suppl 1). Interpretation and review of laboratory results Abnormal [facility] Potassium [Moles/Vol] 4 mmol/L 3.7 - 5.1 mmol/L [facility] Sodium [Moles/Vol] 136 mmol/L 136 - 144 mmol/L [facility] Urea nitrogen [Mass/Vol] 22 mg/dL 9 - 24 mg/d L [facility] Anion gap [Moles/Vol] 11 mmol/L Normal 8-15 [facility] Comment on above: Order Comment: Speci men Type: BLOOD SPECIMEN Ordering Facility: [facility] Address: [address] [place] [address] Performed By: #### 2 4321-2 #### [facility] CLIA [id number] [address] [place] [address] [place] Calcium [Mass/Vol] 8.6 mg/dL Normal 8.5-10.2 [facility] Comment on above: Order Comment: Speci men Type: BLOOD SPECIMEN Ordering Facility: [facility] Address: [address] [place] [address] Performed By: #### 2 4321-2 #### [facility] CLIA [id number] [address] [place] [address] [place] Chloride [Moles/Vol] 103 mmol/L Normal 98-107 [facility] Comment on above: Order Comment: Speci men Type: BLOOD SPECIMEN Ordering Facility: [facility] Address: [address] [place] [address] Performed By: #### 2 4321-2 #### [facility] CLIA [id number] [address] [place] [address] [place] CO2 [Moles/Vol] 22 mmol/L Normal 22-30 [facility] Comment on above: Order Comment: Speci men Type: BLOOD SPECIMEN Ordering Facility: [facility] Address: [address] [place] [address] Performed By: #### 2 4321-2 #### [facility] CLIA [id number] [address] [place] [address] [place] Creatinine [Mass/Vol] 1.08 mg/dL Normal 0.73-1.22 [facility] Comment on above: Order Comment: Speci men Type: BLOOD SPECIMEN Ordering Facility: [facility] Address: [address] [place] [address] Performed By: #### 2 4321-2 #### [facility] CLIA [id number] [address] [place] [address] [place] Creatinine and Glomerular filtration rate.predicted panel (S/P/Bld) 74 mL/min/1.73m??? Normal >=60 [facility] Comment on above: Order Comment: Yojana riggins Type: BLOOD SPECIMEN Ordering Facility: [facility] Address: [address] [place] [address] Result Comment: Apple mated Glomerular Filtration Rate [...] #### 2 4321-2 #### [facility] CLIA [id number] [address] [place] [address] [place] Glucose [Mass/Vol] 224 mg/dL High 74-99 [facility] Comment on above: Order Comment: Yojana riggins Type: BLOOD SPECIMEN Ordering Facility: [facility] Address: [address] [place] [address] Result Comment: The [place] Diabetes Association (ADA) provides guidance for cutoff [...] Standards of Medical Care in Diabetes 2016, [place] Diabetes Association. Diabetes Care. 2016.39(Suppl 1). Performed By: #### 2 4321-2 #### [facility] CLIA [id number] [address] [place] [id number] [place] Potassium [Moles/Vol] 4.0 mmol/L Normal 3.7-5.1 [facility] Comment on above: Order Comment: Yojana riggins Type: BLOOD SPECIMEN Ordering Facility: [facility] Address: [address] [place] [address] Performed By: #### 2 4321-2 #### [facility] CLIA [id number] [address] [place] Sodium [Moles/Vol] 136 mmol/L Normal 136-144 [facility] Comment on above: Order Comment: Speci men Type: BLOOD SPECIMEN Ordering Facility: [facility] Address: [address] [place] [address] Performed By: #### 2 4321-2 #### [facility] CLIA [id number] [address] [place] Urea nitrogen [Mass/Vol] 22 mg/dL Normal 9-24 [facility] Comment on above: Order Comment: Speci men Type: BLOOD SPECIMEN Ordering Facility: [facility] Address: [address] [place] [address] Performed By: #### 2 4321-2 #### [facility] CLIA [id number] [address] [place] CBC panel Auto (Bld)on 09-19 Erythrocyte distribution width (RBC) [Ratio] 18.4 % High 11.5 - 15.0 % [facility] Hematocrit (Bld) [Volume fraction] 27.3 % Low 39.0 - 51.0 % [facility] Hemoglobin (Bld) [Mass/Vol] 8.5 g/dL Low 13.0 - 17.0 g/dL [facility] Interpretation and review of laboratory results Abnormal [facility] MCH (RBC) [Entitic mass] 30.1 pg 26. 0 - 34.0 pg [facility] MCHC (RBC) [Mass/Vol] 31.1 g/dL 30.5 - 36.0 g/dL [facility] MCV (RBC) [Entitic vol] 96.8 fL 80.0 - 100.0 fL [facility] Nucleated RBC (Bld) [#/Vol] NINF [facility] Platelet mean volume (Bld) [Entitic vol] 8.6 fL Low 9.0 - 12.7 fL [facility] Platelets (Bld) [#/Vol] 222 10*3/uL [facility] RBC (Bld) [#/Vol] 2.82 10*6/uL Low 4.20 - 6.0 0 m/uL [facility] WBC (Bld) [#/Vol] 5.17 10*3/uL [facility] Erythrocyte distribution width (RBC) [Ratio] 18.4 % High 11.5-15.0 [facility] Comment on above: Order Comment: Speci men Type: BLOOD SPECIMEN Ordering Facility: [facility] Address: [address] [place] [address] Performed By: #### 5 8410-2 #### [facility] CLIA [id number] [address] [place] [address] [place] Hematocrit (Bld) [Volume fraction] 27.3 % Low 39.0-51.0 [facility] Comment on above: Order Comment: Speci men Type: BLOOD SPECIMEN Ordering Facility: [facility] Address: [address] [place] [address] Performed By: #### 5 8410-2 #### [facility] CLIA [id number] [address] [place] Hemoglobin (Bld) [Mass/Vol] 8.5 g/dL Low 13.0-17.0 [facility] Comment on above: Order Comment: Speci men Type: BLOOD SPECIMEN Ordering Facility: [facility] Address: [address] [place] [address] Performed By: #### 5 8410-2 #### [facility] CLIA [id number] [address] [place] MCH (RBC) [Entitic mass] 30.1 pg Normal 26.0-34.0 [facility] Comment on above: Order Comment: Speci men Type: BLOOD SPECIMEN Ordering Facility: [facility] Address: [address] [place] [address] Performed By: #### 5 8410-2 #### [facility] CLIA [id number] [address] [place] MCHC (RBC) [Mass/Vol] 31.1 g/dL Normal 30.5-36.0 [facility] Comment on above: Order Comment: Speci men Type: BLOOD SPECIMEN Ordering Facility: [facility] Address: [address] [place] [address] Performed By: #### 5 8410-2 #### [facility] CLIA [id number] [address] OF [facility] MCV (RBC) [Entitic vol] 96.8 fL Normal 80.0-100.0 [facility] Comment on above: Order Comment: Speci men Type: BLOOD SPECIMEN Ordering Facility: [facility] Address: [address] [place] [address] Performed By: #### 5 8410-2 #### [facility] CLIA [id number] [address] [place] [address] [place] Nucleated RBC (Bld) [#/Vol] 10*3/uL Normal <0.01 [facility] Comment on above: Order Comment: Speci men Type: BLOOD SPECIMEN Ordering Facility: [facility] Address: [address] [place] [address] Performed By: #### 5 8410-2 #### [facility] CLIA [id number] [address] [place] [address] [place] Platelet mean volume (Bld) [Entitic vol] 8.6 fL Low 9.0-12.7 [facility] Comment on above: Order Comment: Speci men Type: BLOOD SPECIMEN Ordering Facility: [facility] Address: [address] [place] [address] Performed By: #### 5 8410-2 #### [facility] CLIA [id number] [address] [place] [address] [facility] [place] Platelets (Bld) [#/Vol] 222 10*3/uL Normal 150-400 [facility] Comment on above: Order Comment: Speci men Type: BLOOD SPECIMEN Ordering Facility: [facility] Address: [address] [place] [address] Performed By: #### 5 8410-2 #### [facility] CLIA [id number] [address] [place] [address] [place] RBC (Bld) [#/Vol] 2.82 10*6/uL Low 4.20-6.00 [facility] Comment on above: Order Comment: Speci men Type: BLOOD SPECIMEN Ordering Facility: [facility] Address: [address] [place] [address] Performed By: #### 5 8410-2 #### [facility] CLIA [id number] [address] OF [facility] WBC (Bld) [#/Vol] 5.17 10*3/uL Normal 3.70-11.00 [facility] Comment on above: Order Comment: Speci men Type: BLOOD SPECIMEN Ordering Facility: [facility] Address: [address] [place] [address] Performed By: #### 5 8410-2 #### [facility] CLIA [id number] [address] [place] Basic metabolic 2000 panelon 09-18-2024 Anion gap [Moles/Vol] 9 mmol/L 8 - 15 mmol/L [facility] Calcium [Mass/Vol] 8.7 mg/dL 8.5 - 10. 2 mg/dL [facility] Chloride [Moles/Vol] 103 mmol/L 98 - 10 7 mmol/L [facility] CO2 [Moles/Vol] 23 mmol/L 22 - 30 mmol/L [facility] Creatinine [Mass/Vol] 1.35 mg/dL High 0.73 - 1.22 mg/dL [facility] GFR/1.73 sq M.predicted among non-blacks MDRD (S/P/Bld) [Vol rate/Area] 57 mL/min/{1.73_m2} Low - PINF [facility] Comment on above: Estimated Glomerular Filtration Rate [...] 186 mg/dL High 74 - 99 mg/dL [facility] Comment on above: The [place] Diabete s Association (ADA) provides guidance for [...] Standards of Medical Care in Diabetes 2016, [place] Diabetes Association. Diabetes Care. 2016.39(Suppl 1). Interpretation and review of laboratory results Abnormal [facility] Potassium [Moles/Vol] 4.5 mmol/L 3.7 - 5.1 mmol/L [facility] Sodium [Moles/Vol] 135 mmol/L Low 136 - 144 mmol/L [facility] Urea nitrogen [Mass/Vol] 21 mg/dL 9 - 24 mg/d L [facility] Anion gap [Moles/Vol] 9 mmol/L Normal 8-15 [facility] Comment on above: Order Comment: Speci men Type: BLOOD SPECIMEN Ordering Facility: [facility] Address: [address] [place] [address] Performed By: #### 2 4321-2 #### [facility] CLIA [id number] [address] [place] [address] [place] Calcium [Mass/Vol] 8.7 mg/dL Normal 8.5-10.2 [facility] Comment on above: Order Comment: Speci men Type: BLOOD SPECIMEN Ordering Facility: [facility] Address: [address] [place] [address] Performed By: #### 2 4321-2 #### [facility] CLIA [id number] [address] [place] [address] [place] Chloride [Moles/Vol] 103 mmol/L Normal 98-107 [facility] Comment on above: Order Comment: Speci men Type: BLOOD SPECIMEN Ordering Facility: [facility] Address: [address] [place] [address] Performed By: #### 2 4321-2 #### [facility] CLIA [id number] [address] [place] [address] [place] CO2 [Moles/Vol] 23 mmol/L Normal 22-30 [facility] Comment on above: Order Comment: Speci men Type: BLOOD SPECIMEN Ordering Facility: [facility] Address: [address] [place] [address] Performed By: #### 2 4321-2 #### [facility] CLIA [id number] [address] [place] [address] [place] Creatinine [Mass/Vol] 1.35 mg/dL High 0.73-1.22 [facility] Comment on above: Order Comment: Speci men Type: BLOOD SPECIMEN Ordering Facility: [facility] Address: [address] [place] [address] Performed By: #### 2 4321-2 #### [facility] CLIA [id number] [address] [place] Creatinine and Glomerular filtration rate.predicted panel (S/P/Bld) 57 mL/min/1.73m??? Low >=60 [facility] Comment on above: Order Comment: Speci men Type: BLOOD SPECIMEN Ordering Facility: [facility] Address: [address] [place] [address] Result Comment: Apple mated Glomerular Filtration Rate [...] #### 2 4321-2 #### [facility] CLIA [id number] [address] [place] [address] [place] Glucose [Mass/Vol] 186 mg/dL High 74-99 [facility] Comment on above: Order Comment: Speci men Type: BLOOD SPECIMEN Ordering Facility: [facility] Address: [address] [place] [address] Result Comment: The [place] Diabetes Association (ADA) provides guidance for cutoff [...] Standards of Medical Care in Diabetes 2016, [place] Diabetes Association. Diabetes Care. 2016.39(Suppl 1). Performed By: #### 2 4321-2 #### [facility] CLIA [id number] [address] [place] [address] [place] Potassium [Moles/Vol] 4.5 mmol/L Normal 3.7-5.1 [facility] Comment on above: Order Comment: Speci men Type: BLOOD SPECIMEN Ordering Facility: [facility] Address: [address] [place] [address] Performed By: #### 2 4321-2 #### [facility] CLIA [id number] [address] [place] [address] [place] Sodium [Moles/Vol] 135 mmol/L Low 136-144 [facility] Comment on above: Order Comment: Simrani gilson Type: BLOOD SPECIMEN Ordering Facility: [facility] Address: [address] [place] [address] Performed By: #### 2 4321-2 #### [facility] CLIA [id number] [address] [place] [address] [place] Urea nitrogen [Mass/Vol] 21 mg/dL Normal 9-24 [facility] Comment on above: Order Comment: Speci men Type: BLOOD SPECIMEN Ordering Facility: [facility] Address: [address] [place] [address] Performed By: #### 2 4321-2 #### [facility] CLIA [id number] [address] [place] [address] [place] Bacteria Ur Culton [...] , Intermediate >32 , Resistant >[address] [facility] Comment on above: Performed By: #### 6 30-4 #### [facility] CLIA [id number] [address] [place] [address] [place] Urinalysis complete panel (U )on 09-17-2024 Bacteria LM.HPF (Urine sed) [#/Area] Moderate Abnormal None Seen [facility] Comment on above: Order Comment: Speci men Type: URINE SPECIMEN Ordering Facility: [facility] Address: [address] [place] [address] Performed By: #### 2 4356-8 #### [facility] CLIA [id number] [address] [place] [address] [place] [address] [facility] [place] Bilirubin Ql (U) Negative Normal Negative [facility] Comment on above: Order Comment: Speci men Type: URINE SPECIMEN Ordering Facility: [facility] Address: [address] [place] [address] Performed By: #### 2 4356-8 #### [facility] CLIA [id number] [address] [place], [place] [id number] [place] [address] [place] Clarity (Unsp spec) Turbid Abnormal Clear [facility] Comment on above: Order Comment: Speci men Type: URINE SPECIMEN Ordering Facility: [facility] Address: [address] [place] [address] Performed By: #### 2 4356-8 #### [facility] CLIA [id number] [address] [place] Color (U) Yellow Normal Yellow [facility] Comment on above: Order Comment: Speci men Type: URINE SPECIMEN Ordering Facility: [facility] Address: [address] [place] [address] Performed By: #### 2 4356-8 #### [facility] CLIA [id number] [address] Glucose Test strip (U) [Mass/Vol] Negative Normal Negative [facility] Comment on above: Order Comment: Speci men Type: URINE SPECIMEN Ordering Facility: [facility] Address: [address] [place] [address] Performed By: #### 2 4356-8 #### [facility] CLIA [id number] [address] [place] Hemoglobin Ql (U) 2+ Abnormal Negative [facility] Comment on above: Order Comment: Speci men Type: URINE SPECIMEN Ordering Facility: [facility] Address: [address] [place] [address] Performed By: #### 2 4356-8 #### [facility] CLIA [id number] [address] [place] Ketones Ql (U) Negative Normal Negative [facility] Comment on above: Order Comment: Speci men Type: URINE SPECIMEN Ordering Facility: [facility] Address: [address] [place] [address] Performed By: #### 2 4356-8 #### [facility] CLIA [id number] [address] Leukocyte esterase Test strip Ql (U) 3+ Abnormal Negative [facility] Comment on above: Order Comment: Speci men Type: URINE SPECIMEN Ordering Facility: [facility] Address: [address] [place] [address] Performed By: #### 2 4356-8 #### [facility] CLIA [id number] [address] [place] Nitrite Ql (U) Negative Normal Negative [facility] Comment on above: Order Comment: Speci men Type: URINE SPECIMEN Ordering Facility: [facility] Address: [address] [place] [address] Performed By: #### 2 4356-8 #### [facility] CLIA [id number] [address] [place] pH (U) 6.0 [pH] Normal 5.0-8.0 [facility] Comment on above: Order Comment: Speci men Type: URINE SPECIMEN Ordering Facility: [facility] Address: [address] [place] [address] Performed By: #### 2 4356-8 #### [facility] CLIA [id number] [address] [place] Protein (U) [Mass/Vol] 1+ Abnormal Negative [facility] Comment on above: Order Comment: Speci men Type: URINE SPECIMEN Ordering Facility: [facility] Address: [address] [place] [address] Performed By: #### 2 4356-8 #### [facility] CLIA [id number] [address] [place] RBC LM.HPF (Urine sed) [#/Area] 3-5 /HPF Abnormal 0-3 /HPF [facility] Comment on above: Order Comment: Speci men Type: URINE SPECIMEN Ordering Facility: [facility] Address: [address] [place] [address] Performed By: #### 2 4356-8 #### [facility] CLIA [id number] [address] Specific gravity (U) [Rel density] 1.020 Normal 1.005-1.030 [facility] Comment on above: Order Comment: Speci men Type: URINE SPECIMEN Ordering Facility: [facility] Address: [address] [place] [address] Performed By: #### 2 4356-8 #### [facility] CLIA [id number] [address] [place] [address] [place] Urobilinogen Ql (U) 0.2 EU/dL Normal 0.2-1.0 EU/dL [facility] Comment on above: Order Comment: Speci men Type: URINE SPECIMEN Ordering Facility: [facility] Address: [address] [place] [address] Performed By: #### 2 4356-8 #### [facility] CLIA [id number] [address] [place] WBC LM.HPF (Urine sed) [#/Area] /[HPF] Abnormal 0-5 /HPF [facility] Comment on above: Order Comment: Speci men Type: URINE SPECIMEN Ordering Facility: [facility] Address: [address] [place] [address] Performed By: #### 2 4356-8 #### [facility] CLIA [id number] [address] [place] [address] [place] Basic metabolic 2000 panelon 09-16-2024 Anion gap [Moles/Vol] 12 mmol/L 8 - 15 mmol/L [facility] Calcium [Mass/Vol] 8.7 mg/dL 8.5 - 10. 2 mg/dL [facility] Chloride [Moles/Vol] 102 mmol/L 98 - 10 7 mmol/L [facility] CO2 [Moles/Vol] 23 mmol/L 22 - 30 mmol/L [facility] Creatinine [Mass/Vol] 1.25 mg/dL High 0.73 - 1.22 mg/dL [facility] GFR/1.73 sq M.predicted among non-blacks MDRD (S/P/Bld) [Vol rate/Area] 62 mL/min/{1.73_m2} - PINF [facility] Comment on above: Estimated Glomerular Filtration Rate [...] 122 mg/dL High 74 - 99 mg/dL [facility] Comment on above: The [place] Diabete s Association (ADA) provides guidance for [...] Standards of Medical Care in Diabetes 2016, [place] Diabetes Association. Diabetes Care. 2016.39(Suppl 1). Potassium [Moles/Vol] 4.2 mmol/L 3.7 - 5.1 mmol/L [facility] Sodium [Moles/Vol] 137 mmol/L 136 - 144 mmol/L [facility] Urea nitrogen [Mass/Vol] 23 mg/dL 9 - 24 mg/d L [facility] Anion gap [Moles/Vol] 12 mmol/L Normal 8-15 [facility] Comment on above: Order Comment: Yojana riggins Type: BLOOD SPECIMEN Ordering Facility: [facility] Address: [address] [place] [address] Performed By: #### 2 4321-2 #### [facility] CLIA [id number] [address] [place] [address] [place] Calcium [Mass/Vol] 8.7 mg/dL Normal 8.5-10.2 [facility] Comment on above: Order Comment: Yojana riggins Type: BLOOD SPECIMEN Ordering Facility: [facility] Address: [address] [place] [address] Performed By: #### 2 4321-2 #### [facility] CLIA [id number] [address] [place] [address] [place] Chloride [Moles/Vol] 102 mmol/L Normal 98-107 [facility] Comment on above: Order Comment: Speci men Type: BLOOD SPECIMEN Ordering Facility: [facility] Address: [address] [place] [address] Performed By: #### 2 4321-2 #### [facility] CLIA [id number] 1000 [place] [address] [place] CO2 [Moles/Vol] 23 mmol/L Normal 22-30 [facility] Comment on above: Order Comment: Speci men Type: BLOOD SPECIMEN Ordering Facility: [facility] Address: [address] [place] [address] Performed By: #### 2 4321-2 #### [facility] CLIA [id number] [address] [place] [address] [place] Creatinine [Mass/Vol] 1.25 mg/dL High 0.73-1.22 [facility] Comment on above: Order Comment: Speci men Type: BLOOD SPECIMEN Ordering Facility: [facility] Address: [address] [place] [address] Performed By: #### 2 4321-2 #### [facility] CLIA [id number] [address] Creatinine and Glomerular filtration rate.predicted panel (S/P/Bld) 62 mL/min/1.73m??? Normal >=60 [facility] Comment on above: Order Comment: Speci men Type: BLOOD SPECIMEN Ordering Facility: [facility] Address: [address] [place] [address] Result Comment: Apple mated Glomerular Filtration Rate [...] #### 2 4321-2 #### [facility] CLIA [id number] [address] [place] [address] [place] Glucose [Mass/Vol] 122 mg/dL High 74-99 [facility] Comment on above: Order Comment: Yojana riggins Type: BLOOD SPECIMEN Ordering Facility: [facility] Address: [address] [place] [address] Result Comment: The [place] [employer] Association (ADA) provides guidance for cutoff [...] Standards of Medical Care in Diabetes 2016, [place] [employer]. Diabetes Care. 2016.39(Suppl 1). Performed By: #### 2 4321-2 #### [facility] CLIA [id number] [address] [place] [address] [place] Potassium [Moles/Vol] 4.2 mmol/L Normal 3.7-5.1 [facility] Comment on above: Order Comment: Yojana riggins Type: BLOOD SPECIMEN Ordering Facility: [facility] Address: [address] [place] [address] Performed By: #### 2 4321-2 #### [facility] CLIA [id number] [address] [place] [address] [place] Sodium [Moles/Vol] 137 mmol/L Normal 136-144 [facility] Comment on above: Order Comment: Yojana riggins Type: BLOOD SPECIMEN Ordering Facility: [facility] Address: [address] [place] [address] Performed By: #### 2 4321-2 #### [facility] CLIA [id number] [address] [place] [address] [place] Urea nitrogen [Mass/Vol] 23 mg/dL Normal 9-24 [facility] Comment on above: Order Comment: Yojana riggins Type: BLOOD SPECIMEN Ordering Facility: [facility] Address: [address] [place] [address] Performed By: #### 2 4321-2 #### [facility] CLIA [id number] [address] [place] CBC panel Auto (Bld)on 09-16 Erythrocyte distribution width (RBC) [Ratio] 18.9 % High 11.5 - 15.0 % [facility] Hematocrit (Bld) [Volume fraction] 27 % Low 39.0 - 51.0 % [facility] Hemoglobin (Bld) [Mass/Vol] 8.5 g/dL Low 13.0 - 17.0 g/dL [facility] Interpretation and review of laboratory results Abnormal [facility] MCH (RBC) [Entitic mass] 30.8 pg 26. 0 - 34.0 pg [facility] MCHC (RBC) [Mass/Vol] 31.5 g/dL 30.5 - 36.0 g/dL [facility] MCV (RBC) [Entitic vol] 97.8 fL 80.0 - 100.0 fL [facility] Nucleated RBC (Bld) [#/Vol] NINF [facility] Platelet mean volume (Bld) [Entitic vol] 8.7 fL Low 9.0 - 12.7 fL [facility] Platelets (Bld) [#/Vol] 245 10*3/uL [facility] RBC (Bld) [#/Vol] 2.76 10*6/uL Low 4.20 - 6.0 0 m/uL [facility] WBC (Bld) [#/Vol] 6.73 10*3/uL [facility] Erythrocyte distribution width (RBC) [Ratio] 18.9 % High 11.5-15.0 [facility] Comment on above: Order Comment: Yojana riggins Type: BLOOD SPECIMEN Ordering Facility: [facility] Address: [address] [place] [address] Performed By: #### 5 8410-2 #### [facility] CLIA [id number] [address] [place] Hematocrit (Bld) [Volume fraction] 27.0 % Low 39.0-51.0 [facility] Comment on above: Order Comment: Speci men Type: BLOOD SPECIMEN Ordering Facility: [facility] Address: [address] [place] [address] Performed By: #### 5 8410-2 #### [facility] CLIA [id number] [address] [place] [address] [place] Hemoglobin (Bld) [Mass/Vol] 8.5 g/dL Low 13.0-17.0 [facility] Comment on above: Order Comment: Speci men Type: BLOOD SPECIMEN Ordering Facility: [facility] Address: [address] [place] [address] Performed By: #### 5 8410-2 #### [facility] CLIA [id number] [address] [place] [address] [place] MCH (RBC) [Entitic mass] 30.8 pg Normal 26.0-34.0 [facility] Comment on above: Order Comment: Speci men Type: BLOOD SPECIMEN Ordering Facility: [facility] Address: [address] [place] [address] Performed By: #### 5 8410-2 #### [facility] CLIA [id number] [address] [place] MCHC (RBC) [Mass/Vol] 31.5 g/dL Normal 30.5-36.0 [facility] Comment on above: Order Comment: Speci men Type: BLOOD SPECIMEN Ordering Facility: [facility] Address: [address] [place] [address] Performed By: #### 5 8410-2 #### [facility] CLIA [id number] [address] OF [facility] MCV (RBC) [Entitic vol] 97.8 fL Normal 80.0-100.0 [facility] Comment on above: Order Comment: Speci men Type: BLOOD SPECIMEN Ordering Facility: [facility] Address: [address] [place] [address] Performed By: #### 5 8410-2 #### [facility] CLIA [id number] [address] [place] [address] [place] Nucleated RBC (Bld) [#/Vol] 10*3/uL Normal <0.01 [facility] Comment on above: Order Comment: Speci men Type: BLOOD SPECIMEN Ordering Facility: [facility] Address: [address] [place] [address] Performed By: #### 5 8410-2 #### [facility] CLIA [id number] [address] [place] [address] [place] Platelet mean volume (Bld) [Entitic vol] 8.7 fL Low 9.0-12.7 [facility] Comment on above: Order Comment: Speci men Type: BLOOD SPECIMEN Ordering Facility: [facility] Address: [address] [place] [address] Performed By: #### 5 8410-2 #### [facility] CLIA [id number] [address] [place] [address] [place] Platelets (Bld) [#/Vol] 245 10*3/uL Normal 150-400 [facility] Comment on above: Order Comment: Speci men Type: BLOOD SPECIMEN Ordering Facility: [facility] Address: [address] [place] [address] Performed By: #### 5 8410-2 #### [facility] CLIA [id number] [address] [place] [address] [place] RBC (Bld) [#/Vol] 2.76 10*6/uL Low 4.20-6.00 [facility] Comment on above: Order Comment: Speci men Type: BLOOD SPECIMEN Ordering Facility: [facility] Address: [address] [place] [address] Performed By: #### 5 8410-2 #### [facility] CLIA [id number] [address] [place] [address] [place] WBC (Bld) [#/Vol] 6.73 10*3/uL Normal 3.70-11.00 [facility] Comment on above: Order Comment: Speci gilson Type: BLOOD SPECIMEN Ordering Facility: [facility] Address: [address] [place] [address] Performed By: #### 5 8410-2 #### [facility] CLIA [id number] [address] [place] CNOVon 09-16-2024 CNOV Normal [facility] CNPNon 09-16-2024 CNPN Normal [facility] NT PRO BNPon 09-16-2024 Natriuretic peptide.B prohormone N-Terminal [Mass/Vol] 5720 pg/mL High NINF - 125 pg/mL [facility] NT-proBNP SerPl-mCncon 09-16 Natriuretic peptide.B prohormone N-Terminal [Mass/Vol] 5720 pg/mL High <125 [facility] Comment on above: Order Comment: Yojana riggins Type: BLOOD SPECIMEN Ordering Facility: [facility] Address: [address] [place] [address] Performed By: #### 2 4321-2 #### [facility] CLIA [id number] [address] [place] No Panel Informationon 09-16 Interpretation and review of laboratory results Abnormal [facility] Basic metabolic 2000 panelon 09-12-2024 Anion gap [Moles/Vol] 11 mmol/L 8 - 15 mmol/L [facility] Calcium [Mass/Vol] 8.5 mg/dL 8.5 - 10. 2 mg/dL [facility] Chloride [Moles/Vol] 100 mmol/L 98 - 10 7 mmol/L [facility] CO2 [Moles/Vol] 24 mmol/L 22 - 30 mmol/L [facility] Creatinine [Mass/Vol] 1.17 mg/dL 0.73 - 1.22 mg/dL [facility] GFR/1.73 sq M.predicted among non-blacks MDRD (S/P/Bld) [Vol rate/Area] 67 mL/min/{1.73_m2} - PINF [facility] Comment on above: Estimated Glomerular Filtration Rate [...] 168 mg/dL High 74 - 99 mg/dL [facility] Comment on above: The [place] Diabete s Association (ADA) provides guidance for [...] Standards of Medical Care in Diabetes 2016, [place] [employer]. Diabetes Care. 2016.39(Suppl 1). Interpretation and review of laboratory results Abnormal [facility] Potassium [Moles/Vol] 4.7 mmol/L 3.7 - 5.1 mmol/L [facility] Sodium [Moles/Vol] 135 mmol/L Low 136 - 144 mmol/L [facility] Urea nitrogen [Mass/Vol] 17 mg/dL 9 - 24 mg/d L [facility] Anion gap [Moles/Vol] 11 mmol/L Normal 8-15 [facility] Comment on above: Order Comment: Yojana riggins Type: BLOOD SPECIMEN Ordering Facility: [facility] Address: [address] [place] [address] Performed By: #### 2 4321-2 #### [facility] CLIA [id number] [address] [place] [address] [place] Calcium [Mass/Vol] 8.5 mg/dL Normal 8.5-10.2 [facility] Comment on above: Order Comment: Yojana riggins Type: BLOOD SPECIMEN Ordering Facility: [facility] Address: [address] [place] [address] Performed By: #### 2 4321-2 #### [facility] CLIA [id number] [address] [place] Chloride [Moles/Vol] 100 mmol/L Normal 98-107 [facility] Comment on above: Order Comment: Speci men Type: BLOOD SPECIMEN Ordering Facility: [facility] Address: [address] [place] [address] Performed By: #### 2 4321-2 #### [facility] CLIA [id number] [address] [place] CO2 [Moles/Vol] 24 mmol/L Normal 22-30 [facility] Comment on above: Order Comment: Speci men Type: BLOOD SPECIMEN Ordering Facility: [facility] Address: [address] [place] [address] Performed By: #### 2 4321-2 #### [facility] CLIA [id number] [address] Creatinine [Mass/Vol] 1.17 mg/dL Normal 0.73-1.22 [facility] Comment on above: Order Comment: Speci men Type: BLOOD SPECIMEN Ordering Facility: [facility] Address: [address] [place] [address] Performed By: #### 2 4321-2 #### [facility] CLIA [id number] [address] Creatinine and Glomerular filtration rate.predicted panel (S/P/Bld) 67 mL/min/1.73m??? Normal >=60 [facility] Comment on above: Order Comment: Speci men Type: BLOOD SPECIMEN Ordering Facility: [facility] Address: [address] [place] [address] Result Comment: Apple mated Glomerular Filtration Rate [...] #### 2 4321-2 #### [facility] CLIA [id number] [address] [place] [address] [place] Glucose [Mass/Vol] 168 mg/dL High 74-99 [facility] Comment on above: Order Comment: Yojana men Type: BLOOD SPECIMEN Ordering Facility: [facility] Address: [address] [place] [address] Result Comment: The [place] Diabetes Association (ADA) provides guidance for cutoff [...] Standards of Medical Care in Diabetes 2016, [place] [employer]. Diabetes Care. 2016.39(Suppl 1). Performed By: #### 2 4321-2 #### [facility] CLIA [id number] [address] [place] [address] [place] Potassium [Moles/Vol] 4.7 mmol/L Normal 3.7-5.1 [facility] Comment on above: Order Comment: Yojana riggins Type: BLOOD SPECIMEN Ordering Facility: [facility] Address: [address] [place] [address] Performed By: #### 2 4321-2 #### [facility] CLIA [id number] [address] [place] [address] [place] Sodium [Moles/Vol] 135 mmol/L Low 136-144 [facility] Comment on above: Order Comment: Simrani men Type: BLOOD SPECIMEN Ordering Facility: [facility] Address: [address] [place] [address] Performed By: #### 2 4321-2 #### [facility] CLIA [id number] [address] [place] [address] [place] Urea nitrogen [Mass/Vol] 17 mg/dL Normal 9-24 [facility] Comment on above: Order Comment: Speci men Type: BLOOD SPECIMEN Ordering Facility: [facility] Address: [address] [place] [address] Performed By: #### 2 4321-2 #### [facility] CLIA [id number] [address] OF [facility] CBC panel Auto (Bld)on 09-12 Erythrocyte distribution width (RBC) [Ratio] 19 % High 11.5 - 15.0 % [facility] Hematocrit (Bld) [Volume fraction] 26.1 % Low 39.0 - 51.0 % [facility] Hemoglobin (Bld) [Mass/Vol] 8.1 g/dL Low 13.0 - 17.0 g/dL [facility] Interpretation and review of laboratory results Abnormal [facility] MCH (RBC) [Entitic mass] 30.6 pg 26. 0 - 34.0 pg [facility] MCHC (RBC) [Mass/Vol] 31 g/dL 30.5 - 36.0 g/dL [facility] MCV (RBC) [Entitic vol] 98.5 fL 80.0 - 100.0 fL [facility] Nucleated RBC (Bld) [#/Vol] NINF [facility] Platelet mean volume (Bld) [Entitic vol] 8.6 fL Low 9.0 - 12.7 fL [facility] Platelets (Bld) [#/Vol] 231 10*3/uL [facility] RBC (Bld) [#/Vol] 2.65 10*6/uL Low 4.20 - 6.0 0 m/uL [facility] WBC (Bld) [#/Vol] 6.84 10*3/uL [facility] Erythrocyte distribution width (RBC) [Ratio] 19.0 % High 11.5-15.0 [facility] Comment on above: Order Comment: Yojana riggins Type: BLOOD SPECIMEN Ordering Facility: [facility] Address: [address] [place] [address] Performed By: #### 5 8410-2 #### [facility] CLIA [id number] [address] [place] Hematocrit (Bld) [Volume fraction] 26.1 % Low 39.0-51.0 [facility] Comment on above: Order Comment: Speci men Type: BLOOD SPECIMEN Ordering Facility: [facility] Address: [address] [place] [address] Performed By: #### 5 8410-2 #### [facility] CLIA [id number] [address] Hemoglobin (Bld) [Mass/Vol] 8.1 g/dL Low 13.0-17.0 [facility] Comment on above: Order Comment: Speci men Type: BLOOD SPECIMEN Ordering Facility: [facility] Address: [address] [place] [address] Performed By: #### 5 8410-2 #### [facility] CLIA [id number] [address] [place] [facility] MCH (RBC) [Entitic mass] 30.6 pg Normal 26.0-34.0 [facility] Comment on above: Order Comment: Speci men Type: BLOOD SPECIMEN Ordering Facility: [facility] Address: [address] [place] [address] Performed By: #### 5 8410-2 #### [facility] CLIA [id number] [address] MCHC (RBC) [Mass/Vol] 31.0 g/dL Normal 30.5-36.0 [facility] Comment on above: Order Comment: Speci men Type: BLOOD SPECIMEN Ordering Facility: [facility] Address: [address] [place] [address] Performed By: #### 5 8410-2 #### [facility] CLIA [id number] [address] [place] [facility] MCV (RBC) [Entitic vol] 98.5 fL Normal 80.0-100.0 [facility] Comment on above: Order Comment: Speci men Type: BLOOD SPECIMEN Ordering Facility: [facility] Address: [address] [place] [address] Performed By: #### 5 8410-2 #### [facility] CLIA [id number] [address] [place] [address] [place] Nucleated RBC (Bld) [#/Vol] 10*3/uL Normal <0.01 [facility] Comment on above: Order Comment: Speci men Type: BLOOD SPECIMEN Ordering Facility: [facility] Address: [address] [place] [address] Performed By: #### 5 8410-2 #### [facility] CLIA [id number] [address] [place] [address] [place] Platelet mean volume (Bld) [Entitic vol] 8.6 fL Low 9.0-12.7 [facility] Comment on above: Order Comment: Speci men Type: BLOOD SPECIMEN Ordering Facility: [facility] Address: [address] [place] [address] Performed By: #### 5 8410-2 #### [facility] CLIA [id number] [address] [place] [address] [place] Platelets (Bld) [#/Vol] 231 10*3/uL Normal 150-400 [facility] Comment on above: Order Comment: Speci men Type: BLOOD SPECIMEN Ordering Facility: [facility] Address: [address] [place] [address] Performed By: #### 5 8410-2 #### [facility] CLIA [id number] [address] [place] [address] [place] RBC (Bld) [#/Vol] 2.65 10*6/uL Low 4.20-6.00 [facility] Comment on above: Order Comment: Speci men Type: BLOOD SPECIMEN Ordering Facility: [facility] Address: [address] [place] [address] Performed By: #### 5 8410-2 #### [facility] CLIA [id number] [address] [place] [address] [place] WBC (Bld) [#/Vol] 6.84 10*3/uL Normal 3.70-11.00 [facility] Comment on above: Order Comment: Speci men Type: BLOOD SPECIMEN Ordering Facility: [facility] Address: [address] [place] [address] Performed By: #### 5 8410-2 #### [facility] CLIA [id number] [address] [place] [address] [place] Basic metabolic 2000 panelon 09-11-2024 Anion gap [Moles/Vol] 10 mmol/L 8 - 15 mmol/L [facility] Calcium [Mass/Vol] 8.2 mg/dL Low 8.5 - 10. 2 mg/dL [facility] Chloride [Moles/Vol] 99 mmol/L 98 - 10 7 mmol/L [facility] CO2 [Moles/Vol] 25 mmol/L 22 - 30 mmol/L [facility] Creatinine [Mass/Vol] 1.07 mg/dL 0.73 - 1.22 mg/dL [facility] GFR/1.73 sq M.predicted among non-blacks MDRD (S/P/Bld) [Vol rate/Area] 75 mL/min/{1.73_m2} - PINF [facility] Comment on above: Estimated Glomerular Filtration Rate [...] 214 mg/dL High 74 - 99 mg/dL [facility] Comment on above: The [place] Diabete s Association (ADA) provides guidance for [...] Standards of Medical Care in Diabetes 2016, [place] [employer]. Diabetes Care. 2016.39(Suppl 1). Interpretation and review of laboratory results Abnormal [facility] Potassium [Moles/Vol] 4.2 mmol/L 3.7 - 5.1 mmol/L [facility] Sodium [Moles/Vol] 134 mmol/L Low 136 - 144 mmol/L [facility] Urea nitrogen [Mass/Vol] 18 mg/dL 9 - 24 mg/d L [facility] Anion gap [Moles/Vol] 10 mmol/L Normal 8-15 [facility] Comment on above: Order Comment: Speci men Type: BLOOD SPECIMEN Ordering Facility: [facility] Address: [address] [place] [address] Performed By: #### 2 4321-2 #### [facility] CLIA [id number] [address] [place] [address] [place] Calcium [Mass/Vol] 8.2 mg/dL Low 8.5-10.2 [facility] Comment on above: Order Comment: Speci men Type: BLOOD SPECIMEN Ordering Facility: [facility] Address: [address] [place] [address] Performed By: #### 2 4321-2 #### [facility] CLIA [id number] 1000 [place] [address] [place] Chloride [Moles/Vol] 99 mmol/L Normal 98-107 [facility] Comment on above: Order Comment: Speci men Type: BLOOD SPECIMEN Ordering Facility: [facility] Address: [address] [place] [address] Performed By: #### 2 4321-2 #### [facility] CLIA [id number] [address] [place] [address] [place] CO2 [Moles/Vol] 25 mmol/L Normal 22-30 [facility] Comment on above: Order Comment: Speci men Type: BLOOD SPECIMEN Ordering Facility: [facility] Address: [address] [place] [address] Performed By: #### 2 4321-2 #### [facility] CLIA [id number] [address] [place] [address] [place] Creatinine [Mass/Vol] 1.07 mg/dL Normal 0.73-1.22 [facility] Comment on above: Order Comment: Speci men Type: BLOOD SPECIMEN Ordering Facility: [facility] Address: [address] [place] [address] Performed By: #### 2 4321-2 #### [facility] CLIA [id number] [address] Creatinine and Glomerular filtration rate.predicted panel (S/P/Bld) 75 mL/min/1.73m??? Normal >=60 [facility] Comment on above: Order Comment: Yojana riggins Type: BLOOD SPECIMEN Ordering Facility: [facility] Address: [address] [place] [address] Result Comment: Apple mated Glomerular Filtration Rate [...] #### 2 4321-2 #### [facility] CLIA [id number] [address] STATES [facility] Glucose [Mass/Vol] 214 mg/dL High 74-99 [facility] Comment on above: Order Comment: Yojana riggins Type: BLOOD SPECIMEN Ordering Facility: [facility] Address: [address] [place] [address] Result Comment: The [place] Diabetes Association (ADA) provides guidance for cutoff [...] Standards of Medical Care in Diabetes 2016, [place] [employer]. Diabetes Care. 2016.39(Suppl 1). Performed By: #### 2 4321-2 #### [facility] CLIA [id number] [address] [place] Potassium [Moles/Vol] 4.2 mmol/L Normal 3.7-5.1 [facility] Comment on above: Order Comment: Speci gilson Type: BLOOD SPECIMEN Ordering Facility: [facility] Address: [address] [place] [address] Performed By: #### 2 4321-2 #### [facility] CLIA [id number] [address] Sodium [Moles/Vol] 134 mmol/L Low 136-144 [facility] Comment on above: Order Comment: Simrani gilson Type: BLOOD SPECIMEN Ordering Facility: [facility] Address: [address] [place] [address] Performed By: #### 2 4321-2 #### [facility] CLIA [id number] [address] Urea nitrogen [Mass/Vol] 18 mg/dL Normal 9-24 [facility] Comment on above: Order Comment: Simrani men Type: BLOOD SPECIMEN Ordering Facility: [facility] Address: [address] [place] [address] Performed By: #### 2 4321-2 #### [facility] CLIA [id number] [address] [place] CBC panel Auto (Bld)on 09-11 Erythrocyte distribution width (RBC) [Ratio] 18.8 % High 11.5 - 15.0 % [facility] Hematocrit (Bld) [Volume fraction] 24.7 % Low 39.0 - 51.0 % [facility] Hemoglobin (Bld) [Mass/Vol] 7.6 g/dL Low 13.0 - 17.0 g/dL [facility] Interpretation and review of laboratory results Abnormal [facility] MCH (RBC) [Entitic mass] 29.9 pg 26. 0 - 34.0 pg [facility] MCHC (RBC) [Mass/Vol] 30.8 g/dL 30.5 - 36.0 g/dL [facility] MCV (RBC) [Entitic vol] 97.2 fL 80.0 - 100.0 fL [facility] Nucleated RBC (Bld) [#/Vol] NINF [facility] Platelet mean volume (Bld) [Entitic vol] 8.4 fL Low 9.0 - 12.7 fL [facility] Platelets (Bld) [#/Vol] 220 10*3/uL [facility] RBC (Bld) [#/Vol] 2.54 10*6/uL Low 4.20 - 6.0 0 m/uL [facility] WBC (Bld) [#/Vol] 6.47 10*3/uL [facility] Erythrocyte distribution width (RBC) [Ratio] 18.8 % High 11.5-15.0 [facility] Comment on above: Order Comment: Speci men Type: BLOOD SPECIMEN Ordering Facility: [facility] Address: [address] [place] [address] Performed By: #### 5 8410-2 #### [facility] CLIA [id number] [address] STATES [facility] Hematocrit (Bld) [Volume fraction] 24.7 % Low 39.0-51.0 [facility] Comment on above: Order Comment: Speci men Type: BLOOD SPECIMEN Ordering Facility: [facility] Address: [address] [place] [address] Performed By: #### 5 8410-2 #### [facility] CLIA [id number] [address] [place] Hemoglobin (Bld) [Mass/Vol] 7.6 g/dL Low 13.0-17.0 [facility] Comment on above: Order Comment: Speci men Type: BLOOD SPECIMEN Ordering Facility: [facility] Address: [address] [place] [address] Performed By: #### 5 8410-2 #### [facility] CLIA [id number] [address] [place] MCH (RBC) [Entitic mass] 29.9 pg Normal 26.0-34.0 [facility] Comment on above: Order Comment: Speci men Type: BLOOD SPECIMEN Ordering Facility: [facility] Address: [address] [place] [address] Performed By: #### 5 8410-2 #### [facility] CLIA [id number] [address] [place] [address] [place] MCHC (RBC) [Mass/Vol] 30.8 g/dL Normal 30.5-36.0 [facility] Comment on above: Order Comment: Speci men Type: BLOOD SPECIMEN Ordering Facility: [facility] Address: [address] [place] [address] Performed By: #### 5 8410-2 #### [facility] CLIA [id number] [address] [place] [address] [place] MCV (RBC) [Entitic vol] 97.2 fL Normal 80.0-100.0 [facility] Comment on above: Order Comment: Speci men Type: BLOOD SPECIMEN Ordering Facility: [facility] Address: [address] [place] [address] Performed By: #### 5 8410-2 #### [facility] CLIA [id number] [address] [place] [address] [place] Nucleated RBC (Bld) [#/Vol] 10*3/uL Normal <0.01 [facility] Comment on above: Order Comment: Speci men Type: BLOOD SPECIMEN Ordering Facility: [facility] Address: [address] [place] [address] Performed By: #### 5 8410-2 #### [facility] CLIA [id number] [address] [place] [address] [place] Platelet mean volume (Bld) [Entitic vol] 8.4 fL Low 9.0-12.7 [facility] Comment on above: Order Comment: Speci men Type: BLOOD SPECIMEN Ordering Facility: [facility] Address: [address] [place] [address] Performed By: #### 5 8410-2 #### [facility] CLIA [id number] [address] [place] Platelets (Bld) [#/Vol] 220 10*3/uL Normal 150-400 [facility] Comment on above: Order Comment: Speci men Type: BLOOD SPECIMEN Ordering Facility: [facility] Address: [address] [place] [address] Performed By: #### 5 8410-2 #### [facility] CLIA [id number] [address] [place] [address] [place] RBC (Bld) [#/Vol] 2.54 10*6/uL Low 4.20-6.00 [facility] Comment on above: Order Comment: Speci men Type: BLOOD SPECIMEN Ordering Facility: [facility] Address: [address] [place] [address] Performed By: #### 5 8410-2 #### [facility] CLIA [id number] [address] [place] WBC (Bld) [#/Vol] 6.47 10*3/uL Normal 3.70-11.00 [facility] Comment on above: Order Comment: Speci men Type: BLOOD SPECIMEN Ordering Facility: [facility] Address: [address] [place] [address] Performed By: #### 5 8410-2 #### [facility] CLIA [id number] [address] [place] [address] [place] Basic metabolic 2000 panelon 09-09-2024 Anion gap [Moles/Vol] 10 mmol/L 8 - 15 mmol/L [facility] Calcium [Mass/Vol] 8.3 mg/dL Low 8.5 - 10. 2 mg/dL [facility] Chloride [Moles/Vol] 99 mmol/L 98 - 10 7 mmol/L [facility] CO2 [Moles/Vol] 24 mmol/L 22 - 30 mmol/L [facility] Creatinine [Mass/Vol] 1.14 mg/dL 0.73 - 1.22 mg/dL [facility] GFR/1.73 sq M.predicted among non-blacks MDRD (S/P/Bld) [Vol rate/Area] 70 mL/min/{1.73_m2} - PINF [facility] Comment on above: Estimated Glomerular Filtration Rate [...] 111 mg/dL High 74 - 99 mg/dL [facility] Comment on above: The [place] Diab[employer] s Association (ADA) provides guidance for [...] Standards of Medical Care in Diabetes 2016, [place] [employer]. Diabetes Care. 2016.39(Suppl 1). Potassium [Moles/Vol] 4.1 mmol/L 3.7 - 5.1 mmol/L [facility] Sodium [Moles/Vol] 133 mmol/L Low 136 - 144 mmol/L [facility] Urea nitrogen [Mass/Vol] 20 mg/dL 9 - 24 mg/d L [facility] Anion gap [Moles/Vol] 10 mmol/L Normal 8-15 [facility] Comment on above: Order Comment: Yojana riggins Type: BLOOD SPECIMEN Ordering Facility: [facility] Address: [address] [place] [address] Performed By: #### 2 4321-2 #### [facility] CLIA [id number] [address] [place] [address] [place] Calcium [Mass/Vol] 8.3 mg/dL Low 8.5-10.2 [facility] Comment on above: Order Comment: Yojana riggins Type: BLOOD SPECIMEN Ordering Facility: [facility] Address: [address] [place] [address] Performed By: #### 2 4321-2 #### [facility] CLIA [id number] [address] [place] [address] [place] Chloride [Moles/Vol] 99 mmol/L Normal 98-107 [facility] Comment on above: Order Comment: Speci men Type: BLOOD SPECIMEN Ordering Facility: [facility] Address: [address] [place] [address] Performed By: #### 2 4321-2 #### [facility] CLIA [id number] [address] [place] [address] [place] CO2 [Moles/Vol] 24 mmol/L Normal 22-30 [facility] Comment on above: Order Comment: Speci men Type: BLOOD SPECIMEN Ordering Facility: [facility] Address: [address] [place] [address] Performed By: #### 2 4321-2 #### [facility] CLIA [id number] [address] [place] [address] [place] Creatinine [Mass/Vol] 1.14 mg/dL Normal 0.73-1.22 [facility] Comment on above: Order Comment: Speci men Type: BLOOD SPECIMEN Ordering Facility: [facility] Address: [address] [place] [address] Performed By: #### 2 4321-2 #### [facility] CLIA [id number] [address] [place] [address] [place] Creatinine and Glomerular filtration rate.predicted panel (S/P/Bld) 70 mL/min/1.73m??? Normal >=60 [facility] Comment on above: Order Comment: Speci men Type: BLOOD SPECIMEN Ordering Facility: [facility] Address: [address] [place] [address] Result Comment: Apple mated Glomerular Filtration Rate [...] #### 2 4321-2 #### [facility] CLIA [id number] [address] [place] [address] [place] Glucose [Mass/Vol] 111 mg/dL High 74-99 [facility] Comment on above: Order Comment: Yojana riggins Type: BLOOD SPECIMEN Ordering Facility: [facility] Address: [address] [place] [address] Result Comment: The [place] Diabetes Association (ADA) provides guidance for cutoff [...] Standards of Medical Care in Diabetes 2016, [place] [employer]. Diabetes Care. 2016.39(Suppl 1). Performed By: #### 2 4321-2 #### [facility] CLIA [id number] [address] [place] [address] [place] Potassium [Moles/Vol] 4.1 mmol/L Normal 3.7-5.1 [facility] Comment on above: Order Comment: Yojana riggins Type: BLOOD SPECIMEN Ordering Facility: [facility] Address: [address] [place] [address] Performed By: #### 2 4321-2 #### [facility] CLIA [id number] [address] [place] [address] [place] Sodium [Moles/Vol] 133 mmol/L Low 136-144 [facility] Comment on above: Order Comment: Yojana men Type: BLOOD SPECIMEN Ordering Facility: [facility] Address: [address] [place] [address] Performed By: #### 2 4321-2 #### [facility] CLIA [id number] [address] [place] [address] [place] Urea nitrogen [Mass/Vol] 20 mg/dL Normal 9-24 [facility] Comment on above: Order Comment: Simrani men Type: BLOOD SPECIMEN Ordering Facility: [facility] Address: [address] [place] [address] Performed By: #### 2 4321-2 #### [facility] CLIA [id number] [address] [place] [address] [place] CBC panel Auto (Bld)on 09-09 Erythrocyte distribution width (RBC) [Ratio] 18.9 % High 11.5 - 15.0 % [facility] Hematocrit (Bld) [Volume fraction] 23.3 % Low 39.0 - 51.0 % [facility] Hemoglobin (Bld) [Mass/Vol] 7.4 g/dL Low 13.0 - 17.0 g/dL [facility] Interpretation and review of laboratory results Abnormal [facility] MCH (RBC) [Entitic mass] 30.7 pg 26. 0 - 34.0 pg [facility] MCHC (RBC) [Mass/Vol] 31.8 g/dL 30.5 - 36.0 g/dL [facility] MCV (RBC) [Entitic vol] 96.7 fL 80.0 - 100.0 fL [facility] Nucleated RBC (Bld) [#/Vol] NINF [facility] Platelet mean volume (Bld) [Entitic vol] 8.6 fL Low 9.0 - 12.7 fL [facility] Platelets (Bld) [#/Vol] 211 10*3/uL [facility] RBC (Bld) [#/Vol] 2.41 10*6/uL Low 4.20 - 6.0 0 m/uL [facility] WBC (Bld) [#/Vol] 5.56 10*3/uL [facility] Erythrocyte distribution width (RBC) [Ratio] 18.9 % High 11.5-15.0 [facility] Comment on above: Order Comment: Yojana riggins Type: BLOOD SPECIMEN Ordering Facility: [facility] Address: [address] [place] [address] Performed By: #### 2 4321-2 #### [facility] CLIA [id number] [address] STATES OF [facility] Hematocrit (Bld) [Volume fraction] 23.3 % Low 39.0-51.0 [facility] Comment on above: Order Comment: Yojana riggins Type: BLOOD SPECIMEN Ordering Facility: [facility] Address: [address] [place] [address] Performed By: #### 2 4321-2 #### [facility] CLIA [id number] [address] OF [facility] Hemoglobin (Bld) [Mass/Vol] 7.4 g/dL Low 13.0-17.0 [facility] Comment on above: Order Comment: Speci men Type: BLOOD SPECIMEN Ordering Facility: [facility] Address: [address] [place] [address] Performed By: #### 2 4321-2 #### [facility] CLIA [id number] [address] [place] MCH (RBC) [Entitic mass] 30.7 pg Normal 26.0-34.0 [facility] Comment on above: Order Comment: Speci men Type: BLOOD SPECIMEN Ordering Facility: [facility] Address: [address] [place] [address] Performed By: #### 2 4321-2 #### [facility] CLIA [id number] [address] MCHC (RBC) [Mass/Vol] 31.8 g/dL Normal 30.5-36.0 [facility] Comment on above: Order Comment: Speci men Type: BLOOD SPECIMEN Ordering Facility: [facility] Address: [address] [place] [address] Performed By: #### 2 4321-2 #### [facility] CLIA [id number] [address] MCV (RBC) [Entitic vol] 96.7 fL Normal 80.0-100.0 [facility] Comment on above: Order Comment: Speci men Type: BLOOD SPECIMEN Ordering Facility: [facility] Address: [address] [place] [address] Performed By: #### 2 4321-2 #### [facility] CLIA [id number] [address] OF [facility] Nucleated RBC (Bld) [#/Vol] 10*3/uL Normal <0.01 [facility] Comment on above: Order Comment: Speci men Type: BLOOD SPECIMEN Ordering Facility: [facility] Address: [address] [place] [address] Performed By: #### 2 4321-2 #### [facility] CLIA [id number] [address] [place] [address] [place] Platelet mean volume (Bld) [Entitic vol] 8.6 fL Low 9.0-12.7 [facility] Comment on above: Order Comment: Speci men Type: BLOOD SPECIMEN Ordering Facility: [facility] Address: [address] [place] [address] Performed By: #### 2 4321-2 #### [facility] CLIA [id number] [address] [place] [address] [place] Platelets (Bld) [#/Vol] 211 10*3/uL Normal 150-400 [facility] Comment on above: Order Comment: Speci men Type: BLOOD SPECIMEN Ordering Facility: [facility] Address: [address] [place] [address] Performed By: #### 2 4321-2 #### [facility] CLIA [id number] [address] [place] [address] [place] RBC (Bld) [#/Vol] 2.41 10*6/uL Low 4.20-6.00 [facility] Comment on above: Order Comment: Speci men Type: BLOOD SPECIMEN Ordering Facility: [facility] Address: [address] [place] [address] Performed By: #### 2 4321-2 #### [facility] CLIA [id number] [address] [place] [address] [place] WBC (Bld) [#/Vol] 5.56 10*3/uL Normal 3.70-11.00 [facility] Comment on above: Order Comment: Speci men Type: BLOOD SPECIMEN Ordering Facility: [facility] Address: [address] [place] [address] Performed By: #### 2 4321-2 #### [facility] CLIA [id number] [address] [place] [address] [place] CNPNon 09-09-2024 CNPN Normal [facility] NT PRO BNPon 09-09-2024 Natriuretic peptide.B prohormone N-Terminal [Mass/Vol] 5754 pg/mL High NINF - 125 pg/mL [facility] NT-proBNP SerPl-mCncon 09-09 Natriuretic peptide.B prohormone N-Terminal [Mass/Vol] 5754 pg/mL High <125 [facility] Comment on above: Order Comment: Specadonis riggins Type: BLOOD SPECIMEN Ordering Facility: [facility] Address: [address] [place] [address] Performed By: #### 2 4321-2 #### [facility] CLIA [id number] [address] [place] [address] [place] No Panel Informationon 09-09 Interpretation and review of laboratory results Abnormal [facility] Basic metabolic 2000 panelon 09-08-2024 Anion gap [Moles/Vol] 10 mmol/L Normal 8-15 [facility] Comment on above: Order Comment: Yojana riggins Type: BLOOD SPECIMEN Ordering Facility: [facility] Address: [address] [place] [address] Performed By: #### 2 4321-2 #### [facility] CLIA [id number] [address] [place] [address] [place] Calcium [Mass/Vol] 8.2 mg/dL Low 8.5-10.2 [facility] Comment on above: Order Comment: Yojana riggins Type: BLOOD SPECIMEN Ordering Facility: [facility] Address: [address] [place] [address] Performed By: #### 2 4321-2 #### [facility] CLIA [id number] [address] [place] [address] [place] Chloride [Moles/Vol] 100 mmol/L Normal 98-107 [facility] Comment on above: Order Comment: Yojana riggins Type: BLOOD SPECIMEN Ordering Facility: [facility] Address: [address] [place] [address] Performed By: #### 2 4321-2 #### [facility] CLIA [id number] [address] [place] CO2 [Moles/Vol] 24 mmol/L Normal 22-30 [facility] Comment on above: Order Comment: Yojana riggins Type: BLOOD SPECIMEN Ordering Facility: [facility] Address: [address] [place] [address] Performed By: #### 2 4321-2 #### [facility] CLIA [id number] [address] [place] Creatinine [Mass/Vol] 1.17 mg/dL Normal 0.73-1.22 [facility] Comment on above: Order Comment: Yojana riggins Type: BLOOD SPECIMEN Ordering Facility: [facility] Address: [address] [place] [address] Performed By: #### 2 4321-2 #### [facility] CLIA [id number] [address] Creatinine and Glomerular filtration rate.predicted panel (S/P/Bld) 67 mL/min/1.73m??? Normal >=60 [facility] Comment on above: Order Comment: Yojana riggins Type: BLOOD SPECIMEN Ordering Facility: [facility] Address: [address] [place] [address] Result Comment: Apple mated Glomerular Filtration Rate [...] GFR. Performed By: #### 2 4321-2 #### [facility] CLIA [id number] [address] [place] Glucose [Mass/Vol] 148 mg/dL High 74-99 [facility] Comment on above: Order Comment: Yojana riggins Type: BLOOD SPECIMEN Ordering Facility: [facility] Address: [address] [place] [address] Result Comment: The [place] Diabetes Association (ADA) provides guidance for cutoff [...] Standards of Medical Care in Diabetes 2016, [place] [employer]. Diabetes Care. 2016.39(Suppl 1). Performed By: #### 2 4321-2 #### [facility] CLIA [id number] [address] [place] Potassium [Moles/Vol] 4.2 mmol/L Normal 3.7-5.1 [facility] Comment on above: Order Comment: Yojana riggins Type: BLOOD SPECIMEN Ordering Facility: [facility] Address: [address] [place] [address] Performed By: #### 2 4321-2 #### [facility] CLIA [id number] [address] STATES [facility] Sodium [Moles/Vol] 134 mmol/L Low 136-144 [facility] Comment on above: Order Comment: Yojana riggins Type: BLOOD SPECIMEN Ordering Facility: [facility] Address: [address] [place] [address] Performed By: #### 2 4321-2 #### [facility] CLIA [id number] [address] Urea nitrogen [Mass/Vol] 26 mg/dL High 9-24 [facility] Comment on above: Order Comment: Yojana riggins Type: BLOOD SPECIMEN Ordering Facility: [facility] Address: [address] [place] [address] Performed By: #### 2 4321-2 #### [facility] CLIA [id number] [address] CBC panel Auto (Bld)on 09-08 Erythrocyte distribution width (RBC) [Ratio] 19.0 % High 11.5-15.0 [facility] Comment on above: Order Comment: Speci men Type: BLOOD SPECIMEN Ordering Facility: [facility] Address: [address] [place] [address] Performed By: #### 5 8410-2 #### [facility] CLIA [id number] [address] Hematocrit (Bld) [Volume fraction] 22.8 % Low 39.0-51.0 [facility] Comment on above: Order Comment: Speci men Type: BLOOD SPECIMEN Ordering Facility: [facility] Address: [address] [place] [address] Performed By: #### 5 8410-2 #### [facility] CLIA [id number] [address] OF [facility] Hemoglobin (Bld) [Mass/Vol] 7.3 g/dL Low 13.0-17.0 [facility] Comment on above: Order Comment: Speci men Type: BLOOD SPECIMEN Ordering Facility: [facility] Address: [address] [place] [address] Performed By: #### 5 8410-2 #### [facility] CLIA [id number] [address] MCH (RBC) [Entitic mass] 30.3 pg Normal 26.0-34.0 [facility] Comment on above: Order Comment: Speci men Type: BLOOD SPECIMEN Ordering Facility: [facility] Address: [address] [place] [address] Performed By: #### 5 8410-2 #### [facility] CLIA [id number] [address] MCHC (RBC) [Mass/Vol] 32.0 g/dL Normal 30.5-36.0 [facility] Comment on above: Order Comment: Speci men Type: BLOOD SPECIMEN Ordering Facility: [facility] Address: [address] [place] [address] Performed By: #### 5 8410-2 #### [facility] CLIA [id number] [address] MCV (RBC) [Entitic vol] 94.6 fL Normal 80.0-100.0 [facility] Comment on above: Order Comment: Speci men Type: BLOOD SPECIMEN Ordering Facility: [facility] Address: [address] [place] [address] Performed By: #### 5 8410-2 #### [facility] CLIA [id number] [address] [place] [address] [place] Nucleated RBC (Bld) [#/Vol] 10*3/uL Normal <0.01 [facility] Comment on above: Order Comment: Speci men Type: BLOOD SPECIMEN Ordering Facility: [facility] Address: [address] [place] [address] Performed By: #### 5 8410-2 #### [facility] CLIA [id number] [address] [place] [address] [place] Platelet mean volume (Bld) [Entitic vol] 8.5 fL Low 9.0-12.7 [facility] Comment on above: Order Comment: Speci men Type: BLOOD SPECIMEN Ordering Facility: [facility] Address: [address] [place] [address] Performed By: #### 5 8410-2 #### [facility] CLIA [id number] [address] [place] [address] [place] Platelets (Bld) [#/Vol] 215 10*3/uL Normal 150-400 [facility] Comment on above: Order Comment: Speci men Type: BLOOD SPECIMEN Ordering Facility: [facility] Address: [address] [place] [address] Performed By: #### 5 8410-2 #### [facility] CLIA [id number] [address] [place] [address] [place] RBC (Bld) [#/Vol] 2.41 10*6/uL Low 4.20-6.00 [facility] Comment on above: Order Comment: Speci men Type: BLOOD SPECIMEN Ordering Facility: [facility] Address: [address] [place] [address] Performed By: #### 5 8410-2 #### [facility] CLIA [id number] [address] [place] [address] [place] WBC (Bld) [#/Vol] 5.89 10*3/uL Normal 3.70-11.00 [facility] Comment on above: Order Comment: Yojana riggins Type: BLOOD SPECIMEN Ordering Facility: [facility] Address: [address] [place] [address] Performed By: #### 5 8410-2 #### [facility] CLIA [id number] [address] [place] CBC panel Auto (Bld)on 09-07 Erythrocyte distribution width (RBC) [Ratio] 19.2 % High 11.5-15.0 [facility] Comment on above: Order Comment: Yojana riggins Type: BLOOD SPECIMEN Ordering Facility: [facility] Address: [address] [place] [address] Performed By: #### 5 8410-2 #### [facility] CLIA [id number] [address] STATES [facility] Hematocrit (Bld) [Volume fraction] 21.7 % Low 39.0-51.0 [facility] Comment on above: Order Comment: Yojana riggins Type: BLOOD SPECIMEN Ordering Facility: [facility] Address: [address] [place] [address] Performed By: #### 5 8410-2 #### [facility] CLIA [id number] [address] STATES OF [facility] Hemoglobin (Bld) [Mass/Vol] 7.1 g/dL Low 13.0-17.0 [facility] Comment on above: Order Comment: Yojana riggins Type: BLOOD SPECIMEN Ordering Facility: [facility] Address: [address] [place] [address] Performed By: #### 5 8410-2 #### [facility] CLIA [id number] [address] Interpretation and review of laboratory results Abnormal [facility] MCH (RBC) [Entitic mass] 30.6 pg Normal 26.0-34.0 [facility] Comment on above: Order Comment: Yojana riggins Type: BLOOD SPECIMEN Ordering Facility: [facility] Address: [address] [place] [address] Performed By: #### 5 8410-2 #### [facility] CLIA [id number] [address] MCHC (RBC) [Mass/Vol] 32.7 g/dL Normal 30.5-36.0 [facility] Comment on above: Order Comment: Speci men Type: BLOOD SPECIMEN Ordering Facility: [facility] Address: [address] [place] [address] Performed By: #### 5 8410-2 #### [facility] CLIA [id number] [address] [place] MCV (RBC) [Entitic vol] 93.5 fL Normal 80.0-100.0 C [facility] Comment on above: Order Comment: Speci men Type: BLOOD SPECIMEN Ordering Facility: [facility] Address: [address] [place] [address] Performed By: #### 5 8410-2 #### [facility] CLIA [id number] [address] Nucleated RBC (Bld) [#/Vol] NINF [facility] Platelet mean volume (Bld) [Entitic vol] 8.7 fL Low 9.0-12.7 [facility] Comment on above: Order Comment: Speci men Type: BLOOD SPECIMEN Ordering Facility: [facility] Address: [address] [place] [address] Performed By: #### 5 8410-2 #### [facility] CLIA [id number] [address] Platelets (Bld) [#/Vol] 220 10*3/uL Normal 150-400 [facility] Comment on above: Order Comment: Speci men Type: BLOOD SPECIMEN Ordering Facility: [facility] Address: [address] [place] [address] Performed By: #### 5 8410-2 #### [facility] CLIA [id number] [address] [place] RBC (Bld) [#/Vol] 2.32 10*6/uL Low 4.20-6.00 [facility] Comment on above: Order Comment: Speci men Type: BLOOD SPECIMEN Ordering Facility: [facility] Address: [address] [place] [address] Performed By: #### 5 8410-2 #### [facility] CLIA [id number] [address] [place] [address] [place] WBC (Bld) [#/Vol] 6.86 10*3/uL Normal 3.70-11.00 [facility] Comment on above: Order Comment: Speci men Type: BLOOD SPECIMEN Ordering Facility: [facility] Address: [address] [place] [address] Performed By: #### 5 8410-2 #### [facility] CLIA [id number] [address] [place] [address] [place] [facility] Nucleated RBC (Bld) [#/Vol] 10*3/uL Normal <0.01 [facility] Comment on above: Order Comment: Speci men Type: BLOOD SPECIMEN Ordering Facility: [facility] Address: [address] [place] [address] Performed By: #### 5 8410-2 #### [facility] CLIA [id number] [address] [place] [address] [place] TYPE + SCREENon 09-07-2024 ABO O Normal [facility] Comment on above: Order Comment: Speci men Type: BLOOD SPECIMEN Ordering Facility: [facility] Address: [address] [place] [address] Performed By: #### T SCR #### [facility] CLIA [id number] [address] [place] [address] [place] Rh Nom (Bld) Positive Normal [facility] Comment on above: Order Comment: Speci men Type: BLOOD SPECIMEN Ordering Facility: [facility] Address: [address] [place] [address] Performed By: #### T SCR #### [facility] CLIA [id number] [address] [place] [address] [place] TYPE AND SCREEN EXPIRATION 09/10/2024 23:59 Normal [facility] Comment on above: Order Comment: Speci men Type: BLOOD SPECIMEN Ordering Facility: [facility] Address: [address] [place] [address] Performed By: #### T SCR #### [facility] CLIA [id number] [address] Urinalysis complete panel (U )on 09-07-2024 Bacteria LM.HPF (Urine sed) [#/Area] Rare Abnormal None Seen [facility] Comment on above: Order Comment: Speci men Type: URINE SPECIMEN Ordering Facility: [facility] Address: [address] [place] [address] Performed By: #### 2 4356-8 #### [facility] CLIA [id number] [address] Bilirubin Ql (U) Negative Normal Negative [facility] Comment on above: Order Comment: Speci men Type: URINE SPECIMEN Ordering Facility: [facility] Address: [address] [place] [address] Performed By: #### 2 4356-8 #### [facility] CLIA [id number] [address] [place] Clarity (Unsp spec) Clear Normal Clear [facility] Comment on above: Order Comment: Speci men Type: URINE SPECIMEN Ordering Facility: [facility] Address: [address] [place] [address] Performed By: #### 2 4356-8 #### [facility] CLIA [id number] [address] Color (U) Yellow Normal Yellow [facility] Comment on above: Order Comment: Speci men Type: URINE SPECIMEN Ordering Facility: [facility] Address: [address] [place] [address] Performed By: #### 2 4356-8 #### [facility] CLIA [id number] [address] Glucose Test strip (U) [Mass/Vol] Negative Normal Negative [facility] Comment on above: Order Comment: Speci men Type: URINE SPECIMEN Ordering Facility: [facility] Address: [address] [place] [address] Performed By: #### 2 4356-8 #### [facility] CLIA [id number] [address] [place], [place] [address] [place] [address] [place] Hemoglobin Ql (U) 3+ Abnormal Negative [facility] Comment on above: Order Comment: Speci men Type: URINE SPECIMEN Ordering Facility: [facility] Address: [address] [place] [address] Performed By: #### 2 4356-8 #### [facility] CLIA [id number] [address] [place] [address] [place] Ketones Ql (U) Negative Normal Negative [facility] Comment on above: Order Comment: Speci men Type: URINE SPECIMEN Ordering Facility: [facility] Address: [address] [place] [address] Performed By: #### 2 4356-8 #### [facility] CLIA [id number] [address] OF [place] Leukocyte esterase Test strip Ql (U) Trace Abnormal Negative [facility] Comment on above: Order Comment: Speci men Type: URINE SPECIMEN Ordering Facility: [facility] Address: [address] [place] [address] Performed By: #### 2 4356-8 #### [facility] CLIA [id number] [address] OF [place] Nitrite Ql (U) Negative Normal Negative [facility] Comment on above: Order Comment: Speci men Type: URINE SPECIMEN Ordering Facility: [facility] Address: [address] [place] [address] Performed By: #### 2 4356-8 #### [facility] CLIA [id number] [address] OF [place] pH (U) 6.0 [pH] Normal 5.0-8.0 [facility] Comment on above: Order Comment: Speci men Type: URINE SPECIMEN Ordering Facility: [facility] Address: [address] [place] [address] Performed By: #### 2 4356-8 #### [facility] CLIA [id number] [address] Protein (U) [Mass/Vol] Negative Normal Negative [facility] Comment on above: Order Comment: Speci men Type: URINE SPECIMEN Ordering Facility: [facility] Address: [address] [place] [address] Performed By: #### 2 4356-8 #### [facility] CLIA [id number] [address] RBC LM.HPF (Urine sed) [#/Area] 11-25 /HPF Abnormal 0-3 /HPF [facility] Comment on above: Order Comment: Speci men Type: URINE SPECIMEN Ordering Facility: [facility] Address: [address] [place] [address] Performed By: #### 2 4356-8 #### [facility] CLIA [id number] [address] Specific gravity (U) [Rel density] 1.015 Normal 1.005-1.030 [facility] Comment on above: Order Comment: Speci men Type: URINE SPECIMEN Ordering Facility: [facility] Address: [address] [place] [address] Performed By: #### 2 4356-8 #### [facility] CLIA [id number] [address] Urobilinogen Ql (U) 0.2 EU/dL Normal 0.2-1.0 EU/dL [facility] Comment on above: Order Comment: Speci men Type: URINE SPECIMEN Ordering Facility: [facility] Address: [address] [place] [address] Performed By: #### 2 4356-8 #### [facility] CLIA [id number] [address] WBC LM.HPF (Urine sed) [#/Area] 0-5 /HPF Normal 0-5 /HPF [facility] Comment on above: Order Comment: Speci men Type: URINE SPECIMEN Ordering Facility: [facility] Address: [address] [place] [address] Performed By: #### 2 4356-8 #### [facility] CLIA [id number] [address] [place] [address] [place] Basic metabolic 2000 panelon 09-06-2024 Anion gap [Moles/Vol] 11 mmol/L 8 - 15 mmol/L [facility] Calcium [Mass/Vol] 8.6 mg/dL 8.5 - 10. 2 mg/dL [facility] Chloride [Moles/Vol] 94 mmol/L Low 98 - 10 7 mmol/L [facility] CO2 [Moles/Vol] 24 mmol/L 22 - 30 mmol/L [facility] Creatinine [Mass/Vol] 1.5 mg/dL High 0.73 - 1.22 mg/dL [facility] GFR/1.73 sq M.predicted among non-blacks MDRD (S/P/Bld) [Vol rate/Area] 50 mL/min/{1.73_m2} Low - PINF [facility] Comment on above: Estimated Glomerular Filtration Rate [...] [Mass/Vol] 90 mg/dL 74 - 99 mg/dL [facility] Comment on above: The [place] Diabete s Association (ADA) provides guidance for [...] Standards of Medical Care in Diabetes 2016, [place] Diabetes Association. Diabetes Care. 2016.39(Suppl 1). Interpretation and review of laboratory results Abnormal [facility] Potassium [Moles/Vol] 3.9 mmol/L 3.7 - 5.1 mmol/L [facility] Sodium [Moles/Vol] 129 mmol/L Low 136 - 144 mmol/L [facility] Urea nitrogen [Mass/Vol] 35 mg/dL High 9 - 24 mg/d L [facility] Anion gap [Moles/Vol] 11 mmol/L Normal 8-15 [facility] Comment on above: Order Comment: Speci men Type: BLOOD SPECIMEN Ordering Facility: [facility] Address: [address] [place] [address] Performed By: #### 2 4321-2 #### [facility] CLIA [id number] [address] [place] [address] [place] Calcium [Mass/Vol] 8.6 mg/dL Normal 8.5-10.2 [facility] Comment on above: Order Comment: Speci men Type: BLOOD SPECIMEN Ordering Facility: [facility] Address: [address] [place] [address] Performed By: #### 2 4321-2 #### [facility] CLIA [id number] [address] [place] [address] [place] Chloride [Moles/Vol] 94 mmol/L Low 98-107 [facility] Comment on above: Order Comment: Speci men Type: BLOOD SPECIMEN Ordering Facility: [facility] Address: [address] [place] [address] Performed By: #### 2 4321-2 #### [facility] CLIA [id number] [address] [place] [address] [place] CO2 [Moles/Vol] 24 mmol/L Normal 22-30 [facility] Comment on above: Order Comment: Speci men Type: BLOOD SPECIMEN Ordering Facility: [facility] Address: [address] [place] [address] Performed By: #### 2 4321-2 #### [facility] CLIA [id number] [address] [place] [address] [place] Creatinine [Mass/Vol] 1.50 mg/dL High 0.73-1.22 [facility] Comment on above: Order Comment: Speci men Type: BLOOD SPECIMEN Ordering Facility: [facility] Address: [address] [place] [address] Performed By: #### 2 4321-2 #### [facility] CLIA [id number] [address] [place] [address] [place] Creatinine and Glomerular filtration rate.predicted panel (S/P/Bld) 50 mL/min/1.73m??? Low >=60 [facility] Comment on above: Order Comment: Yojana riggins Type: BLOOD SPECIMEN Ordering Facility: [facility] Address: [address] [place] [address] Result Comment: Apple mated Glomerular Filtration Rate [...] #### 2 4321-2 #### [facility] CLIA [id number] [address] [place] [address] [place] Glucose [Mass/Vol] 90 mg/dL Normal 74-99 [facility] Comment on above: Order Comment: Yojana riggins Type: BLOOD SPECIMEN Ordering Facility: [facility] Address: [address] [place] [address] Result Comment: The [place] Diabetes Association (ADA) provides guidance for cutoff [...] Standards of Medical Care in Diabetes 2016, [place] Diabetes [employer]. Diabetes Care. 2016.39(Suppl 1). Performed By: #### 2 4321-2 #### [facility] CLIA [id number] [address] [place] [address] [place] Potassium [Moles/Vol] 3.9 mmol/L Normal 3.7-5.1 [facility] Comment on above: Order Comment: Simrani gilson Type: BLOOD SPECIMEN Ordering Facility: [facility] Address: [address] [place] [address] Performed By: #### 2 4321-2 #### [facility] CLIA [id number] [address] [place] [address] [place] Sodium [Moles/Vol] 129 mmol/L Low 136-144 [facility] Comment on above: Order Comment: Speci men Type: BLOOD SPECIMEN Ordering Facility: [facility] Address: [address] [place] [address] Performed By: #### 2 4321-2 #### [facility] CLIA [id number] [address] [place] [address] [place] Urea nitrogen [Mass/Vol] 35 mg/dL High 9-24 [facility] Comment on above: Order Comment: Simrani men Type: BLOOD SPECIMEN Ordering Facility: [facility] Address: [address] [place] [address] Performed By: #### 2 4321-2 #### [facility] CLIA [id number] [address] [place] [address] [place] CBC panel Auto (Bld)on 09-06 Erythrocyte distribution width (RBC) [Ratio] 18.6 % High 11.5 - 15.0 % [facility] Hematocrit (Bld) [Volume fraction] 22.2 % Low 39.0 - 51.0 % [facility] Hemoglobin (Bld) [Mass/Vol] 7.4 g/dL Low 13.0 - 17.0 g/dL [facility] Interpretation and review of laboratory results Abnormal [facility] MCH (RBC) [Entitic mass] 30.8 pg 26. 0 - 34.0 pg [facility] MCHC (RBC) [Mass/Vol] 33.3 g/dL 30.5 - 36.0 g/dL [facility] MCV (RBC) [Entitic vol] 92.5 fL 80.0 - 100.0 fL [facility] Nucleated RBC (Bld) [#/Vol] NINF [facility] Platelet mean volume (Bld) [Entitic vol] 8.7 fL Low 9.0 - 12.7 fL [facility] Platelets (Bld) [#/Vol] 209 10*3/uL [facility] RBC (Bld) [#/Vol] 2.4 10*6/uL Low 4.20 - 6.0 0 m/uL [facility] WBC (Bld) [#/Vol] 8.3 10*3/uL [facility] Erythrocyte distribution width (RBC) [Ratio] 18.6 % High 11.5-15.0 [facility] Comment on above: Order Comment: Speci men Type: BLOOD SPECIMEN Ordering Facility: [facility] Address: [address] [place] [address] Performed By: #### 2 4321-2 #### [facility] CLIA [id number] [address] [place] Hematocrit (Bld) [Volume fraction] 22.2 % Low 39.0-51.0 [facility] Comment on above: Order Comment: Speci men Type: BLOOD SPECIMEN Ordering Facility: [facility] Address: [address] [place] [address] Performed By: #### 2 4321-2 #### [facility] CLIA [id number] [address] [place] [address] [place] Hemoglobin (Bld) [Mass/Vol] 7.4 g/dL Low 13.0-17.0 [facility] Comment on above: Order Comment: Speci men Type: BLOOD SPECIMEN Ordering Facility: [facility] Address: [address] [place] [address] Performed By: #### 2 4321-2 #### [facility] CLIA [id number] [address] [place] [address] [place] MCH (RBC) [Entitic mass] 30.8 pg Normal 26.0-34.0 [facility] Comment on above: Order Comment: Speci men Type: BLOOD SPECIMEN Ordering Facility: [facility] Address: [address] [place] [address] Performed By: #### 2 4321-2 #### [facility] CLIA [id number] [address] [place] [address] [place] MCHC (RBC) [Mass/Vol] 33.3 g/dL Normal 30.5-36.0 [facility] Comment on above: Order Comment: Speci men Type: BLOOD SPECIMEN Ordering Facility: [facility] Address: [address] [place] [address] Performed By: #### 2 4321-2 #### [facility] CLIA [id number] [address] [place] [address] [place] MCV (RBC) [Entitic vol] 92.5 fL Normal 80.0-100.0 [facility] Comment on above: Order Comment: Speci men Type: BLOOD SPECIMEN Ordering Facility: [facility] Address: [address] [place] [address] Performed By: #### 2 4321-2 #### [facility] CLIA [id number] [address] [place] [address] [place] Nucleated RBC (Bld) [#/Vol] 10*3/uL Normal <0.01 [facility] Comment on above: Order Comment: Speci men Type: BLOOD SPECIMEN Ordering Facility: [facility] Address: [address] [place] [address] Performed By: #### 2 4321-2 #### [facility] CLIA [id number] [address] [place] Platelet mean volume (Bld) [Entitic vol] 8.7 fL Low 9.0-12.7 [facility] Comment on above: Order Comment: Speci men Type: BLOOD SPECIMEN Ordering Facility: [facility] Address: [address] [place] [address] Performed By: #### 2 4321-2 #### [facility] CLIA [id number] [address] [place] [address] [place] Platelets (Bld) [#/Vol] 209 10*3/uL Normal 150-400 [facility] Comment on above: Order Comment: Speci men Type: BLOOD SPECIMEN Ordering Facility: [facility] Address: [address] [place], [place] [address] Performed By: #### 2 4321-2 #### [facility] CLIA [id number] [address] [place] [address] [place] RBC (Bld) [#/Vol] 2.40 10*6/uL Low 4.20-6.00 [facility] Comment on above: Order Comment: Speci men Type: BLOOD SPECIMEN Ordering Facility: [facility] Address: [address] [place] [address] Performed By: #### 2 4321-2 #### [facility] CLIA [id number] [address] [place] [address] [place] WBC (Bld) [#/Vol] 8.30 10*3/uL Normal 3.70-11.00 [facility] Comment on above: Order Comment: Speci men Type: BLOOD SPECIMEN Ordering Facility: [facility] Address: [address] [place] [address] Performed By: #### 2 4321-2 #### [facility] CLIA [id number] [address] [place] NT PRO BNPon 09-06-2024 Natriuretic peptide.B prohormone N-Terminal [Mass/Vol] 8521 pg/mL High NINF - 125 pg/mL [facility] NT-proBNP SerPl-ncon 09-06 Natriuretic peptide.B prohormone N-Terminal [Mass/Vol] 8521 pg/mL High <125 [facility] Comment on above: Order Comment: Speci men Type: BLOOD SPECIMEN Ordering Facility: [facility] Address: [address] [place] [address] Performed By: #### 2 4321-2 #### [facility] CLIA [id number] [address] [place] Natriuretic peptide.B prohor j carlos N-Terminal [Mass/Vol]on 09-06-2024 Interpretation and review of laboratory results Abnormal [facility] Basic metabolic 2000 panelon 09-05-2024 Anion gap [Moles/Vol] 10 mmol/L Normal 8-15 [facility] Comment on above: Order Comment: Speci men Type: BLOOD SPECIMENOrdering Facility: [facility] Address: [address] [place] [address] Performed By: #### 2 4321-2 ####[facility] [id number] [place] [address] [place] Calcium [Mass/Vol] 8.8 mg/dL Normal 8.5-10.2 [facility] Comment on above: Order Comment: Speci men Type: BLOOD SPECIMENOrdering Facility: [facility] Address: [address] [place] [address] Performed By: #### 2 4321-2 ####[facility]ORYCLIA [id number] [place] [address] [place] Chloride [Moles/Vol] 95 mmol/L Low 98-107 [facility] Comment on above: Order Comment: Speci men Type: BLOOD SPECIMENOrdering Facility: [facility] Address: [address] [place] [address] Performed By: #### 2 4321-2 ####[facility]ORYCLIA [id number] [place] [address] [place] CO2 [Moles/Vol] 24 mmol/L Normal 22-30 [facility] Comment on above: Order Comment: Speci men Type: BLOOD SPECIMENOrdering Facility: [facility] Address: [address] [place] [address] Performed By: #### 2 4321-2 ####[facility]ORYCLIA [id number] [place] [address] [place] Creatinine [Mass/Vol] 1.54 mg/dL High 0.73-1.22 [facility] Comment on above: Order Comment: Speci men Type: BLOOD SPECIMENOrdering Facility: [facility] Address: [address] [place] [address] Performed By: #### 2 4321-2 ####[facility]ORYCLIA [id number] [place] [address] [place] Creatinine and Glomerular filtration rate.predicted panel (S/P/Bld) 49 mL/min/1.73m??? Low >=60 [facility] Comment on above: Order Comment: Yojana riggins Type: BLOOD SPECIMENOrdering Facility: [facility] Address: [address] [place] [address] Result Comment: Apple mated Glomerular Filtration Rate [...] actual GFR. Performed By: #### 2 4321-2 ####[facility]ORYCLIA [id number] [place] [address] [place] Glucose [Mass/Vol] 89 mg/dL Normal 74-99 [facility] Comment on above: Order Comment: Yojana riggins Type: BLOOD SPECIMENOrdering Facility: [facility] Address: [address] [place] [address] Result Comment: The [place] Diabetes Association (ADA) provides guidance for cutoff [...] Standards of Medical Care in Diabetes 2016, [place] Diabetes Association. Diabetes Care. 2016.39(Suppl 1). Performed By: #### 2 4321-2 ####[facility]ORYCLIA [id number] [place] [address] [place] Potassium [Moles/Vol] 4.0 mmol/L Normal 3.7-5.1 [facility] Comment on above: Order Comment: Yojana riggins Type: BLOOD SPECIMENOrdering Facility: [facility] Address: [address] [place] [address] Performed By: #### 2 4321-2 ####[facility]ATORYCLIA [id number] [place] [id number] [place] [facility] Sodium [Moles/Vol] 129 mmol/L Low 136-144 [facility] Comment on above: Order Comment: Speci men Type: BLOOD SPECIMENOrdering Facility: [facility] Address: [address] [place] [address] Performed By: #### 2 4321-2 ####[facility]ORYCLIA [id number] [address] [place] Urea nitrogen [Mass/Vol] 36 mg/dL High 9-24 [facility] Comment on above: Order Comment: Speci men Type: BLOOD SPECIMENOrdering Facility: [facility] Address: [address] [place] [address] Performed By: #### 2 4321-2 ####[facility]ORYCLIA [id number] [address] [place] CASE MANAGEMon 09-05-2024 CASE MANAGEM Normal [facility] CASE MANAGEM Normal [facility] CBC panel Auto (Bld)on 09-05 Erythrocyte distribution width (RBC) [Ratio] 18.3 % High 11.5-15.0 [facility] Comment on above: Order Comment: Speci men Type: BLOOD SPECIMENOrdering Facility: [facility] Address: [address] [place] [address] Performed By: #### 5 8410-2 ####[facility]ATORYCLIA [id number] [address] [place] Hematocrit (Bld) [Volume fraction] 23.5 % Low 39.0-51.0 [facility] Comment on above: Order Comment: Speci men Type: BLOOD SPECIMENOrdering Facility: [facility] Address: [address] [place] [address] Performed By: #### 5 8410-2 ####[facility]ATORYCLIA [id number] [place] [address] Hemoglobin (Bld) [Mass/Vol] 7.6 g/dL Low 13.0-17.0 [facility] Comment on above: Order Comment: Speci men Type: BLOOD SPECIMENOrdering Facility: [facility] Address: [address] [place] [address] Performed By: #### 5 8410-2 ####[facility]ATORYCLIA [id number] [address] MCH (RBC) [Entitic mass] 29.9 pg Normal 26.0-34.0 [facility] Comment on above: Order Comment: Speci men Type: BLOOD SPECIMENOrdering Facility: [facility] Address: [address] [place] [address] Performed By: #### 5 8410-2 ####[facility]ATORYCLIA [id number] [address] MCHC (RBC) [Mass/Vol] 32.3 g/dL Normal 30.5-36.0 [facility] Comment on above: Order Comment: Speci men Type: BLOOD SPECIMENOrdering Facility: [facility] Address: [address] [place] [address] Performed By: #### 5 8410-2 ####[facility]ATORYCLIA [id number] [address] MCV (RBC) [Entitic vol] 92.5 fL Normal 80.0-100.0 [facility] Comment on above: Order Comment: Speci men Type: BLOOD SPECIMENOrdering Facility: [facility] Address: [address] [place] [address] Performed By: #### 5 8410-2 ####[facility]ATORYCLIA [id number] [address] Nucleated RBC (Bld) [#/Vol] 10*3/uL Normal <0.01 [facility] Comment on above: Order Comment: Speci men Type: BLOOD SPECIMENOrdering Facility: [facility] Address: [address] [place] [address] Performed By: #### 5 8410-2 ####[facility]ATORYCLIA [id number] [address] Platelet mean volume (Bld) [Entitic vol] 9.0 fL Normal 9.0-12.7 [facility] Comment on above: Order Comment: Speci men Type: BLOOD SPECIMENOrdering Facility: [facility] Address: [address] [place] [address] Performed By: #### 5 8410-2 ####[facility]ORATORYCLIA [id number] [address] [place] Platelets (Bld) [#/Vol] 220 10*3/uL Normal 150-400 [facility] Comment on above: Order Comment: Speci men Type: BLOOD SPECIMENOrdering Facility: [facility] Address: [address] [place] [address] Performed By: #### 5 8410-2 ####[facility] LABORATORYCLIA [id number] [place] [address] [place] RBC (Bld) [#/Vol] 2.54 10*6/uL Low 4.20-6.00 [facility] Comment on above: Order Comment: Speci men Type: BLOOD SPECIMENOrdering Facility: [facility] Address: [address] [place] [address] Performed By: #### 5 8410-2 ####[facility] LABORATORYCLIA [id number] [place] [address] [place] WBC (Bld) [#/Vol] 10.65 10*3/uL Normal 3.70-11.00 [facility] Comment on above: Order Comment: Speci men Type: BLOOD SPECIMENOrdering Facility: [facility] Address: [address] [place] [address] Performed By: #### 5 8410-2 ####[facility] LABORATORYCLIA [id number] [address] [place] CNDSon 09-05-2024 CNDS Normal [facility] CNPNon 09-05-2024 [facility] ARIS ATKINS ([id number]) 1955 Date Time Provider Department 09/05/24 GABRIELA GARDUNO HCSIND During your visit today, we recorded the following information about you: Allergies As of Date: 09/05/2024 (No Known Allergies) Date Reviewed: 09/05/2024 Reviewed by: Krystyna Sands RN - Fully Assessed Reason for Visit: Home [...] once daily. Test-boost testosterone Max supplement - [employer] THYROID 120 mg tablet Take 120 mg [...] managed by this patient by: PATIENT Ishan Giang, COT Problem List As Of Date 09/05/2024 [...] Status:Closed by GABRIELA GARDUNO on 09/05/24 Normal [facility] NUTRITIONon 09-05-2024 NUTRITION Normal [facility] PT EDon 09-05-2024 PT ED Normal [facility] THERAPY NTon 09-05-2024 THERAPY NT Normal [facility] XR CHEST 1V FRONTALon 2024 XR CHEST 1V FRONTAL Normal [facility] Basic metabolic 2000 panelon 09-04-2024 Anion gap [Moles/Vol] 11 mmol/L Normal 8-15 [facility] Comment on above: Order Comment: Speci men Type: BLOOD SPECIMENOrdering Facility: [facility] Address: [address] [place] [address] Performed By: #### 2 4321-2 ####[facility] LABORATORYCLIA [id number] [place] [address] [place] Calcium [Mass/Vol] 8.5 mg/dL Normal 8.5-10.2 [facility] Comment on above: Order Comment: Speci men Type: BLOOD SPECIMENOrdering Facility: [facility] Address: [address] [place] [address] Performed By: #### 2 4321-2 ####[facility] LABORATORYCLIA [id number] [place] [address] [place] Chloride [Moles/Vol] 93 mmol/L Low 98-107 [facility] Comment on above: Order Comment: Speci men Type: BLOOD SPECIMENOrdering Facility: [facility] Address: [address] [place] [address] Performed By: #### 2 4321-2 ####[facility] LABORATORYCLIA [id number] [place] [address] [place] CO2 [Moles/Vol] 24 mmol/L Normal 22-30 [facility] Comment on above: Order Comment: Speci men Type: BLOOD SPECIMENOrdering Facility: [facility] Address: [address] [place] [address] Performed By: #### 2 4321-2 ####[facility] LABORATORYCLIA [id number] [address] [place] Creatinine [Mass/Vol] 1.56 mg/dL High 0.73-1.22 [facility] Comment on above: Order Comment: Speci men Type: BLOOD SPECIMENOrdering Facility: [facility] Address: [address] [place] [address] Performed By: #### 2 4321-2 ####[facility] LABORATORYCLIA [id number] [address] Creatinine and Glomerular filtration rate.predicted panel (S/P/Bld) 48 mL/min/1.73m??? Low >=60 [facility] Comment on above: Order Comment: Speci men Type: BLOOD SPECIMENOrdering Facility: [facility] Address: [address] [place] [address] Result Comment: Apple mated Glomerular Filtration Rate [...] actual GFR. Performed By: #### 2 4321-2 ####[facility] LABORATORYCLIA [id number] [address] [place] Glucose [Mass/Vol] 81 mg/dL Normal 74-99 [facility] Comment on above: Order Comment: Speci men Type: BLOOD SPECIMENOrdering Facility: [facility] Address: [address] [place] [address] Result Comment: The [place] Diabetes Association (ADA) provides guidance for cutoff [...] Standards of Medical Care in Diabetes 2016, [place] [employer]. Diabetes Care. 2016.39(Suppl 1). Performed By: #### 2 4321-2 ####[facility] LABORATORYCLIA [id number] [place] [address] [place] Potassium [Moles/Vol] 4.1 mmol/L Normal 3.7-5.1 [facility] Comment on above: Order Comment: Simrani gilson Type: BLOOD SPECIMENOrdering Facility: [facility] Address: [address] [place] [address] Performed By: #### 2 432-2 ####[facility] LABORATORYCLIA [id number] [place] [address] [place] Sodium [Moles/Vol] 128 mmol/L Low 136-144 [facility] Comment on above: Order Comment: Speci men Type: BLOOD SPECIMENOrdering Facility: [facility] Address: [address] [place] [address] Performed By: #### 2 4321-2 ####[facility] LABORATORYCLIA [id number] [place] [address] [place] Urea nitrogen [Mass/Vol] 39 mg/dL High 9-24 [facility] Comment on above: Order Comment: Simrani men Type: BLOOD SPECIMENOrdering Facility: [facility] Address: [address] [place] [address] Performed By: #### 2 4321-2 ####[facility] LABORATORYCLIA [id number] [place] [id number] [place] CASE MANAGEMon 09-04-2024 CASE MANAGEM Normal [facility] CBC panel Auto (Bld)on 09-04 Erythrocyte distribution width (RBC) [Ratio] 17.6 % High 11.5-15.0 [facility] Comment on above: Order Comment: Speci men Type: BLOOD SPECIMENOrdering Facility: [facility] Address: [address] [place] [address] Performed By: #### 5 8410-2 ####[facility] LABORATORYCLIA [id number] [address] Hematocrit (Bld) [Volume fraction] 22.7 % Low 39.0-51.0 [facility] Comment on above: Order Comment: Speci men Type: BLOOD SPECIMENOrdering Facility: [facility] Address: [address] [place] [address] Performed By: #### 5 8410-2 ####[facility] LABORATORYCLIA [id number] [address] [place] Hemoglobin (Bld) [Mass/Vol] 7.4 g/dL Low 13.0-17.0 [facility] Comment on above: Order Comment: Speci men Type: BLOOD SPECIMENOrdering Facility: [facility] Address: [address] [place] [address] Performed By: #### 5 8410-2 ####[facility] LABORATORYCLIA [id number] [address] [place] MCH (RBC) [Entitic mass] 30.6 pg Normal 26.0-34.0 [facility] Comment on above: Order Comment: Speci men Type: BLOOD SPECIMENOrdering Facility: [facility] Address: [address] [place] [address] Performed By: #### 5 8410-2 ####[facility] LABORATORYCLIA [id number] [address] [place] MCHC (RBC) [Mass/Vol] 32.6 g/dL Normal 30.5-36.0 [facility] Comment on above: Order Comment: Speci men Type: BLOOD SPECIMENOrdering Facility: [facility] Address: [address] [place] [address] Performed By: #### 5 8410-2 ####[facility] LABORATORYCLIA [id number] [address] STATES [facility] MCV (RBC) [Entitic vol] 93.8 fL Normal 80.0-100.0 [facility] Comment on above: Order Comment: Speci men Type: BLOOD SPECIMENOrdering Facility: [facility] Address: [address] [place] [address] Performed By: #### 5 8410-2 ####[facility] LABORATORYCLIA [id number] [address] [place] Nucleated RBC (Bld) [#/Vol] 0.02 10*3/uL High <0.01 [facility] Comment on above: Order Comment: Speci men Type: BLOOD SPECIMENOrdering Facility: [facility] Address: [address] [place] [address] Performed By: #### 5 8410-2 ####[facility] LABORATORYCLIA [id number] [address] [place] Platelet mean volume (Bld) [Entitic vol] 9.3 fL Normal 9.0-12.7 [facility] Comment on above: Order Comment: Speci men Type: BLOOD SPECIMENOrdering Facility: [facility] Address: [address] [place] [address] Performed By: #### 5 8410-2 ####[facility] LABORATORYCLIA [id number] [address] [place] Platelets (Bld) [#/Vol] 195 10*3/uL Normal 150-400 [facility] Comment on above: Order Comment: Speci men Type: BLOOD SPECIMENOrdering Facility: [facility] Address: [address] [place] [address] Performed By: #### 5 8410-2 ####[facility] LABORATORYCLIA [id number] [place] [address] [place] RBC (Bld) [#/Vol] 2.42 10*6/uL Low 4.20-6.00 [facility] Comment on above: Order Comment: Speci men Type: BLOOD SPECIMENOrdering Facility: [facility] Address: [address] [place] [address] Performed By: #### 5 8410-2 ####[facility] LABORATORYCLIA [id number] [address] STATES OF [facility] WBC (Bld) [#/Vol] 10.66 10*3/uL Normal 3.70-11.00 [facility] Comment on above: Order Comment: Speci men Type: BLOOD SPECIMENOrdering Facility: [facility] Address: [address] [place] [address] Performed By: #### 5 8410-2 ####[facility] LABORATORYCLIA [id number] [address] CONSULT PROGon 09-04-2024 CONSULT PROG Normal [facility] PT EDon 09-04-2024 PT ED Normal [facility] THERAPY NTon 09-04-2024 THERAPY NT Normal [facility] XR CHEST 2V FRONTAL/LATon XR CHEST 2V FRONTAL/LAT Normal A [facility] Basic metabolic 2000 panelon 09-03-2024 Anion gap [Moles/Vol] 12 mmol/L Normal 8-15 [facility] Comment on above: Order Comment: Speci men Type: BLOOD SPECIMENOrdering Facility: [facility] Address: [address] [place] [address] Performed By: #### 2 4321-2 ####[facility] LABORATORYCLIA [id number] [address] Calcium [Mass/Vol] 8.8 mg/dL Normal 8.5-10.2 [facility] Comment on above: Order Comment: Speci men Type: BLOOD SPECIMENOrdering Facility: [facility] Address: [address] [place] [address] Performed By: #### 2 4321-2 ####[facility] LABORATORYCLIA [id number] [place] [id number] [place] Chloride [Moles/Vol] 94 mmol/L Low 98-107 [facility] Comment on above: Order Comment: Speci men Type: BLOOD SPECIMENOrdering Facility: [facility] Address: [address] [place] [address] Performed By: #### 2 4321-2 ####[facility] LABORATORYCLIA [id number] [place] [address] [place] CO2 [Moles/Vol] 22 mmol/L Normal 22-30 [facility] Comment on above: Order Comment: Speci men Type: BLOOD SPECIMENOrdering Facility: [facility] Address: [address] [place] [address] Performed By: #### 2 4321-2 ####[facility] LABORATORYCLIA [id number] [address] STATES OF [facility] Creatinine [Mass/Vol] 1.47 mg/dL High 0.73-1.22 [facility] Comment on above: Order Comment: Speci men Type: BLOOD SPECIMENOrdering Facility: [facility] Address: [address] [place] [address] Performed By: #### 2 4321-2 ####[facility] LABORATORYCLIA [id number] [address] Creatinine and Glomerular filtration rate.predicted panel (S/P/Bld) 51 mL/min/1.73m??? Low >=60 [facility] Comment on above: Order Comment: Speci men Type: BLOOD SPECIMENOrdering Facility: [facility] Address: [address] [place] [address] Result Comment: Apple mated Glomerular Filtration Rate [...] actual GFR. Performed By: #### 2 4321-2 ####[facility] LABORATORYCLIA [id number] [place] [address] [place] Glucose [Mass/Vol] 107 mg/dL High 74-99 [facility] Comment on above: Order Comment: Yojana riggins Type: BLOOD SPECIMENOrdering Facility: [facility] Address: [address] [place] [address] Result Comment: The [place] Diabetes Association (ADA) provides guidance for cutoff [...] Standards of Medical Care in Diabetes 2016, [place] [employer]. Diabetes Care. 2016.39(Suppl 1). Performed By: #### 2 4321-2 ####[facility] LABORATORYCLIA [id number] [place] [address] [place] Potassium [Moles/Vol] 4.6 mmol/L Normal 3.7-5.1 [facility] Comment on above: Order Comment: Yojana riggins Type: BLOOD SPECIMENOrdering Facility: [facility] Address: [address] [place] [address] Performed By: #### 2 4321-2 ####[facility] LABORATORYCLIA [id number] [place] [id number] [place] Sodium [Moles/Vol] 128 mmol/L Low 136-144 [facility] Comment on above: Order Comment: Yojana riggins Type: BLOOD SPECIMENOrdering Facility: [facility] Address: [address] [place] [phone] Performed By: #### 2 4321-2 ####[facility] LABORATORYCLIA [id number] [place] [id number] [place] Urea nitrogen [Mass/Vol] 37 mg/dL High 9-24 [facility] Comment on above: Order Comment: Speci men Type: BLOOD SPECIMENOrdering Facility: [facility] Address: [address] [place] [address] Performed By: #### 2 4321-2 ####[facility] LABORATORYCLIA [id number] [place] [id number] [place] CASE MANAGEMon 09-03-2024 CASE MANAGEM Normal [facility] CBC panel Auto (Bld)on 09-03 Erythrocyte distribution width (RBC) [Ratio] 17.7 % High 11.5-15.0 [facility] Comment on above: Order Comment: Speci men Type: BLOOD SPECIMENOrdering Facility: [facility] Address: [address] [place] [address] Performed By: #### 5 8410-2 ####[facility] LABORATORYCLIA [id number] [address] [place] Hematocrit (Bld) [Volume fraction] 23.7 % Low 39.0-51.0 [facility] Comment on above: Order Comment: Speci men Type: BLOOD SPECIMENOrdering Facility: [facility] Address: [address] [place] [address] Performed By: #### 5 8410-2 ####[facility] LABORATORYCLIA [id number] [place] [address] [place] Hemoglobin (Bld) [Mass/Vol] 7.9 g/dL Low 13.0-17.0 [facility] Comment on above: Order Comment: Speci men Type: BLOOD SPECIMENOrdering Facility: [facility] Address: [address] [place] [address] Performed By: #### 5 8410-2 ####[facility] LABORATORYCLIA [id number] [place] [address] [place] MCH (RBC) [Entitic mass] 30.5 pg Normal 26.0-34.0 [facility] Comment on above: Order Comment: Speci men Type: BLOOD SPECIMENOrdering Facility: [facility] Address: [address] [place] [address] Performed By: #### 5 8410-2 ####[facility] LABORATORYCLIA [id number] [address] STATES [facility] MCHC (RBC) [Mass/Vol] 33.3 g/dL Normal 30.5-36.0 [facility] Comment on above: Order Comment: Speci men Type: BLOOD SPECIMENOrdering Facility: [facility] Address: [address] [place] [address] Performed By: #### 5 8410-2 ####[facility] LABORATORYCLIA [id number] [address] [place] MCV (RBC) [Entitic vol] 91.5 fL Normal 80.0-100.0 [facility] Comment on above: Order Comment: Speci men Type: BLOOD SPECIMENOrdering Facility: [facility] Address: [address] [place] [address] Performed By: #### 5 8410-2 ####[facility] LABORATORYCLIA [id number] [address] Nucleated RBC (Bld) [#/Vol] 0.02 10*3/uL High <0.01 [facility] Comment on above: Order Comment: Speci men Type: BLOOD SPECIMENOrdering Facility: [facility] Address: [address] [place] [address] Performed By: #### 5 8410-2 ####[facility] LABORATORYCLIA [id number] [address] [place] Platelet mean volume (Bld) [Entitic vol] 9.1 fL Normal 9.0-12.7 [facility] Comment on above: Order Comment: Speci men Type: BLOOD SPECIMENOrdering Facility: [facility] Address: [address] [place] [address] Performed By: #### 5 8410-2 ####[facility] LABORATORYCLIA [id number] [place] [address] [place] Platelets (Bld) [#/Vol] 174 10*3/uL Normal 150-400 [facility] Comment on above: Order Comment: Speci men Type: BLOOD SPECIMENOrdering Facility: [facility] Address: [address] [place] [address] Performed By: #### 5 8410-2 ####[facility] LABORATORYCLIA [id number] [place] [address] [place] RBC (Bld) [#/Vol] 2.59 10*6/uL Low 4.20-6.00 [facility] Comment on above: Order Comment: Speci men Type: BLOOD SPECIMENOrdering Facility: [facility] Address: [address] [place] [address] Performed By: #### 5 8410-2 ####[facility] LABORATORYCLIA [id number] [address] [place] WBC (Bld) [#/Vol] 14.24 10*3/uL High 3.70-11.00 [facility] Comment on above: Order Comment: Speci men Type: BLOOD SPECIMENOrdering Facility: [facility] Address: [address] [place] [address] Performed By: #### 5 8410-2 ####[facility] LABORATORYCLIA [id number] [address] OF [facility] CONSULT PROGon 09-03-2024 CONSULT PROG Normal [facility] PT EDon 09-03-2024 PT ED Normal [facility] THERAPY NTon 09-03-2024 THERAPY NT Normal [facility] THERAPY NT Normal [facility] XR CHEST 1V FRONTALon 2024 XR CHEST 1V FRONTAL Normal [facility] Basic metabolic 2000 panelon 09-02-2024 Anion gap [Moles/Vol] 7 mmol/L Low 8-15 [facility] Comment on above: Order Comment: Speci men Type: BLOOD SPECIMENOrdering Facility: [facility] Address: [address] [place] [address] Performed By: #### 2 4321-2 ####[facility] LABORATORYCLIA [id number] [place] [address] [place] Calcium [Mass/Vol] 8.6 mg/dL Normal 8.5-10.2 [facility] Comment on above: Order Comment: Speci men Type: BLOOD SPECIMENOrdering Facility: [facility] Address: [address] [place] [address] Performed By: #### 2 4321-2 ####[facility] LABORATORYCLIA [id number] [place] [address] [place] Chloride [Moles/Vol] 98 mmol/L Normal 98-107 [facility] Comment on above: Order Comment: Speci men Type: BLOOD SPECIMENOrdering Facility: [facility] Address: [address] [place] [address] Performed By: #### 2 4321-2 ####[facility] LABORATORYCLIA [id number] [address] [place] CO2 [Moles/Vol] 22 mmol/L Normal 22-30 [facility] Comment on above: Order Comment: Speci men Type: BLOOD SPECIMENOrdering Facility: [facility] Address: [address] [place] [address] Performed By: #### 2 4321-2 ####[facility] LABORATORYCLIA [id number] [place] [address] [place] Creatinine [Mass/Vol] 1.52 mg/dL High 0.73-1.22 [facility] Comment on above: Order Comment: Speci men Type: BLOOD SPECIMENOrdering Facility: [facility] Address: [address] [place] [address] Performed By: #### 2 4321-2 ####[facility] LABORATORYCLIA [id number] [address] [place] Creatinine and Glomerular filtration rate.predicted panel (S/P/Bld) 49 mL/min/1.73m??? Low >=60 [facility] Comment on above: Order Comment: Speci men Type: BLOOD SPECIMENOrdering Facility: [facility] Address: [address] [place] [address] Result Comment: Apple mated Glomerular Filtration Rate [...] actual GFR. Performed By: #### 2 4321-2 ####[facility] LABORATORYCLIA [id number] [place] [address] [place] Glucose [Mass/Vol] 139 mg/dL High 74-99 [facility] Comment on above: Order Comment: Yojana riggins Type: BLOOD SPECIMENOrdering Facility: [facility] Address: [address] [place] [address] Result Comment: The [place] Diabetes Association (ADA) provides guidance for cutoff [...] Standards of Medical Care in Diabetes 2016, [place] [employer]. Diabetes Care. 2016.39(Suppl 1). Performed By: #### 2 4321-2 ####[facility] LABORATORYCLIA [id number] [place] [address] [place] Potassium [Moles/Vol] 4.4 mmol/L Normal 3.7-5.1 [facility] Comment on above: Order Comment: Yojana riggins Type: BLOOD SPECIMENOrdering Facility: [facility] Address: [address] [place] [id number] Performed By: #### 2 4321-2 ####[facility]ORATORYCLIA [id number] [address] [place] Sodium [Moles/Vol] 127 mmol/L Low 136-144 [facility] Comment on above: Order Comment: Speci men Type: BLOOD SPECIMENOrdering Facility: [facility] Address: [address] [place] [address] Performed By: #### 2 4321-2 ####[facility] LABORATORYCLIA [id number] [place] [id number] [place] Urea nitrogen [Mass/Vol] 34 mg/dL High 9-24 [facility] Comment on above: Order Comment: Speci men Type: BLOOD SPECIMENOrdering Facility: [facility] Address: [address] [place] [address] Performed By: #### 2 4321-2 ####[facility] LABORATORYCLIA [id number] [address] STATES OF [facility] CBC panel Auto (Bld)on 09-02 Erythrocyte distribution width (RBC) [Ratio] 17.1 % High 11.5-15.0 [facility] Comment on above: Order Comment: Speci men Type: BLOOD SPECIMENOrdering Facility: [facility] Address: [address] [place] [address] Performed By: #### 5 8410-2 ####[facility] LABORATORYCLIA [id number] [address] [place] Hematocrit (Bld) [Volume fraction] 22.5 % Low 39.0-51.0 [facility] Comment on above: Order Comment: Speci men Type: BLOOD SPECIMENOrdering Facility: [facility] Address: [address] [place] [address] Performed By: #### 5 8410-2 ####[place] [facility] [facility] LABORATORYCLIA [id number] [address] [place] Hemoglobin (Bld) [Mass/Vol] 7.5 g/dL Low 13.0-17.0 [facility] Comment on above: Order Comment: Speci men Type: BLOOD SPECIMENOrdering Facility: [facility] Address: [address] [place] [address] Performed By: #### 5 8410-2 ####[facility] LABORATORYCLIA [id number] [address] MCH (RBC) [Entitic mass] 30.4 pg Normal 26.0-34.0 [facility] Comment on above: Order Comment: Speci men Type: BLOOD SPECIMENOrdering Facility: [facility] Address: [address] [place] [address] Performed By: #### 5 8410-2 ####[facility] LABORATORYCLIA [id number] [address] MCHC (RBC) [Mass/Vol] 33.3 g/dL Normal 30.5-36.0 [facility] Comment on above: Order Comment: Speci men Type: BLOOD SPECIMENOrdering Facility: [facility] Address: [address] [place] [address] Performed By: #### 5 8410-2 ####[facility] LABORATORYCLIA [id number] [address] MCV (RBC) [Entitic vol] 91.1 fL Normal 80.0-100.0 [facility] Comment on above: Order Comment: Speci men Type: BLOOD SPECIMENOrdering Facility: [facility] Address: [address] [place] [address] Performed By: #### 5 8410-2 ####[facility] LABORATORYCLIA [id number] [address] Nucleated RBC (Bld) [#/Vol] 0.02 10*3/uL High <0.01 [facility] Comment on above: Order Comment: Speci men Type: BLOOD SPECIMENOrdering Facility: [facility] Address: [address] [place] [address] Performed By: #### 5 8410-2 ####[facility]ORATORYCLIA [id number] [address] Platelet mean volume (Bld) [Entitic vol] 9.3 fL Normal 9.0-12.7 [facility] Comment on above: Order Comment: Speci men Type: BLOOD SPECIMENOrdering Facility: [facility] Address: [address] [place] [address] Performed By: #### 5 8410-2 ####[facility]ORATORYCLIA [id number] [place] [address] [place] Platelets (Bld) [#/Vol] 163 10*3/uL Normal 150-400 [facility] Comment on above: Order Comment: Speci men Type: BLOOD SPECIMENOrdering Facility: [facility] Address: [address] [place] [address] Result Comment: No c lot detected. Performed By: #### 5 8410-2 ####[facility]ORATORYCLIA [id number] [place] [address] [place] RBC (Bld) [#/Vol] 2.47 10*6/uL Low 4.20-6.00 [facility] Comment on above: Order Comment: Speci men Type: BLOOD SPECIMENOrdering Facility: [facility] Address: [address] [place] [address] Performed By: #### 5 8410-2 ####[facility]ORATORYCLIA [id number] [address] [place] WBC (Bld) [#/Vol] 15.49 10*3/uL High 3.70-11.00 [facility] Comment on above: Order Comment: Speci men Type: BLOOD SPECIMENOrdering Facility: [facility] Address: [address] [place] [address] Performed By: #### 5 8410-2 ####[facility] LABORATORYCLIA [id number] [address] OF [facility] CONSULT PROGon 09-02-2024 CONSULT PROG Normal [facility] THERAPY NTon 09-02-2024 THERAPY NT Normal [facility] XR CHEST 1V FRONTALon 2024 XR CHEST 1V FRONTAL Normal [facility] Basic metabolic 2000 panelon 09-01-2024 Anion gap [Moles/Vol] 9 mmol/L Normal 8-15 [facility] Comment on above: Order Comment: Speci men Type: BLOOD SPECIMENOrdering Facility: [facility] Address: [address] [place] [address] Performed By: #### 2 4321-2 ####[facility] LABORATORYCLIA [id number] [place] [address] [place] Calcium [Mass/Vol] 8.8 mg/dL Normal 8.5-10.2 [facility] Comment on above: Order Comment: Speci men Type: BLOOD SPECIMENOrdering Facility: [facility] Address: [address] [place] [address] Performed By: #### 2 4321-2 ####[facility]ORATORYCLIA [id number] [place] [address] [place] Chloride [Moles/Vol] 96 mmol/L Low 98-107 [facility] Comment on above: Order Comment: Speci men Type: BLOOD SPECIMENOrdering Facility: [facility] Address: [address] [place] [address] Performed By: #### 2 4321-2 ####[facility]ORATORYCLIA [id number] [place] [address] [place] CO2 [Moles/Vol] 22 mmol/L Normal 22-30 [facility] Comment on above: Order Comment: Speci men Type: BLOOD SPECIMENOrdering Facility: [facility] Address: [address] [place] [address] Performed By: #### 2 4321-2 ####[facility]ORATORYCLIA [id number] [place] [address] [place] Creatinine [Mass/Vol] 1.56 mg/dL High 0.73-1.22 [facility] Comment on above: Order Comment: Speci men Type: BLOOD SPECIMENOrdering Facility: [facility] Address: [address] [place] [address] Performed By: #### 2 4321-2 ####[facility]ORATORYCLIA [id number] [place] [address] [place] Creatinine and Glomerular filtration rate.predicted panel (S/P/Bld) 48 mL/min/1.73m??? Low >=60 [facility] Comment on above: Order Comment: Yojana riggins Type: BLOOD SPECIMENOrdering Facility: [facility] Address: [address] [place] [address] Result Comment: Apple mated Glomerular Filtration Rate [...] actual GFR. Performed By: #### 2 4321-2 ####[facility]ORATORYCLIA [id number] [place] [address] [place] Glucose [Mass/Vol] 197 mg/dL High 74-99 [facility] Comment on above: Order Comment: Yojana riggins Type: BLOOD SPECIMENOrdering Facility: [facility] Address: [address] [place] [address] Result Comment: The [place] Diabetes Association (ADA) provides guidance for cutoff [...] Standards of Medical Care in Diabetes 2016, [place] [employer]. Diabetes Care. 2016.39(Suppl 1). Performed By: #### 2 4321-2 ####[facility]ORATORYCLIA [id number] [place] [id number] [place] Potassium [Moles/Vol] 4.9 mmol/L Normal 3.7-5.1 [facility] Comment on above: Order Comment: Speci men Type: BLOOD SPECIMENOrdering Facility: [facility] Address: [address] [place] [address] Performed By: #### 2 4321-2 ####[facility] LABORATORYCLIA [id number] [place] [address] [place] Sodium [Moles/Vol] 127 mmol/L Low 136-144 [facility] Comment on above: Order Comment: Speci men Type: BLOOD SPECIMENOrdering Facility: [facility] Address: [address] [place] [address] Performed By: #### 2 4321-2 ####[facility]ORATORYCLIA [id number] [place] [address] [place] Urea nitrogen [Mass/Vol] 29 mg/dL High 9-24 [facility] Comment on above: Order Comment: Speci men Type: BLOOD SPECIMENOrdering Facility: [facility] Address: [address] [place] [address] Performed By: #### 2 1-2 ####[facility]ORATORYCLIA [id number] [place] [address] [place] Anion gap [Moles/Vol] 9 mmol/L Normal 8-15 [facility] Comment on above: Order Comment: Speci men Type: BLOOD SPECIMENOrdering Facility: [facility] Address: [address] [place] [address] Performed By: #### 2 4321-2, ####[facility]ORATORYCLIA [id number] [place] [address] [place] Calcium [Mass/Vol] 8.4 mg/dL Low 8.5-10.2 [facility] Comment on above: Order Comment: Speci men Type: BLOOD SPECIMENOrdering Facility: [facility] Address: [address] [place] [address] Performed By: #### 2 4321-2, ####[facility]ORATORYCLIA [id number] [place] [address] [place] Chloride [Moles/Vol] 97 mmol/L Low 98-107 [facility] Comment on above: Order Comment: Speci men Type: BLOOD SPECIMENOrdering Facility: [facility] Address: [facility] [place] [address] Performed By: #### 2 2, ####[facility]ORATORYCLIA [id number] [address] CO2 [Moles/Vol] 21 mmol/L Low 22-30 [facility] Comment on above: Order Comment: Speci men Type: BLOOD SPECIMENOrdering Facility: [facility] Address: [address] [place] [address] Performed By: #### 2 4320-05, ####[facility]ORATORYCLIA [id number] [address] [place] OF [facility] Creatinine [Mass/Vol] 1.57 mg/dL High 0.73-1.22 [facility] Comment on above: Order Comment: Speci men Type: BLOOD SPECIMENOrdering Facility: [facility] Address: [address] [place] [address] Performed By: #### 2 4320-05, ####[facility]ORATORYCLIA [id number] [address] Creatinine and Glomerular filtration rate.predicted panel (S/P/Bld) 47 mL/min/1.73m??? Low >=60 [facility] Comment on above: Order Comment: Speci men Type: BLOOD SPECIMENOrdering Facility: [facility] Address: [address] [place] [address] Result Comment: Apple mated Glomerular Filtration Rate [...] actual GFR. Performed By: #### 2 4320-05, ####[facility]ORATORYCLIA [id number] [place] [address] [place] Glucose [Mass/Vol] 192 mg/dL High 74-99 [facility] Comment on above: Order Comment: Yojana riggins Type: BLOOD SPECIMENOrdering Facility: [facility] Address: [address] [place] [address] Result Comment: The [place] Diabetes Association (ADA) provides guidance for cutoff [...] Standards of Medical Care in Diabetes 2016, [place] [employer]. Diabetes Care. 2016.39(Suppl 1). Performed By: #### 2 43204-11, ####[facility]ATORYCLIA [id number] [place] [address] [place] Potassium [Moles/Vol] 5.2 mmol/L High 3.7-5.1 [facility] Comment on above: Order Comment: Yojana riggins Type: BLOOD SPECIMENOrdering Facility: [facility] Address: [address] [place] [address] Performed By: #### 2 ####[facility]ORATORYCLIA [id number] [place] [id number] [place] Sodium [Moles/Vol] 127 mmol/L Low 136-144 [facility] Comment on above: Order Comment: Yojana riggins Type: BLOOD SPECIMENOrdering Facility: [facility] Address: [address] [place], [place] [id number] Performed By: #### 2 432 ####[facility]ORATORYCLIA [id number] [place] [address] [place] Urea nitrogen [Mass/Vol] 26 mg/dL High 9-24 [facility] Comment on above: Order Comment: Speci men Type: BLOOD SPECIMENOrdering Facility: [facility] Address: [address] [place] [address] Performed By: #### 2 4321-2, 13900-0 ####[facility]ORATORYCLIA [id number] [place] [address] [place] CBC panel Auto (Bld)on 09-01 Erythrocyte distribution width (RBC) [Ratio] 16.7 % High 11.5-15.0 [facility] Comment on above: Order Comment: Speci men Type: BLOOD SPECIMENOrdering Facility: [facility] Address: [address] [place] [address] Performed By: #### 5 8410-2 ####[facility]ORATORYCLIA [id number] [address] [place] Hematocrit (Bld) [Volume fraction] 19.7 % Low 39.0-51.0 [facility] Comment on above: Order Comment: Speci men Type: BLOOD SPECIMENOrdering Facility: [facility] Address: [address] [place] [address] Performed By: #### 5 8410-2 ####[facility]ORATORYCLIA [id number] [address] [place] Hemoglobin (Bld) [Mass/Vol] 6.7 g/dL Low 13.0-17.0 [facility] Comment on above: Order Comment: Speci men Type: BLOOD SPECIMENOrdering Facility: [facility] Address: [address] [place] [address] Performed By: #### 5 8410-2 ####[facility]ORATORYCLIA [id number] [address] [place] MCH (RBC) [Entitic mass] 30.6 pg Normal 26.0-34.0 [facility] Comment on above: Order Comment: Speci men Type: BLOOD SPECIMENOrdering Facility: [facility] Address: [address] [place] [address] Performed By: #### 5 8410-2 ####[facility]ORATORYCLIA [id number] [address] MCHC (RBC) [Mass/Vol] 34.0 g/dL Normal 30.5-36.0 [facility] Comment on above: Order Comment: Speci men Type: BLOOD SPECIMENOrdering Facility: [facility] Address: [address] [place] [address] Performed By: #### 5 8410-2 ####[facility]ORATORYCLIA [id number] [address] [place] MCV (RBC) [Entitic vol] 90.0 fL Normal 80.0-100.0 [facility] Comment on above: Order Comment: Speci men Type: BLOOD SPECIMENOrdering Facility: [facility] Address: [address] [place] [address] Performed By: #### 5 8410-2 ####[facility]ORATORYCLIA [id number] [address] OF [facility] Nucleated RBC (Bld) [#/Vol] 10*3/uL Normal <0.01 [facility] Comment on above: Order Comment: Speci men Type: BLOOD SPECIMENOrdering Facility: [facility] Address: [address] [place] [address] Performed By: #### 5 8410-2 ####[facility]ORATORYCLIA [id number] [address] Platelet mean volume (Bld) [Entitic vol] 9.3 fL Normal 9.0-12.7 [facility] Comment on above: Order Comment: Speci men Type: BLOOD SPECIMENOrdering Facility: [facility] Address: [address] [place] [address] Performed By: #### 5 8410-2 ####[facility]ORATORYCLIA [id number] [address] [place] Platelets (Bld) [#/Vol] 141 10*3/uL Low 150-400 [facility] Comment on above: Order Comment: Speci men Type: BLOOD SPECIMENOrdering Facility: [facility] Address: [address] [place] [address] Result Comment: No c lot detected. Performed By: #### 5 8410-2 ####[facility]ORATORYCLIA [id number] [address] [place] OF [facility] RBC (Bld) [#/Vol] 2.19 10*6/uL Low 4.20-6.00 [facility] Comment on above: Order Comment: Speci men Type: BLOOD SPECIMENOrdering Facility: [facility] Address: [address] [place] [address] Performed By: #### 5 8410-2 ####[facility]ORATORYCLIA [id number] [address] [place] WBC (Bld) [#/Vol] 16.19 10*3/uL High 3.70-11.00 [facility] Comment on above: Order Comment: Speci men Type: BLOOD SPECIMENOrdering Facility: [facility] Address: [address] [place] [address] Performed By: #### 5 8410-2 ####[facility]ORATORYCLIA [id number] [address] Erythrocyte distribution width (RBC) [Ratio] 16.3 % High 11.5-15.0 [facility] Comment on above: Order Comment: Speci men Type: BLOOD SPECIMENOrdering Facility: [facility] Address: [address] [place] [address] Performed By: #### 5 8410-2 ####[facility]ORATORYCLIA [id number] [address] Hematocrit (Bld) [Volume fraction] 17.2 % Low 39.0-51.0 [facility] Comment on above: Order Comment: Speci men Type: BLOOD SPECIMENOrdering Facility: [facility] Address: [address] [place] [address] Performed By: #### 5 8410-2 ####[facility]ORATORYCLIA [id number] [address] OF [facility] Hemoglobin (Bld) [Mass/Vol] 5.8 g/dL Critically low 13.0-17.0 [facility] Comment on above: Order Comment: Speci men Type: BLOOD SPECIMENOrdering Facility: [facility] Address: [address] [place] [address] Performed By: #### 5 8410-2 ####[facility]ORATORYCLIA [id number] [address] MCH (RBC) [Entitic mass] 31.7 pg Normal 26.0-34.0 [facility] Comment on above: Order Comment: Speci men Type: BLOOD SPECIMENOrdering Facility: [facility] Address: [address] [place] [address] Performed By: #### 5 8410-2 ####[facility]ORATORYCLIA [id number] [address] MCHC (RBC) [Mass/Vol] 33.7 g/dL Normal 30.5-36.0 [facility] Comment on above: Order Comment: Speci men Type: BLOOD SPECIMENOrdering Facility: [facility] Address: [address] [place] [address] Performed By: #### 5 8410-2 ####[facility]ORATORYCLIA [id number] [address] MCV (RBC) [Entitic vol] 94.0 fL Normal 80.0-100.0 [facility] Comment on above: Order Comment: Speci men Type: BLOOD SPECIMENOrdering Facility: [facility] Address: [address] [place] [address] Performed By: #### 5 8410-2 ####[facility]ORATORYCLIA [id number] [address] Nucleated RBC (Bld) [#/Vol] 10*3/uL Normal <0.01 [facility] Comment on above: Order Comment: Speci men Type: BLOOD SPECIMENOrdering Facility: [facility] Address: [address] [place] [address] Performed By: #### 5 8410-2 ####[facility]ORATORYCLIA [id number] [address] Platelet mean volume (Bld) [Entitic vol] 9.3 fL Normal 9.0-12.7 [facility] Comment on above: Order Comment: Speci men Type: BLOOD SPECIMENOrdering Facility: [facility] Address: [address] [place] [address] Performed By: #### 5 8410-2 ####[facility]ORATORYCLIA [id number] [address] [place] Platelets (Bld) [#/Vol] 129 10*3/uL Low 150-400 [facility] Comment on above: Order Comment: Speci men Type: BLOOD SPECIMENOrdering Facility: [facility] Address: [address] [place] [address] Result Comment: No c lot detected. Performed By: #### 5 8410-2 ####[facility]ORATORYCLIA [id number] [address] [place] RBC (Bld) [#/Vol] 1.83 10*6/uL Low 4.20-6.00 [facility] Comment on above: Order Comment: Speci men Type: BLOOD SPECIMENOrdering Facility: [facility] Address: [address] [place] [address] Performed By: #### 5 8410-2 ####[facility]ORATORYCLIA [id number] [address] [place] WBC (Bld) [#/Vol] 14.31 10*3/uL High 3.70-11.00 [facility] Comment on above: Order Comment: Speci men Type: BLOOD SPECIMENOrdering Facility: [facility] Address: [address] [place] [address] Performed By: #### 5 8410-2 ####[facility] LABORATORYCLIA [id number] [place] CONSULT PROGon 09-01-2024 CONSULT PROG Normal [facility] CONSULT PROG Normal [facility] Hgb Bld-mCncon 09-01-2024 Hemoglobin (Bld) [Mass/Vol] 7.7 g/dL Low 13.0-17.0 [facility] Comment on above: Order Comment: Speci men Type: BLOOD SPECIMENOrdering Facility: [facility] Address: [address] [place] [address] Performed By: #### 7 18-7 ####[facility]ORATORYCLIA [id number] [address] [place] Magnesium SerPl-mCncon 09-01 Magnesium [Mass/Vol] 1.8 mg/dL Normal 1.7-2.3 [facility] Comment on above: Order Comment: Speci men Type: BLOOD SPECIMENOrdering Facility: [facility] Address: [address] [place] [address] Performed By: #### 2 4321-2, 17773-8 ####[facility]ORATORYCLIA [id number] [address] [place] XR CHEST 1V FRONTALon 2024 XR CHEST 1V FRONTAL Normal [facility] ARTERIAL BLOOD GASESon 08-31 Base deficit (BldA) [Moles/Vol] -3 mmol/L Low -2-0 [facility] Comment on above: Order Comment: Speci men Type: ARTERIAL BLOOD SPECIMENOrdering Facility: [facility] Address: [address] [place] [address] Performed By: #### A LLBG ####[facility] LABORATORYCLIA [id number] [address] [place] Body temperature 99.68 [degF] Normal [facility] Comment on above: Order Comment: Speci men Type: ARTERIAL BLOOD SPECIMENOrdering Facility: [facility] Address: [address] [place] [address] Performed By: #### A LLBG ####[facility] LABORATORYCLIA [id number] [address] [place] OF [facility] Calcium.ionized (BldV) [Mass/Vol] 1.23 mmol/L Normal 1.08-1.30 [facility] Comment on above: Order Comment: Speci men Type: ARTERIAL BLOOD SPECIMENOrdering Facility: [facility] Address: [address] [place] [address] Performed By: #### A LLBG ####[facility] LABORATORYCLIA [id number] [address] Calcium.ionized adjusted to pH 7.4 (BldA) [Moles/Vol] 1.24 mmol/L Normal 1.08-1.30 [facility] Comment on above: Order Comment: Speci men Type: ARTERIAL BLOOD SPECIMENOrdering Facility: [facility] Address: [address] [place] [address] Performed By: #### A LLBG ####[facility] LABORATORYCLIA [id number] [address] OF [facility] Carboxyhemoglobin (BldA) [Mass fraction] 1.9 % Normal 0.0-2.0 [facility] Comment on above: Order Comment: Speci men Type: ARTERIAL BLOOD SPECIMENOrdering Facility: [facility] Address: [address] [place] [address] Result Comment: Carb oxyhemoglobin Reference Range for Smokers: 2.0-8.0% Performed By: #### A LLBG ####[facility] LABORATORYCLIA [id number] [address] [place] Chloride [Moles/Vol] 104 mmol/L Normal 97-105 [facility] Comment on above: Order Comment: Speci men Type: ARTERIAL BLOOD SPECIMENOrdering Facility: [facility] Address: [address] [place] [address] Performed By: #### A LLBG ####[facility] LABORATORYCLIA [id number] [address] [place] CO2 (Bld) [Partial pressure] 34 mm Hg Low 36-46 [facility] Comment on above: Order Comment: Speci men Type: ARTERIAL BLOOD SPECIMENOrdering Facility: [facility] Address: [address] [place] [address] Performed By: #### A LLBG ####[facility]ATORYCLIA [id number] [address] CO2 adjusted to patient's actual temperature (Bld) [Partial pressure] 35 mmHg Low 36-46 [facility] Comment on above: Order Comment: Speci men Type: ARTERIAL BLOOD SPECIMENOrdering Facility: [facility] Address: [address] [place] [address] Performed By: #### A LLBG ####[facility] LABORATORYCLIA [id number] [address] Glucose [Mass/Vol] 109 mg/dL High 60-105 [facility] Comment on above: Order Comment: Speci men Type: ARTERIAL BLOOD SPECIMENOrdering Facility: [facility] Address: [address] [place] [address] Performed By: #### A LLBG ####[facility] LABORATORYCLIA [id number] [address] [place] HCO3 (Bld) [Moles/Vol] 21 mmol/L Low 22-26 [facility] Comment on above: Order Comment: Speci men Type: ARTERIAL BLOOD SPECIMENOrdering Facility: [facility] Address: [address] [place] [address] Performed By: #### A LLBG ####[facility]ATORYCLIA [id number] [address] Hematocrit (Bld) [Volume fraction] 25.0 % Low 39.0-51.0 [facility] Comment on above: Order Comment: Speci men Type: ARTERIAL BLOOD SPECIMENOrdering Facility: [facility] Address: [address] [place] [address] Performed By: #### A LLBG ####[facility]ATORYCLIA [id number] [address] [place] Lactate [Moles/Vol] 1.4 mmol/L Normal 0.5-2.2 [facility] Comment on above: Order Comment: Speci men Type: ARTERIAL BLOOD SPECIMENOrdering Facility: [facility] Address: [address] [place] [address] Performed By: #### A LLBG ####[facility]ORATORYCLIA [id number] [address] [place] 2 Liters/min Normal [facility] Comment on above: Order Comment: Speci men Type: ARTERIAL BLOOD SPECIMENOrdering Facility: [facility] Address: [address] [place] [address] Performed By: #### A LLBG ####[facility]ATORYCLIA [id number] [address] [place] Methemoglobin (Bld) [Mass fraction] 0.5 % Normal 0.0-1.5 [facility] Comment on above: Order Comment: Speci men Type: ARTERIAL BLOOD SPECIMENOrdering Facility: [facility] Address: [address] [place] [address] Performed By: #### A LLBG ####[facility]ATORYCLIA [id number] [address] O2 THERAPY [place] = Nasal Cannula Normal [facility] Comment on above: Order Comment: Speci men Type: ARTERIAL BLOOD SPECIMENOrdering Facility: [facility] Address: [address] [place] [address] Performed By: #### A LLBG ####[facility]ATORYCLIA [id number] [address] [place] Oxygen (Bld) [Partial pressure] 93 mm Hg Normal 85-95 [facility] Comment on above: Order Comment: Speci men Type: ARTERIAL BLOOD SPECIMENOrdering Facility: [facility] Address: [address] [place] [address] Performed By: #### A LLBG ####[facility]ATORYCLIA [id number] [address] [place] Oxygen adjusted to patient's actual temperature (Bld) [Partial pressure] 96 mmHg High 85-95 [facility] Comment on above: Order Comment: Speci men Type: ARTERIAL BLOOD SPECIMENOrdering Facility: [facility] Address: [address] [place] [address] Performed By: #### A LLBG ####[facility] LABORATORYCLIA [id number] [address] [place] Oxyhemoglobin (BldA) [Mass fraction] 95 % Normal 95-98 [facility] Comment on above: Order Comment: Speci men Type: ARTERIAL BLOOD SPECIMENOrdering Facility: [facility] Address: [address] [place] [address] Performed By: #### A LLBG ####[facility] LABORATORYCLIA [id number] [place] [address] [place] pH (Bld) 7.41 [pH] Normal 7.35-7.45 [facility] Comment on above: Order Comment: Speci men Type: ARTERIAL BLOOD SPECIMENOrdering Facility: [facility] Address: [address] [place] [address] Performed By: #### A LLBG ####[facility] LABORATORYCLIA [id number] [address] STATES [facility] pH adjusted to patient's actual temperature (Bld) 7.40 Normal 7.35-7.45 [facility] Comment on above: Order Comment: Speci men Type: ARTERIAL BLOOD SPECIMENOrdering Facility: [facility] Address: [address] [place] [address] Performed By: #### A LLBG ####[facility] LABORATORYCLIA [id number] [place] [address] [place] Potassium [Moles/Vol] 5.5 mmol/L High 3.5-5.0 [facility] Comment on above: Order Comment: Speci men Type: ARTERIAL BLOOD SPECIMENOrdering Facility: [facility] Address: [address] [place] [address] Performed By: #### A LLBG ####[facility] LABORATORYCLIA [id number] [place] [address] [place] Sodium [Moles/Vol] 131 mmol/L Low 136-144 [facility] Comment on above: Order Comment: Speci men Type: ARTERIAL BLOOD SPECIMENOrdering Facility: [facility] Address: [address] [place] [address] Performed By: #### A LLBG ####[facility]ORATORYCLIA [id number] [place] [address] [place] Basic metabolic 2000 panelon 08-31-2024 Anion gap [Moles/Vol] 6 mmol/L Low 8-15 [facility] Comment on above: Order Comment: Speci men Type: BLOOD SPECIMENOrdering Facility: [facility] Address: [address] [place] [address] Performed By: #### 2 4321-2 ####[facility] LABORATORYCLIA [id number] [place] [address] [place] Calcium [Mass/Vol] 8.3 mg/dL Low 8.5-10.2 [facility] Comment on above: Order Comment: Speci men Type: BLOOD SPECIMENOrdering Facility: [facility] Address: [address] [place] [address] Performed By: #### 2 4321-2 ####[facility] LABORATORYCLIA [id number] [place] [address] [place] Chloride [Moles/Vol] 100 mmol/L Normal 98-107 [facility] Comment on above: Order Comment: Speci men Type: BLOOD SPECIMENOrdering Facility: [facility] Address: [address] [place] [address] Performed By: #### 2 4321-2 ####[facility]ORATORYCLIA [id number] [place] [address] [place] CO2 [Moles/Vol] 23 mmol/L Normal 22-30 [facility] Comment on above: Order Comment: Speci men Type: BLOOD SPECIMENOrdering Facility: [facility] Address: [address] [place] [address] Performed By: #### 2 4321-2 ####[facility]ORATORYCLIA [id number] [place] [address] [place] Creatinine [Mass/Vol] 1.45 mg/dL High 0.73-1.22 [facility] Comment on above: Order Comment: Yojana riggins Type: BLOOD SPECIMENOrdering Facility: [facility] Address: [address] [place] [address] Performed By: #### 2 4321-2 ####[facility]OSPITALIA [id number] [address] Creatinine and Glomerular filtration rate.predicted panel (S/P/Bld) 52 mL/min/1.73m??? Low >=60 [facility] Comment on above: Order Comment: Yojana riggins Type: BLOOD SPECIMENOrdering Facility: [facility] Address: [address] [place] [address] Result Comment: Apple mated Glomerular Filtration Rate [...] actual GFR. Performed By: #### 2 4321-2 ####[facility]OSPITALIA [id number] [address] [place] Glucose [Mass/Vol] 99 mg/dL Normal 74-99 [facility] Comment on above: Order Comment: Yojana riggins Type: BLOOD SPECIMENOrdering Facility: [facility] Address: [address] [place] [address] Result Comment: The [place] Diabetes Association (ADA) provides guidance for cutoff [...] Standards of Medical Care in Diabetes 2016, [place] [employer]. Diabetes Care. 2016.39(Suppl 1). Performed By: #### 2 4321-2 ####[facility] LABORATORYCLIA [id number] [place] [address] [place] Potassium [Moles/Vol] 5.0 mmol/L Normal 3.7-5.1 [facility] Comment on above: Order Comment: Speci men Type: BLOOD SPECIMENOrdering Facility: [facility] Address: [address] [place] [address] Performed By: #### 2 4321-2 ####[facility] LABORATORYCLIA [id number] [address] [place] Sodium [Moles/Vol] 129 mmol/L Low 136-144 [facility] Comment on above: Order Comment: Speci men Type: BLOOD SPECIMENOrdering Facility: [facility] Address: [address] [place] [address] Performed By: #### 2 4321-2 ####[facility] LABORATORYCLIA [id number] [place] [address] [place] Urea nitrogen [Mass/Vol] 18 mg/dL Normal 9-24 [facility] Comment on above: Order Comment: Speci men Type: BLOOD SPECIMENOrdering Facility: [facility] Address: [address] [place] [address] Performed By: #### 2 4321-2 ####[facility] LABORATORYCLIA [id number] [address] [place] Anion gap [Moles/Vol] 7 mmol/L Low 8-15 [facility] Comment on above: Order Comment: Speci men Type: BLOOD SPECIMENOrdering Facility: [facility] Address: [address] [place] [address] Performed By: #### 2 4321-2 ####[facility] LABORATORYCLIA [id number] [place] [address] [place] Calcium [Mass/Vol] 8.4 mg/dL Low 8.5-10.2 [facility] Comment on above: Order Comment: Speci men Type: BLOOD SPECIMENOrdering Facility: [facility] Address: [address] [place] [address] Performed By: #### 2 4321-2 ####[facility] LABORATORYCLIA [id number] [place] [address] [place] Chloride [Moles/Vol] 102 mmol/L Normal 98-107 [facility] Comment on above: Order Comment: Speci men Type: BLOOD SPECIMENOrdering Facility: [facility] Address: [address] [place] [address] Performed By: #### 2 4321-2 ####[facility] LABORATORYCLIA [id number] [address] [place] CO2 [Moles/Vol] 23 mmol/L Normal 22-30 [facility] Comment on above: Order Comment: Speci men Type: BLOOD SPECIMENOrdering Facility: [facility] Address: [address] [place] [address] Performed By: #### 2 4321-2 ####[facility] LABORATORYCLIA [id number] [place] [address] [place] Creatinine [Mass/Vol] 1.31 mg/dL High 0.73-1.22 [facility] Comment on above: Order Comment: Speci men Type: BLOOD SPECIMENOrdering Facility: [facility] Address: [address] [place] [address] Performed By: #### 2 4321-2 ####[facility] LABORATORYCLIA [id number] [address] Creatinine and Glomerular filtration rate.predicted panel (S/P/Bld) 59 mL/min/1.73m??? Low >=60 [facility] Comment on above: Order Comment: Speci men Type: BLOOD SPECIMENOrdering Facility: [facility] Address: [address] [place] [address] Result Comment: Apple mated Glomerular Filtration Rate [...] actual GFR. Performed By: #### 2 4321-2 ####[facility] LABORATORYCLIA [id number] [place] [address] [place] Glucose [Mass/Vol] 117 mg/dL High 74-99 [facility] Comment on above: Order Comment: Speci men Type: BLOOD SPECIMENOrdering Facility: [facility] Address: [address] [place] [address] Result Comment: The [place] Diabetes Association (ADA) provides guidance for cutoff [...] Standards of Medical Care in Diabetes 2016, [place] [employer]. Diabetes Care. 2016.39(Suppl 1). Performed By: #### 2 4321-2 ####[facility] LABORATORYCLIA [id number] [place] [address] [place] Potassium [Moles/Vol] 5.2 mmol/L High 3.7-5.1 [facility] Comment on above: Order Comment: Speci men Type: BLOOD SPECIMENOrdering Facility: [facility] Address: [address] [id number] Performed By: #### 2 4321-2 ####[facility] LABORATORYCLIA [id number] [place] [address] [place] Sodium [Moles/Vol] 132 mmol/L Low 136-144 [facility] Comment on above: Order Comment: Speci men Type: BLOOD SPECIMENOrdering Facility: [facility] Address: [address] [place] [address] Performed By: #### 2 4321-2 ####[facility]ORATORYCLIA [id number] [place] [address] [place] Urea nitrogen [Mass/Vol] 17 mg/dL Normal 9-24 [facility] Comment on above: Order Comment: Speci men Type: BLOOD SPECIMENOrdering Facility: [facility] Address: [address] [place] [address] Performed By: #### 2 4321-2 ####[facility]ORATORYCLIA [id number] [place] [address] [place] Anion gap [Moles/Vol] 8 mmol/L Normal 8-15 [facility] Comment on above: Order Comment: Speci men Type: BLOOD SPECIMENOrdering Facility: [facility] Address: [address] [place] [address] Performed By: #### 2 4320-2, ####[facility] LABORATORYCLIA [id number] [place] [address] [place] Calcium [Mass/Vol] 8.3 mg/dL Low 8.5-10.2 [facility] Comment on above: Order Comment: Speci men Type: BLOOD SPECIMENOrdering Facility: [facility] Address: [address] [place] [address] Performed By: #### 2 4321-2, ####[facility]ATORYCLIA [id number] [place] [address] [place] Chloride [Moles/Vol] 102 mmol/L Normal 98-107 [facility] Comment on above: Order Comment: Speci men Type: BLOOD SPECIMENOrdering Facility: [facility] Address: [address] [place] [address] Performed By: #### 2 4321-2, ####[facility] LABORATORYCLIA [id number] [place] [address] [place] CO2 [Moles/Vol] 20 mmol/L Low 22-30 [facility] Comment on above: Order Comment: Speci men Type: BLOOD SPECIMENOrdering Facility: [facility] Address: [address] [place] [address] Performed By: #### 2 4321-, ####[facility] LABORATORYCLIA [id number] [place] [address] [place] Creatinine [Mass/Vol] 1.20 mg/dL Normal 0.73-1.22 [facility] Comment on above: Order Comment: Speci men Type: BLOOD SPECIMENOrdering Facility: [facility] Address: [address] [place] [address] Performed By: #### 2 43204-11, ####[facility]GCL[facility] [id number] [address] Creatinine and Glomerular filtration rate.predicted panel (S/P/Bld) 65 mL/min/1.73m??? Normal >=60 [facility] Comment on above: Order Comment: Speci men Type: BLOOD SPECIMENOrdering Facility: [facility] Address: [address] [place] [address] Result Comment: Apple mated Glomerular Filtration Rate [...] actual GFR. Performed By: #### 2 4321-2, ####[facility] LABORATORYCLIA [id number] [place] [id number] [place] Glucose [Mass/Vol] 101 mg/dL High 74-99 [facility] Comment on above: Order Comment: Speci gilson Type: BLOOD SPECIMENOrdering Facility: [facility] Address: [address] [place] [address] Result Comment: The [place] Diabetes Association (ADA) provides guidance for cutoff [...] Standards of Medical Care in Diabetes 2016, [place] [employer]. Diabetes Care. 2016.39(Suppl 1). Performed By: #### 2 4320-05, ####[facility]ORATORYCLIA [id number] [place] [address] [place] Potassium [Moles/Vol] 5.6 mmol/L High 3.7-5.1 [facility] Comment on above: Order Comment: Yojana riggins Type: BLOOD SPECIMENOrdering Facility: [facility] Address: [address] [place] [address] Performed By: #### 2 ####[facility] LABORATORYCLIA [id number] [place] [address] [place] Sodium [Moles/Vol] 130 mmol/L Low 136-144 [facility] Comment on above: Order Comment: Yojana riggins Type: BLOOD SPECIMENOrdering Facility: [facility] Address: [address] [place] [address] Performed By: #### 2 ####[facility]ORATORYCLIA [id number] [address] [place] Urea nitrogen [Mass/Vol] 16 mg/dL Normal 9-24 [facility] Comment on above: Order Comment: Yojana riggins Type: BLOOD SPECIMENOrdering Facility: [facility] Address: [address] [place] [address] Performed By: #### 2 ####[facility] LABORATORYCLIA [id number] [place] [address] [place] CBC Pnl Bld Autoon 05-24-202 5 Hemoglobin (Bld) [Mass/Vol] 8.0 g/dL Low 13.0-17.0 [facility] Comment on above: Order Comment: Speci men Type: BLOOD SPECIMENOrdering Facility: [facility] Address: [address] [place] [address] Performed By: #### 5 8410-2 ####[facility]ORATORYCLIA [id number] [address] Order Comment: Speci men Type: ARTERIAL BLOOD SPECIMENOrdering Facility: [facility] Address: [address] [place] [address] Performed By: #### A LLBG ####[facility]ORATORYCLIA [id number] [address] CBC panel Auto (Bld)on 08-31 Erythrocyte distribution width (RBC) [Ratio] 14.8 % Normal 11.5-15.0 [facility] Comment on above: Order Comment: Speci men Type: BLOOD SPECIMENOrdering Facility: [facility] Address: [address] [place] [address] Performed By: #### 5 8410-2 ####[facility]ORATORYCLIA [id number] [address] Hematocrit (Bld) [Volume fraction] 22.9 % Low 39.0-51.0 [facility] Comment on above: Order Comment: Speci men Type: BLOOD SPECIMENOrdering Facility: [facility] Address: [address] [place] [address] Performed By: #### 5 8410-2 ####[facility]ORATORYCLIA [id number] [address] MCH (RBC) [Entitic mass] 31.0 pg Normal 26.0-34.0 [facility] Comment on above: Order Comment: Speci men Type: BLOOD SPECIMENOrdering Facility: [facility] Address: [address] [place] [address] Performed By: #### 5 8410-2 ####[facility] LABORATORYCLIA [id number] [address] STATES OF [facility] MCHC (RBC) [Mass/Vol] 34.9 g/dL Normal 30.5-36.0 [facility] Comment on above: Order Comment: Speci men Type: BLOOD SPECIMENOrdering Facility: [facility] Address: [address] [place] [address] Performed By: #### 5 8410-2 ####[facility]ORATORYCLIA [id number] [address] MCV (RBC) [Entitic vol] 88.8 fL Normal 80.0-100.0 [facility] Comment on above: Order Comment: Speci men Type: BLOOD SPECIMENOrdering Facility: [facility] Address: [address] [place] [address] Performed By: #### 5 8410-2 ####[facility]ORATORYCLIA [id number] [address] Nucleated RBC (Bld) [#/Vol] 10*3/uL Normal <0.01 [facility] Comment on above: Order Comment: Speci men Type: BLOOD SPECIMENOrdering Facility: [facility] Address: [address] [place] [address] Performed By: #### 5 8410-2 ####[facility]ORATORYCLIA [id number] [address] [place] Platelet mean volume (Bld) [Entitic vol] 8.8 fL Low 9.0-12.7 [facility] Comment on above: Order Comment: Speci men Type: BLOOD SPECIMENOrdering Facility: [facility] Address: [address] [place] [address] Performed By: #### 5 8410-2 ####[facility]ORATORYCLIA [id number] [address] Platelets (Bld) [#/Vol] 172 10*3/uL Normal 150-400 [facility] Comment on above: Order Comment: Speci men Type: BLOOD SPECIMENOrdering Facility: [facility] Address: [address] [place] [address] Performed By: #### 5 8410-2 ####[facility] LABORATORYCLIA [id number] [place] [address] [place] RBC (Bld) [#/Vol] 2.58 10*6/uL Low 4.20-6.00 [facility] Comment on above: Order Comment: Speci men Type: BLOOD SPECIMENOrdering Facility: [facility] Address: [address] [place] [address] Performed By: #### 5 8410-2 ####[facility] LABORATORYCLIA [id number] [place] [address] [place] WBC (Bld) [#/Vol] 18.54 10*3/uL High 3.70-11.00 [facility] Comment on above: Order Comment: Speci men Type: BLOOD SPECIMENOrdering Facility: [facility] Address: [address] [place] [address] Performed By: #### 5 8410-2 ####[facility] LABORATORYCLIA [id number] [address] [place] CONSULT PROGon 08-31-2024 CONSULT PROG Normal [facility] Magnesium SerPl-mCncon 08-31 Magnesium [Mass/Vol] 1.9 mg/dL Normal 1.7-2.3 [facility] Comment on above: Order Comment: Speci men Type: BLOOD SPECIMENOrdering Facility: [facility] Address: [address] [place] [address] Performed By: #### 2 4321-2, 39298-1 ####[facility] LABORATORYCLIA [id number] [place] [address] [place] NUTRITIONon 08-31-2024 NUTRITION Normal [facility] XR CHEST 1V FRONTALon 2024 XR CHEST 1V FRONTAL Normal [facility] ANES POSTPROC EVALon 025 ANES POSTPROC EVAL Normal [facility] ANES PRE-OPon 08-30-2024 ANES PRE-OP Normal [facility] ARTERIAL BLOOD GASESon 08-30 Base deficit (BldA) [Moles/Vol] -2 mmol/L Normal -2-0 [facility] Comment on above: Order Comment: Speci men Type: ARTERIAL BLOOD SPECIMENOrdering Facility: [facility] Address: [address] [place] [address] Performed By: #### A LLBG ####[facility] LABORATORYCLIA [id number] [address] [place] Body temperature 98.6 [degF] Normal [facility] Comment on above: Order Comment: Speci men Type: ARTERIAL BLOOD SPECIMENOrdering Facility: [facility] Address: [address] [place] [address] Performed By: #### A LLBG ####[facility] LABORATORYCLIA [id number] [address] [place] Calcium.ionized (BldV) [Mass/Vol] 1.28 mmol/L Normal 1.08-1.30 [facility] Comment on above: Order Comment: Speci men Type: ARTERIAL BLOOD SPECIMENOrdering Facility: [facility] Address: [address] [place] [address] Performed By: #### A LLBG ####[facility] LABORATORYCLIA [id number] [address] [place] Calcium.ionized adjusted to pH 7.4 (BldA) [Moles/Vol] 1.26 mmol/L Normal 1.08-1.30 [facility] Comment on above: Order Comment: Speci men Type: ARTERIAL BLOOD SPECIMENOrdering Facility: [facility] Address: [address] [place] [address] Performed By: #### A LLBG ####[facility] LABORATORYCLIA [id number] [address] [place] Carboxyhemoglobin (BldA) [Mass fraction] 1.8 % Normal 0.0-2.0 [facility] Comment on above: Order Comment: Speci men Type: ARTERIAL BLOOD SPECIMENOrdering Facility: [facility] Address: [address] [place] [address] Result Comment: Carb oxyhemoglobin Reference Range for Smokers: 2.0-8.0% Performed By: #### A LLBG ####[facility]ATORYCLIA [id number] [address] [place] Chloride [Moles/Vol] 105 mmol/L Normal 97-105 [facility] Comment on above: Order Comment: Speci men Type: ARTERIAL BLOOD SPECIMENOrdering Facility: [facility] Address: [address] [place] [address] Performed By: #### A LLBG ####[facility] LABORATORYCLIA [id number] [address] [place] CO2 (Bld) [Partial pressure] 40 mm Hg Normal 36-46 [facility] Comment on above: Order Comment: Speci men Type: ARTERIAL BLOOD SPECIMENOrdering Facility: [facility] Address: [address] [place] [address] Performed By: #### A LLBG ####[facility] LABORATORYCLIA [id number] [address] [place] Glucose [Mass/Vol] 137 mg/dL High 60-105 [facility] Comment on above: Order Comment: Speci men Type: ARTERIAL BLOOD SPECIMENOrdering Facility: [facility] Address: [address] [place] [address] Performed By: #### A LLBG ####[facility] LABORATORYCLIA [id number] [address] [place] HCO3 (Bld) [Moles/Vol] 22 mmol/L Normal 22-26 [facility] Comment on above: Order Comment: Speci men Type: ARTERIAL BLOOD SPECIMENOrdering Facility: [facility] Address: [address] [place] [address] Performed By: #### A LLBG ####[facility]ORATORYCLIA [id number] [address] [place] Hematocrit (Bld) [Volume fraction] 27.9 % Low 39.0-51.0 [facility] Comment on above: Order Comment: Speci men Type: ARTERIAL BLOOD SPECIMENOrdering Facility: [facility] Address: [address] [place] [address] Performed By: #### A LLBG ####[facility]ATORYCLIA [id number] [address] [place] Hemoglobin (Bld) [Mass/Vol] 9.0 g/dL Low 13.0-17.0 [facility] Comment on above: Order Comment: Speci men Type: ARTERIAL BLOOD SPECIMENOrdering Facility: [facility] Address: [address] [place] [address] Performed By: #### A LLBG ####[facility] LABORATORYCLIA [id number] [address] [place] Lactate [Moles/Vol] 1.6 mmol/L Normal 0.5-2.2 [facility] Comment on above: Order Comment: Speci men Type: ARTERIAL BLOOD SPECIMENOrdering Facility: [facility] Address: [address] [place] [address] Performed By: #### A LLBG ####[facility] LABORATORYCLIA [id number] [address] [place] Methemoglobin (Bld) [Mass fraction] 0.7 % Normal 0.0-1.5 [facility] Comment on above: Order Comment: Speci men Type: ARTERIAL BLOOD SPECIMENOrdering Facility: [facility] Address: [address] [place] [address] Performed By: #### A LLBG ####[facility]ATORYCLIA [id number] [address] [place] O2 THERAPY NC = Nasal Cannula Normal [facility] Comment on above: Order Comment: Speci men Type: ARTERIAL BLOOD SPECIMENOrdering Facility: [facility] Address: [address] [place] [address] Performed By: #### A LLBG ####[facility]ATORYCLIA [id number] [address] [place] Oxygen (Bld) [Partial pressure] 92 mm Hg Normal 85-95 [facility] Comment on above: Order Comment: Speci men Type: ARTERIAL BLOOD SPECIMENOrdering Facility: [facility] Address: [address] [place] [address] Performed By: #### A LLBG ####[facility] LABORATORYCLIA [id number] [address] [place] Oxyhemoglobin (BldA) [Mass fraction] 95 % Normal 95-98 [facility] Comment on above: Order Comment: Speci men Type: ARTERIAL BLOOD SPECIMENOrdering Facility: [facility] Address: [address] [place] [address] Performed By: #### A LLBG ####[facility] LABORATORYCLIA [id number] [place] [address] [place] pH (Bld) 7.37 [pH] Normal 7.35-7.45 [facility] Comment on above: Order Comment: Speci men Type: ARTERIAL BLOOD SPECIMENOrdering Facility: [facility] Address: [address] [place] [address] Performed By: #### A LLBG ####[facility] LABORATORYCLIA [id number] [place] [address] [place] Potassium [Moles/Vol] 4.7 mmol/L Normal 3.5-5.0 [facility] Comment on above: Order Comment: Speci men Type: ARTERIAL BLOOD SPECIMENOrdering Facility: [facility] Address: [address] [place] [address] Performed By: #### A LLBG ####[facility] LABORATORYCLIA [id number] [place] [address] [place] Sodium [Moles/Vol] 133 mmol/L Low 136-144 [facility] Comment on above: Order Comment: Speci men Type: ARTERIAL BLOOD SPECIMENOrdering Facility: [facility] Address: [address] [place] [address] Performed By: #### A LLBG ####[facility] LABORATORYCLIA [id number] [place] [address] [place] Base deficit (BldA) [Moles/Vol] -3 mmol/L Low -2-0 [facility] Comment on above: Order Comment: Speci men Type: ARTERIAL BLOOD SPECIMENOrdering Facility: [facility] Address: [address] [place] [address] Performed By: #### A LLBG ####[facility] LABORATORYCLIA [id number] [address] Body temperature 98.6 [degF] Normal [facility] Comment on above: Order Comment: Speci men Type: ARTERIAL BLOOD SPECIMENOrdering Facility: [facility] Address: [address] [place] [address] Performed By: #### A LLBG ####[facility] LABORATORYCLIA [id number] [address] Calcium.ionized (BldV) [Mass/Vol] 1.33 mmol/L High 1.08-1.30 [facility] Comment on above: Order Comment: Speci men Type: ARTERIAL BLOOD SPECIMENOrdering Facility: [facility] Address: [address] [place] [address] Performed By: #### A LLBG ####[facility] LABORATORYCLIA [id number] [address] Calcium.ionized adjusted to pH 7.4 (BldA) [Moles/Vol] 1.29 mmol/L Normal 1.08-1.30 [facility] Comment on above: Order Comment: Speci men Type: ARTERIAL BLOOD SPECIMENOrdering Facility: [facility] Address: [address] [place] [address] Performed By: #### A LLBG ####[facility] LABORATORYCLIA [id number] [address] Carboxyhemoglobin (BldA) [Mass fraction] 2.2 % High 0.0-2.0 [facility] Comment on above: Order Comment: Speci men Type: ARTERIAL BLOOD SPECIMENOrdering Facility: [facility] Address: [address] [place] [address] Result Comment: Carb oxyhemoglobin Reference Range for Smokers: 2.0-8.0% Performed By: #### A LLBG ####[facility]ORATORYCLIA [id number] [address] [place] Chloride [Moles/Vol] 105 mmol/L Normal 97-105 [facility] Comment on above: Order Comment: Speci men Type: ARTERIAL BLOOD SPECIMENOrdering Facility: [facility] Address: [address] [place] [address] Performed By: #### A LLBG ####[facility] LABORATORYCLIA [id number] [address] OF [facility] CO2 (Bld) [Partial pressure] 43 mm Hg Normal 36-46 [facility] Comment on above: Order Comment: Speci men Type: ARTERIAL BLOOD SPECIMENOrdering Facility: [facility] Address: [address] [place] [address] Performed By: #### A LLBG ####[facility] LABORATORYCLIA [id number] [address] Glucose [Mass/Vol] 150 mg/dL High 60-105 [facility] Comment on above: Order Comment: Speci men Type: ARTERIAL BLOOD SPECIMENOrdering Facility: [facility] Address: [address] [place] [address] Performed By: #### A LLBG ####[facility] LABORATORYCLIA [id number] [address] HCO3 (Bld) [Moles/Vol] 23 mmol/L Normal 22-26 [facility] Comment on above: Order Comment: Speci men Type: ARTERIAL BLOOD SPECIMENOrdering Facility: [facility] Address: [address] [place] [address] Performed By: #### A LLBG ####[facility] LABORATORYCLIA [id number] [address] Hematocrit (Bld) [Volume fraction] 31.3 % Low 39.0-51.0 [facility] Comment on above: Order Comment: Speci men Type: ARTERIAL BLOOD SPECIMENOrdering Facility: [facility] Address: [address] [place] [address] Performed By: #### A LLBG ####[facility] LABORATORYCLIA [id number] [address] [place] Hemoglobin (Bld) [Mass/Vol] 10.1 g/dL Low 13.0-17.0 [facility] Comment on above: Order Comment: Speci men Type: ARTERIAL BLOOD SPECIMENOrdering Facility: [facility] Address: [address] [place] [address] Performed By: #### A LLBG ####[facility] LABORATORYCLIA [id number] [address] [place] Lactate [Moles/Vol] 1.9 mmol/L Normal 0.5-2.2 [facility] Comment on above: Order Comment: Speci men Type: ARTERIAL BLOOD SPECIMENOrdering Facility: [facility] Address: [address] [place] [address] Performed By: #### A LLBG ####[facility] LABORATORYCLIA [id number] [address] [place] Methemoglobin (Bld) [Mass fraction] 0.7 % Normal 0.0-1.5 [facility] Comment on above: Order Comment: Speci men Type: ARTERIAL BLOOD SPECIMENOrdering Facility: [facility] Address: [address] [place] [address] Performed By: #### A LLBG ####[facility] LABORATORYCLIA [id number] [address] [place] O2 THERAPY VENT=Ventilator Normal [facility] Comment on above: Order Comment: Speci men Type: ARTERIAL BLOOD SPECIMENOrdering Facility: [facility] Address: [address] [place] [address] Performed By: #### A LLBG ####[facility] LABORATORYCLIA [id number] [address] Oxygen (Bld) [Partial pressure] 100 mm Hg High 85-95 [facility] Comment on above: Order Comment: Speci men Type: ARTERIAL BLOOD SPECIMENOrdering Facility: [facility] Address: [address] [place] [address] Performed By: #### A LLBG ####[facility] LABORATORYCLIA [id number] [address] Oxyhemoglobin (BldA) [Mass fraction] 95 % Normal 95-98 [facility] Comment on above: Order Comment: Speci men Type: ARTERIAL BLOOD SPECIMENOrdering Facility: [facility] Address: [address] [place] [address] Performed By: #### A LLBG ####[facility] LABORATORYCLIA [id number] [address] [place] pH (Bld) 7.34 [pH] Low 7.35-7.45 [facility] Comment on above: Order Comment: Speci men Type: ARTERIAL BLOOD SPECIMENOrdering Facility: [facility] Address: [address] [place] [address] Performed By: #### A LLBG ####[facility] LABORATORYCLIA [id number] [place] [address] [place] Potassium [Moles/Vol] 3.8 mmol/L Normal 3.5-5.0 [facility] Comment on above: Order Comment: Speci men Type: ARTERIAL BLOOD SPECIMENOrdering Facility: [facility] Address: [address] [place] [address] Performed By: #### A LLBG ####[facility] LABORATORYCLIA [id number] [place] [address] [place] Sodium [Moles/Vol] 135 mmol/L Low 136-144 [facility] Comment on above: Order Comment: Speci men Type: ARTERIAL BLOOD SPECIMENOrdering Facility: [facility] Address: [address] [place] [address] Performed By: #### A LLBG ####[facility] LABORATORYCLIA [id number] [place] [address] [place] Basic metabolic 2000 panelon 08-30-2024 Anion gap [Moles/Vol] 7 mmol/L Low 8-15 [facility] Comment on above: Order Comment: Speci men Type: BLOOD SPECIMENOrdering Facility: [facility] Address: [address] [place] [address] Performed By: #### 2 4321-2, ####[facility]ORATORYCLIA [id number] [place] [address] [place] Calcium [Mass/Vol] 9.2 mg/dL Normal 8.5-10.2 [facility] Comment on above: Order Comment: Speci men Type: BLOOD SPECIMENOrdering Facility: [facility] Address: [address] [place] [address] Performed By: #### 2 4320-2, ####[facility]ORATORYCLIA [id number] [place] [address] [place] Chloride [Moles/Vol] 104 mmol/L Normal 98-107 [facility] Comment on above: Order Comment: Speci men Type: BLOOD SPECIMENOrdering Facility: [facility] Address: [address] [place] [address] Performed By: #### 2 2, ####[facility]ORATORYCLIA [id number] [place] [address] [place] CO2 [Moles/Vol] 23 mmol/L Normal 22-30 [facility] Comment on above: Order Comment: Speci men Type: BLOOD SPECIMENOrdering Facility: [facility] Address: [address] [place] [address] Performed By: #### 2 4320-2, ####[facility]ORATORYCLIA [id number] [place] [address] [place] Creatinine [Mass/Vol] 1.15 mg/dL Normal 0.73-1.22 [facility] Comment on above: Order Comment: Speci men Type: BLOOD SPECIMENOrdering Facility: [facility] Address: [address] [place] [address] Performed By: #### 2 4320-2, ####[facility]ORATORYCLIA [id number] [place] [id number] [place] Creatinine and Glomerular filtration rate.predicted panel (S/P/Bld) 69 mL/min/1.73m??? Normal >=60 [facility] Comment on above: Order Comment: Yojana riggins Type: BLOOD SPECIMENOrdering Facility: [facility] Address: [address] [place] [address] Result Comment: Apple mated Glomerular Filtration Rate [...] actual GFR. Performed By: #### 2 4321-2, ####[facility]GCLIA [id number] [place] [address] [place] Glucose [Mass/Vol] 152 mg/dL High 74-99 [facility] Comment on above: Order Comment: Yojana riggins Type: BLOOD SPECIMENOrdering Facility: [facility] Address: [address] [place] [address] Result Comment: The [place] Diabetes Association (ADA) provides guidance for cutoff [...] Standards of Medical Care in Diabetes 2016, [place] [employer]. Diabetes Care. 2016.39(Suppl 1). Performed By: #### 2 4321-2, ####[facility] LABORATORYCLIA [id number] [place] [id number] [place] Potassium [Moles/Vol] 3.9 mmol/L Normal 3.7-5.1 [facility] Comment on above: Order Comment: Speci men Type: BLOOD SPECIMENOrdering Facility: [facility] Address: [address] [place] [address] Performed By: #### 2 4321-2, ####[facility]ATORYCLIA [id number] [place] [address] [place] Sodium [Moles/Vol] 134 mmol/L Low 136-144 [facility] Comment on above: Order Comment: Speci men Type: BLOOD SPECIMENOrdering Facility: [facility] Address: [address] [place] [address] Performed By: #### 2 4321-2, ####[facility] LABORATORYCLIA [id number] [place] [address] [place] Urea nitrogen [Mass/Vol] 12 mg/dL Normal 9-24 [facility] Comment on above: Order Comment: Speci men Type: BLOOD SPECIMENOrdering Facility: [facility] Address: [address] [place] [address] Performed By: #### 2 4321-2, ####[facility]ATORYCLIA [id number] [place] [address] [place] Anion gap [Moles/Vol] 9 mmol/L Normal 8-15 [facility] Comment on above: Order Comment: Speci men Type: BLOOD SPECIMENOrdering Facility: [facility] Address: [address] [place] [address] Performed By: #### 2 4321-2 ####[facility]ATORYCLIA [id number] [place] [address] [place] Calcium [Mass/Vol] 9.2 mg/dL Normal 8.5-10.2 [facility] Comment on above: Order Comment: Speci men Type: BLOOD SPECIMENOrdering Facility: [facility] Address: [address] [place] [address] Performed By: #### 2 4321-2 ####[facility]ORATORYCLIA [id number] [address] [place] Chloride [Moles/Vol] 100 mmol/L Normal 98-107 [facility] Comment on above: Order Comment: Speci men Type: BLOOD SPECIMENOrdering Facility: [facility] Address: [address] [place] [address] Performed By: #### 2 4321-2 ####[facility] LABORATORYCLIA [id number] [address] [place] CO2 [Moles/Vol] 25 mmol/L Normal 22-30 [facility] Comment on above: Order Comment: Speci men Type: BLOOD SPECIMENOrdering Facility: [facility] Address: [address] [place] [address] Performed By: #### 2 4321-2 ####[facility] LABORATORYCLIA [id number] [address] STATES OF [facility] Creatinine [Mass/Vol] 1.14 mg/dL Normal 0.73-1.22 [facility] Comment on above: Order Comment: Speci men Type: BLOOD SPECIMENOrdering Facility: [facility] Address: [address] [place] [address] Performed By: #### 2 4321-2 ####[facility] LABORATORYCLIA [id number] [address] Creatinine and Glomerular filtration rate.predicted panel (S/P/Bld) 70 mL/min/1.73m??? Normal >=60 [facility] Comment on above: Order Comment: Speci men Type: BLOOD SPECIMENOrdering Facility: [facility] Address: [address] [place] [address] Result Comment: Apple mated Glomerular Filtration Rate [...] actual GFR. Performed By: #### 2 4321-2 ####[facility]ORATORYCLIA [id number] [place] [address] [place] Glucose [Mass/Vol] 159 mg/dL High 74-99 [facility] Comment on above: Order Comment: Yojana riggins Type: BLOOD SPECIMENOrdering Facility: [facility] Address: [address] [place] [address] Result Comment: The [place] Diabetes Association (ADA) provides guidance for cutoff [...] Standards of Medical Care in Diabetes 2016, [place] [employer]. Diabetes Care. 2016.39(Suppl 1). Performed By: #### 2 4321-2 ####[facility] LABORATORYCLIA [id number] [place] [address] [place] Potassium [Moles/Vol] 4.3 mmol/L Normal 3.7-5.1 [facility] Comment on above: Order Comment: Yojana riggins Type: BLOOD SPECIMENOrdering Facility: [facility] Address: [address] [place] [address] Performed By: #### 2 4321-2 ####[facility]ORATORYCLIA [id number] [place] [address] [place] Sodium [Moles/Vol] 134 mmol/L Low 136-144 [facility] Comment on above: Order Comment: Yojana riggins Type: BLOOD SPECIMENOrdering Facility: [facility] Address: [address] [place] [address] Performed By: #### 2 4321-2 ####[facility]ORATORYCLIA [id number] [place] [address] [place] Urea nitrogen [Mass/Vol] 13 mg/dL Normal 9-24 [facility] Comment on above: Order Comment: Speci men Type: BLOOD SPECIMENOrdering Facility: [facility] Address: [address] [place] [address] Performed By: #### 2 4321-2 ####[facility] LABORATORYCLIA [id number] [address] CBC panel Auto (Bld)on 08-30 Erythrocyte distribution width (RBC) [Ratio] 14.6 % Normal 11.5-15.0 [facility] Comment on above: Order Comment: Speci men Type: BLOOD SPECIMENOrdering Facility: [facility] Address: [address] [place] [address] Performed By: #### 5 8410-2 ####[facility] LABORATORYCLIA [id number] [address] STATES [facility] Hematocrit (Bld) [Volume fraction] 29.4 % Low 39.0-51.0 [facility] Comment on above: Order Comment: Speci men Type: BLOOD SPECIMENOrdering Facility: [facility] Address: [address] [place] [address] Performed By: #### 5 8410-2 ####[facility] LABORATORYCLIA [id number] [address] Hemoglobin (Bld) [Mass/Vol] 10.0 g/dL Low 13.0-17.0 [facility] Comment on above: Order Comment: Speci men Type: BLOOD SPECIMENOrdering Facility: [facility] Address: [address] [place] [address] Performed By: #### 5 8410-2 ####[facility]ORATORYCLIA [id number] [address] MCH (RBC) [Entitic mass] 31.2 pg Normal 26.0-34.0 [facility] Comment on above: Order Comment: Speci men Type: BLOOD SPECIMENOrdering Facility: [facility] Address: [address] [place] [address] Performed By: #### 5 8410-2 ####[facility] LABORATORYCLIA [id number] [address] [place] MCHC (RBC) [Mass/Vol] 34.0 g/dL Normal 30.5-36.0 [facility] Comment on above: Order Comment: Speci men Type: BLOOD SPECIMENOrdering Facility: [facility] Address: [address] [place] [address] Performed By: #### 5 8410-2 ####[facility] LABORATORYCLIA [id number] [address] [place] MCV (RBC) [Entitic vol] 91.6 fL Normal 80.0-100.0 [facility] Comment on above: Order Comment: Speci men Type: BLOOD SPECIMENOrdering Facility: [facility] Address: [address] [place] [address] Performed By: #### 5 8410-2 ####[facility] LABORATORYCLIA [id number] [address] [place] Nucleated RBC (Bld) [#/Vol] 10*3/uL Normal <0.01 [facility] Comment on above: Order Comment: Speci men Type: BLOOD SPECIMENOrdering Facility: [facility] Address: [address] [place] [address] Performed By: #### 5 8410-2 ####[facility] LABORATORYCLIA [id number] [address] [place] Platelet mean volume (Bld) [Entitic vol] 8.4 fL Low 9.0-12.7 [facility] Comment on above: Order Comment: Speci men Type: BLOOD SPECIMENOrdering Facility: [facility] Address: [address] [place] [address] Performed By: #### 5 8410-2 ####[facility] LABORATORYCLIA [id number] [address] [place] Platelets (Bld) [#/Vol] 155 10*3/uL Normal 150-400 [facility] Comment on above: Order Comment: Speci men Type: BLOOD SPECIMENOrdering Facility: [facility] Address: [address] [place] [address] Performed By: #### 5 8410-2 ####[facility]ORATORYCLIA [id number] [address] RBC (Bld) [#/Vol] 3.21 10*6/uL Low 4.20-6.00 [facility] Comment on above: Order Comment: Speci men Type: BLOOD SPECIMENOrdering Facility: [facility] Address: [address] [place] [address] Performed By: #### 5 8410-2 ####[facility] LABORATORYCLIA [id number] [address] WBC (Bld) [#/Vol] 23.57 10*3/uL High 3.70-11.00 [facility] Comment on above: Order Comment: Speci men Type: BLOOD SPECIMENOrdering Facility: [facility] Address: [address] [place] [address] Performed By: #### 5 8410-2 ####[facility] LABORATORYCLIA [id number] [address] Erythrocyte distribution width (RBC) [Ratio] 14.8 % Normal 11.5-15.0 [facility] Comment on above: Order Comment: Speci men Type: BLOOD SPECIMENOrdering Facility: [facility] Address: [address] [place] [address] Performed By: #### 5 8410-2 ####[facility] LABORATORYCLIA [id number] [address] Hematocrit (Bld) [Volume fraction] 37.0 % Low 39.0-51.0 [facility] Comment on above: Order Comment: Speci men Type: BLOOD SPECIMENOrdering Facility: [facility] Address: [address] [place] [address] Performed By: #### 5 8410-2 ####[facility] LABORATORYCLIA [id number] [address] Hemoglobin (Bld) [Mass/Vol] 12.7 g/dL Low 13.0-17.0 [facility] Comment on above: Order Comment: Speci men Type: BLOOD SPECIMENOrdering Facility: [facility] Address: [address] [place] [address] Performed By: #### 5 8410-2 ####[facility] LABORATORYCLIA [id number] [address] OF [facility] MCH (RBC) [Entitic mass] 30.8 pg Normal 26.0-34.0 [facility] Comment on above: Order Comment: Speci men Type: BLOOD SPECIMENOrdering Facility: [facility] Address: [address] [place] [address] Performed By: #### 5 8410-2 ####[facility] LABORATORYCLIA [id number] [address] MCHC (RBC) [Mass/Vol] 34.3 g/dL Normal 30.5-36.0 [facility] Comment on above: Order Comment: Speci men Type: BLOOD SPECIMENOrdering Facility: [facility] Address: [address] [place] [address] Performed By: #### 5 8410-2 ####[facility] LABORATORYCLIA [id number] [address] MCV (RBC) [Entitic vol] 89.8 fL Normal 80.0-100.0 [facility] Comment on above: Order Comment: Speci men Type: BLOOD SPECIMENOrdering Facility: [facility] Address: [address] [place] [address] Performed By: #### 5 8410-2 ####[facility] LABORATORYCLIA [id number] [address] Nucleated RBC (Bld) [#/Vol] 10*3/uL Normal <0.01 [facility] Comment on above: Order Comment: Speci men Type: BLOOD SPECIMENOrdering Facility: [facility] Address: [address] [place] [address] Performed By: #### 5 8410-2 ####[facility] LABORATORYCLIA [id number] [place] [address] [place] Platelet mean volume (Bld) [Entitic vol] 8.4 fL Low 9.0-12.7 [facility] Comment on above: Order Comment: Speci men Type: BLOOD SPECIMENOrdering Facility: [facility] Address: [address] [place] [address] Performed By: #### 5 8410-2 ####[facility] LABORATORYCLIA [id number] [place] [address] [place] Platelets (Bld) [#/Vol] 188 10*3/uL Normal 150-400 [facility] Comment on above: Order Comment: Speci men Type: BLOOD SPECIMENOrdering Facility: [facility] Address: [address] [place] [address] Performed By: #### 5 8410-2 ####[facility] LABORATORYCLIA [id number] [place] [address] [place] RBC (Bld) [#/Vol] 4.12 10*6/uL Low 4.20-6.00 [facility] Comment on above: Order Comment: Speci men Type: BLOOD SPECIMENOrdering Facility: [facility] Address: [address] [place] [address] Performed By: #### 5 8410-2 ####[facility] LABORATORYCLIA [id number] [address] [place] WBC (Bld) [#/Vol] 6.87 10*3/uL Normal 3.70-11.00 [facility] Comment on above: Order Comment: Speci men Type: BLOOD SPECIMENOrdering Facility: [facility] Address: [address] [place] [address] Performed By: #### 5 8410-2 ####[facility] LABORATORYCLIA [id number] [address] [place] CONSULTon 08-30-2024 CONSULT Normal [facility] ECG COMPLETEon 08-30-2024 ECG COMPLETE Normal [facility] Fibrinogen PPP-mCncon 2024 Fibrinogen Coag (PPP) [Mass/Vol] 193 mg/dL Low 200-400 [facility] Comment on above: Order Comment: Yojana riggins Type: BLOOD SPECIMENOrdering Facility: [facility] Address: [address] [place] [address] Performed By: #### 3 255-7 ####[facility] LABORATORYCLIA [id number] [address] OF [facility] INTRAOPERATIVE ECHO PREon INTRAOPERATIVE ECHO PRE Normal [facility] Magnesium SerPl-mCncon 08-30 Magnesium [Mass/Vol] 1.8 mg/dL Normal 1.7-2.3 [facility] Comment on above: Order Comment: Yojana riggins Type: BLOOD SPECIMENOrdering Facility: [facility] Address: [address] [place] [address] Performed By: #### 2 4321-2, 59662-8 ####[facility] LABORATORYCLIA [id number] [address] OPERATIVE NOon 08-30-2024 OPERATIVE NO Normal [facility] PT panel Coag (PPP)on 2024 INR Coag (PPP) [Relative time] 1.2 {INR} Normal 0.9-1.3 [facility] Comment on above: Order Comment: Yojana riggins Type: BLOOD SPECIMENOrdering Facility: [facility] Address: [address] [place] [address] Result Comment: Trish min K Antagonist (VKA) Therapeutic Range: INR 2 to 3 (Target INR of 2.5)Note: For patients treated with VKA drugs, such as warfarin, the [employer] 2012 Guideline recommends [...] Chest 2012, 141:7S-47SNishimura RA, et al. [facility] 2017, 70: 252-289 Performed By: #### 3 4528-0, 34887-9 ####[facility] LABORATORYCLIA [id number] [address] PT Coag (PPP) [Time] 13.1 s High 9.7-13.0 [facility] Comment on above: Order Comment: Speci men Type: BLOOD SPECIMENOrdering Facility: [facility] Address: [address] [place] [address] Performed By: #### 3 4528-0, 86535-9 ####[facility] LABORATORYCLIA [id number] [address] Platelets Auto (Bld) [#/Vol] on 08-30-2024 Platelets (Bld) [#/Vol] 134 10*3/uL Low 150-400 [facility] Comment on above: Order Comment: Speci men Type: BLOOD SPECIMENOrdering Facility: [facility] Address: [address] [place] [address] Performed By: #### 7 77-3 ####[facility] LABORATORYCLIA [id number] [address] XR CHEST 1V FRONTALon 2024 XR CHEST 1V FRONTAL Normal [facility] aPTT PPPon 08-30-2024 aPTT Coag (PPP) [Time] 32.2 s Normal 23.0-32.4 [facility] Comment on above: Order Comment: Speci men Type: BLOOD SPECIMENOrdering Facility: [facility] Address: [address] [place] [address] Performed By: #### 3 4528-0, 09649-6 ####[facility] LABORATORYCLIA [id number] [place] [id number] [place] CASE MANAGEMon 08-29-2024 CASE MANAGEM Normal [facility] CBC panel Auto (Bld)on 08-29 Erythrocyte distribution width (RBC) [Ratio] 14.7 % Normal 11.5-15.0 [facility] Comment on above: Order Comment: Speci men Type: BLOOD SPECIMENOrdering Facility: [facility] Address: [address] [place] [address] Performed By: #### 5 8410-2 ####[facility] LABORATORYCLIA [id number] [address] Hematocrit (Bld) [Volume fraction] 34.7 % Low 39.0-51.0 [facility] Comment on above: Order Comment: Speci men Type: BLOOD SPECIMENOrdering Facility: [facility] Address: [address] [place] [address] Performed By: #### 5 8410-2 ####[facility] LABORATORYCLIA [id number] [address] OF [facility] Hemoglobin (Bld) [Mass/Vol] 11.9 g/dL Low 13.0-17.0 [facility] Comment on above: Order Comment: Speci men Type: BLOOD SPECIMENOrdering Facility: [facility] Address: [address] [place] [address] Performed By: #### 5 8410-2 ####[facility] LABORATORYCLIA [id number] [address] [place] MCH (RBC) [Entitic mass] 30.5 pg Normal 26.0-34.0 [facility] Comment on above: Order Comment: Speci men Type: BLOOD SPECIMENOrdering Facility: [facility] Address: [address] [place] [address] Performed By: #### 5 8410-2 ####[facility] LABORATORYCLIA [id number] [address] [place] MCHC (RBC) [Mass/Vol] 34.3 g/dL Normal 30.5-36.0 [facility] Comment on above: Order Comment: Speci men Type: BLOOD SPECIMENOrdering Facility: [facility] Address: [address] [place] [address] Performed By: #### 5 8410-2 ####[facility] LABORATORYCLIA [id number] [address] MCV (RBC) [Entitic vol] 89.0 fL Normal 80.0-100.0 [facility] Comment on above: Order Comment: Speci men Type: BLOOD SPECIMENOrdering Facility: [facility] Address: [address] [place] [address] Performed By: #### 5 8410-2 ####[facility] LABORATORYCLIA [id number] [address] Nucleated RBC (Bld) [#/Vol] 10*3/uL Normal <0.01 [facility] Comment on above: Order Comment: Speci men Type: BLOOD SPECIMENOrdering Facility: [facility] Address: [address] [place] [address] Performed By: #### 5 8410-2 ####[facility] LABORATORYCLIA [id number] [address] STATES [facility] Platelet mean volume (Bld) [Entitic vol] 8.3 fL Low 9.0-12.7 [facility] Comment on above: Order Comment: Speci men Type: BLOOD SPECIMENOrdering Facility: [facility] Address: [address] [place] [address] Performed By: #### 5 8410-2 ####[facility] LABORATORYCLIA [id number] [address] OF [facility] Platelets (Bld) [#/Vol] 184 10*3/uL Normal 150-400 [facility] Comment on above: Order Comment: Speci men Type: BLOOD SPECIMENOrdering Facility: [facility] Address: [address] [place] [address] Performed By: #### 5 8410-2 ####[facility] LABORATORYCLIA [id number] [address] [place] RBC (Bld) [#/Vol] 3.90 10*6/uL Low 4.20-6.00 [facility] Comment on above: Order Comment: Speci men Type: BLOOD SPECIMENOrdering Facility: [facility] Address: [address] [place] [address] Performed By: #### 5 8410-2 ####[facility] LABORATORYCLIA [id number] [place] [address] [place] WBC (Bld) [#/Vol] 6.63 10*3/uL Normal 3.70-11.00 [facility] Comment on above: Order Comment: Speci men Type: BLOOD SPECIMENOrdering Facility: [facility] Address: [address] [place] [address] Performed By: #### 5 8410-2 ####[facility] LABORATORYCLIA [id number] [address] CONSULT PROGon 08-29-2024 CONSULT PROG Normal [facility] TYPE + SCREENon 08-29-2024 ABO O Normal [facility] Comment on above: Order Comment: Speci men Type: BLOOD SPECIMENOrdering Facility: [facility] Address: [address] [place] [address] Performed By: #### T SCR ####[facility] BLOOD BANKCLIA [id number] [address] STATES OF [facility] Rh Nom (Bld) Positive Normal [facility] Comment on above: Order Comment: Speci men Type: BLOOD SPECIMENOrdering Facility: [facility] Address: [address] [place] [address] Performed By: #### T SCR ####[facility] BLOOD BANKCLIA [id number] [address] TYPE AND SCREEN EXPIRATION 09/01/2024 23:59 Normal [facility] Comment on above: Order Comment: Speci men Type: BLOOD SPECIMENOrdering Facility: [facility] Address: [address] [place] [address] Performed By: #### T SCR ####[facility] BLOOD BANKCLIA [id number] [address] [place] aPTT PPPon 08-29-2024 aPTT Coag (PPP) [Time] 58.7 s High 23.0-32.4 [facility] Comment on above: Order Comment: Speci men Type: BLOOD SPECIMENOrdering Facility: [facility] Address: [address] [place] [address] Performed By: #### 1 4979-9 ####[facility] LABORATORYCLIA [id number] [address] OF [facility] CASE MANAGEMon 08-28-2024 CASE MANAGEM Normal [facility] CBC panel Auto (Bld)on 08-28 Erythrocyte distribution width (RBC) [Ratio] 14.2 % Normal 11.5-15.0 [facility] Comment on above: Order Comment: Speci men Type: BLOOD SPECIMENOrdering Facility: [facility] Address: [address] [place] [address] Performed By: #### 5 8410-2 ####[facility] LABORATORYCLIA [id number] [address] [place] Hematocrit (Bld) [Volume fraction] 35.2 % Low 39.0-51.0 [facility] Comment on above: Order Comment: Speci men Type: BLOOD SPECIMENOrdering Facility: [facility] Address: [address] [place] [address] Performed By: #### 5 8410-2 ####[facility] LABORATORYCLIA [id number] [address] [place] Hemoglobin (Bld) [Mass/Vol] 11.7 g/dL Low 13.0-17.0 [facility] Comment on above: Order Comment: Speci men Type: BLOOD SPECIMENOrdering Facility: [facility] Address: [address] [place] [address] Performed By: #### 5 8410-2 ####[facility] LABORATORYCLIA [id number] [address] [place] MCH (RBC) [Entitic mass] 30.7 pg Normal 26.0-34.0 [facility] Comment on above: Order Comment: Speci men Type: BLOOD SPECIMENOrdering Facility: [facility] Address: [address] [place] [address] Performed By: #### 5 8410-2 ####[facility] LABORATORYCLIA [id number] [address] STATES [facility] MCHC (RBC) [Mass/Vol] 33.2 g/dL Normal 30.5-36.0 [facility] Comment on above: Order Comment: Speci men Type: BLOOD SPECIMENOrdering Facility: [facility] Address: [address] [place] [address] Performed By: #### 5 8410-2 ####[facility] LABORATORYCLIA [id number] [address] STATES OF [facility] MCV (RBC) [Entitic vol] 92.4 fL Normal 80.0-100.0 [facility] Comment on above: Order Comment: Speci men Type: BLOOD SPECIMENOrdering Facility: [facility] Address: [address] [place] [address] Performed By: #### 5 8410-2 ####[facility] LABORATORYCLIA [id number] [address] Nucleated RBC (Bld) [#/Vol] 10*3/uL Normal <0.01 [facility] Comment on above: Order Comment: Speci men Type: BLOOD SPECIMENOrdering Facility: [facility] Address: [address] [place] [address] Performed By: #### 5 8410-2 ####[facility] LABORATORYCLIA [id number] [address] Platelet mean volume (Bld) [Entitic vol] 8.6 fL Low 9.0-12.7 [facility] Comment on above: Order Comment: Speci men Type: BLOOD SPECIMENOrdering Facility: [facility] Address: [address] [place] [address] Performed By: #### 5 8410-2 ####[facility] LABORATORYCLIA [id number] [address] [place] Platelets (Bld) [#/Vol] 187 10*3/uL Normal 150-400 [facility] Comment on above: Order Comment: Speci men Type: BLOOD SPECIMENOrdering Facility: [facility] Address: [address] [place] [address] Performed By: #### 5 8410-2 ####[facility] LABORATORYCLIA [id number] [place] [address] [place] RBC (Bld) [#/Vol] 3.81 10*6/uL Low 4.20-6.00 [facility] Comment on above: Order Comment: Speci men Type: BLOOD SPECIMENOrdering Facility: [facility] Address: [address] [place] [address] Performed By: #### 5 8410-2 ####[facility] LABORATORYCLIA [id number] [address] WBC (Bld) [#/Vol] 6.80 10*3/uL Normal 3.70-11.00 [facility] Comment on above: Order Comment: Speci men Type: BLOOD SPECIMENOrdering Facility: [facility] Address: [address] [place] [address] Performed By: #### 5 8410-2 ####[facility] LABORATORYCLIA [id number] [address] [place] aPTT PPPon 08-28-2024 aPTT Coag (PPP) [Time] 52.0 s High 23.0-32.4 [facility] Comment on above: Order Comment: Speci men Type: BLOOD SPECIMENOrdering Facility: [facility] Address: [address] [place] [address] Performed By: #### 1 4979-9 ####[facility] LABORATORYCLIA [id number] [address] [place] aPTT Coag (PPP) [Time] 73.7 s High 23.0-32.4 [facility] Comment on above: Order Comment: Speci men Type: BLOOD SPECIMENOrdering Facility: [facility] Address: [address] [place] [address] Performed By: #### 1 4979-9 ####[facility] LABORATORYCLIA [id number] [address] STATES OF [facility] aPTT Coag (PPP) [Time] 47.0 s High 23.0-32.4 [facility] Comment on above: Order Comment: Speci men Type: BLOOD SPECIMENOrdering Facility: [facility] Address: [address] [place] [address] Performed By: #### 1 4979-9 ####[facility] LABORATORYCLIA [id number] [address] CBC panel Auto (Bld)on 08-27 Erythrocyte distribution width (RBC) [Ratio] 14.2 % Normal 11.5-15.0 [facility] Comment on above: Order Comment: Speci men Type: BLOOD SPECIMENOrdering Facility: [facility] Address: [address] [place] [address] Performed By: #### 5 8410-2 ####[facility] LABORATORYCLIA [id number] [address] STATES OF [facility] Hematocrit (Bld) [Volume fraction] 35.8 % Low 39.0-51.0 [facility] Comment on above: Order Comment: Speci men Type: BLOOD SPECIMENOrdering Facility: [facility] Address: [address] [place] [address] Performed By: #### 5 8410-2 ####[facility] LABORATORYCLIA [id number] [address] [place] Hemoglobin (Bld) [Mass/Vol] 11.9 g/dL Low 13.0-17.0 [facility] Comment on above: Order Comment: Speci men Type: BLOOD SPECIMENOrdering Facility: [facility] Address: [address] [place] [address] Performed By: #### 5 8410-2 ####[facility] LABORATORYCLIA [id number] [address] MCH (RBC) [Entitic mass] 30.4 pg Normal 26.0-34.0 [facility] Comment on above: Order Comment: Speci men Type: BLOOD SPECIMENOrdering Facility: [facility] Address: [address] [place] [address] Performed By: #### 5 8410-2 ####[facility] LABORATORYCLIA [id number] [address] MCHC (RBC) [Mass/Vol] 33.2 g/dL Normal 30.5-36.0 [facility] Comment on above: Order Comment: Speci men Type: BLOOD SPECIMENOrdering Facility: [facility] Address: [address] [place] [address] Performed By: #### 5 8410-2 ####[facility] LABORATORYCLIA [id number] [address] MCV (RBC) [Entitic vol] 91.3 fL Normal 80.0-100.0 [facility] Comment on above: Order Comment: Speci men Type: BLOOD SPECIMENOrdering Facility: [facility] Address: [address] [place] [address] Performed By: #### 5 8410-2 ####[facility] LABORATORYCLIA [id number] [address] Nucleated RBC (Bld) [#/Vol] 10*3/uL Normal <0.01 [facility] Comment on above: Order Comment: Speci men Type: BLOOD SPECIMENOrdering Facility: [facility] Address: [address] [place] [address] Performed By: #### 5 8410-2 ####[facility] LABORATORYCLIA [id number] [address] Platelet mean volume (Bld) [Entitic vol] 8.7 fL Low 9.0-12.7 [facility] Comment on above: Order Comment: Speci men Type: BLOOD SPECIMENOrdering Facility: [facility] Address: [address] [place] [address] Performed By: #### 5 8410-2 ####[facility] LABORATORYCLIA [id number] [place] [id number] [place] OF [facility] Platelets (Bld) [#/Vol] 198 10*3/uL Normal 150-400 [facility] Comment on above: Order Comment: Speci men Type: BLOOD SPECIMENOrdering Facility: [facility] Address: [address] [place] [address] Performed By: #### 5 8410-2 ####[facility] LABORATORYCLIA [id number] [address] STATES OF [facility] RBC (Bld) [#/Vol] 3.92 10*6/uL Low 4.20-6.00 [facility] Comment on above: Order Comment: Speci men Type: BLOOD SPECIMENOrdering Facility: [facility] Address: [address] [place] [address] Performed By: #### 5 8410-2 ####[facility] LABORATORYCLIA [id number] [address] OF [facility] WBC (Bld) [#/Vol] 7.39 10*3/uL Normal 3.70-11.00 [facility] Comment on above: Order Comment: Speci men Type: BLOOD SPECIMENOrdering Facility: [facility] Address: [address] [place] [address] Performed By: #### 5 8410-2 ####[facility] LABORATORYCLIA [id number] [address] CONSULT PROGon 08-27-2024 CONSULT PROG Normal [facility] aPTT PPPon 08-27-2024 aPTT Coag (PPP) [Time] 44.7 s High 23.0-32.4 [facility] Comment on above: Order Comment: Speci men Type: BLOOD SPECIMENOrdering Facility: [facility] Address: [address] [place] [address] Performed By: #### 1 4979-9 ####[facility] LABORATORYCLIA [id number] [address] aPTT Coag (PPP) [Time] 67.2 s High 23.0-32.4 [facility] Comment on above: Order Comment: Speci men Type: BLOOD SPECIMENOrdering Facility: [facility] Address: [address] [place] [address] Performed By: #### 1 4979-9 ####[facility] LABORATORYCLIA [id number] [address] aPTT Coag (PPP) [Time] 81.8 s High 23.0-32.4 [facility] Comment on above: Order Comment: Speci men Type: BLOOD SPECIMENOrdering Facility: [facility] Address: [address] [place] [address] Performed By: #### 1 4979-9 ####[facility] LABORATORYCLIA [id number] [address] aPTT Coag (PPP) [Time] 60.0 s High 23.0-32.4 [facility] Comment on above: Order Comment: Speci men Type: BLOOD SPECIMENOrdering Facility: [facility] Address: [address] [place] [address] Performed By: #### 1 4979-9 ####[facility] LABORATORYCLIA [id number] [address] CASE MANAGEMon 08-26-2024 CASE MANAGEM Normal [facility] CBC panel Auto (Bld)on 08-26 Erythrocyte distribution width (RBC) [Ratio] 14.2 % Normal 11.5-15.0 [facility] Comment on above: Order Comment: Speci men Type: BLOOD SPECIMENOrdering Facility: [facility] Address: [address] [place] [address] Performed By: #### 5 8410-2 ####[facility] LABORATORYCLIA [id number] [address] Hematocrit (Bld) [Volume fraction] 36.9 % Low 39.0-51.0 [facility] Comment on above: Order Comment: Speci men Type: BLOOD SPECIMENOrdering Facility: [facility] Address: [address] [place] [address] Performed By: #### 5 8410-2 ####[facility] LABORATORYCLIA [id number] [address] STATES OF [facility] Hemoglobin (Bld) [Mass/Vol] 12.7 g/dL Low 13.0-17.0 [facility] Comment on above: Order Comment: Speci men Type: BLOOD SPECIMENOrdering Facility: [facility] Address: [address] [place] [address] Performed By: #### 5 8410-2 ####[facility] LABORATORYCLIA [id number] [address] [place] MCH (RBC) [Entitic mass] 30.5 pg Normal 26.0-34.0 [facility] Comment on above: Order Comment: Speci men Type: BLOOD SPECIMENOrdering Facility: [facility] Address: [address] [place] [address] Performed By: #### 5 8410-2 ####[facility] LABORATORYCLIA [id number] [address] [place] MCHC (RBC) [Mass/Vol] 34.4 g/dL Normal 30.5-36.0 [facility] Comment on above: Order Comment: Speci men Type: BLOOD SPECIMENOrdering Facility: [facility] Address: [address] [place] [address] Performed By: #### 5 8410-2 ####[facility] LABORATORYCLIA [id number] [address] [place] MCV (RBC) [Entitic vol] 88.7 fL Normal 80.0-100.0 [facility] Comment on above: Order Comment: Speci men Type: BLOOD SPECIMENOrdering Facility: [facility] Address: [address] [place] [address] Performed By: #### 5 8410-2 ####[facility] LABORATORYCLIA [id number] [place] [address] [place] Nucleated RBC (Bld) [#/Vol] 10*3/uL Normal <0.01 [facility] Comment on above: Order Comment: Speci men Type: BLOOD SPECIMENOrdering Facility: [facility] Address: [address] [place] [address] Performed By: #### 5 8410-2 ####[facility] LABORATORYCLIA [id number] [place] [address] [place] Platelet mean volume (Bld) [Entitic vol] 8.7 fL Low 9.0-12.7 [facility] Comment on above: Order Comment: Speci men Type: BLOOD SPECIMENOrdering Facility: [facility] Address: [address] [place] [address] Performed By: #### 5 8410-2 ####[facility] LABORATORYCLIA [id number] [address] [place] Platelets (Bld) [#/Vol] 226 10*3/uL Normal 150-400 [facility] Comment on above: Order Comment: Speci men Type: BLOOD SPECIMENOrdering Facility: [facility] Address: [address] [place] [address] Performed By: #### 5 8410-2 ####[facility] LABORATORYCLIA [id number] [address] [place] RBC (Bld) [#/Vol] 4.16 10*6/uL Low 4.20-6.00 [facility] Comment on above: Order Comment: Speci men Type: BLOOD SPECIMENOrdering Facility: [facility] Address: [address] [place] [address] Performed By: #### 5 8410-2 ####[facility] LABORATORYCLIA [id number] [address] [place] WBC (Bld) [#/Vol] 7.84 10*3/uL Normal 3.70-11.00 [facility] Comment on above: Order Comment: Speci men Type: BLOOD SPECIMENOrdering Facility: [facility] Address: [address] [place] [address] Performed By: #### 5 8410-2 ####[facility] LABORATORYCLIA [id number] [address] OF [facility] CONSULT PROGon 08-26-2024 CONSULT PROG Normal [facility] CONSULT PROG Normal [facility] NUTRITIONon 08-26-2024 NUTRITION Normal [facility] aPTT PPPon 08-26-2024 aPTT Coag (PPP) [Time] 46.1 s High 23.0-32.4 [facility] Comment on above: Order Comment: Speci men Type: BLOOD SPECIMENOrdering Facility: [facility] Address: [address] [place] [address] Performed By: #### 1 4979-9 ####[facility] LABORATORYCLIA [id number] [address] STATES [facility] aPTT Coag (PPP) [Time] 56.2 s High 23.0-32.4 [facility] Comment on above: Order Comment: Speci men Type: BLOOD SPECIMENOrdering Facility: [facility] Address: [address] [place] [address] Performed By: #### 1 4979-9 ####[facility] LABORATORYCLIA [id number] [address] STATES [facility] aPTT Coag (PPP) [Time] 70.2 s High 23.0-32.4 [facility] Comment on above: Order Comment: Speci men Type: BLOOD SPECIMENOrdering Facility: [facility] Address: [address] [place] [address] Performed By: #### 1 4979-9 ####[facility] LABORATORYCLIA [id number] [place] [address] [place] Basic metabolic 2000 panelon 08-25-2024 Anion gap [Moles/Vol] 9 mmol/L Normal 8-15 [facility] Comment on above: Order Comment: Speci men Type: BLOOD SPECIMENOrdering Facility: [facility] Address: [address] [place] [address] Performed By: #### 2 4321-2 ####[facility] LABORATORYCLIA [id number] [place] [address] [place] Calcium [Mass/Vol] 8.9 mg/dL Normal 8.5-10.2 [facility] Comment on above: Order Comment: Speci men Type: BLOOD SPECIMENOrdering Facility: [facility] Address: [address] [place] [address] Performed By: #### 2 4321-2 ####[facility] LABORATORYCLIA [id number] [place] [address] [place] Chloride [Moles/Vol] 101 mmol/L Normal 98-107 [facility] Comment on above: Order Comment: Speci men Type: BLOOD SPECIMENOrdering Facility: [facility] Address: [address] [place] [address] Performed By: #### 2 4321-2 ####[facility] LABORATORYCLIA [id number] [address] [place] CO2 [Moles/Vol] 23 mmol/L Normal 22-30 [facility] Comment on above: Order Comment: Speci men Type: BLOOD SPECIMENOrdering Facility: [facility] Address: [address] [place] [address] Performed By: #### 2 4321-2 ####[facility] LABORATORYCLIA [id number] [place] [address] [place] Creatinine [Mass/Vol] 1.10 mg/dL Normal 0.73-1.22 [facility] Comment on above: Order Comment: Speci men Type: BLOOD SPECIMENOrdering Facility: [facility] Address: [address] [place] [address] Performed By: #### 2 4321-2 ####[facility] LABORATORYCLIA [id number] [address] [place] Creatinine and Glomerular filtration rate.predicted panel (S/P/Bld) 73 mL/min/1.73m??? Normal >=60 [facility] Comment on above: Order Comment: Yojana riggins Type: BLOOD SPECIMENOrdering Facility: [facility] Address: [address] [place] [address] Result Comment: Apple mated Glomerular Filtration Rate [...] actual GFR. Performed By: #### 2 4321-2 ####[facility] LABORATORYCLIA [id number] [place] [address] [place] Glucose [Mass/Vol] 120 mg/dL High 74-99 [facility] Comment on above: Order Comment: Yojana riggins Type: BLOOD SPECIMENOrdering Facility: [facility] Address: [address] [place] [address] Result Comment: The [place] Diabetes [employer] (ADA) provides guidance for cutoff [...] Standards of Medical Care in Diabetes 2016, [place] [employer]. Diabetes Care. 2016.39(Suppl 1). Performed By: #### 2 4321-2 ####[facility] LABORATORYCLIA [id number] [place] [address] [place] Potassium [Moles/Vol] 3.8 mmol/L Normal 3.7-5.1 [facility] Comment on above: Order Comment: Yojana riggins Type: BLOOD SPECIMENOrdering Facility: [facility] Address: [address] [place] [address] Performed By: #### 2 4321-2 ####[facility] LABORATORYCLIA [id number] [address] STATES [facility] Sodium [Moles/Vol] 133 mmol/L Low 136-144 [facility] Comment on above: Order Comment: Speci men Type: BLOOD SPECIMENOrdering Facility: [facility] Address: [address] [place] [address] Performed By: #### 2 4321-2 ####[facility] LABORATORYCLIA [id number] [address] STATES [facility] Urea nitrogen [Mass/Vol] 24 mg/dL Normal 9-24 [facility] Comment on above: Order Comment: Speci men Type: BLOOD SPECIMENOrdering Facility: [facility] Address: [address] [place] [address] Performed By: #### 2 4321-2 ####[facility] LABORATORYCLIA [id number] [address] CBC panel Auto (Bld)on 08-25 Erythrocyte distribution width (RBC) [Ratio] 13.9 % Normal 11.5-15.0 [facility] Comment on above: Order Comment: Speci men Type: BLOOD SPECIMENOrdering Facility: [facility] Address: [address] [place] [address] Performed By: #### 5 8410-2 ####[facility] LABORATORYCLIA [id number] [address] Hematocrit (Bld) [Volume fraction] 35.0 % Low 39.0-51.0 [facility] Comment on above: Order Comment: Speci men Type: BLOOD SPECIMENOrdering Facility: [facility] Address: [address] [place] [address] Performed By: #### 5 8410-2 ####[facility] LABORATORYCLIA [id number] [address] Hemoglobin (Bld) [Mass/Vol] 11.9 g/dL Low 13.0-17.0 [facility] Comment on above: Order Comment: Speci men Type: BLOOD SPECIMENOrdering Facility: [facility] Address: [address] [place] [address] Performed By: #### 5 8410-2 ####[facility] LABORATORYCLIA [id number] [address] MCH (RBC) [Entitic mass] 30.5 pg Normal 26.0-34.0 [facility] Comment on above: Order Comment: Speci men Type: BLOOD SPECIMENOrdering Facility: [facility] Address: [address] [place] [address] Performed By: #### 5 8410-2 ####[facility] LABORATORYCLIA [id number] [address] MCHC (RBC) [Mass/Vol] 34.0 g/dL Normal 30.5-36.0 [facility] Comment on above: Order Comment: Speci men Type: BLOOD SPECIMENOrdering Facility: [facility] Address: [address] [place] [address] Performed By: #### 5 8410-2 ####[facility] LABORATORYCLIA [id number] [address] MCV (RBC) [Entitic vol] 89.7 fL Normal 80.0-100.0 [facility] Comment on above: Order Comment: Speci men Type: BLOOD SPECIMENOrdering Facility: [facility] Address: [address] [place] [address] Performed By: #### 5 8410-2 ####[facility] LABORATORYCLIA [id number] [address] Nucleated RBC (Bld) [#/Vol] 10*3/uL Normal <0.01 [facility] Comment on above: Order Comment: Speci men Type: BLOOD SPECIMENOrdering Facility: [facility] Address: [address] [place] [address] Performed By: #### 5 8410-2 ####[facility] LABORATORYCLIA [id number] [address] Platelet mean volume (Bld) [Entitic vol] 8.7 fL Low 9.0-12.7 [facility] Comment on above: Order Comment: Speci men Type: BLOOD SPECIMENOrdering Facility: [facility] Address: [address] [place] [address] Performed By: #### 5 8410-2 ####[facility] LABORATORYCLIA [id number] [place] [address] [place] Platelets (Bld) [#/Vol] 205 10*3/uL Normal 150-400 [facility] Comment on above: Order Comment: Speci men Type: BLOOD SPECIMENOrdering Facility: [facility] Address: [address] [place] [address] Performed By: #### 5 8410-2 ####[facility] LABORATORYCLIA [id number] [place] [address] [place] RBC (Bld) [#/Vol] 3.90 10*6/uL Low 4.20-6.00 [facility] Comment on above: Order Comment: Speci men Type: BLOOD SPECIMENOrdering Facility: [facility] Address: [address] [place] [address] Performed By: #### 5 8410-2 ####[facility] LABORATORYCLIA [id number] [address] [place] WBC (Bld) [#/Vol] 7.45 10*3/uL Normal 3.70-11.00 [facility] Comment on above: Order Comment: Speci men Type: BLOOD SPECIMENOrdering Facility: [facility] Address: [address] [place] [address] Performed By: #### 5 8410-2 ####[facility] LABORATORYCLIA [id number] [address] [place] CONSULT PROGon 08-25-2024 CONSULT PROG Normal [facility] CONSULT PROG Normal [facility] TYPE + SCREENon 08-25-2024 ABO O Normal [facility] Comment on above: Order Comment: Speci men Type: BLOOD SPECIMENOrdering Facility: [facility] Address: [address] [place] [address] Performed By: #### T SCR ####[facility] BLOOD BANKCLIA [id number] [address] Rh Nom (Bld) Positive Normal [facility] Comment on above: Order Comment: Speci men Type: BLOOD SPECIMENOrdering Facility: [facility] Address: [address] [place] [address] Performed By: #### T SCR ####[facility] BLOOD BANKCLIA [id number] [address] TYPE AND SCREEN EXPIRATION 08/28/2024 23:59 Normal [facility] Comment on above: Order Comment: Speci men Type: BLOOD SPECIMENOrdering Facility: [facility] Address: [address] [place] [address] Performed By: #### T SCR ####[facility] BLOOD BANKCLIA [id number] [address] [place] aPTT PPPon 08-25-2024 aPTT Coag (PPP) [Time] 50.8 s High 23.0-32.4 [facility] Comment on above: Order Comment: Speci men Type: BLOOD SPECIMENOrdering Facility: [facility] Address: [address] [place] [address] Performed By: #### 1 4979-9 ####[facility] LABORATORYCLIA [id number] [address] [place] aPTT Coag (PPP) [Time] 53.7 s High 23.0-32.4 [facility] Comment on above: Order Comment: Speci men Type: BLOOD SPECIMENOrdering Facility: [facility] Address: [address] [place] [address] Performed By: #### 1 4979-9 ####[facility] LABORATORYCLIA [id number] [address] aPTT Coag (PPP) [Time] 73.9 s High 23.0-32.4 [facility] Comment on above: Order Comment: Speci men Type: BLOOD SPECIMENOrdering Facility: [facility] Address: [address] [place] [address] Performed By: #### 1 4979-9 ####[facility] LABORATORYCLIA [id number] [place] [address] [place] Basic metabolic 2000 panelon 08-24-2024 Anion gap [Moles/Vol] 14 mmol/L Normal 8-15 [facility] Comment on above: Order Comment: Speci men Type: BLOOD SPECIMENOrdering Facility: [facility] Address: [address] [place] [address] Performed By: #### 2 4321-2, , 2776-04 ####[facility] LABORATORYCLIA [id number] [place] [address] [place] Calcium [Mass/Vol] 9.3 mg/dL Normal 8.5-10.2 [facility] Comment on above: Order Comment: Speci men Type: BLOOD SPECIMENOrdering Facility: [facility] Address: [address] [place] [address] Performed By: #### 2 4321-2, , 2776-04 ####[facility] LABORATORYCLIA [id number] [place] [address] [place] Chloride [Moles/Vol] 98 mmol/L Normal 98-107 [facility] Comment on above: Order Comment: Speci men Type: BLOOD SPECIMENOrdering Facility: [facility] Address: [address] [place] [address] Performed By: #### 2 4321-2, , 2776-04 ####[facility] LABORATORYCLIA [id number] [place] [address] [place] CO2 [Moles/Vol] 21 mmol/L Low 22-30 [facility] Comment on above: Order Comment: Speci men Type: BLOOD SPECIMENOrdering Facility: [facility] Address: [address] [place] [address] Performed By: #### 2 4321-2, 01508-12776-04 ####[facility]OSPITALIA [id number] [place] [address] [place] Creatinine [Mass/Vol] 1.19 mg/dL Normal 0.73-1.22 [facility] Comment on above: Order Comment: Yojana gilson Type: BLOOD SPECIMENOrdering Facility: [facility] Address: [address] [place] [address] Performed By: #### 2 4321-2, , 2776-04 ####[facility] HOSPITALIA [id number] [place] [id number] [facility] Creatinine and Glomerular filtration rate.predicted panel (S/P/Bld) 66 mL/min/1.73m??? Normal >=60 [facility] Comment on above: Order Comment: Yojana [facility] Type: BLOOD SPECIMENOrdering Facility: [facility] Address: [address] [place] [address] Result Comment: Apple mated Glomerular Filtration Rate [...] Performed By: #### 2 4321-2, , 2776-04 ####[facility] HOSPITALIA [id number] [place] [address] [place] Glucose [Mass/Vol] 107 mg/dL High 74-99 [facility] Comment on above: Order Comment: Simranadonis riggins Type: BLOOD SPECIMENOrdering Facility: [facility] Address: [address] [place] [address] Result Comment: The [place] Diabetes Association (ADA) provides guidance for cutoff [...] Standards of Medical Care in Diabetes 2016, [place] [employer]. Diabetes Care. 2016.39(Suppl 1). Performed By: #### 2 4321-2, , 2776-04 ####[facility] LABORATORYCLIA [id number] [place] [address] [place] Potassium [Moles/Vol] 4.2 mmol/L Normal 3.7-5.1 [facility] Comment on above: Order Comment: Simrani gilson Type: BLOOD SPECIMENOrdering Facility: [facility] Address: [address] [place] [address] Performed By: #### 2 4321-2, , 2776-04 ####[facility] LABORATORYCLIA [id number] [address] STATES OF [facility] Sodium [Moles/Vol] 133 mmol/L Low 136-144 [facility] Comment on above: Order Comment: Simrani gilsno Type: BLOOD SPECIMENOrdering Facility: [facility] Address: [address] [place] [address] Performed By: #### 2 4321-2, , 2776-04 ####[facility] LABORATORYCLIA [id number] [address] [place] Urea nitrogen [Mass/Vol] 27 mg/dL High 9-24 [facility] Comment on above: Order Comment: Speci men Type: BLOOD SPECIMENOrdering Facility: [facility] Address: [address] [place] [address] Performed By: #### 2 4321-2, , 2776-04 ####[facility] LABORATORYCLIA [id number] [place] [address] [place] CBC W Auto Differential pane l (Bld)on 08-24-2024 Basophils (Bld) [#/Vol] 0.03 10*3/uL Normal <0.11 [facility] Comment on above: Order Comment: Speci men Type: BLOOD SPECIMENOrdering Facility: [facility] Address: [address] [place] [address] Performed By: #### 5 7021-8 ####[facility]ORATORYCLIA [id number] [address] STATES OF [facility] Basophils/100 WBC (Bld) 0.3 % Normal A [facility] Comment on above: Order Comment: Speci men Type: BLOOD SPECIMENOrdering Facility: [facility] Address: [address] [place] [address] Performed By: #### 5 7021-8 ####[facility]ORATORYCLIA [id number] [address] Differential cell count method Nom (Bld) Auto Normal [facility] Comment on above: Order Comment: Speci men Type: BLOOD SPECIMENOrdering Facility: [facility] Address: [address] [place] [address] Performed By: #### 5 7021-8 ####[facility]ORATORYCLIA [id number] [address] STATES OF [facility] Eosinophils (Bld) [#/Vol] 0.18 10*3/uL Normal <0.46 [facility] Comment on above: Order Comment: Speci men Type: BLOOD SPECIMENOrdering Facility: [facility] Address: [address] [place] [address] Performed By: #### 5 7021-8 ####[facility]ORATORYCLIA [id number] [address] Eosinophils/100 WBC (Bld) 1.9 % Normal [facility] Comment on above: Order Comment: Speci men Type: BLOOD SPECIMENOrdering Facility: [facility] Address: [address] [place] [address] Performed By: #### 5 7021-8 ####[facility]ORATORYCLIA [id number] [address] Erythrocyte distribution width (RBC) [Ratio] 14.0 % Normal 11.5-15.0 [facility] Comment on above: Order Comment: Speci men Type: BLOOD SPECIMENOrdering Facility: [facility] Address: [address] [place] [address] Performed By: #### 5 7021-8 ####[facility] LABORATORYCLIA [id number] [address] [place] Hematocrit (Bld) [Volume fraction] 37.7 % Low 39.0-51.0 [facility] Comment on above: Order Comment: Speci men Type: BLOOD SPECIMENOrdering Facility: [facility] Address: [address] [place] [address] Performed By: #### 5 7021-8 ####[facility] LABORATORYCLIA [id number] [address] [place] Hemoglobin (Bld) [Mass/Vol] 12.7 g/dL Low 13.0-17.0 [facility] Comment on above: Order Comment: Speci men Type: BLOOD SPECIMENOrdering Facility: [facility] Address: [address] [place] [address] Performed By: #### 5 7021-8 ####[facility] LABORATORYCLIA [id number] [address] [place] Immature granulocytes (Bld) [#/Vol] 0.04 10*3/uL Normal <0.10 [facility] Comment on above: Order Comment: Speci men Type: BLOOD SPECIMENOrdering Facility: [facility] Address: [address] [place] [address] Performed By: #### 5 7021-8 ####[facility] LABORATORYCLIA [id number] [address] [place] Immature granulocytes/100 WBC (Bld) 0.4 % Normal [facility] Comment on above: Order Comment: Speci men Type: BLOOD SPECIMENOrdering Facility: [facility] Address: [address] [place] [address] Performed By: #### 5 7021-8 ####[facility] LABORATORYCLIA [id number] [address] [place] Lymphocytes (Bld) [#/Vol] 1.23 10*3/uL Normal 1.00-4.00 [facility] Comment on above: Order Comment: Speci men Type: BLOOD SPECIMENOrdering Facility: [facility] Address: [address] [place] [address] Performed By: #### 5 7021-8 ####[facility] LABORATORYCLIA [id number] [address] [facility] Lymphocytes/100 WBC (Bld) 12.9 % [facility] [facility] Comment on above: Order Comment: Speci men Type: BLOOD SPECIMENOrdering Facility: [facility] Address: [address] [place] [address] Performed By: #### 5 7021-8 ####[facility] LABORATORYCLIA [id number] [address] [place] MCH (RBC) [Entitic mass] 30.3 pg Normal 26.0-34.0 [facility] Comment on above: Order Comment: Speci men Type: BLOOD SPECIMENOrdering Facility: [facility] Address: [address] [place] [address] Performed By: #### 5 7021-8 ####[facility] LABORATORYCLIA [id number] [address] [place] MCHC (RBC) [Mass/Vol] 33.7 g/dL Normal 30.5-36.0 [facility] Comment on above: Order Comment: Speci men Type: BLOOD SPECIMENOrdering Facility: [facility] Address: [address] [place] [address] Performed By: #### 5 7021-8 ####[facility] LABORATORYCLIA [id number] [address] [place] [facility] MCV (RBC) [Entitic vol] 90.0 fL Normal 80.0-100.0 [facility] Comment on above: Order Comment: Speci men Type: BLOOD SPECIMENOrdering Facility: [facility] Address: [address] [place] [address] Performed By: #### 5 7021-8 ####[facility] LABORATORYCLIA [id number] [address] [place] Monocytes (Bld) [#/Vol] 0.83 10*3/uL Normal <0.87 [facility] Comment on above: Order Comment: Speci men Type: BLOOD SPECIMENOrdering Facility: [facility] Address: [address] [place] [address] Performed By: #### 5 7021-8 ####[facility]ORATORYCLIA [id number] [address] [place] Monocytes/100 WBC (Bld) 8.7 % Normal A [facility] Comment on above: Order Comment: Speci men Type: BLOOD SPECIMENOrdering Facility: [facility] Address: [address] [place] [address] Performed By: #### 5 7021-8 ####[facility]ORATORYCLIA [id number] [address] [place] Neutrophils (Bld) [#/Vol] 7.26 10*3/uL Normal 1.45-7.50 [facility] Comment on above: Order Comment: Speci men Type: BLOOD SPECIMENOrdering Facility: [facility] Address: [address] [place] [address] Performed By: #### 5 7021-8 ####[facility]ORATORYCLIA [id number] [address] [place] Neutrophils/100 WBC (Bld) 75.8 % Normal [facility] Comment on above: Order Comment: Speci men Type: BLOOD SPECIMENOrdering Facility: [facility] Address: [address] [place] [address] Performed By: #### 5 7021-8 ####[facility]ORATORYCLIA [id number] [place] [address] [place] Nucleated RBC (Bld) [#/Vol] 10*3/uL Normal <0.01 [facility] Comment on above: Order Comment: Speci men Type: BLOOD SPECIMENOrdering Facility: [facility] Address: [address] [place] [address] Performed By: #### 5 7021-8 ####[facility] LABORATORYCLIA [id number] [address] [place] Nucleated RBC/100 WBC (Bld) [Ratio] 0.0 /100 WBC Normal [facility] Comment on above: Order Comment: Speci men Type: BLOOD SPECIMENOrdering Facility: [facility] Address: [address] [place] [address] Performed By: #### 5 7021-8 ####[facility] LABORATORYCLIA [id number] [place] [address] [place] Platelet mean volume (Bld) [Entitic vol] 8.8 fL Low 9.0-12.7 [facility] Comment on above: Order Comment: Speci men Type: BLOOD SPECIMENOrdering Facility: [facility] Address: [address] [place] [address] Performed By: #### 5 7021-8 ####[facility] LABORATORYCLIA [id number] [place] [address] [place] Platelets (Bld) [#/Vol] 252 10*3/uL Normal 150-400 [facility] Comment on above: Order Comment: Speci men Type: BLOOD SPECIMENOrdering Facility: [facility] Address: [address] [place] [address] Performed By: #### 5 7021-8 ####[facility] LABORATORYCLIA [id number] [place] [address] [place] RBC (Bld) [#/Vol] 4.19 10*6/uL Low 4.20-6.00 [facility] Comment on above: Order Comment: Speci men Type: BLOOD SPECIMENOrdering Facility: [facility] Address: [address] [place] [address] Performed By: #### 5 7021-8 ####[facility] LABORATORYCLIA [id number] [address] [place] WBC (Bld) [#/Vol] 9.57 10*3/uL Normal 3.70-11.00 [facility] Comment on above: Order Comment: Speci men Type: BLOOD SPECIMENOrdering Facility: [facility] Address: [address] [place] [address] Performed By: #### 5 7021-8 ####[facility] LABORATORYCLIA [id number] [address] [place] CONSULTon 08-24-2024 CONSULT Normal [facility] CONSULT PROGon 08-24-2024 CONSULT PROG Normal [facility] CONSULT PROG Normal [facility] Magnesium SerPl-ncon 08-24 Magnesium [Mass/Vol] 2.0 mg/dL Normal 1.7-2.3 [facility] Comment on above: Order Comment: Speci men Type: BLOOD SPECIMENOrdering Facility: [facility] Address: [address] [place] [address] Performed By: #### 2 4321-2, , 2776-04 ####[facility] LABORATORYCLIA [id number] [address] [place] Phosphate SerPl-mCncon 08-24 Phosphate [Mass/Vol] 3.8 mg/dL Normal 2.7-4.8 [facility] Comment on above: Order Comment: Speci men Type: BLOOD SPECIMENOrdering Facility: [facility] Address: [address] [place] [address] Performed By: #### 2 4321-2, , 2776-04 ####[facility] LABORATORYCLIA [id number] [address] [place] XR ABDOMEN 1V SUPINEon 08-24 XR ABDOMEN 1V SUPINE Normal [facility] XR CHEST 2V FRONTAL/LATon XR CHEST 2V FRONTAL/LAT Normal A [facility] aPTT PPPon 08-24-2024 aPTT Coag (PPP) [Time] 57.4 s High 23.0-32.4 [facility] Comment on above: Order Comment: Speci men Type: BLOOD SPECIMENOrdering Facility: [facility] Address: [address] [place] [address] Performed By: #### 1 4979-9 ####[facility] LABORATORYCLIA [id number] [address] aPTT Coag (PPP) [Time] 67.5 s High 23.0-32.4 [facility] Comment on above: Order Comment: Speci men Type: BLOOD SPECIMENOrdering Facility: [facility] Address: [address] [place] [address] Performed By: #### 1 4979-9 ####[facility] LABORATORYCLIA [id number] [address] aPTT Coag (PPP) [Time] s High 23.0-32.4 [facility] Comment on above: Order Comment: Speci men Type: BLOOD SPECIMENOrdering Facility: [facility] Address: [address] [place] [address] Performed By: #### 1 4979-9 ####[facility] LABORATORYCLIA [id number] [address] aPTT Coag (PPP) [Time] 64.9 s High 23.0-32.4 [facility] Comment on above: Order Comment: Speci men Type: BLOOD SPECIMENOrdering Facility: [facility] Address: [address] [place] [address] Performed By: #### 1 4979-9 ####[facility] LABORATORYCLIA [id number] [address] OF [facility] Basic metabolic 2000 panelon 08-23-2024 Anion gap [Moles/Vol] 12 mmol/L Normal 8-15 [facility] Comment on above: Order Comment: Speci men Type: BLOOD SPECIMENOrdering Facility: [facility] Address: [address] [place] [address] Performed By: #### 2 4321-2 ####[facility] LABORATORYCLIA [id number] [address] [place] Calcium [Mass/Vol] 9.1 mg/dL Normal 8.5-10.2 [facility] Comment on above: Order Comment: Speci men Type: BLOOD SPECIMENOrdering Facility: [facility] Address: [address] [place] [address] Performed By: #### 2 4321-2 ####[facility] LABORATORYCLIA [id number] [place] [address] [place] Chloride [Moles/Vol] 97 mmol/L Low 98-107 [facility] Comment on above: Order Comment: Speci men Type: BLOOD SPECIMENOrdering Facility: [facility] Address: [address] [place] [address] Performed By: #### 2 4321-2 ####[facility] LABORATORYCLIA [id number] [address] [place] CO2 [Moles/Vol] 21 mmol/L Low 22-30 [facility] Comment on above: Order Comment: Speci men Type: BLOOD SPECIMENOrdering Facility: [facility] Address: [address] [place] [address] Performed By: #### 2 4321-2 ####[facility] LABORATORYCLIA [id number] [address] [place] Creatinine [Mass/Vol] 1.12 mg/dL Normal 0.73-1.22 [facility] Comment on above: Order Comment: Speci men Type: BLOOD SPECIMENOrdering Facility: [facility] Address: [address] [place] [address] Performed By: #### 2 4321-2 ####[facility] LABORATORYCLIA [id number] [address] [place] Creatinine and Glomerular filtration rate.predicted panel (S/P/Bld) 71 mL/min/1.73m??? Normal >=60 [facility] Comment on above: Order Comment: Speci men Type: BLOOD SPECIMENOrdering Facility: [facility] Address: [address] [place] [address] Result Comment: Apple mated Glomerular Filtration Rate [...] actual GFR. Performed By: #### 2 4321-2 ####[facility] LABORATORYCLIA [id number] [place] [address] [place] Glucose [Mass/Vol] 147 mg/dL High 74-99 [facility] Comment on above: Order Comment: Yojana riggins Type: BLOOD SPECIMENOrdering Facility: [facility] Address: [address] [place] [address] Result Comment: The [place] [employer] (ADA) provides guidance for cutoff [...] Standards of Medical Care in Diabetes 2016, [place] [employer]. Diabetes Care. 2016.39(Suppl 1). Performed By: #### 2 4321-2 ####[facility] LABORATORYCLIA [id number] [place] [address] [place] Potassium [Moles/Vol] 4.6 mmol/L Normal 3.7-5.1 [facility] Comment on above: Order Comment: Yojana riggins Type: BLOOD SPECIMENOrdering Facility: [facility] Address: [address] [id number] Performed By: #### 2 4321-2 ####[facility] LABORATORYCLIA [id number] [place] [address] [place] Sodium [Moles/Vol] 130 mmol/L Low 136-144 [facility] Comment on above: Order Comment: Speci men Type: BLOOD SPECIMENOrdering Facility: [facility] Address: [address] [place] [address] Performed By: #### 2 4321-2 ####[facility] LABORATORYCLIA [id number] [address] [place] Urea nitrogen [Mass/Vol] 24 mg/dL Normal 9-24 [facility] Comment on above: Order Comment: Speci men Type: BLOOD SPECIMENOrdering Facility: [facility] Address: [address] [place] [address] Performed By: #### 2 4321-2 ####[facility] LABORATORYCLIA [id number] [address] [place] CASE MANAGEMon 08-23-2024 CASE MANAGEM Normal [facility] CBC panel Auto (Bld)on 08-23 Erythrocyte distribution width (RBC) [Ratio] 13.6 % Normal 11.5-15.0 [facility] Comment on above: Order Comment: Speci men Type: BLOOD SPECIMENOrdering Facility: [facility] Address: [address] [place] [address] Performed By: #### 5 8410-2 ####[facility] LABORATORYCLIA [id number] [address] [place] Hematocrit (Bld) [Volume fraction] 39.3 % Normal 39.0-51.0 [facility] Comment on above: Order Comment: Speci men Type: BLOOD SPECIMENOrdering Facility: [facility] Address: [address] [place] [address] Performed By: #### 5 8410-2 ####[facility] LABORATORYCLIA [id number] [address] [place] Hemoglobin (Bld) [Mass/Vol] 13.2 g/dL Normal 13.0-17.0 [facility] Comment on above: Order Comment: Speci men Type: BLOOD SPECIMENOrdering Facility: [facility] Address: [address] [place] [address] Performed By: #### 5 8410-2 ####[facility] LABORATORYCLIA [id number] [address] MCH (RBC) [Entitic mass] 30.1 pg Normal 26.0-34.0 [facility] Comment on above: Order Comment: Speci men Type: BLOOD SPECIMENOrdering Facility: [facility] Address: [address] [place] [address] Performed By: #### 5 8410-2 ####[facility] LABORATORYCLIA [id number] [address] MCHC (RBC) [Mass/Vol] 33.6 g/dL Normal 30.5-36.0 [facility] Comment on above: Order Comment: Speci men Type: BLOOD SPECIMENOrdering Facility: [facility] Address: [address] [place] [address] Performed By: #### 5 8410-2 ####[facility] LABORATORYCLIA [id number] [address] MCV (RBC) [Entitic vol] 89.5 fL Normal 80.0-100.0 [facility] Comment on above: Order Comment: Speci men Type: BLOOD SPECIMENOrdering Facility: [facility] Address: [address] [place] [address] Performed By: #### 5 8410-2 ####[facility] LABORATORYCLIA [id number] [address] Nucleated RBC (Bld) [#/Vol] 10*3/uL Normal <0.01 [facility] Comment on above: Order Comment: Speci men Type: BLOOD SPECIMENOrdering Facility: [facility] Address: [address] [place] [address] Performed By: #### 5 8410-2 ####[facility] LABORATORYCLIA [id number] [address] Platelet mean volume (Bld) [Entitic vol] 8.5 fL Low 9.0-12.7 [facility] Comment on above: Order Comment: Speci men Type: BLOOD SPECIMENOrdering Facility: [facility] Address: [address] [place] [address] Performed By: #### 5 8410-2 ####[facility] LABORATORYCLIA [id number] [address] [place] Platelets (Bld) [#/Vol] 195 10*3/uL Normal 150-400 [facility] Comment on above: Order Comment: Speci men Type: BLOOD SPECIMENOrdering Facility: [facility] Address: [address] [place] [address] Performed By: #### 5 8410-2 ####[facility] LABORATORYCLIA [id number] [address] [place] RBC (Bld) [#/Vol] 4.39 10*6/uL Normal 4.20-6.00 [facility] Comment on above: Order Comment: Speci men Type: BLOOD SPECIMENOrdering Facility: [facility] Address: [address] [place] [address] Performed By: #### 5 8410-2 ####[facility] LABORATORYCLIA [id number] [address] OF [facility] WBC (Bld) [#/Vol] 8.38 10*3/uL Normal 3.70-11.00 [facility] Comment on above: Order Comment: Speci men Type: BLOOD SPECIMENOrdering Facility: [facility] Address: [address] [place] [address] Performed By: #### 5 8410-2 ####[facility] LABORATORYCLIA [id number] [address] [place] CONSULT PROGon 08-23-2024 CONSULT PROG Normal [facility] CONSULT PROG Normal [facility] Hematocrit Auto (Bld) [Volum e fraction]on 08-23-2024 Hematocrit (Bld) [Volume fraction] 38.4 % Low 39.0-51.0 [facility] Comment on above: Order Comment: Speci men Type: BLOOD SPECIMENOrdering Facility: [facility] Address: [address] [place] [address] Performed By: #### 4 544-3, 718-7 ####[facility] LABORATORYCLIA [id number] [address] Hgb Bld-mCncon 08-23-2024 Hemoglobin (Bld) [Mass/Vol] 12.7 g/dL Low 13.0-17.0 [facility] Comment on above: Order Comment: Speci men Type: BLOOD SPECIMENOrdering Facility: [facility] Address: [address] [place] [address] Performed By: #### 4 544-3, 718-7 ####[facility] LABORATORYCLIA [id number] [address] NUTRITIONon 08-23-2024 NUTRITION Normal [facility] aPTT PPPon 08-23-2024 aPTT Coag (PPP) [Time] 88.7 s High 23.0-32.4 [facility] Comment on above: Order Comment: Speci men Type: BLOOD SPECIMENOrdering Facility: [facility] Address: [address] [place] [address] Performed By: #### 1 4979-9 ####[facility] [id number] [address] aPTT Coag (PPP) [Time] s High 23.0-32.4 [facility] Comment on above: Order Comment: Speci men Type: BLOOD SPECIMENOrdering Facility: [facility] Address: [address] [place] [address] Performed By: #### 1 4979-9 ####[facility] LABORATORYCLIA [id number] [address] aPTT Coag (PPP) [Time] 39.0 s High 23.0-32.4 [facility] Comment on above: Order Comment: Speci men Type: BLOOD SPECIMENOrdering Facility: [facility] Address: [address] [place] [address] Performed By: #### 1 4979-9 ####[facility] LABORATORYCLIA [id number] [place] [id number] [place] aPTT Coag (PPP) [Time] 69.1 s High 23.0-32.4 [facility] Comment on above: Order Comment: Speci men Type: BLOOD SPECIMENOrdering Facility: [facility] Address: [address] [place] [address] Performed By: #### 1 4979-9 ####[facility] LABORATORYCLIA [id number] [place] [address] [place] ALLIED HEALTHon 08-22-2024 ALLIED HEALTH Normal [facility] Basic metabolic 2000 panelon 08-22-2024 Anion gap [Moles/Vol] 10 mmol/L Normal 8-15 [facility] Comment on above: Order Comment: Speci men Type: BLOOD SPECIMENOrdering Facility: [facility] Address: [address] [place] [address] Performed By: #### 2 4321-2 ####[facility] LABORATORYCLIA [id number] [place] [address] [place] Calcium [Mass/Vol] 9.3 mg/dL Normal 8.5-10.2 [facility] Comment on above: Order Comment: Speci men Type: BLOOD SPECIMENOrdering Facility: [facility] Address: [address] [place] [address] Performed By: #### 2 4321-2 ####[facility] LABORATORYCLIA [id number] [place] [address] [place] Chloride [Moles/Vol] 98 mmol/L Normal 98-107 [facility] Comment on above: Order Comment: Speci men Type: BLOOD SPECIMENOrdering Facility: [facility] Address: [address] [place] [address] Performed By: #### 2 4321-2 ####[facility] LABORATORYCLIA [id number] [place] [address] [place] CO2 [Moles/Vol] 23 mmol/L Normal 22-30 [facility] Comment on above: Order Comment: Speci men Type: BLOOD SPECIMENOrdering Facility: [facility] Address: [address] [place] [address] Performed By: #### 2 4321-2 ####[facility]CLIA [id number] [place] [id number] [place] Creatinine [Mass/Vol] 1.16 mg/dL Normal 0.73-1.22 [facility] Comment on above: Order Comment: Simranadonis riggins Type: BLOOD SPECIMENOrdering Facility: [facility] Address: [address] [place] [address] Performed By: #### 2 4321-2 ####[facility] LABORATORYCLIA [id number] [address] Creatinine and Glomerular filtration rate.predicted panel (S/P/Bld) 68 mL/min/1.73m??? Normal >=60 [facility] Comment on above: Order Comment: Yojana gilson Type: BLOOD SPECIMENOrdering Facility: [facility] Address: [address] [place] [address] Result Comment: Apple mated Glomerular Filtration Rate [...] actual GFR. Performed By: #### 2 4321-2 ####[facility] LABORATORYCLIA [id number] [address] [place] Glucose [Mass/Vol] 153 mg/dL High 74-99 [facility] Comment on above: Order Comment: Yojana riggins Type: BLOOD SPECIMENOrdering Facility: [facility] Address: [address] [place] [address] Result Comment: The [place] Diabetes [employer] (ADA) provides guidance for cutoff [...] Standards of Medical Care in Diabetes 2016, [place] [employer]. Diabetes Care. 2016.39(Suppl 1). Performed By: #### 2 4321-2 ####[facility] LABORATORYCLIA [id number] [address] Potassium [Moles/Vol] 4.2 mmol/L Normal 3.7-5.1 [facility] Comment on above: Order Comment: Simrani gilson Type: BLOOD SPECIMENOrdering Facility: [facility] Address: [address] [place] [address] Performed By: #### 2 4321-2 ####[facility] [id number] [address] Sodium [Moles/Vol] 131 mmol/L Low 136-144 [facility] Comment on above: Order Comment: Simrani gilson Type: BLOOD SPECIMENOrdering Facility: [facility] Address: [address] [place] [address] Performed By: #### 2 4321-2 ####[facility] [id number] [address] Urea nitrogen [Mass/Vol] 23 mg/dL Normal 9-24 [facility] Comment on above: Order Comment: Simrani gilson Type: BLOOD SPECIMENOrdering Facility: [facility] Address: [address] [place] [address] Performed By: #### 2 4321-2 ####[facility] LABORATORYCLIA [id number] [address] OF [facility] CBC panel Auto (Bld)on 08-22 Erythrocyte distribution width (RBC) [Ratio] 13.9 % Normal 11.5-15.0 [facility] Comment on above: Order Comment: Speci men Type: BLOOD SPECIMENOrdering Facility: [facility] Address: [address] [place] [address] Performed By: #### 5 8410-2 ####[facility] LABORATORYCLIA [id number] [address] Hematocrit (Bld) [Volume fraction] 40.6 % Normal 39.0-51.0 [facility] Comment on above: Order Comment: Speci men Type: BLOOD SPECIMENOrdering Facility: [facility] Address: [address] [place] [address] Performed By: #### 5 8410-2 ####[facility] LABORATORYCLIA [id number] [address] Hemoglobin (Bld) [Mass/Vol] 13.7 g/dL Normal 13.0-17.0 [facility] Comment on above: Order Comment: Speci men Type: BLOOD SPECIMENOrdering Facility: [facility] Address: [address] [place] [address] Performed By: #### 5 8410-2 ####[facility] LABORATORYCLIA [id number] [address] STATES [facility] MCH (RBC) [Entitic mass] 30.5 pg Normal 26.0-34.0 [facility] Comment on above: Order Comment: Speci men Type: BLOOD SPECIMENOrdering Facility: [facility] Address: [address] [place] [address] Performed By: #### 5 8410-2 ####[facility] LABORATORYCLIA [id number] [address] [facility] (RBC) [Mass/Vol] 33.7 g/dL Normal 30.5-36.0 [facility] Comment on above: Order Comment: Speci men Type: BLOOD SPECIMENOrdering Facility: [facility] Address: [address] [place] [address] Performed By: #### 5 8410-2 ####[facility] [facility]ORATORYCLIA [id number] [address] MCV (RBC) [Entitic vol] 90.4 fL Normal 80.0-100.0 [facility] Comment on above: Order Comment: Speci men Type: BLOOD SPECIMENOrdering Facility: [facility] Address: [address] [place] [address] Performed By: #### 5 8410-2 ####[facility] LABORATORYCLIA [id number] [address] [place] Nucleated RBC (Bld) [#/Vol] 10*3/uL Normal <0.01 [facility] Comment on above: Order Comment: Speci men Type: BLOOD SPECIMENOrdering Facility: [facility] Address: [address] [place] [address] Performed By: #### 5 8410-2 ####[facility] LABORATORYCLIA [id number] [address] [place] Platelet mean volume (Bld) [Entitic vol] 8.9 fL Low 9.0-12.7 [facility] Comment on above: Order Comment: Speci men Type: BLOOD SPECIMENOrdering Facility: [facility] Address: [address] [place] [address] Performed By: #### 5 8410-2 ####[facility] LABORATORYCLIA [id number] [address] [place] Platelets (Bld) [#/Vol] 208 10*3/uL Normal 150-400 [facility] Comment on above: Order Comment: Speci men Type: BLOOD SPECIMENOrdering Facility: [facility] Address: [address] [place] [address] Performed By: #### 5 8410-2 ####[facility] LABORATORYCLIA [id number] [place] [address] [place] RBC (Bld) [#/Vol] 4.49 10*6/uL Normal 4.20-6.00 [facility] Comment on above: Order Comment: Speci men Type: BLOOD SPECIMENOrdering Facility: [facility] Address: [address] [place] [address] Performed By: #### 5 8410-2 ####[facility]ORATORYCLIA [id number] [place] [address] [place] WBC (Bld) [#/Vol] 8.44 10*3/uL Normal 3.70-11.00 [facility] Comment on above: Order Comment: Speci men Type: BLOOD SPECIMENOrdering Facility: [facility] Address: [address] [place] [address] Performed By: #### 5 8410-2 ####[facility]ORATORYCLIA [id number] [place] [address] [place] CNCOon 08-22-2024 CNCO Letter Text Normal [facility] CONSULTon 08-22-2024 CONSULT Normal [facility] CT ABD/PEL W IVCONon 025 CT ABD/PEL W IVCON Normal [facility] XR ABDOMEN 1V SUPINEon 08-22 XR ABDOMEN 1V SUPINE Normal [facility] aPTT PPPon 08-22-2024 aPTT Coag (PPP) [Time] 60.1 s High 23.0-32.4 [facility] Comment on above: Order Comment: Speci men Type: BLOOD SPECIMENOrdering Facility: [facility] Address: [address] [place] [address] Performed By: #### 1 4979-9 ####[facility]ORATORYCLIA [id number] [place] [address] [place] Basic metabolic 2000 panelon 08-21-2024 Anion gap [Moles/Vol] 13 mmol/L Normal 8-15 [facility] Comment on above: Order Comment: Speci men Type: BLOOD SPECIMENOrdering Facility: [facility] Address: [address] [place] [address] Performed By: #### 2 4321-2 ####[facility]ORATORYCLIA [id number] [place] [address] [place] Calcium [Mass/Vol] 9.2 mg/dL Normal 8.5-10.2 [facility] Comment on above: Order Comment: Speci men Type: BLOOD SPECIMENOrdering Facility: [facility] Address: [address] [place] [address] Performed By: #### 2 4321-2 ####[facility]ORATORYCLIA [id number] [address] [place] Chloride [Moles/Vol] 100 mmol/L Normal 98-107 [facility] Comment on above: Order Comment: Speci men Type: BLOOD SPECIMENOrdering Facility: [facility] Address: [address] [place] [address] Performed By: #### 2 4321-2 ####[facility]ORATORYCLIA [id number] [address] [place] CO2 [Moles/Vol] 19 mmol/L Low 22-30 [facility] Comment on above: Order Comment: Speci men Type: BLOOD SPECIMENOrdering Facility: [facility] Address: [address] [place] [address] Performed By: #### 2 4321-2 ####[facility] LABORATORYCLIA [id number] [address] OF [facility] Creatinine [Mass/Vol] 1.25 mg/dL High 0.73-1.22 [facility] Comment on above: Order Comment: Speci men Type: BLOOD SPECIMENOrdering Facility: [facility] Address: [address] [place] [address] Performed By: #### 2 4321-2 ####[facility]ORATORYCLIA [id number] [address] Creatinine and Glomerular filtration rate.predicted panel (S/P/Bld) 62 mL/min/1.73m??? Normal >=60 [facility] Comment on above: Order Comment: Speci men Type: BLOOD SPECIMENOrdering Facility: [facility] Address: [address] [place] [address] Result Comment: Apple mated Glomerular Filtration Rate [...] actual GFR. Performed By: #### 2 4321-2 ####[facility]ORATORYCLIA [id number] [place] [address] [place] Glucose [Mass/Vol] 129 mg/dL High 74-99 [facility] Comment on above: Order Comment: Yojana riggins Type: BLOOD SPECIMENOrdering Facility: [facility] Address: [address] [place] [address] Result Comment: The [place] [employer] Association (ADA) provides guidance for cutoff [...] Standards of Medical Care in Diabetes 2016, [place] [employer]. Diabetes Care. 2016.39(Suppl 1). Performed By: #### 2 4321-2 ####[facility]ORATORYCLIA [id number] [place] [address] [place] Potassium [Moles/Vol] 4.6 mmol/L Normal 3.7-5.1 [facility] Comment on above: Order Comment: Yojana riggins Type: BLOOD SPECIMENOrdering Facility: [facility] Address: [address] [place] [address] Performed By: #### 2 4321-2 ####[facility] LABORATORYCLIA [id number] [place] [id number] [place] Sodium [Moles/Vol] 132 mmol/L Low 136-144 [facility] Comment on above: Order Comment: Yojana riggins Type: BLOOD SPECIMENOrdering Facility: [facility] Address: [address] [place] [address] Performed By: #### 2 4321-2 ####[facility] LABORATORYCLIA [id number] [place] [id number] [place] Urea nitrogen [Mass/Vol] 24 mg/dL Normal 9-24 [facility] Comment on above: Order Comment: Speci men Type: BLOOD SPECIMENOrdering Facility: [facility] Address: [address] [place] [address] Performed By: #### 2 4321-2 ####[facility]ORATORYCLIA [id number] [place] [id number] [facility] CASE MANAGEMon 08-21-2024 CASE MANAGEM Normal [facility] CBC panel Auto (Bld)on 08-21 Erythrocyte distribution width (RBC) [Ratio] 13.9 % Normal 11.5-15.0 [facility] Comment on above: Order Comment: Speci men Type: BLOOD SPECIMENOrdering Facility: [facility] Address: [address] [place] [address] Performed By: #### 5 8410-2 ####[facility] LABORATORYCLIA [id number] [address] STATES OF [facility] Hematocrit (Bld) [Volume fraction] 41.2 % Normal 39.0-51.0 [facility] Comment on above: Order Comment: Speci men Type: BLOOD SPECIMENOrdering Facility: [facility] Address: [address] [place] [address] Performed By: #### 5 8410-2 ####[facility]ORATORYCLIA [id number] [address] [place] Hemoglobin (Bld) [Mass/Vol] 14.0 g/dL Normal 13.0-17.0 [facility] Comment on above: Order Comment: Speci men Type: BLOOD SPECIMENOrdering Facility: [facility] Address: [address] [place] [address] Performed By: #### 5 8410-2 ####[facility]ORATORYCLIA [id number] [address] [place] MCH (RBC) [Entitic mass] 30.8 pg Normal 26.0-34.0 [facility] Comment on above: Order Comment: Speci men Type: BLOOD SPECIMENOrdering Facility: [facility] Address: [address] [place] [address] Performed By: #### 5 8410-2 ####[facility] LABORATORYCLIA [id number] [address] MCHC (RBC) [Mass/Vol] 34.0 g/dL Normal 30.5-36.0 [facility] Comment on above: Order Comment: Speci men Type: BLOOD SPECIMENOrdering Facility: [facility] Address: [address] [place] [address] Performed By: #### 5 8410-2 ####[facility] LABORATORYCLIA [id number] [address] [place] MCV (RBC) [Entitic vol] 90.7 fL Normal 80.0-100.0 [facility] Comment on above: Order Comment: Speci men Type: BLOOD SPECIMENOrdering Facility: [facility] Address: [address] [place] [address] Performed By: #### 5 8410-2 ####[facility]ORATORYCLIA [id number] [address] Nucleated RBC (Bld) [#/Vol] 10*3/uL Normal <0.01 [facility] Comment on above: Order Comment: Speci men Type: BLOOD SPECIMENOrdering Facility: [facility] Address: [address] [place] [address] Performed By: #### 5 8410-2 ####[facility]ORATORYCLIA [id number] [address] STATES [facility] Platelet mean volume (Bld) [Entitic vol] 8.6 fL Low 9.0-12.7 [facility] Comment on above: Order Comment: Speci men Type: BLOOD SPECIMENOrdering Facility: [facility] Address: [address] [place] [address] Performed By: #### 5 8410-2 ####[facility]ORATORYCLIA [id number] [place] [address] [place] Platelets (Bld) [#/Vol] 216 10*3/uL Normal 150-400 [facility] Comment on above: Order Comment: Speci men Type: BLOOD SPECIMENOrdering Facility: [facility] Address: [address] [place] [address] Performed By: #### 5 8410-2 ####[facility]ORATORYCLIA [id number] [place] [address] [place] RBC (Bld) [#/Vol] 4.54 10*6/uL Normal 4.20-6.00 [facility] Comment on above: Order Comment: Speci men Type: BLOOD SPECIMENOrdering Facility: [facility] Address: [address] [place] [address] Performed By: #### 5 8410-2 ####[facility]ORATORYCLIA [id number] [address] [place] WBC (Bld) [#/Vol] 8.97 10*3/uL Normal 3.70-11.00 [facility] Comment on above: Order Comment: Speci men Type: BLOOD SPECIMENOrdering Facility: [facility] Address: [address] [place] [address] Performed By: #### 5 8410-2 ####[facility] LABORATORYCLIA [id number] [address] [place] CONSULTon 08-21-2024 CONSULT Normal [facility] CONSULT PROGon 08-21-2024 CONSULT PROG Normal [facility] NURSING PROGon 08-21-2024 NURSING PROG Normal [facility] XR ABDOMEN 1V SUPINEon 08-21 XR ABDOMEN 1V SUPINE Normal [facility] XR THORACIC 3V AP/LAT/SWIMME RSon 08-21-2024 XR THORACIC 3V AP/LAT/SWIMMERS Normal [facility] aPTT PPPon 08-21-2024 aPTT Coag (PPP) [Time] 64.3 s High 23.0-32.4 [facility] Comment on above: Order Comment: Speci men Type: BLOOD SPECIMENOrdering Facility: [facility] Address: [address] [place] [address] Performed By: #### 1 4979-9 ####[facility]ORATORYCLIA [id number] [place] [address] [place] ALLIED HEALTHon 08-20-2024 ALLIED HEALTH Normal [facility] Basic metabolic 2000 panelon 08-20-2024 Anion gap [Moles/Vol] 11 mmol/L Normal 8-15 [facility] Comment on above: Order Comment: Speci men Type: BLOOD SPECIMENOrdering Facility: [facility] Address: [address] [place] [address] Performed By: #### 2 4321-2 ####[facility]ORATORYCLIA [id number] [place] [address] [place] Calcium [Mass/Vol] 8.9 mg/dL Normal 8.5-10.2 [facility] Comment on above: Order Comment: Speci men Type: BLOOD SPECIMENOrdering Facility: [facility] Address: [address] [place] [address] Performed By: #### 2 4321-2 ####[facility]ORATORYCLIA [id number] [place] [address] [place] Chloride [Moles/Vol] 101 mmol/L Normal 98-107 [facility] Comment on above: Order Comment: Speci men Type: BLOOD SPECIMENOrdering Facility: [facility] Address: [address] [place] [address] Performed By: #### 2 4321-2 ####[facility]ORATORYCLIA [id number] [place] [address] [place] CO2 [Moles/Vol] 21 mmol/L Low 22-30 [facility] Comment on above: Order Comment: Speci men Type: BLOOD SPECIMENOrdering Facility: [facility] Address: [address] [place] [address] Performed By: #### 2 4321-2 ####[facility]ORATORYCLIA [id number] [place] [address] [place] Creatinine [Mass/Vol] 1.31 mg/dL High 0.73-1.22 [facility] Comment on above: Order Comment: Yojana riggins Type: BLOOD SPECIMENOrdering Facility: [facility] Address: [address] [place] [address] Performed By: #### 2 4321-2 ####[facility] LABORATORYCLIA [id number] [address] [place] Creatinine and Glomerular filtration rate.predicted panel (S/P/Bld) 59 mL/min/1.73m??? Low >=60 [facility] Comment on above: Order Comment: Yojana riggins Type: BLOOD SPECIMENOrdering Facility: [facility] Address: [address] [place] [address] Result Comment: Apple mated Glomerular Filtration Rate [...] actual GFR. Performed By: #### 2 4321-2 ####[facility]ORATORYCLIA [id number] [place] [address] [place] Glucose [Mass/Vol] 133 mg/dL High 74-99 [facility] Comment on above: Order Comment: Yojana riggins Type: BLOOD SPECIMENOrdering Facility: [facility] Address: [address] [place] [address] Result Comment: The [place] Diabetes Association (ADA) provides guidance for cutoff [...] Standards of Medical Care in Diabetes 2016, [place] [employer]. Diabetes Care. 2016.39(Suppl 1). Performed By: #### 2 4321-2 ####[facility]ORATORYCLIA [id number] [address] STATES OF [facility] Potassium [Moles/Vol] 4.1 mmol/L Normal 3.7-5.1 [facility] Comment on above: Order Comment: Speci men Type: BLOOD SPECIMENOrdering Facility: [facility] Address: [address] [place] [address] Performed By: #### 2 4321-2 ####[facility] LABORATORYCLIA [id number] [place] [id number] [facility] Sodium [Moles/Vol] 133 mmol/L Low 136-144 [facility] Comment on above: Order Comment: Speci men Type: BLOOD SPECIMENOrdering Facility: [facility] Address: [address] [place] [address] Performed By: #### 2 4321-2 ####[facility] LABORATORYCLIA [id number] [address] STATES [facility] Urea nitrogen [Mass/Vol] 34 mg/dL High 9-24 [facility] Comment on above: Order Comment: Speci men Type: BLOOD SPECIMENOrdering Facility: [facility] Address: [address] [place] [address] Performed By: #### 2 4321-2 ####[facility] LABORATORYCLIA [id number] [address] CBC panel Auto (Bld)on 08-20 Erythrocyte distribution width (RBC) [Ratio] 13.8 % Normal 11.5-15.0 [facility] Comment on above: Order Comment: Speci men Type: BLOOD SPECIMENOrdering Facility: [facility] Address: [address] [place] [address] Performed By: #### 5 8410-2 ####[facility] LABORATORYCLIA [id number] [place] [address] [place] Hematocrit (Bld) [Volume fraction] 40.0 % Normal 39.0-51.0 [facility] Comment on above: Order Comment: Speci men Type: BLOOD SPECIMENOrdering Facility: [facility] Address: [address] [place] [address] Performed By: #### 5 8410-2 ####[facility] LABORATORYCLIA [id number] [address] STATES OF [facility] Hemoglobin (Bld) [Mass/Vol] 13.6 g/dL Normal 13.0-17.0 [facility] Comment on above: Order Comment: Speci men Type: BLOOD SPECIMENOrdering Facility: [facility] Address: [address] [place] [address] Performed By: #### 5 8410-2 ####[facility] LABORATORYCLIA [id number] [address] [place] MCH (RBC) [Entitic mass] 30.5 pg Normal 26.0-34.0 [facility] Comment on above: Order Comment: Speci men Type: BLOOD SPECIMENOrdering Facility: [facility] Address: [address] [place] [address] Performed By: #### 5 8410-2 ####[facility]ORATORYCLIA [id number] [address] [place] MCHC (RBC) [Mass/Vol] 34.0 g/dL Normal 30.5-36.0 [facility] Comment on above: Order Comment: Speci men Type: BLOOD SPECIMENOrdering Facility: [facility] Address: [address] [place] [address] Performed By: #### 5 8410-2 ####[facility] LABORATORYCLIA [id number] [address] [place] MCV (RBC) [Entitic vol] 89.7 fL Normal 80.0-100.0 [facility] Comment on above: Order Comment: Speci men Type: BLOOD SPECIMENOrdering Facility: [facility] Address: [address] [place] [address] Performed By: #### 5 8410-2 ####[facility]ORATORYCLIA [id number] [place] [address] [place] Nucleated RBC (Bld) [#/Vol] 10*3/uL Normal <0.01 [facility] Comment on above: Order Comment: Speci men Type: BLOOD SPECIMENOrdering Facility: [facility] Address: [address] [place] [address] Performed By: #### 5 8410-2 ####[facility] LABORATORYCLIA [id number] [place] [address] [place] Platelet mean volume (Bld) [Entitic vol] 8.9 fL Low 9.0-12.7 [facility] Comment on above: Order Comment: Speci men Type: BLOOD SPECIMENOrdering Facility: [facility] Address: [address] [place] [address] Performed By: #### 5 8410-2 ####[facility] LABORATORYCLIA [id number] [address] [place] Platelets (Bld) [#/Vol] 219 10*3/uL Normal 150-400 [facility] Comment on above: Order Comment: Speci men Type: BLOOD SPECIMENOrdering Facility: [facility] Address: [address] [place] [address] Performed By: #### 5 8410-2 ####[facility] LABORATORYCLIA [id number] [address] [place] RBC (Bld) [#/Vol] 4.46 10*6/uL Normal 4.20-6.00 [facility] Comment on above: Order Comment: Speci men Type: BLOOD SPECIMENOrdering Facility: [facility] Address: [address] [place] [address] Performed By: #### 5 8410-2 ####[facility] LABORATORYCLIA [id number] [place] [address] [place] WBC (Bld) [#/Vol] 7.56 10*3/uL Normal 3.70-11.00 [facility] Comment on above: Order Comment: Speci men Type: BLOOD SPECIMENOrdering Facility: [facility] Address: [address] [place] [address] [place] [id number] Performed By: #### 5 8410-2 ####[facility] LABORATORYCLIA [id number] [place] [address] [place] CNPNon 08-20-2024 CNPN Normal [facility] CONSULTon 08-20-2024 CONSULT Normal [facility] MRI THORACIC SPINE WO IVCONo n 08-20-2024 MRI THORACIC SPINE WO IVCON Normal [facility] US CAROTID BILon 08-20-2024 US CAROTID SHIVANI Normal [facility] aPTT PPPon 08-20-2024 aPTT Coag (PPP) [Time] 66.7 s High 23.0-32.4 [facility] Comment on above: Order Comment: Speci men Type: BLOOD SPECIMENOrdering Facility: [facility] Address: [address] [place] [address] Performed By: #### 1 4979-9 ####[facility] LABORATORYCLIA [id number] [address] [place] ALLIED HEALTHon 08-19-2024 ALLIED HEALTH Normal [facility] ANES POSTPROC EVALon 025 ANES POSTPROC EVAL Normal [facility] ANES PRE-OPon 08-19-2024 ANES PRE-OP Normal [facility] BRIEF OP NOTon 08-19-2024 BRIEF OP NOT Normal [facility] Basic metabolic 2000 panelon 08-19-2024 Anion gap [Moles/Vol] 16 mmol/L High 8-15 [facility] Comment on above: Order Comment: Speci men Type: BLOOD SPECIMENOrdering Facility: [facility] Address: [address] [place], [place] [id number] Performed By: #### 2 4321-2 ####[facility] LABORATORYCLIA [id number] [place] [address] [place] Calcium [Mass/Vol] 9.1 mg/dL Normal 8.5-10.2 [facility] Comment on above: Order Comment: Speci men Type: BLOOD SPECIMENOrdering Facility: [facility] Address: [address] [place] [address] Performed By: #### 2 4321-2 ####[facility] LABORATORYCLIA [id number] [place] [address] [place] Chloride [Moles/Vol] 97 mmol/L Low 98-107 [facility] Comment on above: Order Comment: Speci men Type: BLOOD SPECIMENOrdering Facility: [facility] Address: [address] [place] [address] Performed By: #### 2 4321-2 ####[facility] LABORATORYCLIA [id number] [address] [place] CO2 [Moles/Vol] 21 mmol/L Low 22-30 [facility] Comment on above: Order Comment: Speci men Type: BLOOD SPECIMENOrdering Facility: [facility] Address: [address] [place] [address] Performed By: #### 2 4321-2 ####[facility] LABORATORYCLIA [id number] [address] [place] Creatinine [Mass/Vol] 1.50 mg/dL High 0.73-1.22 [facility] Comment on above: Order Comment: Speci men Type: BLOOD SPECIMENOrdering Facility: [facility] Address: [address] [place] [address] Performed By: #### 2 4321-2 ####[facility] LABORATORYCLIA [id number] [address] Creatinine and Glomerular filtration rate.predicted panel (S/P/Bld) 50 mL/min/1.73m??? Low >=60 [facility] Comment on above: Order Comment: Speci men Type: BLOOD SPECIMENOrdering Facility: [facility] Address: [address] [place] [address] Result Comment: Apple mated Glomerular Filtration Rate [...] actual GFR. Performed By: #### 2 4321-2 ####[facility] LABORATORYCLIA [id number] [place] [address] [place] Glucose [Mass/Vol] 80 mg/dL Normal 74-99 [facility] Comment on above: Order Comment: Speci men Type: BLOOD SPECIMENOrdering Facility: [facility] Address: [address] [place] [address] Result Comment: The [place] [employer] (ADA) provides guidance for cutoff [...] Standards of Medical Care in Diabetes 2016, [place] [employer]. Diabetes Care. 2016.39(Suppl 1). Performed By: #### 2 4321-2 ####[facility] LABORATORYCLIA [id number] [place] [address] [place] Potassium [Moles/Vol] 3.9 mmol/L Normal 3.7-5.1 [facility] Comment on above: Order Comment: Yojana riggins Type: BLOOD SPECIMENOrdering Facility: [facility] Address: [address] [place] [address] Performed By: #### 2 4321-2 ####[facility] LABORATORYIA [id number] [place] [address] [place] Sodium [Moles/Vol] 134 mmol/L Low 136-144 [facility] Comment on above: Order Comment: Yojana men Type: BLOOD SPECIMENOrdering Facility: [facility] Address: [address] [place] [address] Performed By: #### 2 4321-2 ####[facility] LABORATORYCLIA [id number] [place] [id number] [place] [facility] Urea nitrogen [Mass/Vol] 33 mg/dL High 9-24 [facility] Comment on above: Order Comment: Speci men Type: BLOOD SPECIMENOrdering Facility: [facility] Address: [address] [place] [address] Performed By: #### 2 4321-2 ####[facility] LABORATORYCLIA [id number] [address] [place] CASE MGT INIT ASSESon 2024 CASE MGT INIT ASSES Normal [facility] CBC panel Auto (Bld)on 08-19 Erythrocyte distribution width (RBC) [Ratio] 13.3 % Normal 11.5-15.0 [facility] Comment on above: Order Comment: Speci men Type: BLOOD SPECIMENOrdering Facility: [facility] Address: [address] [place] [address] Performed By: #### 5 8410-2 ####[facility] LABORATORYCLIA [id number] [address] Hematocrit (Bld) [Volume fraction] 41.4 % Normal 39.0-51.0 [facility] Comment on above: Order Comment: Speci men Type: BLOOD SPECIMENOrdering Facility: [facility] Address: [address] [place] [address] Performed By: #### 5 8410-2 ####[facility] LABORATORYCLIA [id number] [place] [id number] [place] Hemoglobin (Bld) [Mass/Vol] 13.9 g/dL Normal 13.0-17.0 [facility] Comment on above: Order Comment: Speci men Type: BLOOD SPECIMENOrdering Facility: [facility] Address: [address] [place] [address] Performed By: #### 5 8410-2 ####[facility] LABORATORYCLIA [id number] [address] MCH (RBC) [Entitic mass] 30.3 pg Normal 26.0-34.0 [facility] Comment on above: Order Comment: Speci men Type: BLOOD SPECIMENOrdering Facility: [facility] Address: [address] [place] [address] Performed By: #### 5 8410-2 ####[facility] LABORATORYCLIA [id number] [address] OF [facility] MCHC (RBC) [Mass/Vol] 33.6 g/dL Normal 30.5-36.0 [facility] Comment on above: Order Comment: Speci men Type: BLOOD SPECIMENOrdering Facility: [facility] Address: [address] [place] [address] Performed By: #### 5 8410-2 ####[facility] LABORATORYCLIA [id number] [address] MCV (RBC) [Entitic vol] 90.4 fL Normal 80.0-100.0 [facility] Comment on above: Order Comment: Speci men Type: BLOOD SPECIMENOrdering Facility: [facility] Address: [address] [place] [address] Performed By: #### 5 8410-2 ####[facility] LABORATORYCLIA [id number] [address] Nucleated RBC (Bld) [#/Vol] 10*3/uL Normal <0.01 [facility] Comment on above: Order Comment: Speci men Type: BLOOD SPECIMENOrdering Facility: [facility] Address: [address] [place] [address] Performed By: #### 5 8410-2 ####[facility] LABORATORYCLIA [id number] [address] Platelet mean volume (Bld) [Entitic vol] 8.8 fL Low 9.0-12.7 [facility] Comment on above: Order Comment: Speci men Type: BLOOD SPECIMENOrdering Facility: [facility] Address: [address] [place] [address] Performed By: #### 5 8410-2 ####[facility] LABORATORYCLIA [id number] [place] [address] [facility] [place] Platelets (Bld) [#/Vol] 223 10*3/uL Normal 150-400 [facility] Comment on above: Order Comment: Speci men Type: BLOOD SPECIMENOrdering Facility: [facility] Address: [address] [place] [address] Performed By: #### 5 8410-2 ####[facility] LABORATORYCLIA [id number] [place] [address] [place] RBC (Bld) [#/Vol] 4.58 10*6/uL Normal 4.20-6.00 [facility] Comment on above: Order Comment: Speci men Type: BLOOD SPECIMENOrdering Facility: [facility] Address: [address] [place] [address] Performed By: #### 5 8410-2 ####[facility] LABORATORYCLIA [id number] [address] WBC (Bld) [#/Vol] 9.30 10*3/uL Normal 3.70-11.00 [facility] Comment on above: Order Comment: Speci men Type: BLOOD SPECIMENOrdering Facility: [facility] Address: [address] [place] [address] Performed By: #### 5 8410-2 ####[facility] LABORATORYCLIA [id number] [address] OF [facility] CONSULT PROGon 08-19-2024 CONSULT PROG Normal [facility] Creatinine Unsp time (U) [Ma ss/Vol]on 08-19-2024 Creatinine (U) [Mass/Vol] 98.4 mg/dL Normal 46.8-314.5 [facility] Comment on above: Order Comment: Speci men Type: URINE SPECIMENOrdering Facility: [facility] Address: [address] [place] [address] Performed By: #### 3 5674-1, 33722-8 ####[facility] LABORATORYCLIA [id number] [place] [address] [place] ECHO TRANSESOPHAGEALon 08-19 ECHO TRANSESOPHAGEAL Normal [facility] Sodium ?Tm Ur-sCncon 025 Sodium Unsp time (U) [Moles/Vol] <20 Normal 14-216 [facility] Comment on above: Order Comment: Speci men Type: URINE SPECIMENOrdering Facility: [facility] Address: [address] [place] [address] Performed By: #### 3 5674-1, 88101-2 ####[facility] LABORATORYCLIA [id number] [address] STATES OF [facility] XR LUMBAR 3V AP/LAT/L5-S1on 08-19-2024 XR LUMBAR 3V AP/LAT/L5-S1 Normal [facility] XR THORACIC 3V AP/LAT/SWIMME RSon 08-19-2024 XR THORACIC 3V AP/LAT/SWIMMERS Normal [facility] aPTT PPPon 08-19-2024 aPTT Coag (PPP) [Time] 61.8 s High 23.0-32.4 [facility] Comment on above: Order Comment: Speci men Type: BLOOD SPECIMENOrdering Facility: [facility] Address: [address] [place] [address] Performed By: #### 1 4979-9 ####[facility] LABORATORYCLIA [id number] [place] [address] [place] Basic metabolic 2000 panelon 08-18-2024 Anion gap [Moles/Vol] 13 mmol/L Normal 8-15 [facility] Comment on above: Order Comment: Speci men Type: BLOOD SPECIMENOrdering Facility: [facility] Address: [address] [place] [address] Performed By: #### 2 4321-2 ####[facility] LABORATORYCLIA [id number] [place] [address] [place] Calcium [Mass/Vol] 9.1 mg/dL Normal 8.5-10.2 [facility] Comment on above: Order Comment: Speci men Type: BLOOD SPECIMENOrdering Facility: [facility] Address: [address] [place] [address] Performed By: #### 2 4321-2 ####[facility] LABORATORYCLIA [id number] [address] [place] Chloride [Moles/Vol] 98 mmol/L Normal 98-107 [facility] Comment on above: Order Comment: Speci men Type: BLOOD SPECIMENOrdering Facility: [facility] Address: [address] [place] [address] Performed By: #### 2 4321-2 ####[facility] LABORATORYCLIA [id number] [address] [place] CO2 [Moles/Vol] 23 mmol/L Normal 22-30 [facility] Comment on above: Order Comment: Speci men Type: BLOOD SPECIMENOrdering Facility: [facility] Address: [address] [place] [address] Performed By: #### 2 4321-2 ####[facility] LABORATORYCLIA [id number] [address] STATES OF [facility] Creatinine [Mass/Vol] 1.26 mg/dL High 0.73-1.22 [facility] Comment on above: Order Comment: Speci men Type: BLOOD SPECIMENOrdering Facility: [facility] Address: [address] [place] [address] Performed By: #### 2 4321-2 ####[facility] LABORATORYCLIA [id number] [address] Creatinine and Glomerular filtration rate.predicted panel (S/P/Bld) 62 mL/min/1.73m??? Normal >=60 [facility] Comment on above: Order Comment: Speci men Type: BLOOD SPECIMENOrdering Facility: [facility] Address: [address] [place] [address] Result Comment: Apple mated Glomerular Filtration Rate [...] actual GFR. Performed By: #### 2 4321-2 ####[facility] LABORATORYCLIA [id number] [place] [address] [place] Glucose [Mass/Vol] 111 mg/dL High 74-99 [facility] Comment on above: Order Comment: Yojana riggins Type: BLOOD SPECIMENOrdering Facility: [facility] Address: [address] [place] [address] Result Comment: The [place] [employer] (ADA) provides guidance for cutoff [...] Standards of Medical Care in Diabetes 2016, [place] [employer]. Diabetes Care. 2016.39(Suppl 1). Performed By: #### 2 4321-2 ####[facility] LABORATORYCLIA [id number] [place] [address] [place] Potassium [Moles/Vol] 3.6 mmol/L Low 3.7-5.1 [facility] Comment on above: Order Comment: Yojana riggins Type: BLOOD SPECIMENOrdering Facility: [facility] Address: [address] [place] [address] Performed By: #### 2 4321-2 ####[facility] LABORATORYCLIA [id number] [place] [address] [place] Sodium [Moles/Vol] 134 mmol/L Low 136-144 [facility] Comment on above: Order Comment: Yojana riggins Type: BLOOD SPECIMENOrdering Facility: [facility] Address: [address] [place] [address] Performed By: #### 2 4321-2 ####[facility] LABORATORYCLIA [id number] [address] STATES [facility] Urea nitrogen [Mass/Vol] 29 mg/dL High 9-24 [facility] Comment on above: Order Comment: Speci men Type: BLOOD SPECIMENOrdering Facility: [facility] Address: [address] [place] [address] Performed By: #### 2 4321-2 ####[facility] LABORATORYCLIA [id number] [address] CBC panel Auto (Bld)on 08-18 Erythrocyte distribution width (RBC) [Ratio] 13.5 % Normal 11.5-15.0 [facility] Comment on above: Order Comment: Speci men Type: BLOOD SPECIMENOrdering Facility: [facility] Address: [address] [place] [address] Performed By: #### 5 8410-2 ####[facility] LABORATORYCLIA [id number] [address] Hematocrit (Bld) [Volume fraction] 42.6 % Normal 39.0-51.0 [facility] Comment on above: Order Comment: Speci men Type: BLOOD SPECIMENOrdering Facility: [facility] Address: [address] [place] [address] Performed By: #### 5 8410-2 ####[facility] LABORATORYCLIA [id number] [address] Hemoglobin (Bld) [Mass/Vol] 14.4 g/dL Normal 13.0-17.0 [facility] Comment on above: Order Comment: Speci men Type: BLOOD SPECIMENOrdering Facility: [facility] Address: [address] [place] [address] Performed By: #### 5 8410-2 ####[facility] LABORATORYCLIA [id number] [address] [place] MCH (RBC) [Entitic mass] 30.8 pg Normal 26.0-34.0 [facility] Comment on above: Order Comment: Speci men Type: BLOOD SPECIMENOrdering Facility: [facility] Address: [address] [place] [address] Performed By: #### 5 8410-2 ####[facility] LABORATORYCLIA [id number] [address] MCHC (RBC) [Mass/Vol] 33.8 g/dL Normal 30.5-36.0 [facility] Comment on above: Order Comment: Speci men Type: BLOOD SPECIMENOrdering Facility: [facility] Address: [address] [place] [address] Performed By: #### 5 8410-2 ####[facility] LABORATORYCLIA [id number] [address] OF [facility] MCV (RBC) [Entitic vol] 91.0 fL Normal 80.0-100.0 [facility] Comment on above: Order Comment: Speci men Type: BLOOD SPECIMENOrdering Facility: [facility] Address: [address] [place] [address] Performed By: #### 5 8410-2 ####[facility] LABORATORYCLIA [id number] [address] Nucleated RBC (Bld) [#/Vol] 10*3/uL Normal <0.01 [facility] Comment on above: Order Comment: Speci men Type: BLOOD SPECIMENOrdering Facility: [facility] Address: [address] [place] [address] Performed By: #### 5 8410-2 ####[facility] LABORATORYCLIA [id number] [address] Platelet mean volume (Bld) [Entitic vol] 8.6 fL Low 9.0-12.7 [facility] Comment on above: Order Comment: Speci men Type: BLOOD SPECIMENOrdering Facility: [facility] Address: [address] [place] [address] Performed By: #### 5 8410-2 ####[facility] LABORATORYCLIA [id number] [address] [place] Platelets (Bld) [#/Vol] 241 10*3/uL Normal 150-400 [facility] Comment on above: Order Comment: Speci men Type: BLOOD SPECIMENOrdering Facility: [facility] Address: [address] [place] [address] Performed By: #### 5 8410-2 ####[facility] LABORATORYCLIA [id number] [place] [address] [place] RBC (Bld) [#/Vol] 4.68 10*6/uL Normal 4.20-6.00 [facility] Comment on above: Order Comment: Speci men Type: BLOOD SPECIMENOrdering Facility: [facility] Address: [address] [place] [address] Performed By: #### 5 8410-2 ####[facility] LABORATORYCLIA [id number] [place] [address] [place] [facility] WBC (Bld) [#/Vol] 9.41 10*3/uL Normal 3.70-11.00 [facility] Comment on above: Order Comment: Speci men Type: BLOOD SPECIMENOrdering Facility: [facility] Address: [address] [place] [address] Performed By: #### 5 8410-2 ####[facility] LABORATORYCLIA [id number] [address] [place] CONSULT PROGon 08-18-2024 CONSULT PROG Normal [facility] aPTT PPPon 08-18-2024 aPTT Coag (PPP) [Time] 63.5 s High 23.0-32.4 [facility] Comment on above: Order Comment: Speci men Type: BLOOD SPECIMENOrdering Facility: [facility] Address: [address] [place] [address] Performed By: #### 1 4979-9 ####[facility] LABORATORYCLIA [id number] [address] [place] aPTT Coag (PPP) [Time] 61.7 s High 23.0-32.4 [facility] Comment on above: Order Comment: Speci men Type: BLOOD SPECIMENOrdering Facility: [facility] Address: [address] [place] [address] Performed By: #### 1 4979-9 ####[facility] LABORATORYCLIA [id number] [place] [address] [place] Basic metabolic 2000 panelon 08-17-2024 Anion gap [Moles/Vol] 11 mmol/L Normal 8-15 [facility] Comment on above: Order Comment: Speci men Type: BLOOD SPECIMENOrdering Facility: [facility] Address: [address] [place] [address] Performed By: #### 2 4321-2 ####[facility] LABORATORYCLIA [id number] [place] [address] [place] Calcium [Mass/Vol] 9.2 mg/dL Normal 8.5-10.2 [facility] Comment on above: Order Comment: Speci men Type: BLOOD SPECIMENOrdering Facility: [facility] Address: [address] [place] [address] Performed By: #### 2 4321-2 ####[facility] LABORATORYCLIA [id number] [address] [place] Chloride [Moles/Vol] 102 mmol/L Normal 98-107 [facility] Comment on above: Order Comment: Speci men Type: BLOOD SPECIMENOrdering Facility: [facility] Address: [address] [place] [address] Performed By: #### 2 4321-2 ####[facility] LABORATORYCLIA [id number] [place] [address] [place] CO2 [Moles/Vol] 23 mmol/L Normal 22-30 [facility] Comment on above: Order Comment: Speci men Type: BLOOD SPECIMENOrdering Facility: [facility] Address: [address] [place] [address] Performed By: #### 2 4321-2 ####[facility] LABORATORYCLIA [id number] [place] [address] [place] Creatinine [Mass/Vol] 1.26 mg/dL High 0.73-1.22 [facility] Comment on above: Order Comment: Yojana riggins Type: BLOOD SPECIMENOrdering Facility: [facility] Address: [address] [place] [address] Performed By: #### 2 4321-2 ####[facility] LABORATORYCLIA [id number] [place] [id number] [facility] Creatinine and Glomerular filtration rate.predicted panel (S/P/Bld) 62 mL/min/1.73m??? Normal >=60 [facility] Comment on above: Order Comment: Yojana riggins Type: BLOOD SPECIMENOrdering Facility: [facility] Address: [address] [place] [address] Result Comment: Apple mated Glomerular Filtration Rate [...] actual GFR. Performed By: #### 2 4321-2 ####[facility] LABORATORYCLIA [id number] [place] [address] [place] Glucose [Mass/Vol] 155 mg/dL High 74-99 [facility] Comment on above: Order Comment: Yojana riggins Type: BLOOD SPECIMENOrdering Facility: [facility] Address: [address] [place] [address] Result Comment: The [place] [employer] (ADA) provides guidance for cutoff [...] Standards of Medical Care in Diabetes 2016, [place] [employer]. Diabetes Care. 2016.39(Suppl 1). Performed By: #### 2 4321-2 ####[facility] LABORATORYCLIA [id number] [address] STATES OF [facility] Potassium [Moles/Vol] 4.0 mmol/L Normal 3.7-5.1 [facility] Comment on above: Order Comment: Speci men Type: BLOOD SPECIMENOrdering Facility: [facility] Address: [address] [place] [address] Performed By: #### 2 4321-2 ####[facility] LABORATORYCLIA [id number] [address] STATES [facility] Sodium [Moles/Vol] 136 mmol/L Normal 136-144 [facility] Comment on above: Order Comment: Speci men Type: BLOOD SPECIMENOrdering Facility: [facility] Address: [address] [place] [address] Performed By: #### 2 4321-2 ####[facility] LABORATORYCLIA [id number] [address] STATES [facility] Urea nitrogen [Mass/Vol] 25 mg/dL High 9-24 [facility] Comment on above: Order Comment: Speci men Type: BLOOD SPECIMENOrdering Facility: [facility] Address: [address] [place] [address] Performed By: #### 2 4321-2 ####[facility] LABORATORYCLIA [id number] [address] CBC panel Auto (Bld)on 08-17 Erythrocyte distribution width (RBC) [Ratio] 13.7 % Normal 11.5-15.0 [facility] Comment on above: Order Comment: Speci men Type: BLOOD SPECIMENOrdering Facility: [facility] Address: [address] [place] [address] Performed By: #### 5 8410-2 ####[facility] LABORATORYCLIA [id number] [address] Hematocrit (Bld) [Volume fraction] 40.5 % Normal 39.0-51.0 [facility] Comment on above: Order Comment: Speci men Type: BLOOD SPECIMENOrdering Facility: [facility] Address: [address] [place] [address] Performed By: #### 5 8410-2 ####[facility] LABORATORYCLIA [id number] [address] [place] Hemoglobin (Bld) [Mass/Vol] 13.3 g/dL Normal 13.0-17.0 [facility] Comment on above: Order Comment: Speci men Type: BLOOD SPECIMENOrdering Facility: [facility] Address: [address] [place] [address] Performed By: #### 5 8410-2 ####[facility] LABORATORYCLIA [id number] [address] [place] MCH (RBC) [Entitic mass] 30.0 pg Normal 26.0-34.0 [facility] Comment on above: Order Comment: Speci men Type: BLOOD SPECIMENOrdering Facility: [facility] Address: [address] [place] [address] Performed By: #### 5 8410-2 ####[facility] LABORATORYCLIA [id number] [address] [place] MCHC (RBC) [Mass/Vol] 32.8 g/dL Normal 30.5-36.0 [facility] Comment on above: Order Comment: Speci men Type: BLOOD SPECIMENOrdering Facility: [facility] Address: [address] [place] [address] Performed By: #### 5 8410-2 ####[facility] LABORATORYCLIA [id number] [place] [address] [place] MCV (RBC) [Entitic vol] 91.4 fL Normal 80.0-100.0 [facility] Comment on above: Order Comment: Speci men Type: BLOOD SPECIMENOrdering Facility: [facility] Address: [address] [place] [address] Performed By: #### 5 8410-2 ####[facility] LABORATORYCLIA [id number] [place] [address] [place] Nucleated RBC (Bld) [#/Vol] 10*3/uL Normal <0.01 [facility] Comment on above: Order Comment: Speci men Type: BLOOD SPECIMENOrdering Facility: [facility] Address: [address] [place] [address] Performed By: #### 5 8410-2 ####[facility] LABORATORYCLIA [id number] [place] [address] [place] Platelet mean volume (Bld) [Entitic vol] 8.7 fL Low 9.0-12.7 [facility] Comment on above: Order Comment: Speci men Type: BLOOD SPECIMENOrdering Facility: [facility] Address: [address] [place] [address] Performed By: #### 5 8410-2 ####[facility] LABORATORYCLIA [id number] [address] [place] Platelets (Bld) [#/Vol] 210 10*3/uL Normal 150-400 [facility] Comment on above: Order Comment: Speci men Type: BLOOD SPECIMENOrdering Facility: [facility] Address: [address] [place] [address] Performed By: #### 5 8410-2 ####[facility] LABORATORYCLIA [id number] [place] [address] [place] RBC (Bld) [#/Vol] 4.43 10*6/uL Normal 4.20-6.00 [facility] Comment on above: Order Comment: Speci men Type: BLOOD SPECIMENOrdering Facility: [facility] Address: [address] [place] [address] Performed By: #### 5 8410-2 ####[facility] LABORATORYCLIA [id number] [address] [place] WBC (Bld) [#/Vol] 8.49 10*3/uL Normal 3.70-11.00 [facility] Comment on above: Order Comment: Speci men Type: BLOOD SPECIMENOrdering Facility: [facility] Address: [address] [place] [address] Performed By: #### 5 8410-2 ####[facility] LABORATORYCLIA [id number] [address] [place] CONSULTon 08-17-2024 CONSULT Normal [facility] NURSING PROGon 08-17-2024 NURSING PROG Normal [facility] Urinalysis complete panel (U )on 08-17-2024 Bilirubin Ql (U) Negative Normal Negative [facility] Comment on above: Order Comment: Speci men Type: URINE SPECIMENOrdering Facility: [facility] Address: [address] [place] [address] Performed By: #### 2 4356-8 ####[facility] LABORATORYCLIA [id number] [address] [place] [facility] Clarity (Unsp spec) Clear Normal Clear [facility] Comment on above: Order Comment: Speci men Type: URINE SPECIMENOrdering Facility: [facility] Address: [address] [place] [address] Performed By: #### 2 4356-8 ####[facility] LABORATORYCLIA [id number] [address] Color (U) Light Yellow Normal yellow [facility] Comment on above: Order Comment: Speci men Type: URINE SPECIMENOrdering Facility: [facility] Address: [address] [place] [address] Performed By: #### 2 4356-8 ####[facility] LABORATORYCLIA [id number] [address] [place] Epithelial cells LM.HPF (Urine sed) [#/Area] Few Abnormal None Seen [facility] Comment on above: Order Comment: Speci men Type: URINE SPECIMENOrdering Facility: [facility] Address: [address] [place] [address] Performed By: #### 2 4356-8 ####[facility] LABORATORYCLIA [id number] [address] [place] Glucose Test strip (U) [Mass/Vol] 4+ Abnormal Trace, Negative [facility] Comment on above: Order Comment: Speci men Type: URINE SPECIMENOrdering Facility: [facility] Address: [address] [place] [address] Performed By: #### 2 4356-8 ####[facility] LABORATORYCLIA [id number] [place] [address] [place] [facility] Hemoglobin Ql (U) Negative Normal Negative, Trace [facility] Comment on above: Order Comment: Speci men Type: URINE SPECIMENOrdering Facility: [facility] Address: [address] [place] [address] Performed By: #### 2 4356-8 ####[facility] LABORATORYCLIA [id number] [address] Ketones Ql (U) Negative Normal Negative, Trace [facility] Comment on above: Order Comment: Speci men Type: URINE SPECIMENOrdering Facility: [facility] Address: [address] [place] [address] Performed By: #### 2 4356-8 ####[facility] LABORATORYCLIA [id number] [address] Leukocyte esterase Test strip Ql (U) 250 Jairo/uL Abnormal Negative, 25 Jairo/uL [facility] Comment on above: Order Comment: Speci men Type: URINE SPECIMENOrdering Facility: [facility] Address: [address] [place] [address] Performed By: #### 2 4356-8 ####[facility]ORATORYCLIA [id number] [address] [place] Nitrite Ql (U) Negative Normal Negative [facility] Comment on above: Order Comment: Speci men Type: URINE SPECIMENOrdering Facility: [facility] Address: [address] [place] [address] Performed By: #### 2 4356-8 ####[facility]ORATORYCLIA [id number] [address] [place] pH (U) 5.5 [pH] Normal 5.0-8.0 [facility] Comment on above: Order Comment: Speci men Type: URINE SPECIMENOrdering Facility: [facility] Address: [address] [place] [address] Performed By: #### 2 4356-8 ####[facility] LABORATORYCLIA [id number] [address] STATES [facility] Protein (U) [Mass/Vol] Negative Normal Trace , Negative [facility] Comment on above: Order Comment: Speci men Type: URINE SPECIMENOrdering Facility: [facility] Address: [address] [place] [address] Performed By: #### 2 4356-8 ####[facility] LABORATORYCLIA [id number] [address] RBC LM.HPF (Urine sed) [#/Area] 6-10 /HPF Abnormal 0-3 /HPF [facility] Comment on above: Order Comment: Speci men Type: URINE SPECIMENOrdering Facility: [facility] Address: [address] [place] [address] Performed By: #### 2 4356-8 ####[facility] LABORATORYCLIA [id number] [address] Specific gravity (U) [Rel density] 1.021 Normal 1.005-1.030 [facility] Comment on above: Order Comment: Speci men Type: URINE SPECIMENOrdering Facility: [facility] Address: [address] [place] [address] Performed By: #### 2 4356-8 ####[facility] LABORATORYCLIA [id number] [address] Urobilinogen Ql (U) Normal Normal Normal [facility] Comment on above: Order Comment: Speci men Type: URINE SPECIMENOrdering Facility: [facility] Address: [address] [place] [address] Performed By: #### 2 4356-8 ####[facility] LABORATORYCLIA [id number] [address] WBC LM.HPF (Urine sed) [#/Area] 0-5 /HPF Normal 0-5 /HPF [facility] Comment on above: Order Comment: Speci men Type: URINE SPECIMENOrdering Facility: [facility] Address: [address] [place] [address] Performed By: #### 2 4356-8 ####[facility] LABORATORYCLIA [id number] [address] aPTT PPPon 08-17-2024 aPTT Coag (PPP) [Time] 73.8 s High 23.0-32.4 [facility] Comment on above: Order Comment: Speci men Type: BLOOD SPECIMENOrdering Facility: [facility] Address: [address] [place] [address] Performed By: #### 1 4979-9 ####[facility] LABORATORYCLIA [id number] [address] aPTT Coag (PPP) [Time] 47.8 s High 23.0-32.4 [facility] Comment on above: Order Comment: Speci men Type: BLOOD SPECIMENOrdering Facility: [facility] Address: [address] [place] [address] Performed By: #### 1 4979-9 ####[facility] LABORATORYCLIA [id number] [address] aPTT Coag (PPP) [Time] 62.9 s High 23.0-32.4 [facility] Comment on above: Order Comment: Speci men Type: BLOOD SPECIMENOrdering Facility: [facility] Address: [address] [place] [address] Performed By: #### 1 4979-9 ####[facility] LABORATORYCLIA [id number] [address] BRIEF OP NOTon 08-16-2024 BRIEF OP NOT Normal [facility] Basic metabolic 2000 panelon 08-16-2024 Anion gap [Moles/Vol] 11 mmol/L Normal 8-15 [facility] Comment on above: Order Comment: Speci men Type: BLOOD SPECIMENOrdering Facility: [facility] Address: [address] [place] [address] Performed By: #### 2 4320-2, 20272-9 ####[facility]ORATORYCLIA [id number] [place] [address] [place] Calcium [Mass/Vol] 9.2 mg/dL Normal 8.5-10.2 [facility] Comment on above: Order Comment: Speci men Type: BLOOD SPECIMENOrdering Facility: [facility] Address: [address] [place] [address] Performed By: #### 2 4320-2, 84972-7 ####[facility] LABORATORYCLIA [id number] [place] [address] [place] Chloride [Moles/Vol] 99 mmol/L Normal 98-107 [facility] Comment on above: Order Comment: Speci men Type: BLOOD SPECIMENOrdering Facility: [facility] Address: [address] [place] [address] Performed By: #### 2 4320-2, 92082-0 ####[facility] LABORATORYCLIA [id number] [place] [address] [place] CO2 [Moles/Vol] 20 mmol/L Low 22-30 [facility] Comment on above: Order Comment: Speci men Type: BLOOD SPECIMENOrdering Facility: [facility] Address: [address] [place] [address] Performed By: #### 2 4320-2, 21761-0 ####[facility]ORATORYCLIA [id number] [place] [address] [place] Creatinine [Mass/Vol] 1.18 mg/dL Normal 0.73-1.22 [facility] Comment on above: Order Comment: Speci men Type: BLOOD SPECIMENOrdering Facility: [facility] Address: [address] [place] [address] Performed By: #### 2 4320-2, 85948-3 ####[facility]ORATORYCLIA [id number] [place] [address] [place] Creatinine and Glomerular filtration rate.predicted panel (S/P/Bld) 67 mL/min/1.73m??? Normal >=60 [facility] Comment on above: Order Comment: Yojana riggins Type: BLOOD SPECIMENOrdering Facility: [facility] Address: [address] [place] [address] Result Comment: Apple mated Glomerular Filtration Rate [...] actual GFR. Performed By: #### 2 4321-2, 55163-4 ####[facility] LABORATORYCLIA [id number] [place] [address] [place] Glucose [Mass/Vol] 234 mg/dL High 74-99 [facility] Comment on above: Order Comment: Yojana riggins Type: BLOOD SPECIMENOrdering Facility: [facility] Address: [address] [place] [address] Result Comment: The [place] Diabetes Association (ADA) provides guidance for cutoff [...] Standards of Medical Care in Diabetes 2016, [place] [employer]. Diabetes Care. 2016.39(Suppl 1). Performed By: #### 2 4321-2, 78805-1 ####[facility] LABORATORYCLIA [id number] [place] [address] [place] Potassium [Moles/Vol] 4.5 mmol/L Normal 3.7-5.1 [facility] Comment on above: Order Comment: Speci men Type: BLOOD SPECIMENOrdering Facility: [facility] Address: [address] [place] [address] Performed By: #### 2 4321-2, 77056-4 ####[facility] LABORATORYCLIA [id number] [address] STATES OF [facility] Sodium [Moles/Vol] 130 mmol/L Low 136-144 [facility] Comment on above: Order Comment: Speci men Type: BLOOD SPECIMENOrdering Facility: [facility] Address: [address] [place] [address] Performed By: #### 2 4321-2, 02811-7 ####[facility] LABORATORYCLIA [id number] [address] STATES [facility] Urea nitrogen [Mass/Vol] 27 mg/dL High 9-24 [facility] Comment on above: Order Comment: Speci men Type: BLOOD SPECIMENOrdering Facility: [facility] Address: [address] [place] [address] Performed By: #### 2 4321-2, 88214-9 ####[facility] LABORATORYCLIA [id number] [address] OF [facility] CARD CATH DIAGNOSTICon 08-16 CARD CATH DIAGNOSTIC Normal [facility] CBC panel Auto (Bld)on 08-16 Erythrocyte distribution width (RBC) [Ratio] 13.6 % Normal 11.5-15.0 [facility] Comment on above: Order Comment: Speci men Type: BLOOD SPECIMENOrdering Facility: [facility] Address: [address] [place] [address] Performed By: #### 5 8410-2 ####[facility] LABORATORYCLIA [id number] [address] Hematocrit (Bld) [Volume fraction] 40.7 % Normal 39.0-51.0 [facility] Comment on above: Order Comment: Speci men Type: BLOOD SPECIMENOrdering Facility: [facility] Address: [address] [place] [address] Performed By: #### 5 8410-2 ####[facility] LABORATORYCLIA [id number] [address] Hemoglobin (Bld) [Mass/Vol] 13.7 g/dL Normal 13.0-17.0 [facility] Comment on above: Order Comment: Speci men Type: BLOOD SPECIMENOrdering Facility: [facility] Address: [address] [place] [address] Performed By: #### 5 8410-2 ####[facility] LABORATORYCLIA [id number] [address] OF [facility] MCH (RBC) [Entitic mass] 31.1 pg Normal 26.0-34.0 [facility] Comment on above: Order Comment: Speci men Type: BLOOD SPECIMENOrdering Facility: [facility] Address: [address] [place] [address] Performed By: #### 5 8410-2 ####[facility] LABORATORYCLIA [id number] [address] MCHC (RBC) [Mass/Vol] 33.7 g/dL Normal 30.5-36.0 [facility] Comment on above: Order Comment: Speci men Type: BLOOD SPECIMENOrdering Facility: [facility] Address: [address] [place] [address] Performed By: #### 5 8410-2 ####[facility] LABORATORYCLIA [id number] [address] STATES [facility] MCV (RBC) [Entitic vol] 92.5 fL Normal 80.0-100.0 [facility] Comment on above: Order Comment: Speci men Type: BLOOD SPECIMENOrdering Facility: [facility] Address: [address] [place] [address] Performed By: #### 5 8410-2 ####[facility] LABORATORYCLIA [id number] [address] [place] Nucleated RBC (Bld) [#/Vol] 10*3/uL Normal <0.01 [facility] Comment on above: Order Comment: Speci men Type: BLOOD SPECIMENOrdering Facility: [facility] Address: [address] [place] [address] Performed By: #### 5 8410-2 ####[facility] LABORATORYCLIA [id number] [place] [address] [place] Platelet mean volume (Bld) [Entitic vol] 9.0 fL Normal 9.0-12.7 [facility] Comment on above: Order Comment: Speci men Type: BLOOD SPECIMENOrdering Facility: [facility] Address: [address] [place] [address] Performed By: #### 5 8410-2 ####[facility] LABORATORYCLIA [id number] [place] [address] [place] Platelets (Bld) [#/Vol] 242 10*3/uL Normal 150-400 [facility] Comment on above: Order Comment: Speci men Type: BLOOD SPECIMENOrdering Facility: [facility] Address: [address] [place] [address] Performed By: #### 5 8410-2 ####[facility] LABORATORYCLIA [id number] [place] [address] [place] RBC (Bld) [#/Vol] 4.40 10*6/uL Normal 4.20-6.00 [facility] Comment on above: Order Comment: Speci men Type: BLOOD SPECIMENOrdering Facility: [facility] Address: [address] [place] [address] Performed By: #### 5 8410-2 ####[facility] LABORATORYCLIA [id number] [place] [address] [place] WBC (Bld) [#/Vol] 8.41 10*3/uL Normal 3.70-11.00 [facility] Comment on above: Order Comment: Speci men Type: BLOOD SPECIMENOrdering Facility: [facility] Address: [address] [place] [address] Performed By: #### 5 8410-2 ####[facility] LABORATORYCLIA [id number] [place] [address] [place] CNPNon 08-16-2024 CNPN Normal [facility] CONSULTon 08-16-2024 CONSULT Normal [facility] ECHO WITH AGITATED SALINE CO NTRASTon 08-16-2024 ECHO WITH AGITATED SALINE CONTRAST Normal [facility] ED NOTEon 08-16-2024 ED NOTE HNO ID: [id number] Author: CHENG MENA RN Service: Emergency Medicine Author Type: Registered Nurse Type: ED Notes Filed: 08/16/2024 12:12 Note Text: Report called to BERT Izaguirre Normal [facility] ED NOTE HNO ID: [id number] Author: CHENG MENA RN Service: Emergency Medicine Author Type: Registered Nurse Type: ED Notes Filed: 08/16/2024 11:18 Note Text: Pt updated on POC Normal [facility] ED NOTE HNO ID: [id number] Author: CHENG MENA RN Service: Emergency Medicine Author Type: Registered Nurse Type: ED Notes Filed: 08/16/2024 11:11 Note Text: Cardiac paged for POC Normal [facility] ED NOTE HNO ID: [id number] Author: CHENG MENA RN Service: Emergency Medicine Author Type: Registered Nurse Type: ED Notes Filed: 08/16/2024 09:15 Note Text: Echo bedside. Normal [facility] HIGH SENSITIVITY TROPONIN To n 08-16-2024 Troponin T.cardiac High sensitivity method [Mass/Vol] 428 ng/L High <12 [facility] Comment on above: Order Comment: Speci men Type: BLOOD SPECIMENOrdering Facility: [facility] Address: [address] [place] [address] Performed By: #### H STNT ####[facility] LABORATORYCLIA [id number] [address] [place] Troponin T.cardiac High sensitivity method [Mass/Vol] 415 ng/L High <12 [facility] Comment on above: Order Comment: Speci men Type: BLOOD SPECIMENOrdering Facility: [facility] Address: [address] [place] [address] Performed By: #### H STNT ####[facility] LABORATORYCLIA [id number] [address] Troponin T.cardiac High sensitivity method [Mass/Vol] 408 ng/L High <12 [facility] Comment on above: Order Comment: Speci men Type: BLOOD SPECIMENOrdering Facility: [facility] Address: [address] [place] [address] Performed By: #### H STNT ####[facility] LABORATORYCLIA [id number] [address] [place] Troponin T.cardiac High sensitivity method [Mass/Vol] 427 ng/L High <12 [facility] Comment on above: Order Comment: Speci men Type: BLOOD SPECIMENOrdering Facility: [facility] Address: [address] [place] [address] Performed By: #### H STNT ####[facility] LABORATORYCLIA [id number] [address] [place] Troponin T.cardiac High sensitivity method [Mass/Vol] 399 ng/L High <12 [facility] Comment on above: Order Comment: Speci men Type: BLOOD SPECIMENOrdering Facility: [facility] Address: [address] [place] [address] Performed By: #### H STNT ####[facility] LABORATORYCLIA [id number] [address] [place] Troponin T.cardiac High sensitivity method [Mass/Vol] 379 ng/L High <12 [facility] Comment on above: Order Comment: Speci men Type: BLOOD SPECIMENOrdering Facility: [facility] Address: [address] [place] [address] Performed By: #### H STNT ####[facility] LABORATORYCLIA [id number] [address] [place] Lipid 1996 panelon 5 Cholesterol [Mass/Vol] 128 mg/dL Normal <200 [facility] Comment on above: Order Comment: Speci men Type: BLOOD SPECIMENOrdering Facility: [facility] Address: [address] [place] [address] Result Comment: <200 mg/dL, Desirable 200-239 mg/dL, Borderline high>239 mg/dL, High Performed By: #### 2 4321-2, 44514-1 ####[facility] LABORATORYCLIA [id number] [address] OF [facility] Cholesterol in HDL [Mass/Vol] 29 mg/dL Low >39 [facility] Comment on above: Order Comment: Speci men Type: BLOOD SPECIMENOrdering Facility: [facility] Address: [address] [place] [address] Result Comment: 40-5 9 mg/dL, Acceptable>59 mg/dL, High: Negative risk factor for coronary heart disease<40 mg/dL, Low: Positive risk factor for coronary heart disease Performed By: #### 2 4321-2, 31210-5 ####[facility] LABORATORYCLIA [id number] [address] Cholesterol in LDL [Mass/Vol] 82 mg/dL Normal <100 [facility] Comment on above: Order Comment: Yojana [facility] Type: BLOOD SPECIMENOrdering Facility: [facility] Address: [address] [place] [address] Result Comment: <100 mg/dL, Optimal 100-129 mg/dL, Near optimal/above optimal 130-159 mg/dL, Borderline high 160-189 mg/dL, High>189 mg/dL, Very highSecondary prevention optimal LDL Cholesterol levels are recommended to be <70 mg/dLLDL cholesterol is calculated using the Berger-NIH equation. Performed By: #### 2 4321-2, 63712-6 ####[facility] LABORATORYCLIA [id number] [address] [place] Cholesterol in LDL/Cholesterol in HDL [Mass ratio] 2.83 {ratio} High <2.54 [facility] Comment on above: Order Comment: Simrani men Type: BLOOD SPECIMENOrdering Facility: [facility] Address: [address] [place] [address] Result Comment: Refe rence:1. National Cholesterol Education Program ATP III Guideline At-A-Glance Quick Desk Reference: National Heart, Lung, and Blood [place]. National Institutes of Health. 2001: NIH Publication No. 01-3305.2. An International Atherosclerosis Society position paper: global recommendations for the management of dyslipidemia: executive summary, Atherosclerosis. 2014: 232(2):410-413. Performed By: #### 2 4321-2, 02421-8 ####[facility] LABORATORYCLIA [id number] [address] Cholesterol in VLDL [Mass/Vol] 13 mg/dL Normal <30 [facility] Comment on above: Order Comment: Speci [facility] Type: BLOOD SPECIMENOrdering Facility: [facility] Address: [address] [place] [address] Performed By: #### 2 4320-, 47011-2 ####[facility] LABORATORYCLIA [id number] [address] Cholesterol non HDL [Mass/Vol] 99 mg/dL Normal <130 [facility] Comment on above: Order Comment: Yojana [facility] Type: BLOOD SPECIMENOrdering Facility: [facility] Address: [address] [place] [address] Result Comment: <130 mg/dL, Optimal 130-159 mg/dL, Near optimal/above optimal 160-189 mg/dL, Borderline high 190-219 mg/dL, High>219 mg/dL, Very highSecondary prevention optimal non HDL Cholesterol levels are recommended to be <100 mg/dL Performed By: #### 2 4320-, 57265-6 ####[facility] LABORATORYCLIA [id number] [address] Cholesterol.total/Choles terol in HDL [Mass ratio] 4.41 {ratio} Normal <5.10 [facility] Comment on above: Order Comment: Yojana [facility] Type: BLOOD SPECIMENOrdering Facility: [facility] Address: [address] [place] [address] Performed By: #### 2 432-2, 30549-4 ####[facility] LABORATORYCLIA [id number] [address] FASTING TIME 5 hrs Normal [facility] Comment on above: Order Comment: Speci men Type: BLOOD SPECIMENOrdering Facility: [facility] Address: [address] [place] [address] Performed By: #### 2 4321-2, 12531-2 ####[facility] LABORATORYCLIA [id number] [address] STATES OF [facility] Triglyceride [Mass/Vol] 84 mg/dL Normal <150 [facility] Comment on above: Order Comment: Speci men Type: BLOOD SPECIMENOrdering Facility: [facility] Address: [address] [place] [address] Result Comment: <150 mg/dL, Normal 150-199 mg/dL, Borderline high 200-499 mg/dL, High>499 mg/dL, Very high Performed By: #### 2 4321-2, 51468-9 ####[facility] LABORATORYCLIA [id number] [address] STAPHYLOCOCCUS AUREUS AND MR SA SCREEN, PCR, NASALon 08-16-2024 S. aureus and MRSA panel MADELYN+probe (Nose) Methicillin-SUSCEPTIB LE Staphylococcus aureus Detected Abnormal Not Detected [facility] Comment on above: Order Comment: Speci men Type: SWABOrdering Facility: [facility] Address: [address] [place] [address] Performed By: #### S APCR ####[facility] LABORATORYCLIA [id number] [address] [place] TSH SerPl-aCncon 08-16-2024 TSH Qn 2.960 m[IU]/L Normal 0.270-4.200 [facility] Comment on above: Order Comment: Speci men Type: BLOOD SPECIMENOrdering Facility: [facility] Address: [address] [place] [address] Performed By: #### 3 016-3 ####[facility] LABORATORYCLIA [id number] [address] [place] aPTT PPPon 08-16-2024 aPTT Coag (PPP) [Time] 39.3 s High 23.0-32.4 [facility] Comment on above: Order Comment: Speci men Type: BLOOD SPECIMENOrdering Facility: [facility] Address: [address] [place] [address] Performed By: #### 1 4979-9 ####[facility] LABORATORYCLIA [id number] [address] STATES [facility] aPTT Coag (PPP) [Time] 43.8 s High 23.0-32.4 [facility] Comment on above: Order Comment: Speci men Type: BLOOD SPECIMENOrdering Facility: [facility] Address: [address] [place] [address] Performed By: #### 1 4979-9 ####[facility] [id number] [address] aPTT Coag (PPP) [Time] 35.0 s High 23.0-32.4 [facility] Comment on above: Order Comment: Speci men Type: BLOOD SPECIMENOrdering Facility: [facility] Address: [address] [place] [address] Performed By: #### 1 4979-9 ####[facility] LABORATORYCLIA [id number] [address] [place] ALLIED HEALTHon 08-15-2024 ALLIED HEALTH Normal [facility] CBC W Auto Differential pane l (Bld)on 08-15-2024 Basophils (Bld) [#/Vol] 0.04 10*3/uL Normal <0.11 [facility] Comment on above: Order Comment: Speci men Type: BLOOD SPECIMENOrdering Facility: [facility] Address: [address] [place] [address] Performed By: #### 5 5454-3 ####[facility] LABCLIA [id number] [address] [place]#### 77363-1 ####[facility] LABORATORYCLIA [id number] [address] Basophils/100 WBC (Bld) 0.3 % Normal A [facility] Comment on above: Order Comment: Speci men Type: BLOOD SPECIMENOrdering Facility: [facility] Address: [address] [place] [address] Performed By: #### 5 5454-3 ####[facility] LABCLIA [id number] [place] [address] [place]#### 50513-7 ####[facility] LABORATORYCLIA [id number] [address] [place] Differential cell count method Nom (Bld) Auto Normal [facility] Comment on above: Order Comment: Speci men Type: BLOOD SPECIMENOrdering Facility: [facility] Address: [address] [place] [address] Performed By: #### 5 5454-3 ####[facility] LABCLIA [id number] [address] [place]#### 43086-3 ####[facility] LABORATORYCLIA [id number] [place] [address] [place] Eosinophils (Bld) [#/Vol] 0.23 10*3/uL Normal <0.46 [facility] Comment on above: Order Comment: Speci men Type: BLOOD SPECIMENOrdering Facility: [facility] Address: [address] [place] [address] Performed By: #### 5 5454-3 ####[facility] LABCLIA [id number] [place] [address] [place]#### 81600-3 ####[facility] LABORATORYCLIA [id number] [address] [place] Eosinophils/100 WBC (Bld) 1.9 % Normal [facility] Comment on above: Order Comment: Speci men Type: BLOOD SPECIMENOrdering Facility: [facility] Address: [address] [place] [address] Performed By: #### 5 5454-3 ####[facility] LABCLIA [id number] [address] [place]#### 97115-9 ####[facility] LABORATORYCLIA [id number] [address] [place] [facility] Erythrocyte distribution width (RBC) [Ratio] 13.8 % Normal 11.5-15.0 [facility] Comment on above: Order Comment: Speci men Type: BLOOD SPECIMENOrdering Facility: [facility] Address: [address] [place] [address] Performed By: #### 5 5454-3 ####[facility] LABCLIA [id number] [address] [place]#### 12361-2 ####[facility] LABORATORYCLIA [id number] [address] [place] [facility] Hematocrit (Bld) [Volume fraction] 43.4 % Normal 39.0-51.0 [facility] Comment on above: Order Comment: Speci men Type: BLOOD SPECIMENOrdering Facility: [facility] Address: [address] [place] [address] Performed By: #### 5 5454-3 ####[facility] LABCLIA [id number] [address] [place]#### 63519-9 ####[facility] LABORATORYCLIA [id number] [address] [place] Hemoglobin (Bld) [Mass/Vol] 14.8 g/dL Normal 13.0-17.0 [facility] Comment on above: Order Comment: Speci men Type: BLOOD SPECIMENOrdering Facility: [facility] Address: [address] [place] [address] Performed By: #### 5 5454-3 ####[facility] LABCLIA [id number] [address] [place]#### 42483-9 ####[facility]ORATORYCLIA [id number] [address] [place] Immature granulocytes (Bld) [#/Vol] 0.07 10*3/uL Normal <0.10 [facility] Comment on above: Order Comment: Speci men Type: BLOOD SPECIMENOrdering Facility: [facility] Address: [address] [place] [address] Performed By: #### 5 5454-3 ####[facility] LABCLIA [id number] [place] [address] [place]#### 00369-1 ####[facility]ORATORYCLIA [id number] [address] Immature granulocytes/100 WBC (Bld) 0.6 % Normal [facility] Comment on above: Order Comment: Speci men Type: BLOOD SPECIMENOrdering Facility: [facility] Address: [address] [place] [address] Performed By: #### 5 5454-3 ####[facility] LABCLIA [id number] [place] [address] [place]#### 84118-5 ####[facility] LABORATORYCLIA [id number] [address] [place] Lymphocytes (Bld) [#/Vol] 1.93 10*3/uL Normal 1.00-4.00 [facility] Comment on above: Order Comment: Speci men Type: BLOOD SPECIMENOrdering Facility: [facility] Address: [address] [place] [address] Performed By: #### 5 5454-3 ####[facility] LABCLIA [id number] [place] [address] [place]#### 10688-2 ####[facility]ORATORYCLIA [id number] [address] [place] Lymphocytes/100 WBC (Bld) 16.3 % Normal [facility] Comment on above: Order Comment: Speci men Type: BLOOD SPECIMENOrdering Facility: [facility] Address: [address] [place] [address] Performed By: #### 5 5454-3 ####[facility] LABCLIA [id number] [address]#### 04411-8 ####[facility] LABORATORYCLIA [id number] [address] MCH (RBC) [Entitic mass] 30.8 pg Normal 26.0-34.0 [facility] Comment on above: Order Comment: Speci men Type: BLOOD SPECIMENOrdering Facility: [facility] Address: [address] [place] [address] Performed By: #### 5 5454-3 ####[facility] LABCLIA [id number] [address]#### 60158-6 ####[facility] LABORATORYCLIA [id number] [address] [place] MCHC (RBC) [Mass/Vol] 34.1 g/dL Normal 30.5-36.0 [facility] Comment on above: Order Comment: Speci men Type: BLOOD SPECIMENOrdering Facility: [facility] Address: [address] [place] [address] Performed By: #### 5 5454-3 ####[facility] LABCLIA [id number] [address]#### 04148-5 ####[facility] LABORATORYCLIA [id number] [address] MCV (RBC) [Entitic vol] 90.2 fL Normal 80.0-100.0 [facility] Comment on above: Order Comment: Speci men Type: BLOOD SPECIMENOrdering Facility: [facility] Address: [address] [place] [address] Performed By: #### 5 5454-3 ####[facility] LABCLIA [id number] [address] [place]#### 16730-6 ####[facility] LABORATORYCLIA [id number] [address] STATES [facility] Monocytes (Bld) [#/Vol] 0.87 10*3/uL High <0.87 [facility] Comment on above: Order Comment: Speci men Type: BLOOD SPECIMENOrdering Facility: [facility] Address: [address] [place] [address] Performed By: #### 5 5454-3 ####[facility] LABCLIA [id number] [address] [place]#### 18257-8 ####[facility] LABORATORYCLIA [id number] [address] Monocytes/100 WBC (Bld) 7.3 % Normal A [facility] Comment on above: Order Comment: Speci men Type: BLOOD SPECIMENOrdering Facility: [facility] Address: [address] [place] [address] Performed By: #### 5 5454-3 ####[facility] LABCLIA [id number] [address] [place]#### 78355-6 ####[facility] LABORATORYCLIA [id number] [address] Neutrophils (Bld) [#/Vol] 8.73 10*3/uL High 1.45-7.50 [facility] Comment on above: Order Comment: Speci men Type: BLOOD SPECIMENOrdering Facility: [facility] Address: [address] [place] [address] Performed By: #### 5 5454-3 ####[facility] LABCLIA [id number] [address] [place]#### 93776-8 ####[facility] LABORATORYCLIA [id number] [address] [place] [facility] Neutrophils/100 WBC (Bld) 73.6 % Normal [facility] Comment on above: Order Comment: Speci men Type: BLOOD SPECIMENOrdering Facility: [facility] Address: [address] [place] [address] Performed By: #### 5 5454-3 ####[facility] LABCLIA [id number] [address] [place]#### 46784-9 ####[facility] LABORATORYCLIA [id number] [address] [place] [facility] Nucleated RBC (Bld) [#/Vol] 10*3/uL Normal <0.01 [facility] Comment on above: Order Comment: Speci men Type: BLOOD SPECIMENOrdering Facility: [facility] Address: [address] [place] [address] Performed By: #### 5 5454-3 ####[facility] LABCLIA [id number] [address] [place]#### 44561-1 ####[facility] LABORATORYCLIA [id number] [address] [place] [facility] Nucleated RBC/100 WBC (Bld) [Ratio] 0.0 /100 WBC Normal [facility] Comment on above: Order Comment: Speci men Type: BLOOD SPECIMENOrdering Facility: [facility] Address: [address] [place] [address] Performed By: #### 5 5454-3 ####[facility] LABCLIA [id number] [place] [address] [place]#### 65782-0 ####[facility] LABORATORYCLIA [id number] [place] [address] [place] Platelet mean volume (Bld) [Entitic vol] 9.1 fL Normal 9.0-12.7 [facility] Comment on above: Order Comment: Speci men Type: BLOOD SPECIMENOrdering Facility: [facility] Address: [address] [place] [address] Performed By: #### 5 5454-3 ####[facility] LABCLIA [id number] [address] [place]#### 59116-5 ####[facility] LABORATORYCLIA [id number] [address] Platelets (Bld) [#/Vol] 242 10*3/uL Normal 150-400 [facility] Comment on above: Order Comment: Speci men Type: BLOOD SPECIMENOrdering Facility: [facility] Address: [address] [place] [address] Performed By: #### 5 5454-3 ####[facility] LABCLIA [id number] [address] [place]#### 11950-1 ####[facility] LABORATORYCLIA [id number] [place] [address] [place] RBC (Bld) [#/Vol] 4.81 10*6/uL Normal 4.20-6.00 [facility] Comment on above: Order Comment: Speci men Type: BLOOD SPECIMENOrdering Facility: [facility] Address: [address] [place] [address] Performed By: #### 5 5454-3 ####[facility] LABCLIA [id number] [place] [address] [place] [facility] [place]#### 41307-2 ####[facility] LABORATORYCLIA [id number] [address] [place] WBC (Bld) [#/Vol] 11.87 10*3/uL High 3.70-11.00 [facility] Comment on above: Order Comment: Speci men Type: BLOOD SPECIMENOrdering Facility: [facility] Address: [address] [place] [address] Performed By: #### 5 5454-3 ####[facility] LABCLIA [id number] [address] [place]#### 49117-1 ####[facility] LABORATORYCLIA [id number] [address] [place] CONFIRM BLOOD TYPEon 025 ABO O Normal [facility] Comment on above: Order Comment: Speci men Type: BLOOD SPECIMENOrdering Facility: [facility] Address: [address] [place] [address] Performed By: #### C ONABO ####[facility] BLOOD BANKCLIA [id number] [place] [address] [place] Rh Nom (Bld) Positive Normal [facility] Comment on above: Order Comment: Speci men Type: BLOOD SPECIMENOrdering Facility: [facility] Address: [address] [place] [address] Performed By: #### C ONABO ####[facility] BLOOD BANKCLIA [id number] [address] [place] CT BRAIN WO IVCONon 08-16-19 CT BRAIN WO IVCON Normal [facility] CT CERVICAL SPINE WO IVCONon 08-15-2024 CT CERVICAL SPINE WO IVCON Normal [facility] CTA CHEST (NON GATED) W IVCO N PEon 08-15-2024 CTA CHEST (NON GATED) W IVCON PE Normal [facility] Comprehensive metabolic 2000 panelon 08-15-2024 Albumin [Mass/Vol] 3.7 g/dL Low 3.9-4.9 [facility] Comment on above: Order Comment: Speci men Type: BLOOD SPECIMENOrdering Facility: [facility] Address: [address] [place] [address] Performed By: #### 3 3762-6, 49206-8, 76473-1 ####[facility] LABORATORYCLIA [id number] [place] [address] [place] ALP [Catalytic activity/Vol] 68 U/L Normal 38-113 [facility] Comment on above: Order Comment: Speci men Type: BLOOD SPECIMENOrdering Facility: [facility] Address: [address] [place] [address] Performed By: #### 3 3762-6, , ####[facility] LABORATORYCLIA [id number] [place] [address] [place] ALT With P-5'-P [Catalytic activity/Vol] 31 U/L Normal 10-54 [facility] Comment on above: Order Comment: Speci men Type: BLOOD SPECIMENOrdering Facility: [facility] Address: [address] [place] [address] Performed By: #### 3 3762-6, , ####[facility] LABORATORYCLIA [id number] [address] STATES OF [facility] Anion gap [Moles/Vol] 15 mmol/L Normal 8-15 [facility] Comment on above: Order Comment: Speci men Type: BLOOD SPECIMENOrdering Facility: [facility] Address: [address] [place] [address] Performed By: #### 3 3762-6, , ####[facility] LABORATORYCLIA [id number] [address] [place] AST With P-5'-P [Catalytic activity/Vol] Normal [facility] Comment on above: Order Comment: Speci men Type: BLOOD SPECIMENOrdering Facility: [facility] Address: [address] [place] [address] Result Comment: Unab le to assay due to interference from hemolysis. Suggest reorder as clinically indicated. Performed By: #### 3 3762-6, , ####[facility] LABORATORYCLIA [id number] [place] [address] [place] Bilirubin [Mass/Vol] 0.4 mg/dL Normal 0.2-1.3 [facility] Comment on above: Order Comment: Speci men Type: BLOOD SPECIMENOrdering Facility: [facility] Address: [address] [place] [address] Performed By: #### 3 3762-6, , ####[facility] LABORATORYCLIA [id number] [place] [address] [place] Calcium [Mass/Vol] 9.1 mg/dL Normal 8.5-10.2 [facility] Comment on above: Order Comment: Speci men Type: BLOOD SPECIMENOrdering Facility: [facility] Address: [address] [place] [address] Performed By: #### 3 3762-6, , ####[facility] LABORATORYCLIA [id number] [place] [address] [place] Chloride [Moles/Vol] 99 mmol/L Normal 98-107 [facility] Comment on above: Order Comment: Speci men Type: BLOOD SPECIMENOrdering Facility: [facility] Address: [address] [place] [address] Performed By: #### 3 3762-6, , ####[facility] LABORATORYCLIA [id number] [place] [address] [place] CO2 [Moles/Vol] 19 mmol/L Low 22-30 [facility] Comment on above: Order Comment: Speci men Type: BLOOD SPECIMENOrdering Facility: [facility] Address: [address] [place] [address] Performed By: #### 3 3762-6, , ####[facility] LABORATORYCLIA [id number] [place] [address] [place] Creatinine [Mass/Vol] 1.23 mg/dL High 0.73-1.22 [facility] Comment on above: Order Comment: Speci men Type: BLOOD SPECIMENOrdering Facility: [facility] Address: [address] [place] [address] Performed By: #### 3 3762-6, , ####[facility]ITAL[facility] [id number] [address] OF [facility] Creatinine and Glomerular filtration rate.predicted panel (S/P/Bld) 64 mL/min/1.73m??? Normal >=60 [facility] Comment on above: Order Comment: Simranadonis riggins Type: BLOOD SPECIMENOrdering Facility: [facility] Address: [address] [place] [address] Result Comment: Apple mated Glomerular Filtration Rate [...] accurately reflect actual GFR. Performed By: #### 3 3762-6, , ####[facility] [id number] [address] STATES OF [facility] Glucose [Mass/Vol] 241 mg/dL High 74-99 [facility] Comment on above: Order Comment: Yojana riggins Type: BLOOD SPECIMENOrdering Facility: [facility] Address: [address] [place] [address] Result Comment: The [place] [employer] (ADA) provides guidance for cutoff [...] Standards of Medical Care in Diabetes 2016, [place] [employer]. Diabetes Care. 2016.39(Suppl 1). Performed By: #### 3 3762-6, , ####[facility]ITALIA [id number] [place] [address] [place] Potassium [Moles/Vol] 4.5 mmol/L Normal 3.7-5.1 [facility] Comment on above: Order Comment: Speci men Type: BLOOD SPECIMENOrdering Facility: [facility] Address: [address] [place] [address] Performed By: #### 3 3762-6, , ####[facility] LABORATORYCLIA [id number] [place] [address] [place] Protein [Mass/Vol] 7.4 g/dL Normal 6.3-8.0 [facility] Comment on above: Order Comment: Speci men Type: BLOOD SPECIMENOrdering Facility: [facility] Address: [address] [place] [address] Performed By: #### 3 3762-6, , ####[facility] LABORATORYCLIA [id number] [place] [address] [place] Sodium [Moles/Vol] 133 mmol/L Low 136-144 [facility] Comment on above: Order Comment: Speci men Type: BLOOD SPECIMENOrdering Facility: [facility] Address: [address] [place] [address] Performed By: #### 3 3762-6, , ####[facility] LABORATORYCLIA [id number] [place] [address] [place] Urea nitrogen [Mass/Vol] 29 mg/dL High 9-24 [facility] Comment on above: Order Comment: Speci men Type: BLOOD SPECIMENOrdering Facility: [facility] Address: [address] [place] [address] Performed By: #### 3 3762-6, , ####[facility] LABORATORYCLIA [id number] [place] [address] [place] ECG COMPLETEon 08-15-2024 ECG COMPLETE Normal [facility] ED NOTEon 08-15-2024 ED NOTE HNO ID: [id number] Author: REKHA FLORES RN Service: ? Author Type: Registered Nurse Type: ED Notes Filed: 08/15/2024 23:47 Note Text: Pt informed of NPO after midnight order, pt given food and drink at this time [facility] ED NOTE HNO ID: [id number] Author: REKHA FLORES RN Service: ? Author Type: Registered Nurse Type: ED Notes Filed: 08/15/2024 22:30 Note Text: CVICU attending and resident at bedside [facility] ED NOTE HNO ID: [id number] Author: REKHA FLORES RN Service: ? Author Type: Registered Nurse Type: ED Notes Filed: 08/15/2024 21:37 Note Text: ED resident Dr. Morillo spoke to CVICU resident that returned the page. [facility] ED NOTE [facility] ED NOTE HNO ID: [id number] Author: REKHA FLORES RN Service: ? Author Type: Registered Nurse Type: ED Notes Filed: 08/15/2024 20:41 Note Text: Physician stated to wait until CT brain results in order to start heparin gtt [facility] ED NOTE HNO ID: [id number] Author: REKHA FLORES RN Service: ? Author Type: Registered Nurse Type: ED Notes Filed: 08/15/2024 20:05 Note Text: CT notified [facility] ED NOTE HNO ID: [id number] Author: REKHA FLORES RN Service: ? Author Type: Registered Nurse Type: ED Notes Filed: 08/15/2024 19:31 Note Text: Pt not going to [facility], stemi alert cancelled by attending physician [facility] ED NOTE HNO ID: [id number] Author: REKHA FLORES RN Service: ? Author Type: Registered Nurse Type: ED Notes Filed: 08/15/2024 19:30 Note Text: Bolt Sawyer at bedside, Dr. Tomas [facility] ED NOTE HNO ID: [id number] Author: REKHA FLORES RN Service: ? Author Type: Registered Nurse Type: ED Notes Filed: 08/15/2024 19:12 Note Text: Cardiology resident at bedside Normal [facility] ED NOTE Normal [facility] ED NOTE HNO ID: [id number] Author: COLIN HERBERT RN Service: ? Author Type: Registered Nurse Type: ED Notes Filed: 08/15/2024 19:08 Note Text: Bed: 08-ED Expected date: Expected time: Means of arrival: Comments: STEMI? Normal [facility] ED PROV NOTEon 08-15-2024 ED PROV NOTE Normal [facility] ED PROV NOTE Normal Down [facility] HIGH SENSITIVITY TROPONIN T (INITIAL)on 08-15-2024 Troponin T.cardiac High sensitivity method [Mass/Vol] 433 ng/L High <12 [facility] Comment on above: Order Comment: Speci men Type: BLOOD SPECIMENOrdering Facility: [facility] Address: [address] [place] [address] Performed By: #### L [id number] ####[facility] LABORATORYCLIA [id number] [address] HIGH SENSITIVITY TROPONIN T (SECOND)on 08-15-2024 Troponin T.cardiac High sensitivity method [Mass/Vol] 367 ng/L High <12 [facility] Comment on above: Order Comment: Speci gilson Type: BLOOD SPECIMENOrdering Facility: [facility] Address: [address] [place] [address] Performed By: #### L [id number] ####[facility] LABORATORYCLIA [id number] [address] HIGH SENSITIVITY TROPONIN T (THIRD) 3 HRS AFTER INITIALon 08-15-2024 Troponin T.cardiac High sensitivity method [Mass/Vol] 387 ng/L High <12 [facility] Comment on above: Order Comment: Speci men Type: BLOOD SPECIMENOrdering Facility: [facility] Address: [address] [place] [address] Performed By: #### L [id number] ####[facility] LABORATORYCLIA [id number] [address] OF [facility] HISTORY PHYSICALon HISTORY PHYSICAL Normal [facility] HbA1c (Bld)on 08-15-2024 Average glucose Estimated from glycated hemoglobin (Bld) [Mass/Vol] 177 mg/dL Normal [facility] Comment on above: Order Comment: Yojana riggins Type: BLOOD SPECIMENOrdering Facility: [facility] Address: [address] [place] [address] Result Comment: eAG: (Estimated average glucose) is a calculated value from HgbA1c and is utility sales representative of the average blood glucose level in the last 2-3 month period. Performed By: #### 5 5454-3 ####[facility] LABCLIA [id number] [address] [place]#### [address]-3 ####[facility] [id number] [address] STATES OF [facility] HbA1c (Bld) [Mass fraction] 7.8 % High 4.3-5.6 [facility] Comment on above: Order Comment: Yojana riggins Type: BLOOD SPECIMENOrdering Facility: [facility] Address: [address] [place] [address] Result Comment: Amer ican Diabetes Association guidelines indicate that patients with HgbA1c in the range 5.7-6.4% are at increased risk for development of diabetes, and intervention by lifestyle modification may be beneficial. HgbA1c greater or equal to 6.5% is considered diagnostic of diabetes. Performed By: #### 5 5454-3 ####[facility] LABCLIA [id number] [address] [place]#### [address]-8 ####[facility] LABORATORYCLIA [id number] [address] [place] Magnesium SerPl-mCncon 08-15 Magnesium [Mass/Vol] 2.2 mg/dL Normal 1.7-2.3 [facility] Comment on above: Order Comment: Yojana riggins Type: BLOOD SPECIMENOrdering Facility: [facility] Address: [address] [place] [address] Performed By: #### 3 3762-6, 64552-8, 62888-2 ####[facility] [id number] [address] NT-proBNP SerPl-ncon 08-15 Natriuretic peptide.B prohormone N-Terminal [Mass/Vol] 3787 pg/mL High <125 [facility] Comment on above: Order Comment: Yojana riggins Type: BLOOD SPECIMENOrdering Facility: [facility] Address: [address] [place] [address] Performed By: #### 3 3762-6, 08595-3, 72207-5 ####[facility] [id number] [address] PT panel Coag (PPP)on 2024 INR Coag (PPP) [Relative time] 1.1 {INR} Normal 0.9-1.3 [facility] Comment on above: Order Comment: Yojana riggins Type: BLOOD SPECIMENOrdering Facility: [facility] Address: [address] [place] [address] Result Comment: Trish min K Antagonist (VKA) Therapeutic Range: INR 2 to 3 (Target INR of 2.5)Note: For patients treated with VKA drugs, such as warfarin, the [place] [employer] 2012 Guideline recommends [...] 2.5 to 3.5 (target INR of 3).Marti BREWER, et al. Chest 2012, 141:7S-47SIlya RESENDEZ, et al. [facility] 2017, 70: 252-289 Performed By: #### 3 4528-0, 27826-9 ####[facility] LABORATORYCLIA [id number] [address] [place] PT Coag (PPP) [Time] 11.6 s Normal 9.7-13.0 [facility] Comment on above: Order Comment: Speci men Type: BLOOD SPECIMENOrdering Facility: [facility] Address: [address] [place] [address] Performed By: #### 3 4528-0, 51998-4 ####[facility] LABORATORYCLIA [id number] [address] TYPE + SCREENon 08-15-2024 ABO O Normal [facility] Comment on above: Order Comment: Speci men Type: BLOOD SPECIMENOrdering Facility: [facility] Address: [address] [place] [address] Performed By: #### T SCR ####[facility] BLOOD BANKCLIA [id number] [address] Rh Nom (Bld) Positive Normal [facility] Comment on above: Order Comment: Speci men Type: BLOOD SPECIMENOrdering Facility: [facility] Address: [address] [place] [address] Performed By: #### T SCR ####[facility] BLOOD BANKCLIA [id number] [address] TYPE AND SCREEN EXPIRATION 08/18/2024 23:59 Normal [facility] Comment on above: Order Comment: Speci men Type: BLOOD SPECIMENOrdering Facility: [facility] Address: [address] [place] [address] Performed By: #### T SCR ####[facility] BLOOD BANKCLIA [id number] [address] OF [place] XR PELVIS 1V APon 08-15-2024 XR PELVIS 1V AP Normal [facility] aPTT PPPon 08-15-2024 aPTT Coag (PPP) [Time] 27.4 s Normal 23.0-32.4 [facility] Comment on above: Order Comment: Speci men Type: BLOOD SPECIMENOrdering Facility: [facility] Address: [address] [id number] Performed By: #### 3 4528-0, 16521-6 ####[facility]OSPITALIA [id number] [place] [address] [facility] Internal Medicine Office Vis itoeris 08-09-2024 Internal Medicine Office Visit [facility] [address] [place] [address] [place] [address] OFFICE VISIT Date of Service: 08/09/24 MR#: [id number] Acct: [id number] Name: ARIS ATKINS Rep #: [id number] : 1955 Provider: AMADO Serra Age/Sex: 69/M Location[place] [facility] Status: Signed Intake Vital Signs 07/10/24 10:21 [...] air Intake Visit 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 Accompanied by: Self Is patient [...] 05/31/2406/04 Rx thyroid (pork) 120 mg tablet (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 06/13/24 [...] History adopted: No household members: other details: richardJennifer housing: house number of children: 1 current occupational status: retired pets and animals: Yes (dogs x 2 ) pets and animals: dog(s) history of recent travel: No Smoking Status: Never smoker second hand exposure: No alcohol intake: current alcohol intake frequency: other Previous attempts at quittin details: once or twice a month caffeine: Yes ("minimal") what type of physical activity do you participate in: walking frequency: daily duration: 30-45 minutes/day seatbelt use: always do you feel safe at home: Yes HPI HPI Details: ARIS ATKINS, is a 69 M who presents to the office today for f/u after an episode at [employer] (patient had called in and we requested he make an appointment today). He states that morning he had gone to [employer] and states that he had not eaten for probably 12-13 hours and he states that during [employer]. HE states that he went to stand up and as soon as he stood up his vision was "swimming". He states that he ended up going [...] GI: N (more content not included)... Normal [facility] Anion gap in Serum or Plasma Ordered By: Mario Bellamy on 07-12-2024 Anion gap [Moles/Vol] 12 mmol/L 5-15 [facility] BUN/creatinine ratioOrdered By: Mario Bellamy on 07-12-2024 Urea nitrogen/Creatinine [Mass ratio] 16.1 mg/mg 10-20 [facility] Bilirubin, totalOrdered By: Mario Bellamy on 07-12-2024 Bilirubin [Mass/Vol] 0.51 mg/dL 0.00-1.30 [facility] CBC-Complete Blood Cnt No Di ffon 07-12-2024 Erythrocyte distribution width (RBC) [Ratio] 13.7 % Normal 11.6-14.6 [facility] Comment on above: Performed By: #### L 506.1001, L100.0500, L500.4100, L501.9910, L500.4050 #### [facility] [address] [place], [address] Hematocrit (Bld) [Volume fraction] 44.2 % Normal 40-54 [facility] Comment on above: Performed By: #### L 506.1001, L100.0500, L500.4100, L501.9910, L500.4050 #### [facility] [address] [place], [address] Hemoglobin (Bld) [Mass/Vol] 15.0 g/dL Normal 13.0-16.5 [facility] Comment on above: Performed By: #### L 506.1001, L100.0500, L500.4100, L501.9910, L500.4050 #### [facility] [address] [place], [address] MCH (RBC) [Entitic mass] 31.1 pg Normal 27.0-32.0 [facility] Comment on above: Performed By: #### L 506.1001, L100.0500, L500.4100, L501.9910, L500.4050 #### [facility] [address] [place], [address] MCHC (RBC) [Mass/Vol] 33.9 g/dL Normal 32-36 [facility] Comment on above: Performed By: #### L 506.1001, L100.0500, L500.4100, L501.9910, L500.4050 #### [facility] [address] [place], [address] MCV (RBC) [Entitic vol] 91.5 fL Normal 80-94 [facility] Comment on above: Performed By: #### L 506.1001, L100.0500, L500.4100, L501.9910, L500.4050 #### [facility] [address] [place], [address] Platelet mean volume (Bld) [Entitic vol] 9.0 fL Normal 6.2-12.0 [facility] Comment on above: Performed By: #### L 506.1001, L100.0500, L500.4100, L501.9910, L500.4050 #### [facility] [address] [place], [address] Platelets (Bld) [#/Vol] 219 10*3/uL Normal 150-450 [facility] Comment on above: Performed By: #### L 506.1001, L100.0500, L500.4100, L501.9910, L500.4050 #### [facility] [address] [place], [address] RBC (Bld) [#/Vol] 4.83 10*6/uL Normal 4.6-6.2 [facility] Comment on above: Performed By: #### L 506.1001, L100.0500, L500.4100, L501.9910, L500.4050 #### [facility] [address] [place], [address] RDW SD 46.0 fl High 35.1-43.9 [facility] Comment on above: Performed By: #### L 506.1001, L100.0500, L500.4100, L501.9910, L500.4050 #### [facility] [address] [place], [address] WBC (Bld) [#/Vol] 8.4 10*3/uL Normal 4.4-11.0 [facility] Comment on above: Performed By: #### L 506.1001, L100.0500, L500.4100, L501.9910, L500.4050 #### [facility] [address] [place], [address] Calculated very low density lipoprotein (VLDL) cholesterol measurementOrdered By: Mario Bellamy on 07-12-2024 Calculated very low density lipoprotein (VLDL) cholesterol measurement 30 mg/dL 5-40 [facility] VLDL Cholesterol 30 mg/dL 5-40 [facility] Carbon dioxide, total [Moles /volume] in Central venous bloodOrdered By: Mario Bellamy on 07-12-2024 CO2 [Moles/Vol] 22.8 mmol/L 21.0-32.0 [facility] Chloride assayOrdered By: Debby Bellamy on 07-12-2024 Chloride [Moles/Vol] 102 mmol/L 98-108 [facility] Comprehensive Metabolic Prof ilon 07-12-2024 Albumin [Mass/Vol] 4.2 g/dL Normal 3.4-4.8 [facility] Comment on above: Performed By: #### L 506.1001, L100.0500, L500.4100, L501.9910, L500.4050 #### [facility] [address] [place], [address] Albumin/Globulin [Mass ratio] 1.2 {ratio} Normal 0.9-2.4 [facility] Comment on above: Performed By: #### L 506.1001, L100.0500, L500.4100, L501.9910, L500.4050 #### [facility] [address] [place], [address] ALK PHOS 80 U/L Normal 40-129 [facility] Comment on above: Performed By: #### L 506.1001, L100.0500, L500.4100, L501.9910, L500.4050 #### [facility] [address] [place], [address] ALT [Catalytic activity/Vol] 67 U/L High <=46 [facility] Comment on above: Performed By: #### L 506.1001, L100.0500, L500.4100, L501.9910, L500.4050 #### [facility] [address] [place], [address] AST [Catalytic activity/Vol] 42 U/L High <=37 [facility] Comment on above: Performed By: #### L 506.1001, L100.0500, L500.4100, L501.9910, L500.4050 #### [facility] [address] [place], [address] Bilirubin [Mass/Vol] 0.51 mg/dL Normal 0.00-1.30 [facility] Comment on above: Performed By: #### L 506.1001, L100.0500, L500.4100, L501.9910, L500.4050 #### [facility] [address] [place], [address] BUN/CRE 16.1 RATIO Normal 10-20 [facility] Comment on above: Performed By: #### L 506.1001, L100.0500, L500.4100, L501.9910, L500.4050 #### [facility] [address] [place], [address] Calcium [Mass/Vol] 9.5 mg/dL Normal 7.6-11.0 [facility] Comment on above: Performed By: #### L 506.1001, L100.0500, L500.4100, L501.9910, L500.4050 #### [facility] [address] [place], [address] Chloride [Moles/Vol] 102 mmol/L Normal 98-108 [facility] Comment on above: Performed By: #### L 506.1001, L100.0500, L500.4100, L501.9910, L500.4050 #### [facility] [address] [place], [address] CO2 [Moles/Vol] 22.8 mmol/L Normal 21.0-32.0 [facility] Comment on above: Performed By: #### L 506.1001, L100.0500, L500.4100, L501.9910, L500.4050 #### [facility] [address] [place], [address] Creatinine [Mass/Vol] 1.29 mg/dL High 0.70-1.20 [facility] Comment on above: Performed By: #### L 506.1001, L100.0500, L500.4100, L501.9910, L500.4050 #### [facility] [address] [place], [address] GAP 12 Normal 5-15 [facility] Comment on above: Performed By: #### L 506.1001, L100.0500, L500.4100, L501.9910, L500.4050 #### [facility] [address] [place], [address] GFR/1.73 sq M.predicted among non-blacks MDRD (S/P/Bld) [Vol rate/Area] 60 mL/min/{1.73_m2} Normal >60 [facility] Comment on above: Result Comment: mL/m in/1.73m2 CKD-EPI Creatinine Equation (2020) Performed By: #### L 506.1001, L100.0500, L500.4100, L501.9910, L500.4050 #### [facility] [address] [place], [address] Globulin (S) [Mass/Vol] 3.6 g/dL Normal 2.2-4.2 [facility] Comment on above: Performed By: #### L 506.1001, L100.0500, L500.4100, L501.9910, L500.4050 #### [facility] [address] [place], [address] Glucose [Mass/Vol] 187 mg/dL High 70-99 [facility] Comment on above: Performed By: #### L 506.1001, L100.0500, L500.4100, L501.9910, L500.4050 #### [facility] [address] [place], [address] Potassium [Moles/Vol] 4.8 mmol/L Normal 3.3-5.1 [facility] Comment on above: Performed By: #### L 506.1001, L100.0500, L500.4100, L501.9910, L500.4050 #### [facility] [address] [place], [address] Sodium [Moles/Vol] 136 mmol/L Normal 133-145 [facility] Comment on above: Performed By: #### L 506.1001, L100.0500, L500.4100, L501.9910, L500.4050 #### [facility] [address] [place], [address] T PROT 7.7 g/dL Normal 5.9-8.4 [facility] Comment on above: Performed By: #### L 506.1001, L100.0500, L500.4100, L501.9910, L500.4050 #### [facility] [address] [place], [address] Urea nitrogen [Mass/Vol] 21 mg/dL High 4-19 [facility] Comment on above: Performed By: #### L 506.1001, L100.0500, L500.4100, L501.9910, L500.4050 #### [facility] [address] [place], [address] Erythrocyte distribution wid th (RBC) [Ratio]Ordered By: Mario Bellamy on 07-12-2024 Erythrocyte distribution width (RBC) [Entitic vol] 46.0 fL High 35.1-43.9 [facility] Erythrocyte distribution wid th ratioOrdered By: Mario Bellamy on 07-12-2024 Erythrocyte distribution width (RBC) [Ratio] 13.7 % 11.6-14.6 [facility] Erythrocyte distribution wid th standard deviationOrdered By: Mario Bellamy on 07-12-2024 Erythrocyte distribution width (RBC) [Ratio] 46.0 fl High 35.1-43.9 [facility] GFR/1.73 sq M.predicted gregor g non-blacks MDRD (S/P/Bld) [Vol rate/Area]Ordered By: Mario Bellamy on 07-12-2024 Estimated GFR (MDRD) Non-Af Amer 60 >60 [facility] Comment on above: mL/min/1.73m2 CKD-EP I Creatinine Equation (2020) Glomerular filtration rate ( GFR) estimation/1.73 sq m using serum, plasma, or whole bOrdered By: Mario Bellamy on 07-12-2024 GFR/1.73 sq M.predicted among non-blacks MDRD (S/P/Bld) [Vol rate/Area] 60 mL/min/{1.73_m2} >60 [facility] Comment on above: mL/min/1.73m2 CKD-EP I Creatinine Equation (2020) Hematocrit Auto (Bld) [Volum e fraction]Ordered By: Mario Bellamy on 07-12-2024 Hematocrit (Bld) [Volume fraction] 44.2 % 40-54 [facility] Hemoglobin measurementOrdere d By: Mario Bellamy on 07-12-2024 Hemoglobin (Bld) [Mass/Vol] 15.0 g/dL 13.0-16.5 [facility] LDL calc ser/plasOrdered By: Mario Bellamy on 07-12-2024 Cholesterol in LDL [Mass/Vol] 119 mg/dL [facility] Comment on above: Vjsemkssvi=818-348 m g/dL & Higher Tiwp=294 mg/dL or greater LDL Cholesterol, Calculated 119 mg/dL [facility] Comment on above: Odydfxioad=375-219 m g/dL & Higher Jbvc=961 mg/dL or greater Laboratory - Chemistry and C hemistry - challengeOrdered By: Mario Bellamy on 07-12-2024 AST [Catalytic activity/Vol] 42 U/L High <38 [facility] Lipid Profileon 07-12-2024 CHOL:HDL 5.38 Normal [facility] Comment on above: Performed By: #### L 506.1001, L100.0500, L500.4100, L501.9910, L500.4050 #### [facility] [address] [place], [address] Cholesterol [Mass/Vol] 184 mg/dL Normal <=200 [facility] Comment on above: Result Comment: Chol esterol level, Desirable <200 mg/dL Borderline high cholesterol 200-239 mg/dL High cholesterol >=240 mg/dL Recommendations of the NCEP Adult Treatment Panel for the following risk-cutoff thresholds for the [place] population. Performed By: #### L 506.1001, L100.0500, L500.4100, L501.9910, L500.4050 #### [facility] [address] [place], [address] Cholesterol in HDL [Mass/Vol] 34 mg/dL Low [facility] Comment on above: Result Comment: Leanna onal Cholesterol Education Program (NCEP) guidelines: <40 mg/dL: Low HDL-cholesterol (major risk factor for CHD) >= 60 mg/dL: High HDL-cholesterol (negative risk factor for CHD) HDL-cholesterol is affected by a number of factors, e.g. smoking, exercise, hormones, sex and age. Performed By: #### L 506.1001, L100.0500, L500.4100, L501.9910, L500.4050 #### [facility] [address] [place], [address] Cholesterol in LDL [Mass/Vol] 119 mg/dL Normal [facility] Comment on above: Result Comment: Bord xvkhce=719-031 mg/dL Higher Dccv=627 mg/dL or greater Performed By: #### L 506.1001, L100.0500, L500.4100, L501.9910, L500.4050 #### [facility] [address] [place], [place], [address] Cholesterol in VLDL [Mass/Vol] 30 mg/dL Normal 5-40 [facility] Comment on above: Performed By: #### L 506.1001, L100.0500, L500.4100, L501.9910, L500.4050 #### [facility] [address] [place], [address] Triglyceride [Mass/Vol] 152 mg/dL Normal [facility] Comment on above: Result Comment: The drugs N-Acetylcysteine and Metamizole may falsely depress this assay. Normal range: <150 mg/dL Borderline High: 150-199 mg/dL High: 200-499 mg/dL Very High: >500 mg/dL Performed By: #### L 506.1001, L100.0500, L500.4100, L501.9910, L500.4050 #### [facility] [address] [place], [address] MCV (mean corpuscular volume ) determinationOrdered By: Mario Bellamy on 07-12-2024 MCV (RBC) [Entitic vol] 91.5 fL 80-94 [facility] Mean corpuscular hemoglobin (MCH) determinationOrdered By: Mario Bellamy on 07-12-2024 MCH (RBC) [Entitic mass] 31.1 pg 27.0-32.0 [facility] Mean corpuscular hemoglobin concentration (MCHC) determinationOrdered By: Mario Bellamy on 07-12-2024 MCHC (RBC) [Mass/Vol] 33.9 g/dL 32-36 [facility] Mean platelet volume determi nationOrdered By: Mario Bellamy on 07-12-2024 Platelet mean volume (Bld) [Entitic vol] 9.0 fL 6.2-12.0 [facility] PSA, total screeningOrdered By: Mario Bellamy on 07-12-2024 Prostate Specific Antigen Screen 2.28 ng/mL 0.02-4.00 [facility] Comment on above: This test was perfor [...] 07-12-2024 PSA,TOT SCREEN 2.28 ng/mL Normal 0.02-4.00 [facility] Comment on above: Result Comment: This test was performed using the [employer] tPSA method. Measured values of a patient??sample can vary depending on the testing procedure used. PSA values determined on patient samples by different testing procedures cannot be used interchangeably. If there is a change in PSA assays while monitoring therapy, sequential testing should be performed to confirm baseline values. Performed By: #### L 506.1001, L100.0500, L500.4100, L501.9910, L500.4050 #### [facility] [address] [place], [address] Platelet countOrdered By: Debby Bellamy on 07-12-2024 Platelets (Bld) [#/Vol] 219 10*3/uL 150-450 [facility] Potassium (Unsp spec) [Mass/ Vol]Ordered By: Mario Bellamy on 07-12-2024 Potassium [Moles/Vol] 4.8 mmol/L 3.3-5.1 [facility] Potassium measurement (mass/ volume)Ordered By: Mario Bellamy on 07-12-2024 Potassium (Unsp spec) [Mass/Vol] 4.8 mmol/L 3.3-5.1 [facility] RBC Auto (Bld) [#/Vol]Ordere d By: Mario Bellamy on 07-12-2024 RBC (Bld) [#/Vol] 4.83 10*6/uL 4.6-6.2 [facility] Screening total cholesterol/ high density lipoprotein (HDL) cholesterol ratioOrdered By: Mario Bellamy on 07-12-2024 Cholesterol.total/Choles terol in HDL [Mass ratio] 5.38 {ratio} [facility] Serum creatinine measurement (mass/volume)Ordered By: Mario Bellamy on 07-12-2024 Creatinine [Mass/Vol] 1.29 mg/dL High 0.70-1.20 [facility] Serum globulin measurementOr dered By: Mario Bellamy on 07-12-2024 Globulin (S) [Mass/Vol] 3.6 g/dL 2.2-4.2 [facility] Serum glucose measurement (m ass/volume)Ordered By: Mario Bellamy on 07-12-2024 Glucose [Mass/Vol] 187 mg/dL High 70-99 [facility] Serum or plasma alanine sullivan otransferase (ALT) measurementOrdered By: Mario Bellamy on 07-12-2024 ALT [Catalytic activity/Vol] 67 U/L High <47 [facility] Serum or plasma albumin jolene urement (mass/volume)Ordered By: Mario Bellamy on 07-12-2024 Albumin [Mass/Vol] 4.2 g/dL 3.4-4.8 [facility] Serum or plasma albumin/glob ulin mass ratioOrdered By: Mario Bellamy on 07-12-2024 Albumin/Globulin [Mass ratio] 1.2 {ratio} 0.9-2.4 [facility] Serum or plasma alkaline janae sphatase measurementOrdered By: Mario Bellamy on 07-12-2024 ALP [Catalytic activity/Vol] 80 U/L 40-129 [facility] Serum or plasma calcium jolene urement (mass/volume)Ordered By: Mario Bellamy on 07-12-2024 Calcium [Mass/Vol] 9.5 mg/dL 7.6-11.0 [facility] Serum or plasma cholesterol in HDL measurement (mass/volume)Ordered By: Mario Bellamy on 07-12-2024 Cholesterol in HDL [Mass/Vol] 34 mg/dL Low >40 [facility] Comment on above: National Cholesterol Education Program (NCEP) guidelines:<40 mg/dL: Low HDL-cholesterol (major risk factor for CHD)>= 60 mg/dL: High HDL-cholesterol (negative risk factor for CHD)HDL-cholesterol is affected by a number of factors, e.g. smoking, exercise, hormones, sex and age. Serum or plasma cholesterol measurement (mass/volume)Ordered By: Mario Bellamy on 07-12-2024 Cholesterol [Mass/Vol] 184 mg/dL <201 [facility] Comment on above: Cholesterol level, D esirable <200 mg/dLBorderline high cholesterol 200-239 mg/dLHigh cholesterol >=240 mg/dLRecommendations of the NCEP Adult Treatment Panel for the following risk-cutoff thresholds for the [place] population. Serum or plasma urea nitroge n measurement (mass/volume)Ordered By: Mario Bellamy on 07-12-2024 Urea nitrogen [Mass/Vol] 21 mg/dL High 4-19 [facility] Sodium levelOrdered By: Slim Bellamy on 07-12-2024 Sodium [Moles/Vol] 136 mmol/L 133-145 [facility] Total proteinOrdered By: Luis Alberto Bellamy on 07-12-2024 Protein [Mass/Vol] 7.7 g/dL 5.9-8.4 [facility] Triglycerides measurementOrd ered By: Mario Bellamy on 07-12-2024 Triglyceride [Mass/Vol] 152 mg/dL <199 [facility] Comment on above: The drugs N-Acetylcy steine and Metamizole may falsely depress this assay. Normal range: <150 mg/dLBorderline High: 150-199 mg/dLHigh: 200-499 mg/dLVery High: >500 mg/dL Vitamin D, 25-hydroxyOrdered By: Mario Bellamy on 07-12-2024 Vitamin D 25-Hydroxy 32.0 ng/mL 30-100 [facility] Comment on above: Vitamin D StatusDefi ciency: <20 ng/mL (50nmol/L)Insufficiency: 20-30 ng/mL (50-75 nmol/L)Sufficiency: 30-100 ng/mL (75-250 nmol/L)Toxicity: >100 ng/mL (>250 nmol/L) Vitamin D,25 Hydroxyon 07-12 Vitamin D 25-OH 32.0 ng/mL Normal 30-100 [facility] Comment on above: Result Comment: Trish min D Status Deficiency: <20 ng/mL (50nmol/L) Insufficiency: 20-30 ng/mL (50-75 nmol/L) Sufficiency: 30-100 ng/mL (75-250 nmol/L) Toxicity: >100 ng/mL (>250 nmol/L) Performed By: #### M 100.637 #### [facility] [place], [address] White blood cell (WBC) count Ordered By: Mario Bellamy on 07-12-2024 WBC (Bld) [#/Vol] 8.4 10*3/uL 4.4-11.0 [facility] Internal Medicine Office Vis iton 07-10-2024 Internal Medicine Office Visit [facility] [address] [place] [address] [place] [address] OFFICE VISIT Date of Service: 07/10/24 MR#: [id number] Acct: [id number] Name: ARIS ATKINS Rep #: [id number] : 1955 Provider: AMADO Serra Age/Sex: 69/M Location: [facility] Status: Signed Intake Vital Signs 04/12/24 11:05 [...] 3 M FU 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 Normal [facility] - Hematology and Cell countson 04-12-2024 HbA1c (Bld) [Mass fraction] 9.6 % High 4.2-6.3 [facility] Absolute lymphocyte countOrd ered By: Mario Blelamy on 07-12-2023 Lymphocytes Auto (Unsp spec) [#/Vol] 1.41 10*3/uL 0.83-4.51 [facility] Automated lymphocyte count a s percentage of total leukocytesOrdered By: Mario Bellamy on 07-12-2023 Lymphocytes/100 WBC Auto (Unsp spec) 20.8 % 19-41 [facility] Basophil percentageOrdered B y: Mario Bellamy on 07-12-2023 Basophils/100 WBC (Bld) 0.4 % 0-1 [facility] Bilirubin [Mass/Vol] 0.50 mg/dL 0.20-1.00 [facility] Comment on above: For patients on eltr ombopag therapy, use of Dimension [place] TBIL is not recommended. Chloride [Moles/Vol] 105 mmol/L 98-107 [facility] Cholesterol [Mass/Vol] 183 mg/dL <200 [facility] Comment on above: <200 mg/dL Desirable 200-240 mg/dL Borderline >240 mg/dL High Risk Eosinophils/100 WBC (Bld) 4.9 % 0-5 [facility] Glucose [Mass/Vol] 176 mg/dL 74-106 [facility] Comment on above: Fasting Glucose resu lt greater than or equal to 126 mg/dL suggests DIABETES MELLITUS per A.D.A. criteria. Hemoglobin (Bld) [Mass/Vol] 13.6 g/dL 13.0-16.5 [facility] Monocytes/100 WBC (Bld) 7.2 % 0-10 [facility] Neutrophils (Bld) [#/Vol] 4.5 10*3/uL 2.0-7.7 [facility] Neutrophils/100 WBC (Bld) 66.1 % 47-70 [facility] Potassium [Moles/Vol] 4.4 mmol/L 3.5-5.1 [facility] Protein [Mass/Vol] 7.8 g/dL 6.4-8.2 [facility] Sodium [Moles/Vol] 138 mmol/L 136-145 [facility] Triglyceride [Mass/Vol] 205 mg/dL <199 [facility] Comment on above: The drugs N-Acetylcy steine and Metamizole may falsely depress this assay.Serum Triglycerides Reference Interval Normal <150 mg/dL Borderline high 150 - 199 mg/dL High 200 - 499 mg/dL Very High > or = 500 mg/dL WBC (Bld) [#/Vol] 6.8 10*3/uL 4.4-11.0 [facility] Determination of erythrocyte mean corpuscular volume (MCV)Ordered By: Mario Bellamy on 07-12-2023 MCV (RBC) [Entitic vol] 90.5 fL 80-94 [facility] Erythrocyte distribution wid th ratioOrdered By: Mario Bellamy on 07-12-2023 Erythrocyte distribution width (RBC) [Ratio] 14.4 % 11.6-14.6 [facility] Erythrocyte distribution wid th standard deviationOrdered By: Mario Bellamy on 07-12-2023 Erythrocyte distribution width (RBC) [Entitic vol] 46.5 fL 35.1-43.9 [facility] Hematocrit Auto (Bld) [Volum e fraction]Ordered By: Mario Bellamy on 07-12-2023 Hematocrit (Bld) [Volume fraction] 40.2 % 40-54 [facility] Immature granulocytes/100 WB C Auto (Bld)Ordered By: Mario Bellamy on 07-12-2023 Immature granulocytes/100 WBC (Bld) 0.600 % 0.0-0.9 [facility] Comment on above: IG% - Immature Granu locytes (promyelocytes, myelocytes and metamyelocytes) > 1% indicates that a LEFT SHIFT is Present. Laboratory - Chemistry and C hemistry - challengeOrdered By: Mario Bellamy on 07-12-2023 Albumin/Globulin [Mass ratio] 0.9 {ratio} 0.9-2.4 [facility] ALP [Catalytic activity/Vol] 79 U/L 45-117 [facility] ALT [Catalytic activity/Vol] 50 U/L 16-61 [facility] Cholesterol in HDL [Mass/Vol] 37 mg/dL >40 [facility] Comment on above: The drugs N-Acetylcy steine and Metamizole may falsely depress this assay. Reference Range HDL <40 mg/dL Low HDL Cholesterol HDL >or= 60 mg/dL High HDL Cholesterol Cholesterol in LDL [Mass/Vol] 105 mg/dL 0-130 [facility] CO2 [Moles/Vol] 28.0 mmol/L 21.0-32.0 [facility] Globulin (S) [Mass/Vol] 4.2 g/dL 2.2-4.2 [facility] Urea nitrogen/Creatinine [Mass ratio] 13.0 mg/mg 10-20 [facility] - Hematology and Cell countsOrdered By: Mario Bellamy on 07-12-2023 MCH (RBC) [Entitic mass] 30.6 pg 27.0-32.0 [facility] MCHC (RBC) [Mass/Vol] 33.8 g/dL 32-36 [facility] Nucleated RBC/100 WBC (Bld) [Ratio] 0 % 0-5 [facility] Platelet mean volume (Bld) [Entitic vol] 8.6 fL 6.2-12.0 [facility] Platelets (Bld) [#/Vol] 188 10*3/uL 150-450 [facility] No Panel InformationOrdered By: Mario Bellamy on 07-12-2023 Estimated GFR (MDRD) Amer 75 mL/min >60 [facility] Comment on above: GFR Calc Estimated GFR (MDRD) Non-Af Amer 62 mL/min >60 [facility] Comment on above: Non- GFR Calc Prostate Specific Antigen Screen 3.16 ng/mL 0.00-4.00 [facility] Comment on above: This test was perfor med using the TPSA assay method for the[facility] chemistry system. Values obtained with differentassay methods cannot be used interchangably.When changing PSA assays in the course of monitoring apatient, additional sequential testing should be carriedout to confirm baseline values. VLDL Cholesterol 41 mg/dL 5-40 [facility] RBC Auto (Bld) [#/Vol]Ordere d By: Mario Bellamy on 07-12-2023 RBC (Bld) [#/Vol] 4.44 10*6/uL 4.6-6.2 [facility] Serum or plasma calcium jolene urement (mass/volume)Ordered By: Mario Bellamy on 07-12-2023 Calcium [Mass/Vol] 9.1 mg/dL 8.5-10.1 [facility] Serum or plasma creatinine m easurement (mass/volume)Ordered By: Mario Bellamy on 07-12-2023 Creatinine [Mass/Vol] 1.23 mg/dL 0.70-1.30 [facility] Comment on above: The validity of the calculated GFR & GFRAA in patients over 70 years has not been determined. Clinical correlation is essential. Serum or plasma urea nitroge n measurement (mass/volume)Ordered By: Mario Bellamy on 07-12-2023 Urea nitrogen [Mass/Vol] 16 mg/dL 7-18 [facility] Thin prep Papanicolaou smear with manual screeningOrdered By: Mario Bellamy on 07-12-2023 Thin prep Papanicolaou smear with manual screening 3.6 g/dL 3.2-5.0 [facility] Thin prep Papanicolaou smear with manual screening 30 U/L 15-37 [facility] Thin prep Papanicolaou smear with manual screening 5 5-15 [facility] - Hematology and Cell countson 06-23-2023 HbA1c (Bld) [Mass fraction] 10.4 % 4.2-6.3 [facility] 36on 11-28-2022 36 Preferred contact number: [phone] Reason for Visit: Pt cx appt for . due to not feeling well. Please call to r/s Message in ecw Urgency of Appointment: n/a Medications in need of refill: n/a Normal [facility] US SOFT TISSUE HEAD/NECK 765 36on 05-15-2017 US SOFT TISSUE HEAD/NECK 605[address] Performed at [facility] APPROVED BY: NOEL SAENZ MD THYROID ULTRASOUND [...] percutaneous FNA. No other abnormality identified. Normal [employer] [facility] IOL BIOMETRY W/ IOL CALC OU (BOTH EYES) [facility] Vital Signs Date Time Vital Sign Value Performing Clinician Facility 01-03-2025 14:59-0400 Body height 177.8 cm Mario FISCHER Work Phone: [facility] 01-03-2025 14:59-0400 Body weight 88.45 kg Mario FISCHER Work Phone: [facility] 01-03-2025 14:22-0400 Body mass index (BMI) [Ratio] 27.9 kg/m2 Mario FISCHER Work Phone: [facility] 01-03-2025 14:09-0400 Diastolic blood pressure 70 mm[Hg] Mario FISCHER Work Phone: [facility] 01-03-2025 14:09-0400 Heart rate 55 /min Mario FISCHER Work Phone: [facility] 01-03-2025 14:09-0400 SaO2% (BldA) [Mass fraction] 98 % Mario FISCHER Work Phone: [facility] 01-03-2025 14:09-0400 Systolic blood pressure 109 mm[Hg] Mario FISCHER Work Phone: [facility] 12-16-2024 11:31-0400 Body mass index (BMI) [Ratio] 30.8 kg/m2 Tani Mendoza MD, PhD Work Phone: [facility] 12-16-2024 11:31-0400 Body weight 94.6 kg Tani Mendoza MD, PhD Work Phone: [facility] 12-16-2024 11:31-0400 Diastolic blood pressure 77 mm[Hg] Tani parmar MD, PhD Work Phone: [facility] 12-16-2024 11:31-0400 Heart rate 76 /min Tani Mendoza MD, PhD Work Phone: [facility] 12-16-2024 11:31-0400 SaO2% (BldA) [Mass fraction] 100 % Tani Mendoza MD, PhD Work Phone: [facility] 12-16-2024 11:31-0400 Systolic blood pressure 128 mm[Hg] Tani Mendoza MD, PhD Work Phone: [facility] 12-11-2024 10:01-0400 Body mass index (BMI) [Ratio] 28.89 kg/m2 Michael Marinelli MD Work Phone: [facility] 12-11-2024 10:01-0400 Body weight 88.72 kg Michael Marinelli MD Work Phone: [facility] 12-11-2024 10:01-0400 Diastolic blood pressure 70 mm[Hg] Michael domínguez MD Work Phone: [facility] 12-11-2024 10:01-0400 Heart rate 55 /min Michael Marinelli MD Work Phone: [facility] 12-11-2024 10:01-0400 SaO2% (BldA) [Mass fraction] 98 % Michael Marinelli MD Work Phone: [facility] 12-11-2024 10:01-0400 Systolic blood pressure 109 mm[Hg] Micheal Marinelli MD Work Phone: [facility] 12-06-2024 14:52-0400 Body height 177.8 cm Mario FISCHER Work Phone: [facility] 12-06-2024 14:52-0400 Body mass index (BMI) [Ratio] 27.9 kg/m2 Mario Wayt PA Work Phone: [facility] 12-06-2024 14:52-0400 Body temperature 96.7 [degF] Mario Wayt PA Work Phone: [facility] 12-06-2024 14:52-0400 Body weight 88.45 kg Mario Wayt PA Work Phone: [facility] 12-06-2024 14:52-0400 Diastolic blood pressure 82 mm[Hg] Mario Wayt PA Work Phone: [facility] 12-06-2024 14:52-0400 Heart rate 67 /min Mario Wayt PA Work Phone: [facility] 12-06-2024 14:52-0400 Respiratory rate 16 /min Mario Wayt PA Work Phone: [facility] 12-06-2024 14:52-0400 SaO2% (BldA) [Mass fraction] 98 % Mario Wayt PA Work Phone: [facility] 12-06-2024 14:52-0400 Systolic blood pressure 120 mm[Hg] Mario Wayt PA Work Phone: [facility] 11-15-2024 13:04-0400 Body height 177.8 cm Mario Wayt PA Work Phone: [facility] 11-15-2024 13:04-0400 Body mass index (BMI) [Ratio] 28.7 kg/m2 Mario Wayt PA Work Phone: [facility] 11-15-2024 13:04-0400 Body temperature 96.6 [degF] Mario Wayt PA Work Phone: [facility] 11-15-2024 13:04-0400 Body weight 90.71 kg Mario Wayt PA Work Phone: [facility] 11-15-2024 13:04-0400 Diastolic blood pressure 72 mm[Hg] Mario Wayt PA Work Phone: [facility] 11-15-2024 13:04-0400 Heart rate 85 /min Mario Wayt PA Work Phone: [facility] 11-15-2024 13:04-0400 Respiratory rate 16 /min Mario Wayt PA Work Phone: [facility] 11-15-2024 13:04-0400 SaO2% (BldA) [Mass fraction] 98 % Mario Wayt PA Work Phone: [facility] 11-15-2024 13:04-0400 Systolic blood pressure 120 mm[Hg] Mario Wayt PA Work Phone: [facility] 10-16-2024 16:10-0400 Body height 177.8 cm Mario Wayt PA Work Phone: [facility] 10-16-2024 16:10-0400 Body mass index (BMI) [Ratio] 29.5 kg/m2 Mario Wayt PA Work Phone: [facility] 10-16-2024 16:10-0400 Body temperature 97.5 [degF] Mario Wayt PA Work Phone: [facility] 10-16-2024 16:10-0400 Body weight 93.44 kg Mario Wayt PA Work Phone: [facility] 10-16-2024 16:10-0400 Diastolic blood pressure 78 mm[Hg] Mario Wayt PA Work Phone: [facility] 10-16-2024 16:10-0400 Heart rate 70 /min Mario Wayt PA Work Phone: [facility] 10-16-2024 16:10-0400 Respiratory rate 16 /min Mario Wayt PA Work Phone: [facility] 10-16-2024 16:10-0400 SaO2% (BldA) [Mass fraction] 99 % Mario Wayt PA Work Phone: [facility] 10-16-2024 16:10-0400 Systolic blood pressure 114 mm[Hg] Mario FISCHER Work Phone: [facility] 10-03-2024 13:10-0400 Body height 175.3 cm Shantell Pistone COMPUTER PUBLISHER.GRINDING MACHINE OPERATOR Work Phone: [facility] 10-03-2024 13:10-0400 Body mass index (BMI) [Ratio] 29.56 kg/m2 Shantell Pistone COMPUTER PUBLISHER.GRINDING MACHINE OPERATOR Work Phone: [facility] 10-03-2024 13:10-0400 Body weight 90.81 kg Shantell Pistone COMPUTER PUBLISHER.GRINDING MACHINE OPERATOR Work Phone: [facility] 10-03-2024 13:10-0400 Diastolic blood pressure 70 mm[Hg] Shantell Piston e COMPUTER PUBLISHER.GRINDING MACHINE OPERATOR Work Phone: [facility] 10-03-2024 13:10-0400 Heart rate 76 /min Shantell Pistone COMPUTER PUBLISHER.GRINDING MACHINE OPERATOR Work Phone: [facility] 10-03-2024 13:10-0400 Respiratory rate 16 /min Shantell Pistone COMPUTER PUBLISHER.GRINDING MACHINE OPERATOR Work Phone: [facility] 10-03-2024 13:10-0400 SaO2% (BldA) [Mass fraction] 96 % Shantell Pistone COMPUTER PUBLISHER.GRINDING MACHINE OPERATOR Work Phone: [facility] 10-03-2024 13:10-0400 Systolic blood pressure 122 mm[Hg] Shantell Pistone COMPUTER PUBLISHER.GRINDING MACHINE OPERATOR Work Phone: [facility] 10-02-2024 08:33-0400 Diastolic blood pressure 74 mm[Hg] Tani parmar MD, PhD Work Phone: [facility] 10-02-2024 08:33-0400 Heart rate 70 /min Tani Mendoza MD, PhD Work Phone: [facility] 10-02-2024 08:33-0400 Respiratory rate 16 /min Tani Mendoza MD, PhD Work Phone: [facility] 10-02-2024 08:33-0400 SaO2% (BldA) [Mass fraction] 99 % Tani Mendoza MD, PhD Work Phone: [facility] 10-02-2024 08:33-0400 Systolic blood pressure 120 mm[Hg] Tani Mendoza MD, PhD Work Phone: [facility] 09-25-2024 13:03-0400 Body temperature 97 [degF] Mario Wayt PA Work Phone: [facility] 09-25-2024 13:03-0400 Body weight 96.16 kg Mario Wayt PA Work Phone: [facility] 09-25-2024 13:03-0400 Diastolic blood pressure 72 mm[Hg] Mario Wayt PA Work Phone: [facility] 09-25-2024 13:03-0400 Heart rate 74 /min Mario Wayt PA Work Phone: [facility] 09-25-2024 13:03-0400 Respiratory rate 16 /min Mario Wayt PA Work Phone: [facility] 09-25-2024 13:03-0400 SaO2% (BldA) [Mass fraction] 97 % Mario Wayt PA Work Phone: [facility] 09-25-2024 13:03-0400 Systolic blood pressure 122 mm[Hg] Mario Wayt PA Work Phone: [facility] 09-16-2024 14:01-0400 Body height 175.3 cm Shantell Byrd APRN.GRINDING MACHINE OPERATOR Work Phone: [facility] Comment on above: patient reports 09-16-2024 14:01-0400 Body mass index (BMI) [Ratio] 31.45 kg/m2 Shantell Byrd APRN.CNP Work Phone: [facility] 09-16-2024 14:01-0400 Body weight 96.62 kg Shantell Byrd APRN.GRINDING MACHINE OPERATOR Work Phone: [facility] Comment on above: patient has a plastic binder on; doesn't have stability 09-16-2024 14:01-0400 Diastolic blood pressure 60 mm[Hg] Shantell hair APRN.GRINDING MACHINE OPERATOR Work Phone: [facility] 09-16-2024 14:01-0400 Heart rate 73 /min Shantell Byrd APRN.GRINDING MACHINE OPERATOR Work Phone: [facility] 09-16-2024 14:01-0400 SaO2% (BldA) [Mass fraction] 99 % Shantell Byrd APRN.GRINDING MACHINE OPERATOR Work Phone: [facility] 09-16-2024 14:01-0400 Systolic blood pressure 110 mm[Hg] Shantell Byrd APRN.GRINDING MACHINE OPERATOR Work Phone: [facility] 08-31-2024 03:57-0400 SaO2% (BldA) [Mass fraction] 98 % [facility] Comment on above: Order Comment: Specimen Type: ARTERIAL B LOOD SPECIMENOrdering Facility: [facility] Address: [address] [place] [address] Performed By: #### A LLBG ####[facility] [id number] [address] 08-30-2024 20:07-0400 SaO2% (BldA) [Mass fraction] 97 % [facility] Comment on above: Order Comment: Specimen Type: ARTERIAL B LOOD SPECIMENOrdering Facility: [facility] Address: [address] [place] [address] Performed By: #### A LLBG ####[facility] [id number] [address] 08-30-2024 14:26-0400 SaO2% (BldA) [Mass fraction] 98 % [facility] Comment on above: Order Comment: Specimen Type: ARTERIAL B LOOD SPECIMENOrdering Facility: [facility] Address: [address] [place] [address] Performed By: #### A LLBG ####[facility] [id number] [place] [address] [place] 08-09-2024 08:07-0400 Body height 177.8 cm Mario Wayt PA Work Phone: [facility] 08-09-2024 08:07-0400 Body mass index (BMI) [Ratio] 30.7 kg/m2 Mario Wayt PA Work Phone: [facility] 08-09-2024 08:07-0400 Body temperature 96.2 [degF] Mario Wayt PA Work Phone: [facility] 08-09-2024 08:07-0400 Body weight 97.29 kg Mario Wayt PA Work Phone: [facility] 08-09-2024 08:07-0400 Diastolic blood pressure 80 mm[Hg] Mario Wayt PA Work Phone: [facility] 08-09-2024 08:07-0400 Heart rate 73 /min Mario Wayt PA Work Phone: [facility] 08-09-2024 08:07-0400 Respiratory rate 16 /min Mario Wayt PA Work Phone: [facility] 08-09-2024 08:07-0400 SaO2% (BldA) [Mass fraction] 96 % Mario Wayt PA Work Phone: [facility] 08-09-2024 08:07-0400 Systolic blood pressure 132 mm[Hg] Mario Wayt PA Work Phone: [facility] 07-10-2024 10:21-0400 Body height 177.8 cm Mario Wayt PA Work Phone: [facility] 07-10-2024 10:21-0400 Body mass index (BMI) [Ratio] 31.4 kg/m2 Mario Wayt PA Work Phone: [facility] 07-10-2024 10:21-0400 Body temperature 95.1 [degF] Mario Wayt PA Work Phone: [facility] 07-10-2024 10:21-0400 Body weight 99.5 kg Mario Wayt PA Work Phone: [facility] 07-10-2024 10:21-0400 Diastolic blood pressure 78 mm[Hg] Mario Wayt PA Work Phone: [facility] 07-10-2024 10:21-0400 Heart rate 76 /min Mario Wayt PA Work Phone: [facility] 07-10-2024 10:21-0400 Respiratory rate 16 /min Mario Wayt PA Work Phone: [facility] 07-10-2024 10:21-0400 SaO2% (BldA) [Mass fraction] 95 % Mario Wayt PA Work Phone: [facility] 07-10-2024 10:21-0400 Systolic blood pressure 124 mm[Hg] Mario Wayt PA Work Phone: [facility] 04-12-2024 11:05-0500 Body mass index (BMI) [Ratio] 32.4 kg/m2 Mario Wayt PA Work Phone: [facility] 04-12-2024 11:05-0500 Body temperature 97.8 [degF] Mario Wayt PA Work Phone: [facility] 04-12-2024 11:05-0500 Body weight 102.51 kg Mario Wayt PA Work Phone: [facility] 04-12-2024 11:05-0500 Diastolic blood pressure 80 mm[Hg] Mario Wayt PA Work Phone: [facility] 04-12-2024 11:05-0500 Heart rate 64 /min Mario Wayt PA Work Phone: [facility] 04-12-2024 11:05-0500 Respiratory rate 16 /min Mario Wayt PA Work Phone: [facility] 04-12-2024 11:05-0500 SaO2% (BldA) [Mass fraction] 97 % Mario Bellamy PA Work Phone: [facility] 04-12-2024 11:05-0500 Systolic blood pressure 136 mm[Hg] Mario Bellamy PA Work Phone: [facility] 06-23-2023 11:04-0400 Body height 177.8 cm PA Mario Bellamy PA Work Phone: [facility] 06-23-2023 11:04-0400 Body mass index (BMI) [Ratio] 30.1 kg/m2 PA Mario Bellamy PA Work Phone: [facility] 06-23-2023 11:04-0400 Body temperature 97.8 [degF] PA Mario Bellamy PA Work Phone: [facility] 06-23-2023 11:04-0400 Body weight 95.25 kg PA Mario Bellamy PA Work Phone: [facility] 06-23-2023 11:04-0400 Diastolic blood pressure 78 mm[Hg] PA Mario Bellamy PA Work Phone: [facility] 06-23-2023 11:04-0400 Heart rate 66 /min PA Mario Bellamy PA Work Phone: [facility] 06-23-2023 11:04-0400 Respiratory rate 16 /min PA Mario Bellamy PA Work Phone: [facility] 06-23-2023 11:04-0400 SaO2% (BldA) [Mass fraction] 98 % PA Mario Bellamy PA Work Phone: [facility] 06-23-2023 11:04-0400 Systolic blood pressure 136 mm[Hg] PA Mario Bellamy PA Work Phone: [facility] Encounters Encounter Date Encounter Type Care Provider Facility Start: 02-18-2025 ambulatory Mario Bellamy PA Facilit y:[facility] Start: 01-29-2025 ambulatory Dave Gaines Facility :[facility] Start: 01-22-2025 End: 01-22-2025 ambulatory Nickolas Renteria [place] Start: 01-18-2025 ambulatory Dave Gaines Facility :[facility] Start: 01-08-2025 End: 01-08-2025 Patient encounter procedure Ritika FISCHER -[facility] Work Phone: Start: 01-08-2025 End: 01-08-2025 ambulatory Mario FISCHER Work Phone: -[facility] Start: 01-08-[address] Dave guerra MD -Cardiac Rehab Work Phone: Start: 01-06-2025 End: 01-07-2025 ambulatory Mario FISCHER Work Phone: -[facility]iac Rehab Start: 01-06-2025 End: 01-07-[address] Dave Gaines MD -Cardiac Rehab Work Phone: Start: 01-03-2025 End: 01-07-[address] Dave Gaines MD -Cardiac Rehab Work Phone: Start: 01-03-2025 End: 01-07-2025 ambulatory Mario FISCHER Work Phone: -Cardiac Rehab Start: 12-24-2024 ambulatory MARIO BELLAMY Facility :[facility] Start: 12-24-2024 End: 12-24-2024 Subsequent hospital visit by physician Card Lab Stress 2 [place] [facility] CARD[facility] Comment on above: Arrived Start: 12-18-2024 End: 12-18-2024 Telephone encounter Cathie Duffy [facility] CARDIOPULMONARY REHAB Comment on above: Cardiac Rehab (Initi al Outreach) Start: 12-16-2024 End: 12-16-2024 Patient encounter procedure Tani Mendoza MD, PhD Work Phone: [facility] Comment on above: Other closed fractur e of oz thoracic vertebra with routine healing, subsequent encounter (Primary Dx) Start: 12-16-2024 End: 12-16-2024 ambulatory TANI MENDOZA Facility:[facility] Start: 12-16-2024 End: 12-16-2024 Subsequent hospital visit by physician Carly Berman [facility] Start: 12-14-2024 End: 12-14-2024 ambulatory Mario FISCHER Work Phone: -Laboratory Specimen Start: 12-14-2024 End: 12-14-2024 Patient encounter procedure Mario FISCHER -Laboratory Specimen Work Phone: Start: 12-14-2024 End: 12-14-2024 ambulatory Mario FISCHER Facility:[facility] Start: 12-11-2024 End: 12-11-2024 ambulatory Mario FISCHER Work Phone: -Laboratory Start: 12-11-2024 End: 12-11-2024 Patient encounter procedure Michael Marinelli MD Work Phone: [facility] Cardiology [facility] Comment on above: Chronic systolic con gestive heart failure (HCC) (Primary Dx); S/P CABG (coronary artery bypass graft); SVT (supraventricular tachycardia) (HCC) Start: 12-11-2024 End: 12-11-2024 ambulatory MARIO BELLAMY Facility:[facility] Start: 12-11-2024 End: 12-11-2024 ambulatory Mario FISCHER Facility:[facility] Start: 12-06-2024 End: 12-06-2024 Patient encounter procedure Mario FISCHER -[facility] Work Phone: Start: 12-06-2024 End: 12-06-2024 ambulatory Mario FISCHER Work Phone: -[facility] Start: 11-21-2024 End: 11-21-2024 Transcribe Orders Mario Bellamy Work Phone: Referring Physician Comment on above: Disorder of urinary system (Primary Dx) Start: 11-15-2024 End: 11-15-2024 Patient encounter procedure Mario FISCHER -[facility] Work Phone: Start: 11-15-2024 End: 11-15-2024 ambulatory Mario FISCHER Work Phone: [facility] Start: 11-13-2024 End: 11-13-2024 ambulatory MARIO BELLAMY Facility:[facility] Start: 10-16-2024 End: 10-16-2024 Patient encounter procedure Mario FISCHER -[facility] Work Phone: Start: 10-16-2024 End: 10-16-2024 ambulatory Mario FISCHER Work Phone: 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); S/P CABG (coronary artery bypass graft) Start: 10-02-2024 End: 10-02-2024 Patient encounter procedure Tani Mendoza MD, PhD Work Phone: [facility] Comment on above: Fracture (Primary Dx ); Encounter for care involving use of rehabilitation procedure Start: 10-02-2024 End: 10-02-2024 ambulatory MARIO BELLAMY Facility:[facility] Start: 10-02-2024 End: 10-02-2024 Subsequent hospital visit by physician Xr [facility] Comment on above: Closed fracture of e ighth thoracic vertebra with routine healing, unspecified fracture morphology, subsequent encounter [S22.069D] Start: 09-30-2024 End: 09-30-2024 Telephone encounter Jeanne Fregoso APRN.GRINDING MACHINE OPERATOR Work Phone: [facility] Comment on above: Appointment Start: 09-25-2024 End: 09-25-2024 Patient encounter procedure Mario FISCHER -[facility] Work Phone: Start: 09-25-2024 End: 09-25-2024 ambulatory Mario FISCHER Work Phone: [facility] Work Phone: Start: 09-23-2024 End: 09-23-2024 Telephone encounter Dave Gaines MD Work Phone: [facility] Comment on above: Appointment (Appoint ment ) Start: 09-20-2024 End: 09-20-2024 Telephone encounter Jeanne Fregoso COMPUTER PUBLISHER.GRINDING MACHINE OPERATOR Work Phone: [facility] Comment on above: Appointment Start: 09-16-2024 End: 09-16-2024 Patient encounter procedure Shantell Byrd LUH.GRINDING MACHINE OPERATOR Work Phone: [facility] Comment on above: 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) (Primary [...] Comment on above: Patient Update (Whitney Conde, [facility] with report/hand-off) Start: 09-16-2024 End: 09-16-2024 ambulatory SHANTELL BYRD Facility:[facility] Start: 09-09-2024 End: 09-09-2024 Telephone encounter Cathie Duffy [facility] CARDI[facility]ARY REH[facility] Comment on above: Cardiac Rehab (Initi al Outreach - to determine location) Start: 09-05-2024 End: 09-20-2024 ambulatory JANAY WEBSTER Facility:[facility] Start: 09-05-2024 End: 09-20-2024 Subsequent hospital visit by physician Janay Webster MD Work Phone: [facility] Start: 09-05-2024 End: 09-05-2024 Admission to same day surgery center Anna Hill APRNRonGRINDING MACHINE OPERATOR Work Phone: [place] [facility] Comment on above: cardiothoracic surge ry Start: 09-05-2024 End: 09-05-2024 E-mail encounter from caregiver Anna Hill APRN.GRINDING MACHINE OPERATOR Work Phone: [place] [facility] Start: 09-05-2024 End: 09-05-2024 Telephone encounter Gabriela Ellie Rylee CONNELL Work Phone: [facility] Comment on above: Home Care (Confirmat ion Call) Start: 08-31-2024 Patient encounter status Gabriela CONNELL Work Phone: [facility] Start: 08-26-2024 End: 08-26-2024 Follow-up encounter Ki Ch MD Work Phone: [place] [facility] Comment on above: Results Start: 08-21-2024 Patient encounter status Dave Gaines MD Work Phone: [facility] Work Phone: Start: 08-20-2024 End: 08-21-2024 Telephone encounter Dave Gaines MD Work Phone: [facility] Comment on above: Orders Start: 08-16-2024 End: 08-19-2024 Telephone encounter Michael Marinelli MD Work Phone: [place] [facility] Start: 08-15-2024 End: 09-05-2024 Evaluation and management of inpatient MOISES GARCIA Facility:[facility] Start: 08-09-2024 End: 08-09-2024 Patient encounter procedure Mario FISCHER -[facility] Work Phone: Start: 08-09-2024 End: 08-09-2024 ambulatory Mario FISCHER Facility:[facility] Start: 07-12-2024 End: 07-12-2024 ambulatory Mario FISCHER Work Phone: [facility] Work Phone: Start: 07-12-2024 End: 07-12-2024 Patient encounter procedure Mario FISCHER -Laboratory, [facility] Start: 07-12-2024 End: 07-12-2024 ambulatory Mario Bellamy PA Facility:[facility] Start: 07-10-2024 End: 07-10-2024 Patient encounter procedure Mario FISCHER -[facility] Work Phone: Start: 07-10-2024 End: 07-10-2024 ambulatory Mario FISCHER [place] Start: 04-12-2024 End: 04-12-2024 Patient encounter procedure Mario FISCHER -[facility] Work Phone: Start: 04-12-2024 End: 04-12-2024 ambulatory Mario FISHCER [place] Start: 07-28-2023 End: 07-28-2023 ambulatory PA Mario FISCHER Work Phone: [facility] Work Phone: Start: 07-28-2023 End: 07-28-2023 Patient encounter procedure PA Mario FISCHER Work Phone: [facility] Work Phone: Start: 07-24-2023 Non-patient / Non-visit PA Mario FISCHER Work Phone: [facility] Work Phone: Start: 07-12-2023 End: 07-12-2023 ambulatory PA Mario Bellamy PA Work Phone: [facility] Work Phone: Start: 07-12-2023 End: 07-12-2023 Patient encounter procedure PA Mario Bellamy PA Work Phone: [facility], [facility] Start: 06-23-2023 End: 06-23-2023 Patient encounter procedure PA Mario FISCHER Work Phone: [facility] Work Phone: Start: 11-28-2022 Telephone encounter Dave Osman MD Work Phone: [facility] Clinical Communication Comment on above: Cancelled Appointmen t (Pt cx appt for 11.29 due to not feeling well. Please call to r/s ) Start: 01-27-2022 Telephone encounter Emilia Winchester MD Work Phone: [facility] Comment on above: Preparations For Madai rafy (IOL Order Right Eye for 02/01/22 surgery) Start: 01-26-2022 Telephone encounter Emilia Winchester MD Work Phone: [facility] Comment on above: Appointment Start: 01-25-2022 Telephone encounter Emilia Winchester MD Work Phone: [facility] Comment on above: Patient Request (josh l) Start: 01-17-2022 End: 01-17-2022 Patient encounter procedure [facility] Work Phone: [facility] Comment on above: 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) Start: 01-14-2022 Telephone encounter Emilia Winchester MD Work Phone: [facility] Comment on above: Appointment (A-scan reminder) Start: 12-20-2021 End: 12-20-2021 Patient encounter procedure Emilia Marroquin MD Work Phone: [facility] Comment on above: Posterior subcapsula r polar age-related cataract of right eye (Primary Dx); Nuclear senile cataract of both eyes; Prediabetes; Refractive error; Regular astigmatism of both eyes; Posterior subcapsular polar age-related cataract, right eye Start: 12-09-2021 End: 12-09-2021 Patient encounter procedure Latha Albarran MD Work Phone: [facility] Comment on above: 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, both eyes (Primary Dx); Myopia of both eyes; Regular astigmatism of both eyes Start: 11-17-2021 End: 11-17-2021 Patient encounter procedure Sissy Peterson OD Work Phone: [facility] Comment on above: Posterior subcapsula r polar age-related cataract of right eye (Primary Dx); Cataract, nuclear sclerotic, both eyes; Vitreous syneresis, bilateral Start: 06-19-2017 End: 06-19-2017 Evaluation and management of inpatient BOB CORNEJODAVIDAntelmo Facility:[facility] Start: 06-06-2017 End: 06-06-2017 Ambulatory BOB FELDMAN Facility:[facility] Start: 05-15-2017 Ambulatory Errol Reardon cility:[facility] Procedures Date Procedure Procedure Detail Performing Clinician Start: 12-14-2024 Clostridium difficil e detection Mario FISCHER Work Phone: Start: 12-14-2024 Nucleic acid assay Slim jian FISCHER Work Phone: Start: 12-14-2024 Iadna-dna/rna gi pth gn multiplex probe tq 6-11 Mario FISCHER Work Phone: Start: 12-11-2024 Ecg routine ecg w/le ast 12 lds w/i&r Michael Marinelli MD Work Phone: Start: 12-11-2024 Endomysial antibody IgA level Mario FISCHER Work Phone: Start: 09-19-2024 Basic metabolic pane [...] Speci men Type: BLOOD SPECIMEN Ordering Facility: [facility] Address: [address] [place] [address] Performed By: #### T SCR #### [facility] CLIA [id number] [address], [place] [id number] [place] [address] Start: 09-07-2024 Blood count complete automated Nelson Veliz APRN Work Phone: Start: 09-06-2024 Basic metabolic pane l calcium total Nelson Veliz APRN Work Phone: Start: 08-31-2024 History of coronary artery bypass grafting S/P CABG (coronary artery bypass graft) Gabriela Garduno CITRUS PEELER Work Phone: Start: 08-31-2024 Electrocardiogram OSMIN BELLAMY Start: 08-29-2024 Antibody screen MARIO BELLAMY Comment on above: Order Comment: Speci men Type: BLOOD SPECIMENOrdering Facility: [facility] Address: [address] [place] [address] Performed By: #### T SCR ####[facility] [id number] [address] Start: 08-25-2024 Antibody screen MARIO BELLAMY Comment on above: Order Comment: Speci men Type: BLOOD SPECIMENOrdering Facility: [facility] Address: [address] [place] [address] Performed By: #### T SCR ####[facility] [id number] [address] Start: 08-16-2024 Electrocardiogram OSMIN BELLAMY Start: 08-15-2024 End: 08-15-2024 Electrocardiogram MARIO BELLAMY Start: 08-15-2024 Antibody screen MARIO BELLAMY Comment on above: Order Comment: Speci men Type: BLOOD SPECIMENOrdering Facility: [facility] Address: [address] [place] [address] Performed By: #### T SCR ####[facility]CLIA [id number] [address] [place] Start: 07-12-2024 Prostate specific an tigen measurement [...] Emilia Marroquin MD Work Phone: Start: 07-27-2020 Michael blackman OD Work Phone: Start: 01-28-2019 Follow-up visit History of coronary artery bypass grafting S/P CABG (coronary artery bypass graft) Shantell Byrd APRN.GRINDING MACHINE OPERATOR Work Phone: History of coronary artery bypass grafting S/P CABG (coronary artery bypass graft) Shantell Byrd APRN.GRINDING MACHINE OPERATOR Work Phone: History of coronary artery bypass grafting S/P CABG (coronary artery bypass graft) Michael Marinelli MD Work Phone: Plan of Treatment Date Care Activity Detail Author Start: 08-16-2025 Hepatitis B surface antibody level LDL Cholesterol [facility] Start: 07-27-2025 Colonoscopy COLONOSCOPY [facility] Start: 07-27-2025 COLORECTAL CANCER SCREENING COLORECTAL CANCER SCREENING [facility] Start: 07-27-2025 Screening for malign ant neoplasm of colon [facility] Start: 03-14-2025 End: 03-14-2025 Patient encounter procedure 03/14/2025 11:00 AM EST Office Visit [facility] [address] [place] [address] Michael Marinelli MD [address] [place] [address] [phone] 3 month follow up- hlk [facility] Comment on above: 3 month follow up- h lk Start: 02-15-2025 Hemoglobin A1c measurement HbA1C [facility] Start: 01-30-2025 End: 01-30-2025 Patient encounter procedure 01/30/2025 7:00 AM EDT Appointment [facility] [address] [place] [address] S/P CABG (coronary artery bypass graft) [Z95.1]; Chronic systolic congestive heart failure (HCC) [I50.22] Cardiology Lab Comment on above: S/P CABG (coronary a rtery bypass graft) [Z95.1]; Chronic systolic congestive heart failure (HCC) [I50.22] Start: 01-08-2025 Protein measurement [facility] Start: 01-06-2025 Registered Recurring Registered Recu rring -Cardiac Rehab Work Phone: Start: 01-04-2025 DIABETES SCREEN DIABETES SCREEN [facility] Start: 01-03-2025 Registered Recurring Registered Recu rring -Cardiac Rehab Work Phone: Start: 12-16-2024 End: 12-16-2024 Patient encounter procedure [facility] Comment on above: XR 1 month follow up xr ay today XR THORACIC AP/LAT/S AYDEN Start: 12-11-2024 End: 12-11-2024 Patient encounter procedure 12/11/2024 10:00 AM EDT Office Visit [facility] [address] [place] [address] Michael Marinelli MD [address] [place] [phone] 3 month follow up, s/p CABG [facility] Comment on above: 3 month follow up, s /p CABG Start: 12-09-2024 Influenza vaccination [facility] Start: 11-13-2024 End: 11-13-2024 Patient encounter procedure [facility] Comment on above: XR fx follow up xray to day Start: 10-03-2024 End: 10-03-2024 Patient encounter procedure 10/03/2024 1:00 PM EDT Office Visit [facility] [address] [place], [place] [phone] Shantell Byrd APRN.GRINDING MACHINE OPERATOR [address] [facility] [address] [place], [place] [phone] 3-4 week F/up - discuss about starting cardiac rehab [facility] Comment on above: 3-4 week F/up - disc uss about starting cardiac rehab Start: 10-02-2024 End: 10-02-2024 Patient encounter procedure [facility] Comment on above: XR THORACIC 2V AP/LA T fx follow up xray to day Start: 09-30-2024 End: 09-30-2024 Patient encounter procedure [facility] Comment on above: XR THORACIC LIMITED 2V AP/LAT follow up xray today XR THORACIC AP/LAT Start: 09-25-2024 Patient referral [facility] Work Phone: Start: 09-25-2024 End: 09-25-2024 Patient encounter procedure 09/25/2024 11:00 AM EDT Office Visit [facility] [address] [place] [phone] Najma Nguyen APRN.GRINDING MACHINE OPERATOR [address] [place], [place] [phone] would like to establish with urology for retension [facility] Comment on above: would like to establ jed with urology for retension Start: 09-16-2024 End: 09-16-2024 Patient encounter procedure 09/16/2024 2:00 PM EDT Office Visit [facility] [address] [place] [address] Shantell Byrd APRN.CNP 1 [facility] [address] [place] [address] 2 weewk p/o - s/p cabg (08/16/24 ok per MF) [facility] Comment on above: 2 weewk p/o - s/p ca bg (08/16/24 ok per MF) Start: 09-10-2024 End: 09-10-2024 Patient encounter procedure [facility] Comment on above: XR THORACIC 2V AP/LA T hospital follow up F x - xray today Start: 08-26-2024 End: 08-26-2024 Cabg w/arterial graft three arterial grafts BYPASS GRAFT ARTERY CORONARY ON-PUMP THREE CORONARY ARTERIAL GRAFTS 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 (HCC) 08/26/2024 7:15 AM EDT [facility] Start: 08-26-2024 End: 08-26-2024 Evaluation and management of inpatient 08/26/2024 7:15 AM EDT - 08/26/2024 2:00 PM EDT Surgery [facility] [address] [place] [address] Dave Gaines MD 1 [facility] [address] [place] [address] BYPASS GRAFT ARTERY CORONARY ON-PUMP THREE CORONARY ARTERIAL GRAFTS [facility] Comment on above: BYPASS GRAFT ARTERY CORONARY ON-PUMP THREE CORONARY ARTERIAL GRAFTS Start: 08-19-2024 End: 08-19-2024 Echo transesophag r-t 2d w/prb img acquisj i&r ECHOCARDIOGRAM TRANSESOPHOGEAL, REAL TIME W/IMAGE DOCUMENT (2D) Mitral valve disease 08/19/2024 2:27 PM EDT [facility] Start: 04-10-2024 Advance Directive Discussion Advance Directive Discussion [facility] Start: 04-10-2024 Medicare Advantage A nnual Wellness Visit Medicare Advantage Annual Wellness Visit [facility] Start: 12-10-2023 Covid-19 Vaccine ( season) Covid-19 Vaccine ( season) [facility] Start: 08-25-2023 Glaucoma screening Dilated Retinal E xam [facility] Start: 06-23-2023 Patient referral [facility] Work Phone: Start: 01-04-2023 End: 06-13-2023 IOL BIOMETRY W/ IOL CALC OU (BOTH EYES) IOL BIOMETRY W/ IOL CALC OU (BOTH EYES) OPHT Imaging Routine Nuclear senile cataract of both eyes Posterior subcapsular polar age-related cataract of right eye Expected: 01/04/2023, Expires: 06/13/2023 [facility] Work Phone: Comment on above: Expected: 01/04/2023 , Expires: 06/13/2023 Start: 12-09-2021 Influenza vaccination INFLUENZA (#1) [facility] Start: 10-12-2021 COVID-19 VACCINE (5 - Booster for Moderna series) COVID-19 VACCINE (5 - Booster for Moderna series) [facility] Start: 07-27-2021 Colonoscopy COLONOSCOPY [facility] Start: 07-27-2021 COLORECTAL CANCER SCREENING COLORECTAL CANCER SCREENING [facility] Start: 04-10-2021 ADVANCE DIRECTIVE DISCUSSION ADVANCE DIRECTIVE DISCUSSION [facility] Start: 04-10-2021 DEPRESSION ASSESSMENT DEPRESSION ASS ESSMENT [facility] Start: 11-24-2020 COVID-19 VACCINE (3 - Booster for Moderna series) COVID-19 VACCINE (3 - Booster for Moderna series) [facility] Start: 02-15-2020 PNEUMOCOCCAL: 65+ (1 - PCV) PNEUMOCOCCAL: 65+ (1 - PCV) [facility] Start: 2015 RSV Vaccine (1 - Ris k 60-74 years 1-dose series) RSV Vaccine (1 - Risk 60-74 years 1-dose series) [facility] Start: 2010 PROSTATE CANCER SCRE ENING DISCUSSION PROSTATE CANCER SCREENING DISCUSSION [facility] Start: 2005 SHINGRIX VACCINE (1 of 2) SCHWARZ GRIX VACCINE (1 of 2) [facility] Start: 02-15-2000 COLOGUARD (FIT-DNA) COLOGUARD (FIT-D NA) [facility] Start: 02-15-[address] COLONOGRAPHY [facility] Start: 02-15-2000 DIABETES SCREEN DIABETES SCREEN [facility] Start: 02-15-2000 FECAL OCCULT BLOOD FECAL OCCULT BLOO D [facility] Start: 02-15-2000 Screening for malign ant neoplasm of colon [facility] Start: 02-15-2000 SIGMOIDOSCOPY SIGMOIDOSCOPY [facility] Start: 1990 LIPID SCREEN LIPID SCREEN [facility] Start: 1974 Pneumococcal Vaccine : 50+ (1 of 2 - PCV) Pneumococcal Vaccine: 50+ (1 of 2 - PCV) [facility] Start: 1974 Urine microalbumin profile [facility] Start: 1973 Annual PCP Team Gear Cutting Machine Set Up Operator maryanne Disease Visit Annual PCP Team Chronic Disease Visit [facility] Start: 1973 Anxiety Screening Anxiety Screening [facility] Start: 1973 Depression Screening Depression Scre ening [facility] Start: 1973 HEPATITIS C SCREENING HEPATITIS C [facility] Start: 1973 Hepatitis C screening Hepatitis C [facility] Start: 1967 Adult depression screening assessment DEPRESSION SCREENING [facility] Start: 1965 Diabetic foot examination Diabetic F oot Exam [facility] Start: 1965 Hepatitis B screening Urine Albumin:Creatinine Ratio [facility] Cabg w/arterial caleb t three arterial grafts BYPASS GRAFT ARTERY CORONARY ON-PUMP THREE CORONARY ARTERIAL GRAFTS 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 (HCC) [facility] CBC W Auto Different ial panel - Blood [facility] CBC W Auto Different ial panel - Blood [facility] Celiac disease screen [facility] Clostridioides diffi cile DNA [Presence] in Unspecified specimen by MADELYN with probe detection [facility] Comprehensive metabo lic 2000 panel - Serum or Plasma [facility] CORNEAL TOPOGRAPHY A TLAS OU (BOTH EYES) CORNEAL TOPOGRAPHY ATLAS OU (BOTH EYES) OPHT Imaging Routine 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 cataract of both eyes 01/17/2022 8:32 AM EDT [facility] Work Phone: CORNEAL TOPOGRAPHY PENTACAM OU (BOTH EYES) CORNEAL TOPOGRAPHY PENTACAM OU (BOTH EYES) OPHT Imaging Routine 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 cataract of both eyes 01/17/2022 8:32 AM EDT [facility] Work Phone: End: 12-11-2025 Echocardiography ECHO Cardiology Routine S/P CABG (coronary artery bypass graft) Chronic systolic congestive heart failure (HCC) 1 Occurrences starting 12/11/2024 until 12/11/2025 [facility] Work Phone: Comment on above: 1 Occurrences starti ng 12/11/2024 until 12/11/2025 Giardia lamblia Ag [Presence] in Stool by Immunoassay [facility] Lipid 1996 panel - S sima or Plasma [facility] OCT MACULA CIRRUS OU (BOTH EYES) OCT MACULA CIRRUS OU (BOTH EYES) OPHT Imaging Routine 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 cataract of both eyes 01/17/2022 8:16 AM EDT [facility] Work Phone: OUTSIDE VENDOR CARDI AC OUTPATIENT EVENT RECORDER OUTSIDE VENDOR CARDIAC OUTPATIENT EVENT RECORDER Holter Routine S/P CABG (coronary artery bypass graft) Chronic systolic congestive heart failure (HCC) SVT (supraventricular tachycardia) (HCC) Ordered: 12/11/2024 [facility] Comment on above: Ordered: 12/11/2024 Ova OR parasites identification [facility] Patient referral [facility] Work Phone: Prostate specific an tigen measurement [facility] Radionuclide imaging of perfusion of myocardium under exercise stress [facility] US Heart [facility] End: 11-01-2025 XR Thoracic spine AP and Lateral XR THORACIC LIMITED 2V AP/LAT Radiology Routine Fracture 1 Occurrences starting 10/02/2024 until 11/01/2025 [facility] Work Phone: Comment on above: 1 Occurrences starti ng 10/02/2024 until 11/01/2025 XR Thoracic spine AP and Lateral XR THORACIC LIMITED 2V AP/LAT Radiology Routine Closed fracture of eighth thoracic vertebra with routine healing, unspecified fracture morphology, subsequent encounter 10/02/2024 8:22 AM EDT [facility] Work Phone: XR Thoracic spine AP and Lateral and Swimmers XR THORACIC GENERAL 3V AP/LAT/SWIMMERS Radiology Routine 12/16/2024 11:00 AM EDT [facility] Work Phone: [facility] Payers Date Payer Category Payer Self-pay 2024 Medicare (Managed Care) [facility]UC[facility] [id number] 2024 Medicare [id number] 2020 Medicare MEDICARE MEDICAR E A AND B [id number] 2020-Present [phone] [place] [address] Medicare [id number] 2020 Unknown [id number] Medicare [id number] Private Health Insurance [id number] Unknown [id number] Unknown [id number]. 462 Unknown [id number] 2.16.840.1.796735.3.579.2. 462 Unknown [id number] 2.16.840.1.281967.3.579.2. 462 Unknown [id number] 2.16.840.1.618167.3.579.2. 462 Unknown [id number] 2.16.840.1.122320.3.579.2. 462 Unknown [id number] 2.16.840.1.644032.3.579.2. 462 Unknown [id number] 2.16.840.1.879836.3.579.2. 462 Unknown [id number] 2.16.840.1.596068.3.579.2. 462 Unknown [id number] 2.16.840.1.146520.3.579.2. 462 Unknown [id number] 2.16.840.1.900330.3.579.2. 462 Unknown [id number] 2.16.840.1.174562.3.579.2. 462 Unknown [id number] 2.16.840.1.884874.3.579.2. 462 Unknown [id number] 2.16.840.1.115913.3.579.2. 462 Unknown [id number] 2.16.840.1.821896.3.579.2. 462 Unknown [id number] 2.16.840.1.182331.3.579.2. 462 Unknown [id number] 2.16.840.1.834687.3.579.2. 462 Unknown [id number] 2.16840.1.769976.3.579.2. 462 Social History Date Type Detail Facility Start: 06-06-2017 End: 01-08-2025 Tobacco smoking status NHIS Never smoked tobacco [facility] Start: 06-06-2017 End: 12-09-2021 Tobacco use and exposure Smokeless tobacco non-user [facility] Start: 11-17-2021 End: 12-16-2024 Alcohol intake Current non-drinker of alcohol (finding) [facility] Start: 1955 Sex Assigned At Not on file [facility] Start: 12-10-2021 End: 02-01-2022 Exposure to SARS-CoV-2 (event) Not sure [facility] Start: 02-18-2015 Alcohol intake Not Asked [facility] Start: 08-16-2024 End: 08-19-2024 Gender identity Not on file [facility] Work Phone: Start: 06-23-2023 Tobacco smoking stat [facility] Unknown if ever smoked [facility] Start: 1955 Sex Assigned At Male [facility] Start: 07-15-2024 Sex Male (finding) [facility] Start: 08-16-2024 End: 08-19-2024 History of Social function [facility] [place] [facility] Work Phone: Has the tydy, or Bille[place] threatened to shut off services in your home in past 12Mo No [facility] Work Phone: (I/We) worried kemar er (my/our) food would run out before (I/we) got money to buy more. Never true [facility] Start: 03-11-2012 In the past 12 month s, has lack of transportation kept you from medical appointments or from getting medications? No [facility] Medical Equipment Procedure Code Equipment Code Equipment Origin al Text Equipment Identifier Dates Patch Ventralex St Sepra Sorbaflex 2.5in Medium [place] Polypropylene - [id number] Start: 06-19-2017 Lens Iol Acrysof Trc3 19.0 - [id number] Start: 02-01-2022 Plate Titanium X 1.8mm Bone 8 Hole Mini Sternotomy Sternal - [id number] Start: 08-30-2024 Screw Drill-Free Maxdrive 2.3mm Titanium 13mm Bone Self Retaining Lock - [id number] Start: 08-30-2024 Pen Needle, Diab etic (Saba Pen Needle) 32 gauge x 5/32" needle Start: 10-29-2024 Pen Needle, Diab etic (Saba Pen Needle) 32 gauge x 5/32" needle Start: 10-29-2024 End: 10-29-2024 Pen Needle, Diab etic (Saba Pen Needle) 32 gauge x 5/32" needle Start: 10-29-2024 Pen Needle, Diab etic (Saba Pen Needle) 32 gauge x 5/32" needle Start: 10-29-2024 End: 10-29-2024 Pen Needle, Diab etic (Saba Pen Needle) 32 gauge x 5/32" needle Start: 10-29-2024 Pen Needle, Diab etic (Saba Pen Needle) 32 gauge x 5/32" needle Start: 10-29-2024 End: 10-29-2024 Pen Needle, Diab etic (Saba Pen Needle) 32 gauge x 5/32" needle Start: 10-29-2024 Pen Needle, Diab etic (Saba Pen Needle) 32 gauge x 5/32" needle Start: 10-29-2024 End: 10-29-2024 Pen Needle, Diab etic (Saba Pen Needle) 32 gauge x 5/32" needle Start: 10-29-2024 Pen Needle, Diab etic (Saba Pen Needle) 32 gauge x 5/32" needle Start: 10-29-2024 End: 10-29-2024 Pen Needle, Diab etic (Saba Pen Needle) 32 gauge x 5/32" needle Start: 10-29-2024 Pen Needle, Diab etic (Saba Pen Needle) 32 gauge x 5/32" needle Start: 10-29-2024 End: 10-29-2024 Pen Needle, Diab etic (Saba Pen Needle) 32 gauge x 5/32" needle Start: 10-29-2024 Pen Needle, Diab etic (Saba Pen Needle) 32 gauge x 5/32" needle Start: 10-29-2024 End: 10-29-2024 Goals Date Patient Goal Desired Activity /State Personal health goal Functional Status Date Assessment Result Facility 09-05-2024 Are you deaf, or do you have serious difficulty hearing No 09/05/2024 5:57 PM Krystyna Mooney, RN [facility] 09-05-2024 Are you blind, or do you have serious difficulty seeing, even when wearing glasses No 09/05/2024 5:57 PM Krystyna Mooney, RN [facility] 09-05-2024 Do you have serious difficulty walking or climbing stairs Yes 09/05/2024 5:57 PM EDT Krystyna Sands RN Yes [facility] 09-05-2024 Do you have difficul ty dressing or bathing Yes 09/05/2024 5:57 PM EDT Krystyna Sands RN Yes [facility] 09-05-2024 Because of a physica l, mental, or emotional condition, do you have difficulty doing errands alone such as visiting a physician's office or shopping Yes 09/05/2024 5:57 PM EDT Krystyna Sands RN Yes [facility] Mental Status Date Assessment Result Facility 09-05-2024 Because of a physica l, mental, or emotional condition, do you have serious difficulty concentrating, remembering, or making decisions Yes 09/05/2024 5:57 PM EDT Krystyna Sands RN Yes [facility] Clinical Notes 06-06-2017 to 01-08-2025 Note Date & Type Note Facility 01-08-2025 Progress note [facility] 01-08-2025 Progress note Note Date/Time January 08, 2025 3:04pm [facility] [address] [address] OFFICE VISIT Date of Service: 01/08/25 MR#: [id number] Acct: [id number] Name: ARIS ATKINS Rep #: [id number] : 1955 Provider: AMADO Elliott Age/Sex: 69/M Location: [facility] Status: Signed Intake Vital Signs 12/06/24 14:52 01/03/25 14:59 Height 5 ft 10 in 5 ft 10 in Intake Visit Reasons: BOWEL ISSUES LOOSE STOOLS CONSTIPATION Chief Complaint: NAUSEA AND DIARRHEA Warehouse Operations Manager Required: No Accompanied by: Is patient in pain?: No Allergies No Known Allergies Allergy (Unverified 12/06/24 14:48) Medications ?Medication ?Instructions ?Recorded ?Confirmed ?Type Adren-all PO 1XD 06/23/23 01/06/25 His tory Held on 09/25/24. Instructions: per [facility] ascorbic acid (vitamin C) 1,000 mg 1 g PO DAILY 01/06/25 History capsule Held on 09/25/24. Instructions: per [facility] iodoral 12.5 mg PO 1XD 06/23/2312/10 History Held on 09/25/24. Instructions: per [facility] optiprostat PO 1XD 06/23/23 01/06/25 His tory Held on 09/25/24. Instructions: per [facility] cholecalciferol (vitamin D3) 125 125 mcg PO .three dileep es weekly 12/22/23 01/06/25 History mcg (5,000 unit) capsule Held on 09/25/24. Instructions: per [facility] thyroid (pork) 120 mg tablet (ELECTRICAL ENGINEERING DESIGNER 120 mg PO DAILY #90 t abs 06/13/24 01/08/25 Rx Thyroid) L.acidophil,salivari-Bifido cap PO 09/25/24 01/08/25 H istory bifidum-Strep thermoph 175 mg capsule acetaminophen 500 mg capsule 1,000 mg PO Q4H PRN 09/2501/08/25 History atorvastatin 40 mg tablet 40 mg PO QAM 09/25/24 History polyethylene glycol 3350 17 4 g PO QDAY PRN 09/25/24 1 History gram/dose oral powder (Miralax) finasteride 5 mg tablet 5 mg PO QAM #90 tabs 5 01/08/25 Rx metoprolol tartrate 25 mg tablet 12.5 mg (1/2 x 25 mg) PO BID #180 10/16/24 01/08/25 Rx tabs tamsulosin 0.4 mg capsule 0.4 mg PO QHS #90 caps 10/1601/08/25 Rx insulin glargine 100 unit/mL (3 40 unit (0.4 mL) subcu t QAM #15 mL 10/29/24 01/08/25 Rx mL) subcutaneous pen (Lantus Solostar U-100 Insulin) pen needle, diabetic 32 gauge x #100 ea 10/29/2401/06 Rx 5/32" (Saba Pen Needle) insulin lispro 100 unit/mL 1 sliding scale dose subcut TID 07/23/25 10/01/25 Rx subcutaneous pen (Humalog KwikPen #15 mL (U-100) Insulin) aspirin 81 mg tablet 81 mg PO QAM 12/06/24 History Have you fallen in the past year?: Yes PFS Medical History (Updated 01/08/25 @ 15:07 by AMADO Elliott) UTI (urinary tract infection) Palpitations SVT (supraventricular tachycardia) Chronic systolic CHF (congestive heart failure) Hypothyroidism BPH (benign prostatic hyperplasia) Syncope Essential (primary) hypertension Diarrhea CAD, multiple vessel Abnormal EKG Old myocardial infarct Dizziness History of gout Rectal fistula Diabetes type 2, uncontrolled Back fracture (~08/2024) Amputation of ring finger Hernia, umbilical Hernia, inguinal Gout Surgical History (Updated 01/06/25 @ 14:33 by Felisa Hardin RN) S/P CABG (coronary artery bypass graft) (08/30/24) History of hernia repair H/O thyroidectomy (Unknown) Family History (Updated 01/08/25 @ 14:48 by Brandy Tobias) Father Colon cancer Diabetes Hypertension Thyroid disorder Brother Crohn's disease Social History (Updated 01/08/25 @ 14:48 by Brandy Tobias) adopted: No household members: other details: elizabeth housing: house number of children: 1 current occupational status: retired pets and animals: Yes (dogs x 2 ) pets and animals: dog(s) history of recent travel: No Smoking Status: Never smoker second hand exposure: No alcohol intake: former Previous attempts at quittin details: once or twice a month caffeine: Yes ("minimal") what type of physical activity do you participate in: walking frequency: daily duration: 30-45 minutes/day seatbelt use: always do you feel safe at home: Yes HPI HPI Chief Complaint: NAUSEA AND DIARRHEA Details: ARIS ATKINS, is a 69 M who presents to the office today for establishment. In August 2024 patient had a heart attack and during his heart attack he fell and broke his back. He was sent to [facility] and underwent CABG. Patient did not require surgery for his back but was in an immobilizer for 3 months. During this time patient had severe constipation which required a nasogastric tube placement. Since then he has had issues with intermittent diarrhea, nausea, vomiting and constipation. He has not had any diarrhea over the past month and is mostly now constipated. He would take Imodium on occasionwhen he had diarrhea. He has a bowel movement typically every few days. In thepast he has also had constipation. He has tried MiraLAX and senna as needed. Last colonoscopy was about 4 years ago with 1 polyp and was recommended to repeat in 5 years. Patient endorses that he has a brother with Crohn's disease. ROS Const Constitutional: No fatigue, fever(s) or weight change ENT ENT: No difficulty swallowing Gastro GI: No abdominal pain, belching, bloating, change in bowel habits, change in stool character, coffee ground emesis, constipation, cramping, diarrhea, heartburn, difficulty swallowing, feeling full early, excessive flatus, incontinent of stools, Vomiting blood/hematemesis, Blood in stool, loose stools,Black,tarry stools, nausea/dyspepsia, pain with swallowing, vomiting or other Musc Musculoskeletal: No joint pain Skin Skin: No yellowing of the eye or itchy eyes Psych Psychiatric: No anxiety and No depression Endo Endocrine: No fatigue or weight change Aller/Imm Allergy/Immunologic: No itchy eyes Dell/Lymp Hematologic/Lymphatic: No easy bleeding or easy bruising Exam Const General: cooperative and comfortable Nutritional Appearance: average body habitus Orientation: alert HENMT Head: normal to inspection Eyes General: appearance normal, both eyes and all related structures Neck Neck: normal visual inspection Chest Chest palpation & inspection: normal inspection of the chest Resp Effort & Inspection: normal respiratory effort GI Inspection: normal to inspection Auscultation: normal bowel sounds Palpation: firm, no guarding and nontender Assessment and Plan Assessment and Plan (1) Diarrhea: Status: Acute Qualifiers: Diarrhea type: unspecified type Qualified Code(s): R19.7 - Diarrhea, unspecified Plan: Aris is a 69-year-old male patient with changes in his bowel habits after fracturing his back and having myocardial infarction in August 2024. Patient underwent CABG at [facility]. Since then he has struggled with constipation,nausea, vomiting and intermittent diarrhea. Prior to his surgery, he struggled with constipation chronically but not to this degree. He has tried MiraLAX and senna. He is no longer having diarrhea. He did have a stool test which was negative for enteric pathogens and C. difficile. Will repeat stool test to check for elevated calprotectin. Pending result we may consider colonoscopy. Irecommended a fiber supplement and samples of Linzess. He was agreeable to trying the Linzess but will discontinue if he has diarrhea as he does does not want this to prevent him from doing cardiac rehab. - Trial Linzess - Recommended fiber supplement - Calprotectin - Consider colonoscopy - Follow-up in 1 month (2) Constipation: Status: Acute Orders: Orders Calprotectin, Stool Today R19.7 - Diarrhea, unspecified Giardia Lamblia, Stool EIA Today R19.7 - Diarrhea, unspecified Ova and Parasites 8623 Today K58.9 - Irritable bowel syndrome, unspecified, R19.7 - Diarrhea, unspecified Coding Level of Care Code Off vis,new,level 4 Diagnoses Diarrhea, unspecified type R19.7 Diarrhea type: unspecified type Constipation K59.00 Clinical Quality Measures Falls Risk Screening/Assistive Devices Have you fallen in the past year?: Yes 01/08/25 2669 <Electronically signed by Ritika FISCHER> Date _ Ritika FISCHER Cosigner Signature: Date (if applicable) CC: ~ [facility] Work Phone: [phone]) 250-843509-16-2025 Instructions* Patient Education - Isaias Yoo RN - 12/24/2024 12:00 PM EDT Patient educated on 30 day event monitor, and verbalizes understanding. [facility]09-16-2025 Miscellaneous Notes* Patient Education - Isaias Yoo RN - 12/24/2024 12:00 PM EDT Patient educated on 30 day event monitor, and verbalizes understanding. [facility] NoteHNO ID: [id number] Author: ISAIAS YOO RN Service: ? Author Type: Registered Nurse Type: Patient Education Filed: 12/24/2024 12:43 Note Text: Patient educated on 30 day event monitor, and verbalizes understanding.[facility]09-10-2025 Telephone encounter Note* Telephone Encounter - Cathie Duffy - 12/18/2024 1:57 PM EDT Left message for patient regarding Cardiac Rehab. Encouraged patient to call and schedule orientation at [phone] option 1. [facility]09-10-2025 Miscellaneous Notes* Telephone Encounter - Cathie Duffy - 12/18/2024 1:57 PM EDT Left message for patient regarding Cardiac Rehab. Encouraged patient to call and schedule orientation at [phone] option 1. [facility] History of Present illness Narrative* Tani Mendoza MD, PhD - 12/16/2024 11:30 AM EDT NEUROSURGERY FOLLOW UP OFFICE NOTE Tani Mendoza MD, PhD Date of visit: December 16, 2024 Patient Name: Mr.John Kevin Atkins Date of : 1955 Current Age: [age] year old Sex: male MRN/E# [id number] Last Office Visit: 11/13/2024 Chief Complaint: Patient presents with: Established Patient SUBJECTIVE: HPI Mr.John Kevin Atkins presented to [facility] on 08[facility]16[facility]24 after a syncopal fall [...] candidate and therefore recommended bracing with a clamshell.Patient was recommended to wear clamshell brace when OOB or when HOB is >30 degrees. He was [facility] to [facility] on 09/[facility]/2024 with instructions to follow- up outpatient with neurosurgery in 2 weeks time. He presents to the office on 10/02/2024 for initial post hospitalization follow- up monitoring of T8/9 chalkstick fracture, 6.5 weeks since initial injury. Aris Atkins is a 69-year-old male presented for follow-up of a T8/9 chalk stick fracture. Aris experienced a syncopal fall on August 15, leading to a T8/9 chalk stick fracture. He subsequently underwent triple bypass surgery and spent time in rehabilitation. He was then admitted to a [facility] facility and had been home for 11 days. He reported no pain, numbness, tingling, or loss of bowel or bladder control. He does not endorse any additional falls. He mentioned some weakness, which he attributes to the recent cardiac surgery. He was currently using a walker and took Tylenol as needed. He had been wearing a brace at all timesas directed but was eager to remove it to begin cardiac rehabilitation, which was currently on holduntil the brace was removed. He presented for imaging review, evaluation and plan of care. Physical examination revealed no neurological deficits in the lower extremities. Recent imaging showed no evidence of vertebral displacement; fracture is stable. Educated patient on the serious nature of the fracture and the high surgical risk due to recent cardiac surgery. Advised continuation of brace use for an additional 6 weeks to ensure proper healing. Cardiac rehabilitation is on hold until brace removal; discussed potential for modified rehab activities. Will reassess the possibility of initiating cardiac rehab during the brace weaning process in 6 weeks. Patient follow-up appointment scheduled in 6 weeks for repeat imaging and evaluation prompting his visit today. Airs Atkins is a 69-year-old male presented on 11/13/2024 for follow-up of a spinal fracture. Aris sustained a spinal fracture on August 15. Due to existing cardiac issues, surgery was not performed, andhe had been managed with a brace since the injury. He reported feeling well and was eager to discontinue the brace, stating, "My back feels good." He reported good range of motion and does not endorse any pain, numbness, or tingling. He had been able to walk without difficulty and sleep on his sidein bed. He had been bending at the knees to avoid straining his back. Aris was eager to begin rehabilitation and resume activities such as bowling and golfing once fullyhealed. He inquires about starting cardiac rehabilitation. Symptoms: no symptoms reported It was recommended to begin brace wean over 1 month. Advised to avoid forward bending and to bend at the knees. Physical therapy to be considered after brace was fully discontinued. Follow-up in 1 month with repeat X-rays to confirm stability and healing prompting his visit today. Aris Atkins is a 69-year-old male presenting for follow-up after a spinal fracture. Aris reports nopain and has discontinued use of his brace for over two weeks. He expresses hope that this will be his last visit. He does not endorse any back pain, leg symptoms, numbness, or weakness. He inquires about resuming massages and client care specialist, which he has been receiving for several years for his neck and lower back (sciatica region). 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 Symptoms: no new symptoms Smoker: no Diabetic: yes, Hemoglobin A1C 7.8 on 08/15/24 Anticoagulants / Antiplatelets: ASA 81 mg Occupation: retired PREVIOUS CONSERVATIVE TREATMENTS: Tylenol PREVIOUS SURGERY: None PAIN EVALUATION No data found in the last 1 encounters. PAST MEDICAL HISTORY Diagnosis Date Adenomatous polyp BPH (benign prostatic hyperplasia) CAD (coronary artery disease) Delayed emergence from general anesthesia Gout PONV (postoperative nausea and vomiting) Postsurgical hypothyroidism pt does not have a PCP or medical administrative technician. He sees a naturopathic doctor. 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 Gaines on 08/30/24 PAST SURGICAL [...] Current Outpatient Medications Medication Sig Dispense Refill aspirin 81 mg chewable tablet Take 1 tablet by mouth once daily. 420 tablet 0 atorvastatin (LIPITOR) 40 mg tablet Take 1 tablet by mouth once daily. 90 tablet 0 insulin glargine 100 unit/mL (3 mL) Inject 40 Units subcutaneously every morning. metoprolol tartrate, short acting, (LOPRESSOR) 25 mg tablet Take 0.5 tablets by mouth every 12 hours. Hold if HR < 60 or SBP < [address] (PROTONIX) 40 mg tablet Take 1 tablet by mouth daily at 6 am. (Patient not taking: Reported on 12/11/2024) 30 tablet 1 finasteride (PROSCAR) 5 mg tablet Take 5 [...] 4 units 251-300 Give 6 units 301-350 Give8 units 351-400 Give 10 units Greater than 400 Give 10 units and Notify Provider Notify provider if2 consecutive blood glucose values in the previous 24 hours are greater than 250 mg/dL and there have been no changes to the insulin regimen in the previous 24 hours. methocarbamol (ROBAXIN) 500 mg tablet Take 1 tablet by mouth three times a day as needed (muscle spasms). (Patient not taking: Reported on 12/11/2024) No current facility-administered medications for this visit. Tried to go over patients medications and he states that nothing has changed. Unable to review. Kacey Matson MA REVIEW OF SYSTEMS Review of Systems Constitutional: Negative for chills, fatigue and fever. HENT: Negative for ear pain, hearing loss, postnasal drip, sore throat, tinnitus, trouble swallowing and voice change. Eyes: Negative for photophobia and visual disturbance. Respiratory: Negative for cough, choking and shortness of breath. Cardiovascular: Negative for chest pain, palpitations and leg swelling. Gastrointestinal: Negative for constipation, diarrhea, nausea and vomiting. Endocrine: Negative for cold intolerance and heat intolerance. Genitourinary: Negative for decreased urine volume, difficulty urinating, dysuria, frequency, hematuria and urgency. Musculoskeletal: Negative for arthralgias, back pain, gait problem, myalgias, neck pain and neck stiffness. Skin: Negative for rash and wound. Allergic/Immunologic: Negative for immunocompromised state. Neurological: Negative for dizziness, tremors, seizures, syncope, facial asymmetry, speech difficulty, weakness, light-headedness, numbness and headaches. Psychiatric/Behavioral: Negative for agitation, behavioral problems and confusion. The patient is not nervous/anxious. Musculoskeletal: (-) pain OBJECTIVE: BP 128/77 Pulse 76 Wt 208 lb 8.9 oz (94.6kg) SpO2 100% Physical Exam Appears comfortable with unipaired gait. Data Review IMAGING STUDIES: XR Thoracic Spine 12/16/2024: in process My Interpretation of Imaging: - X-ray of the spine: No evidence of nonunion or discontinuity. Vertebral fracture appears healed. Assessment: 1. Other closed fracture of eighth thoracic vertebra with routine healing, subsequent encounter (F03.525K) - Fracture healing well on X-ray; no evidence of nonunion or displacement. - Weaned from brace over 2 weeks ago; currently asymptomatic. - Discussed increased risk of future spinal fractures due to age-related spinal changes; advised risk modification and avoidance of high-impact activities. - Advised against chiropractic manipulation due to potential risk; patient to use discretion. - Educated on signs and symptoms (back pain, leg symptoms, numbness, weakness) that should prompt immediate medical attention. - No further routine follow-up required unless new symptoms develop. Plan: - Watch for any new back pain or leg symptoms such as numbness or weakness, and let us know right away if they occur. - Be aware that age-related fusion in your spine makes you more vulnerable to future fractures; consider this when choosing activities. - You may resume golfing and bowling as before. - Avoid high-impact activities such as skydiving, gymnastics, or skiing, which could put excessive stress on your spine. - Use caution with chiropractic adjustments; there is some risk to your neck and lower back. Proceed at your discretion. - Riding a systems mechanic carries some vibration risk--take care on uneven terrain and listen to your body. - In all activities, avoid any movements that could jar or impact your spine. Attestation: The following portions of the patient's history were reviewed, confirmed, and updated as necessary: allergies, current medications, past family history, past medical history, past socialhistory, past surgical history, problem list, HPI, and ROS obtained by others. Some elements may be copied from a previous office note and have been reviewed/updated where appropriate. All portions reflect current medical decision making from today. The clinical and radiographic findings as well as the risks, benefits and alternatives of treatmenthave been reviewed in detail with the patient. The patient was advised to call the office if symptoms worsen or new symptoms develop. The patient expressed understanding and is in agreement with plan. Tani Mendoza MD, PhD This note was partially generated using zlien voice recognition system, and there may be some incorrect words, spellings, and punctuation that were not noted in checking the note before saving. documented in this encounterL[facility] History of Present illness Narrative* Michael Marinelli MD - 12/11/2024 10:37 AM EDT Images from the original note were not included. Heart and Vascular [facility] SECTION OF CARDIAC PACING and ELECTROPHYSIOLOGY OUTPATIENT VISIT DATE December 11, 2024 OUTPATIENT VISIT TYPE ESTABLISHED PRIMARY CARE PHYSICIAN: AMADO Workman [address] [facility] [address] [place] [address] HISTORY OF PRESENT ILLNESS: 69-year-old male with [...] reports feeling well, denies chest pain, palpitation, ordizziness. He wore a back brace for 4 [...] pt does not have a PCP or medical administrative technician. He sees a naturopathic doctor. S/P CABG [...] 4 units 251-300 Give 6 units 301-350 Give8 units 351-400 Give 10 units Greater than 400 Give 10 units and Notify Provider Notify provider if2 consecutive blood glucose values in the previous [...] Cuff Size: Large Adult) Pulse (!) 55 Wt195 lb 9.6 oz (88.7 kg) SpO2 98% [...] INFORMATION: Michael Marinelli MD documented in this encounterLutheran Hospital09-03-2025 [facility]26[facility] Instructions* Patient Instructions* Shantell Byrd APRN.GRINDING MACHINE OPERATOR - 10/03/2024 1:25 PM EDT You have [...] Cardiac Rehab: when neurosurgery is clears you [phone] ([facility]) or [phone] ([facility]) [phone] ([facility], floor 1) You will have a EKG stress test before and after the cardiac rehab, [facility]. Restrictions: slowly increase weight bearing in a gradual fashion (5-10 lbs increment each month) over the next 2-3 months to allow further healing, then gradually resume your normal activities depending on how you feel. Follow-ups: It is crucial to establish future appointments with your main providers, they are you chief medical director ,and primary care doctor for medications refills/questions and future health management. Dr. Renteria Bolt Sawyer in [facility] You can follow up with cardiac surgery team on as needed basis. Please don't hesitate to contact us if you have any concerns/questions: [phone] Thanks for coming in to see me today. Shantell Byrd APRN.STACY documented in this encounterLutheran Hospital06-26-2025 History of Present illness Narrative* Shantell Byrd APRN.CNP - 10/03/2024 1:00 PM EDT HPI: Aris Atkins is a 69 year old male with a PMHx significant for DMII, hypothyroidism, and gout who presented to the ED 08/15/24 following a syncopal episode. Patient was reportedly pushing his mowerin the garage when he began to feel [...] with Dr. Gaines on 08/30. The patient wasultimately transferred to CVICU in stable condition on pressor support. He was extubated on time byearly parameters and had an uneventful night overall. POD 2 patient received 2 units PRBC for Hgb 5.8 with subsequent improvement. The patient's chest tubes were maintained through the morning of POD3 due to persistently high output, thus the [...] 4 units 251-300 Give 6 units 301-350 Give8 units 351-400 Give 10 units Greater than 400 Give 10 units and Notify Provider Notify provider if2 consecutive blood glucose values in the previous [...] pt does not have a PCP or medical administrative technician. He sees a naturopathic doctor. S/P CABG [...] 122/70 Pulse 76 Resp 16 Ht 5' 9" (1.75m) Wt 200 lb 3.2 oz (90.8kg) [...] weeks from surgery, no restrictions when cleared byneurosurgery -Discontinue thoracic vest -Cardiac rehabilitation: ordered placed previously, proceed as scheduled, once cleared by neurosurgery. -Bolt Sawyer follow up appointment: scheduled for 12/11 -PCP follow up appointment in 3-4 weeks -Cardiothoracic surgery follow up with us only as needed, otherwise discharged from our service. T8/T9 chalk stick fracture -Clamshell at all times when OOB or when HOB is > 30 degrees; Clarifying with NSGY about wearingclamshell vs removing for bathing -- sent two messages to CYNDI's today without response; use bath wipes until can clarify. -Pt care per neurosurgery recommendations -Neurosurgery f/u yesterday 10/02: fx stable, cont w/brace for additional 6 wks, repeat f/u in 6 wks, "Will reassess the possibility of initiating cardiac rehab during the brace weaning process in 6 weeks". Hypervolemia -Admission weight 94.8kg, current weight 96.6, [...] with 40mg of atorvastatin -Followed by PCP Bolt Sawyer follow up appointment: Scheduled for 12/11 PCP follow up appointment: in the next few weeks Cardiac rehabilitation: ON hold until cleared by neurosurgery to start, likely in 6 weeks, see neurosurgery note Bolt Sawyer follow up appointment: scheduled for 12/11 PCP [...] neurosurgery. he should follow up with his chief medical director and PCP as scheduled, and only needs julia seen here on a as needed basis. Thanks. Electronically signed by Shantell Byrd APRN.CNP on October 02, 2024, 8:25 PM documented in this encounterLutheran Hospital06-26-2025 [facility] History of Present illness Narrative* Tani Mendoza MD, PhD - 10/02/2024 9:00 AM EDT SPINE SURGERY CONSULT NOTE Tani Mendoza MD Date of visit: October 02, 2024 Patient Name: Mr.John Kevin Atkins Date of : 1955 Current Age: [age] year old Sex: male MRN/E# [id number] Last Office Visit: 09/30/2024 Chief Complaint: Patient presents with: Established Patient HPI Mr.John Kevin Atkins presented to [facility] on 08/16/24 after a syncopal fall [...] candidate and therefore recommended bracing with a clamshell.Patient was recommended to wear clamshell brace when OOB or when HOB is >30 degrees. [facility]24 with instructions to follow- up outpatient with neurosurgery in 2 weeks time. [...] [facility]. [facility] has been home for 11 days. He reports no pain, numbness, tingling, or loss of bowel or bladder control. He does not endorse any additional falls. He mentions some weakness, which he attributes to the recent cardiac surgery. Heis currently using a walker and takes Tylenol [...] pt does not have a PCP or medical administrative technician. He sees a naturopathic doctor. S/P CABG [...] EXTRACAP,INSERT LENS Right 02/01/[address] Chevy Deshpande THYROIDECTOMY TOTAL/COMPLETE 2012 Total- removed due to [...] (ACIDOPHILUS) 175 mg capsule TAKE 1 EACH BYMOUTH IN THE MORNING FOR 8 DAYS. sulfamethoxazole-trimethoprim [...] 4 units 251-300 Give 6 units 301-350 Give8 units 351-400 Give 10 units Greater than 400 Give 10 units and Notify Provider Notify provider if2 consecutive blood glucose values in the previous [...] past family history, past medical history, past socialhistory, past surgical history, problem list, HPI, and ROS obtained by others. Some elements may be copied from a previous office note and have been reviewed/updated where appropriate. All portions reflect current medical decision making from today. The clinical and radiographic findings as well as the risks, benefits and alternatives of treatmenthave been reviewed in detail with the patient. The patient was advised to call the office if symptoms worsen or new symptoms develop. The patient expressed understanding and is in agreement with plan. Tani Mendoza MD, PhD This note was partially generated using zlien voice recognition system, and there may be some incorrect words, spellings, and punctuation that were not noted in checking the note before saving. documented in this encounterLutheran Hospital06-25-2025 [facility] History of Present illness Narrative* Ligia Diaz, RT(R) - 10/02/2024 8:15 AM EDT Radiology Service Progress Note PATIENT NAME: Aris Atkins DATE OF SERVICE: October 02, 2024 TIME: 8:22 AM PATIENT IDENTITY VERIFICATION COMPLETED USING TWO (2) IDENTIFIERS: Name and Date of confirmedby patient verbally. FALL SCREENING: Has the patient had 2 falls in the last year or 1 fall with injury or currently using an Ambulatory Assistive Device (Walker, Cane, Wheelchair, Crutches, etc.)? No PATIENT GENDER DATA: Assigned male at PATIENT RELEVANT IMPLANT DATA REVIEWED: Not Applicable PATIENT PRESENTS WITH AN IMPLANTABLE OR ATTACHED GEODETIC ENGINEER: No RADIOLOGY DEPARTMENT: General X-ray: Exam(s) Completed: Spine X-Ray(s): Thoracic PERIPHERAL IV DATA: Not applicable SIGNED BY: RT Raegan(R) October 02, 2024 8:22 AM documented in this encounterLutheran Hospital06-25-2025 [facility] Telephone encounter Note* Telephone Encounter - Carley Tena - 09/30/2024 9:01 AM EDT Follow up appointment changed to 10/[address] Mendoza. Melina [facility]06-23-[facility] Miscellaneous Notes* Telephone Encounter - Carley Tena - 09/30/2024 9:01 AM EDT Follow up appointment changed to 10/[address] Mendoza. Melina documented in this encounterLutheran Hospital06-18-2025 Evaluation note* Diagnosis Onset Date Resolution Status Admit Date CAD, multiple vessel acute September 25, 2024 12:35pm Diabetes type 2, uncontrolled acute September 25, 2024 12:35pm Elevated blood pressure reading resolved September 25, 2024 12:35pm Urinary tract disorder resolved Ju ne 2024 12:35pm CAD, multiple vessel acute October 16, 2024 3:54pm Diabetes type 2, uncontrolled acute October 16, 2024 3:54pm Elevated blood pressure reading resolved October 16, 2024 3 :54pm Urinary tract disorder resolved Ju ly 2024 3:54pm CAD, multiple vessel acute Augu st 2024 12:38pm Diabetes type 2, uncontrolled acute November 15, 2024 12:38pm Urinary tract disorder resolved Au konrad 2024 12:38pm Diarrhea acute December 06, 2 025 2:22pm Nausea and vomiting resolved Augus t 2024 2:22pm [facility] Work Phone: 1(768) 454-179306-18-2025 Evaluation note* Diagnosis Onset Date Resolution Status Admit Date CAD, multiple vessel acute September 25, 2024 12:35pm Diabetes type 2, uncontrolled acute September 25, 2024 12:35pm Elevated blood pressure reading resolved September 25, 2024 12:35pm Urinary tract disorder resolved Ju ne 2024 12:35pm CAD, multiple vessel acute October 16, 2024 3:54pm Diabetes type 2, uncontrolled acute October 16, 2024 3:54pm Elevated blood pressure reading resolved October 16, 2024 3 :54pm Urinary tract disorder resolved Ju ly 2024 3:54pm CAD, multiple vessel acute Novu st 2024 12:38pm Diabetes type 2, uncontrolled acute November 15, 2024 12:38pm Urinary tract disorder resolved Au konrad 2024 12:38pm Diarrhea acute December 06, 2 025 2:22pm Nausea and vomiting resolved Augus t 2024 2:22pm Constipation acute January 08, 2025 2:30pm Diarrhea acute January 08, 2 025 2:30pm [facility] Work Phone: 1(112) 793-987306-16-2025 Telephone encounter Note* Telephone Encounter - Antonio Vora - 09/23/2024 10:10 AM EDT LMOM to schedule office visit with animal warden 3-4 week F/up - discuss about starting cardiac rehab [facility] Miscellaneous Notes* Telephone Encounter - Antonio Vora - 09/23/2024 10:10 AM EDT LMOM to schedule office visit with animal warden 3-4 week F/up - discuss about starting cardiac rehab documented in this encounterLutheran Hospital06-13-2025 Telephone encounter Note * Telephone Encounter - Carley Tena - 09/20/2024 3:15 PM EDT Returned patients call regarding follow up appointment. Contact information left for patients to return my call to confirm the follow up day/time will work for them. Carley Tena [facility]-13-2025 Miscellaneous Notes* Telephone Encounter - Carley Tena - 09/20/2024 3:15 PM EDT Returned patients call regarding follow up appointment. Contact information left for patients to return my call to confirm the follow up day/time will work for them. Carley Tena documented in this encounterLutheran Hospital06-09-2025 Instructions* Patient Instructions* Shantell Byrd APRN.CNP - 09/16/2024 2:43 PM [...] you see the neurosurgeon. Shantell Byrd APRN.CNP [phone] documented in this encounterLutheran Hospital06-09-2025 Telephone encounter Note * Telephone Encounter - Eugenie Whitney LPN - 09/16/2024 2:15 PM EDT Patient at appointment to see Shantell Byrd NP at 2:00 with in attendance. Eugenie Whitney LPN September 16, 2024 2:16 PM [facility] Miscellaneous Notes* Telephone Encounter - Eugenie Whitney LPN - 09/16/2024 2:15 PM EDT Patient at appointment to see Shantell Byrd NP at 2:00 with in attendance. Eugenie Whitney LPN September 16, 2024 2:16 PM * Telephone Encounter - Eugenie Whitney LPN - 09/16/2024 12:23 PM EDT Nurse Conde, [facility], , calling in leaving message on [employer] stating he needed a return call prior to patient coming in today at 1400. This Nurse returned call. Nurse Conde states that he needs to give report and hand-off due to patient returning back to [facility] after visit today. Nurse Conde states patient [...] 16, 2024 12:25 PM documented in this encounterLutheran Hospital06-09-2025 History of Present illness Narrative* Shantell Byrd APRN.STACY - 09/16/2024 2:00 PM EDT HPI: Aris Atkins is a 69 year old male with a PMHx significant for DMII, hypothyroidism, and gout who presented to the ED 08/15/24 following a syncopal episode. Patient was reportedly pushing his mowerin the garage when he began to feel [...] with Dr. Gaines on 08/30. The patient wasultimately transferred to CVICU in stable condition on pressor support. He was extubated on time byearly parameters and had an uneventful night overall. POD 2 patient received 2 units PRBC for Hgb 5.8 with subsequent improvement. The patient's chest tubes were maintained through the morning of POD3 due to persistently high output, thus the [...] male that returns to the office today post- discharge follow up. Presents to OV today with [...] 4 units 251-300 Give 6 units 301-350 Give8 units 351-400 Give 10 units Greater than 400 Give 10 units and Notify Provider Notify provider if2 consecutive blood glucose values in the previous [...] pt does not have a PCP or medical administrative technician. He sees a naturopathic doctor. 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 Gaines on 08/30/24 PAST SURGICAL HISTORY Procedure Laterality Date CABG, ARTERY-VEIN, FIVE 08/30/2024 CABG x 3 (sahford-lad, svg-diag, svg- pda;evh) with Dr. Gaines on [...] Examination: Vitals:BP 110/60 Pulse 73 Ht 5' 9"[patient reports[ (1.75m) Wt 213 lb (96.6kg) SpO2 [...] > 30 degrees; Clarifying with NSGY about wearingclamshell vs removing for bathing -- sent two [...] are after cardiac surgery. Holding off on cardiacrehab until have update Instructed both patient and to call or mychart message with any questions or concerns. Bolt Sawyer follow up appointment: Scheduled for 12/11 PCP [...] CXR order, we would also like to discussabout starting cardiac rehab at the next visit. Electronically signed by Shantell Byrd APRN.CNP on September 16, 2024, 5:07 PM documented in this encounterLutheran Hospital06-09-2025 [facility] Telephone encounter Note* Telephone Encounter - Eugenie Whitney LPN - 09/16/2024 12:23 PM EDT Nurse Conde, [facility], , calling in leaving message on Nurse[employer]Line stating he needed a return call prior to patient coming in today at 1400. This Nurse returned call. Nurse Conde states that he needs to give report and hand-off due to patient returning back to [facility] after visit today. Nurse Conde states patient [...] Whitney LPN September 16, 2024 12:25 PM [facility] Telephone encounter Note* Telephone Encounter - Cathie Duffy - 09/09/2024 10:19 AM EDT [facility] when appropriate. [facility] scheduling pool. [facility] Miscellaneous Notes* Telephone Encounter - Cathie Duffy - 09/09/2024 10:19 AM EDT Pt [facility] when appropriate. [facility] scheduling pool. * Telephone Encounter - Cathie Duffy - 09/09/2024 9:33 AM EDT Left message for patient regarding Cardiac Rehab. Trying to determine which location is closest forpatient Encouraged patient to call and schedule orientation at [phone] option 1. documented in this encounterLutheran Hospital06-02-2025 Telephone encounter Note * Telephone Encounter - Cathie Duffy - 09/09/2024 9:33 AM EDT Left message for patient regarding Cardiac Rehab. Trying to determine which location is closest forpatient Encouraged patient to call and schedule orientation at [phone] option 1. [facility] Telephone encounter Note* Telephone Encounter - Shantell Nichole LPN - 08/26/2024 12:24 PM EDT Spoke with patient about test results. Patient about test results. Patient verbalizes understanding. Shantell Nichole LPN [facility]-19[facility] Miscellaneous Notes* Telephone Encounter - Shantell Nichole LPN - 08/26/2024 12:24 PM EDT Spoke with patient about test results. Patient about test results. Patient verbalizes understanding. Shantell Nichole LPN * Telephone Encounter - Shantell Nichole LPN - 08/26/2024 12:22 PM EDT ----- Message from Ki Ch MD sent at 08/26/2024 12:20 PM EDT ----- Can you please let Mr. Atkins know that his CBC revealed normal blood counts. Thanks, Ki Ch MD documented in this encounterLutheran Hospital05-19-2025 Telephone encounter Note * Telephone Encounter - Shantell Nichole LPN - 08/26/2024 12:22 PM EDT ----- Message from Ki Ch MD sent at 08/26/2024 12:20 PM EDT ----- Can you please let Mr. Atkins know that his CBC revealed normal blood counts. Thanks, Ki Ch MD [facility]2025 Note HNO ID: [id number] Author: NOTE, INTERFACE, ? Service: ? Author Type: ? Type: Progress Notes Filed: 08/25/2024 02:54 Note Text: Epic Scheduled Downtime: 08/25/2024 1:00:00 AM to 08/25/2024 2:37:00 [facility]05-17-2025 [facility]-17[facility]2025 Note [facility]05-17-2025 NoteHNO ID: [id number] Author: NOTE, INTERFACE, ? Service: ? Author Type: ? Type: Progress Notes Filed: 08/24/2024 03:47 Note Text: Epic Scheduled Downtime: 08/24/2024 1:00:00 AM to 08/24/2024 3:39:00 [facility]05-16-2025 [facility]2025 [facility]05-15-2025 [facility] 08-22-2024 [facility]2025 [facility]05-13-2025 [facility] 08-19-2024 [facility]-12-2025 Telephone encounter Note* Telephone Encounter - Dee Mena - 08/19/2024 7:48 AM EDT Follow up(s) scheduled. Patient to be notified upon discharge. Dee Mena [facility]05-12-2025 Miscellaneous Notes* Telephone Encounter - Dee Mena - 08/19/2024 7:48 AM EDT Follow up(s) scheduled. Patient to be notified upon discharge. 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 Michael Marinelli MD [facility] Work Phone: 1(114) 885-684005-09-2025 [facility]-09[facility] 08-15-2024 [facility] [facility]* Diagnosis Onset Date Resolution Status [...] tract disorder acute Au konrad 2024 12:38pm [facility] Work Phone: 1(878) 131-551105-02-2025 Evaluation note* Diagnosis Onset Date Resolution Status [...] 2024 12:38pm Diarrhea acute December 06 2:22pm [place] [facility] Work Phone: 1(757) 499-811204-02-2025 Evaluation note* Diagnosis Onset Date Resolution Status [...] myocardial infarct acute Ma y 2024 7:48am [place] [employer] Work Phone: 1(330) 496-150404-02-2025 Evaluation note* Diagnosis Onset Date Resolution Status [...] 2024 7:48am Old myocardial infarct acute Ma 2024 7:48am CAD, multiple vessel acute September 25, 2024 12:35pm Diabetes type 2, uncontrolled acute September 25, 2024 12:35pm Elevated blood pressure reading acut e September 25, 2024 12:35pm Urinary tract disorder acute Ju ne 2024 12:35pm [place] [facility] Work Phone: 1(469) 695-343101-03-2025 Evaluation note* Diagnosis Onset Date Resolution Status [...] 10:17am History of gout acute July 10:17am [facility] Work Phone: 1(248) 271-217408-21-2023 Telephone encounter Note* Telephone Encounter - Endy Corneliusler - 11/28/2022 7:35 AM EDT Preferred contact number: [phone] Reason for Visit: Pt cx appt for 8. due to not feeling well. Please call to r/s Message in ecw Urgency of Appointment: n/a Medications in need of refill: n/a [phone] Miscellaneous Notes* Telephone Encounter - Endy Peterson - 11/28/2022 7:35 AM EDT Preferred contact number: [phone] Reason for Visit: Pt cx appt for 8. due to not feeling well. Please call to r/s Message in ecw Urgency of Appointment: n/a Medications in need of refill: n/a documented in this encounterSThe University of Toledo Medical [phone] Miscellaneous Notes* Telephone Encounter - Chanelle Arzate - 01/27/2022 12:40 PM EDT INTRAOCULAR LENS ORDER ATTN: [facility] PATIENTS NAME: Aris Atkins SURGERY DATE: 02/01/2022 EYE: OD SURGEON: Emilia Deshpande MD LENS: TORIC ECONOMICS TEACHER: Khang MODEL: [id number] POWER: + 19.00 ADDITIONAL NOTES: TORIC / ORA documented [facility]10-[facility]2022 Miscellaneous Notes* Telephone Encounter - Ryder Raines - 01/26/2022 11:10 AM EDT Attempted to contact patient to inform to arrive at [address] [address] at 10:55 am for 02/01/22 surgery with Emilia Deshpande MD, to refrain from eating or drinking for 8 hours prior to arrival for surgery, except for up to 12 oz of clear liquids up until 08:55 am, and to begin the eyedrops in the right eye on 01/30/22. Left message on machine to call with any questions or concerns. documented in this [facility]10-18-2022 Miscellaneous Notes* Telephone Encounter - Brook Shafer - 01/25/2022 3:09 PM EDT Received call from patient. Wants a call back when we receive his preop notes from his primary carephysician. documented in this [facility]10-07-2022 Miscellaneous Notes* Telephone Encounter - Chanelle Arzate - 01/14/2022 2:43 PM EDT Left voicemail to remind patient of appointment in our [place] office at [address] [place] [address], [address],on 01/17/22 at 8:00 a.m. Advised that contact lens wearers must be out of contacts for at least twoweeks before this appointment and to call back at [phone] to let us know when scheduled with primary care for the pre op physical exam. documented in this [facility]09-12-2022 Instructions* Patient Instructions* Emilia Marroquin MD - [...] Tuesdays and . You will need a ambulance driver the day of surgery. Please look at your personal schedule and your drivers schedule and select a few days approximately 3 to 4 weeks out that would work for you. Dr Linette Deshpande has sent in prescriptions to your pharmacy for eye drops that you will use. Do not pick them up until you hear from the incident coordinator as to the date of your [...] your doctor as needed. documented [facility]09-12-2022 History of Present illness Narrative* Emilia Marroquin [...] CC 20/25 Glare Testing: Visual Function: Aris Atkins states that the [...] patient was offered a [facility] The surgeon/proceduralist and patient have discussed [...] components. Emilia Deshpande MD documented in this encounterLuther[facility]09-01-2022 Miscellaneous Notes* Addendum Note - Latha Albarran MD - 12/09/2021 9:55 AM EDTAddended by: LATHA ALBARRAN on: 12/09/2021 09:55 AM Modules accepted: Orders documented in this encounterLuther[facility] Hospital09-01-2022 History of Present illness Narrative* Latha Albarran [...] 09, 2021 8:49 AM documented in this encounterL[facility]09-01-2022 Instructions* Patient Instructions* Latha Albarran MD - [...] your doctor as needed documented in this encounterLuther[facility]08-10-2022 History of Present illness Narrative* Sissy Peterson, OD - 11/17/2021 2:29 PM EDT Assessment/Plan: [...] RTC cataract evaluation OD documented in this encounterLutheran Hospital08-10-2022 Instructions* Patient Instructions* Sissy Peterson OD - 11/17/2021 2:29 PM EDT Images from the original note were not included. documented in this encounterLutheran Hospital02-27-2018 History of Past illness Narrative* Problem Noted Date Resolved Date Umbilical hernia without obstruction or gangrene 06/06/2017 06/19/2017 Overview: Added automatically from request for surgery [id number] documented as of this encounter (statuses as of 11/17/2021) [facility] of [facility] illness Narrative* Problem Noted Date Resolved Date Umbilical hernia without obstruction or gangrene 06/06/2017 06/19/2017 Overview: Added automatically from request for surgery [id number] documented as of this encounter (statuses as of 12/09/2021) [facility] of [facility] illness Narrative* Problem Noted Date Resolved Date Umbilical hernia without obstruction or gangrene 06/06/2017 06/19/2017 Overview: Added automatically from request for surgery [id number] documented as of this encounter (statuses as of 12/20/2021) [facility] Narrative* Problem Noted Date Resolved Date Umbilical hernia without obstruction or gangrene 06/06/2017 06/19/2017 Overview: Added automatically from request for surgery [id number] documented as of this encounter (statuses as of 01/14/2022) [place] [address]-27-2018 History of Past illness Narrative* Problem Noted Date Resolved Date Umbilical hernia without obstruction or gangrene 06/06/2017 06/19/2017 Overview: Added automatically from request for surgery [id number] documented as of this encounter (statuses as of 01/17/2022) [place] [address]-27-2018 History of Past illness Narrative* Problem Noted Date Resolved Date Umbilical hernia without obstruction or gangrene 06/06/2017 06/19/2017 Overview: Added automatically from request for surgery [id number] documented as of this encounter (statuses as of 01/26/2022) [place] [address]-27-2018 History of Past illness Narrative* Problem Noted Date Resolved Date Umbilical hernia without obstruction or gangrene 06/06/2017 06/19/2017 Overview: Added automatically from request for surgery [id number] documented as of this encounter (statuses as of 01/27/2022) [facility] Narrative* Problem Noted Date Resolved Date Umbilical hernia without obstruction or gangrene 06/06/2017 06/19/2017 Overview: Added automatically from request for surgery [id number] documented as of this encounter (statuses as of 02/17/2022) [facility]* Diagnosis Posterior subcapsular polar age-related cataract of right eye- Primary Posterior subcapsular polar senile cataract Cataract, nuclear sclerotic, both eyes Senile nuclear sclerosis Vitreous syneresis, bilateral documented [facility] this encounter [facility]* Diagnosis Combined form of age-related cataract, both eyes- Primary Myopia of both eyes Myopia Regular astigmatism of both eyes Regular astigmatism [facility] Diagnosis Posterior subcapsular polar age-related cataract of right eye- Primary Posterior subcapsular polar senile cataract Nuclear senile cataract of both eyes Prediabetes Other abnormal glucose Refractive error Unspecified disorder of refraction and accommodation Regular astigmatism of both eyes Regular astigmatism Posterior subcapsular polar age-related cataract, right eye [facility] Diagnosis 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 cataract of both eyes- Primary Cortical senile cataract Regular astigmatism of right eye Regular astigmatism Posterior subcapsular polar age-related cataract, right eye [facility]* Diagnosis Onset Date Resolution Status Diabetes type 2, uncontrolled acute History of gout acute Brittanie-rectal abscess acute [facility] Work Phone: Evaluation note* Diagnosis 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 (HCC)- Primary 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 (HCC) documented [facility] this encounter [facility]* Diagnosis 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 (HCC)- Primary S/P CABG (coronary artery bypass graft) Postsurgical aortocoronary bypass status Closed fracture of eighth thoracic vertebra with routine healing, unspecified fracture morphology, subsequent encounter Closed fracture of ninth thoracic vertebra with routine healing, unspecified fracture morphology, subsequent encounter Hypervolemia, unspecified hypervolemia type [facility] Diagnosis Fracture- Primary Closed fracture of unspecified bone Encounter for care involving use of rehabilitation procedure [facility] Diagnosis Closed fracture of eighth thoracic vertebra with routine healing, unspecified fracture morphology, subsequent encounter [facility] Diagnosis 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 (HCC)- Primary S/P CABG (coronary artery bypass graft) Postsurgical aortocoronary bypass status [facility] Diagnosis Disorder of urinary system- Primary Unspecified disorder of urethra and urinary tract documented [facility] encounter [facility]* Diagnosis Chronic systolic congestive heart failure (HCC)- Primary Chronic systolic heart failure S/P CABG (coronary artery bypass graft) Postsurgical aortocoronary bypass status SVT (supraventricular tachycardia) (HCC) Other specified cardiac dysrhythmias documented [facility] encounter [facility]* Diagnosis Other closed fracture of oz thoracic vertebra with routine healing, subsequent encounter- Primary documented in this encounter [facility] Discharge instructionsAmbulatory Orders* Urology Location: None [facility] Work Phone: Reason for referral (narrative)No reason for referral information availableWACMC Healthcare System Work Phone: Reason for visit Narrative* Auth/Cert - New Request Specialty Diagnoses / Procedures Referred By Contac t Referred To Contact [facility] [address] [place] [address] Referral ID Status Reason Start Date Expiration Date V isits Requested Visits Authorized New Request 09/06/2024 11/05/2024 [facility] N[facility]* Diagnostic Procedure Only (Routine) - Closed Specialty Diagnoses / Procedures Referred By Contac t Referred To Contact XR IMAGING Diagnoses Closed fracture of eighth thoracic vertebra with routine healing, unspecified fracture morphology, subsequent encounter Procedures XR THORACIC LIMITED 2V AP/LAT RADEX SPINE THORACIC 2 VIEWS Mahendra Dent PA-C [address] [place] [address] Phone: tel: fax: [place] [id number] Referral ID Status Reason Start Date Expiration Date V isits Requested Visits Authorized [id number] Closed Auto-Generate d Referral 08/23/2024 09/22/2025 1 1 [facility] N[facility]* Diagnostic Procedure Only (Routine) - Closed Specialty Diagnoses / Procedures Referred By Contac t Referred To Contact XR IMAGING Diagnoses Fracture Procedures XR THORACIC GENERAL 3V AP/LAT/SWIMMERS RADEX SPINE THORACIC 3 VIEWS Tani Mendoza MD, PhD [address] [facility] [place] [address] Phone: tel: fax: [place] [address] Referral ID Status Reason Start Date Expiration Date V isits Requested Visits Authorized [id number] Closed Auto-Generate d Referral 11/13/2024 12/13/2025 1 1 [facility] Summary Purpose Family History No Family History Records Found Relationship Condition Age at Onset Recorded Date/T marlin father Malignant neoplasm of colon Unknown Diabetes mellitus Unknown Hypertension Unknown Disorder of thyroid Unknown Relationship Condition Age at Onset Recorded Date/T marlin father Malignant neoplasm of colon Unknown Diabetes mellitus Unknown Hypertension Unknown Disorder of thyroid Unknown brother Crohn's disease Unknown Advance Directives No Advanced Directives Records Found Date Activated Date Inactivated Comments 08/15/2024 9:47 PM 09/05/2024 10:04 PM Question Answer Comments Full Code Order Discussed With: Patient Date Activated Date Inactivated Comments 08/15/2024 9:47 PM Date Activated Date Inactivated Comments 08/15/2024 9:47 PM 09/05/2024 10:04 PM Question Answer Comments Full Code Order Discussed With: Patient Advance Directive Response Recorded Date/ Time Advance Directives on File No 2024 2:09pm Living Will No January 03, 2025 2:09pm Do you have a Healthcare Power of Envelope Stuffer? No January 03, 2025 2:09pm Medications Administered Section Active Administered Medications - up to 3 most recent administrations Medication Order MAR Action Action Date Dose Rate Site fluorescein-benoxinate 0.25-0.4 % 1 Drop (FLURESS) 1 Drop, BOTH EYES, DIRECTED, Starting on Mon11/17/21 at 1346, Until Magalis 11/18/21 at 0145, Administer for applanation tonometry. In the event of a Fluress shortage, administer [place]-Fluor 1 drop into both eyes as directed for applanation tonometry, [facility]IC MED ORDERS Given 11/17/2021 2:01 PM EDT 1 Drop PHENYLephrine 2.5 % 1 Drop (AK-DILATE, MARIA DE JESUS-SYNEPHRINE) 1 Drop, BOTH EYES, DIRECTED, Starting on Mon11/17/21 at 1346, Until [place] 11/18/21 at 0145, Administer for dilation PROTECT FROM [...] 1 Drop, BOTH EYES, DIRECTED, Starting on Mon12/09/21 at 0830, Until Mon12/09/21 at 2028, Administer for applanation tonometry. In the event of a Fluress shortage, administer [place]-Fluor 1 drop into both eyes as directed for applanation tonometry Given 12/09/2021 8:30 AM EDT 1 Drop PHENYLephrine 2.5 % 1 Drop (AK-DILATE, MARIA DE JESUS-SYNEPHRINE) 1 Drop, BOTH EYES, DIRECTED, Starting on [place] 12/09/21 at 0830, Until Mon12/09/21 at 2028, Administer for dilation PROTECT FROM LIGHT Given 12/09/2021 8:30 AM EDT 1 Drop tropicamide 1 % 1 Drop (MYDRIACYL) 1 Drop, BOTH EYES, DIRECTED, Starting on Mon12/09/21 at 0830, Until Mon12/09/21 at 2028, Administer for dilation Given 12/09/2021 8:30 AM EDT 1 Drop Active Administered Medications - up to 3 most recent administrations Medication Order MAR Action Action Date Dose Rate Site fluorescein-benoxinate 0.25-0.4 % 1 Drop (FLURESS) 1 Drop, BOTH EYES, DIRECTED, Starting on Mon12/20/21 at 0800, Until Mon12/20/21 at 1958, Administer for applanation tonometry. In the event of a Fluress shortage, administer 1 drop of [place]-Fluor into both eyes as directed for applanation tonometry., OPHT CLINIC MED ORDERS Given 12/20/2021 8:00 AM EDT 1 Drop PHENYLephrine 2.5 % 1 Drop (AK-DILATE, MARIA DE JESUS-SYNEPHRINE) 1 Drop, BOTH EYES, DIRECTED, Starting on Mon12/20/21 at 0800, Until Mon12/20/21 at 1958, Administer for dilation PROTECT FROM LIGHT, OPHT CLINIC MED ORDERS Given 12/20/2021 8:00 AM EDT 1 Drop tropicamide 1 % 1 Drop (MYDRIACYL) 1 Drop, BOTH EYES, DIRECTED, Starting on Mon12/20/21 at 0800, Until Mon12/20/21 at 1959, Administer for dilation, OPHT CLINIC MED ORDERS Given 12/20/2021 8:00 AM EDT 1 Drop Chief Complaint and Reason for Visit Chief Complaint 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 Reason for Visit Diabetes type 2, unc ontrolled History of gout Brittanie-rectal abscess Chief Complaint 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 Amb Documentation BRITTANIE-RECTAL [...] August 09, 2024 7:48am FOLLOW UP FROM [facility] September 25, 2024 12:35pm Reason for Visit Admit Date Diabetes type 2, uncontrolled July 10, 2024 10:17am Elevated blood pressure reading July 10:17am Encounter for screening for malignant ne oplasm of prostate July 10, 2024 10:17am History of gout July 10, 2024 10:1 7am Diabetes type 2, uncontrolled August 09, 7:48am Dizziness August 09, 2024 7:48am Old myocardial infarct August 09, 2024 7:4 8am Chief Complaint Admit Date 3 M FU July 10, 2024 10:1 7am fu on symptoms August 09, 2024 7:48am FOLLOW UP FROM [facility] September 25, 2024 12:35pm 1 M FU October 16, 2024 3:54p m Reason for Visit Admit Date Diabetes type 2, uncontrolled July 10, 2024 10:17am Elevated blood pressure reading July 10:17am Encounter for screening for malignant ne oplasm of prostate July 10, 2024 10:17am History of gout July 10, 2024 10:1 7am Diabetes type 2, uncontrolled May 2nd, 2 025 7:48am Dizziness August 09, 2024 7:48am Old myocardial infarct August 09, 2024 7:4 8am CAD, multiple vessel September 25, 2024 12: 35pm Diabetes type 2, uncontrolled September 25, 2024 12:35pm Elevated blood pressure reading September 12:35pm Urinary tract disorder September 25, 2024 1 2:35pm Chief Complaint Admit Date fu on symptoms August 09, 2024 7:48am FOLLOW UP FROM [facility] September 25, 2024 12:35pm 1 M FU [...] August 09, 2024 7:48am FOLLOW UP FROM [facility] September 25, 2024 12:35pm 1 M FU [...] 12:38pm Diarrhea December 06, 2024 2: 22pm Chief Complaint Admit Date FOLLOW UP FROM [facility] September 25, 2024 12:35pm 1 M FU October 16, 2024 3:54p m 1 M FU November 15, 2024 12: 38pm Nausea and diarrhea December 06, 2024 2: 22pm INT LABS December 11, 2024 12:02pm INT ORDER December 14, 2024 7:03am CABG January 03, 2025 1:56pm CABG January 06, 2025 9:07am Reason for Visit Admit Date CAD, multiple vessel September 25, 2024 12: [...] 12:38pm Diarrhea December 06, 2024 2: 22pm Nausea and vomiting December 06, 2024 2: 22pm Chief Complaint Admit Date FOLLOW UP FROM [facility] September 25, 2024 12:35pm 1 M FU October 16, 2024 3:54p m 1 M FU November 15, 2024 12: 38pm Nausea and diarrhea December 06, 2024 2: 22pm INT LABS December 11, 2024 12:02pm INT ORDER December 14, 2024 7:03am CABG January 03, 2025 1:56pm CABG January 06, 2025 9:07am CABG October 1st, 2025 9: 01am Chief Complaint Admit Date FOLLOW UP FROM [facility] September 25, 2024 12:35pm 1 M FU October 16, 2024 3:54p m 1 M FU November 15, 2024 12: 38pm Nausea and diarrhea December 06, 2024 2: 22pm INT LABS December 11, 2024 12:02pm INT ORDER December 14, 2024 7:03am CABG January 03, 2025 1:56pm CABG January 06, 2025 9:07am CABG January 08, 2025 9: 01am BOWEL ISSUES LOOSE STOOLS CONSTIPATION O ctober 2024 2:30pm Reason for Visit Admit Date CAD, multiple vessel September 25, 2024 12: [...] 12:38pm Diarrhea December 06, 2024 2: 22pm Nausea and vomiting December 06, 2024 2: 22pm Constipation January 08, 2025 2: 30pm Diarrhea January 08, 2025 2: 30pm Additional Source Comments (unrecognized sect ion and content) No Status Records FoundNo Status Records FoundNo Status Records FoundNo Status Records FoundNo Status Records FoundNo Status Records FoundNo Status Records Found INFORMATION SOURCE (unrecogn ized section and content) DATE CREATED AUTHOR 09/29/2017 [facility] DATE CREATED AUTHOR AUTHOR'S ORGANIZ ATION 01/29/2019 [employer] DATE CREATED AUTHOR AUTHOR'S ORGANIZ ATION 11/28/2022 [facility] DATE CREATED AUTHOR AUTHOR'S ORGANIZ ATION 09/23/2024 [facility] DATE CREATED AUTHOR AUTHOR'S ORGANIZ ATION 09/23/2024 [facility] DATE CREATED AUTHOR AUTHOR'S ORGANIZ ATION 01/27/2025 [facility] DATE CREATED AUTHOR AUTHOR'S DEVAN GEIGER 01/30/2025 [facility] Source Comments (unrecognize d section and content) In the event this informatio n is protected by the Federal Confidentiality of Alcohol and Drug Abuse Patient Records regulations: The Federal rules restrict any use of the information to criminally investigate or prosecute any alcohol or drug abuse patient.[facility] Hospital[facility] the event this information is protected by the Federal Confidentiality of Alcohol and Drug Abuse Patient Records regulations: The Federal rules restrict any use of the information to criminally investigate or prosecute any alcohol or drug abuse patient.[facility] HospitalIn the event this information is protected by the Federal Confidentiality of Alcohol and Drug Abuse Patient Records regulations: The Federal rules restrict any use of the information to criminally investigate or prosecute any alcohol or drug abuse patient.[facility] HospitalIn the event this information is protected by the Federal Confidentiality of Alcohol and Drug Abuse Patient Records regulations: The Federal rules restrict any use of the information to criminally investigate or prosecute any alcohol or drug abuse patient.[facility] HospitalIn the event this information is protected by the Federal Confidentiality of Alcohol and Drug Abuse Patient Records regulations: The Federal rules restrict any use of the information to criminally investigate or prosecute any alcohol or drug abuse patient.[facility] HospitalIn the event this information is protected by the Federal Confidentiality of Alcohol and Drug Abuse Patient Records regulations: The Federal rules restrict any use of the information to criminally investigate or prosecute any alcohol or drug abuse patient.[facility] HospitalIn the event this information is protected by the Federal Confidentiality of Alcohol and Drug Abuse Patient Records regulations: The Federal rules restrict any use of the information to criminally investigate or prosecute any alcohol or drug abuse patient.[facility] HospitalIn the event this information is protected by the Federal Confidentiality of Alcohol and Drug Abuse Patient Records regulations: The Federal rules restrict any use of the information to criminally investigate or prosecute any alcohol or drug abuse patient.[facility] HospitalIn the event this information is protected by the Federal Confidentiality of Alcohol and Drug Abuse Patient Records regulations: The Federal rules restrict any use of the information to criminally investigate or prosecute any alcohol or drug abuse patient.[facility] HospitalIn the event this information is protected by the Federal Confidentiality of Alcohol and Drug Abuse Patient Records regulations: The Federal rules restrict any use of the information to criminally investigate or prosecute any alcohol or drug abuse patient.[facility] HospitalIn the event this information is protected by the Federal Confidentiality of Alcohol and Drug Abuse Patient Records regulations: The Federal rules restrict any use of the information to criminally investigate or prosecute any alcohol or drug abuse patient.[facility] HospitalIn the event this information is protected by the Federal Confidentiality of Alcohol and Drug Abuse Patient Records regulations: The Federal rules restrict any use of the information to criminally investigate or prosecute any alcohol or drug abuse patient.[facility] HospitalIn the event this information is protected by the Federal Confidentiality of Alcohol and Drug Abuse Patient Records regulations: The Federal rules restrict any use of the information to criminally investigate or prosecute any alcohol or drug abuse patient.[facility] HospitalIn the event this information is protected by the Federal Confidentiality of Alcohol and Drug Abuse Patient Records regulations: The Federal rules restrict any use of the information to criminally investigate or prosecute any alcohol or drug abuse patient.[facility] HospitalIn the event this information is protected by the Federal Confidentiality of Alcohol and Drug Abuse Patient Records regulations: The Federal rules restrict any use of the information to criminally investigate or prosecute any alcohol or drug abuse patient.[facility] HospitalIn the event this information is protected by the Federal Confidentiality of Alcohol and Drug Abuse Patient Records regulations: The Federal rules restrict any use of the information to criminally investigate or prosecute any alcohol or drug abuse patient.[facility] HospitalIn the event this information is protected by the Federal Confidentiality of Alcohol and Drug Abuse Patient Records regulations: The Federal rules restrict any use of the information to criminally investigate or prosecute any alcohol or drug abuse patient.[facility] HospitalIn the event this information is protected by the Federal Confidentiality of Alcohol and Drug Abuse Patient Records regulations: The Federal rules restrict any use of the information to criminally investigate or prosecute any alcohol or drug abuse patient.[facility] HospitalIn the event this information is protected by the Federal Confidentiality of Alcohol and Drug Abuse Patient Records regulations: The Federal rules restrict any use of the information to criminally investigate or prosecute any alcohol or drug abuse patient.[facility] HospitalIn the event this information is protected by the Federal Confidentiality of Alcohol and Drug Abuse Patient Records regulations: The Federal rules restrict any use of the information to criminally investigate or prosecute any alcohol or drug abuse patient.[facility] HospitalIn the event this information is protected by the Federal Confidentiality of Alcohol and Drug Abuse Patient Records regulations: The Federal rules restrict any use of the information to criminally investigate or prosecute any alcohol or drug abuse patient.[facility] HospitalIn the event this information is protected by the Federal Confidentiality of Alcohol and Drug Abuse Patient Records regulations: The Federal rules restrict any use of the information to criminally investigate or prosecute any alcohol or drug abuse patient.[facility] HospitalIn the event this information is protected by the Federal Confidentiality of Alcohol and Drug Abuse Patient Records regulations: The Federal rules restrict any use of the information to criminally investigate or prosecute any alcohol or drug abuse patient.[facility] HospitalIn the event this information is protected by the Federal Confidentiality of Alcohol and Drug Abuse Patient Records regulations: The Federal rules restrict any use of the information to criminally investigate or prosecute any alcohol or drug abuse patient.[facility] HospitalIn the event this information is protected by the Federal Confidentiality of Alcohol and Drug Abuse Patient Records regulations: The Federal rules restrict any use of the information to criminally investigate or prosecute any alcohol or drug abuse patient.[facility] HospitalIn the event this information is protected by the Federal Confidentiality of Alcohol and Drug Abuse Patient Records regulations: The Federal rules restrict any use of the information to criminally investigate or prosecute any alcohol or drug abuse patient.[facility] HospitalIn the event this information is protected by the Federal Confidentiality of Alcohol and Drug Abuse Patient Records regulations: The Federal rules restrict any use of the information to criminally investigate or prosecute any alcohol or drug abuse patient.[facility] HospitalIn the event this information is protected by the Federal Confidentiality of Alcohol and Drug Abuse Patient Records regulations: The Federal rules restrict any use of the information to criminally investigate or prosecute any alcohol or drug abuse patient.[facility] HospitalIn the event this information is protected by the Federal Confidentiality of Alcohol and Drug Abuse Patient Records regulations: The Federal rules restrict any use of the information to criminally investigate or prosecute any alcohol or drug abuse patient.[facility] Reason for Visit (unrecogniz ed section and [...] Reason Comments Patient Update [facility] with report/hand-off Reason Comments Post Op CABG Follow Up 2-week follow-up Reason Comments Appointment Appointment Reason Comments Established Patient Reason Comments Post Op 08/30/24 CABG Reason Comments CARD Follow Up 3 Month s/p CABG Reason Comments Established Patient Reason Comments Cardiac Rehab Initial Outreach Care Teams (unrecognized sec tion and content) Director [employer] Relationship Specialty Start Date End Date Dave Osman JrRon [address] [place] [phone] PCP - General Family Practice 07/06/20 Director [employer] Relationship Specialty Start Date End Date Dave Osman JrRon [address] [place] [phone] PCP - General Family Practice 07/06/20 Director [employer] Relationship Specialty Start Date End Date Dave Osman [address] [place] [phone] PCP - General Family Practice 07/06/20 Director [employer] Relationship Specialty Start Date End Date Dave Osman [address] [place] [phone] PCP - General Family Medicine 07/06/20 Director [employer] Relationship Specialty Start Date End Date Dave Osman [address] [place] [phone] PCP - General Family Medicine 07/06/20 Director [employer] Relationship Specialty Start Date End Date Dave Osman Nelson Quispe [address] [place] [phone] PCP - General Family Medicine 07/06/20 Director [employer] Relationship Specialty Start Date End Date Dave Osman Nelson Quispe [address] [place] [phone] PCP - General Family Medicine 07/06/20 Director [employer] Relationship Specialty Start Date End Date Deirdre Rico MD [address] [place] [address] PCP - General 02/22/13 Team Status: Active Member Role Status Dates Mario Bellamy PA PA Primary Care Provider Active Team Status: Inactive Member Role Status Dates Mario Bellamy PA PA Attending Provider Active Team Status: Inactive Member Role Status Dates Mario Bellamy PA, PA Primary Care Provide r, Attending Provider, Referring Provider Active Team Status: Active Member Role Status Dates Mario Bellamy PA PA Primary Care Provider Active Eden Ibrahim MA Attending Provider Acti ve Team Status: Inactive Member Role Status Dates Mario Bellamy PA, PA Primary Care Provider Active Start: April 12, 2024 End: April 12, 2024 Mario Bellamy PA, PA Attending Provider Active St art: April 12, 2024 End: April 12, 2024 Mario Bellamy PA, PA Referring Provider Active St art: April 12, 2024 End: April 12, 2024 Team Status: Inactive Member Role Status Dates Mario Bellamy PA, PA Primary Care Provider Active Start: July 10, 2024 End: July 10, 2024 Mario Bellamy PA, PA Attending Provider Active St art: July 10, 2024 End: July 10, 2024 Mario Bellamy PA, PA Referring Provider Active St art: July 10, 2024 End: July 10, 2024 Team Status: Inactive Member Role Status Dates Mario Bellamy PA, PA Primary Care Provider Active Start: July 12, 2024 End: July 12, 2024 Mario Bellamy PA, PA Attending Provider Active St art: July 12, 2024 End: July 12, 2024 Mario Bellamy PA, PA Referring Provider Active St art: July 12, 2024 End: July 12, 2024 Director [employer] Relationship Specialty Start Date End Date Mario Bellamy [address] [facility] [address] [place] [address] PCP - General Family Medicine 08/15/24 Director [employer] Relationship Specialty Start Date End Date Mario Bellamy [address] [facility] [address] [place] [address] PCP - General Family Medicine 08/15/24 Director [employer] Relationship Specialty Start Date End Date Mario Bellamy [address] [facility] [address] [place] [address] PCP - General Family Medicine 08/15/24 Director [employer] Relationship Specialty Start Date End Date Mario Bellamy [address] [facility] [address] [place] [address] PCP - General Family Medicine 08/15/24 Director [employer] Relationship Specialty Start Date End Date Mario Bellamy [address] [facility] [address] [place] [address] PCP - General Family Medicine 08/15/24 Director [employer] Relationship Specialty Start Date End Date Mario Bellamy [address] [facility] [address] [place] [address] PCP - General Family Medicine 08/15/24 Director [employer] Relationship Specialty Start Date End Date Mario Bellamy [address] [facility] [address] [place] [address] PCP - General Family Medicine 08/15/24 Director [employer] Relationship Specialty Start Date End Date Mario Bellamy [address] [facility] [address] [place] [address] PCP - General Family Medicine 08/15/24 Director [employer] Relationship Specialty Start Date End Date Mario Bellamy [address] [facility] [address] [place] [address] PCP - General Family Medicine 08/15/24 Team Status: Inactive Member Role Status Dates AMADO Wood Primary Care Provider Active Start: August 09, 2024 End: August 09, 2024 Mario Wayt PA, PA Attending Provider Active St art: August 09, 2024 End: August 09, 2024 Mario Bellamy PA, PA Referring Provider Active St art: August 09, 2024 End: August 09, 2024 Team Status: Inactive Member Role Status Dates Mario Bellamy PA, PA Primary Care Provider Active Start: September 25, 2024 End: September 25, 2024 Mario Bellamy PA, PA Attending Provider Active St art: September 25, 2024 End: September 25, 2024 Mario Bellamy PA, PA Referring Provider Active St art: September 25, 2024 End: September 25, 2024 Director [employer] Relationship Specialty Start Date End Date Mario Bellamy Jose [address] [facility] [address] [place] [address] PCP - General Family Medicine 08/15/24 Director [employer] Relationship Specialty Start Date End Date Osmin Bellamygerardo Garcia [address] [facility] [address] [place] [address] PCP - General Family Medicine 08/15/24 Director [employer] Relationship Specialty Start Date End Date Osmin Bellamygerardo Garcia [address] [facility] [address] [place], [place] [id number] PCP - General Family Medicine 08/15/24 Team [...] November 15, 2024 End: November 15, 2024 Director [employer] Relationship Specialty Start Date End Date Mario Bellamy [address] [phone] PCP - General Family Medicine 08/15/24 Team Status: Inactive Member Role/Relationship Status Dates Mario Bellamy PA, PA Primary Care Provider Active Start: December 06, 2024 End: December 06, 2024 Mario Bellamy PA, PA Attending Provider Active St art: December 06, 2024 End: December 06, 2024 Mario Bellamy PA, PA Referring Provider Active St art: December 06, 2024 End: December 06, 2024 Director [employer] Relationship Specialty Start Date End Date Mario Bellamy [address] [id number] PCP - General Family Medicine 08/15/24 Director [employer] Relationship Specialty Start Date End Date Mario Bellamy [address] [phone] PCP - General Family Medicine 08/15/24 Director [employer] Relationship Specialty Start Date End Date Mario Bellamy [address] [phone] PCP - General Family Medicine 08/15/24 Team Status: Active Member Role/Relationship Status Dates Mario Bellamy PA, PA Primary care physician Active Team Status: Inactive Member Role/Relationship Status Dates Mario Bellamy PA, PA Primary care physician Active Start: September 25, 2024 End: September 25, 2024 Mario Bellamy PA, PA Attending physician Active S tart: September 25, 2024 End: September 25, 2024 Mario Bellamy PA, PA Referring Provider Active St art: September 25, 2024 End: September 25, 2024 Team Status: Inactive Member Role/Relationship Status Dates Mario Bellamy PA, PA Primary care physician Active Start: October 16, 2024 End: October 16, 2024 Mario Bellamy PA, PA Attending physician Active S tart: October 16, 2024 End: October 16, 2024 Mario Bellamy PA, PA Referring Provider Active St art: October 16, 2024 End: October 16, 2024 Team Status: Inactive Member Role/Relationship Status Dates Mario Bellamy PA, PA Primary care physician Active Start: November 15, 2024 End: November 15, 2024 Mario Bellamy PA, PA Attending physician Active S tart: November 15, 2024 End: November 15, 2024 Mario Bellamy PA, PA Referring Provider Active St art: November 15, 2024 End: November 15, 2024 Team Status: Inactive Member Role/Relationship Status Dates Mario Bellamy PA, PA Primary care physician Active Start: December 06, 2024 End: December 06, 2024 Mario Bellamy PA, PA Attending physician Active S tart: December 06, 2024 End: December 06, 2024 Mario Bellamy PA, PA Referring Provider Active St art: December 06, 2024 End: December 06, 2024 Team Status: Inactive Member Role/Relationship Status Dates Mario Bellamy PA, PA Primary care physician Active Start: December 11, 2024 End: December 11, 2024 Mario Bellamy PA, PA Attending physician Active S tart: December 11, 2024 End: December 11, 2024 Mario Bellamy PA, PA Referring Provider Active St art: December 11, 2024 End: December 11, 2024 Team Status: Inactive Member Role/Relationship Status Dates Mario Bellamy PA, PA Primary care physician Active Start: December 14, 2024 End: December 14, 2024 Mario Bellamy PA, PA Attending physician Active S tart: December 14, 2024 End: December 14, 2024 Mario Bellamy PA, PA Referring Provider Active St art: December 14, 2024 End: December 14, 2024 Team Status: Active Member Role/Relationship Status Dates Mario Bellamy PA, PA Primary care physician Active Start: January 03, 2025 Dr. Dave Gaines MD Attending physician Active Start: January 03, 2025 Dr. Dave Gaines MD Referring Provider Active Start: January 03, 2025 Team Status: Active Member Role/Relationship Status Dates Mario Bellamy PA, PA Primary care physician Active Start: January 06, 2025 Dr. Dave Gaines MD Attending physician Active Start: January 06, 2025 Dr. Dave Gaines MD Referring Provider Active Start: January 06, 2025 Team Status: Inactive Member Role/Relationship Status Dates Mario FISCHER, PA Primary care physician Active Start: January 03, 2025 End: January 07, 2025 Dr. Dave Gaines MD Attending physician Active Start: January 03, 2025 End: January 07, 2025 Dr. Dave Gaines MD Referring Provider Active Start: January 03, 2025 End: January 07, 2025 Team Status: Inactive Member Role/Relationship Status Dates Mario FISCHER, PA Primary care physician Active Start: January 06, 2025 End: January 07, 2025 Dr. Dave Gaines MD Attending physician Active Start: January 06, 2025 End: January 07, 2025 Dr. Dave Gaines MD Referring Provider Active Start: January 06, 2025 End: January 07, 2025 Team Status: Active Member Role/Relationship Status Dates Mario FISCHER, PA Primary care physician Active Start: January 08, 2025 Dr. Dave Gaines MD Attending physician Active Start: January 08, 2025 Dr. Dave Gaines MD Referring Provider Active Start: January 08, 2025 Team Status: Inactive Member Role/Relationship Status Dates Mario Bellamy PA, PA Primary care physician Active Start: January 08, 2025 End: January 08, 2025 Mario FISCHER, PA Referring Provider Active St art: January 08, 2025 End: January 08, 2025 AMADO Elliott Attending physician Active Start: January 08, 2025 End: January 08, 2025 Goals (unrecognized section and content) Goals may [...] BE BASED ON THE PRIMARY CLINICAL RECORDS. [employer] provides no warranty or guarantee of the accuracy or completeness of information in this document.
[2025-02-05 10:09] LABS: Calprotectin, Stool 71 ug/g (0-120)
== END | disposition home or self-care (01) ==
LOC: LABSPEC 07:16
PROVIDERS: PCP Physician Assistant; Referring Provider Student in an Organized Health Care Education/Training Program; Visit Provider Student in an Organized Health Care Education/Training Program
DX: K58.9 Irritable bowel syndrome, unspecified (principal); R19.7 Diarrhea, unspecified
CPT/HCPCS: 83993; 87177; 87209; 87329

== ENCOUNTER 2025-02-05 08:00 | Outpatient (RCR) | payer MEDICARE, SELFPAY ==
--- NOTE | 2025-01-30 07:35 | PCM.CR.ITP ---
Exercise - Initial Assessment Visit Session #:: 10 Physician Prescribed Exercise Modalities: Treadmill, Schwinn Airdyne AD-7 and SciFit Stepper Nutrition - Initial Assessment Weight Mgt (Other Care) Height: 5 ft 10 in Weight:: 207 lb 8 oz BMI: 29.7 Psychosocial - Initial Assess Referral to Behavioral Health PS - Interventions: Yes: Attend Stress Management Classes Exercise - 30-day Assessment Visit Date of Eval: 01/30/25 Session #:: 10 Physician Prescribed Exercise Modalities: Treadmill, Schwinn Airdyne AD-7 and SciFit Stepper Frequency: 3x/week for 12 weeks [36 sessions] Intensity: 60-80% of age predicted maximum heart rate reserve Duration: 30 - 45 minutes Current METSs:: 4.7 Target Heart Rate:: 91-121 Current RPE:: 10-12 Maximum Excercise HR:: 122 Resting Blood Pressure: 140/70 Maximum Exercise Blood Pressure: 178/82 EKG Type: NSR -ST w/1st degree block w/ occas PAC, PVC, bigeminy, couplets Outcomes & Goals Goals:: Verbalizes understanding of THR, RPE & goal METS by session 6, Documents in home exercise log/reports 30 min aerobic 5 day/wk by DC, Demonstrates accurate pulse taking by DC and Other additional outcome/goals: see below Intervention & Plan Exercise Program Goals: Instruct on personal THR & RPE, Instruct on MET level & personal MET goal, Show patient to take own pulse /validate performance until accurate, Instruct on home exercise and Other additional plan/int Physical Activity Home Exercise Physical Activity - Home Exercise: Safe Exercise, Warm-up, Self-monitoring, Cool-Down, Home Exercise > 30 min Daily and Sitting Time <3 hours/daily Outcomes & Goals Outcomes/Goals: Demonstrates correct Warm-up/exercise Cool-Down (S3) if = 2.5 METs, Verbalizes symptoms of exercise intolerance by Session 3 (S3), Demonstrate safe equipment use (S3) & follows exercise prescrition (6) and Other: See below Intervention & Plan Plan/Intervention: Instruct warm-up & cool-down if exercising at > 2 METs, Instruct on symptoms of exercise intolerance & actions to take, Instruct & monitor on saf, Assess intial functional capacity & safety risk and Other See below 30-day Reassessments 30 day Reassessments:: Progressing Reassessment Notes & Comments:: Pt oriented to equipment. RPE explained to pt. Pt demonstrates understanding in his daily sessions. Exercise - 60-day Assessment Physician Prescribed Exercise Modalities: Treadmill, Schwinn Airdyne AD-7 and SciFit Stepper Exercise - 90-day Assessment Physician Prescribed Exercise Modalities: Treadmill, Schwinn Airdyne AD-7 and SciFit Stepper Exercise - Final/Discharge Physician Prescribed Exercise Modalities: Treadmill, Schwinn Airdyne AD-7 and SciFit Stepper Nutrition - 30-Day Assessment Program Goals Nutrition Program Goals Patient has diagnosis of Hyperlipidemia (ICD E78)?: Yes Visit Date of Eval: 01/30/25 Session #:: 10 Cholesterol/Lipids (Other Core Measures) Determine presence & major risk factors that modify LDL goal: Cigarette smoking, Hypertension or hypertensive medication, Low HDL cholesterol <40 mg/dL*, Family history of premature CHD in Male < 55 years: female <65 yearsFa and Age men > 45 years; women >/= 55 years Outcomes/Goals: Pt IDs own risk factors & lifestyle modifications by Session 10, Verbalizes symptoms of angina & response by session 3., Pt independently manages and Other Additional Outcomes/Goals: Intervention/Plan: Advocate for lipid panel cholesterol medication if applicable, Instruct on personal lipid levels & lipid goals/NCEP guidelines, Instruct on cholesterol and Other additional plan/int Referral to dietitian:: No (Declines. Nutrition survey score of 3.) Diabetes (Other Core Measures) Diabetes Type: Diagnosis Type II ICD-10 E11 Insulin dependent injection/pump?: Yes Non-Insulin Dependent?: No Referral to Diabetic Clinic:: No Reassessment Notes & Comments:: Pt encouraged to monitor her BS at home as instructed by his physician. Weight Mgt (Other Care) Height: 5 ft 10 in Weight:: 207 lb 8 oz BMI: 29.7 Diagnosis Overweight/Obesity BMI> 30% ICD-10 E66: No Diagnosis High BMI/Morbid Obesity BMI> 35% ICD-10 Z68: No Outcomes/Goals: Pt sets, maintains & shows weight loss goal & trend during rehab and Other additional outcomes/goals Intervention/Plan: Instruct on ideal BMI & set weight loss goal w/patient, Assist pt to ID & incorporate diet changes for weight loss by S9, Refer to Structured Weight Loss program as appropriate, Encourage goal of using 250-300dcal per session for weight loss and Other additional plan/interventions Healthy Eating Habits Will attend diet classes:: Yes Outcomes/Goals:: Consume diet rich in vegs,fruits,whole grain/high fiber,fish,lean meat, Limit sat/trans fats,cholesterol & added salts & sugars and Other additional outcome/goals: Intervention/Plan:: Assess current eating habits and Other Additional plan/interventions 30-day Reassessments:: Progressing Reassessment Notes & Comments:: Pt is scheduled to attend nutrition classes with our vermin exterminator. Heart healthy low sodium diet encouraged. Education Gave educational materials for:: Signs & symptoms of hypoglycemia, Signs & symptoms of hyperglycemia, Relate diabetes to coronary artery disease and Healthy eating Nutrition - 60-Day Assessment Weight Mgt (Other Care) Height: 5 ft 10 in Weight:: 207 lb 8 oz BMI: 29.7 Core - 30-Day Assessment Visit Date of Eval: 01/30/25 Session #:: 10 Medication Compliance Preventative Medication(s):: Aspirin, Statin/lipid and Beta gustavo H/O mental health issues: depression, anxiety, or addiction?: No Doesn’t believe in the benefits of treatment?: No Believes medications are unnecessary or harmful?: No Has a concern about medication side effects?: No Expresses concern over the cost of medications?: No Outcomes/Goals: Verbalizes medications,desired effect & common side effects @ DC, Pt self-reports following medication regimen, Keeps card in wallet w/medications listed by DC and Other additional outcome/goals: Interventions/plans: Instruct on medication effects & side effects, Review medication list w/patient every two weeks, Instruct importance of taking meds as ordered & assist problem solving and Other additional 30-day Reassessments:: Met Reassessment Notes & Comments:: Pt is currently taking meds as prescribed. Pt to attend cardiac meds class. Tobacco Use Tobacco Use: Non-smoker Hypertension Resting Blood Pressure:: 140/70 [place] [employer] Hypertension Guidelines Peak Exercise Blood Pressure:: 178/82 Outcomes/Goals: Able to verbalize/achieve optimal blood pressure <130/80, Incorporates diet changes & exercise for blood pressure control by DC and Other additional outcomes/goals Interventions/plan: Instruct on optimal blood pressure, hypertension & medications, Instruct on effects of sodium, alcohol, stress, exercise &hypertension and Other additional plan/interventions 30 day Reassessments:: Progressing Reassessment Notes & Comments:: Pt's BP's are slightly elevated on some days. Weight loss and a low sodium heart healthy diet encouraged. Will continue to monitor and report to pt's physician if necessary. Tobacco Cessation Referral Smoking Cessation Referral:: No Individual Education/Counseling:: No Education Schedule Given:: Yes Psychosocial - 30-Day Assess VIsit Date of Eval: 01/30/25 Session #:: 10 History of previous Mental disease:: No Psychosocial Test Tool Used:: [employer] QOL Cardiac and PHQ-9 Questionnaire phq-9 Severity See PHQ-9 Score: 0 Referral to Behavioral Health PS - Interventions: Yes: Attend Stress Management Classes Outcomes/Goals: See list Psychosocial Outcomes/Goals:: ID's personal stressors & 2 strategies to manage stress by discharge and Other Additional outcome/goals: Intervention/Plan: See List Interventions/Plan:: Assess stressors,coping strategies & signs of derpression on admission, Instruct/assist pt to develop coping & personal stress Mgt strategies, Refer to Behavioral Health if appropriate, Refer to Physician if appropriate, Instruct patient to recognize signs & symptoms of depression, Instruct patient to recog and Other additional plan/intervention 30-day Reassessments: 30 day Reassessments:: Progressing Reassessment Notes & Comments:: Pt denies any psychosocial issues at this time. Pt to attend stress management class. Will reassess every 30 days. Psychosocial - 60-Day Assess Referral to Behavioral Health PS - Interventions: Yes: Attend Stress Management Classes Outcomes/Goals: See list Psychosocial Outcomes/Goals:: ID's personal stressors & 2 strategies to manage stress by discharge and Other Additional outcome/goals: Psychosocial - 90-Day Assess Referral to Behavioral Health PS - Interventions: Yes: Attend Stress Management Classes Psychosocial - Final Assessmen Referral to Behavioral Health PS - Interventions: Yes: Attend Stress Management Classes Nutrition - 90-Day Assessment Weight Mgt (Other Care) Height: 5 ft 10 in Weight:: 207 lb 8 oz BMI: 29.7 Nutrition - Final Assessment Weight Mgt (Other Care) Height: 5 ft 10 in Weight:: 207 lb 8 oz BMI: 29.7
[2025-01-30 07:44] VITALS: BP 140/70; BMI 29.7
== END 2025-02-07 23:59 ==
LOC: CR 08:00
PROVIDERS: PCP Physician Assistant; Referring Provider Thoracic Surgery (Cardiothoracic Vascular Surgery); Visit Provider Thoracic Surgery (Cardiothoracic Vascular Surgery)
DX: Z95.1 Presence of aortocoronary bypass graft (principal)
CPT/HCPCS: 93798

== ENCOUNTER → 2025-02-18 | Outpatient (CLI) | payer MEDICARE, SELFPAY ==
[2025-01-30 07:44] VITALS: BMI 29.7
--- NOTE | 2025-02-18 12:50 | ECHOCS_ITS ---
Reason For Study Reason For Study: CORONARY ARTERY DISEASE Procedure This was a 2D Doppler, Color Flow transthoracic echocardiogram. The study was technically difficult. Contrast injection was performed. Exam performed in department. Left Ventricle Normal left ventricle. The left ventricular ejection fraction is 30 %. There is moderate to severe global hypokinesis of the left ventricle. Right Ventricle Normal RV size. Normal systolic function. Atria Normal left atrium. Normal right atrium. Mitral Valve Normal mitral valve. Mild (1+) eccentric mitral valve insufficiency. Tricuspid Valve Normal tricuspid valve. Mild-Moderate (1-2+) tricuspid valve insufficiency. Pulmonary artery systolic pressure is 40 mmHg. Aortic Valve Trisinus/trileaflet aortic valve. Mild focal aortic valve calcification. Peak aortic valve gradient 21 mmHg. Mean aortic valve gradient 12 mmHg. Pulmonic Valve Normal pulmonic valve. Great Vessels Normal aortic root. The pulmonary artery is normal size. Inferior vena cava collapse with respiration. Pericardium/Pleural No pericardial effusion. Medication 22 gauge I.V. with prn adaptor inserted into left arm. Diluted definity 2ml given slow IV push to enhance endocardial definition. MMode/2D Measurements & Calculations LVIDd: 5.6 cm IVSd: 1.2 cm LVOT diam: 2.3 cm LVIDs: 4.1 cm LVPWd: 1.00 cm RVDd: 3.8 cm FS: 26.5 % LVOT area: 4.1 cm2 Ao root diam: 3.7 cm LAV(MOD-bp): 40.9 ml LVAd ap4: 41.6 cm2 LAV(MOD-bp) Indexed: 19.6 ml/m2 LVLd ap4: 9.5 cm LAV(MOD-sp2): 45.0 ml EDV(MOD-sp4): 153.9 ml LAV(MOD-sp4): 34.3 ml EDV(sp4-el): 155.5 ml LVAs ap4: 33.6 cm2 LVLs ap4: 8.6 cm ESV(MOD-sp4): 106.8 ml ESV(sp4-el): 111.1 ml EF(MOD-sp4): 30.6 % EF(sp4-el): 28.6 % LVAd ap2: 40.1 cm2 SV(MOD-sp4): 47.1 ml SV(MOD-sp2): 40.0 ml LVLd ap2: 9.2 cm SI(MOD-sp4): 22.5 ml/m2 SI(MOD-sp2): 19.1 ml/m2 EDV(MOD-sp2): 142.0 ml EDV(sp2-el): 148.3 ml LVAs ap2: 33.3 cm2 LVLs ap2: 9.0 cm ESV(MOD-sp2): 102.0 ml ESV(sp2-el): 104.2 ml EF(MOD-sp2): 28.1 % SV(sp4-el): 44.4 ml Ao sinus diam: 3.[address] Junction: 3.2 cm LA dimension(2D): 4.3 cm LA A4 area: 14.3 cm2 RA A4 area: 10.9 cm2 TAPSE: 1.2 cm Time Measurements MV dec time: 0.12 sec Doppler Measurements & Calculations MV E max praneeth: 96.2 cm/sec Lat Peak E' Praneeth: 9.1 cm/sec Med Peak E' Praneeth: 5.0 cm/sec MV A max praneeth: 52.9 cm/sec E/E' lat: 10.6 E/E' med: 19.2 MV E/A: 1.8 MV dec slope: 829.0 cm/sec2 Ao V2 max: 229.0 cm/sec LV V1 max: 92.0 cm/sec Ao max P.1 mmHg LV V1 max P.4 mmHg Ao V2 mean: 166.9 cm/sec LV V1 mean P.8 mmHg Ao mean P.6 mmHg LV V1 mean: 62.2 cm/sec Ao V2 VTI: 49.9 cm LV V1 VTI: 22.0 cm AV (velocity ratio): 0.44 RANDAL(I,D): 1.8 cm2 RANDAL(V,D): 1.7 cm2 SV(LVOT): 91.0 ml PA V2 max: 63.0 cm/sec TR max praneeth: 302.4 cm/sec TR max P.6 mmHg ECHO/Echo Complete W/ Contrast Interpretation Summary The left ventricular ejection fraction is 30 %. Normal left ventricle. Mild (1+) eccentric mitral valve insufficiency. Pulmonary artery systolic pressure is 40 mmHg. Mild focal aortic valve calcification. Mean aortic valve gradient 12 mmHg. Contrast injection was performed. Ordering Physician: Nickolas Renteria Referring Physician: Nickolas Renteria MD Performed By: Treva Farooq RDCS
== END | disposition home or self-care (01) ==
LOC: CVS 12:49
PROVIDERS: PCP Physician Assistant; Referring Provider Internal Medicine Cardiovascular Disease; Visit Provider Internal Medicine Cardiovascular Disease
DX: I42.9 Cardiomyopathy, unspecified (principal); I25.10 Atherosclerotic heart disease of native coronary artery without angina pectoris
CPT/HCPCS: 93306; Q9957; A4216; C8929

== ENCOUNTER 2025-03-05 08:00 | Outpatient (RCR) | payer MEDICARE, SELFPAY ==
[2025-01-30 07:44] VITALS: BMI 29.7
--- NOTE | 2025-02-27 08:12 | PCM.CR.ITP ---
Exercise - Initial Assessment Physician Prescribed Exercise Modalities: Treadmill, Schwinn Airdyne AD-7 and SciFit Stepper Nutrition - Initial Assessment Weight Mgt (Other Care) Height: 5 ft 10 in Weight:: 209 lb 8 oz BMI: 30.0 Core - Initial Assessment Hypertension Resting Blood Pressure:: 130/72 [employer] Hypertension Guidelines Psychosocial - Initial Assess Referral to Behavioral Health PS - Interventions: Yes: Attend Stress Management Classes Exercise - 30-day Assessment Physician Prescribed Exercise Modalities: Treadmill, Schwinn Airdyne AD-7 and SciFit Stepper Exercise - 60-day Assessment Visit Date of Eval: 02/27/25 Session #:: 21 Physician Prescribed Exercise Modalities: Treadmill, Schwinn Airdyne AD-7 and SciFit Stepper Frequency: 3x/week for 12 weeks [36 sessions] Intensity: 60-80% of age predicted maximum heart rate reserve Duration: 30 - 45 minutes Current METSs:: 4.8 Target Heart Rate:: 91-121 Current RPE:: 12-13 Maximum Excercise HR:: 125 Resting Blood Pressure: 130/72 Maximum Exercise Blood Pressure: 140/86 EKG Type: NSR-ST w/1st degree block w/occas PAC, freq PVC, bigeminy and couplets Outcomes & Goals Goals:: Verbalizes understanding of THR, RPE & goal METS by session 6, Documents in home exercise log/reports 30 min aerobic 5 day/wk by DC, Demonstrates accurate pulse taking by DC and Other additional outcome/goals: see below Intervention & Plan Exercise Program Goals: Instruct on personal THR & RPE, Instruct on MET level & personal MET goal, Show patient to take own pulse /validate performance until accurate, Instruct on home exercise and Other additional plan/int Physical Activity Home Exercise Physical Activity - Home Exercise: Safe Exercise, Warm-up, Self-monitoring, Cool-Down, Home Exercise > 30 min Daily and Sitting Time <3 hours/daily Outcomes & Goals Outcomes/Goals: Demonstrates correct Warm-up/exercise Cool-Down (S3) if = 2.5 METs, Verbalizes symptoms of exercise intolerance by Session 3 (S3), Demonstrate safe equipment use (S3) & follows exercise prescrition (6) and Other: See below Intervention & Plan Plan/Intervention: Instruct warm-up & cool-down if exercising at > 2 METs, Instruct on symptoms of exercise intolerance & actions to take, Instruct & monitor on saf, Assess intial functional capacity & safety risk and Other See below 30-day Reassessments 30 day Reassessments:: Progressing Reassessment Notes & Comments:: Proper warm up and cool down demonstrated and explained to pt. Pt is able to return demonstration in their daily sessions. Exercise - 90-day Assessment Physician Prescribed Exercise Modalities: Treadmill, Schwinn Airdyne AD-7 and SciFit Stepper Exercise - Final/Discharge Physician Prescribed Exercise Modalities: Treadmill, Schwinn Airdyne AD-7 and SciFit Stepper Nutrition - 30-Day Assessment Weight Mgt (Other Care) Height: 5 ft 10 in Weight:: 209 lb 8 oz BMI: 30.0 Nutrition - 60-Day Assessment Program Goals Nutrition Program Goals Patient has diagnosis of Hyperlipidemia (ICD E78)?: Yes Visit Date of Eval: 02/27/25 (Nutrition survey score of 3.) Session #:: 21 Cholesterol/Lipids (Other Core Measures) Determine presence & major risk factors that modify LDL goal: Cigarette smoking, Hypertension or hypertensive medication, Low HDL cholesterol <40 mg/dL*, Family history of premature CHD in Male < 55 years: female <65 yearsFa and Age men > 45 years; women >/= 55 years Outcomes/Goals: Pt IDs own risk factors & lifestyle modifications by Session 10, Verbalizes symptoms of angina & response by session 3., Pt independently manages and Other Additional Outcomes/Goals: Intervention/Plan: Advocate for lipid panel cholesterol medication if applicable, Instruct on personal lipid levels & lipid goals/NCEP guidelines, Instruct on cholesterol and Other additional plan/int Weight Mgt (Other Care) Height: 5 ft 10 in Weight:: 209 lb 8 oz BMI: 30.0 Diagnosis Overweight/Obesity BMI> 30% ICD-10 E66: Yes Diagnosis High BMI/Morbid Obesity BMI> 35% ICD-10 Z68: No Outcomes/Goals: Pt sets, maintains & shows weight loss goal & trend during rehab and Other additional outcomes/goals Intervention/Plan: Instruct on ideal BMI & set weight loss goal w/patient, Assist pt to ID & incorporate diet changes for weight loss by S9, Refer to Structured Weight Loss program as appropriate, Encourage goal of using 250-300dcal per session for weight loss and Other additional plan/interventions Healthy Eating Habits Will attend diet classes:: Yes Outcomes/Goals:: Consume diet rich in vegs,fruits,whole grain/high fiber,fish,lean meat, Limit sat/trans fats,cholesterol & added salts & sugars and Other additional outcome/goals: Intervention/Plan:: Assess current eating habits and Other Additional plan/interventions 30-day Reassessments:: Progressing Reassessment Notes & Comments:: Pt is attending nutrition classes this week. Pt understands the benefits of a hearth healthy low sodium diet. Education Gave educational materials for:: Signs & symptoms of hypoglycemia, Signs & symptoms of hyperglycemia, Relate diabetes to coronary artery disease and Healthy eating Core - Final Assessment Hypertension Resting Blood Pressure:: 130/72 [employer] Hypertension Guidelines Core - 60-Day Assessment Visit Date of Eval: 02/27/25 Session #:: 21 Medication Compliance Preventative Medication(s):: Aspirin, Statin/lipid and Beta gustavo H/O mental health issues: depression, anxiety, or addiction?: No Doesn’t believe in the benefits of treatment?: No Believes medications are unnecessary or harmful?: No Has a concern about medication side effects?: No Expresses concern over the cost of medications?: No Outcomes/Goals: Verbalizes medications,desired effect & common side effects @ DC, Pt self-reports following medication regimen, Keeps card in wallet w/medications listed by DC and Other additional outcome/goals: Interventions/plans: Instruct on medication effects & side effects, Review medication list w/patient every two weeks, Instruct importance of taking meds as ordered & assist problem solving and Other additional Tobacco Use Tobacco Use: Non-smoker Hypertension Resting Blood Pressure:: 130/72 Resting Blood Pressure:: 130/72 [employer] Hypertension Guidelines Peak Exercise Blood Pressure:: 140/86 Outcomes/Goals: Able to verbalize/achieve optimal blood pressure <130/80, Incorporates diet changes & exercise for blood pressure control by DC and Other additional outcomes/goals Interventions/plan: Instruct on optimal blood pressure, hypertension & medications, Instruct on effects of sodium, alcohol, stress, exercise &hypertension and Other additional plan/interventions 30 day Reassessments:: Progressing Reassessment Notes & Comments:: Pt's BP's are within AHA normal limits on most days. Will continue to monitor and report to pt's physician if necessary. Pt is learning the importance of a low sodium diet and BP this week in nutrition class. Tobacco Cessation Referral Smoking Cessation Referral:: No Individual Education/Counseling:: No Education Schedule Given:: Yes Psychosocial - 30-Day Assess Referral to Behavioral Health PS - Interventions: Yes: Attend Stress Management Classes Outcomes/Goals: See list Psychosocial Outcomes/Goals:: ID's personal stressors & 2 strategies to manage stress by discharge and Other Additional outcome/goals: Psychosocial - 60-Day Assess VIsit Date of Eval: 02/27/25 Session #:: 21 History of previous Mental disease:: No Psychosocial Test Tool Used:: Ferrans Power QOL Cardiac and PHQ-9 Questionnaire phq-9 Severity See PHQ-9 Score: 0 Referral to Behavioral Health PS - Interventions: Yes: Attend Stress Management Classes Outcomes/Goals: See list Psychosocial Outcomes/Goals:: ID's personal stressors & 2 strategies to manage stress by discharge and Other Additional outcome/goals: Intervention/Plan: See List Interventions/Plan:: Assess stressors,coping strategies & signs of derpression on admission, Instruct/assist pt to develop coping & personal stress Mgt strategies, Refer to Behavioral Health if appropriate, Refer to Physician if appropriate, Instruct patient to recognize signs & symptoms of depression, Instruct patient to recog and Other additional plan/intervention 30-day Reassessments: 30 day Reassessments:: Met Reassessment Notes & Comments:: Pt denies any psychosocial issues at this time. Pt to attended stress management class. Will reassess every 30 days. Psychosocial - 90-Day Assess Referral to Behavioral Health PS - Interventions: Yes: Attend Stress Management Classes Psychosocial - Final Assessmen Referral to Behavioral Health PS - Interventions: Yes: Attend Stress Management Classes Nutrition - 90-Day Assessment Weight Mgt (Other Care) Height: 5 ft 10 in Weight:: 209 lb 8 oz BMI: 30.0 Nutrition - Final Assessment Weight Mgt (Other Care) Height: 5 ft 10 in Weight:: 209 lb 8 oz BMI: 30.0
[2025-02-27 08:22] VITALS: BP 130/72
== END 2025-03-09 23:59 ==
LOC: CR 08:00
PROVIDERS: PCP Physician Assistant; Referring Provider Thoracic Surgery (Cardiothoracic Vascular Surgery); Visit Provider Thoracic Surgery (Cardiothoracic Vascular Surgery)
DX: Z95.1 Presence of aortocoronary bypass graft (principal)
CPT/HCPCS: 93798

== ENCOUNTER → 2025-03-31 | Outpatient (CLI) | payer MEDICARE, SELFPAY ==
[2025-03-27 09:10] VITALS: BMI 30.3
[2025-03-31 11:02] LABS: Hematocrit 40.3 % (40-54); Hemoglobin 13.7 g/dL (13.0-16.5); Immature Granulocytes Count 0.030 X10^3/uL (0.0-0.0); Mean Corp Hgb Conc 34.0 g/dL (32-36); Mean Corpuscular Volume 87.8 fL (80-94); Mean Platelet Vol. 8.9 fl (6.2-12.0); NRBC Flagged by Analyzer 0 % (0-5); Platelet Count 174 K/mm3 (150-450); RBC Distribution Width CV 13.1 % (11.6-14.6); RBC Distribution Width SD 42.2 fl (35.1-43.9); Red Blood Count 4.59 M/mm3 (4.6-6.2); White Blood Count 7.3 K/mm3 (4.4-11.0)
[2025-03-31 11:17] LABS: Creatinine, Urine (random) 174.00 mg/dL (39.00-259.00); Microalbumin,Random Urine 320.0 mg/L (<20 mg/L)
[2025-03-31 11:30] LABS: Anion Gap 11 (5-15); BUN 17 mg/dL (4-19); BUN/Creat Ratio 14.3 RATIO (10-20); Calcium,Total 9.5 mg/dL (7.6-11.0); Carbon Dioxide 24.7 mmol/L (21.0-32.0); Chloride 102 mmol/L (98-108); Glucose 174 mg/dL (70-99); Potassium 4.4 mmol/L (3.3-5.1)
[2025-03-31 11:40] LABS: AST(SGOT) 21 U/L (<=37); Alanine Aminotransfer ALT/SGPT 15 U/L (<=46); Albumin, Serum 4.2 g/dL (3.4-4.8); Alkaline Phosphatase 99 U/L (40-129); Anion Gap 11 (5-15); BUN 17 mg/dL (4-19); BUN/Creat Ratio 14.2 RATIO (10-20); Calcium,Total 9.5 mg/dL (7.6-11.0); Carbon Dioxide 24.9 mmol/L (21.0-32.0); Chloride 102 mmol/L (98-108); Cholesterol 168 mg/dL (<=200); Globulin 3.1 g/dL (2.2-4.2); Glucose 172 mg/dL (70-99); Low Density Lipoprotein Calc. 107 mg/dL; Potassium 4.4 mmol/L (3.3-5.1); T4 Total, Thyroxin 5.2 ug/dL (4.5-12.1); Triglycerides 102 mg/dL; Very Low Density Lipoprotein 20 mg/dL (5-40); cholesterol:hdl ratio screen 3.99
== END | disposition home or self-care (01) ==
LOC: LAB 10:11
PROVIDERS: Physician Assistant Medical; PCP Physician Assistant; Visit Provider Physician Assistant
DX: I42.9 Cardiomyopathy, unspecified (principal); E11.9 Type 2 diabetes mellitus without complications; I25.10 Atherosclerotic heart disease of native coronary artery without angina pectoris; I10 Essential (primary) hypertension; E03.9 Hypothyroidism, unspecified
CPT/HCPCS: 36415; 80048; 80053; 80061; 82043; 82570; 84436; 84443; 85025

== ENCOUNTER 2025-04-09 08:00 | Outpatient (RCR) | payer MEDICARE, SELFPAY ==
--- NOTE | 2025-03-27 08:41 | PCM.CR.ITP ---
Exercise - Initial Assessment Physician Prescribed Exercise Modalities: Schwinn Airdyne AD-7 and SciFit Stepper Nutrition - Initial Assessment Weight Mgt (Other Care) Height: 5 ft 10 in Weight:: 211 lb 8 oz BMI: 30.3 Psychosocial - Initial Assess Referral to Behavioral Health PS - Interventions: Yes: Attend Stress Management Classes and No: Referral to Behavioral Health if PHQ-9 score >9:, No: Referral to [facility] and No: Referral to Physician if PHQ-9 if score is 5-9: Exercise - 30-day Assessment Physician Prescribed Exercise Modalities: Schwinn Airdyne AD-7 and SciFit Stepper Exercise - 60-day Assessment Physician Prescribed Exercise Modalities: Schwinn Airdyne AD-7 and SciFit Stepper Exercise - 90-day Assessment Visit Date of Eval: 03/27/25 Session #:: 31 Physician Prescribed Exercise Modalities: Schwinn Airdyne AD-7 and SciFit Stepper Frequency: 3x/week for 12 weeks [36 sessions] Intensity: 60-80% of age predicted maximum heart rate reserve Duration: 30 - 45 minutes Current METSs:: 5.1 Target Heart Rate:: 91-121 Current RPE:: 13.5 Maximum Excercise HR:: 119 Resting Blood Pressure: 142/80 Maximum Exercise Blood Pressure: 156/88 EKG Type: NSR-ST w/ 1st degree block, occas PAC/PVC Outcomes & Goals Goals:: Verbalizes understanding of THR, RPE & goal METS by session 6, Documents in home exercise log/reports 30 min aerobic 5 day/wk by DC, Demonstrates accurate pulse taking by DC and Other additional outcome/goals: see below Intervention & Plan Exercise Program Goals: Instruct on personal THR & RPE, Instruct on MET level & personal MET goal, Show patient to take own pulse /validate performance until accurate, Instruct on home exercise and Other additional plan/int 30-day Reassessments 30 day Reassessments:: Progressing Reassessment Notes & Comments:: Pt has interest in THR and understands it's importance as explained in class. Physical Activity Home Exercise Physical Activity - Home Exercise: Safe Exercise, Warm-up, Self-monitoring, Cool-Down, Home Exercise > 30 min Daily and Sitting Time <3 hours/daily Outcomes & Goals Outcomes/Goals: Demonstrates correct Warm-up/exercise Cool-Down (S3) if = 2.5 METs, Verbalizes symptoms of exercise intolerance by Session 3 (S3), Demonstrate safe equipment use (S3) & follows exercise prescrition (6) and Other: See below Intervention & Plan Plan/Intervention: Instruct warm-up & cool-down if exercising at > 2 METs, Instruct on symptoms of exercise intolerance & actions to take, Instruct & monitor on saf, Assess intial functional capacity & safety risk and Other See below 30-day Reassessments 30 day Reassessments:: Progressing Reassessment Notes & Comments:: Pt is progressing in his exercise intensity. Will continue to monitor and increase intensity as tolerated. Exercise - Final/Discharge Physician Prescribed Exercise Modalities: Andrew Lanier AD-7 and SciFit Stepper Nutrition - 30-Day Assessment Weight Mgt (Other Care) Height: 5 ft 10 in Weight:: 211 lb 8 oz BMI: 30.3 Nutrition - 60-Day Assessment Weight Mgt (Other Care) Height: 5 ft 10 in Weight:: 211 lb 8 oz BMI: 30.3 Core - 30-Day Assessment Hypertension [place] [employer] Hypertension Guidelines Reassessment Notes & Comments:: BP's are within AHA normal limits on most days. Will continue to monitor and report to pt's physician as needed. Core - Final Assessment Hypertension [place] [employer] Hypertension Guidelines Reassessment Notes & Comments:: BP's are within AHA normal limits on most days. Will continue to monitor and report to pt's physician as needed. Core - 90 Day Assessment Visit Date of Eval: 03/27/25 Session #:: 31 Medication Compliance Preventative Medication(s):: Aspirin, Statin/lipid and Beta gustavo H/O mental health issues: depression, anxiety, or addiction?: No Doesn?t believe in the benefits of treatment?: No Believes medications are unnecessary or harmful?: No Has a concern about medication side effects?: No Expresses concern over the cost of medications?: No Outcomes/Goals: Verbalizes medications,desired effect & common side effects @ DC, Pt self-reports following medication regimen, Keeps card in wallet w/medications listed by DC and Other additional outcome/goals: Interventions/plans: Instruct on medication effects & side effects, Review medication list w/patient every two weeks, Instruct importance of taking meds as ordered & assist problem solving and Other additional 30-day Reassessments:: Progressing Reassessment Notes & Comments:: Pt reports he is taking medications as prescribed. Tobacco Use Tobacco Use: Non-smoker Hypertension Resting Blood Pressure:: 142/80 [place] [employer] Hypertension Guidelines Peak Exercise Blood Pressure:: 156/88 Outcomes/Goals: Able to verbalize/achieve optimal blood pressure <130/80, Incorporates diet changes & exercise for blood pressure control by DC and Other additional outcomes/goals Interventions/plan: Instruct on optimal blood pressure, hypertension & medications, Instruct on effects of sodium, alcohol, stress, exercise &hypertension and Other additional plan/interventions 30 day Reassessments:: Progressing Reassessment Notes & Comments:: BP's are within AHA normal limits on most days. Will continue to monitor and report to pt's physician as needed. Tobacco Cessation Referral Smoking Cessation Referral:: No Individual Education/Counseling:: No Education Schedule Given:: Yes Psychosocial - 30-Day Assess Referral to Behavioral Health PS - Interventions: Yes: Attend Stress Management Classes and No: Referral to Behavioral Health if PHQ-9 score >9:, No: Referral to [facility] and No: Referral to Physician if PHQ-9 if score is 5-9: Psychosocial - 60-Day Assess Referral to Behavioral Health PS - Interventions: Yes: Attend Stress Management Classes and No: Referral to Behavioral Health if PHQ-9 score >9:, No: Referral to [facility] and No: Referral to Physician if PHQ-9 if score is 5-9: Psychosocial - 90-Day Assess VIsit Date of Eval: 03/27/25 Session #:: 31 History of previous Mental disease:: No Psychosocial Test Tool Used:: Ferrans Power QOL Cardiac and PHQ-9 Questionnaire phq-9 Severity See PHQ-9 Score: 0 Referral to Behavioral Health PS - Interventions: Yes: Attend Stress Management Classes and No: Referral to Behavioral Health if PHQ-9 score >9:, No: Referral to [facility] and No: Referral to Physician if PHQ-9 if score is 5-9: Outcomes/Goals: See list Psychosocial Outcomes/Goals:: ID's personal stressors & 2 strategies to manage stress by discharge and Other Additional outcome/goals: Intervention/Plan: See List Interventions/Plan:: Assess stressors,coping strategies & signs of derpression on admission, Instruct/assist pt to develop coping & personal stress Mgt strategies, Refer to Behavioral Health if appropriate, Refer to Physician if appropriate, Instruct patient to recognize signs & symptoms of depression, Instruct patient to recog and Other additional plan/intervention 30-day Reassessments: 30 day Reassessments:: Progressing Reassessment Notes & Comments:: Pt denies any psychosocial issues at this time. Pt has attended stress management classes. Psychosocial - Final Assessmen Referral to Behavioral Health PS - Interventions: Yes: Attend Stress Management Classes and No: Referral to Behavioral Health if PHQ-9 score >9:, No: Referral to [facility] and No: Referral to Physician if PHQ-9 if score is 5-9: Nutrition - 90-Day Assessment Program Goals Nutrition Program Goals Patient has diagnosis of Hyperlipidemia (ICD E78)?: Yes Visit Date of Eval: 03/27/25 Session #:: 31 (nutrition score of 3) Cholesterol/Lipids (Other Core Measures) Determine presence & major risk factors that modify LDL goal: Cigarette smoking, Hypertension or hypertensive medication, Low HDL cholesterol <40 mg/dL*, Family history of premature CHD in Male < 55 years: female <65 yearsFa and Age men > 45 years; women >/= 55 years Outcomes/Goals: Pt IDs own risk factors & lifestyle modifications by Session 10, Verbalizes symptoms of angina & response by session 3., Pt independently manages and Other Additional Outcomes/Goals: Intervention/Plan: Advocate for lipid panel cholesterol medication if applicable, Instruct on personal lipid levels & lipid goals/NCEP guidelines, Instruct on cholesterol and Other additional plan/int 30-day Reassessments:: Progressing Reassessment Notes & Comments:: Pt has attended nutrition class lead by hospital terrazzo layer helper. Heart healthy diet encouraged. Diabetes (Other Core Measures) Diabetes Type: Diagnosis Type II ICD-10 E11 Insulin dependent injection/pump?: Yes Do you monitor your blood sugar at home?: Yes Outcomes/Goals:: Able to state symptoms of, Able to state, Able to state and Other additional Intervention/Plan:: Instruct on 30-day Reassessments:: Progressing Reassessment Notes & Comments:: Pt self monitors glucose, Pt has attended nutrition class with hospital terrazzo layer helper. Pt encouraged to follow cardiac carb controlled diet. Weight Mgt (Other Care) Height: 5 ft 10 in Weight:: 211 lb 8 oz BMI: 30.3 Diagnosis Overweight/Obesity BMI> 30% ICD-10 E66: Yes Diagnosis High BMI/Morbid Obesity BMI> 35% ICD-10 Z68: No Outcomes/Goals: Pt sets, maintains & shows weight loss goal & trend during rehab and Other additional outcomes/goals Intervention/Plan: Instruct on ideal BMI & set weight loss goal w/patient, Assist pt to ID & incorporate diet changes for weight loss by S9, Refer to Structured Weight Loss program as appropriate, Encourage goal of using 250-300dcal per session for weight loss and Other additional plan/interventions 30 day Reassessments:: Progressing Reassessment Notes & Comments:: Weight loss and following an ADA, heart healthy diet encouraged. Healthy Eating Habits Will attend diet classes:: Yes Outcomes/Goals:: Consume diet rich in vegs,fruits,whole grain/high fiber,fish,lean meat, Limit sat/trans fats,cholesterol & added salts & sugars and Other additional outcome/goals: Intervention/Plan:: Assess current eating habits and Other Additional plan/interventions 30-day Reassessments:: Progressing Reassessment Notes & Comments:: Pt attended class with hospital terrazzo layer helper. He has been given the tools to maintain a heart healthy diet Education Gave educational materials for:: Signs & symptoms of hypoglycemia, Signs & symptoms of hyperglycemia, Relate diabetes to coronary artery disease and Healthy eating Nutrition - Final Assessment Weight Mgt (Other Care) Height: 5 ft 10 in Weight:: 211 lb 8 oz BMI: 30.3
[2025-03-27 09:10] VITALS: BP 142/80; BMI 30.3
== END 2025-04-09 23:59 ==
LOC: CR 08:00
PROVIDERS: PCP Physician Assistant; Referring Provider Thoracic Surgery (Cardiothoracic Vascular Surgery); Visit Provider Thoracic Surgery (Cardiothoracic Vascular Surgery)
DX: Z95.1 Presence of aortocoronary bypass graft (principal)
CPT/HCPCS: 93798